=== PATIENT | female | born 1965 | race Caucasian/White ===

== ENCOUNTER 2016-09-19 | Outpatient (CLI) | payer MEDICARE, MEDICAID | END 2016-09-19 20:29 | disposition critical access hospital (66) | CPT/HCPCS: A0425; A0429 ==

== ENCOUNTER 2016-09-19 20:46 | Emergency (ER) | payer MEDICARE, MEDICAID ==
[2016-09-19] MEDS ORDERED: KETOROLAC 60 MG/2 ML VIAL IM STA (21:39)
[2016-09-19] MEDS ORDERED: KETOROLAC 30 MG/ML VIAL ONE (21:42)
[2016-09-19] MEDS ORDERED: IPRATROPIUM/ALBUTEROL 3 ML NEB INH STA (22:17)
[2016-09-19] MEDS ORDERED: IPRATROPIUM/ALBUTEROL 3 ML NEB INH ONE (22:28)
== END 2016-09-20 00:02 | disposition home or self-care (01) ==
DX: J44.1 Chronic obstructive pulmonary disease with (acute) exacerbation (principal); D72.829 Elevated white blood cell count, unspecified; E11.9 Type 2 diabetes mellitus without complications; F17.200 Nicotine dependence, unspecified, uncomplicated; Z88.0 Allergy status to penicillin; Z88.2 Allergy status to sulfonamides; Z88.1 Allergy status to other antibiotic agents
CPT/HCPCS: 36415; 71020; 80053; 81003; 83690; 85025; 87275; 87276; 94640; 96372; 99283; 99284; J7620

== ENCOUNTER 2016-09-26 | Outpatient (CLI) | payer MEDICARE, MEDICAID | END 2016-09-26 17:26 | disposition critical access hospital (66) | CPT/HCPCS: A0425; A0429 ==

== ENCOUNTER 2016-09-26 17:41 | Emergency (ER) | payer MEDICARE, MEDICAID ==
[2016-09-26] MEDS ORDERED: LORazepam 0.5 MG TABLET PO STA ×3 (18:46→22:47)
[2016-09-26] MEDS ORDERED: LORazepam 0.5 MG TABLET ONE ×3 (18:48→22:49)
[2016-09-26] MEDS ORDERED: OLANZapine ODT 5 MG TABLET TL ONE ×4 (19:21→22:49)
[2016-09-26] MEDS ORDERED: KETOROLAC 60 MG/2 ML VIAL IM STA (21:07)
[2016-09-26] MEDS ORDERED: KETOROLAC 60 MG/2 ML VIAL ONE (21:08)
== END 2016-09-27 09:58 ==
DX: F20.9 Schizophrenia, unspecified (principal); R45.851 Suicidal ideations; E11.9 Type 2 diabetes mellitus without complications; F17.200 Nicotine dependence, unspecified, uncomplicated; S20.319A Abrasion of unspecified front wall of thorax, initial encounter; X78.9XXA Intentional self-harm by unspecified sharp object, initial encounter
CPT/HCPCS: 36415; 80053; 80306; 80307; 81001; 83690; 85025; 87086; 96372; 99285; A9270; G0480

== ENCOUNTER 2016-10-01 22:06 | Emergency (ER) | payer MEDICARE, MEDICAID ==
[2016-10-01] MEDS ORDERED: LORazepam 0.5 MG TABLET PO STA (22:19)
[2016-10-01] MEDS ORDERED: KETOROLAC 30 MG/ML VIAL IM STA (22:19)
[2016-10-01] MEDS ORDERED: KETOROLAC 30 MG/ML VIAL ONE (22:23)
[2016-10-01] MEDS ORDERED: LORazepam 0.5 MG TABLET ONE (22:23)
== END 2016-10-02 08:00 ==
DX: F33.2 Major depressive disorder, recurrent severe without psychotic features (principal); R45.851 Suicidal ideations; E11.9 Type 2 diabetes mellitus without complications; G40.909 Epilepsy, unspecified, not intractable, without status epilepticus; K21.9 Gastro-esophageal reflux disease without esophagitis; J44.9 Chronic obstructive pulmonary disease, unspecified; F17.200 Nicotine dependence, unspecified, uncomplicated
CPT/HCPCS: 36415; 80053; 80164; 80306; 80307; 81001; 83036; 83690; 84443; 85025; 96372; 99283; 99285; A9270; G0480

== ENCOUNTER 2016-10-02 | Outpatient (CLI) | payer MEDICARE, MEDICAID | END 2016-10-02 08:18 | DX: R45.851 Suicidal ideations (principal) | CPT/HCPCS: A0425; A0428 ==

== ENCOUNTER 2016-10-17 | Outpatient (CLI) | payer MEDICARE, MEDICAID | END 2016-10-17 19:08 | disposition critical access hospital (66) | DX: R45.851 Suicidal ideations (principal) | CPT/HCPCS: A0425; A0429 ==

== ENCOUNTER 2016-10-17 19:27 | Emergency (ER) | payer MEDICARE, MEDICAID ==
[2016-10-17] MEDS ORDERED: ACETAMINOPHEN 500 MG TABLET PO STA (22:03)
[2016-10-17] MEDS ORDERED: ACETAMINOPHEN 500 MG TABLET PO ONE (22:08)
[2016-10-18] MEDS ORDERED: MIRTAZAPINE 15 MG TABLET PO STA (00:11)
[2016-10-18] MEDS ORDERED: ACETAMINOPHEN 325 MG TABLET PO STA (07:51)
[2016-10-18] MEDS ORDERED: ACETAMINOPHEN 325 MG TABLET PO ONE (07:53)
[2016-10-18] MEDS ORDERED: PRAZOSIN 1 MG CAPSULE PO STA (08:23)
[2016-10-18] MEDS ORDERED: LORazepam 0.5 MG TABLET PO STA (08:25)
[2016-10-18] MEDS ORDERED: PANTOPRAZOLE 40 MG TABLET PO STA (08:25)
[2016-10-18] MEDS ORDERED: PANTOPRAZOLE 40 MG TABLET ONE (08:29)
[2016-10-18] MEDS ORDERED: LORazepam 0.5 MG TABLET ONE (08:29)
[2016-10-18] MEDS ORDERED: DIVALPROEX ER 250 MG TABLET PO SCH (09:00)
[2016-10-18] MEDS ORDERED: lamoTRIgine 25 MG TABLET PO SCH (09:00)
[2016-10-18] MEDS ORDERED: BUTALB/ACETAM/CAFF 50/325/40MG TABLET PO STA (13:27)
== END 2016-10-18 14:16 ==
DX: F41.9 Anxiety disorder, unspecified (principal); F32.9 Major depressive disorder, single episode, unspecified; R45.851 Suicidal ideations; F20.9 Schizophrenia, unspecified; E11.9 Type 2 diabetes mellitus without complications; G40.909 Epilepsy, unspecified, not intractable, without status epilepticus; J44.9 Chronic obstructive pulmonary disease, unspecified; F17.200 Nicotine dependence, unspecified, uncomplicated
CPT/HCPCS: 36415; 80053; 80306; 81003; 83690; 85025; 99284; 99285; A9270

== ENCOUNTER 2016-11-06 | Outpatient (CLI) | payer MEDICARE, MEDICAID | END 2016-11-06 00:13 | disposition critical access hospital (66) | CPT/HCPCS: A0425; A0429 ==

== ENCOUNTER 2016-11-06 00:31 | Emergency (ER) | payer MEDICARE, MEDICAID ==
[2016-11-06] MEDS ORDERED: ONDANSETRON ODT 4 MG TABLET TL STA (01:03)
[2016-11-06] MEDS ORDERED: KETOROLAC 60 MG/2 ML VIAL IM STA (01:03)
[2016-11-06] MEDS ORDERED: PROMETHAZINE 25 MG/1 ML VIAL IM STA (01:04)
[2016-11-06] MEDS ORDERED: PROMETHAZINE 25 MG/1 ML VIAL ONE (01:16)
[2016-11-06] MEDS ORDERED: ONDANSETRON ODT 4 MG TABLET ONE (01:16)
[2016-11-06] MEDS ORDERED: KETOROLAC 60 MG/2 ML VIAL ONE (01:16)
[2016-11-06] MEDS ORDERED: HYDROmorphone 1 MG/ML SYRINGE IM STA (02:04)
[2016-11-06] MEDS ORDERED: HYDROmorphone 1 MG/ML SYRINGE ONE (02:07)
== END 2016-11-06 05:05 | disposition home or self-care (01) ==
DX: G44.89 Other headache syndrome (principal); M54.9 Dorsalgia, unspecified; T25.031A Burn of unspecified degree of right toe(s) (nail), initial encounter; X58.XXXA Exposure to other specified factors, initial encounter; G40.909 Epilepsy, unspecified, not intractable, without status epilepticus; E11.9 Type 2 diabetes mellitus without complications; J44.9 Chronic obstructive pulmonary disease, unspecified; F17.200 Nicotine dependence, unspecified, uncomplicated; Z86.73 Personal history of transient ischemic attack (TIA), and cerebral infarction without residual deficits
CPT/HCPCS: 96372; 99283; 99284; J1170; Q0162

== ENCOUNTER 2016-11-11 | Outpatient (CLI) | payer MEDICARE, MEDICAID | END 2016-11-11 21:41 | disposition critical access hospital (66) | CPT/HCPCS: A0425; A0427 ==

== ENCOUNTER 2016-11-11 22:00 | Emergency (ER) | payer MEDICARE, MEDICAID ==
[2016-11-11] MEDS ORDERED: IPRATROPIUM/ALBUTEROL 3 ML NEB INH STA (22:04)
[2016-11-11] MEDS ORDERED: KETOROLAC 60 MG/2 ML VIAL IM STA (22:50)
[2016-11-11] MEDS ORDERED: KETOROLAC 60 MG/2 ML VIAL ONE (23:02)
[2016-11-11] MEDS ORDERED: IPRATROPIUM 0.2 MG/ML NEB INH ONE (23:25)
[2016-11-12] MEDS ORDERED: predniSONE 20 MG TABLET PO STA (00:22)
[2016-11-12] MEDS ORDERED: predniSONE 20 MG TABLET ONE (00:37)
== END 2016-11-12 00:53 | disposition home or self-care (01) ==
DX: J44.9 Chronic obstructive pulmonary disease, unspecified (principal); F17.200 Nicotine dependence, unspecified, uncomplicated; E11.9 Type 2 diabetes mellitus without complications; F20.9 Schizophrenia, unspecified
CPT/HCPCS: 81003; 94640; 96372; 99284; A9270; J7512

== ENCOUNTER 2016-12-24 15:54 | Outpatient (CLI) | payer MEDICARE, MEDICAID | END 2016-12-24 15:55 | disposition critical access hospital (66) | DX: R05 Cough (principal); R07.81 Pleurodynia | CPT/HCPCS: A0425; A0427 ==

== ENCOUNTER 2016-12-24 16:14 | Inpatient (IN) | payer MEDICARE, MEDICAID ==
[2016-12-24] MEDS ORDERED: ALBUTEROL NEB 2.5 MG/3 ML INH STA (16:27)
[2016-12-24] MEDS ORDERED: predniSONE 20 MG TABLET PO STA (16:27)
[2016-12-24] MEDS ORDERED: predniSONE 20 MG TABLET ONE (16:31)
[2016-12-24] MEDS ORDERED: ALBUTEROL NEB 2.5 MG/3 ML INH ONE (16:38)
[2016-12-24] MEDS ORDERED: IPRATROPIUM/ALBUTEROL 3 ML NEB INH ONE (16:53)
[2016-12-24] MEDS ORDERED: IPRATROPIUM/ALBUTEROL 3 ML NEB INH STA (16:57)
[2016-12-24] MEDS ORDERED: LEVALBUTEROL 1.25 MG INH ONE ×2 (17:29→17:38)
[2016-12-24] MEDS ORDERED: LEVALBUTEROL 1.25 MG INH STA (17:36)
[2016-12-24] MEDS ORDERED: SODIUM CHLORIDE FLUSH 0.9% 10 ML SYRINGE IVP PRN (18:41)
[2016-12-24] MEDS ORDERED: ALBUTEROL NEB 2.5 MG/3 ML INH PRN (18:45)
[2016-12-24] MEDS: IPRATROPIUM/ALBUTEROL 3 ML NEB INH PRN (20:40)
[2016-12-24] MEDS: SODIUM CHLORIDE 0.9% 1,000 ML IV SCH (21:15)
[2016-12-24] MEDS: SODIUM CHLORIDE FLUSH 0.9% 10 ML SYRINGE IVP SCH (21:15)
[2016-12-24] MEDS: methylPREDNISolone SUCCINATE 40 MG/ML VIAL IVP SCH (21:15)
[2016-12-24] MEDS: lamoTRIgine 25 MG TABLET PO SCH (21:15)
[2016-12-24] MEDS: INSULIN ASPART 300 UNIT/3 ML PEN SUBQ SCH (21:16)
[2016-12-24] MEDS: LORazepam 0.5 MG TABLET PO SCH (21:16)
[2016-12-25] MEDS ORDERED: ACETAMINOPHEN 325 MG TABLET PO PRN (00:24)
[2016-12-25] MEDS ORDERED: BUTALB/ACETAM/CAFF 50/325/40MG TABLET PO PRN (00:25)
[2016-12-25] MEDS: SODIUM CHLORIDE FLUSH 0.9% 10 ML SYRINGE IVP SCH ×3 (05:51→20:49)
[2016-12-25] MEDS: methylPREDNISolone SUCCINATE 40 MG/ML VIAL IVP SCH ×3 (05:51→20:49)
[2016-12-25] MEDS: PANTOPRAZOLE 40 MG TABLET PO SCH ×2 (06:03→16:29)
[2016-12-25] MEDS: oxyCODONE 5 MG TABLET PO PRN ×2 (06:03→11:05)
[2016-12-25] MEDS: SODIUM CHLORIDE 0.9% 1,000 ML IV SCH (06:58)
[2016-12-25] MEDS ORDERED: NON FORMULARY MED (Omeprazole [Prilosec] 20 MG) PO SCH (07:00)
[2016-12-25] MEDS: IPRATROPIUM/ALBUTEROL 3 ML NEB INH PRN ×3 (08:30→21:01)
[2016-12-25] MEDS: ENOXAPARIN 40 MG/0.4 ML SYRINGE SUBQ SCH (09:00)
[2016-12-25] MEDS: POLYETHYLENE GLYCOL 3350 17 GM PACKET PO SCH (09:00)
[2016-12-25] MEDS: LORazepam 0.5 MG TABLET PO SCH ×2 (09:01→20:49)
[2016-12-25] MEDS: lamoTRIgine 25 MG TABLET PO SCH ×2 (09:01→20:49)
[2016-12-25] MEDS: ESCITALOPRAM 10 MG TABLET PO SCH (09:01)
[2016-12-25] MEDS: VERAPAMIL ER 180 MG TABLET PO SCH (09:01)
[2016-12-25] MEDS: INSULIN ASPART 300 UNIT/3 ML PEN SUBQ SCH ×4 (09:01→21:01)
[2016-12-25] MEDS ORDERED: BENZOCAINE/MENTHOL LOZENGE MM PRN (20:55)
[2016-12-25] MEDS ORDERED: OLANZapine ODT 5 MG TABLET TL SCH (21:00)
[2016-12-26] MEDS: PANTOPRAZOLE 40 MG TABLET PO SCH (06:27)
[2016-12-26] MEDS: methylPREDNISolone SUCCINATE 40 MG/ML VIAL IVP SCH (06:27)
[2016-12-26] MEDS: SODIUM CHLORIDE FLUSH 0.9% 10 ML SYRINGE IVP SCH (06:27)
[2016-12-26] MEDS: IPRATROPIUM/ALBUTEROL 3 ML NEB INH PRN (07:40)
[2016-12-26] MEDS: LORazepam 0.5 MG TABLET PO SCH (08:28)
[2016-12-26] MEDS: lamoTRIgine 25 MG TABLET PO SCH (08:28)
[2016-12-26] MEDS: POLYETHYLENE GLYCOL 3350 17 GM PACKET PO SCH (08:29)
[2016-12-26] MEDS: VERAPAMIL ER 180 MG TABLET PO SCH (08:29)
[2016-12-26] MEDS: ESCITALOPRAM 10 MG TABLET PO SCH (08:29)
[2016-12-26] MEDS: ENOXAPARIN 40 MG/0.4 ML SYRINGE SUBQ SCH (08:29)
[2016-12-26] MEDS: INSULIN ASPART 300 UNIT/3 ML PEN SUBQ SCH (08:40)
[2016-12-26] MEDS ORDERED: predniSONE 20 MG TABLET PO SCH (09:00)
== END 2016-12-26 12:53 | disposition home or self-care (01) | DRG 189 ==
DX: J96.20 Acute and chronic respiratory failure, unspecified whether with hypoxia or hypercapnia (principal); F17.200 Nicotine dependence, unspecified, uncomplicated; J44.1 Chronic obstructive pulmonary disease with (acute) exacerbation; E11.9 Type 2 diabetes mellitus without complications; F32.9 Major depressive disorder, single episode, unspecified; K44.9 Diaphragmatic hernia without obstruction or gangrene; F41.9 Anxiety disorder, unspecified; F20.9 Schizophrenia, unspecified; G40.909 Epilepsy, unspecified, not intractable, without status epilepticus; F17.210 Nicotine dependence, cigarettes, uncomplicated; K21.9 Gastro-esophageal reflux disease without esophagitis; Z79.52 Long term (current) use of systemic steroids; F43.10 Post-traumatic stress disorder, unspecified; Z79.899 Other long term (current) drug therapy; Z99.81 Dependence on supplemental oxygen; Z87.01 Personal history of pneumonia (recurrent); Z86.73 Personal history of transient ischemic attack (TIA), and cerebral infarction without residual deficits

== ENCOUNTER 2017-01-20 16:46 | Outpatient (CLI) | payer MEDICARE, MEDICAID | END 2017-01-20 16:47 | disposition critical access hospital (66) | LOC: EMS 16:46 | PROVIDERS: ATTEND Surgery | DX: R10.9 Unspecified abdominal pain (principal); M25.519 Pain in unspecified shoulder | CPT/HCPCS: A0425; A0429 ==

== ENCOUNTER 2017-01-20 17:08 | Emergency (ER) | payer MEDICARE, MEDICAID ==
[2017-01-20] MEDS ORDERED: MAG HYDROX/AL HYDROX/SIMETH 30 ML UDC PO STA (17:22)
[2017-01-20] MEDS ORDERED: LIDOCAINE VISCOUS 2% 15 ML UDC MM STA (17:22)
--- NOTE | 2017-01-20 17:26 | ED Physician Documentation ---
PD HPI ABD PAIN - Stated complaint Stated Complaint: abd px - Chief complaint Chief Complaint: Abd Pain - History obtained from History obtained from: Patient, EMS - Additional information Additional information: 51-year-old woman with history of cholecystectomy, appendectomy, hiatal hernia and gastritis by EEG a little under a year ago presents with a week and a half of constant upper abdominal pain not related to eating. She tried Tylenol 3 without any relief. She is not currently on a PPI cousin the past PPI made her feel nauseous. Review of Systems Ten Systems: 10 systems reviewed and negative Constitutional: denies: Fever, Chills Nose: reports: Reviewed and negative Cardiac: reports: Reviewed and negative Respiratory: reports: Reviewed and negative PD PAST MEDICAL HISTORY - Past Medical History Cardiovascular: Other Respiratory: COPD, Pneumonia Neuro: TIA, Seizure disorder Endocrine/Autoimmune: Type 2 diabetes GI: GERD, Hiatal hernia WEB UI DEVELOPER: None : None HEENT: None Psych: Schizophrenia Musculoskeletal: None Derm: None - Past Surgical History Past Surgical History: Yes General: Bowel surgery Ortho: Other /WEB UI DEVELOPER: 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 HEENT: Cataracts - Present Medications Home Medications: Ambulatory Orders Medication Instructions Recorded Confirmed Verapamil ER [Calan SA] 180 mg PO DAILY 03/25/16 01/20/17 Lamotrigine 25 mg PO DAILY 06/20/16 01/20/17 Olanzapine 10 mg PO BID 06/20/16 01/20/17 Omeprazole [PriLOSEC] 20 mg PO BIDAC 06/20/16 01/20/17 Lorazepam [Ativan] 1 mg ORAL QPM 10/18/16 01/20/17 Albuterol Sulf [Ventolin Hfa 2 puffs INH Q4H PRN 12/25/16 01/20/17 Inhaler] Citalopram Hydrobromide 40 mg PO DAILY 12/25/16 01/20/17 [Citalopram HBr] Divalproex ER [Depakote ER] 1,250 mg PO QPM 12/25/16 01/20/17 Divalproex ER [Depakote ER] 750 mg PO DAILY 12/25/16 01/20/17 Famotidine 20 mg PO DAILY 12/25/16 01/20/17 Lorazepam 0.5 mg PO DAILY 12/25/16 01/20/17 Prazosin HCl [Minipress] 5 mg PO QPM 12/25/16 01/20/17 Rizatriptan Benzoate [Rizatriptan] 10 mg PO ONCE PRN 12/25/16 01/20/17 Thioridazine HCl 50 mg PO BID PRN 12/25/16 01/20/17 Trazodone HCl 100 - 200 mg PO QPM PRN 12/25/16 01/20/17 hydrOXYzine PAMOATE [Vistaril] 50 mg PO BID PRN 12/25/16 01/20/17 Sucralfate 1 gm PO ACHS #90 tablet 01/20/17 - Allergies Allergies/Adverse Reactions: Allergies Allergy/AdvReac Type Severity Reaction Status Date / Time azithromycin Allergy Severe Hives Verified 01/20/17 17:19 haloperidol Allergy Severe Anaphylaxis Verified 01/20/17 17:19 Penicillins Allergy Severe Anaphylaxis Verified 01/20/17 17:19 amoxicillin [Amoxicillin] Allergy Intermediate Rash Verified 01/20/17 17:19 grapefruit Allergy Intermediate Rash Verified 01/20/17 17:19 iodine Allergy Intermediate Rash Verified 01/20/17 17:19 Sulfa (Sulfonamide Allergy Intermediate Rash Verified 01/20/17 17:19 Antibiotics) haloperidol lactate * AdvReac Rash Verified 01/20/17 17:19 [From Haldol] - Social History Does the pt smoke?: Yes Smoking Status: Current every day smoker Does the pt drink ETOH?: No Does the pt have substance abuse?: No - Immunizations Immunizations are current?: No Immunizations: TDAP >10years/unknown - POLST Patient has POLST: No PD ED PE NORMAL - Vitals Vital signs reviewed: Yes - General General: Alert and oriented X 3, No acute distress - Abdomen Abdomen: Normal bowel sounds, Soft, Other (Mild epigastric TTP) - Neuro Neuro: Alert and oriented X 3, Normal speech - Psych Psych: Normal mood, Normal affect Results - Vitals Vitals: Vital Signs - 24 hr 01/20/17 01/20/17 17:11 18:25 Temperature 98.6 C H Heart Rate 81 72 Respiratory 18 18 Rate Blood Pressure 133/84 H 140/75 H O2 Saturation 91 L 95 Oxygen O2 Source [With Activity] Room air O2 Source [Without Activity] Room air O2 Source Room air - Labs Labs: Laboratory Tests 01/20/17 01/20/17 17:28 17:28 WBC 11.7 H RBC 4.81 Hgb 14.1 Hct 43.5 MCV 90.5 MCH 29.4 MCHC 32.5 RDW 15.6 H Plt Count 321 MPV 9.3 Neut # Not Reportable Lymph # Not Reportable [place] # Not Reportable Eos # Not Reportable Baso # Not Reportable Absolute Nucleated RBC Not Reportable Total Counted 100 Band Neuts % (Manual) 2 Reactive Lymphs % (Man) 5 Neutrophils # (Manual) 5.6 Lymphocytes # (Manual) 4.8 H Monocytes # (Manual) 1.2 H Eosinophils # (Manual) 0.1 Nucleated RBCs Not Reportable Differential Comment MANUAL DIFFERENTIAL Platelet Estimate NORMAL (130-450,000) Platelet Morphology NORMAL APPEARANCE RBC Morph Micro Appear 1+ ANISOCYTOSIS Sodium 139 Potassium 4.5 Chloride 105 Carbon Dioxide 27 Anion Gap 7.0 BUN 15 Creatinine 0.9 Estimated GFR (MDRD) 66 L Glucose 109 H Calcium 9.2 Total Bilirubin 0.2 AST 19 ALT 15 Alkaline Phosphatase 61 Total Protein 7.0 Albumin 3.7 Globulin 3.3 Albumin/Globulin Ratio 1.1 Lipase < 10 L - Rads (name of study) Ct A/P Radiology: EMP read contemporaneously (NAD) PD MEDICAL DECISION MAKING - ED course ED course: 51-year-old woman with upper dominant pain and known history of gastritis and hiatal hernia presents with upper abdominal pain not related the ED. She has no gallbladder or appendix. A GI cocktail was tried with absolutely no relief, at that juncture CT was ordered. Also morphine IV. Her CT was normal. She refused to go back on a PPI, because of the side effects. We discussed potentially Pepcid, but her insurance won't cover it. Departure - Departure Disposition: 01 Home, Self Care Clinical Impression: Abdominal pain Qualifiers: Abdominal location: epigastric Qualified Code(s): R10.13 - Epigastric pain Condition: Good Record reviewed to determine appropriate education?: Yes Instructions: Abdominal Pain Prescriptions: Sucralfate 1 gm PO ACHS #90 tablet Comments: Call your doctor to arrange a follow up appointment. Make the next available appointment. In the interim return anytime if worse or if new symptoms develop. Your blood pressure was elevated today on check in to the emergency department. This does not mean that you have hypertension, it is a common phenomenon to check into the emergency department and have elevated blood pressure. I recommend that you see your primary care physician within the week to have it rechecked when you're feeling better.
[2017-01-20] MEDS ORDERED: LIDOCAINE VISCOUS 2% 15 ML UDC MM ONE (17:31)
[2017-01-20] MEDS ORDERED: MAG HYDROX/AL HYDROX/SIMETH 30 ML UDC ONE (17:31)
[2017-01-20 17:36] LABS: EOSINOPHILS % (AUTO) 1.7 %; HCT - HEMATOCRIT 43.5 % (37.0-47.0); HGB - HEMOGLOBIN 14.1 g/dL (12.0-16.0); LYMPHOCYTES % (AUTO) 32.7 %; MEAN CORPUSCULAR HEMOGLOBIN 29.4 pg (27.0-31.0); MEAN CORPUSCULAR HGB CONC 32.5 g/dL (32.0-36.0); MEAN CORPUSCULAR VOLUME 90.5 fL (81.0-99.0); MEAN PLATELET VOLUME 9.3 fL (7.9-10.8); MONOCYTES % (AUTO) 17.3 %; NEUTROPHILS % (AUTO) 47.3 %; RED BLOOD COUNT 4.81 10^6/uL (4.20-5.40); RED CELL DISTRIBUTION WIDTH 15.6 % (12.0-15.0); UNCORRECTED WHITE BLOOD COUNT 11.7 x10^3/uL; WHITE BLOOD COUNT 11.7 x10^3/uL (4.8-10.8)
[2017-01-20 17:57] LABS: ALBUMIN/GLOBULIN RATIO 1.1 (1.0-2.2); BILIRUBIN,TOTAL 0.2 mg/dL (0.2-1.0); BUN - BLOOD UREA NITROGEN 15 mg/dL (6-20); CALCIUM 9.2 mg/dL (8.5-10.3); CARBON DIOXIDE - CO2 27 mmol/L (21-32); CHLORIDE 105 mmol/L (101-111); CREATININE 0.9 mg/dL (0.4-1.0); GFR - MDRD 66 (>89); GLUCOSE 109 mg/dL (70-100); LIPASE < 10 U/L (22-51); POTASSIUM 4.5 mmol/L (3.5-5.0); SODIUM 139 mmol/L (135-145)
[2017-01-20] MEDS ORDERED: MORPHINE 2 MG/ML SYRINGE ONE (18:03)
[2017-01-20] MEDS ORDERED: MORPHINE 2 MG/ML SYRINGE IVP STA (18:03)
[2017-01-20 18:30] LABS: BAND NEUTROPHILS % (MANUAL) 2 %; EOSINOPHILS % (MANUAL) 1 %; LYMPHOCYTES % (MANUAL) 36 %; NEUTROPHILS % (MANUAL) 46 %; PLATELET ESTIMATE, MANUAL NORMAL (130-450,000) (NORMAL); PLATELET MORPHOLOGY NORMAL APPEARANCE (NORMAL); TOTAL CELLS COUNTED 100
[2017-01-20 18:31] LABS: NP AUTO DIFFERENTIAL? YES; NP MAN DIFFERENTIAL? NO
[2017-01-20] MEDS ORDERED: IOPAMIDOL-300 100 ML VIAL IVP ONE (19:01)
--- NOTE | 2017-01-20 19:34 | CT Preliminary Report ---
Exam: CT Abdomen/Pelvis W/ IMPRESSION: 1. Status post cholecystectomy, splenectomy, and hysterectomy. 2. No evidence of acute abdominal or pelvic process. [facility] SITE ID: [id number]
--- NOTE | 2017-01-20 19:37 | CT Report ---
EXAM: CT ABDOMEN AND PELVIS EXAM DATE: 01/20/2017 07:08 PM. CLINICAL HISTORY: Upper abdominal pain. COMPARISONS: 07/10/2016. TECHNIQUE: Routine helical CT imaging was performed through the abdomen and pelvis. IV contrast: 100 cc Isovue-300. Enteric contrast: No. Reconstructions: Coronal and sagittal. In accordance with CT protocol optimization, one or more of the following dose reduction techniques w ere utilized for this exam: automated exposure control, adjustment of mA and/or KV based on patient s ize, or use of iterative reconstructive technique. FINDINGS: Lung Bases: Unremarkable. Liver: Normal. No masses. Gallbladder/Bile Ducts: Gallbladder is surgically absent. No evidence of biliary obstruction. Spleen: Surgically absent. Small splenule is noted in the left paracolic gutter. Pancreas: Normal. Adrenal Glands: Normal. Kidneys: Normal. No masses or hydronephrosis. Peritoneal Cavity/Bowel: Normal. No free fluid, free air or adenopathy. No masses or acute inflammato ry process. The appendix is not visualized. Pelvic Organs: Urinary bladder has normal contour. Patient is status post hysterectomy. Vasculature: No aneurysms or other significant abnormality. Bones: No significant abnormality. Other: None. IMPRESSION: 1. Status post cholecystectomy, splenectomy, and hysterectomy. 2. No evidence of acute abdominal or pelvic process. [facility] Referring Provider Line: [phone] SITE ID: [id number]
[2017-01-20] MEDS ORDERED: HYDROcod/ACET 5/325 Prepack 6 PO STA (19:48)
[2017-01-20] MEDS ORDERED: HYDROcod/ACET 5/325 Prepack 6 PO ONE (19:52)
[2017-01-20 19:54] VITALS: BP 133/77
== END 2017-01-20 20:02 | disposition home or self-care (01) ==
LOC: ED 17:08
DX: R10.13 Epigastric pain (principal); R03.0 Elevated blood-pressure reading, without diagnosis of hypertension; E11.9 Type 2 diabetes mellitus without complications; J44.9 Chronic obstructive pulmonary disease, unspecified; K21.9 Gastro-esophageal reflux disease without esophagitis; Z86.73 Personal history of transient ischemic attack (TIA), and cerebral infarction without residual deficits; Z87.19 Personal history of other diseases of the digestive system; F17.200 Nicotine dependence, unspecified, uncomplicated
CPT/HCPCS: 36415; 74177; 80053; 83690; 85025; 96374; 99283; 99284; A9270; Q9967

== ENCOUNTER 2017-02-02 09:29 | Emergency (ER) | payer MEDICARE, MEDICAID ==
[2017-02-02 11:20] VITALS: BP 104/67
--- NOTE | 2017-02-02 12:39 | ED Physician Documentation ---
PD HPI UPPER EXT INJURY - Stated complaint Stated Complaint: LEFT SHOULDER INJ - Chief complaint Chief Complaint: Ext Problem - History obtained from History obtained from: Patient - History of Present Illness Location: Left, Shoulder Type of injury: Other (has been using it with simple lifting and noted onset of pain with ROM, particularly abduction and lifting.). No: Fall, Twist, Blunt / blow Timing - duration: Days Review of Systems Constitutional: denies: Fever, Chills Skin: denies: Rash, Lesions Musculoskeletal: reports: Joint pain (left shoulder suprascapular area). denies : Neck pain, Back pain Neurologic: denies: Focal weakness, Numbness PD PAST MEDICAL HISTORY - Past Medical History Past Medical History: Yes Cardiovascular: Other Respiratory: COPD, Pneumonia Neuro: TIA, Seizure disorder Endocrine/Autoimmune: Type 2 diabetes GI: GERD, Hiatal hernia COVERSTITCH BINDER: None : None HEENT: None Psych: Schizophrenia Musculoskeletal: None Derm: None - Past Surgical History Past Surgical History: Yes General: Bowel surgery Ortho: Other /COVERSTITCH BINDER: 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 HEENT: Cataracts - Present Medications Home Medications: Ambulatory Orders Medication Instructions Recorded Confirmed Verapamil ER [Calan SA] 180 mg PO DAILY 03/25/16 01/20/17 Lamotrigine 25 mg PO DAILY 06/20/16 01/20/17 Olanzapine 10 mg PO BID 06/20/16 01/20/17 Omeprazole [PriLOSEC] 20 mg PO BIDAC 06/20/16 01/20/17 Lorazepam [Ativan] 1 mg ORAL QPM 10/18/16 01/20/17 Albuterol Sulf [Ventolin Hfa 2 puffs INH Q4H PRN 12/25/16 01/20/17 Inhaler] Citalopram Hydrobromide 40 mg PO DAILY 12/25/16 01/20/17 [Citalopram HBr] Divalproex ER [Depakote ER] 1,250 mg PO QPM 12/25/16 01/20/17 Divalproex ER [Depakote ER] 750 mg PO DAILY 12/25/16 01/20/17 Famotidine 20 mg PO DAILY 12/25/16 01/20/17 Lorazepam 0.5 mg PO DAILY 12/25/16 01/20/17 Prazosin HCl [Minipress] 5 mg PO QPM 12/25/16 01/20/17 Rizatriptan Benzoate [Rizatriptan] 10 mg PO ONCE PRN 12/25/16 01/20/17 Thioridazine HCl 50 mg PO BID PRN 12/25/16 01/20/17 Trazodone HCl 100 - 200 mg PO QPM PRN 12/25/16 01/20/17 hydrOXYzine PAMOATE [Vistaril] 50 mg PO BID PRN 12/25/16 01/20/17 Sucralfate 1 gm PO ACHS #90 tablet 01/20/17 Naproxen [Naprosyn] 500 mg PO BID #20 tablet 02/02/17 - Allergies Allergies/Adverse Reactions: Allergies Allergy/AdvReac Type Severity Reaction Status Date / Time azithromycin Allergy Severe Hives Verified 01/20/17 17:19 haloperidol Allergy Severe Anaphylaxis Verified 01/20/17 17:19 Penicillins Allergy Severe Anaphylaxis Verified 01/20/17 17:19 amoxicillin [Amoxicillin] Allergy Intermediate Rash Verified 01/20/17 17:19 grapefruit Allergy Intermediate Rash Verified 01/20/17 17:19 iodine Allergy Intermediate Rash Verified 01/20/17 17:19 Sulfa (Sulfonamide Allergy Intermediate Rash Verified 01/20/17 17:19 Antibiotics) haloperidol lactate * AdvReac Rash Verified 01/20/17 17:19 [From Haldol] - Social History Does the pt smoke?: Yes Smoking Status: Current every day smoker Does the pt drink ETOH?: No Does the pt have substance abuse?: No - Immunizations Immunizations are current?: No Immunizations: TDAP >10years/unknown - POLST Patient has POLST: No PD ED PE NORMAL - Vitals Vital signs reviewed: Yes - General General: Alert and oriented X 3, No acute distress, Well developed/nourished - Neck Neck: Supple, no meningeal sign, No bony TTP, No adenopathy - Cardiac Cardiac: RRR, No murmur - Respiratory Respiratory: Clear bilaterally - Derm Derm: Normal color, Warm and dry, No rash - Extremities Extremities: Other (left shoulder with some tenderness in suprascapular area. No bony tenderness nor deformity. No dislocation. ) - Neuro Neuro: Alert and oriented X 3, No motor deficit, No sensory deficit Results - Vitals Vitals: Oxygen O2 Source [With Activity] Room air O2 Source [Without Activity] Room air O2 Source Room air PD MEDICAL DECISION MAKING - ED course Complexity details: considered differential (seems rotator cuff like, presume strain. No impact and exam does not suggest fx nor dislocation. ), d/w patient Departure - Departure Disposition: 01 Home, Self Care Clinical Impression: Shoulder pain, left Qualifiers: Chronicity: acute Qualified Code(s): M25.512 - Pain in left shoulder Condition: Stable Record reviewed to determine appropriate education?: Yes Follow-Up: María Elena Ponce MD [Primary Care Provider] - Prescriptions: Naproxen [Naprosyn] 500 mg PO BID #20 tablet Comments: Continue usual medications. Add Naproxen twice daily. Follow up Ortho February 12 as planned. Discharge Date/Time: 02/02/17 13:28
[2017-02-02] MEDS ORDERED: KETOROLAC 60 MG/2 ML VIAL IM STA (12:47)
[2017-02-02] MEDS ORDERED: TRIAMCINOLONE 40 MG/ML VIAL IM STA (12:48)
[2017-02-02] MEDS ORDERED: TRIAMCINOLONE 40 MG/ML VIAL ONE (12:58)
[2017-02-02] MEDS ORDERED: KETOROLAC 60 MG/2 ML VIAL ONE (12:58)
== END 2017-02-02 13:28 | disposition home or self-care (01) ==
LOC: ED 09:29
DX: M25.512 Pain in left shoulder (principal); X50.9XXA Other and unspecified overexertion or strenuous movements or postures, initial encounter; E11.9 Type 2 diabetes mellitus without complications; F17.200 Nicotine dependence, unspecified, uncomplicated; Z86.73 Personal history of transient ischemic attack (TIA), and cerebral infarction without residual deficits
CPT/HCPCS: 96372; 99283

== ENCOUNTER 2017-02-15 18:35 | Outpatient (CLI) | payer MEDICARE, MEDICAID | END 2017-02-15 18:36 | disposition critical access hospital (66) | LOC: EMS 18:35 | PROVIDERS: ATTEND Surgery | DX: T43.592A Poisoning by other antipsychotics and neuroleptics, intentional self-harm, initial encounter (principal); T43.3X2A Poisoning by phenothiazine antipsychotics and neuroleptics, intentional self-harm, initial encounter; R44.0 Auditory hallucinations | CPT/HCPCS: A0425; A0429 ==

== ENCOUNTER 2017-02-15 18:57 | Emergency (ER) | payer MEDICARE, MEDICAID ==
[2017-02-15 19:31] LABS: BASOPHILS # (AUTO) 0.1 10^3/uL (0.0-0.1); BASOPHILS % (AUTO) 0.7 %; EOSINOPHILS # (AUTO) 0.1 10^3/uL (0.0-0.7); EOSINOPHILS % (AUTO) 0.6 %; HCT - HEMATOCRIT 43.4 % (37.0-47.0); HGB - HEMOGLOBIN 14.3 g/dL (12.0-16.0); LYMPHOCYTES # (AUTO) 3.3 10^3/uL (1.5-3.5); LYMPHOCYTES % (AUTO) 28.2 %; MEAN CORPUSCULAR HEMOGLOBIN 29.7 pg (27.0-31.0); MEAN CORPUSCULAR HGB CONC 32.9 g/dL (32.0-36.0); MEAN CORPUSCULAR VOLUME 90.1 fL (81.0-99.0); MEAN PLATELET VOLUME 8.7 fL (7.9-10.8); MONOCYTES # (AUTO) 1.6 10^3/uL (0.0-1.0); NEUTROPHILS # (AUTO) 6.6 10^3/uL (1.5-6.6); NEUTROPHILS % (AUTO) 56.5 %; NUCLEATED RED BLOOD CELLS AUTO 0.1 /100WBC; RED BLOOD COUNT 4.82 10^6/uL (4.20-5.40); RED CELL DISTRIBUTION WIDTH 16.4 % (12.0-15.0); UNCORRECTED WHITE BLOOD COUNT 11.8 x10^3/uL; WHITE BLOOD COUNT 11.8 x10^3/uL (4.8-10.8)
[2017-02-15 19:40] LABS: BUN - BLOOD UREA NITROGEN 13 mg/dL (6-20); CARBON DIOXIDE - CO2 24 mmol/L (21-32); CHLORIDE 104 mmol/L (101-111); CREATININE 0.8 mg/dL (0.4-1.0); GFR - MDRD 75 (>89); GLUCOSE 100 mg/dL (70-100); POTASSIUM 3.7 mmol/L (3.5-5.0); SODIUM 139 mmol/L (135-145)
[2017-02-15 19:47] LABS: PLATELET ESTIMATE, MANUAL NORMAL (130-450,000) (NORMAL); PLATELET MORPHOLOGY NORMAL APPEARANCE (NORMAL)
--- NOTE | 2017-02-15 22:08 | ED Physician Documentation ---
PD HPI MHE - Stated complaint Stated Complaint: SI - Chief complaint Chief Complaint: MHE - History obtained from History obtained from: Patient, Family - History of Present Illness Primary symptom: Suicidal ideation, Depression Timing - onset: Today, Chronic Contributing factors: Family Similar symptoms before: Work up / diagnostics, Treatment, Follow up Recently seen: Emergency Dept - Additional information Additional information: Patient is a 52 year old female with a history of depression with muliple ER visits, for depression who is presenting to the emergency department for depression. patient states that she took extra in a few of her medications. Patient states that she did not want to , but wanted to sleep. Upon my initial evaluation in the emergency department patient stated that she was feeling better. When i asked the patient what i could do for her, she stated that if we called her a cab she would like to go home. Review of Systems Constitutional: denies: Fever, Chills Eyes: denies: Loss of vision, Photophobia Ears: denies: Ear pain, Drainage/discharge Nose: reports: Congestion. denies: Rhinorrhea / runny nose Throat: denies: Oral lesions / sores Respiratory: denies: Cough GI: denies: Abdominal Pain, Nausea, Vomiting : denies: Dysuria, Frequency, Hesitancy Skin: denies: Rash, Lesions Musculoskeletal: denies: Neck pain, Back pain Neurologic: denies: Generalized weakness, Focal weakness, Syncope, Seizure, Confused, Headache, LOC Psychiatric: reports: Depressed. denies: Suicidal, Homicidal Immunocompromised: denies: Immunocompromised PD PAST MEDICAL HISTORY - Past Medical History Past Medical History: Yes Cardiovascular: Other Respiratory: COPD, Pneumonia Neuro: TIA, Seizure disorder Endocrine/Autoimmune: Type 2 diabetes GI: GERD, Hiatal hernia CAMPAIGN DIRECTOR: None : None HEENT: None Psych: Schizophrenia Musculoskeletal: None Derm: None - Past Surgical History Past Surgical History: Yes General: Bowel surgery Ortho: Other /CAMPAIGN DIRECTOR: 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 HEENT: Cataracts - Present Medications Home Medications: Ambulatory Orders Medication Instructions Recorded Confirmed Verapamil ER [Calan SA] 180 mg PO DAILY 03/25/16 02/15/17 Lamotrigine 25 mg PO DAILY 06/20/16 02/15/17 Olanzapine 10 mg PO BID 06/20/16 02/15/17 Omeprazole [PriLOSEC] 20 mg PO BIDAC 06/20/16 02/15/17 Lorazepam [Ativan] 1 mg ORAL QPM 10/18/16 02/15/17 Albuterol Sulf [Ventolin Hfa 2 puffs INH Q4H PRN 12/25/16 02/15/17 Inhaler] Citalopram Hydrobromide 40 mg PO DAILY 12/25/16 02/15/17 [Citalopram HBr] Divalproex ER [Depakote ER] 1,250 mg PO QPM 12/25/16 02/15/17 Divalproex ER [Depakote ER] 750 mg PO DAILY 12/25/16 02/15/17 Famotidine 20 mg PO DAILY 12/25/16 02/15/17 Lorazepam 0.5 mg PO DAILY 12/25/16 02/15/17 Prazosin HCl [Minipress] 5 mg PO QPM 12/25/16 02/15/17 Rizatriptan Benzoate [Rizatriptan] 10 mg PO ONCE PRN 12/25/16 02/15/17 Thioridazine HCl 50 mg PO BID PRN 12/25/16 02/15/17 Trazodone HCl 100 - 200 mg PO QPM PRN 12/25/16 02/15/17 hydrOXYzine PAMOATE [Vistaril] 50 mg PO BID PRN 12/25/16 02/15/17 Sucralfate 1 gm PO ACHS #90 tablet 01/20/17 02/15/17 Naproxen [Naprosyn] 500 mg PO BID #20 tablet 02/02/17 02/15/17 - Allergies Allergies/Adverse Reactions: Allergies Allergy/AdvReac Type Severity Reaction Status Date / Time azithromycin Allergy Severe Hives Verified 02/15/17 19:33 haloperidol Allergy Severe Anaphylaxis Verified 02/15/17 19:33 Penicillins Allergy Severe Anaphylaxis Verified 02/15/17 19:33 amoxicillin [Amoxicillin] Allergy Intermediate Rash Verified 02/15/17 19:33 grapefruit Allergy Intermediate Rash Verified 02/15/17 19:33 iodine Allergy Intermediate Rash Verified 02/15/17 19:33 Sulfa (Sulfonamide Allergy Intermediate Rash Verified 02/15/17 19:33 Antibiotics) haloperidol lactate * AdvReac Rash Verified 02/15/17 19:33 [From Haldol] - Social History Does the pt smoke?: Yes Smoking Status: Current every day smoker Does the pt drink ETOH?: No Does the pt have substance abuse?: No - Immunizations Immunizations are current?: No Immunizations: TDAP >10years/unknown - POLST Patient has POLST: No PD ED PE NORMAL - Vitals Vital signs reviewed: Yes - General General: Alert and oriented X 3, No acute distress, Well developed/nourished - HEENT HEENT: Atraumatic, PERRL, Pharynx benign - Neck Neck: Supple, no meningeal sign - Cardiac Cardiac: RRR, No murmur - Respiratory Respiratory: No respiratory distress, Clear bilaterally - Abdomen Abdomen: Soft, Non tender, Non distended - Derm Derm: Normal color, Warm and dry, No rash - Extremities Extremities: No deformity, Normal ROM s pain, No edema - Neuro Neuro: Alert and oriented X 3, No motor deficit, No sensory deficit, Normal speech PD ED PE EXPANDED - Psych Psych: Depressed. No: Suicidal, Homicidal, Tearful, Withdrawn, Poor eye contact , Non verbal, Anxious Results - Vitals Vitals: Vital Signs - 24 hr 02/15/17 02/15/17 02/15/17 19:01 19:15 20:45 Temperature 36.5 C Heart Rate 82 77 68 Respiratory 16 13 12 Rate Blood Pressure 136/84 H 138/79 H 129/63 O2 Saturation 95 95 95 02/15/17 02/15/17 21:55 22:29 Temperature Heart Rate 74 65 Respiratory 16 20 Rate Blood Pressure 143/67 H 138/78 H O2 Saturation 95 96 Oxygen O2 Source [With Activity] Room air O2 Source [Without Activity] Room air O2 Source Room air - Labs Labs: Laboratory Tests 02/15/17 02/15/17 02/15/17 19:02 19:25 19:25 WBC 11.8 H RBC 4.82 Hgb 14.3 Hct 43.4 MCV 90.1 MCH 29.7 MCHC 32.9 RDW 16.4 H Plt Count 248 MPV 8.7 Neut # 6.6 Lymph # 3.3 [place] # 1.6 H Eos # 0.1 Baso # 0.1 Absolute Nucleated RBC 0.01 Nucleated RBCs 0.1 Manual Slide Review Indicated Platelet Estimate NORMAL (130-450,000) Platelet Morphology NORMAL APPEARANCE RBC Morph Micro Appear 1+ ANISOCYTOSIS Sodium 139 Potassium 3.7 Chloride 104 Carbon Dioxide 24 Anion Gap 11.0 BUN 13 Creatinine 0.8 Estimated GFR (MDRD) 75 L Glucose 100 Calcium 9.0 Urine Opiates Screen NEGATIVE Ur Oxycodone Screen NEGATIVE Urine Methadone Screen NEGATIVE Ur Propoxyphene Screen NEGATIVE Ur Barbiturates Screen NEGATIVE Ur Tricyclics Screen NEGATIVE Ur Phencyclidine Scrn NEGATIVE Ur Amphetamine Screen NEGATIVE U Methamphetamines Scrn NEGATIVE U Benzodiazepines Scrn POSITIVE H Urine Cocaine Screen NEGATIVE U Cannabinoids Screen POSITIVE H Ethyl Alcohol < 5.0 PD MEDICAL DECISION MAKING - ED course Complexity details: reviewed old records, reviewed results, re-evaluated patient , considered differential, d/w patient ED course: Patient was seen and examined at bedside. Patient was awake, alert and in no distress. Patient reported that she had taken extra medication but there were no signs of if. Patient was observed for 4 hours with no compromise. Patient stated that she felt safe to leave and that she was not suicidal. Patient required no further work up and was stable for discharge with outpatient follow up. Departure - Departure Disposition: 01 Home, Self Care Clinical Impression: Depression Condition: Good Instructions: ED Depression Follow-Up: Estelle Cleveland MD [Primary Care Provider] - As Needed Comments: You should follow up with your doctor this week for re-evaluation. You should return to the emergency department for thoughts of hurting yourself or hurting anyone else. Discharge Date/Time: 02/15/17 22:29
[2017-02-15 22:31] VITALS: BP 138/78
== END 2017-02-15 22:29 | disposition home or self-care (01) ==
LOC: EDUNIT# → ED 18:57
DX: F32.9 Major depressive disorder, single episode, unspecified (principal); R45.851 Suicidal ideations; J44.9 Chronic obstructive pulmonary disease, unspecified; Z86.73 Personal history of transient ischemic attack (TIA), and cerebral infarction without residual deficits; E11.9 Type 2 diabetes mellitus without complications; K21.9 Gastro-esophageal reflux disease without esophagitis; F17.200 Nicotine dependence, unspecified, uncomplicated
CPT/HCPCS: 36415; 80048; 80306; 85025; 93005; 93010; 99284; G0480; 80320

== ENCOUNTER 2017-02-22 15:42 | Outpatient (CLI) | payer MEDICARE, MEDICAID ==
--- NOTE | 2017-02-22 18:34 | MRI Report ---
EXAM: LEFT SHOULDER MRI WITHOUT CONTRAST EXAM DATE: 02/22/2017 05:13 PM. CLINICAL HISTORY: Left shoulder chronic pain. COMPARISON: None. TECHNIQUE: Multiplanar, multisequence T1-weighted and fluid-sensitive sequences of the shoulder witho ut contrast. Other: None. FINDINGS: Acromioclavicular Region: The acromion is type II. AC joint is moderately osteoarthritic. The coracoa cromial and coracoclavicular ligaments are intact. Trace amount of bursal fluid. Glenohumeral Region: No subluxation. No effusion or loose bodies. The articular cartilage is unremark able. The glenohumeral ligaments and joint capsule are unremarkable. Bone Marrow: No fracture, marrow edema or bone lesions. Labrum: The labrum is unremarkable on this nonarthrographic study. Musculature/Rotator Cuff: Supraspinatus and infraspinatus tendons are somewhat thin; however, otherwi se intact. No focal partial or full-thickness fluid-filled gaps. No proximal muscular edema or fatty atrophy. Biceps Tendon: The long head of the biceps tendon and biceps heriberto are intact. Other: The subcutaneous tissues are unremarkable. IMPRESSION: 1. Unipartite undersurface osseous acromion shape. AC joint is moderately osteoarthritic. Trace amou nt of bursal fluid is present. Labrum, capsular structures, and long head biceps appear normal. 2. Some thinning of the supraspinatus and infraspinatus portions of the rotator cuff; however, no samia dence for partial or full-thickness tears. [facility] MUSCULOSKELETAL [facility]IOLOGY SECTION Referring Provider Line: [phone] SITE ID: [id number]
== END 2017-02-22 15:43 | disposition home or self-care (01) ==
LOC: DI 15:42
PROVIDERS: ATTEND Orthopaedic Surgery
DX: M19.012 Primary osteoarthritis, left shoulder (principal)

== ENCOUNTER 2017-02-23 19:18 | Outpatient (CLI) | payer MEDICARE, MEDICAID | END 2017-02-23 23:59 | disposition critical access hospital (66) | LOC: EMS 19:18 | PROVIDERS: ATTEND Surgery | DX: R45.851 Suicidal ideations (principal) | CPT/HCPCS: A0425; A0429 ==

== ENCOUNTER 2017-02-23 19:28 | Emergency (ER) | payer MEDICARE, MEDICAID ==
--- NOTE | 2017-02-23 20:18 | ED Physician Documentation ---
PD HPI MHE - Stated complaint Stated Complaint: SI - History obtained from History obtained from: Patient - History of Present Illness Primary symptom: Suicidal ideation Timing - onset: Last night Pain level now: 0 - Additional information Additional information: frequent [facility] visits for SI, c/o feeling suicidal since last night with plan to jump off [place] bridge. Review of Systems Cardiac: reports: Reviewed and negative Respiratory: reports: Reviewed and negative GI: reports: Reviewed and negative Psychiatric: reports: Depressed, Suicidal PD PAST MEDICAL HISTORY - Past Medical History Cardiovascular: Other Respiratory: COPD, Pneumonia Neuro: TIA, Seizure disorder Endocrine/Autoimmune: Type 2 diabetes GI: GERD, Hiatal hernia HYDRATOR OPERATOR: None : None HEENT: None Psych: Schizophrenia Musculoskeletal: None Derm: None - Past Surgical History Past Surgical History: Yes General: Bowel surgery Ortho: Other /HYDRATOR OPERATOR: 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 HEENT: Cataracts - Present Medications Home Medications: Ambulatory Orders Medication Instructions Recorded Confirmed Verapamil ER [Calan SA] 180 mg PO DAILY 03/25/16 02/15/17 Lamotrigine 25 mg PO DAILY 06/20/16 02/15/17 Olanzapine 10 mg PO BID 06/20/16 02/15/17 Omeprazole [PriLOSEC] 20 mg PO BIDAC 06/20/16 02/15/17 Lorazepam [Ativan] 1 mg ORAL QPM 10/18/16 02/15/17 Albuterol Sulf [Ventolin Hfa 2 puffs INH Q4H PRN 12/25/16 02/15/17 Inhaler] Citalopram Hydrobromide 40 mg PO DAILY 12/25/16 02/15/17 [Citalopram HBr] Divalproex ER [Depakote ER] 1,250 mg PO QPM 12/25/16 02/15/17 Divalproex ER [Depakote ER] 750 mg PO DAILY 12/25/16 02/15/17 Famotidine 20 mg PO DAILY 12/25/16 02/15/17 Lorazepam 0.5 mg PO DAILY 12/25/16 02/15/17 Prazosin HCl [Minipress] 5 mg PO QPM 12/25/16 02/15/17 Rizatriptan Benzoate [Rizatriptan] 10 mg PO ONCE PRN 12/25/16 02/15/17 Thioridazine HCl 50 mg PO BID PRN 12/25/16 02/15/17 Trazodone HCl 100 - 200 mg PO QPM PRN 12/25/16 02/15/17 hydrOXYzine PAMOATE [Vistaril] 50 mg PO BID PRN 12/25/16 02/15/17 Sucralfate 1 gm PO ACHS #90 tablet 01/20/17 02/15/17 Naproxen [Naprosyn] 500 mg PO BID #20 tablet 02/02/17 02/15/17 - Allergies Allergies/Adverse Reactions: Allergies Allergy/AdvReac Type Severity Reaction Status Date / Time azithromycin Allergy Severe Hives Verified 02/15/17 19:33 haloperidol Allergy Severe Anaphylaxis Verified 02/15/17 19:33 Penicillins Allergy Severe Anaphylaxis Verified 02/15/17 19:33 amoxicillin [Amoxicillin] Allergy Intermediate Rash Verified 02/15/17 19:33 grapefruit Allergy Intermediate Rash Verified 02/15/17 19:33 iodine Allergy Intermediate Rash Verified 02/15/17 19:33 Sulfa (Sulfonamide Allergy Intermediate Rash Verified 02/15/17 19:33 Antibiotics) haloperidol lactate * AdvReac Rash Verified 02/15/17 19:33 [From Haldol] - Social History Does the pt smoke?: Yes Smoking Status: Current every day smoker Does the pt drink ETOH?: No Does the pt have substance abuse?: No - Immunizations Immunizations are current?: No Immunizations: TDAP >10years/unknown - POLST Patient has POLST: No PD ED PE NORMAL - Vitals Vital signs reviewed: Yes - General General: Alert and oriented X 3, No acute distress, Well developed/nourished - Cardiac Cardiac: RRR, No murmur - Respiratory Respiratory: No respiratory distress, Clear bilaterally - Derm Derm: Normal color, Warm and dry - Neuro Neuro: Alert and oriented X 3 - Psych Psych: Normal mood. No: Normal affect (flat affect, but this is typical for this patient (base on my numerous previous encounters with this patient)) Results - Vitals Vitals: Vital Signs - 24 hr 02/23/17 19:39 Temperature 36.5 C Heart Rate 73 Respiratory 16 Rate Blood Pressure 123/68 O2 Saturation 94 Oxygen O2 Source [With Activity] Room air O2 Source [Without Activity] Room air O2 Source Room air - Labs Labs: Laboratory Tests 02/23/17 02/23/1702/23/17 20:30 20:30 Unknown WBC 12.1 H RBC 4.56 Hgb 13.7 Hct 41.8 MCV 91.8 MCH 30.1 MCHC 32.8 RDW 17.5 H MPV 10.5 Neut # 5.4 Lymph # 5.0 H [place] # 1.4 H Eos # 0.2 Baso # 0.1 Absolute Nucleated RBC 0.01 Nucleated RBCs 0.1 WBC Morphology 1+ REACTIVE LYMPHS Platelet Estimate NORMAL (130-450,000) Platelet Morphology PLATELET CLUMPING RBC Morph Micro Appear 2+ TARGET CELLS Sodium 138 Potassium 4.2 Chloride 104 Carbon Dioxide 27 Anion Gap 7.0 BUN 13 Creatinine 0.9 Estimated GFR (MDRD) 65 L Glucose 95 Calcium 8.8 Urine Color YELLOW Urine Clarity CLEAR Urine pH 8.5 H Ur Specific [place] 1.015 Urine Protein NEGATIVE Urine Glucose (UA) NEGATIVE Urine Ketones TRACE Urine Occult Blood NEGATIVE Urine Nitrite NEGATIVE Urine Bilirubin NEGATIVE Urine Urobilinogen 0.2 (NORMAL) Ur Leukocyte Esterase NEGATIVE Ur Microscopic Review NOT INDICATED Urine Culture Comments NOT INDICATED Salicylates < 6.0 Urine Opiates Screen POSITIVE H Ur Oxycodone Screen NEGATIVE Urine Methadone Screen NEGATIVE Ur Propoxyphene Screen NEGATIVE Acetaminophen < 10 L Ur Barbiturates Screen NEGATIVE Ur Tricyclics Screen NEGATIVE Ur Phencyclidine Scrn NEGATIVE Ur Amphetamine Screen NEGATIVE U Methamphetamines Scrn NEGATIVE U Benzodiazepines Scrn POSITIVE H Urine Cocaine Screen NEGATIVE U Cannabinoids Screen POSITIVE H PD MEDICAL DECISION MAKING - ED course Complexity details: reviewed results, re-evaluated patient, considered differential, d/w patient ED course: evaluated by CDM[facility] in ED and cleared for d/c Departure - Departure Disposition: 01 Home, Self Care Clinical Impression: Depression Condition: Good Instructions: ED Depression Discharge Date/Time: 02/23/17 22:40
[2017-02-23 20:46] LABS: BILIRUBIN,URINE NEGATIVE (NEGATIVE); PH,URINE 8.5 PH (5.0-7.5)
[2017-02-23 20:50] LABS: UA CHARGE (STRIP ONLY) YES; UR CULTURE IF IND NOT INDICATED
[2017-02-23 20:58] LABS: BUN - BLOOD UREA NITROGEN 13 mg/dL (6-20); CALCIUM 8.8 mg/dL (8.5-10.3); CARBON DIOXIDE - CO2 27 mmol/L (21-32); CHLORIDE 104 mmol/L (101-111); CREATININE 0.9 mg/dL (0.4-1.0); GFR - MDRD 65 (>89); GLUCOSE 95 mg/dL (70-100); POTASSIUM 4.2 mmol/L (3.5-5.0); SALICYLATE < 6.0 mg/dL; SODIUM 138 mmol/L (135-145)
[2017-02-23 21:02] LABS: ACETAMINOPHEN < 10 ug/mL (10-30)
[2017-02-23 21:29] LABS: BASOPHILS # (AUTO) 0.1 10^3/uL (0.0-0.1); BASOPHILS % (AUTO) 0.6 %; EOSINOPHILS # (AUTO) 0.2 10^3/uL (0.0-0.7); EOSINOPHILS % (AUTO) 1.4 %; HCT - HEMATOCRIT 41.8 % (37.0-47.0); HGB - HEMOGLOBIN 13.7 g/dL (12.0-16.0); LYMPHOCYTES % (AUTO) 41.2 %; MEAN CORPUSCULAR HEMOGLOBIN 30.1 pg (27.0-31.0); MEAN CORPUSCULAR HGB CONC 32.8 g/dL (32.0-36.0); MEAN CORPUSCULAR VOLUME 91.8 fL (81.0-99.0); MEAN PLATELET VOLUME 10.5 fL (7.9-10.8); MONOCYTES # (AUTO) 1.4 10^3/uL (0.0-1.0); MONOCYTES % (AUTO) 11.8 %; NEUTROPHILS # (AUTO) 5.4 10^3/uL (1.5-6.6); NUCLEATED RED BLOOD CELLS AUTO 0.1 /100WBC; PLATELET ESTIMATE, MANUAL NORMAL (130-450,000) (NORMAL); PLATELET MORPHOLOGY PLATELET CLUMPING (NORMAL); RED BLOOD COUNT 4.56 10^6/uL (4.20-5.40); RED CELL DISTRIBUTION WIDTH 17.5 % (12.0-15.0); UNCORRECTED WHITE BLOOD COUNT 12.1 x10^3/uL; WHITE BLOOD COUNT 12.1 x10^3/uL (4.8-10.8)
[2017-02-23 21:30] LABS: WBC MORPHOLOGY (MULTIPLE) 1+ REACTIVE LYMPHS (NORMAL)
[2017-02-23 22:33] VITALS: BP 123/68
== END 2017-02-23 22:40 | disposition home or self-care (01) ==
LOC: ED 19:28
DX: F32.9 Major depressive disorder, single episode, unspecified (principal); R45.851 Suicidal ideations; F20.9 Schizophrenia, unspecified; J44.9 Chronic obstructive pulmonary disease, unspecified; Z86.73 Personal history of transient ischemic attack (TIA), and cerebral infarction without residual deficits; E11.9 Type 2 diabetes mellitus without complications; K21.9 Gastro-esophageal reflux disease without esophagitis; F17.200 Nicotine dependence, unspecified, uncomplicated
CPT/HCPCS: 36415; 80048; 80306; 80307; 80329; 81001; 81003; 85025; 87086; 99283; 99284

== ENCOUNTER 2017-03-04 17:57 | Outpatient (CLI) | payer MEDICARE, MEDICAID | END 2017-03-04 17:58 | disposition critical access hospital (66) | LOC: EMS 17:57 | PROVIDERS: ATTEND Surgery | DX: M54.9 Dorsalgia, unspecified (principal); M54.2 Cervicalgia; M25.511 Pain in right shoulder; M25.551 Pain in right hip; W10.8XXA Fall (on) (from) other stairs and steps, initial encounter; Y92.098 Other place in other non-institutional residence as the place of occurrence of the external cause | CPT/HCPCS: A0425; A0427 ==

== ENCOUNTER 2017-03-04 18:18 | Emergency (ER) | payer MEDICARE, MEDICAID ==
--- NOTE | 2017-03-04 18:39 | ED Physician Documentation ---
PD HPI Fall - Stated complaint Stated Complaint: FALL - Chief complaint Chief Complaint: Neuro - History obtained from History obtained from: Patient, EMS - History of Present Illness Mechanism of injury: Tripped Fall distance: Standing position Where injury occurred: Home Timing - onset: How many hours ago (1) Injury(ies) location: Head, Neck, Back, Right Upper Extremity, Left Uppper Extremity, Right Lower Extremity, Left Lower Extremity Pain level max: 8 Pain level now: 8 Quality of pain: Pain, Throbbing, Aching, Dull Associated symptoms: No: LOC, AMS, Amnesia, Seizures, Ear drainage, Nasal drainage, Weakness, Paresthesias, Dyspnea, Nausea / vomiting, Hematemesis, Abdominal distension Symptoms improve with: Rest Worsens with: Movement, Palpation Contributing factors: No: Anticoagulated, Intoxicated - Additional information Additional information: Patient is a 52-year-old female who states that she fell down approximately 9- 10 stairs today. States that they were wooden stairs. Did not lose consciousness. But now has all over body pain. Review of Systems Ten Systems: 10 systems reviewed and negative Constitutional: denies: Fever, Chills Nose: denies: Rhinorrhea / runny nose, Congestion Throat: denies: Sore throat Cardiac: denies: Chest pain / pressure Respiratory: denies: Cough GI: denies: Abdominal Pain, Abdominal Swelling, Nausea, Vomiting, Diarrhea Skin: denies: Rash Neurologic: denies: Seizure, Confused, LOC PD PAST MEDICAL HISTORY - Past Medical History Cardiovascular: Other Respiratory: COPD, Pneumonia Neuro: TIA, Seizure disorder Endocrine/Autoimmune: Type 2 diabetes GI: GERD, Hiatal hernia BREAD RACKER: None : None HEENT: None Psych: Schizophrenia Musculoskeletal: None Derm: None - Past Surgical History Past Surgical History: Yes General: Bowel surgery Ortho: Other /BREAD RACKER: 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 HEENT: Cataracts - Present Medications Home Medications: Ambulatory Orders Medication Instructions Recorded Confirmed Verapamil ER [Calan SA] 180 mg PO DAILY 03/25/16 02/15/17 Lamotrigine 25 mg PO DAILY 06/20/16 02/15/17 Olanzapine 10 mg PO BID 06/20/16 02/15/17 Omeprazole [PriLOSEC] 20 mg PO BIDAC 06/20/16 02/15/17 Lorazepam [Ativan] 1 mg ORAL QPM 10/18/16 02/15/17 Albuterol Sulf [Ventolin Hfa 2 puffs INH Q4H PRN 12/25/16 02/15/17 Inhaler] Citalopram Hydrobromide 40 mg PO DAILY 12/25/16 02/15/17 [Citalopram HBr] Divalproex ER [Depakote ER] 1,250 mg PO QPM 12/25/16 02/15/17 Divalproex ER [Depakote ER] 750 mg PO DAILY 12/25/16 02/15/17 Famotidine 20 mg PO DAILY 12/25/16 02/15/17 Lorazepam 0.5 mg PO DAILY 12/25/16 02/15/17 Prazosin HCl [Minipress] 5 mg PO QPM 12/25/16 02/15/17 Rizatriptan Benzoate [Rizatriptan] 10 mg PO ONCE PRN 12/25/16 02/15/17 Thioridazine HCl 50 mg PO BID PRN 12/25/16 02/15/17 Trazodone HCl 100 - 200 mg PO QPM PRN 12/25/16 02/15/17 hydrOXYzine PAMOATE [Vistaril] 50 mg PO BID PRN 12/25/16 02/15/17 Sucralfate 1 gm PO ACHS #90 tablet 01/20/17 02/15/17 Naproxen [Naprosyn] 500 mg PO BID #20 tablet 02/02/17 02/15/17 Hydrocodone/Acetaminophen 1 - 2 each PO Q6H PRN #10 tablet 03/04/17 [Hydrocodon-Acetaminophen 5-325] - Allergies Allergies/Adverse Reactions: Allergies Allergy/AdvReac Type Severity Reaction Status Date / Time azithromycin Allergy Severe Hives Verified 03/04/17 18:24 haloperidol Allergy Severe Anaphylaxis Verified 03/04/17 18:24 Penicillins Allergy Severe Anaphylaxis Verified 03/04/17 18:24 amoxicillin [Amoxicillin] Allergy Intermediate Rash Verified 03/04/17 18:24 grapefruit Allergy Intermediate Rash Verified 03/04/17 18:24 iodine Allergy Intermediate Rash Verified 03/04/17 18:24 Sulfa (Sulfonamide Allergy Intermediate Rash Verified 03/04/17 18:24 Antibiotics) haloperidol lactate * AdvReac Rash Verified 03/04/17 18:24 [From Haldol] - Social History Does the pt smoke?: Yes Smoking Status: Current every day smoker Does the pt drink ETOH?: No Does the pt have substance abuse?: No - Immunizations Immunizations are current?: No Immunizations: TDAP >10years/unknown - POLST Patient has POLST: No PD ED PE NORMAL - Vitals Vital signs reviewed: Yes - General General: Alert and oriented X 3, No acute distress, Well developed/nourished - HEENT HEENT: Atraumatic, PERRL, Ears normal, Moist mucous membranes - Neck Neck: Supple, no meningeal sign, Other (Diffuse tender palpation over the cervical spine) - Cardiac Cardiac: RRR, Strong equal pulses - Respiratory Respiratory: No respiratory distress, Clear bilaterally - Abdomen Abdomen: Soft, Non tender, Non distended - Back Back: Other (Diffuse tenderness to palpation over the thoracic and lumbar spines ) - Derm Derm: Warm and dry - Extremities Extremities: No deformity, Other (Multiple abrasions to the right forearm. Tenderness to palpation over the bilateral clavicles and shoulders.) - Neuro Neuro: Alert and oriented X 3 - Psych Psych: Normal mood, Normal affect Results - Vitals Vitals: Vital Signs - 24 hr 03/04/17 03/04/17 03/04/17 18:21 20:11 22:21 Temperature 37.4 C 37 C Heart Rate 75 66 70 Respiratory 14 18 18 Rate Blood Pressure 127/70 135/90 H 130/88 H O2 Saturation 100 95 94 Oxygen O2 Source [With Activity] Room air O2 Source [Without Activity] Room air O2 Source Room air - Rads (name of study) CT head Radiology: Prelim report reviewed, EMP read contemporaneously, See rad report ( No acute intracranial abnormality. ) CT cervical spine Radiology: Prelim report reviewed, EMP read contemporaneously, See rad report ( No cervical spine fracture or malalignment. C5-C6 disk related degenerative changes resulting in moderate right neural foraminal stenosis. ) T spine xray Radiology: Prelim report reviewed, EMP read contemporaneously, See rad report ( Thoracic spondylosis without evidence of acute osseous abnormality. ) L spine xray Radiology: Prelim report reviewed, EMP read contemporaneously, See rad report ( Mild thoracolumbar spondylosis. No evidence of acute osseous abnormality. ) B shoulder xray Radiology: Prelim report reviewed, EMP read contemporaneously, See rad report ( No evidence of acute osseous abnormality. Mild bilateral acromioclavicular joint osteoarthritis. ) PD MEDICAL DECISION MAKING - ED course Complexity details: reviewed results, re-evaluated patient, considered differential, d/w patient, d/w family ED course: Patient is a 52-year-old female who tripped and fell down the stairs today. Does have abrasions to the right forearm. Given Toradol and pain did improve, but still having pain, therefore was given 2 Vicodin. Her pain seemed to resolve after this. She is ambulating well. We will have her follow-up with her doctor for further evaluation and care. No acute findings on radiographs. Patient counseled regarding signs and symptoms for which I believe and urgent re -evaluation would be necessary. Patient with good understanding of and agreement to plan and is comfortable going home at this time This document was made in part using voice recognition software. While efforts are made to proofread this document, sound alike and grammatical errors may occur. Departure - Departure Disposition: 01 Home, Self Care Clinical Impression: Fall Qualifiers: Encounter type: initial encounter Qualified Code(s): W19.XXXA - Unspecified fall, initial encounter Shoulder pain, bilateral Qualifiers: Chronicity: acute Qualified Code(s): M25.511 - Pain in right shoulder; M25.512 - Pain in left shoulder Back pain Qualifiers: Back pain location: back pain in unspecified location Chronicity: acute Back pain laterality: bilateral Qualified Code(s): M54.9 - Dorsalgia, unspecified Condition: Good Instructions: ED Shoulder Pain UKO, ED Mechanical Fall Follow-Up: your,doctor in 3 days [Other] Prescriptions: Hydrocodone/Acetaminophen [Hydrocodon-Acetaminophen 5-325] 1 - 2 each PO Q6H PRN #10 tablet PRN Reason: pain Comments: You need to follow up with your doctor in 3 days for re-evaluation. Do not drink alcohol or drive while on narcotic pain medicine. Note that many narcotic pain relievers also contain tylenol/acetaminophen. Please ensure that your total dose of acetaminophen from all sources does not exceed 3 grams (3000mg) per day. You may constipated on this medication, take a stool softener such as "Colace" twice a day while you are on it. Also recommend a [id number]-[id number] laxative such as senna or MiraLAX any day that you do not have a bowel movement. If you received narcotic pain medication in the emergency department, do not drive or operate machinery for the next 24 hours. Discharge Date/Time: 03/04/17 22:22
[2017-03-04] MEDS ORDERED: KETOROLAC 60 MG/2 ML VIAL IM STA (18:41)
[2017-03-04] MEDS ORDERED: KETOROLAC 60 MG/2 ML VIAL ONE (18:45)
--- NOTE | 2017-03-04 19:52 | CT Preliminary Report ---
Exam: CT Head W/O IMPRESSION: No acute intracranial abnormality. [facility] SITE ID: [id number]
--- NOTE | 2017-03-04 19:55 | CT Report ---
EXAM: CT HEAD EXAM DATE: 03/04/2017 07:29 PM. CLINICAL HISTORY: Fall down stairs, head pain. COMPARISON: 10/24/2015 CT head. TECHNIQUE: Multiaxial CT images were obtained from the foramen magnum to the vertex. IV contrast: Non e. Reformats: Coronal. In accordance with CT protocol optimization, one or more of the following dose reduction techniques w ere utilized for this exam: automated exposure control, adjustment of mA and/or KV based on patient s ize, or use of iterative reconstructive technique. FINDINGS: Parenchyma: No intraparenchymal hemorrhage. No evidence of mass, midline shift, or CT findings of inf arction. Lora-white differentiation is distinct. Extraaxial Spaces: Normal for age. No subdural or epidural collections identified. Ventricles: Normal in size and position. Sinuses: Ethmoid sinus mucosal thickening. Bones: No evidence of fracture or calvarial defect. Other: None. IMPRESSION: No acute intracranial abnormality. [facility] Referring Provider Line: [phone] SITE ID: [id number]
--- NOTE | 2017-03-04 20:00 | CT Preliminary Report ---
Exam: CT Cervical Spine W/O IMPRESSION: 1. No cervical spine fracture or malalignment. 2. C5-C6 disk related degenerative changes resulting in moderate right neural foraminal stenosis. [facility] SITE ID: [id number]
--- NOTE | 2017-03-04 20:03 | CT Report ---
EXAM: CT CERVICAL SPINE WITHOUT CONTRAST DATE: 03/04/2017 07:19 PM HISTORY: Fall down stairs, neck pain. COMPARISONS: None. TECHNIQUE: Thin-section axial images were acquired of the cervical spine without contrast. Post-proce ssing: Coronal and sagittal reformats. Other: None. In accordance with CT protocol optimization, one or more of the following dose reduction techniques w ere utilized for this exam: automated exposure control, adjustment of mA and/or KV based on patient s ize, or use of iterative reconstructive technique. FINDINGS: Alignment: Normal. No scoliosis or spondylolisthesis. Bones: No fracture or bone lesion. Interspace Levels/Facets: Degenerative bulging disk osteophyte complex at C5-C6 resulting in moderate right neural foraminal stenosis. Disk bulging also seen at C3-C4 and C6-C7 with no significant nagi inal stenosis. Musculature: Normal. No fatty atrophy. Other: Centrilobular emphysema seen at the lung apices. IMPRESSION: 1. No cervical spine fracture or malalignment. 2. C5-C6 disk related degenerative changes resulting in moderate right neural foraminal stenosis. [facility] Referring Provider Line: [phone] SITE ID: [id number]
--- NOTE | 2017-03-04 20:20 | XRAY Preliminary Report ---
Exam: XR Shoulder 3 View BILAT IMPRESSION: 1. No evidence of acute osseous abnormality. 2. Mild bilateral acromioclavicular joint osteoarthritis. [facility] SITE ID: [id number]
--- NOTE | 2017-03-04 20:21 | XRAY Preliminary Report ---
Exam: XR Thoracic Spine 2 View IMPRESSION: Thoracic spondylosis without evidence of acute osseous abnormality. [facility] SITE ID: [id number]
--- NOTE | 2017-03-04 20:22 | XRAY Preliminary Report ---
Exam: XR Lumbar Spine 2 View IMPRESSION: 1. Mild thoracolumbar spondylosis. 2. No evidence of acute osseous abnormality. [facility] SITE ID: [id number]
--- NOTE | 2017-03-04 20:22 | XRAY Report ---
Bilateral Shoulder Radiography EXAM DATE: 03/04/2017 08:00 PM. CLINICAL HISTORY: Fall down stairs, B shoulder pain. COMPARISON: None. TECHNIQUE: 3 views each. FINDINGS: Right: Bones: Normal. No fracture or bone lesion. Joints: Normal alignment. Mild proliferative changes are noted in the acromioclavicular joint. Soft tissues: The visualized hemithorax is unremarkable. No soft tissue swelling. Left: Bones: Normal. No fracture or bone lesion. Joints: Normal alignment. Mild proliferative changes are noted in the acromioclavicular joint. Soft tissues: The visualized hemithorax is unremarkable. No soft tissue swelling. IMPRESSION: 1. No evidence of acute osseous abnormality. 2. Mild bilateral acromioclavicular joint osteoarthritis. [facility] Referring Provider Line: [phone] SITE ID: [id number]
--- NOTE | 2017-03-04 20:24 | XRAY Report ---
EXAM: THORACIC SPINE RADIOGRAPHY EXAM DATE: 03/04/2017 08:00 PM. CLINICAL HISTORY: Fall down stairs, back pain. COMPARISON: None. TECHNIQUE: 2 views. FINDINGS: Alignment: Normal. No spondylolisthesis or scoliosis. Bones: No fractures or bone lesions. Disks: Disk spaces are preserved. Endplate degenerative changes and marginal spurring are seen throug hout the thoracic spine. Soft Tissues: Normal. The visualized lungs and cardiomediastinal silhouette are normal. IMPRESSION: Thoracic spondylosis without evidence of acute osseous abnormality. [facility] Referring Provider Line: [phone] SITE ID: [id number]
--- NOTE | 2017-03-04 20:25 | XRAY Report ---
EXAM: LUMBOSACRAL SPINE RADIOGRAPHY EXAM DATE: 03/04/2017 07:58 PM. CLINICAL HISTORY: Fall down stairs, back pain. COMPARISONS: None. TECHNIQUE: 2 views. FINDINGS: Alignment: Normal. No spondylolisthesis or scoliosis. Bones: Five [id number] lumbar vertebral bodies are present. No fractures or bone lesions. Disks: Mild anterior marginal spurring is seen at L1 S2 and L2-L3 as well as several levels in the lo wer thoracic spine. Facets: No degenerative changes. Sacroiliac Joints: Unremarkable. Soft Tissues: Normal. The visualized bowel gas pattern is normal. IMPRESSION: 1. Mild thoracolumbar spondylosis. 2. No evidence of acute osseous abnormality. [facility] Referring Provider Line: [phone] SITE ID: [id number]
[2017-03-04] MEDS ORDERED: HYDROcod/ACETAM 5/325 MG TABLET PO STA (21:41)
[2017-03-04] MEDS ORDERED: HYDROcod/ACETAM 5/325 MG TABLET ONE (21:44)
[2017-03-04 22:23] VITALS: BP 130/88
== END 2017-03-04 22:22 | disposition home or self-care (01) ==
LOC: EDUNIT# → ED 18:18
DX: M25.512 Pain in left shoulder (principal); M25.511 Pain in right shoulder; M54.6 Pain in thoracic spine; M54.5 Low back pain; S50.811A Abrasion of right forearm, initial encounter; W10.8XXA Fall (on) (from) other stairs and steps, initial encounter; Y92.009 Unspecified place in unspecified non-institutional (private) residence as the place of occurrence of the external cause; E11.9 Type 2 diabetes mellitus without complications; F17.200 Nicotine dependence, unspecified, uncomplicated; Z86.73 Personal history of transient ischemic attack (TIA), and cerebral infarction without residual deficits
CPT/HCPCS: 51798; 70450; 72070; 72100; 72125; 96372; 99283; 99284

== ENCOUNTER 2017-03-19 18:46 | Outpatient (CLI) | payer MEDICARE, MEDICAID | END 2017-03-19 18:47 | disposition critical access hospital (66) | LOC: EMS 18:46 | PROVIDERS: ATTEND Surgery | DX: R06.00 Dyspnea, unspecified (principal) | CPT/HCPCS: A0425; A0427 ==

== ENCOUNTER 2017-03-19 19:07 | Emergency (ER) | payer MEDICARE, MEDICAID ==
[2017-03-19 19:27] LABS: BILIRUBIN,URINE NEGATIVE (NEGATIVE)
[2017-03-19 19:28] LABS: UA CHARGE (STRIP ONLY) YES; UR CULTURE IF IND NOT INDICATED
[2017-03-19 19:48] LABS: BASOPHILS # (AUTO) 0.2 10^3/uL (0.0-0.1); EOSINOPHILS # (AUTO) 0.1 10^3/uL (0.0-0.7); EOSINOPHILS % (AUTO) 0.5 %; HCT - HEMATOCRIT 42.3 % (37.0-47.0); HGB - HEMOGLOBIN 14.1 g/dL (12.0-16.0); LYMPHOCYTES % (AUTO) 34.3 %; MEAN CORPUSCULAR HEMOGLOBIN 30.2 pg (27.0-31.0); MEAN CORPUSCULAR HGB CONC 33.4 g/dL (32.0-36.0); MEAN CORPUSCULAR VOLUME 90.3 fL (81.0-99.0); MEAN PLATELET VOLUME 9.3 fL (7.9-10.8); MONOCYTES # (AUTO) 2.9 10^3/uL (0.0-1.0); MONOCYTES % (AUTO) 14.1 %; NEUTROPHILS # (AUTO) 10.3 10^3/uL (1.5-6.6); NEUTROPHILS % (AUTO) 50.1 %; NUCLEATED RED BLOOD CELLS AUTO 0.1 /100WBC; RED BLOOD COUNT 4.68 10^6/uL (4.20-5.40); RED CELL DISTRIBUTION WIDTH 17.5 % (12.0-15.0); UNCORRECTED WHITE BLOOD COUNT 20.5 x10^3/uL; WHITE BLOOD COUNT 20.5 x10^3/uL (4.8-10.8)
[2017-03-19 20:10] LABS: BILIRUBIN,TOTAL 0.4 mg/dL (0.2-1.0); CALCIUM 9.5 mg/dL (8.5-10.3); CREATININE 0.9 mg/dL (0.4-1.0); POTASSIUM 3.5 mmol/L (3.5-5.0); TOTAL PROTEIN 6.9 g/dL (6.7-8.2)
[2017-03-19] MEDS ORDERED: SODIUM CHLORIDE 0.9% 1,000 ML IV ONE ×2 (20:17→20:30)
--- NOTE | 2017-03-19 20:17 | ED Physician Documentation ---
PD HPI URI - Stated complaint Stated Complaint: SOA - Chief complaint Chief Complaint: General - History obtained from History obtained from: Patient, EMS - History of Present Illness Timing - onset: How many days ago (3) Timing duration: Days (3) Timing details: Gradual onset Pain level max: 0 Pain level now: 0 Associated symptoms: Nasal congestion, Rhinorrhea, Productive cough, NVD (4 BM today) Contributing factors: Sick contact, COPD / asthma Improves by: MDI/nebulizer Worsened by: Activity Similar symptoms before: Diagnosis (pneumonia) - Additional information Additional information: states also has RUQ abd pain x 1 week. Wheezing B. Had nebulizer en route. Review of Systems Ten Systems: 10 systems reviewed and negative Constitutional: denies: Fever, Chills Nose: reports: Rhinorrhea / runny nose, Congestion Throat: denies: Sore throat Respiratory: reports: Cough, Wheezing GI: reports: Nausea, Vomiting, Diarrhea. 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 : None HEENT: None Psych: Schizophrenia Musculoskeletal: None Derm: None - Past Surgical History Past Surgical History: Yes General: Bowel surgery Ortho: Other /MAMMOGRAPHY SUPERVISOR: 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 HEENT: Cataracts - Present Medications Home Medications: Ambulatory Orders Medication Instructions Recorded Confirmed Verapamil ER [Calan SA] 180 mg PO DAILY 03/25/16 02/15/17 Lamotrigine 25 mg PO DAILY 06/20/16 02/15/17 Olanzapine 10 mg PO BID 06/20/16 02/15/17 Omeprazole [PriLOSEC] 20 mg PO BIDAC 06/20/16 02/15/17 Lorazepam [Ativan] 1 mg ORAL QPM 10/18/16 02/15/17 Albuterol Sulf [Ventolin Hfa 2 puffs INH Q4H PRN 12/25/16 02/15/17 Inhaler] Citalopram Hydrobromide 40 mg PO DAILY 12/25/16 02/15/17 [Citalopram HBr] Divalproex ER [Depakote ER] 1,250 mg PO QPM 12/25/16 02/15/17 Divalproex ER [Depakote ER] 750 mg PO DAILY 12/25/16 02/15/17 Famotidine 20 mg PO DAILY 12/25/16 02/15/17 Lorazepam 0.5 mg PO DAILY 12/25/16 02/15/17 Prazosin HCl [Minipress] 5 mg PO QPM 12/25/16 02/15/17 Rizatriptan Benzoate [Rizatriptan] 10 mg PO ONCE PRN 12/25/16 02/15/17 Thioridazine HCl 50 mg PO BID PRN 12/25/16 02/15/17 Trazodone HCl 100 - 200 mg PO QPM PRN 12/25/16 02/15/17 hydrOXYzine PAMOATE [Vistaril] 50 mg PO BID PRN 12/25/16 02/15/17 Sucralfate 1 gm PO ACHS #90 tablet 01/20/17 02/15/17 Naproxen [Naprosyn] 500 mg PO BID #20 tablet 02/02/17 02/15/17 Hydrocodone/Acetaminophen 1 - 2 each PO Q6H PRN #10 tablet 03/04/17 [Hydrocodon-Acetaminophen 5-325] Prednisone 40 mg PO DAILY #10 tablet 03/19/17 Promethazine [Phenergan] 25 mg PO Q6H PRN #10 tab 03/19/17 - Allergies Allergies/Adverse Reactions: Allergies Allergy/AdvReac Type Severity Reaction Status Date / Time azithromycin Allergy Severe Hives Verified 03/04/17 18:24 haloperidol Allergy Severe Anaphylaxis Verified 03/04/17 18:24 Penicillins Allergy Severe Anaphylaxis Verified 03/04/17 18:24 amoxicillin [Amoxicillin] Allergy Intermediate Rash Verified 03/04/17 18:24 grapefruit Allergy Intermediate Rash Verified 03/04/17 18:24 iodine Allergy Intermediate Rash Verified 03/04/17 18:24 Sulfa (Sulfonamide Allergy Intermediate Rash Verified 03/04/17 18:24 Antibiotics) haloperidol lactate * AdvReac Rash Verified 03/04/17 18:24 [From Haldol] - Social History Does the pt smoke?: Yes Smoking Status: Current every day smoker Does the pt drink ETOH?: No Does the pt have substance abuse?: No - Immunizations Immunizations are current?: No Immunizations: TDAP >10years/unknown - POLST Patient has POLST: No PD ED PE NORMAL - Vitals Vital signs reviewed: Yes - General General: Alert and oriented X 3, No acute distress - Neck Neck: Supple, no meningeal sign - Cardiac Cardiac: RRR - Respiratory Respiratory: No respiratory distress, Other (wheezing B) - Abdomen Abdomen: Soft, Non distended, Other (mild TTP LLQ. no peritoneal signs) - Back Back: No spinal TTP - Derm Derm: Warm and dry, No rash - Neuro Neuro: Alert and oriented X 3 - Psych Psych: Normal mood, Normal affect Results - Vitals Vitals: Vital Signs - 24 hr 03/19/17 03/19/17 03/19/17 19:11 20:06 20:40 Temperature 37.4 C Heart Rate 83 89 83 Respiratory 15 20 18 Rate Blood Pressure 125/80 128/76 125/68 O2 Saturation 92 98 98 03/19/17 03/19/17 03/19/17 20:53 21:13 22:50 Temperature Heart Rate 76 75 68 Respiratory 20 18 18 Rate Blood Pressure 130/62 114/70 O2 Saturation 96 98 Oxygen O2 Source [With Activity] Room air O2 Source [Without Activity] Room air O2 Source Room air - Labs Labs: Laboratory Tests 03/19/17 03/19/17 03/19/17 19:20 19:42 19:42 WBC 20.5 H RBC 4.68 Hgb 14.1 Hct 42.3 MCV 90.3 MCH 30.2 MCHC 33.4 RDW 17.5 H Plt Count 231 MPV 9.3 Neut # 10.3 H Lymph # 7.0 H [place] # 2.9 H Eos # 0.1 Baso # 0.2 H Absolute Nucleated RBC 0.01 Nucleated RBCs 0.1 WBC Morphology 1+ SMUDGE CELLS Platelet Estimate NORMAL (130-450,000) Platelet Morphology NORMAL APPEARANCE RBC Morph Micro Appear 1+ POLYCHROMASIA Sodium 139 Potassium 3.5 Chloride 103 Carbon Dioxide 25 Anion Gap 11.0 BUN 15 Creatinine 0.9 Estimated GFR (MDRD) 65 L Glucose 122 H Calcium 9.5 Total Bilirubin 0.4 AST 25 ALT 19 Alkaline Phosphatase 59 Total Protein 6.9 Albumin 3.4 Globulin 3.5 Albumin/Globulin Ratio 1.0 Lipase 12 L Urine Color YELLOW Urine Clarity CLEAR Urine pH 6.0 Ur Specific [place] 1.010 Urine Protein NEGATIVE Urine Glucose (UA) NEGATIVE Urine Ketones NEGATIVE Urine Occult Blood NEGATIVE Urine Nitrite NEGATIVE Urine Bilirubin NEGATIVE Urine Urobilinogen 0.2 (NORMAL) Ur Leukocyte Esterase NEGATIVE Ur Microscopic Review NOT INDICATED Urine Culture Comments NOT INDICATED - Rads (name of study) cxr Radiology: Prelim report reviewed, EMP read contemporaneously, See rad report ( Normal 2-view chest radiography. ) CT abd/pelvis Radiology: Prelim report reviewed, EMP read contemporaneously, See rad report ( No acute abdominal or pelvic abnormality. Status post cholecystectomy, splenectomy, appendectomy, and hysterectomy. ) PD MEDICAL DECISION MAKING - ED course Complexity details: reviewed results, re-evaluated patient, considered differential, d/w patient ED course: Patient is a 52-year-old female who presents to the emergency department with what appears to be a viral URI. She states that she has been on prednisone for the past week, stopped today. No fevers. No hypoxia. Did have some abdominal tenderness, CT scan is negative. We will continue supportive care at home and follow-up with her doctor. Patient improved with nebulizer treatments here. Patient counseled regarding signs and symptoms for which I believe and urgent re -evaluation would be necessary. Patient with good understanding of and agreement to plan and is comfortable going home at this time This document was made in part using voice recognition software. While efforts are made to proofread this document, sound alike and grammatical errors may occur. Departure - Departure Disposition: 01 Home, Self Care Clinical Impression: Viral syndrome Condition: Good Instructions: ED Viral Syndrome Follow-Up: your,doctor in 3 days [Other] Prescriptions: Promethazine [Phenergan] 25 mg PO Q6H PRN #10 tab PRN Reason: Nausea / Vomiting Prednisone 40 mg PO DAILY #10 tablet Comments: Return if you worsen. Your xray and CT scan are normal today. Discharge Date/Time: 03/19/17 22:50
[2017-03-19] MEDS ORDERED: ACETAMINOPHEN 1,000 MG/100 ML 100 ML IV STA (20:25)
[2017-03-19] MEDS ORDERED: KETOROLAC 60 MG/2 ML VIAL IVP STA (20:25)
[2017-03-19] MEDS ORDERED: KETOROLAC 30 MG/ML VIAL ONE (20:30)
[2017-03-19] MEDS ORDERED: ACETAMINOPHEN 1,000 MG/100 ML 100 ML IV ONE (20:30)
--- NOTE | 2017-03-19 20:31 | XRAY Preliminary Report ---
Exam: XR Chest 2 View PA/LAT IMPRESSION: Normal 2-view chest radiography. [facility] SITE ID: [id number]
--- NOTE | 2017-03-19 20:33 | XRAY Report ---
EXAM: CHEST RADIOGRAPHY EXAM DATE: 03/19/2017 08:08 PM. CLINICAL HISTORY: Cough. COMPARISON: 12/24/2016. TECHNIQUE: 2 views. FINDINGS: Lungs/Pleura: No focal opacities evident. No pleural effusion. No pneumothorax. Normal volumes. Mediastinum: Heart and mediastinal contours are unremarkable. Other: No compression fractures. IMPRESSION: Normal 2-view chest radiography. [facility] Referring Provider Line: [phone] SITE ID: [id number]
[2017-03-19 20:56] LABS: PLATELET ESTIMATE, MANUAL NORMAL (130-450,000) (NORMAL); PLATELET MORPHOLOGY NORMAL APPEARANCE (NORMAL)
[2017-03-19] MEDS ORDERED: IPRATROPIUM/ALBUTEROL 3 ML NEB INH STA (20:58)
[2017-03-19] MEDS ORDERED: IPRATROPIUM/ALBUTEROL 3 ML NEB INH ONE (21:06)
[2017-03-19] MEDS ORDERED: IOPAMIDOL-300 100 ML VIAL IVP ONE (21:49)
--- NOTE | 2017-03-19 22:32 | CT Preliminary Report ---
Exam: CT Abdomen/Pelvis W/ IMPRESSION: 1. No acute abdominal or pelvic abnormality. 2. Status post cholecystectomy, splenectomy, appendectomy, and hysterectomy. [facility] SITE ID: [id number]
--- NOTE | 2017-03-19 22:34 | CT Report ---
EXAM: CT ABDOMEN AND PELVIS EXAM DATE: 03/19/2017 09:45 PM. CLINICAL HISTORY: Vomiting, diarrhea, bilateral lower quadrant abdominal pain. COMPARISONS: [id number] TECHNIQUE: Routine helical CT imaging was performed through the abdomen and pelvis. IV contrast: 100 cc Isovue-300. Enteric contrast: No. Reconstructions: Coronal and sagittal. In accordance with CT protocol optimization, one or more of the following dose reduction techniques w ere utilized for this exam: automated exposure control, adjustment of mA and/or KV based on patient s ize, or use of iterative reconstructive technique. FINDINGS: ABDOMEN: Liver: No significant abnormality. Stomach/Distal Esophagus: No significant abnormality. Gallbladder: Surgically absent. Bile Ducts: No significant abnormality. Pancreas: No significant abnormality. Spleen: Surgically absent. Kidneys: No solid appearing lesion. No hydronephrosis. Bilateral extrarenal pelves. Adrenals: No significant abnormality. Bowel: No obstruction. Average fecal residual. Appendix: Surgically absent Lymph Nodes: No pathologically enlarged nodes. Vasculature: Normal caliber aorta. Fluid: No significant free fluid. Abdominal Wall: No significant abnormality. Other: No significant abnormality. PELVIS: Uterus and Ovaries: Surgically absent uterus. Ovaries are not visualized, possibly surgically absent as well. Bladder: No significant abnormality. Lymph Nodes: No pathologically enlarged nodes. Fluid: No significant free fluid. Other: None. BONES: No suspicious bony lesions. LOWER CHEST: No significant consolidation or effusion. Mild bilateral lower lobe dependent atelectasi s. IMPRESSION: 1. No acute abdominal or pelvic abnormality. 2. Status post cholecystectomy, splenectomy, appendectomy, and hysterectomy. [facility] Referring Provider Line: [phone] SITE ID: [id number]
[2017-03-19 22:51] VITALS: BP 114/70
== END 2017-03-19 22:50 | disposition home or self-care (01) ==
LOC: EDUNIT# → ED 19:07
DX: B34.9 Viral infection, unspecified (principal); E11.9 Type 2 diabetes mellitus without complications; Z86.73 Personal history of transient ischemic attack (TIA), and cerebral infarction without residual deficits; F17.200 Nicotine dependence, unspecified, uncomplicated
CPT/HCPCS: 36415; 71020; 74177; 80053; 81003; 83690; 85025; 94640; 96374; 96375; 99284; J0131; J7620; Q9967; 81001; 87086

== ENCOUNTER 2017-03-22 17:42 | Outpatient (CLI) | payer MEDICARE, MEDICAID | END 2017-03-22 17:43 | disposition critical access hospital (66) | LOC: EMS 17:42 | PROVIDERS: ATTEND Surgery | DX: R45.851 Suicidal ideations (principal) | CPT/HCPCS: A0425; A0429 ==

== ENCOUNTER 2017-03-22 18:05 | Emergency (ER) | payer MEDICARE, MEDICAID ==
[2017-03-22 19:15] LABS: BASOPHILS # (AUTO) 0.2 10^3/uL (0.0-0.1); BASOPHILS % (AUTO) 1.3 %; EOSINOPHILS # (AUTO) 0.2 10^3/uL (0.0-0.7); EOSINOPHILS % (AUTO) 1.3 %; HCT - HEMATOCRIT 43.2 % (37.0-47.0); HGB - HEMOGLOBIN 14.1 g/dL (12.0-16.0); LYMPHOCYTES # (AUTO) 4.2 10^3/uL (1.5-3.5); LYMPHOCYTES % (AUTO) 34.1 %; MEAN CORPUSCULAR HEMOGLOBIN 29.9 pg (27.0-31.0); MEAN CORPUSCULAR HGB CONC 32.7 g/dL (32.0-36.0); MEAN CORPUSCULAR VOLUME 91.3 fL (81.0-99.0); MEAN PLATELET VOLUME 9.9 fL (7.9-10.8); MONOCYTES # (AUTO) 1.6 10^3/uL (0.0-1.0); MONOCYTES % (AUTO) 13.3 %; NEUTROPHILS # (AUTO) 6.2 10^3/uL (1.5-6.6); NUCLEATED RED BLOOD CELLS AUTO 0.1 /100WBC; RED BLOOD COUNT 4.73 10^6/uL (4.20-5.40); RED CELL DISTRIBUTION WIDTH 17.7 % (12.0-15.0); UNCORRECTED WHITE BLOOD COUNT 12.4 x10^3/uL; WHITE BLOOD COUNT 12.4 x10^3/uL (4.8-10.8)
[2017-03-22 19:24] LABS: BILIRUBIN,URINE NEGATIVE (NEGATIVE)
[2017-03-22 19:26] LABS: UA CHARGE (STRIP ONLY) YES; UR CULTURE IF IND NOT INDICATED
[2017-03-22 19:30] LABS: ALBUMIN/GLOBULIN RATIO 0.9 (1.0-2.2); BILIRUBIN,TOTAL 0.3 mg/dL (0.2-1.0); BUN - BLOOD UREA NITROGEN 17 mg/dL (6-20); CARBON DIOXIDE - CO2 25 mmol/L (21-32); CHLORIDE 106 mmol/L (101-111); CREATININE 0.9 mg/dL (0.4-1.0); GFR - MDRD 65 (>89); GLUCOSE 134 mg/dL (70-100); LIPASE 10 U/L (22-51); POTASSIUM 4.7 mmol/L (3.5-5.0); SODIUM 138 mmol/L (135-145); TOTAL PROTEIN 7.1 g/dL (6.7-8.2)
[2017-03-22 19:37] LABS: PLATELET ESTIMATE, MANUAL NORMAL (130-450,000) (NORMAL); PLATELET MORPHOLOGY RARE GIANT PLATELETS (NORMAL)
[2017-03-22 19:38] LABS: WBC MORPHOLOGY (MULTIPLE) NORMAL APPEARANCE (NORMAL)
[2017-03-22] MEDS ORDERED: LORazepam 0.5 MG TABLET PO STA (19:55)
[2017-03-22] MEDS ORDERED: LORazepam 0.5 MG TABLET ONE (20:03)
--- NOTE | 2017-03-22 22:45 | ED Physician Documentation ---
History of Present Illness - Stated complaint Stated Complaint: SI - Chief complaint Chief Complaint: MHE - History obtained from History obtained from: Patient - Additonal information Additional information: This patient is a 52-year-old female with a history of seizure disorder, schizophrenia, type 2 diabetes GERD and distant history of a TIA. She currently is a resident at a [facility] care facility called [facility]. 1 of the residents at the facility. The patient saying that she wanted to harm her self and subsequently police were called and brought the patient in for evaluation. They did place a hold on her apparently. The patient says that she was thinking about trying to harm her self by taking her pills. She has not done so tonight but does have a history of doing so in the past. She does not really say that anything is wrong with her but just says repeatedly that I' ve had it up to here.There is no complaints of any medical issues such as fever , chills, nausea, vomiting, constipation or diarrhea. She says she does not sleep much otherwise she has been doing well. Review of systems: For pertinent positive and negatives in the review of systems please see history of present illness. Otherwise all other systems have been reviewed and are negative. Dragon disclaimer: Parts of this medical record were created using voice recognition technology. Because of the inherent limitations of this system occasional same sounding word substitutions do occur and persist despite proofreading. Please read the document for context. Review of Systems Ten Systems: 10 systems reviewed and negative Constitutional: denies: Fever, Chills, Myalgias Cardiac: denies: Chest pain / pressure, Palpitations Respiratory: denies: Dyspnea, Cough GI: denies: Abdominal Pain, Abdominal Swelling, Nausea, Vomiting : denies: Dysuria, Frequency, Hesitancy Neurologic: denies: Generalized weakness Psychiatric: reports: Depressed, Suicidal, Insomnia. 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: 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 HEENT: Cataracts - Present Medications Home Medications: Ambulatory Orders Medication Instructions Recorded Confirmed Verapamil ER [Calan SA] 180 mg PO DAILY 07/16/16 06/08/17 Lamotrigine 75 mg PO DAILY 06/20/16 02/15/17 Olanzapine 10 mg PO BID 06/20/16 02/15/17 Omeprazole [PriLOSEC] 20 mg PO BIDAC 06/20/16 02/15/17 Albuterol Sulf [Ventolin Hfa 2 puffs INH Q4H PRN 12/25/16 02/15/17 Inhaler] Divalproex ER [Depakote ER] 1,250 mg PO QPM 12/25/16 02/15/17 Divalproex ER [Depakote ER] 750 mg PO DAILY 12/25/16 02/15/17 Famotidine 20 mg PO DAILY 12/25/16 02/15/17 Lorazepam 0.5 mg PO DAILY 12/25/16 02/15/17 Prazosin HCl [Minipress] 5 mg PO QPM 12/25/16 02/15/17 Rizatriptan Benzoate [Rizatriptan] 10 mg PO ONCE PRN 12/25/16 02/15/17 Thioridazine HCl 50 mg PO BID PRN 12/25/16 02/15/17 Trazodone HCl 100 - 200 mg PO QPM PRN 12/25/16 02/15/17 hydrOXYzine PAMOATE [Vistaril] 50 mg PO BID PRN 12/25/16 02/15/17 Sucralfate 1 gm PO ACHS #90 tablet 01/20/17 02/15/17 Promethazine [Phenergan] 25 mg PO Q6H PRN #10 tab 03/19/17 - Allergies Allergies/Adverse Reactions: Allergies Allergy/AdvReac Type Severity Reaction Status Date / Time azithromycin Allergy Severe Hives Verified 03/04/17 18:24 haloperidol Allergy Severe Anaphylaxis Verified 03/04/17 18:24 Penicillins Allergy Severe Anaphylaxis Verified 03/04/17 18:24 amoxicillin [Amoxicillin] Allergy Intermediate Rash Verified 03/04/17 18:24 grapefruit Allergy Intermediate Rash Verified 03/04/17 18:24 iodine Allergy Intermediate Rash Verified 03/04/17 18:24 Sulfa (Sulfonamide Allergy Intermediate Rash Verified 03/04/17 18:24 Antibiotics) haloperidol lactate * AdvReac Rash Verified 06/25/17 18:24 [From Haldol] - Social History Does the pt smoke?: Yes Smoking Status: Current every day smoker Does the pt drink ETOH?: No Does the pt have substance abuse?: No - Immunizations Immunizations are current?: No Immunizations: TDAP >10years/unknown - POLST Patient has POLST: No PD ED PE NORMAL - General General: Alert and oriented X 3, Well developed/nourished, Other - HEENT HEENT: Atraumatic, PERRL, EOMI, Other - Neck Neck: No bony TTP - Cardiac Cardiac: RRR, No murmur, No gallop, No rub - Respiratory Respiratory: No respiratory distress, Clear bilaterally - Abdomen Abdomen: Soft, Non tender, Non distended - Derm Derm: Normal color, Warm and dry - Extremities Extremities: No deformity, No tenderness to palpate, Normal ROM s pain, No edema , No calf tenderness / cord, Other Results - Vitals Vitals: Vital Signs - 24 hr 03/22/17 03/22/17 18:21 20:13 Temperature 37.1 C Heart Rate 80 74 Respiratory 18 16 Rate Blood Pressure 133/74 H 132/82 H O2 Saturation 95 97 Oxygen O2 Source [With Activity] Room air O2 Source [Without Activity] Room air O2 Source Room air - Labs Labs: Laboratory Tests 03/22/17 03/22/17 03/22/17 18:08 19:05 19:05 WBC 12.4 H RBC 4.73 Hgb 14.1 Hct 43.2 MCV 91.3 MCH 29.9 MCHC 32.7 RDW 17.7 H Plt Count 198 MPV 9.9 Neut # 6.2 Lymph # 4.2 H [place] # 1.6 H Eos # 0.2 Baso # 0.2 H Absolute Nucleated RBC 0.01 Nucleated RBCs 0.1 Manual Slide Review Indicated WBC Morphology NORMAL APPEARANCE Platelet Estimate NORMAL (130-450,000) Platelet Morphology RARE GIANT PLATELETS RBC Morph Micro Appear 1+ ANISOCYTOSIS Sodium 138 Potassium 4.7 Chloride 106 Carbon Dioxide 25 Anion Gap 7.0 BUN 17 Creatinine 0.9 Estimated GFR (MDRD) 65 L Glucose 134 H Calcium 9.0 Total Bilirubin 0.3 AST 23 ALT 16 Alkaline Phosphatase 64 Total Protein 7.1 Albumin 3.4 Globulin 3.7 Albumin/Globulin Ratio 0.9 L Lipase 10 L TSH Urine Color YELLOW Urine Clarity CLEAR Urine pH 7.0 Ur Specific [place] 1.010 Urine Protein NEGATIVE Urine Glucose (UA) NEGATIVE Urine Ketones NEGATIVE Urine Occult Blood NEGATIVE Urine Nitrite NEGATIVE Urine Bilirubin NEGATIVE Urine Urobilinogen 0.2 (NORMAL) Ur Leukocyte Esterase NEGATIVE Ur Microscopic Review NOT INDICATED Urine Culture Comments NOT INDICATED Last Dose Date Last Dose Time Urine Opiates Screen POSITIVE H Ur Oxycodone Screen NEGATIVE Urine Methadone Screen NEGATIVE Ur Propoxyphene Screen NEGATIVE Ur Barbiturates Screen NEGATIVE Valproic Acid Ur Tricyclics Screen NEGATIVE Ur Phencyclidine Scrn NEGATIVE Ur Amphetamine Screen NEGATIVE U Methamphetamines Scrn NEGATIVE U Benzodiazepines Scrn POSITIVE H Urine Cocaine Screen NEGATIVE U Cannabinoids Screen NEGATIVE Ethyl Alcohol < 5.0 03/22/17 03/22/17 19:05 19:05 WBC RBC Hgb Hct MCV MCH MCHC RDW Plt Count MPV Neut # Lymph # [place] # Eos # Baso # Absolute Nucleated RBC Nucleated RBCs Manual Slide Review WBC Morphology Platelet Estimate Platelet Morphology RBC Morph Micro Appear Sodium Potassium Chloride Carbon Dioxide Anion Gap BUN Creatinine Estimated GFR (MDRD) Glucose Calcium Total Bilirubin AST ALT Alkaline Phosphatase Total Protein Albumin Globulin Albumin/Globulin Ratio Lipase TSH 3.73 Urine Color Urine Clarity Urine pH Ur Specific [place] Urine Protein Urine Glucose (UA) Urine Ketones Urine Occult Blood Urine Nitrite Urine Bilirubin Urine Urobilinogen Ur Leukocyte Esterase Ur Microscopic Review Urine Culture Comments Last Dose Date UNKNOWN Last Dose Time UNKNOWN Urine Opiates Screen Ur Oxycodone Screen Urine Methadone Screen Ur Propoxyphene Screen Ur Barbiturates Screen Valproic Acid 82.7 Ur Tricyclics Screen Ur Phencyclidine Scrn Ur Amphetamine Screen U Methamphetamines Scrn U Benzodiazepines Scrn Urine Cocaine Screen U Cannabinoids Screen Ethyl Alcohol PD MEDICAL DECISION MAKING - ED course ED course: This patient presents after voicing her desire to harm herself by taking medications. She does have a long history of schizophrenia is currently at the [facility] where she is watched closely. At the present time she does not appear overtly depressed and has no psychotic findings here on examination. Routine labs were done and are normal. Her tox screens are positive for opiates and benzodiazepines. She is on benzodiazepines chronically according to her medical record. She did request Ativan here which is given to her since she was a little aggressive initially. Now she is quite relaxed and calm. At this point in time we are awaiting mental health evaluation.At this time I do not see any high risk features That would without question warrant transfer to psychiatric hospital but I will let the mental health team decide final disposition as a know her very well. Disposition pending Clinical impression: 1. Suicidal thoughts 2. History of schizophrenia with suicidal attempt in the past
[2017-03-23] MEDS ORDERED: LORazepam 0.5 MG TABLET PO STA (00:54)
[2017-03-23] MEDS ORDERED: IBUPROFEN 400 MG TABLET PO STA (00:54)
[2017-03-23] MEDS ORDERED: LORazepam 0.5 MG TABLET ONE (00:55)
[2017-03-23] MEDS ORDERED: IBUPROFEN 400 MG TABLET PO ONE (00:56)
[2017-03-23 08:22] VITALS: BP 120/64
--- NOTE | 2017-04-18 19:14 | ED Physician Documentation ---
ED Addendum - Addendum Addendum: 04/18/17 19:14 Disposition clarification: She was transferred to [facility] psychiatric facility by ambulance in stable condition.
== END 2017-03-23 08:20 ==
LOC: ED 18:05
DX: F20.9 Schizophrenia, unspecified (principal); R45.851 Suicidal ideations; E11.9 Type 2 diabetes mellitus without complications; K21.9 Gastro-esophageal reflux disease without esophagitis; J44.9 Chronic obstructive pulmonary disease, unspecified; Z86.73 Personal history of transient ischemic attack (TIA), and cerebral infarction without residual deficits; F17.200 Nicotine dependence, unspecified, uncomplicated
CPT/HCPCS: 36415; 80053; 80164; 80306; 81003; 83690; 84443; 85025; 99284; A9270; G0480; 80320; 81001; 87086; 99283

== ENCOUNTER 2017-03-23 08:26 | Outpatient (CLI) | payer MEDICARE, MEDICAID | END 2017-03-23 08:27 | LOC: EMS 08:26 | PROVIDERS: ATTEND Surgery | DX: R45.851 Suicidal ideations (principal) | CPT/HCPCS: A0425; A0428 ==

== ENCOUNTER 2017-04-12 22:00 | Outpatient (CLI) | payer MEDICARE, MEDICAID | END 2017-04-12 22:01 | disposition critical access hospital (66) | LOC: EMS 22:00 | PROVIDERS: ATTEND Surgery | DX: R60.0 Localized edema (principal); M79.662 Pain in left lower leg; M79.661 Pain in right lower leg | CPT/HCPCS: A0425; A0429 ==

== ENCOUNTER 2017-04-12 22:16 | Emergency (ER) | payer MEDICARE, MEDICAID ==
[2017-04-12 22:20] VITALS: BP 132/79
[2017-04-12] MEDS ORDERED: ACETAMINOPHEN 325 MG TABLET PO STA (22:23)
--- NOTE | 2017-04-12 22:26 | ED Physician Documentation ---
History of Present Illness - Stated complaint Stated Complaint: BILAT LEG PN - Chief complaint Chief Complaint: General - History obtained from History obtained from: Patient - History of Present Illness Timing: How many weeks ago (1) Pain level max: 9 Pain level now: 9 - Additonal information Additional information: Patient is a 52-year-old female who presents to the emergency department with complaints of bilateral lower extremity swelling over the past week. This has happened to her before. She states that is painful. No recent injuries. She states she has been crocheting recently. No recent travel. No redness or swelling. Better with elevation. 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 : None HEENT: None Psych: Schizophrenia Musculoskeletal: None Derm: None - Past Surgical History Past Surgical History: Yes General: Bowel surgery Ortho: Other /CHUCK WAGON DRIVER: 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 HEENT: Cataracts - Present Medications Home Medications: Ambulatory Orders Medication Instructions Recorded Confirmed Verapamil ER [Calan SA] 180 mg PO DAILY 03/25/16 04/12/17 Lamotrigine 75 mg PO DAILY 06/20/16 04/12/17 Olanzapine 10 mg PO BID 06/20/16 04/12/17 Omeprazole [PriLOSEC] 20 mg PO BIDAC 06/20/16 04/12/17 Albuterol Sulf [Ventolin Hfa 2 puffs INH Q4H PRN 12/25/16 04/12/17 Inhaler] Divalproex ER [Depakote ER] 1,250 mg PO QPM 12/25/16 04/12/17 Divalproex ER [Depakote ER] 750 mg PO DAILY 12/25/16 04/12/17 Famotidine 20 mg PO DAILY 12/25/16 04/12/17 Lorazepam 0.5 mg PO DAILY 12/25/16 04/12/17 Prazosin HCl [Minipress] 5 mg PO QPM 12/25/16 04/12/17 Rizatriptan Benzoate [Rizatriptan] 10 mg PO ONCE PRN 12/25/16 04/12/17 Thioridazine HCl 50 mg PO BID PRN 12/25/16 04/12/17 Trazodone HCl 100 - 200 mg PO QPM PRN 12/25/16 04/12/17 hydrOXYzine PAMOATE [Vistaril] 50 mg PO BID PRN 12/25/16 04/12/17 Sucralfate 1 gm PO ACHS #90 tablet 01/20/17 04/12/17 Promethazine [Phenergan] 25 mg PO Q6H PRN #10 tab 03/19/17 04/12/17 - Allergies Allergies/Adverse Reactions: Allergies Allergy/AdvReac Type Severity Reaction Status Date / Time azithromycin Allergy Severe Hives Verified 04/12/17 22:20 haloperidol Allergy Severe Anaphylaxis Verified 04/12/17 22:20 Penicillins Allergy Severe Anaphylaxis Verified 04/12/17 22:20 amoxicillin [Amoxicillin] Allergy Intermediate Rash Verified 04/12/17 22:20 grapefruit Allergy Intermediate Rash Verified 04/12/17 22:20 iodine Allergy Intermediate Rash Verified 04/12/17 22:20 Sulfa (Sulfonamide Allergy Intermediate Rash Verified 04/12/17 22:20 Antibiotics) haloperidol lactate * AdvReac Rash Verified 04/12/17 22:20 [From Haldol] - Social History Does the pt smoke?: Yes Smoking Status: Current every day smoker Does the pt drink ETOH?: No Does the pt have substance abuse?: No - Immunizations Immunizations are current?: No Immunizations: TDAP >10years/unknown - POLST Patient has POLST: No PD ED PE NORMAL - Vitals Vital signs reviewed: Yes - General General: Alert and oriented X 3, No acute distress - HEENT HEENT: Moist mucous membranes - Neck Neck: Supple, no meningeal sign - Cardiac Cardiac: RRR - Respiratory Respiratory: No respiratory distress, Clear bilaterally - Derm Derm: Warm and dry - Extremities Extremities: Other (Bilateral lower extremity 1-2+ lower extremity edema. Pitting. No evidence of infection. No calf tenderness or cord.) - Neuro Neuro: Alert and oriented X 3 - Psych Psych: Normal mood, Normal affect Results - Vitals Vitals: Vital Signs - 24 hr 04/12/17 22:17 Temperature 36.8 C Heart Rate 100 Respiratory 20 Rate Blood Pressure 132/79 H O2 Saturation 98 Oxygen O2 Source [With Activity] Room air O2 Source [Without Activity] Room air O2 Source Room air PD MEDICAL DECISION MAKING - ED course Complexity details: considered differential, d/w patient ED course: Patient is a 52-year-old female who presents to the emergency department with mild bilateral peripheral edema. Compression stockings were placed. The edema resolves when she elevates her legs. No evidence of DVT. No evidence of cellulitis. She is well-appearing, nontoxic. Afebrile. Patient counseled regarding signs and symptoms for which I believe and urgent re-evaluation would be necessary. Patient with good understanding of and agreement to plan and is comfortable going home at this time This document was made in part using voice recognition software. While efforts are made to proofread this document, sound alike and grammatical errors may occur. Departure - Departure Disposition: 01 Home, Self Care Clinical Impression: Peripheral edema Condition: Good Instructions: ED Edema Legs Bilateral Follow-Up: your,doctor in 1 week [Other] Comments: You should wear the compression stockings at home. Return if you worsen. Follow-up with your doctor. Discharge Date/Time: 04/12/17 23:00
[2017-04-12] MEDS ORDERED: ACETAMINOPHEN 325 MG TABLET PO ONE (22:30)
== END 2017-04-12 23:00 | disposition home or self-care (01) ==
LOC: EDUNIT# → EDBD → ED 22:16
DX: R60.0 Localized edema (principal); E11.9 Type 2 diabetes mellitus without complications; F17.200 Nicotine dependence, unspecified, uncomplicated; Z86.73 Personal history of transient ischemic attack (TIA), and cerebral infarction without residual deficits
CPT/HCPCS: 99283; A9270

== ENCOUNTER 2017-04-18 16:32 | Outpatient (CLI) | payer MEDICARE, MEDICAID ==
--- NOTE | 2017-04-19 11:03 | MRI Report ---
EXAM: MRI CERVICAL SPINE WITHOUT CONTRAST EXAM DATE: 04/18/2017 05:00 p.m. CLINICAL HISTORY: Left side nerve pain. Left-sided neck pain for 3 months. History of ovarian/uterine cancer. COMPARISONS: Report of CT scan of the cervical spine 03/04/2017 (images not provided). Cervical spine plain films 05/23/2016. CT scan of the cervical spine 04/16/2015. TECHNIQUE: Multiplanar, multisequence T1-weighted and fluid-sensitive sequences of the cervical spine without contrast. Other: None. FINDINGS: Neurologic Structures: The visualized posterior fossa structures are unremarkable. No signal abnormal ity in the visualized spinal cord. Alignment: Normal. No scoliosis or spondylolisthesis. Bone Marrow: No gross fractures or bone lesions. No marrow edema. Interspace Levels/Facets: C1-C2: Unremarkable on sagittal series. C2-C3: Marked right-sided hypertrophic degenerative uncovertebral change is seen. There is underlying moderate to marked osseous right foraminal stenosis. This is unchanged. C3-C4: Mild broad-based dorsal disk bulge is seen, greater to the right. Moderate right-sided and mil d left-sided degenerative uncovertebral change is noted. Effacement of the ventral thecal sac is seen with mild canal narrowing. Mild right foraminal stenosis. C4-C5: Unremarkable. C5-C6: Mild loss of disk space height is seen. Minimal circumferential disk bulge is seen. Moderate r ight-sided and mild left-sided degenerative uncovertebral change is seen. Effacement of the thecal sa c is noted with mild canal narrowing. Moderate right foraminal stenosis. Mild left foraminal stenosis . C6-C7: Mild loss of disk space height is seen. Mild circumferential disk bulge is seen. Mild asymmetr ic left foraminal disk bulge is seen. Mild left foraminal stenosis. Effacement of the thecal sac is n oted with mild canal narrowing. C7-T1: Unremarkable. Mild anterior osteophyte formation. Musculature: Normal. No edema or fatty atrophy. Other: The paravertebral and prevertebral soft tissues are normal. IMPRESSION: 1. Normal appearance to the cervical spinal cord. 2. Scattered spondylosis throughout the cervical spine as discussed above. Degenerative disk and unco vertebral change predominates. 3. C2-C3: Right moderate to marked foraminal stenosis secondary to hypertrophic degenerative uncovert ebral change. 4. C3-C4: Mild canal narrowing. Mild right foraminal stenosis. 5. C5-C6: Mild canal narrowing. Right moderate foraminal stenosis. Left mild foraminal stenosis. 6. C6-C7: Mild canal narrowing. Left mild foraminal stenosis. [facility] Referring Provider Line: [phone] SITE ID: [id number]
== END 2017-04-18 16:33 | disposition home or self-care (01) ==
LOC: DI 16:32
PROVIDERS: ATTEND Orthopaedic Surgery
DX: M47.22 Other spondylosis with radiculopathy, cervical region (principal); M54.2 Cervicalgia
CPT/HCPCS: 72141

== ENCOUNTER 2017-04-24 21:43 | Outpatient (CLI) | payer MEDICARE, MEDICAID | END 2017-04-24 21:44 | disposition critical access hospital (66) | LOC: EMS 21:43 | PROVIDERS: ATTEND Surgery | DX: T43.592A Poisoning by other antipsychotics and neuroleptics, intentional self-harm, initial encounter (principal) | CPT/HCPCS: A0425; A0429 ==

== ENCOUNTER 2017-04-24 22:02 | Emergency (ER) | payer MEDICARE, MEDICAID ==
[2017-04-24 22:33] LABS: BASOPHILS % (AUTO) 1.2 %; EOSINOPHILS % (AUTO) 1.3 %; HCT - HEMATOCRIT 42.8 % (37.0-47.0); HGB - HEMOGLOBIN 14.2 g/dL (12.0-16.0); LYMPHOCYTES % (AUTO) 47.3 %; MEAN CORPUSCULAR HEMOGLOBIN 30.7 pg (27.0-31.0); MEAN CORPUSCULAR HGB CONC 33.2 g/dL (32.0-36.0); MEAN CORPUSCULAR VOLUME 92.4 fL (81.0-99.0); MEAN PLATELET VOLUME 8.5 fL (7.9-10.8); NEUTROPHILS % (AUTO) 34.2 %; RED BLOOD COUNT 4.63 10^6/uL (4.20-5.40); RED CELL DISTRIBUTION WIDTH 15.9 % (12.0-15.0); UNCORRECTED WHITE BLOOD COUNT 12.5 x10^3/uL; WHITE BLOOD COUNT 12.5 x10^3/uL (4.8-10.8)
--- NOTE | 2017-04-24 22:35 | ED Physician Documentation ---
History of Present Illness - Stated complaint Stated Complaint: SI/OD - Chief complaint Chief Complaint: MHE - Additonal information Additional information: Giuseppe is a 52-year-old female with a history of schizophrenia, diabetes, seizure disorder and a history of suicidal ideation. She presents to the hospital for evaluation of an intentional overdose. At 930 she took several different medications including her Celexa, Vistaril, prazosin and olanzapine. The patient's roommate was was told by the patient that she is taking his medications he subsequently called the police who called the ambulance and brought her here. The patient took this medication about an hour ago and is asymptomatic. She has no complaints at this time. She said she took the medications to sleep because she is approaching the anniversary of her mother's . She says she is not suicidal. Review of systems: For pertinent positive and negatives in the review of systems please see the history of present illness, otherwise all other systems have been reviewed and are negative. Dragon disclaimer: Parts of this medical record were created using voice recognition technology. Because of the inherent limitations of this system, occasional same sounding word substitutions do occur and persist despite proofreading. Please read the document for context. Review of Systems Psychiatric: reports: Depressed, Insomnia. 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 : None HEENT: None Psych: Schizophrenia Musculoskeletal: None Derm: None - Past Surgical History Past Surgical History: Yes General: Bowel surgery Ortho: Other /SENIOR WEALTH ADVISOR: 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 HEENT: Cataracts - Present Medications Home Medications: Ambulatory Orders Medication Instructions Recorded Confirmed Verapamil ER [Calan SA] 180 mg PO DAILY 03/25/16 04/12/17 Lamotrigine 75 mg PO DAILY 06/20/16 04/12/17 Olanzapine 10 mg PO BID 06/20/16 04/12/17 Omeprazole [PriLOSEC] 20 mg PO BIDAC 06/20/16 04/12/17 Albuterol Sulf [Ventolin Hfa 2 puffs INH Q4H PRN 12/25/16 04/12/17 Inhaler] Divalproex ER [Depakote ER] 1,250 mg PO QPM 12/25/16 04/12/17 Divalproex ER [Depakote ER] 750 mg PO DAILY 12/25/16 04/12/17 Famotidine 20 mg PO DAILY 12/25/16 04/12/17 Lorazepam 0.5 mg PO DAILY 12/25/16 04/12/17 Prazosin HCl [Minipress] 5 mg PO QPM 12/25/16 04/12/17 Rizatriptan Benzoate [Rizatriptan] 10 mg PO ONCE PRN 12/25/16 04/12/17 Thioridazine HCl 50 mg PO BID PRN 12/25/16 04/12/17 Trazodone HCl 100 - 200 mg PO QPM PRN 12/25/16 04/12/17 hydrOXYzine PAMOATE [Vistaril] 50 mg PO BID PRN 12/25/16 04/12/17 Sucralfate 1 gm PO ACHS #90 tablet 01/20/17 04/12/17 Promethazine [Phenergan] 25 mg PO Q6H PRN #10 tab 03/19/17 04/12/17 - Allergies Allergies/Adverse Reactions: Allergies Allergy/AdvReac Type Severity Reaction Status Date / Time azithromycin Allergy Severe Hives Verified 04/12/17 22:20 haloperidol Allergy Severe Anaphylaxis Verified 04/12/17 22:20 Penicillins Allergy Severe Anaphylaxis Verified 04/12/17 22:20 amoxicillin [Amoxicillin] Allergy Intermediate Rash Verified 04/12/17 22:20 grapefruit Allergy Intermediate Rash Verified 04/12/17 22:20 iodine Allergy Intermediate Rash Verified 04/12/17 22:20 Sulfa (Sulfonamide Allergy Intermediate Rash Verified 04/12/17 22:20 Antibiotics) haloperidol lactate * AdvReac Rash Verified 04/12/17 22:20 [From Haldol] - Social History Does the pt smoke?: Yes Smoking Status: Current every day smoker Does the pt drink ETOH?: No Does the pt have substance abuse?: No - Immunizations Immunizations are current?: No Immunizations: TDAP >10years/unknown - POLST Patient has POLST: No PD ED PE NORMAL - Vitals Vital signs reviewed: Yes - General General: Alert and oriented X 3, No acute distress, Well developed/nourished, Other (Slightly sedated but the patient is alert and oriented 3 answers questions appropriately) - HEENT HEENT: Atraumatic - Neck Neck: Supple, no meningeal sign - Cardiac Cardiac: RRR, No gallop - Respiratory Respiratory: No respiratory distress, Clear bilaterally - Abdomen Abdomen: Normal bowel sounds, Non tender, Non distended - Back Back: No CVA TTP - Derm Derm: Normal color, Warm and dry, No rash - Extremities Extremities: No deformity, No tenderness to palpate, Normal ROM s pain - Neuro Neuro: Alert and oriented X 3 Results - Vitals Vitals: Vital Signs - 24 hr 04/24/17 22:06 Temperature 36.8 C Heart Rate 95 Respiratory 18 Rate Blood Pressure 127/77 O2 Saturation 93 Oxygen O2 Source [With Activity] Room air O2 Source [Without Activity] Room air O2 Source Room air
[2017-04-24 22:54] LABS: ACETAMINOPHEN < 10 ug/mL (10-30); BILIRUBIN,TOTAL 0.3 mg/dL (0.2-1.0); BUN - BLOOD UREA NITROGEN 16 mg/dL (6-20); CALCIUM 9.2 mg/dL (8.5-10.3); CARBON DIOXIDE - CO2 26 mmol/L (21-32); CHLORIDE 102 mmol/L (101-111); CREATININE 0.8 mg/dL (0.4-1.0); GFR - MDRD 75 (>89); GLUCOSE 121 mg/dL (70-100); LIPASE 16 U/L (22-51); POTASSIUM 3.5 mmol/L (3.5-5.0); SALICYLATE < 6.0 mg/dL; SODIUM 139 mmol/L (135-145); TOTAL PROTEIN 7.2 g/dL (6.7-8.2)
[2017-04-24 23:02] LABS: BAND NEUTROPHILS % (MANUAL) 2 %; LYMPHOCYTES % (MANUAL) 34 %; NEUTROPHILS % (MANUAL) 45 %; NP AUTO DIFFERENTIAL? YES; NP MAN DIFFERENTIAL? NO; PLATELET ESTIMATE, MANUAL NORMAL (130-450,000) (NORMAL); PLATELET MORPHOLOGY NORMAL APPEARANCE (NORMAL); TOTAL CELLS COUNTED 100
[2017-04-24 23:13] LABS: BILIRUBIN,URINE NEGATIVE (NEGATIVE)
[2017-04-24 23:26] LABS: UA CHARGE (STRIP ONLY) YES; UR CULTURE IF IND NOT INDICATED
[2017-04-25 04:59] VITALS: BP 132/70
== END 2017-04-25 04:59 | disposition home or self-care (01) ==
LOC: EDUNIT# → ED 22:02
DX: T43.224A Poisoning by selective serotonin reuptake inhibitors, undetermined, initial encounter (principal); T43.594A Poisoning by other antipsychotics and neuroleptics, undetermined, initial encounter; T44.6X Poisoning by, adverse effect of and underdosing of alpha-adrenoreceptor antagonists; Y92.009 Unspecified place in unspecified non-institutional (private) residence as the place of occurrence of the external cause; F20.9 Schizophrenia, unspecified; F32.9 Major depressive disorder, single episode, unspecified; E11.9 Type 2 diabetes mellitus without complications; G40.909 Epilepsy, unspecified, not intractable, without status epilepticus; K21.9 Gastro-esophageal reflux disease without esophagitis; J45.909 Unspecified asthma, uncomplicated; F17.200 Nicotine dependence, unspecified, uncomplicated; Z91.5 Personal history of self-harm
CPT/HCPCS: 36415; 80053; 80306; 80307; 81003; 83690; 85025; 93005; 99283; G0480; 80320; 80329; 81001; 87086

== ENCOUNTER 2017-05-11 17:39 | Outpatient (CLI) | payer MEDICARE, MEDICAID | END 2017-05-11 17:40 | disposition critical access hospital (66) | LOC: EMS 17:39 | PROVIDERS: ATTEND Surgery | DX: S51.812A Laceration without foreign body of left forearm, initial encounter (principal); S51.811A Laceration without foreign body of right forearm, initial encounter; X78.0XXA Intentional self-harm by sharp glass, initial encounter | CPT/HCPCS: A0425; A0429 ==

== ENCOUNTER 2017-05-11 18:01 | Emergency (ER) | payer MEDICARE, MEDICAID ==
[2017-05-11 18:09] VITALS: BP 157/105
--- NOTE | 2017-05-11 18:13 | ED Physician Documentation ---
PD HPI MHE - Stated complaint Stated Complaint: SI - ARM LACS - Chief complaint Chief Complaint: MHE - History obtained from History obtained from: Patient, EMS - History of Present Illness Primary symptom: Self harm - cut. No: Suicide attempt (she says she did it just to feel the pain. Did not intend suicide. Feeling stressed today, also with URI symptoms for couple of days, with some cough and wheezing.) Timing - onset: Today Contributing factors: No: Substance abuse - ETOH, Substance abuse - drugs, Off meds Similar symptoms before: Diagnosis (history of self-cutting in the past. Has had some overdoses and other self-harm with suicidal ideation in the past, but denies that today.) Review of Systems Constitutional: reports: Myalgias. denies: Fever, Chills Nose: reports: Congestion Cardiac: denies: Chest pain / pressure Respiratory: reports: Cough, Wheezing GI: reports: Diarrhea (some today). 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 EXPERT: None : None HEENT: None Psych: Schizophrenia Musculoskeletal: None Derm: None - Past Surgical History Past Surgical History: Yes General: Bowel surgery Ortho: Other /TAX EXPERT: 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 HEENT: Cataracts - Present Medications Home Medications: Ambulatory Orders Medication Instructions Recorded Confirmed Verapamil ER [Calan SA] 180 mg PO DAILY 03/25/16 04/12/17 Lamotrigine 75 mg PO DAILY 06/20/16 04/12/17 Olanzapine 10 mg PO BID 06/20/16 04/12/17 Omeprazole [PriLOSEC] 20 mg PO BIDAC 06/20/16 04/12/17 Albuterol Sulf [Ventolin Hfa 2 puffs INH Q4H PRN 12/25/16 04/12/17 Inhaler] Divalproex ER [Depakote ER] 1,250 mg PO QPM 12/25/16 04/12/17 Divalproex ER [Depakote ER] 750 mg PO DAILY 12/25/16 04/12/17 Famotidine 20 mg PO DAILY 12/25/16 04/12/17 Lorazepam 0.5 mg PO DAILY 12/25/16 04/12/17 Prazosin HCl [Minipress] 5 mg PO QPM 12/25/16 04/12/17 Rizatriptan Benzoate [Rizatriptan] 10 mg PO ONCE PRN 12/25/16 04/12/17 Thioridazine HCl 50 mg PO BID PRN 12/25/16 04/12/17 Trazodone HCl 100 - 200 mg PO QPM PRN 12/25/16 04/12/17 hydrOXYzine PAMOATE [Vistaril] 50 mg PO BID PRN 12/25/16 04/12/17 Sucralfate 1 gm PO ACHS #90 tablet 01/20/17 04/12/17 Promethazine [Phenergan] 25 mg PO Q6H PRN #10 tab 03/19/17 04/12/17 Dexamethasone [Decadron] 4 mg PO DAILY #5 tablet 05/11/17 - Allergies Allergies/Adverse Reactions: Allergies Allergy/AdvReac Type Severity Reaction Status Date / Time azithromycin Allergy Severe Hives Verified 04/12/17 22:20 haloperidol Allergy Severe Anaphylaxis Verified 04/12/17 22:20 Penicillins Allergy Severe Anaphylaxis Verified 04/12/17 22:20 amoxicillin [Amoxicillin] Allergy Intermediate Rash Verified 04/12/17 22:20 grapefruit Allergy Intermediate Rash Verified 04/12/17 22:20 iodine Allergy Intermediate Rash Verified 04/12/17 22:20 Sulfa (Sulfonamide Allergy Intermediate Rash Verified 04/12/17 22:20 Antibiotics) haloperidol lactate * AdvReac Rash Verified 04/12/17 22:20 [From Haldol] - Social History Does the pt smoke?: Yes Smoking Status: Current every day smoker Does the pt drink ETOH?: No Does the pt have substance abuse?: No - Immunizations Immunizations are current?: No Immunizations: TDAP >10years/unknown - POLST Patient has POLST: No PD ED PE NORMAL - Vitals Vital signs reviewed: Yes - General General: Alert and oriented X 3, No acute distress, Well developed/nourished - HEENT HEENT: Pharynx benign - Neck Neck: Supple, no meningeal sign, No adenopathy - Cardiac Cardiac: RRR, No murmur - Respiratory Respiratory: Other (diffuse scattered wheezing. No coarse sounds. ) - Abdomen Abdomen: Soft, Non tender - Derm Derm: Warm and dry - Extremities Extremities: Normal ROM s pain, No edema, No calf tenderness / cord, Other ( both forearms with superficial lacerations (non needing suturing). ) - Neuro Neuro: Alert and oriented X 3, No motor deficit, No sensory deficit Results - Vitals Vitals: Vital Signs - 24 hr 05/11/17 05/11/17 18:04 18:55 Temperature 37.3 C Heart Rate 96 90 Respiratory 16 16 Rate Blood Pressure 157/105 H O2 Saturation 95 Oxygen O2 Source [With Activity] Room air O2 Source [Without Activity] Room air O2 Source Room air - Rads (name of study) chest Radiology: Prelim report reviewed, EMP read contemporaneously PD MEDICAL DECISION MAKING - ED course Complexity details: considered differential (not suicidal; self-cutting. Has some wheezing and cough - will give steroid short course. Had some diarrhea today (presume part of viral illness) and given dose of Lomotil. She feels relaxed here after dose of Ativan PO and wants to go home, promising not to do any more self-cutting today/near future. ), d/w patient Departure - Departure Disposition: Home, Self Care Clinical Impression: Anxiety, Wheezing Laceration of arm Qualifiers: Encounter type: initial encounter Laterality: unspecified laterality Qualified Code(s): S41.119A - Laceration without foreign body of unspecified upper arm, initial encounter Condition: Stable Record reviewed to determine appropriate education?: Yes Instructions: ED Stress React Follow-Up: María Elena Ponce MD [Primary Care Provider] - Prescriptions: Dexamethasone [Decadron] 4 mg PO DAILY #5 tablet Comments: For the arm wounds, clean them with soap and water daily and apply dressings. Recheck if signs of infection. Tylenol if needed for pains. For your wheezing and congestion, use your albuterol inhaler 2 puffs 4 times a day. Add Decadron daily which is a steroid for 5 days to decrease the airway inflammation. Recheck if not improved over the next few days. Discharge Date/Time: 05/11/17 21:00
[2017-05-11] MEDS ORDERED: IPRATROPIUM/ALBUTEROL 3 ML NEB INH STA (18:30)
[2017-05-11] MEDS ORDERED: ACETAMINOPHEN 325 MG TABLET PO STA (18:30)
[2017-05-11] MEDS ORDERED: LORazepam 0.5 MG TABLET PO STA (18:30)
[2017-05-11] MEDS ORDERED: LORazepam 0.5 MG TABLET ONE (18:40)
[2017-05-11] MEDS ORDERED: ACETAMINOPHEN 325 MG TABLET PO ONE (18:40)
[2017-05-11] MEDS ORDERED: IPRATROPIUM/ALBUTEROL 3 ML NEB INH ONE (19:00)
--- NOTE | 2017-05-11 19:05 | XRAY Preliminary Report ---
Exam: XR Chest 2 View PA/LAT IMPRESSION: Mild patchy opacities in the lower lungs bilaterally, atelectasis versus early infiltrate . [facility] SITE ID: [id number]
--- NOTE | 2017-05-11 19:08 | XRAY Report ---
EXAM: CHEST RADIOGRAPHY EXAM DATE: 05/11/2017 06:53 PM. CLINICAL HISTORY: Cough and wheezing. COMPARISON: 03/19/2017. 12/24/2016. TECHNIQUE: 2 views. FINDINGS: Lungs/Pleura: There are new mild patchy opacities in the lower lungs bilaterally. No pneumothorax or pleural effusion. Mediastinum: Heart and mediastinal contours are unremarkable. Other: There are surgical clips in the right upper quadrant of the abdomen. IMPRESSION: Mild patchy opacities in the lower lungs bilaterally, atelectasis versus early infiltrate . [facility] Referring Provider Line: [phone] SITE ID: [id number]
[2017-05-11] MEDS ORDERED: DIPHENOX/ATROPINE 2.5/0.025 MG TABLET PO STA (19:53)
[2017-05-11] MEDS ORDERED: DEXAMETHASONE 10 MG/ML VIAL PO STA (19:53)
== END 2017-05-11 21:00 | disposition home or self-care (01) ==
LOC: EDUNIT# → ED 18:01
DX: F41.9 Anxiety disorder, unspecified (principal); R06.2 Wheezing; S51.812A Laceration without foreign body of left forearm, initial encounter; S51.811A Laceration without foreign body of right forearm, initial encounter; X78.9XXA Intentional self-harm by unspecified sharp object, initial encounter; F17.200 Nicotine dependence, unspecified, uncomplicated; E11.9 Type 2 diabetes mellitus without complications; Z91.5 Personal history of self-harm; Z86.73 Personal history of transient ischemic attack (TIA), and cerebral infarction without residual deficits
CPT/HCPCS: 71020; 94640; 99284; A9270; J7620

== ENCOUNTER 2017-05-21 15:16 | Outpatient (CLI) | payer MEDICARE, MEDICAID | END 2017-05-21 15:17 | disposition critical access hospital (66) | LOC: EMS 15:16 | PROVIDERS: ATTEND Surgery | DX: R22.41 Localized swelling, mass and lump, right lower limb (principal); T63.441A Toxic effect of venom of bees, accidental (unintentional), initial encounter; Y92.038 Other place in apartment as the place of occurrence of the external cause | CPT/HCPCS: A0425; A0427 ==

== ENCOUNTER 2017-05-21 15:37 | Emergency (ER) | payer MEDICARE, MEDICAID ==
[2017-05-21] MEDS ORDERED: IPRATROPIUM/ALBUTEROL 3 ML NEB INH STA (15:42)
[2017-05-21] MEDS ORDERED: DEXAMETHASONE 10 MG/ML VIAL IM STA (15:42)
--- NOTE | 2017-05-21 15:45 | ED Physician Documentation ---
History of Present Illness - Stated complaint Stated Complaint: BEE STING ALLERGY - History obtained from History obtained from: Patient - History of Present Illness Timing: Today - Additonal information Additional information: 52-year-old female with a history of bee sting allergy was stung by a bee in the right knee today and she has developed shortness of breath. She has not developed a rash or syncope.She is transport of the by the ambulance having been given 50 mg of Benadryl IM. Review of Systems Constitutional: denies: Fever Eyes: denies: Decreased vision Ears: denies: Ear pain Nose: reports: Rhinorrhea / runny nose, Congestion Throat: denies: Sore throat Cardiac: denies: Chest pain / pressure, Palpitations Respiratory: reports: Dyspnea, Cough, Wheezing GI: denies: Abdominal Pain, Nausea, Vomiting : denies: Dysuria, Frequency Skin: reports: Bite / sting. denies: Rash Musculoskeletal: reports: Extremity pain. denies: Neck pain, Back pain PD PAST MEDICAL HISTORY - Past Medical History Cardiovascular: Other Respiratory: COPD, Pneumonia Neuro: TIA, Seizure disorder Endocrine/Autoimmune: Type 2 diabetes GI: GERD, Hiatal hernia CLIENT ANALYST: None : None HEENT: None Psych: Schizophrenia Musculoskeletal: None Derm: None - Past Surgical History Past Surgical History: Yes General: Bowel surgery Ortho: Other /CLIENT ANALYST: 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 HEENT: Cataracts - Present Medications Home Medications: Ambulatory Orders Medication Instructions Recorded Confirmed Verapamil ER [Calan SA] 180 mg PO DAILY 03/25/16 04/12/17 Lamotrigine 75 mg PO DAILY 06/20/16 04/12/17 Olanzapine 10 mg PO BID 06/20/16 04/12/17 Omeprazole [PriLOSEC] 20 mg PO BIDAC 06/20/16 04/12/17 Albuterol Sulf [Ventolin Hfa 2 puffs INH Q4H PRN 12/25/16 04/12/17 Inhaler] Divalproex ER [Depakote ER] 1,250 mg PO QPM 12/25/16 04/12/17 Divalproex ER [Depakote ER] 750 mg PO DAILY 12/25/16 04/12/17 Famotidine 20 mg PO DAILY 12/25/16 04/12/17 Lorazepam 0.5 mg PO DAILY 12/25/16 04/12/17 Prazosin HCl [Minipress] 5 mg PO QPM 12/25/16 04/12/17 Rizatriptan Benzoate [Rizatriptan] 10 mg PO ONCE PRN 12/25/16 04/12/17 Thioridazine HCl 50 mg PO BID PRN 12/25/16 04/12/17 Trazodone HCl 100 - 200 mg PO QPM PRN 12/25/16 04/12/17 hydrOXYzine PAMOATE [Vistaril] 50 mg PO BID PRN 12/25/16 04/12/17 Sucralfate 1 gm PO ACHS #90 tablet 01/20/17 04/12/17 Promethazine [Phenergan] 25 mg PO Q6H PRN #10 tab 03/19/17 04/12/17 Dexamethasone [Decadron] 4 mg PO DAILY #5 tablet 05/11/17 - Allergies Allergies/Adverse Reactions: Allergies Allergy/AdvReac Type Severity Reaction Status Date / Time azithromycin Allergy Severe Hives Verified 05/21/17 15:46 haloperidol Allergy Severe Anaphylaxis Verified 05/21/17 15:46 Penicillins Allergy Severe Anaphylaxis Verified 05/21/17 15:46 amoxicillin [Amoxicillin] Allergy Intermediate Rash Verified 05/21/17 15:46 grapefruit Allergy Intermediate Rash Verified 05/21/17 15:46 iodine Allergy Intermediate Rash Verified 05/21/17 15:46 Sulfa (Sulfonamide Allergy Intermediate Rash Verified 05/21/17 15:46 Antibiotics) haloperidol lactate * AdvReac Rash Verified 05/21/17 15:46 [From Haldol] - Social History Does the pt smoke?: Yes Smoking Status: Current every day smoker Does the pt drink ETOH?: No Does the pt have substance abuse?: No - Immunizations Immunizations are current?: No Immunizations: TDAP >10years/unknown - POLST Patient has POLST: No PD ED PE NORMAL - Vitals Vital signs reviewed: Yes - General General: No acute distress, Well developed/nourished - HEENT HEENT: Atraumatic, PERRL, EOMI, Ears normal, Other (Dry mucous membranes) - Neck Neck: Supple, no meningeal sign, No bony TTP - Cardiac Cardiac: RRR, No murmur - Respiratory Respiratory: No respiratory distress, Other (Scattered wheezes and rhonchi bilaterally) - Abdomen Abdomen: Soft, Non tender - Back Back: No CVA TTP, No spinal TTP - Derm Derm: Normal color, Warm and dry, No rash - Extremities Extremities: No deformity, No edema, Other (There is erythema and urticaria to the right medial thigh distally ) - Neuro Neuro: Alert and oriented X 3, No motor deficit, No sensory deficit, Normal speech - Psych Psych: Normal mood, Normal affect Results - Vitals Vitals: Vital Signs - 24 hr 05/21/17 05/21/17 15:38 16:01 Temperature 37.2 C Heart Rate 80 91 Respiratory 19 18 Rate Blood Pressure 130/80 O2 Saturation 96 Oxygen O2 Source [With Activity] Room air O2 Source [Without Activity] Room air O2 Source Room air Departure - Departure Disposition: 01 Home, Self Care Clinical Impression: Bee sting reaction Qualifiers: Encounter type: initial encounter Injury intent: accidental or unintentional Qualified Code(s): T63.441A - Toxic effect of venom of bees, accidental ( unintentional), initial encounter Instructions: ED Bite Sting Insect Gen Allergic React Follow-Up: María Elena Ponce MD [Primary Care Provider] - Comments: Take benadryl 25 mg every 6 hours for the next 2 days. Discharge Date/Time: 05/21/17 17:17
[2017-05-21 15:47] VITALS: BP 130/80
[2017-05-21] MEDS ORDERED: IPRATROPIUM/ALBUTEROL 3 ML NEB INH ONE (16:00)
== END 2017-05-21 17:17 | disposition home or self-care (01) ==
LOC: EDUNIT# → ED 15:37
DX: T63.441A Toxic effect of venom of bees, accidental (unintentional), initial encounter (principal); Z91.030 Bee allergy status; J44.9 Chronic obstructive pulmonary disease, unspecified; Z86.73 Personal history of transient ischemic attack (TIA), and cerebral infarction without residual deficits; E11.9 Type 2 diabetes mellitus without complications; K21.9 Gastro-esophageal reflux disease without esophagitis; F17.200 Nicotine dependence, unspecified, uncomplicated
CPT/HCPCS: 94664; 96372; 99283; J7620

== ENCOUNTER 2017-05-22 18:32 | Outpatient (CLI) | payer MEDICARE, MEDICAID | END 2017-05-22 18:33 | disposition critical access hospital (66) | LOC: EMS 18:32 | PROVIDERS: ATTEND Surgery | DX: R45.851 Suicidal ideations (principal) | CPT/HCPCS: A0425; A0429 ==

== ENCOUNTER 2017-05-22 18:51 | Inpatient (IN) | payer MEDICARE, MEDICAID ==
--- NOTE | 2017-05-22 19:29 | ED Physician Documentation ---
PD HPI MHE - Stated complaint Stated Complaint: SI - Chief complaint Chief Complaint: MHE - History obtained from History obtained from: Patient - History of Present Illness Primary symptom: Other (52-year-old woman presents with complaints of suicidal ideation and thought to cut herself with broken glass. She has visual and auditory hallucinations surrounding the mafia telling her to do things. She does have an extensive psychiatric history and has been admitted several times for overdoses and suicide attempts and psychosis.) Review of Systems Ten Systems: 10 systems reviewed and negative Constitutional: reports: Fever, Chills, Fatigue Throat: reports: Reviewed and negative Cardiac: reports: Reviewed and negative Respiratory: reports: Reviewed and negative PD PAST MEDICAL HISTORY - Past Medical History Past Medical History: Yes Cardiovascular: Other Respiratory: COPD, Pneumonia Neuro: TIA, Seizure disorder Endocrine/Autoimmune: Type 2 diabetes GI: GERD, Hiatal hernia EDGE CUTTER: None : None HEENT: None Psych: Schizophrenia Musculoskeletal: None Derm: None - Past Surgical History Past Surgical History: Yes General: Bowel surgery Ortho: Other /EDGE CUTTER: 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 HEENT: Cataracts - Present Medications Home Medications: Ambulatory Orders Medication Instructions Recorded Confirmed Verapamil ER [Calan SA] 180 mg PO DAILY 03/25/16 05/22/17 Lamotrigine 75 mg PO DAILY 06/20/16 05/22/17 Olanzapine 10 mg PO BID 06/20/16 05/22/17 Omeprazole [PriLOSEC] 20 mg PO BIDAC 06/20/16 05/22/17 Albuterol Sulf [Ventolin Hfa 2 puffs INH Q4H PRN 12/25/16 05/22/17 Inhaler] Divalproex ER [Depakote ER] 1,250 mg PO QPM 12/25/16 05/22/17 Divalproex ER [Depakote ER] 750 mg PO DAILY 12/25/16 05/22/17 Famotidine 20 mg PO DAILY 12/25/16 05/22/17 Lorazepam 0.5 mg PO DAILY 12/25/16 05/22/17 Prazosin HCl [Minipress] 5 mg PO QPM 12/25/16 05/22/17 Rizatriptan Benzoate [Rizatriptan] 10 mg PO ONCE PRN 12/25/16 05/22/17 Thioridazine HCl 50 mg PO BID PRN 12/25/16 05/22/17 Trazodone HCl 100 - 200 mg PO QPM PRN 12/25/16 05/22/17 hydrOXYzine PAMOATE [Vistaril] 50 mg PO BID PRN 12/25/16 05/22/17 Sucralfate 1 gm PO ACHS #90 tablet 01/20/17 05/22/17 Promethazine [Phenergan] 25 mg PO Q6H PRN #10 tab 03/19/17 05/22/17 Dexamethasone [Decadron] 4 mg PO DAILY #5 tablet 05/11/17 05/22/17 - Allergies Allergies/Adverse Reactions: Allergies Allergy/AdvReac Type Severity Reaction Status Date / Time azithromycin Allergy Severe Hives Verified 05/21/17 15:46 haloperidol Allergy Severe Anaphylaxis Verified 05/21/17 15:46 Penicillins Allergy Severe Anaphylaxis Verified 05/21/17 15:46 amoxicillin [Amoxicillin] Allergy Intermediate Rash Verified 05/21/17 15:46 grapefruit Allergy Intermediate Rash Verified 05/21/17 15:46 iodine Allergy Intermediate Rash Verified 05/21/17 15:46 Sulfa (Sulfonamide Allergy Intermediate Rash Verified 05/21/17 15:46 Antibiotics) haloperidol lactate * AdvReac Rash Verified 05/21/17 15:46 [From Haldol] - Social History Does the pt smoke?: Yes Smoking Status: Current every day smoker Does the pt drink ETOH?: No Does the pt have substance abuse?: No - Family History Family history: reports: Non contributory - Immunizations Immunizations are current?: No Immunizations: TDAP >10years/unknown - POLST Patient has POLST: No PD ED PE NORMAL - Vitals Vital signs reviewed: Yes - General General: Alert and oriented X 3, No acute distress (But tearful at times) - HEENT HEENT: PERRL, EOMI - Neck Neck: Supple, no meningeal sign, No bony TTP - Cardiac Cardiac: RRR, No murmur - Respiratory Respiratory: No respiratory distress, Clear bilaterally - Abdomen Abdomen: Normal bowel sounds, Soft, Non tender - Back Back: No CVA TTP, No spinal TTP - Derm Derm: Normal color, Warm and dry - Extremities Extremities: No edema, No calf tenderness / cord - Neuro Neuro: Alert and oriented X 3, boot liner maker 2-12 intact, No motor deficit, No sensory deficit, Normal speech - Psych Psych: Other (Depressed with active psychosis) Results - Vitals Vitals: Vital Signs - 24 hr 05/22/17 18:53 Temperature 36.9 C Heart Rate 88 Respiratory 18 Rate Blood Pressure 124/79 O2 Saturation 96 Oxygen O2 Source [With Activity] Room air O2 Source [Without Activity] Room air O2 Source Room air - Labs Labs: Laboratory Tests 05/22/17 05/22/17 05/22/17 19:00 19:00 19:44 WBC 24.7 H RBC 4.18 L Hgb 12.7 Hct 38.8 MCV 92.8 MCH 30.3 MCHC 32.7 RDW 15.1 H Plt Count 288 MPV 9.2 Manual Slide Review Indicated Sodium Potassium Chloride Carbon Dioxide Anion Gap BUN Creatinine Estimated GFR (MDRD) Glucose Calcium Total Bilirubin AST ALT Alkaline Phosphatase Total Protein Albumin Globulin Albumin/Globulin Ratio Lipase Urine Color YELLOW Urine Clarity CLEAR Urine pH 6.0 Ur Specific [place] >=1.030 H Urine Protein NEGATIVE Urine Glucose (UA) NEGATIVE Urine Ketones NEGATIVE Urine Occult Blood NEGATIVE Urine Nitrite POSITIVE H Urine Bilirubin NEGATIVE Urine Urobilinogen 0.2 (NORMAL) Ur Leukocyte Esterase NEGATIVE Urine RBC 0-5 Urine WBC 0-3 Ur Squamous Epith Cells FEW Squamous Urine Crystals 0-2 Calcium Oxalate Urine Bacteria Few Urine Mucus Few Strands Ur Microscopic Review INDICATED Urine Culture Comments INDICATED Urine Opiates Screen NEGATIVE Ur Oxycodone Screen NEGATIVE Urine Methadone Screen NEGATIVE Ur Propoxyphene Screen NEGATIVE Ur Barbiturates Screen NEGATIVE Ur Tricyclics Screen NEGATIVE Ur Phencyclidine Scrn NEGATIVE Ur Amphetamine Screen NEGATIVE U Methamphetamines Scrn NEGATIVE U Benzodiazepines Scrn POSITIVE H Urine Cocaine Screen NEGATIVE U Cannabinoids Screen POSITIVE H Ethyl Alcohol 05/22/17 19:44 WBC RBC Hgb Hct MCV MCH MCHC RDW Plt Count MPV Manual Slide Review Sodium 143 Potassium 3.3 L Chloride 109 Carbon Dioxide 26 Anion Gap 8.0 BUN 17 Creatinine 0.6 Estimated GFR (MDRD) 105 Glucose 105 H Calcium 9.1 Total Bilirubin 0.3 AST 29 ALT 24 Alkaline Phosphatase 54 Total Protein 6.6 L Albumin 3.3 Globulin 3.3 Albumin/Globulin Ratio 1.0 Lipase 16 L Urine Color Urine Clarity Urine pH Ur Specific [place] Urine Protein Urine Glucose (UA) Urine Ketones Urine Occult Blood Urine Nitrite Urine Bilirubin Urine Urobilinogen Ur Leukocyte Esterase Urine RBC Urine WBC Ur Squamous Epith Cells Urine Crystals Urine Bacteria Urine Mucus Ur Microscopic Review Urine Culture Comments Urine Opiates Screen Ur Oxycodone Screen Urine Methadone Screen Ur Propoxyphene Screen Ur Barbiturates Screen Ur Tricyclics Screen Ur Phencyclidine Scrn Ur Amphetamine Screen U Methamphetamines Scrn U Benzodiazepines Scrn Urine Cocaine Screen U Cannabinoids Screen Ethyl Alcohol 7.1 PD MEDICAL DECISION MAKING - ED course ED course: 52-year-old woman presents with suicidal ideation, but also fevers and chills and was found to have a significantly elevated white count with positive urinalysis. As such it is unlikely any psychiatric placement will be available , I suspect most facilities would not take a patient with a 24,000 white count and pyelonephritis and as such the hospitalist was called for admission at 8:20 PM. Departure - Departure Disposition: 66 [facility] DC/Xfer Clinical Impression: Pyelonephritis, Suicidal ideation Schizoaffective disorder Qualifiers: Schizoaffective disorder type: unspecified Qualified Code(s): F25.9 - Schizoaffective disorder, unspecified Condition: Serious
[2017-05-22] MEDS ORDERED: LORazepam 0.5 MG TABLET PO STA (19:35)
[2017-05-22 19:45] LABS: BILIRUBIN,URINE NEGATIVE (NEGATIVE)
[2017-05-22 19:46] LABS: UA w/ MICROSCOPIC CHARGE YES
[2017-05-22 19:50] LABS: BASOPHILS # (AUTO) 0.1 10^3/uL (0.0-0.1); BASOPHILS % (AUTO) 0.4 %; HCT - HEMATOCRIT 38.8 % (37.0-47.0); HGB - HEMOGLOBIN 12.7 g/dL (12.0-16.0); LYMPHOCYTES % (AUTO) 20.2 %; MEAN CORPUSCULAR HEMOGLOBIN 30.3 pg (27.0-31.0); MEAN CORPUSCULAR HGB CONC 32.7 g/dL (32.0-36.0); MEAN CORPUSCULAR VOLUME 92.8 fL (81.0-99.0); MEAN PLATELET VOLUME 9.2 fL (7.9-10.8); MONOCYTES # (AUTO) 3.1 10^3/uL (0.0-1.0); MONOCYTES % (AUTO) 12.7 %; NEUTROPHILS # (AUTO) 16.5 10^3/uL (1.5-6.6); NEUTROPHILS % (AUTO) 66.7 %; RED BLOOD COUNT 4.18 10^6/uL (4.20-5.40); RED CELL DISTRIBUTION WIDTH 15.1 % (12.0-15.0); UNCORRECTED WHITE BLOOD COUNT 24.7 x10^3/uL; WHITE BLOOD COUNT 24.7 x10^3/uL (4.8-10.8)
[2017-05-22 19:54] LABS: UR CULTURE IF IND INDICATED; WBC,URINE 0-3 /HPF (0-5)
[2017-05-22] MEDS ORDERED: LORazepam 0.5 MG TABLET ONE (20:02)
[2017-05-22 20:04] LABS: BILIRUBIN,TOTAL 0.3 mg/dL (0.2-1.0); CALCIUM 9.1 mg/dL (8.5-10.3); CREATININE 0.6 mg/dL (0.4-1.0); POTASSIUM 3.3 mmol/L (3.5-5.0); TOTAL PROTEIN 6.6 g/dL (6.7-8.2)
[2017-05-22] MEDS ORDERED: CIPROFLOXACIN 400 MG/200 ML 200 ML IV ONE ×2 (20:05→20:36)
[2017-05-22] MEDS ORDERED: SODIUM CHLORIDE FLUSH 0.9% 10 ML SYRINGE IVP ONE (20:19)
[2017-05-22 20:27] LABS: PLATELET ESTIMATE, MANUAL NORMAL (130-450,000) (NORMAL); WBC MORPHOLOGY (MULTIPLE) NORMAL APPEARANCE (NORMAL)
[2017-05-22 20:42] LABS: NP AUTO DIFFERENTIAL? NO; NP MAN DIFFERENTIAL? YES
[2017-05-22] MEDS ORDERED: IPRATROPIUM/ALBUTEROL 3 ML NEB INH PRN (21:32)
[2017-05-22] MEDS ORDERED: SODIUM CHLORIDE FLUSH 0.9% 10 ML SYRINGE IVP PRN (21:34)
[2017-05-22] MEDS ORDERED: ONDANSETRON 4 MG/2 ML VIAL IVP PRN (21:34)
[2017-05-22] MEDS ORDERED: TEMAZEPAM 15 MG CAPSULE PO PRN (21:34)
[2017-05-22] MEDS ORDERED: LORazepam 2 MG/ML VIAL IVP PRN (21:54)
[2017-05-22] MEDS ORDERED: traZODone 50 MG TABLET PO PRN (22:52)
[2017-05-22] MEDS ORDERED: hydrOXYzine PAMOATE 25 MG CAPSULE PO PRN (22:52)
[2017-05-22] MEDS: SODIUM CHLORIDE FLUSH 0.9% 10 ML SYRINGE IVP SCH (23:08)
[2017-05-22] MEDS: LORazepam 2 MG/ML SYRINGE IVP PRN (23:08)
--- NOTE | 2017-05-22 23:40 | HISTORY & PHYSICAL EXAMINATION ---
DATE OF ADMISSION: 05/22/2017 CHIEF COMPLAINT: Suicidal ideation. HISTORY OF PRESENT ILLNESS: The patient is an unfortunate 52-year-old white female with past medical history of extensive psychiatric history with history of self-cutting and psychosis who presented to [facility] reporting suicidal ideation. In particular, she had some broken glass pieces at home and was planning on cutting her throat with those. She reported no physical complaint. In particular, she reported no dysuria, abdominal discomfort , no nausea, no vomiting. She had been wheezing when I examined her, but told me that she was not short of breath and her wheezing was her baseline being a daily smoker. The ER workup included laboratories which showed potassium of 3.3. White blood cell count 24.7. Urinalysis was reported being positive. However, on my review, although there was urine nitrate, there were few squamous epithelial cells and not much white blood cells. Toxicology screen was positive for benzodiazepines and cannabinoids. REVIEW OF SYMPTOMS: Please see pertinent positives and pertinent negatives listed at history of present illness. The patient did not report additional complaints on the 12-point review. Notably regarding her mental health problems , she did not tell me much, but she confirmed that she sees an outpatient therapist regularly. She takes multiple medications, which she did not list and told me the medications were listed online. Her suicidal ideation seemed not particularly different than usual and she did not complain of any trigger to decompensate her mentally. She, however, also reported that she thought that "people" were trying to kill her. PAST MEDICAL HISTORY: COPD, history of pneumonia, history of TIA, seizure disorder, type 2 diabetes, gastroesophageal reflux, mental health disorder with history of self-harm. PAST SURGICAL HISTORY: History of hysterectomy, cholecystectomy, splenectomy, appendectomy, shoulder surgery, and skin surgery. SOCIAL HISTORY: The patient smokes cigarettes. She denied alcohol use. She also smokes marijuana. 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 FAMILY HISTORY: Positive for mental health disorder in an uncle. The patient's father had premature coronary artery disease, before age 50. In the medical record, it also listed that her family history is positive for neurofibromatosis, breast cancer, and seizures as well. ALLERGIES: MULTIPLE ALLERGIES INCLUDING 1. HALDOL. 2. PENICILLIN. 3. SULFA. 4. IODINE. 5. ZITHROMAX. OUTPATIENT MEDICATIONS: Medication reconciliation is in progress. PHYSICAL EXAMINATION VITAL SIGNS: Temperature 97.1, heart rate between 70 and 80, blood pressure 120/ 70, respiratory rate 18, oxygen saturation 97% on room air. GENERAL: The patient is a well-developed, female who was not in distress. SKIN: Anicteric. MUSCULOSKELETAL: Atraumatic. Notably, there are multiple healed scars on the torso and on the arms as well, consistent with self-inflicted injuries. GASTROINTESTINAL: Obese, benign. Bowel tones present. Nontender. LYMPH: No lymphedema. CARDIOVASCULAR: S1, S2 regular. No pathologic murmur. RESPIRATORY: Diffuse expiratory wheezes bilaterally. No increased work of breathing. NEUROLOGIC: Neurologically alert, oriented, nonfocal. PSYCHIATRIC: Reporting suicidal ideation with a plan of cutting her throat with broken glass. Also, reporting paranoid ideation. At the same time of reporting these symptoms, the patient did not appear anxious or much affected. She talked about her mental health issues calmly and objectively. ER workup revealed per electronic medical record. ASSESSMENT AND PLAN/ACTIVE ISSUES/DIAGNOSES 1. Suicidal ideation, chronic psychosis, mental health issues. 2. Chronic obstructive pulmonary disease, appears chronic, with wheezing, but no significant worsening reported by the patient. Given that she had elevated white blood cell count and history of chronic obstructive pulmonary disease, also history of psychoactive medication use, she would have risk for pneumonia and aspiration as well. She might also have bronchitis. I reviewed recent medical record and there is a chest x-ray from May 11, 2017, which described atelectasis versus early infiltrate with patchy bibasilar opacities that will need to be followed up. 3. Positive urinalysis looks more of a contaminant with squamous epithelial cells, not much white blood cell, pending final result. Notably, the patient already received ciprofloxacin in the emergency room. 4. Leukocytosis/elevated white blood cell count. This could be secondary to outpatient steroid use if the patient had been on prednisone. At this point I have no information about that. Elevated white blood cell count could also be caused by an aspiration event or pneumonia. I doubt urinary tract infection would be the reason. Additional possibility is reactive leukocytosis. 5. Mild hypokalemia, potassium was already replaced from the emergency room. PLAN AND ORDERS 1. The patient is getting admitted as inpatient as she will need a one-to-one sitter and mental health evaluation for suicidal ideation. We will request mental health evaluation after medical conditions are addressed. 2. Electrolyte/potassium was replaced. 3. Regarding chronic obstructive pulmonary disease, I ordered scheduled nebulizers, small dose prednisone. Proton pump inhibitor for gastrointestinal prophylaxis. We will check a chest x-ray to rule out pneumonia. If chest x-ray does show worsening infiltrates then antibiotic coverage will be adjusted to cover for pneumonia. I felt actually Unasyn would have been a great option to cover both for pneumonia and possible urine infection. However, the patient is ALLERGIC TO PENICILLIN. 4. Regarding medications, I am awaiting a medication reconciliation; will address and continu outpatient medications. In the meantime, we will use Ativan for anxiety as needed. 5. Deep venous thrombosis prophylaxis. 6. Bowel prophylaxis in the setting of antibiotic use. 7. Regarding antimicrobial coverage, ciprofloxacin was started from the emergency room, and I will continue that for now until further information available on the workup. Notably, the patient has PENICILLIN ALLERGY WITH ANAPHYLAXIS. 8. Code status: FULL CODE. Time spent in the care of this patient was 65 minutes. JOB #: [id number] EXT JOB #:[id number] RAFAEL
[2017-05-23] MEDS ORDERED: MORPHINE 10 MG/ML VIAL IVP ONE (00:08)
[2017-05-23] MEDS ORDERED: MORPHINE 10 MG/ML VIAL IVP SCH (00:10)
--- NOTE | 2017-05-23 01:28 | XRAY Preliminary Report ---
Exam: XR Chest 2 View PA/LAT IMPRESSION: 1. Bronchial wall thickening. This can be seen with bronchitis or reactive airways disease. 2. Mild patchy bilateral opacities which could represent minimal pneumonia. [facility] SITE ID: [id number]
--- NOTE | 2017-05-23 01:31 | XRAY Report ---
EXAM: CHEST RADIOGRAPHY EXAM DATE: 05/22/2017 11:54 PM. CLINICAL HISTORY: Cough. COMPARISON: 05/11/2017. TECHNIQUE: 2 views. FINDINGS: Lungs/Pleura: Bronchial wall thickening. Mild patchy bilateral pulmonary opacities again seen. No ple ural effusion. No pneumothorax. Mediastinum: Heart and mediastinal contours are unremarkable. Other: None. IMPRESSION: 1. Bronchial wall thickening. This can be seen with bronchitis or reactive airways disease. 2. Mild patchy bilateral opacities which could represent minimal pneumonia. [facility] Referring Provider Line: [phone] SITE ID: [id number]
[2017-05-23] MEDS: LORazepam 2 MG/ML SYRINGE IVP PRN (03:38)
[2017-05-23 04:45] LABS: HEMOGLOBIN A1C 0.5 g/dL
[2017-05-23] MEDS: SUCRALFATE 1 GM/10 ML UDC PO SCH ×3 (06:13→16:08)
[2017-05-23] MEDS: SODIUM CHLORIDE FLUSH 0.9% 10 ML SYRINGE IVP SCH ×2 (06:18→14:08)
[2017-05-23] MEDS ORDERED: PANTOPRAZOLE 40 MG TABLET PO SCH (07:00)
[2017-05-23] MEDS ORDERED: predniSONE 20 MG TABLET PO SCH (08:00)
[2017-05-23] MEDS: INSULIN ASPART 300 UNIT/3 ML PEN SUBQ SCH ×3 (08:07→17:50)
[2017-05-23] MEDS: LACTOB/S.THERMOPHL/BIFIDO CAPSULE PO SCH ×2 (08:32→17:50)
[2017-05-23 08:49] LABS: BASOPHILS # (AUTO) 0.2 10^3/uL (0.0-0.1); BASOPHILS % (AUTO) 0.8 %; EOSINOPHILS # (AUTO) 0.1 10^3/uL (0.0-0.7); EOSINOPHILS % (AUTO) 0.2 %; HCT - HEMATOCRIT 41.6 % (37.0-47.0); HGB - HEMOGLOBIN 13.6 g/dL (12.0-16.0); LYMPHOCYTES # (AUTO) 7.3 10^3/uL (1.5-3.5); LYMPHOCYTES % (AUTO) 33.9 %; MEAN CORPUSCULAR HEMOGLOBIN 30.1 pg (27.0-31.0); MEAN CORPUSCULAR HGB CONC 32.7 g/dL (32.0-36.0); MONOCYTES # (AUTO) 2.3 10^3/uL (0.0-1.0); MONOCYTES % (AUTO) 10.6 %; NEUTROPHILS # (AUTO) 11.8 10^3/uL (1.5-6.6); NEUTROPHILS % (AUTO) 54.5 %; RED BLOOD COUNT 4.52 10^6/uL (4.20-5.40); RED CELL DISTRIBUTION WIDTH 15.5 % (12.0-15.0); UNCORRECTED WHITE BLOOD COUNT 22.8 x10^3/uL; WHITE BLOOD COUNT 21.7 x10^3/uL (4.8-10.8)
[2017-05-23] MEDS ORDERED: lamoTRIgine 25 MG TABLET PO SCH (09:00)
[2017-05-23] MEDS ORDERED: LORazepam 0.5 MG TABLET PO SCH (09:00)
[2017-05-23] MEDS ORDERED: NICOTINE 21 MG PATCH TOP SCH (09:00)
[2017-05-23] MEDS ORDERED: VERAPAMIL ER 180 MG TABLET PO SCH (09:00)
[2017-05-23] MEDS ORDERED: OLANZapine ODT 5 MG TABLET TL SCH (09:00)
[2017-05-23] MEDS ORDERED: levoFLOXacin 250 MG TABLET PO SCH ×2 (09:00)
[2017-05-23] MEDS ORDERED: ENOXAPARIN 40 MG/0.4 ML SYRINGE SUBQ SCH (09:00)
[2017-05-23] MEDS ORDERED: guaiFENesin 600 MG TABLET PO SCH (09:00)
[2017-05-23] MEDS ORDERED: DIVALPROEX ER 250 MG TABLET PO SCH ×2 (09:00→21:00)
[2017-05-23] MEDS ORDERED: POLYETHYLENE GLYCOL 3350 17 GM PACKET PO SCH (09:00)
[2017-05-23 09:20] LABS: NP AUTO DIFFERENTIAL? NO; NP MAN DIFFERENTIAL? YES
[2017-05-23 09:22] LABS: ALBUMIN/GLOBULIN RATIO 1.1 (1.0-2.2); BILIRUBIN,TOTAL 0.4 mg/dL (0.2-1.0); CALCIUM 8.7 mg/dL (8.5-10.3); CREATININE 0.8 mg/dL (0.4-1.0); POTASSIUM 3.9 mmol/L (3.5-5.0); TOTAL PROTEIN 6.3 g/dL (6.7-8.2)
--- NOTE | 2017-05-23 12:34 | Discharge Plan ---
Discharge Plan Disposition: [facility] Psych Hosp/Unit DC/Xfer Condition: Good Prescriptions: levoFLOXacin [Levaquin] 750 mg PO DAILY #5 tablet Lactob/S.thermophl/Bifido [Vsl#3] 1 cap PO BIDWM #10 capsule Diet: Regular Activity Restrictions: No Restrictions Shower Restrictions: No Driving Restrictions: No Weight Bearing: Full Weight Instruction Topics: COPD Additional Instructions or Follow Up instructions: Please continue to take all home medications as prescribed. You have been given a antibiotic Levaquin for possible pneumonia and bronchitis. Take for five days as prescribed. continue to use your inhaler for shortness of breath or as prescribed. You need to stop smoking if you continue to be short of breath. smoking cessation information has been given to you. Please continue to followup with your primary care provider for other health issues. You need to return to the ER if you have symptoms of chest pain, shortness of breath not relieved with inhaler and if you have fever, chills. You need to see mental health for additional concerns regarding your mental health. Continue to eat your regular diet and avoid alcohol while on psychiatric medications. Continue to get daily exercise, walking is a great form of exercise daily No Smoking: If you smoke, Please STOP! Call for help.
--- NOTE | 2017-05-23 12:50 | DISCHARGE SUMMARY ---
Discharge Summary Admit Date: 05/22/17 Discharge Date: 05/23/17 Discharging Provider: María Elena Mabry APRN Code Status: Attempt Resuscitation Condition at Discharge: Good Discharge Disposition: 65 Psych Hosp/Unit DC/Xfer Discharge Facility Name: [facility] - DIAGNOSES Admission Diagnoses: 1. Acute suicide ideation with a plan 2. Acute on chronic schizoaffective disorder with suicide ideation with a plan 3. Chronic leukocytosis with chronic steroid usage 4. Obesity with BMI>35 with excessive caloric intake 5. Chronic intermittent asthma without exacerbation Discharge Diagnoses with Status of Each Condition: 1. Acute suicide ideation with a plan 2. Acute on chronic schizoaffective disorder with suicide ideation with a plan 3. Chronic leukocytosis with chronic steroid usage 4. Obesity with BMI>35 with excessive caloric intake 5. Chronic intermittent asthma without exacerbation . - HPI History of Present Illness: Patient is a 52 year old obese female with longstanding psychiatric history that presented to the ER with complaint of suicide ideation with thoughts of cutting her throat. - CONSULTS | PROCEDURES Consultations: mental health and social work case manager Procedures: none - HOSPITAL COURSE Hospital Course: Patient is a 52 year old obese female who presented to the ER with complaints of suicide ideation and thoughts of cutting her throat. She has underlying schizoaffective disorder. She was admitted with elevated WBC. This was chronic and she has been on steroid dexamethasone for asthma. She has been taking both the steroid and her inhaler as scheduled. She had no shortness of breath or chest pain or exacerbation. The ER provider was told he could not clear the patient to go to [facility] due to the elevated WBC. Once patient was cleared with a chest xray and not symptomatic for asthma, she was able to me evaluated outpatient at [facility]. Patient had no fever, no cough and oxygen saturation was stable about 92%. She was treated with depakote for her seizure disorder and monitored 1:1 for her suicide ideation. Patient was cleared the next morning to be transferred to [facility] for treatment for SI with a plan. She had normal vital signs and remained on all home medication. She did have an abnormal urinalysis that could have been contaminated so patient was given Levaquin for chronic bronchitis and possible UTI. - ALLERGIES Allergies/Adverse Reactions: Allergies Allergy/AdvReac Type Severity Reaction Status Date / Time azithromycin Allergy Severe Hives Verified 05/21/17 15:46 haloperidol Allergy Severe Anaphylaxis Verified 05/21/17 15:46 Penicillins Allergy Severe Anaphylaxis Verified 05/21/17 15:46 amoxicillin [Amoxicillin] Allergy Intermediate Rash Verified 05/21/17 15:46 grapefruit Allergy Intermediate Rash Verified 05/21/17 15:46 iodine Allergy Intermediate Rash Verified 05/21/17 15:46 Sulfa (Sulfonamide Allergy Intermediate Rash Verified 05/21/17 15:46 Antibiotics) haloperidol lactate * AdvReac Rash Verified 05/21/17 15:46 [From Haldol] - MEDICATIONS Home Medications: Ambulatory Orders Medication Instructions Recorded Confirmed Verapamil ER [Calan SA] 180 mg PO DAILY 03/25/16 05/22/17 Lamotrigine 75 mg PO DAILY 06/20/16 05/22/17 Olanzapine 10 mg PO BID 06/20/16 05/22/17 Omeprazole [PriLOSEC] 20 mg PO BIDAC 06/20/16 05/22/17 Albuterol Sulf [Ventolin Hfa 2 puffs INH Q4H PRN 12/25/16 05/22/17 Inhaler] Divalproex ER [Depakote ER] 1,250 mg PO QPM 12/25/16 05/22/17 Divalproex ER [Depakote ER] 750 mg PO DAILY 12/25/16 05/22/17 Famotidine 20 mg PO DAILY 12/25/16 05/22/17 Lorazepam 0.5 mg PO DAILY 12/25/16 05/22/17 Rizatriptan Benzoate [Rizatriptan] 10 mg PO ONCE PRN 12/25/16 05/22/17 Thioridazine HCl 50 mg PO BID PRN 12/25/16 05/22/17 Trazodone HCl 100 - 200 mg PO QPM PRN 12/25/16 05/22/17 Sucralfate 1 gm PO ACHS #90 tablet 01/20/17 05/22/17 Promethazine [Phenergan] 25 mg PO Q6H PRN #10 tab 03/19/17 05/22/17 Dexamethasone [Decadron] 4 mg PO DAILY #5 tablet 05/11/17 05/22/17 Aripiprazole 10 mg PO DAILY 05/23/17 05/23/17 Bupropion HCl [Bupropion HCl Sr] 150 mg PO Q12H 05/23/17 05/23/17 Lactob/S.thermophl/Bifido [Vsl#3] 1 cap PO BIDWM #10 capsule 05/23/17 Prazosin HCl 4 mg PO Q12H 05/23/17 05/23/17 chlorproMAZINE [Thorazine] 25 mg PO Q6H PRN 05/23/17 05/23/17 levoFLOXacin [Levaquin] 750 mg PO DAILY #5 tablet 05/23/17 - PHYSICAL EXAM AT DISCHARGE General Appearance: positive: No acute distress, Alert Eyes Bilateral: positive: Normal inspection, PERRL, EOMI ENT: positive: ENT inspection nml, Pharynx nml, No signs of dehydration Neck: positive: Nml inspection, Thyroid nml, No JVD, Trachea midline Respiratory: positive: Chest non-tender, No respiratory distress, Breath sounds nml Cardiovascular: positive: Regular rate & rhythm, No murmur, No gallop Peripheral Pulses: positive: 2+ Abdomen: positive: Non-tender, No organomegaly, Nml bowel sounds, No distention Rectal: positive: Non-tender Back: positive: Nml inspection Skin: positive: Color nml, No rash, Warm, Dry Extremities: positive: Non-tender, Full ROM, Nml appearance, No pedal edema Neurologic/Psychiatric: positive: Oriented x3, CN's nml (2-12), Motor nml, Sensation nml, Other (still expessing thoughts about hurting herself and "slitting her throat". mental health contacted) Physical Exam Other/Comments: Patient is cleared medically. she has been taking steroids, dexamethasone at home and the elevation in her white blood count is contributed to this. She has no signs of shortness of breath, fever or chills. No productive cough or signs of pneumonia. She is a smoker and has COPD and brochitis and at risk for pneumonia so patient was started on Levaquin inpatient and to continue for five day at home. She has inhaler for SOB PRN. She is only to be released to mental health services. She does live at [facility] in a mental care facility. - LABS Result Diagrams: 05/23/17 08:30 05/23/17 08:30 - DIAGNOSTIC IMAGING Diagnostic Imaging Results: Final report reviewed - FOLLOW UP Follow Up: Shaunna with [facility] contacted regarding discharge back to home. Pending discharge if patient has appointment with mental health today since she cannot be safely discharged expressing thoughts of hurting herself. - TIME SPENT Time Spent in Discharge (Minutes): 40 (planning and assessment)
[2017-05-23 19:45] VITALS: BP 120/82
[2017-05-23] MEDS ORDERED: PRAZOSIN 1 MG CAPSULE PO SCH (21:00)
== END 2017-05-23 18:27 | DRG 880 ==
LOC: EDUNIT# → ED 18:51 → MS3 21:34
PROVIDERS: ADMIT Internal Medicine; ATTEND Nurse Practitioner
DX: N12 Tubulo-interstitial nephritis, not specified as acute or chronic (principal); R45.851 Suicidal ideations; N39.0 Urinary tract infection, site not specified; F25.9 Schizoaffective disorder, unspecified; J44.9 Chronic obstructive pulmonary disease, unspecified; T38.0X5S Adverse effect of glucocorticoids and synthetic analogues, sequela; D72.828 Other elevated white blood cell count; K44.9 Diaphragmatic hernia without obstruction or gangrene; E87.6 Hypokalemia; E66.9 Obesity, unspecified; F17.200 Nicotine dependence, unspecified, uncomplicated; Z68.35 Body mass index [BMI] 35.0-35.9, adult; J45.909 Unspecified asthma, uncomplicated; F17.210 Nicotine dependence, cigarettes, uncomplicated; G40.909 Epilepsy, unspecified, not intractable, without status epilepticus; E11.9 Type 2 diabetes mellitus without complications; K21.9 Gastro-esophageal reflux disease without esophagitis; Z79.51 Long term (current) use of inhaled steroids; Z79.52 Long term (current) use of systemic steroids; Z79.899 Other long term (current) drug therapy; Z87.01 Personal history of pneumonia (recurrent); Z86.73 Personal history of transient ischemic attack (TIA), and cerebral infarction without residual deficits; Z91.5 Personal history of self-harm
CPT/HCPCS: 36415; 71020; 80053; 80164; 80306; 80320; 81001; 81003; 83036; 83605; 83690; 83735; 84100; 85025; 87040; 87077; 87086; 96365; 99284; 99285

== ENCOUNTER 2017-06-08 21:50 | Outpatient (CLI) | payer MEDICARE, MEDICAID | END 2017-06-08 21:51 | disposition EMS.NT | LOC: EMS 21:50 | PROVIDERS: ATTEND Surgery | DX: T17.928A Food in respiratory tract, part unspecified causing other injury, initial encounter (principal) ==

== ENCOUNTER 2017-06-24 20:50 | Outpatient (CLI) | payer MEDICARE, MEDICAID | END 2017-06-24 20:51 | disposition critical access hospital (66) | LOC: EMS 20:50 | PROVIDERS: ATTEND Surgery | DX: M54.5 Low back pain (principal) ==

== ENCOUNTER 2017-06-25 22:15 | Outpatient (CLI) | payer MEDICARE, MEDICAID | END 2017-06-25 22:16 | disposition critical access hospital (66) | LOC: EMS 22:15 | PROVIDERS: ATTEND Surgery | DX: M54.9 Dorsalgia, unspecified (principal); R05 Cough | CPT/HCPCS: A0425; A0429 ==

== ENCOUNTER 2017-06-25 22:32 | Emergency (ER) | payer MEDICARE, MEDICAID ==
--- NOTE | 2017-06-26 00:58 | ED Physician Documentation ---
PD HPI BACK PAIN - Stated complaint Stated Complaint: BACK PAIN - Chief complaint Chief Complaint: Back Pain - History obtained from History obtained from: Patient - History of Present Illness Timing - onset: How many weeks ago (1) Timing - details: Abrupt onset Pain level now: 8 Location: Lower, Right, Left Quality: Pain Associated symptoms: No: Weakness, Numbness, Incontinent of urine, Unable to urinate Improves with: Rest Worsened by: Movement Recently seen: Emergency Dept (patient is well known to this ED; she has had 1- 3 visits each month of this year including 3 ED visits last month) - Additional information Additional information: patient says she fell out of bed 1 week ago which exacerbated her chronic low back pain. She says she was seen by her primary care provider and prescriptions were written but that she has not yet received these medications (which are to be delivered). Review of Systems Cardiac: denies: Chest pain / pressure Respiratory: reports: Dyspnea, Wheezing. denies: Cough Musculoskeletal: reports: Back pain Neurologic: reports: Focal weakness, Numbness PD PAST MEDICAL HISTORY - Past Medical History Past Medical History: Yes Cardiovascular: Other Respiratory: COPD, Pneumonia Neuro: TIA, Seizure disorder Endocrine/Autoimmune: Type 2 diabetes GI: GERD, Hiatal hernia PASSENGER CONDUCTOR: None : None HEENT: None Psych: Depression, Schizophrenia, Post traumatic stress disorder Musculoskeletal: None Derm: None - Past Surgical History Past Surgical History: Yes General: Bowel surgery Ortho: Other /PASSENGER CONDUCTOR: 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 HEENT: Cataracts - Present Medications Home Medications: Ambulatory Orders Medication Instructions Recorded Confirmed Verapamil ER [Calan SA] 180 mg PO DAILY 03/25/16 05/22/17 Lamotrigine 75 mg PO DAILY 06/20/16 05/22/17 Olanzapine 10 mg PO BID 06/20/16 05/22/17 Omeprazole [PriLOSEC] 20 mg PO BIDAC 06/20/16 05/22/17 Albuterol Sulf [Ventolin Hfa 2 puffs INH Q4H PRN 12/25/16 05/22/17 Inhaler] Divalproex ER [Depakote ER] 1,250 mg PO QPM 12/25/16 05/22/17 Divalproex ER [Depakote ER] 750 mg PO DAILY 12/25/16 05/22/17 Famotidine 20 mg PO DAILY 12/25/16 05/22/17 Lorazepam 0.5 mg PO DAILY 12/25/16 05/22/17 Rizatriptan Benzoate [Rizatriptan] 10 mg PO ONCE PRN 12/25/16 05/22/17 Thioridazine HCl 50 mg PO BID PRN 12/25/16 05/22/17 Trazodone HCl 100 - 200 mg PO QPM PRN 12/25/16 05/22/17 Sucralfate 1 gm PO ACHS #90 tablet 01/20/17 05/22/17 Promethazine [Phenergan] 25 mg PO Q6H PRN #10 tab 03/19/17 05/22/17 Dexamethasone [Decadron] 4 mg PO DAILY #5 tablet 05/11/17 05/22/17 Aripiprazole 10 mg PO DAILY 05/23/17 05/23/17 Bupropion HCl [Bupropion HCl Sr] 150 mg PO Q12H 05/23/17 05/23/17 Lactob/S.thermophl/Bifido [Vsl#3] 1 cap PO BIDWM #10 capsule 05/23/17 Prazosin HCl 4 mg PO Q12H 05/23/17 05/23/17 chlorproMAZINE [Thorazine] 25 mg PO Q6H PRN 05/23/17 05/23/17 levoFLOXacin [Levaquin] 750 mg PO DAILY #5 tablet 05/23/17 - Allergies Allergies/Adverse Reactions: Allergies Allergy/AdvReac Type Severity Reaction Status Date / Time azithromycin Allergy Severe Hives Verified 06/25/17 22:42 haloperidol Allergy Severe Anaphylaxis Verified 06/25/17 22:42 Penicillins Allergy Severe Anaphylaxis Verified 06/25/17 22:42 amoxicillin [Amoxicillin] Allergy Intermediate Rash Verified 06/25/17 22:42 grapefruit Allergy Intermediate Rash Verified 06/25/17 22:42 iodine Allergy Intermediate Rash Verified 06/25/17 22:42 Sulfa (Sulfonamide Allergy Intermediate Rash Verified 06/25/17 22:42 Antibiotics) haloperidol lactate * AdvReac Rash Verified 06/25/17 22:42 [From Haldol] - Social History Does the pt smoke?: Yes Smoking Status: Current every day smoker Does the pt drink ETOH?: No Does the pt have substance abuse?: No Substance Use and Type: Marijuana - Immunizations Immunizations are current?: No Immunizations: TDAP >10years/unknown - POLST Patient has POLST: No PD ED PE NORMAL - Vitals Vital signs reviewed: Yes - General General: Alert and oriented X 3, No acute distress, Well developed/nourished - Cardiac Cardiac: RRR, No murmur - Respiratory Respiratory: No respiratory distress - Back Back: No CVA TTP, No spinal TTP - Derm Derm: Normal color, Warm and dry PD ED PE EXPANDED - Respiratory Respiratory: Wheezing Results - Vitals Vitals: Vital Signs - 24 hr 06/25/17 06/26/17 22:40 01:50 Temperature 36.3 C L Heart Rate 76 80 Respiratory 18 18 Rate Blood Pressure 122/80 124/84 H O2 Saturation 95 95 Oxygen O2 Source [With Activity] Room air O2 Source [Without Activity] Room air O2 Source Room air PD MEDICAL DECISION MAKING - ED course Complexity details: reviewed old records, considered differential, d/w patient ED course: Given 2 tablets vicodin in ED. No prescription provided for this; I explained to her that due to the frequency of visits, I would not feel comfortable with providing an rx. As with previous visits when I have taken care of this patient , she did not bargain or argue regarding this. She had significant wheezing on exam, offered neb treatment, but she says she would prefer to go home and use her neb at home. I did provide a dose of prednisone prior to d/c Departure - Departure Disposition: 01 Home, Self Care Clinical Impression: Back pain Qualifiers: Back pain location: low back pain Chronicity: chronic Back pain laterality: bilateral Sciatica presence: without sciatica Qualified Code(s): M54.5 - Low back pain Condition: Good Instructions: ED Low Back Pain Injury Follow-Up: María Elena Ponce MD [Primary Care Provider] - Discharge Date/Time: 06/26/17 01:51
[2017-06-26] MEDS ORDERED: predniSONE 20 MG TABLET PO STA (01:14)
[2017-06-26] MEDS ORDERED: HYDROcod/ACETAM 5/325 MG TABLET PO STA (01:14)
[2017-06-26] MEDS ORDERED: HYDROcod/ACETAM 5/325 MG TABLET ONE (01:26)
[2017-06-26] MEDS ORDERED: predniSONE 20 MG TABLET ONE (01:26)
[2017-06-26 01:50] VITALS: BP 124/84
== END 2017-06-26 01:51 | disposition home or self-care (01) ==
LOC: EDUNIT# → ED 22:32
DX: M54.5 Low back pain (principal); J44.9 Chronic obstructive pulmonary disease, unspecified; E11.9 Type 2 diabetes mellitus without complications; F17.200 Nicotine dependence, unspecified, uncomplicated; Z86.73 Personal history of transient ischemic attack (TIA), and cerebral infarction without residual deficits; Z91.81 History of falling
CPT/HCPCS: 99283; A9270; J7512

== ENCOUNTER 2017-07-10 23:00 | Emergency (ER) | payer MEDICARE, MEDICAID ==
--- NOTE | 2017-07-10 23:15 | ED Physician Documentation ---
History of Present Illness - Stated complaint Stated Complaint: FLU LIKE SYMPT - Chief complaint Chief Complaint: General - History obtained from History obtained from: Patient, EMS - History of Present Illness Timing: How many weeks ago (1) Improved by: no ameliorating factors Worsened by: no exacerbating factors - Additonal information Additional information: c/o 1 week of cough, N/V/D, bilateral sinus congestion (points to both maxillary and frontal sinuses). symptoms worsening despite completing course of levaquin. also using tessalon and robitusson AC with minimal relief Review of Systems Constitutional: reports: Chills, Fatigue, Sweats. denies: Fever Cardiac: reports: Reviewed and negative Respiratory: reports: Dyspnea, Cough, Wheezing GI: reports: Nausea, Vomiting, Diarrhea. denies: Abdominal Pain : denies: Dysuria PD PAST MEDICAL HISTORY - Past Medical History Past Medical History: Yes - Present Medications Home Medications: Ambulatory Orders Medication Instructions Recorded Confirmed Verapamil ER [Calan SA] 180 mg PO DAILY 03/25/16 05/22/17 Lamotrigine 75 mg PO DAILY 06/20/16 05/22/17 OLANZapine [Olanzapine] 10 mg PO BID 06/20/16 05/22/17 Omeprazole [PriLOSEC] 20 mg PO BIDAC 06/20/16 05/22/17 Albuterol Sulf [Ventolin Hfa 2 puffs INH Q4H PRN 12/25/16 05/22/17 Inhaler] Divalproex ER [Depakote ER] 1,250 mg PO QPM 12/25/16 05/22/17 Divalproex ER [Depakote ER] 750 mg PO DAILY 12/25/16 05/22/17 Famotidine 20 mg PO DAILY 12/25/16 05/22/17 Lorazepam 0.5 mg PO DAILY 12/25/16 05/22/17 Rizatriptan Benzoate [Rizatriptan] 10 mg PO ONCE PRN 12/25/16 05/22/17 Thioridazine HCl 50 mg PO BID PRN 12/25/16 05/22/17 Trazodone HCl 100 - 200 mg PO QPM PRN 12/25/16 05/22/17 Sucralfate 1 gm PO ACHS #90 tablet 01/20/17 05/22/17 Promethazine [Phenergan] 25 mg PO Q6H PRN #10 tab 03/19/17 05/22/17 Dexamethasone [Decadron] 4 mg PO DAILY #5 tablet 05/11/17 05/22/17 ARIPiprazole [Aripiprazole] 10 mg PO DAILY 05/23/17 05/23/17 Bupropion HCl [Bupropion HCl Sr] 150 mg PO Q12H 05/23/17 05/23/17 Lactob/S.thermophl/Bifido [Vsl#3] 1 cap PO BIDWM #10 capsule 05/23/17 Prazosin HCl 4 mg PO Q12H 05/23/17 05/23/17 chlorproMAZINE [Thorazine] 25 mg PO Q6H PRN 05/23/17 05/23/17 levoFLOXacin [Levaquin] 750 mg PO DAILY #5 tablet 05/23/17 Cephalexin [Keflex] 500 mg PO Q6HR #27 capsule 07/11/17 predniSONE [Prednisone] 40 mg PO DAILY 3 Days #6 tablet 07/11/17 - Allergies Allergies/Adverse Reactions: Allergies Allergy/AdvReac Type Severity Reaction Status Date / Time azithromycin Allergy Severe Hives Verified 06/25/17 22:42 haloperidol Allergy Severe Anaphylaxis Verified 06/25/17 22:42 Penicillins Allergy Severe Anaphylaxis Verified 06/25/17 22:42 amoxicillin [Amoxicillin] Allergy Intermediate Rash Verified 06/25/17 22:42 grapefruit Allergy Intermediate Rash Verified 06/25/17 22:42 iodine Allergy Intermediate Rash Verified 06/25/17 22:42 Sulfa (Sulfonamide Allergy Intermediate Rash Verified 06/25/17 22:42 Antibiotics) haloperidol lactate * AdvReac Rash Verified 06/25/17 22:42 [From Haldol] - Social History Does the pt smoke?: Yes Smoking Status: Current every day smoker PD ED PE NORMAL - Vitals Vital signs reviewed: Yes - General General: Alert and oriented X 3, No acute distress, Well developed/nourished - HEENT HEENT: Pharynx benign - Neck Neck: Supple, no meningeal sign - Cardiac Cardiac: RRR, No murmur - Respiratory Respiratory: No respiratory distress - Derm Derm: Normal color, Warm and dry - Extremities Extremities: No edema PD ED PE EXPANDED - Respiratory Respiratory: Wheezing, Decreased breath sounds Results - Vitals Vitals: Vital Signs - 24 hr 07/11/17 00:51 Heart Rate 90 Respiratory 20 Rate Blood Pressure 140/70 H O2 Saturation 94 Oxygen O2 Source [With Activity] Room air O2 Source [Without Activity] Room air O2 Source Room air - Labs Labs: Laboratory Tests 07/11/17 00:03 Influenza A (Rapid) Negative Influenza B (Rapid) Negative Influenza Types A,B Ag - - Rads (name of study) chest xray Radiology: Prelim report reviewed, See rad report PD MEDICAL DECISION MAKING - ED course Complexity details: reviewed results, re-evaluated patient, considered differential, d/w patient Departure - Departure Disposition: 01 Home, Self Care Clinical Impression: Sinusitis, Pneumonia Condition: Good Instructions: ED Pneumonia Adult, ED Sinusitis Abx Tx Follow-Up: María Elena Ponce MD [Primary Care Provider] - Within 1 week Prescriptions: Cephalexin [Keflex] 500 mg PO Q6HR #27 capsule predniSONE [Prednisone] 40 mg PO DAILY 3 Days #6 tablet Discharge Date/Time: 07/11/17 01:00
[2017-07-10] MEDS ORDERED: predniSONE 20 MG TABLET PO STA (23:49)
[2017-07-11] MEDS ORDERED: predniSONE 20 MG TABLET ONE
--- NOTE | 2017-07-11 00:27 | XRAY Preliminary Report ---
Exam: XR CHEST 2 VIEW PA/LAT IMPRESSION: 1. Peribronchial cuffing concerning for bronchitis or reactive airways disease. 2. Hazy groundglass densities at the bases worse on the left than on the right could represent develo ping infiltrates. No large effusions or pneumothorax. [facility] SITE ID: [id number]
[2017-07-11] MEDS ORDERED: cephALEXin 250 MG CAPSULE PO STA (00:41)
--- NOTE | 2017-07-11 00:49 | XRAY Report ---
EXAM: CHEST RADIOGRAPHY EXAM DATE: 07/11/2017 12:07 AM. CLINICAL HISTORY: Cough, dyspnea. COMPARISON: 05/22/2017. TECHNIQUE: 2 views. FINDINGS: Lungs/Pleura: Patchy ground-glass opacities are noted in both lower lobes worse on the left than on t he right. No large effusions or pneumothorax. Moderate peribronchial cuffing is present. Mediastinum: Heart and mediastinal contours are unremarkable. Other: Right upper quadrant surgical clips noted. IMPRESSION: 1. Peribronchial cuffing concerning for bronchitis or reactive airways disease. 2. Hazy ground-glass densities at the bases worse on the left than on the right could represent devel oping infiltrates. No large effusions or pneumothorax. [facility] Referring Provider Line: [phone] SITE ID: [id number]
[2017-07-11 00:51] VITALS: BP 140/70
[2017-07-11] MEDS ORDERED: cephALEXin 250 MG CAPSULE PO ONE (00:53)
== END 2017-07-11 01:00 | disposition home or self-care (01) ==
LOC: EDUNIT# → EDBD → ED 23:00
DX: J32.9 Chronic sinusitis, unspecified (principal); J18.9 Pneumonia, unspecified organism; F17.200 Nicotine dependence, unspecified, uncomplicated
CPT/HCPCS: 71020; 87275; 87276; 99283; 99284

== ENCOUNTER 2017-08-23 09:27 | Outpatient (CLI) | payer MEDICARE, MEDICAID ==
--- NOTE | 2017-08-24 12:08 | Ultrasound Report ---
EXAMINATION: Right breast ultrasound. 08/23/2017 CLINICAL INDICATION: Palpable abnormality, right outer breast. TECHNIQUE: Real-time scanning was performed with food service representative static images obtained. FINDINGS: Ultrasound of the palpable region identified by the patient was performed. Heterogeneous parenchyma is seen. No discrete solid or cystic mass is identified. No sonographically suspicious findings are appreciated. IMPRESSION: Negative examination. RECOMMENDATIONS: Routine annual screening unless otherwise clinically indicated. BIRADS 1 - Negative. MTDD
--- NOTE | 2017-08-29 06:45 | Mammography Report ---
EXAM: DIAGNOSTIC BILATERAL MAMMOGRAM 08/23/2017. CLINICAL INDICATION: Palpable abnormality right breast, family history of breast cancer. TECHNIQUE: Bilateral CC and MLO views, right true lateral view. A marker was placed at the site of palpable abnormality identified by the patient in the right upper outer breast. COMPARISON: 04/20/2015, 04/02/2015, 02/09/2012. FINDINGS: The breasts again demonstrate heterogeneously dense fibroglandular parenchyma bilaterally. Coarse and punctate, typically benign calcifications are present. No suspicious masses, clustered microcalcifications, or regions of architectural distortion are identified. Specifically, no mammographic abnormality is appreciated in the outer right breast, at the site of palpable abnormality indicated by the patient. Please also refer to right breast ultrasound of the same day. IMPRESSION: Benign findings. RECOMMENDATIONS: Routine annual screening unless otherwise clinically indicated. BI RADS category 2 - Benign findings. STANDARD QUALIFYING STATEMENTS 1. This examination was reviewed with the aid of Computer-Aided Detection (CAD). 2. A negative or benign imaging report should not delay biopsy if clinically suspicious findings are present. Consider surgical consultation if warranted. More than 5% of cancers are not identified by imaging. 3. Dense breasts may obscure an underlying neoplasm. TD: 08/23/2017 19:50 RAFAEL
== END 2017-08-23 09:28 | disposition home or self-care (01) ==
LOC: DI 09:27
PROVIDERS: ATTEND Internal Medicine
DX: N63.11 Unspecified lump in the right breast, upper outer quadrant (principal); N63.13 Unspecified lump in the right breast, lower outer quadrant
CPT/HCPCS: 76642; G0204; 77066

== ENCOUNTER 2017-09-17 21:10 | Outpatient (CLI) | payer MEDICARE, MEDICAID | END 2017-09-17 21:11 | disposition critical access hospital (66) | LOC: EMS 21:10 | PROVIDERS: ATTEND Surgery | DX: R06.02 Shortness of breath (principal); R07.89 Other chest pain | CPT/HCPCS: A0425; A0427 ==

== ENCOUNTER 2017-09-17 21:29 | Emergency (ER) | payer MEDICARE, MEDICAID ==
[2017-09-17] MEDS ORDERED: IPRATROPIUM/ALBUTEROL 3 ML NEB INH STA (21:33)
[2017-09-17] MEDS ORDERED: predniSONE 20 MG TABLET PO STA (21:33)
--- NOTE | 2017-09-17 21:43 | ED Physician Documentation ---
PD HPI DYSPNEA - Stated complaint Stated Complaint: SOA,COUGH, CHEST TIGHTNESS - Chief complaint Chief Complaint: Resp - History obtained from History obtained from: Patient, EMS - History of Present Illness Timing - onset: How many days ago (2) Timing - details: Gradual onset Inciting event(s): Out of meds Improved by: O2, Inhaler/neb Worsened by: Exertion, Coughing Associated symptoms: Fever, Cough, Wheezing Similar symptoms before: Work up / diagnostics, Treatment Recently seen: Not recently seen - Additional information Additional information: Patient is a 52 year old female with a history of copd who is presenting to the emergency department for shortness of breath and cough. ptient states that the symptoms have been going on for the last few days. patient states that at times she gets fevers and is worried that she might have pneumonia. Review of Systems Constitutional: reports: Fever, Chills Eyes: denies: Decreased vision, Photophobia Ears: reports: Reviewed and negative Nose: reports: Reviewed and negative Throat: reports: Reviewed and negative Cardiac: denies: Chest pain / pressure Respiratory: reports: Dyspnea, Cough, Wheezing GI: denies: Nausea, Vomiting : reports: Reviewed and negative Musculoskeletal: reports: Reviewed and negative Neurologic: reports: Reviewed and negative Psychiatric: reports: Reviewed and negative Immunocompromised: denies: Immunocompromised PD PAST MEDICAL HISTORY - Past Medical History Cardiovascular: Other Respiratory: COPD, Pneumonia Neuro: TIA, Seizure disorder Endocrine/Autoimmune: Type 2 diabetes GI: GERD, Hiatal hernia PHARMACEUTICAL SERVICE REPRESENTATIVE: None : None HEENT: None Psych: Depression, Schizophrenia, Post traumatic stress disorder Musculoskeletal: None Derm: None - Past Surgical History Past Surgical History: Yes General: Bowel surgery Ortho: Other /PHARMACEUTICAL SERVICE REPRESENTATIVE: 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 HEENT: Cataracts - Present Medications Home Medications: Ambulatory Orders Medication Instructions Recorded Confirmed Verapamil ER [Calan SA] 180 mg PO DAILY 03/25/16 05/22/17 Lamotrigine 75 mg PO DAILY 06/20/16 05/22/17 OLANZapine [Olanzapine] 10 mg PO BID 06/20/16 05/22/17 Omeprazole [PriLOSEC] 20 mg PO BIDAC 06/20/16 05/22/17 Albuterol Sulf [Ventolin Hfa 2 puffs INH Q4H PRN 12/25/16 05/22/17 Inhaler] Divalproex ER [Depakote ER] 1,250 mg PO QPM 12/25/16 05/22/17 Divalproex ER [Depakote ER] 750 mg PO DAILY 12/25/16 05/22/17 Famotidine 20 mg PO DAILY 12/25/16 05/22/17 Lorazepam 0.5 mg PO DAILY 12/25/16 05/22/17 Rizatriptan Benzoate [Rizatriptan] 10 mg PO ONCE PRN 12/25/16 05/22/17 Thioridazine HCl 50 mg PO BID PRN 12/25/16 05/22/17 Trazodone HCl 100 - 200 mg PO QPM PRN 12/25/16 05/22/17 Sucralfate 1 gm PO ACHS #90 tablet 01/20/17 05/22/17 Promethazine [Phenergan] 25 mg PO Q6H PRN #10 tab 03/19/17 05/22/17 Dexamethasone [Decadron] 4 mg PO DAILY #5 tablet 05/11/17 05/22/17 ARIPiprazole [Aripiprazole] 10 mg PO DAILY 05/23/17 05/23/17 Bupropion HCl [Bupropion HCl Sr] 150 mg PO Q12H 05/23/17 05/23/17 Lactob/S.thermophl/Bifido [Vsl#3] 1 cap PO BIDWM #10 capsule 05/23/17 Prazosin HCl 4 mg PO Q12H 05/23/17 05/23/17 chlorproMAZINE [Thorazine] 25 mg PO Q6H PRN 05/23/17 05/23/17 Cephalexin [Keflex] 500 mg PO Q6HR #27 capsule 07/11/17 predniSONE [Prednisone] 40 mg PO DAILY 5 Days tablet 09/17/17 - Allergies Allergies/Adverse Reactions: Allergies Allergy/AdvReac Type Severity Reaction Status Date / Time azithromycin Allergy Severe Hives Verified 09/17/17 21:36 haloperidol Allergy Severe Anaphylaxis Verified 09/17/17 21:36 Penicillins Allergy Severe Anaphylaxis Verified 09/17/17 21:36 amoxicillin [Amoxicillin] Allergy Intermediate Rash Verified 09/17/17 21:36 grapefruit Allergy Intermediate Rash Verified 09/17/17 21:36 iodine Allergy Intermediate Rash Verified 09/17/17 21:36 Sulfa (Sulfonamide Allergy Intermediate Rash Verified 09/17/17 21:36 Antibiotics) haloperidol lactate * AdvReac Rash Verified 09/17/17 21:36 [From Haldol] - Social History Does the pt smoke?: Yes Smoking Status: Current every day smoker Does the pt drink ETOH?: No Does the pt have substance abuse?: No - Immunizations Immunizations are current?: No Immunizations: TDAP >10years/unknown - POLST Patient has POLST: No PD ED PE NORMAL - Vitals Vital signs reviewed: Yes - General General: Alert and oriented X 3, No acute distress, Well developed/nourished - HEENT HEENT: Atraumatic, PERRL - Neck Neck: Supple, no meningeal sign, No JVD - Cardiac Cardiac: RRR, No murmur - Abdomen Abdomen: Soft, Non tender, Non distended - Derm Derm: Normal color, Warm and dry, No rash - Extremities Extremities: No deformity, Normal ROM s pain, No calf tenderness / cord - Neuro Neuro: Alert and oriented X 3, No motor deficit, No sensory deficit, Normal speech Eye Opening: Spontaneous Motor: Obeys Commands Verbal: Oriented GCS Score: 15 - Psych Psych: Normal mood PD ED PE EXPANDED - HEENT HEENT: Dry mucous membranes - Respiratory Respiratory: Wheezing, Right upper lobe, Right middle lobe, Right lower lobe, Left upper lobe, Left lower lobe. No: Gasping, Accessory mm use Results - Vitals Vitals: Vital Signs - 24 hr 09/17/17 09/17/17 21:30 22:10 Temperature 37.1 C Heart Rate 85 74 Respiratory 28 H 20 Rate Blood Pressure 106/71 O2 Saturation 96 Oxygen O2 Source [] Room air O2 Source [] Room air O2 Source Room air - EKG (time done) 2136 Rate: Rate (enter#) (80) Rhythm: NSR Duncan: Normal, LAD, Anterior hemiblock QRS: Normal Ischemia: Normal ST segments Compare to prior EKG: Unchanged from prior EKG - Rads (name of study) chest x-ray Radiology: Final report received, EMP read contemporaneously (no acue disease process) PD MEDICAL DECISION MAKING - ED course Complexity details: reviewed old records, reviewed results, re-evaluated patient , considered differential, d/w patient ED course: Patient was seen and examined at bedside. patient had active wheezing in all lung powers. ekg was performed and within normal limits. patient was treated with prednisone and duonebs. Chest x-ray was unchanged from previous and showed no acute infiltrate. Patient felt better after the nebulizer treatments. patient stated that she wanted to return home and that she would take her medications there. patient required no further work up and was stable for discharge with outpatient follow up. Departure - Departure Disposition: Home, Self Care Clinical Impression: COPD exacerbation Condition: Good Instructions: COPD Dx Follow-Up: Mraía Elena Ponce MD [Primary Care Provider] - Within 3 Days Prescriptions: predniSONE [Prednisone] 40 mg PO DAILY 5 Days tablet Comments: Your diagnostics today were within normal limits. there is no sign of acute infection. You are started on steroids and will take them for the next 4 days. You should avoid any smoke or other triggers. You should follow up with your doctor this week for further care. You may return to the emergency department at any time for new, worsening or uncontrollable symptoms.
--- NOTE | 2017-09-17 22:16 | XRAY Preliminary Report ---
Exam: XR CHEST 2 VIEW X-RAY IMPRESSION: No acute cardiopulmonary disease seen. [facility] SITE ID: [id number]
--- NOTE | 2017-09-17 22:17 | XRAY Report ---
EXAM: CHEST RADIOGRAPHY EXAM DATE: 09/17/2017 09:45 PM. CLINICAL HISTORY: Fevers, cough. COMPARISON: Chest 07/10/2017. TECHNIQUE: 2 views. FINDINGS: Lungs/Pleura: No focal opacities evident. No pleural effusion. No pneumothorax. Normal volumes. Mediastinum: Heart and mediastinal contours are unremarkable. IMPRESSION: No acute cardiopulmonary disease seen. [facility] Referring Provider Line: [phone] SITE ID: [id number]
[2017-09-17] MEDS ORDERED: KETOROLAC 60 MG/2 ML VIAL IM STA (22:19)
[2017-09-17] MEDS ORDERED: ALBUTEROL NEB 2.5 MG/3 ML INH ONE (22:22)
[2017-09-17 22:57] VITALS: BP 108/69
== END 2017-09-17 23:00 | disposition home or self-care (01) ==
LOC: EDUNIT# → ED 21:29
DX: J44.1 Chronic obstructive pulmonary disease with (acute) exacerbation (principal); F17.200 Nicotine dependence, unspecified, uncomplicated; E11.9 Type 2 diabetes mellitus without complications; G40.909 Epilepsy, unspecified, not intractable, without status epilepticus
CPT/HCPCS: 71046; 93005; 94640; 96372; 99283; 99284; J7512; J7613; J7620

== ENCOUNTER 2017-09-22 16:57 | Outpatient (CLI) | payer MEDICARE, MEDICAID | END 2017-09-22 16:58 | disposition EMS.NT | LOC: EMS 16:57 | PROVIDERS: ATTEND Surgery | DX: R41.0 Disorientation, unspecified (principal) ==

== ENCOUNTER 2017-09-22 20:05 | Outpatient (CLI) | payer MEDICARE, MEDICAID | END 2017-09-22 20:06 | disposition critical access hospital (66) | LOC: EMS 20:05 | PROVIDERS: ATTEND Surgery | DX: R44.1 Visual hallucinations (principal) | CPT/HCPCS: A0425; A0429 ==

== ENCOUNTER 2017-09-22 20:24 | Emergency (ER) | payer MEDICARE, MEDICAID ==
--- NOTE | 2017-09-22 20:48 | ED Physician Documentation ---
PD HPI ALTERED MENTAL STATUS - Stated complaint Stated Complaint: AMS - Chief complaint Chief Complaint: MHE - History obtained from History obtained from: Patient, EMS - History of Present Illness Timing - onset: Today Timing - duration: Days (1) Timing - details: Gradual onset, Still present Quality / character: Hallucinating Associated symptoms: Fever, Dyspnea, Cough Contributing factors: COPD, Recent illness. No: Recent med change Basline status: Alert and oriented X 3, Ambulatory, Independent Similar symptoms before: Diagnosis (COPD, OM and schizophrenia) Recently seen: Emergency Dept (Seen for exacerbation of COPD on 09-17-17) - Additional information Additional information: 52-year-old female well-known to the emergency department with a history of schizophrenia has developed increased hallucinations today. She indicates that the globes are asking her to pick them up and swallow them. She states that her hallucinations have become more apparent with an illness that she has had. She has been coughing for the past 2 weeks and has had an increased use of her inhaler. She also has had fever and production of green phlegm. She was seen in the emergency department 1 week ago with an exacerbation of her COPD. She did not have infiltrate in her chest x-ray at that time but did have a focal area wheeze on the right base. Review of Systems Constitutional: reports: Fever, Chills, Fatigue Eyes: denies: Decreased vision Ears: denies: Ear pain Nose: reports: Rhinorrhea / runny nose, Congestion Throat: denies: Sore throat Cardiac: denies: Chest pain / pressure, Palpitations Respiratory: reports: Dyspnea, Cough, Wheezing GI: denies: Nausea, Vomiting : denies: Dysuria, Frequency Skin: denies: Rash Musculoskeletal: reports: Back pain. denies: Neck pain Neurologic: denies: Generalized weakness, Focal weakness, Numbness Psychiatric: reports: Hallucinations, Insomnia PD PAST MEDICAL HISTORY - Past Medical History Past Medical History: Yes Cardiovascular: Other Respiratory: COPD, Pneumonia Neuro: TIA, Seizure disorder Endocrine/Autoimmune: Type 2 diabetes GI: GERD, Hiatal hernia BELT PICKER: None : None HEENT: None Psych: Depression, Schizophrenia, Post traumatic stress disorder Musculoskeletal: None Derm: None - Past Surgical History Past Surgical History: Yes General: Bowel surgery Ortho: Other /BELT PICKER: 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 HEENT: Cataracts - Present Medications Home Medications: Ambulatory Orders Medication Instructions Recorded Confirmed Verapamil ER [Calan SA] 180 mg PO DAILY 03/25/16 09/22/17 Lamotrigine 75 mg PO DAILY 06/20/16 09/22/17 OLANZapine [Olanzapine] 10 mg PO BID 06/20/16 09/22/17 Omeprazole [PriLOSEC] 20 mg PO BIDAC 06/20/16 09/22/17 Albuterol Sulf [Ventolin Hfa 2 puffs INH Q4H PRN 12/25/16 09/22/17 Inhaler] Divalproex ER [Depakote ER] 1,250 mg PO QPM 12/25/16 09/22/17 Divalproex ER [Depakote ER] 750 mg PO DAILY 12/25/16 09/22/17 Famotidine 20 mg PO DAILY 12/25/16 09/22/17 Lorazepam 0.5 mg PO DAILY 12/25/16 09/22/17 Rizatriptan Benzoate [Rizatriptan] 10 mg PO ONCE PRN 12/25/16 09/22/17 Thioridazine HCl 50 mg PO BID PRN 12/25/16 09/22/17 Trazodone HCl 100 - 200 mg PO QPM PRN 12/25/16 09/22/17 Sucralfate 1 gm PO ACHS #90 tablet 01/20/17 09/22/17 Promethazine [Phenergan] 25 mg PO Q6H PRN #10 tab 03/19/17 09/22/17 Dexamethasone [Decadron] 4 mg PO DAILY #5 tablet 05/11/17 09/22/17 ARIPiprazole [Aripiprazole] 10 mg PO DAILY 05/23/17 09/22/17 Bupropion HCl [Bupropion HCl Sr] 150 mg PO Q12H 05/23/17 09/22/17 Lactob/S.thermophl/Bifido [Vsl#3] 1 cap PO BIDWM #10 capsule 05/23/17 09/22/17 Prazosin HCl 4 mg PO Q12H 05/23/17 09/22/17 chlorproMAZINE [Thorazine] 25 mg PO Q6H PRN 05/23/17 09/22/17 Cephalexin [Keflex] 500 mg PO Q6HR #27 capsule 07/11/17 09/22/17 Levofloxacin [Levaquin] 750 mg PO DAILY #10 tablet 09/22/17 - Allergies Allergies/Adverse Reactions: Allergies Allergy/AdvReac Type Severity Reaction Status Date / Time azithromycin Allergy Severe Hives Verified 09/22/17 20:29 haloperidol Allergy Severe Anaphylaxis Verified 09/22/17 20:29 Penicillins Allergy Severe Anaphylaxis Verified 09/22/17 20:29 amoxicillin [Amoxicillin] Allergy Intermediate Rash Verified 09/22/17 20:29 grapefruit Allergy Intermediate Rash Verified 09/22/17 20:29 iodine Allergy Intermediate Rash Verified 09/22/17 20:29 Sulfa (Sulfonamide Allergy Intermediate Rash Verified 09/22/17 20:29 Antibiotics) haloperidol lactate * AdvReac Rash Verified 09/22/17 20:29 [From Haldol] - Social History Does the pt smoke?: Yes Smoking Status: Current every day smoker Does the pt drink ETOH?: No Does the pt have substance abuse?: No - Immunizations Immunizations are current?: No Immunizations: TDAP >10years/unknown - POLST Patient has POLST: No PD ED PE NORMAL - Vitals Vital signs reviewed: Yes (Hypertensive mild) - General General: Alert and oriented X 3, No acute distress, Well developed/nourished, Other (Edentulous 52-year-old female in a one piece jumper with super short hair is conversant her eyes are open and she is complaining of increased hallucinations) - HEENT HEENT: Atraumatic, PERRL, EOMI, Other (The right TM is inflamed with rounding of the umbo the left is clear she is edentulous with dry mucous membranes) - Neck Neck: Supple, no meningeal sign, No bony TTP - Cardiac Cardiac: RRR, No murmur - Respiratory Respiratory: No respiratory distress, Other (Focal rhonchi in the right midlung field) - Abdomen Abdomen: Soft, Non tender - Back Back: No CVA TTP, No spinal TTP - Derm Derm: Normal color, Warm and dry, No rash - Extremities Extremities: No deformity, Normal ROM s pain, No edema, No calf tenderness / cord - Neuro Neuro: Alert and oriented X 3, household appliance mechanic 2-12 intact, No motor deficit, No sensory deficit, Normal speech Eye Opening: Spontaneous Motor: Obeys Commands Verbal: Oriented GCS Score: 15 - Psych Psych: Normal mood, Normal affect Results - Vitals Vitals: Vital Signs - 24 hr 09/22/17 09/22/17 20:25 21:15 Temperature 36.6 C Heart Rate 65 77 Respiratory 18 20 Rate Blood Pressure 120/88 H O2 Saturation 97 Oxygen O2 Source [] Room air O2 Source [] Room air O2 Source Room air - Rads (name of study) 2 view chest Radiology: Prelim report reviewed (Impression: 1. Perihilar and bilateral lower lobe opacities concerning for infiltrates in the setting of cough. Superimposed bronchitis versus reactive airway disease. 2. No pneumothorax or effusions.), EMP read indepedently, See rad report PD MEDICAL DECISION MAKING - ED course Complexity details: reviewed old records, reviewed results, re-evaluated patient , considered differential, d/w patient ED course: 52-year-old female schizophrenic with a history of COPD has had increase in her symptoms of cough and congestion and accompanied by this and increase in her hallucinations. On evaluation here in the emergency department she was found to have bilateral infiltrates that are not dense, ROM and she is administered Rocephin IM. She indicates that Levaquin works best for her as an oral drug for pneumonia. She is also given, in the emergency department, dexamethasone and she requires a dose of his Zyprexa. This does improve her hallucinations. Departure - Departure Disposition: 01 Home, Self Care Clinical Impression: Moderate COPD (chronic obstructive pulmonary disease) Pneumonia Qualifiers: Pneumonia type: due to unspecified organism Laterality: bilateral Lung location : lower lobe of lung Qualified Code(s): J18.9 - Pneumonia, unspecified organism Right otitis media Qualifiers: Otitis media type: suppurative Chronicity: acute Recurrence: not specified as recurrent Spontaneous tympanic membrane rupture: without spontaneous rupture Qualified Code(s): H66.001 - Acute suppurative otitis media without spontaneous rupture of ear drum, right ear Condition: Stable Instructions: ED COPD Flare, ED Otitis Media Acute Adult, ED Pneumonia Adult Follow-Up: María Elena Ponce MD [Primary Care Provider] - Prescriptions: Levofloxacin [Levaquin] 750 mg PO DAILY #10 tablet
[2017-09-22] MEDS ORDERED: LORazepam 0.5 MG TABLET PO STA (20:51)
[2017-09-22] MEDS ORDERED: KETOROLAC 60 MG/2 ML VIAL IM STA (20:51)
[2017-09-22] MEDS ORDERED: IPRATROPIUM/ALBUTEROL 3 ML NEB INH STA (20:51)
[2017-09-22] MEDS ORDERED: DEXAMETHASONE 10 MG/ML VIAL PO STA (20:51)
--- NOTE | 2017-09-22 21:38 | XRAY Preliminary Report ---
Exam: XR CHEST 2 VIEW X-RAY IMPRESSION: 1. Perihilar and bilateral lower lobe opacities concerning for infiltrates in the setting of cough. S uperimposed bronchitis versus reactive airways disease. 2. No pneumothorax or effusions. [facility] SITE ID: [id number]
[2017-09-22] MEDS ORDERED: OLANZapine ODT 5 MG TABLET TL ONE (21:51)
--- NOTE | 2017-09-22 22:21 | XRAY Report ---
EXAM: CHEST RADIOGRAPHY EXAM DATE: 09/22/2017 09:05 PM. CLINICAL HISTORY: Right mid lung rhonchi. COMPARISON: None. TECHNIQUE: 2 views. FINDINGS: Lungs/Pleura: Bronchial wall thickening is noted. Lingular and bilateral lower lobe interstitial and alveolar opacities are noted. No effusions or pneumothorax. Mediastinum: Stable cardiac silhouette. Other: Surgical clips are noted in the right upper quadrant of the abdomen. IMPRESSION: 1. Perihilar and bilateral lower lobe opacities concerning for infiltrates in the setting of cough. S uperimposed bronchitis versus reactive airway disease. 2. No pneumothorax or effusions. [facility] Referring Provider Line: [phone] SITE ID: [id number]
[2017-09-22] MEDS ORDERED: cefTRIAXone 1 GM VIAL IM STA (22:38)
[2017-09-22] MEDS ORDERED: LIDOCAINE 1% 2 ML VIAL SUBQ ONE (22:38)
[2017-09-22] MEDS ORDERED: BENZONATATE 100 MG CAPSULE PO STA (22:41)
[2017-09-23 00:53] VITALS: BP 138/74
== END 2017-09-23 00:53 | disposition home or self-care (01) ==
LOC: EDUNIT# → ED 20:24
DX: J44.9 Chronic obstructive pulmonary disease, unspecified (principal); J18.9 Pneumonia, unspecified organism; H66.001 Acute suppurative otitis media without spontaneous rupture of ear drum, right ear; E11.9 Type 2 diabetes mellitus without complications; K21.9 Gastro-esophageal reflux disease without esophagitis; F20.9 Schizophrenia, unspecified; Z86.73 Personal history of transient ischemic attack (TIA), and cerebral infarction without residual deficits; F17.200 Nicotine dependence, unspecified, uncomplicated
CPT/HCPCS: 71046; 94640; 96372; 99283; A9270; J7620

== ENCOUNTER 2017-11-23 20:04 | Outpatient (CLI) | payer MEDICARE, MEDICAID | END 2017-11-23 20:05 | disposition critical access hospital (66) | LOC: EMS 20:04 | PROVIDERS: ATTEND Surgery | DX: M25.552 Pain in left hip (principal); M54.5 Low back pain; Z91.81 History of falling | CPT/HCPCS: A0425; A0429 ==

== ENCOUNTER 2017-11-23 20:23 | Emergency (ER) | payer MEDICARE, MEDICAID ==
[2017-11-23] MEDS ORDERED: KETOROLAC 60 MG/2 ML VIAL IM STA (20:48)
--- NOTE | 2017-11-23 20:53 | ED Physician Documentation ---
PD HPI SYNCOPE - Stated complaint Stated Complaint: HIP/BACK PAIN - Chief complaint Chief Complaint: Heent - History obtained from History obtained from: Patient - History of Present Illness Timing - onset: Other (She fell backward at home two days ago while going up the two steps from the garage into the house. She is not sure if there was LOC or syncope. She has persistent occipital headahce and also LBP and L hip pain. No CP/dyspnea.) Review of Systems Constitutional: denies: Fever, Chills Nose: denies: Rhinorrhea / runny nose, Congestion Throat: denies: Dental pain / toothache, Sore throat Cardiac: denies: Chest pain / pressure, Palpitations Respiratory: denies: Dyspnea, Cough PD PAST MEDICAL HISTORY - Past Medical History Cardiovascular: Other Respiratory: COPD, Pneumonia Neuro: TIA, Seizure disorder Endocrine/Autoimmune: Type 2 diabetes GI: GERD, Hiatal hernia HISTORY PROFESSOR: None : None HEENT: None Psych: Depression, Schizophrenia, Post traumatic stress disorder Musculoskeletal: None Derm: None - Past Surgical History Past Surgical History: Yes General: Bowel surgery Ortho: Other /HISTORY PROFESSOR: 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 HEENT: Cataracts - Present Medications Home Medications: Ambulatory Orders Medication Instructions Recorded Confirmed Verapamil ER [Calan SA] 180 mg PO DAILY 03/25/16 09/22/17 Lamotrigine 75 mg PO DAILY 06/20/16 09/22/17 OLANZapine [Olanzapine] 10 mg PO BID 06/20/16 09/22/17 Omeprazole [PriLOSEC] 20 mg PO BIDAC 06/20/16 09/22/17 Albuterol Sulf [Ventolin Hfa 2 puffs INH Q4H PRN 12/25/16 09/22/17 Inhaler] Divalproex ER [Depakote ER] 1,250 mg PO QPM 12/25/16 09/22/17 Divalproex ER [Depakote ER] 750 mg PO DAILY 12/25/16 09/22/17 Famotidine 20 mg PO DAILY 12/25/16 09/22/17 Lorazepam 0.5 mg PO DAILY 12/25/16 09/22/17 Rizatriptan Benzoate [Rizatriptan] 10 mg PO ONCE PRN 12/25/16 09/22/17 Thioridazine HCl 50 mg PO BID PRN 12/25/16 09/22/17 Trazodone HCl 100 - 200 mg PO QPM PRN 12/25/16 09/22/17 Sucralfate 1 gm PO ACHS #90 tablet 01/20/17 09/22/17 Promethazine [Phenergan] 25 mg PO Q6H PRN #10 tab 03/19/17 09/22/17 Dexamethasone [Decadron] 4 mg PO DAILY #5 tablet 05/11/17 09/22/17 ARIPiprazole [Aripiprazole] 10 mg PO DAILY 05/23/17 09/22/17 Bupropion HCl [Bupropion HCl Sr] 150 mg PO Q12H 05/23/17 09/22/17 Lactob/S.thermophl/Bifido [Vsl#3] 1 cap PO BIDWM #10 capsule 05/23/17 09/22/17 Prazosin HCl 4 mg PO Q12H 05/23/17 09/22/17 chlorproMAZINE [Thorazine] 25 mg PO Q6H PRN 05/23/17 09/22/17 Cephalexin [Keflex] 500 mg PO Q6HR #27 capsule 07/11/17 09/22/17 Levofloxacin [Levaquin] 750 mg PO DAILY #10 tablet 09/22/17 - Allergies Allergies/Adverse Reactions: Allergies Allergy/AdvReac Type Severity Reaction Status Date / Time azithromycin Allergy Severe Hives Verified 11/23/17 20:30 haloperidol Allergy Severe Anaphylaxis Verified 11/23/17 20:30 Penicillins Allergy Severe Anaphylaxis Verified 11/23/17 20:30 amoxicillin [Amoxicillin] Allergy Intermediate Rash Verified 11/23/17 20:30 grapefruit Allergy Intermediate Rash Verified 11/23/17 20:30 iodine Allergy Intermediate Rash Verified 11/23/17 20:30 Sulfa (Sulfonamide Allergy Intermediate Rash Verified 11/23/17 20:30 Antibiotics) haloperidol lactate * AdvReac Rash Verified 11/23/17 20:30 [From Haldol] - Social History Does the pt smoke?: Yes Smoking Status: Current every day smoker Does the pt drink ETOH?: No Does the pt have substance abuse?: No - Immunizations Immunizations are current?: No Immunizations: TDAP >10years/unknown - POLST Patient has POLST: No PD ED PE NORMAL - Vitals Vital signs reviewed: Yes - General General: Alert and oriented X 3, No acute distress - HEENT HEENT: PERRL, EOMI - Neck Neck: Supple, no meningeal sign, No bony TTP - Cardiac Cardiac: RRR, No murmur - Respiratory Respiratory: No respiratory distress, Other (wheezy throughout, nonlabored) - Abdomen Abdomen: Soft, Non tender - Back Back: No CVA TTP, Other (Mild TTP low lumbar spine mj to the left. ) - Derm Derm: Normal color, Warm and dry - Extremities Extremities: Other (L hip mild TTP, but no pain with int/ext rotation) - Neuro Neuro: Alert and oriented X 3, Normal speech - Psych Psych: Normal mood, Normal affect Results - Vitals Vitals: Vital Signs - 24 hr 11/23/17 20:27 Heart Rate 94 Respiratory 18 Rate Blood Pressure 142/112 H O2 Saturation 95 Oxygen O2 Source [] Room air O2 Source [] Room air O2 Source Room air - EKG (time done) 2057 Rate: Rate (enter#) (84) Rhythm: NSR [place]: LAD Intervals: Normal NE QRS: Normal Ischemia: Normal ST segments Computer interpretation: Agree with computer - Labs Labs: Laboratory Tests 11/23/17 11/23/17 20:57 20:57 WBC 11.4 H RBC 4.72 Hgb 13.6 Hct 42.1 MCV 89.4 MCH 28.9 MCHC 32.3 RDW 16.2 H Plt Count 246 MPV 9.2 Neut # Not Reportable Lymph # Not Reportable [place] # Not Reportable Eos # Not Reportable Baso # Not Reportable Absolute Nucleated RBC Not Reportable Total Counted 100 Band Neuts % (Manual) 3 Abnorm Lymph % (Manual) 0 Nucleated RBC % Not Reportable Neutrophils # (Manual) 5.4 Lymphocytes # (Manual) 4.4 H Monocytes # (Manual) 1.6 H Eosinophils # (Manual) 0.0 Basophils # (Manual) 0.0 Differential Comment MANUAL DIFFERENTIAL Platelet Estimate NORMAL (130-450,000) Platelet Morphology NORMAL APPEARANCE RBC Morph Micro Appear 1+ POIKILOCYTOSIS Sodium 140 Potassium 3.8 Chloride 108 Carbon Dioxide 24 Anion Gap 8.0 BUN 13 Creatinine 0.7 Estimated GFR (MDRD) 88 L Glucose 95 Calcium 9.1 Total Bilirubin 0.2 AST 24 ALT 17 Alkaline Phosphatase 62 Total Protein 7.0 Albumin 3.6 Globulin 3.4 Albumin/Globulin Ratio 1.1 Lipase 13 L Last Dose Date UNKNOWN Last Dose Time UNKNOWN Valproic Acid 44.9 - Rads (name of study) CT Head, Lspine XR and L hip XR Radiology: EMP read contemporaneously (No acute findings or evidence of acute trauma.) PD MEDICAL DECISION MAKING - ED course ED course: 52-year-old woman with either a slip and fall was sent with syncope or syncopal episode causing fall 2 days ago with head injury and persistent headache. So both syncopal workup and head CT were done without findings of significance. Departure - Departure Disposition: 01 Home, Self Care Clinical Impression: Strain of back muscle Contusion, hip Qualifiers: Encounter type: initial encounter Laterality: left Qualified Code(s): S70.02XA - Contusion of left hip, initial encounter Head injury Qualifiers: Encounter type: initial encounter Qualified Code(s): S09.90XA - Unspecified injury of head, initial encounter Condition: Good Record reviewed to determine appropriate education?: Yes Instructions: ED Head Injury Closed Comments: Call your doctor to arrange a follow-up appointment, make the next available appointment. In the interim, return anytime if worse or if new symptoms develop. Your blood pressure was elevated today on check into the emergency department. This does not mean that you have hypertension, it is a common phenomenon to come to the emergency department and have elevated blood pressure. I recommend that you see your primary care physician within the week to have it rechecked when you are feeling better.
[2017-11-23 21:02] LABS: BASOPHILS % (AUTO) 0.9 %; HGB - HEMOGLOBIN 13.6 g/dL (12.0-16.0); LYMPHOCYTES % (AUTO) 41.7 %; MEAN CORPUSCULAR HEMOGLOBIN 28.9 pg (27.0-31.0); MEAN CORPUSCULAR HGB CONC 32.3 g/dL (32.0-36.0); MEAN CORPUSCULAR VOLUME 89.4 fL (81.0-99.0); MEAN PLATELET VOLUME 9.2 fL (7.9-10.8); MONOCYTES % (AUTO) 16.7 %; NEUTROPHILS % (AUTO) 38.7 %; PLT - PLATELET COUNT 246 10^3/uL (130-450); RED BLOOD COUNT 4.72 10^6/uL (4.20-5.40); RED CELL DISTRIBUTION WIDTH 16.2 % (12.0-15.0); WHITE BLOOD COUNT 11.4 x10^3/uL (4.8-10.8)
[2017-11-23 21:17] LABS: ABNORMAL LYMPHS % (MANUAL) 0 %; ALBUMIN 3.6 g/dL (3.2-5.5); ALBUMIN/GLOBULIN RATIO 1.1 (1.0-2.2); ALKALINE PHOSPHATASE 62 IU/L (42-121); ALT ALANINE AMINOTRANSFERASE 17 IU/L (10-60); AST ASPARTATE AMINOTRANSFERASE 24 IU/L (10-42); BILIRUBIN,TOTAL 0.2 mg/dL (0.2-1.0); BUN - BLOOD UREA NITROGEN 13 mg/dL (6-20); CALCIUM 9.1 mg/dL (8.5-10.3); CARBON DIOXIDE - CO2 24 mmol/L (21-32); CHLORIDE 108 mmol/L (101-111); CREATININE 0.7 mg/dL (0.4-1.0); GFR - MDRD 88 (>89); GLUCOSE 95 mg/dL (70-100); LIPASE 13 U/L (22-51); SODIUM 140 mmol/L (135-145); VALPROIC ACID (DEPAKOTE) 44.9 ug/mL
--- NOTE | 2017-11-23 21:34 | CT Preliminary Report ---
Exam: CT HEAD W/O IMPRESSION: Normal head CT. [facility] SITE ID: [id number]
--- NOTE | 2017-11-23 21:34 | CT Report ---
EXAM: CT HEAD EXAM DATE: 11/23/2017 09:13 PM. CLINICAL HISTORY: Head inj. COMPARISON: 10/24/2015 CT head. TECHNIQUE: Multiaxial CT images were obtained from the foramen magnum to the vertex. Reformats: Coron al. IV contrast: None. In accordance with CT protocol optimization, one or more of the following dose reduction techniques w ere utilized for this exam: automated exposure control, adjustment of mA and/or KV based on patient s ize, or use of iterative reconstructive technique. FINDINGS: Parenchyma: No intraparenchymal hemorrhage. No evidence of mass, midline shift, or CT findings of inf arction. Lora-white differentiation is distinct. Extraaxial Spaces: Normal for age. No subdural or epidural collections identified. Ventricles: Normal in size and position. Sinuses and Orbits: Imaged paranasal sinuses, orbits, and mastoids show no significant abnormality. Bones: No evidence of fracture or calvarial defect. Other: None. IMPRESSION: Normal head CT. [facility] Referring Provider Line: [phone] SITE ID: [id number]
--- NOTE | 2017-11-23 21:53 | XRAY Preliminary Report ---
Exam: XR HIP W/PELVIS 2-3V LT IMPRESSION: No acute osseous abnormality. [facility] SITE ID: [id number]
[2017-11-23 21:55] LABS: BAND NEUTROPHILS % (MANUAL) 3 %; DIFFERENTIAL COMMENT MANUAL DIFFERENTIAL; LYMPHOCYTES # (MANUAL) 4.4 10^3/uL (1.5-3.5); LYMPHOCYTES % (MANUAL) 39 %; MONOCYTES # (MANUAL) 1.6 10^3/uL (0.0-1.0); NEUTROPHILS # (MANUAL) 5.4 10^3/uL (1.5-6.6); NEUTROPHILS % (MANUAL) 44 %; PLATELET ESTIMATE, MANUAL NORMAL (130-450,000) (NORMAL); PLATELET MORPHOLOGY NORMAL APPEARANCE (NORMAL)
--- NOTE | 2017-11-23 21:56 | XRAY Report ---
EXAM: LEFT HIP AND PELVIS RADIOGRAPHY EXAM DATE: 11/23/2017 09:28 PM. HISTORY: Back pain, fall hip pain. COMPARISONS: Same day lumbar spine radiographs. CT of abdomen and pelvis with contrast 03/19/2017. [facility] hip radiographs 01/22/2015. TECHNIQUE: 1 view of the pelvis and 1 view of the hip. FINDINGS: Bones: No acute displaced fracture. No suspicious focal osseous lesion. Joints: No dislocation. The hip joint space is preserved. Soft Tissues: Phleboliths again noted to project over the pelvis with additional benign soft tissue c alcifications, possibly injection granulomata when correlated with prior CT. IMPRESSION: No acute osseous abnormality. [facility] Referring Provider Line: [phone] SITE ID: [id number]
--- NOTE | 2017-11-23 22:01 | XRAY Report ---
EXAM: LUMBOSACRAL SPINE RADIOGRAPHY EXAM DATE: 11/23/2017 09:28 PM. CLINICAL HISTORY: Back pain, fall hip pain. COMPARISONS: Same day left hip radiographs. CT of the abdomen and pelvis with contrast 03/19/2017. [facility] spine radiographs 03/04/2017.. TECHNIQUE: 2 views. FINDINGS: Alignment: No spondylolisthesis. No scoliosis. Bones: Five [id number] lumbar vertebral bodies are present. No fractures or bone lesions. Disks: Mild disk height loss at L1-L2 and L2-L3. Mild anterior marginal endplate spurring present at L1-L2 and L2-L3 as before. Facets: No significant degenerative changes. Sacroiliac Joints: Unremarkable. Soft Tissues: The visualized bowel gas pattern is nonobstructive. Right upper quadrant clips suggest prior cholecystectomy. IMPRESSION: No acute abnormality or malalignment of the lumbar spine with mild degenerative disk dise ase at L1-L2 and L2-L3. [facility] Referring Provider Line: [phone] SITE ID: [id number]
--- NOTE | 2017-11-23 22:01 | XRAY Preliminary Report ---
Exam: XR LUMBAR SPINE 2 VIEW IMPRESSION: No acute abnormality or malalignment of the lumbar spine with mild degenerative disk dise ase at L1-L2 and L2-L3. [facility] SITE ID: [id number]
[2017-11-23 22:11] VITALS: BP 139/82
== END 2017-11-23 22:13 | disposition home or self-care (01) ==
LOC: EDUNIT# → ED 20:23
DX: R55 Syncope and collapse (principal); S09.90XA Unspecified injury of head, initial encounter; S39.012A Strain of muscle, fascia and tendon of lower back, initial encounter; S70.02XA Contusion of left hip, initial encounter; W10.8XXA Fall (on) (from) other stairs and steps, initial encounter; Y92.008 Other place in unspecified non-institutional (private) residence as the place of occurrence of the external cause; R03.0 Elevated blood-pressure reading, without diagnosis of hypertension; J44.9 Chronic obstructive pulmonary disease, unspecified; F17.200 Nicotine dependence, unspecified, uncomplicated; G40.909 Epilepsy, unspecified, not intractable, without status epilepticus; E11.9 Type 2 diabetes mellitus without complications
CPT/HCPCS: 36415; 70450; 72100; 80053; 80164; 83690; 85025; 93005; 96372; 99283

== ENCOUNTER 2017-12-31 09:00 | Outpatient (CLI) | payer MEDICARE, MEDICAID | END 2017-12-31 09:01 | disposition home or self-care (01) | LOC: LAB.R 09:00 | PROVIDERS: ATTEND Internal Medicine | DX: J02.9 Acute pharyngitis, unspecified (principal) | CPT/HCPCS: 87070; 87430 ==

== ENCOUNTER 2018-01-01 17:18 | Outpatient (CLI) | payer MEDICARE, MEDICAID | END 2018-01-01 17:19 | disposition EMS.NT | LOC: EMS 17:18 | PROVIDERS: ATTEND Surgery | DX: Z03.89 Encounter for observation for other suspected diseases and conditions ruled out (principal); W18.30XA Fall on same level, unspecified, initial encounter; Y93.89 Activity, other specified; Y92.007 Garden or yard of unspecified non-institutional (private) residence as the place of occurrence of the external cause ==

== ENCOUNTER 2018-01-30 18:46 | Outpatient (CLI) | payer MEDICARE, MEDICAID | END 2018-01-30 18:47 | disposition critical access hospital (66) | LOC: EMS 18:46 | PROVIDERS: ATTEND Surgery | DX: R45.851 Suicidal ideations (principal) | CPT/HCPCS: A0425; A0429 ==

== ENCOUNTER 2018-01-30 19:09 | Emergency (ER) | payer MEDICARE, MEDICAID ==
[2018-01-30 19:46] LABS: MUDS CUTOFF CONCENTRATIONS CUTOFF CONC BELOW:
[2018-01-30 19:48] LABS: BILIRUBIN,URINE NEGATIVE (NEGATIVE); GLUCOSE, URINE (UA) NEGATIVE (NEGATIVE); KETONES,URINE (UA) NEGATIVE (NEGATIVE); LEUKOCYTE ESTERASE, URINE NEGATIVE (NEGATIVE); NITRITE,URINE NEGATIVE (NEGATIVE); OCCULT BLOOD,URINE TRACE-INTA (NEGATIVE); PROTEIN,URINE NEGATIVE (NEGATIVE); UROBILINOGEN,URINE 0.2 (NORMAL) E.U./dL (NORMAL)
[2018-01-30 19:51] LABS: CLARITY,URINE CLEAR (CLEAR)
[2018-01-30 19:58] LABS: AMPHETAMINE SCREEN,URINE NEGATIVE (NEGATIVE); BENZODIAZEPINES SCREEN, URINE NEGATIVE (NEGATIVE); COCAINE SCREEN URINE NEGATIVE (NEGATIVE); METHADONE SCREEN, URINE NEGATIVE (NEGATIVE); METHAMPHETAMINES SCREEN, URINE NEGATIVE (NEGATIVE); OPIATE SCREEN, URINE NEGATIVE (NEGATIVE); OXYCODONE SCREEN, URINE NEGATIVE (NEGATIVE); PROPOXYPHENE SCREEN, URINE NEGATIVE (NEGATIVE); TRICYCLIC ANTIDEPRESSANT,URINE NEGATIVE (NEGATIVE)
[2018-01-30 20:10] LABS: ALBUMIN 3.6 g/dL (3.2-5.5); ALBUMIN/GLOBULIN RATIO 1.1 (1.0-2.2); ALKALINE PHOSPHATASE 59 IU/L (42-121); ALT ALANINE AMINOTRANSFERASE 16 IU/L (10-60); AST ASPARTATE AMINOTRANSFERASE 21 IU/L (10-42); BILIRUBIN,TOTAL 0.5 mg/dL (0.2-1.0); BUN - BLOOD UREA NITROGEN 10 mg/dL (6-20); CALCIUM 8.9 mg/dL (8.5-10.3); CARBON DIOXIDE - CO2 21 mmol/L (21-32); CHLORIDE 104 mmol/L (101-111); CREATININE 0.8 mg/dL (0.4-1.0); GFR - MDRD 75 (>89); GLUCOSE 87 mg/dL (70-100); LIPASE 14 U/L (22-51); SALICYLATE < 6.0 mg/dL; SODIUM 137 mmol/L (135-145)
[2018-01-30 20:11] LABS: ACETAMINOPHEN < 10 ug/mL (10-30)
--- NOTE | 2018-01-30 20:25 | ED Physician Documentation ---
PD HPI MHE - Stated complaint Stated Complaint: MHE - Chief complaint Chief Complaint: MHE - History obtained from History obtained from: Patient - History of Present Illness Primary symptom: Anxiety Timing - onset: Today Similar symptoms before: Work up / diagnostics, Treatment Recently seen: Emergency Dept - Additional information Additional information: Patient is a 53 year old female with multiple co morbidities including anxiety and depression who is presenting to the emergency department for anxiety. Patient states that she has a new roommate and that they might be involved with the mafia. Patient became anxious. Patient states that today is her birthday( which it is) and admits to drinking one alcoholic beverage. Review of Systems Constitutional: denies: Fever, Chills Cardiac: denies: Chest pain / pressure, Palpitations Respiratory: denies: Dyspnea Psychiatric: reports: Anxiety. 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: 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 HEENT: Cataracts - Present Medications Home Medications: Ambulatory Orders Medication Instructions Recorded Confirmed Verapamil ER [Calan SA] 180 mg PO DAILY 03/25/16 09/22/17 Lamotrigine 75 mg PO DAILY 06/20/16 09/22/17 OLANZapine [Olanzapine] 10 mg PO BID 06/20/16 09/22/17 Omeprazole [PriLOSEC] 20 mg PO BIDAC 06/20/16 09/22/17 Albuterol Sulf [Ventolin Hfa 2 puffs INH Q4H PRN 12/25/16 09/22/17 Inhaler] Divalproex ER [Depakote ER] 1,250 mg PO QPM 12/25/16 09/22/17 Divalproex ER [Depakote ER] 750 mg PO DAILY 12/25/16 09/22/17 Famotidine 20 mg PO DAILY 12/25/16 09/22/17 Lorazepam 0.5 mg PO DAILY 12/25/16 09/22/17 Rizatriptan Benzoate [Rizatriptan] 10 mg PO ONCE PRN 12/25/16 09/22/17 Thioridazine HCl 50 mg PO BID PRN 12/25/16 09/22/17 Trazodone HCl 100 - 200 mg PO QPM PRN 12/25/16 09/22/17 Sucralfate 1 gm PO ACHS #90 tablet 01/20/17 09/22/17 Promethazine [Phenergan] 25 mg PO Q6H PRN #10 tab 03/19/17 09/22/17 Dexamethasone [Decadron] 4 mg PO DAILY #5 tablet 05/11/17 09/22/17 ARIPiprazole [Aripiprazole] 10 mg PO DAILY 05/23/17 09/22/17 Bupropion HCl [Bupropion HCl Sr] 150 mg PO Q12H 05/23/17 09/22/17 Lactob/S.thermophl/Bifido [Vsl#3] 1 cap PO BIDWM #10 capsule 05/23/17 09/22/17 Prazosin HCl 4 mg PO Q12H 05/23/17 09/22/17 chlorproMAZINE [Thorazine] 25 mg PO Q6H PRN 05/23/17 09/22/17 Cephalexin [Keflex] 500 mg PO Q6HR #27 capsule 07/11/17 09/22/17 Levofloxacin [Levaquin] 750 mg PO DAILY #10 tablet 09/22/17 - Allergies Allergies/Adverse Reactions: Allergies Allergy/AdvReac Type Severity Reaction Status Date / Time azithromycin Allergy Severe Hives Verified 11/23/17 20:30 haloperidol Allergy Severe Anaphylaxis Verified 11/23/17 20:30 Penicillins Allergy Severe Anaphylaxis Verified 11/23/17 20:30 amoxicillin [Amoxicillin] Allergy Intermediate Rash Verified 11/23/17 20:30 grapefruit Allergy Intermediate Rash Verified 11/23/17 20:30 iodine Allergy Intermediate Rash Verified 11/23/17 20:30 Sulfa (Sulfonamide Allergy Intermediate Rash Verified 11/23/17 20:30 Antibiotics) haloperidol lactate * AdvReac Rash Verified 11/23/17 20:30 [From Haldol] - Social History Does the pt smoke?: Yes Smoking Status: Current every day smoker Does the pt drink ETOH?: No Does the pt have substance abuse?: No - Immunizations Immunizations are current?: No Immunizations: TDAP >10years/unknown - POLST Patient has POLST: No PD ED PE NORMAL - Vitals Vital signs reviewed: Yes - General General: Alert and oriented X 3, No acute distress - HEENT HEENT: Atraumatic - Cardiac Cardiac: RRR - Respiratory Respiratory: No respiratory distress - Abdomen Abdomen: Non distended - Derm Derm: Normal color, Warm and dry - Extremities Extremities: No deformity - Neuro Neuro: Alert and oriented X 3 Motor: Obeys Commands Verbal: Oriented - Psych Psych: Normal mood Results - Vitals Vitals: Vital Signs - 24 hr 01/30/18 01/30/18 19:15 20:42 Temperature 36.9 C 36.7 C Heart Rate 94 86 Respiratory 16 18 Rate Blood Pressure 118/71 114/83 H O2 Saturation 98 95 Oxygen O2 Source [With Activity] Room air O2 Source [Without Activity] Room air O2 Source Room air - Labs Labs: Laboratory Tests 01/30/18 01/30/18 01/30/18 19:18 19:18 19:50 Sodium 137 Potassium 3.6 Chloride 104 Carbon Dioxide 21 Anion Gap 12.0 BUN 10 Creatinine 0.8 Estimated GFR (MDRD) 75 L Glucose 87 Calcium 8.9 Total Bilirubin 0.5 AST 21 ALT 16 Alkaline Phosphatase 59 Total Protein 7.0 Albumin 3.6 Globulin 3.4 Albumin/Globulin Ratio 1.1 Lipase 14 L Urine Color YELLOW Urine Clarity CLEAR Urine pH 6.0 Ur Specific [place] <=1.005 Urine Protein NEGATIVE Urine Glucose (UA) NEGATIVE Urine Ketones NEGATIVE Urine Occult Blood TRACE-INTA Urine Nitrite NEGATIVE Urine Bilirubin NEGATIVE Urine Urobilinogen 0.2 (NORMAL) Ur Leukocyte Esterase NEGATIVE Ur Microscopic Review NOT INDICATED Urine Culture Comments NOT INDICATED Salicylates < 6.0 Urine Opiates Screen NEGATIVE Ur Oxycodone Screen NEGATIVE Urine Methadone Screen NEGATIVE Ur Propoxyphene Screen NEGATIVE Acetaminophen < 10 L Ur Barbiturates Screen NEGATIVE Ur Tricyclics Screen NEGATIVE Ur Phencyclidine Scrn NEGATIVE Ur Amphetamine Screen NEGATIVE U Methamphetamines Scrn NEGATIVE U Benzodiazepines Scrn NEGATIVE Urine Cocaine Screen NEGATIVE U Cannabinoids Screen NEGATIVE Ethyl Alcohol 25.9 PD MEDICAL DECISION MAKING - ED course Complexity details: reviewed old records, reviewed results, re-evaluated patient , considered differential, d/w patient ED course: Patient was seen and examined at bedside. patient stated that she was already feeling better and ready to go home. Patient denied any suicidal or homicidal ideation. Patient was able to attend to conversation and ambulate without difficulty. patient required no further inpatient work up and was stable for discharge with outpatient follow up. Departure - Departure Disposition: 01 Home, Self Care Clinical Impression: Anxiety state Condition: Good Instructions: ED Stress React Follow-Up: María Elena Ponce MD [Primary Care Provider] - Tomorrow Comments: It is important that you follow up with your counselor tomorrow. You may return to the emergency department at any time for new, worsening or uncontrollable symptoms. Or if you have any thoughts of hurting yourself or anyone else. Discharge Date/Time: 01/30/18 20:50
[2018-01-30 20:42] VITALS: BP 114/83
== END 2018-01-30 20:50 | disposition home or self-care (01) ==
LOC: EDUNIT# → ED 19:09
DX: F41.9 Anxiety disorder, unspecified (principal); E11.9 Type 2 diabetes mellitus without complications; F17.200 Nicotine dependence, unspecified, uncomplicated
CPT/HCPCS: 36415; 80053; 80306; 80307; 81003; 83690; 99283; G0480; 80320; 80329; 81001; 87086

== ENCOUNTER 2018-02-06 12:00 | Emergency (ER) | payer MEDICARE, MEDICAID ==
[2018-02-06 12:07] VITALS: BP 107/65
[2018-02-06] MEDS ORDERED: HYDROcod/ACETAM 5/325 MG TABLET PO STA (13:04)
--- NOTE | 2018-02-06 13:05 | ED Physician Documentation ---
PD HPI ABD PAIN - Stated complaint Stated Complaint: FEMALE - Chief complaint Chief Complaint: UTI - History obtained from History obtained from: Patient - History of Present Illness Timing - onset: Other (She has had 3 days of urinary frequency and dysuria associated with left pelvic pain and bilateral flank pain, left greater than right. She thinks she has had low-grade fevers but none measured. She denies nausea or vomiting.) Review of Systems Constitutional: reports: Fever (?). 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: 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 HEENT: Cataracts - Present Medications Home Medications: Ambulatory Orders Medication Instructions Recorded Confirmed Verapamil ER [Calan SA] 180 mg PO DAILY 03/25/16 09/22/17 Lamotrigine 75 mg PO DAILY 06/20/16 09/22/17 OLANZapine [Olanzapine] 10 mg PO BID 06/20/16 09/22/17 Omeprazole [PriLOSEC] 20 mg PO BIDAC 06/20/16 09/22/17 Albuterol Sulf [Ventolin Hfa 2 puffs INH Q4H PRN 12/25/16 09/22/17 Inhaler] Divalproex ER [Depakote ER] 1,250 mg PO QPM 12/25/16 09/22/17 Divalproex ER [Depakote ER] 750 mg PO DAILY 12/25/16 09/22/17 Famotidine 20 mg PO DAILY 12/25/16 09/22/17 Lorazepam 0.5 mg PO DAILY 12/25/16 09/22/17 Rizatriptan Benzoate [Rizatriptan] 10 mg PO ONCE PRN 12/25/16 09/22/17 Thioridazine HCl 50 mg PO BID PRN 12/25/16 09/22/17 Trazodone HCl 100 - 200 mg PO QPM PRN 12/25/16 09/22/17 Sucralfate 1 gm PO ACHS #90 tablet 01/20/17 09/22/17 Promethazine [Phenergan] 25 mg PO Q6H PRN #10 tab 03/19/17 09/22/17 Dexamethasone [Decadron] 4 mg PO DAILY #5 tablet 05/11/17 09/22/17 ARIPiprazole [Aripiprazole] 10 mg PO DAILY 05/23/17 09/22/17 Bupropion HCl [Bupropion HCl Sr] 150 mg PO Q12H 05/23/17 09/22/17 Lactob/S.thermophl/Bifido [Vsl#3] 1 cap PO BIDWM #10 capsule 05/23/17 09/22/17 Prazosin HCl 4 mg PO Q12H 05/23/17 09/22/17 chlorproMAZINE [Thorazine] 25 mg PO Q6H PRN 05/23/17 09/22/17 Cephalexin [Keflex] 500 mg PO Q6HR #27 capsule 07/11/17 09/22/17 Levofloxacin [Levaquin] 750 mg PO DAILY #10 tablet 09/22/17 Cephalexin [Keflex] 500 mg PO QID #20 capsule 02/06/18 HYDROcod/ACETAM 5/325 [[place] 5/325] 1 - 2 ea PO Q6H PRN #7 tablet 02/06/18 - Allergies Allergies/Adverse Reactions: Allergies Allergy/AdvReac Type Severity Reaction Status Date / Time azithromycin Allergy Severe Hives Verified 02/06/18 12:07 haloperidol Allergy Severe Anaphylaxis Verified 02/06/18 12:07 Penicillins Allergy Severe Anaphylaxis Verified 02/06/18 12:07 amoxicillin [Amoxicillin] Allergy Intermediate Rash Verified 02/06/18 12:07 grapefruit Allergy Intermediate Rash Verified 02/06/18 12:07 iodine Allergy Intermediate Rash Verified 02/06/18 12:07 Sulfa (Sulfonamide Allergy Intermediate Rash Verified 02/06/18 12:07 Antibiotics) haloperidol lactate * AdvReac Rash Verified 02/06/18 12:07 [From Haldol] - Social History Does the pt smoke?: Yes Smoking Status: Current every day smoker Does the pt drink ETOH?: No Does the pt have substance abuse?: No - Immunizations Immunizations are current?: No Immunizations: TDAP >10years/unknown - POLST Patient has POLST: No PD ED PE NORMAL - Vitals Vital signs reviewed: Yes - General General: Alert and oriented X 3, No acute distress - Abdomen Abdomen: Normal bowel sounds, Soft, Non tender - Back Back: Other (Mild left CVA tenderness) - Neuro Neuro: Alert and oriented X 3, Normal speech Results - Vitals Vitals: Vital Signs - 24 hr 02/06/18 12:04 Temperature 36 C L Heart Rate 74 Respiratory 16 Rate Blood Pressure 107/65 O2 Saturation 94 Oxygen O2 Source [With Activity] Room air O2 Source [Without Activity] Room air O2 Source Room air - Labs Labs: Laboratory Tests 02/06/18 13:00 Urine Color YELLOW Urine Clarity CLEAR Urine pH 7.0 Ur Specific [place] 1.010 Urine Protein NEGATIVE Urine Glucose (UA) NEGATIVE Urine Ketones NEGATIVE Urine Occult Blood NEGATIVE Urine Nitrite NEGATIVE Urine Bilirubin NEGATIVE Urine Urobilinogen 0.2 (NORMAL) Ur Leukocyte Esterase NEGATIVE Ur Microscopic Review NOT INDICATED Urine Culture Comments NOT INDICATED PD MEDICAL DECISION MAKING - ED course ED course: Symptoms are suggestive of pyelonephritis. Could also be bladder spasms. Urinary retention ruled out by bladder scan, 60 mL's. She does have a history of urinary retention though so I oxybutynin. Given the high pretest probability of pyelonephritis and low predictive value of urinalysis, will treat for such. Departure - Departure Disposition: 01 Home, Self Care Clinical Impression: Pyelonephritis Condition: Good Record reviewed to determine appropriate education?: Yes Instructions: Pyelonephritis Dc Prescriptions: Cephalexin [Keflex] 500 mg PO QID #20 capsule HYDROcod/ACETAM 5/325 [Advance 5/325] 1 - 2 ea PO Q6H PRN #7 tablet PRN Reason: Pain Comments: Call your doctor to arrange a follow-up appointment, make the next available appointment. In the interim, return anytime if worse or if new symptoms develop.
[2018-02-06 13:08] LABS: BILIRUBIN,URINE NEGATIVE (NEGATIVE); GLUCOSE, URINE (UA) NEGATIVE (NEGATIVE); KETONES,URINE (UA) NEGATIVE (NEGATIVE); LEUKOCYTE ESTERASE, URINE NEGATIVE (NEGATIVE); NITRITE,URINE NEGATIVE (NEGATIVE); OCCULT BLOOD,URINE NEGATIVE (NEGATIVE); PROTEIN,URINE NEGATIVE (NEGATIVE); UROBILINOGEN,URINE 0.2 (NORMAL) E.U./dL (NORMAL)
[2018-02-06 13:12] LABS: CLARITY,URINE CLEAR (CLEAR)
[2018-02-06] MEDS ORDERED: cephALEXin 250 MG CAPSULE PO STA (13:35)
== END 2018-02-06 13:43 | disposition home or self-care (01) ==
LOC: ED 12:00
DX: N12 Tubulo-interstitial nephritis, not specified as acute or chronic (principal); E11.9 Type 2 diabetes mellitus without complications; F17.200 Nicotine dependence, unspecified, uncomplicated
CPT/HCPCS: 81003; 99283; A9270; 81001; 87086

== ENCOUNTER 2018-02-11 14:59 | Outpatient (CLI) | payer MEDICARE, MEDICAID | END 2018-02-11 15:00 | disposition critical access hospital (66) | LOC: EMS 14:59 | PROVIDERS: ATTEND Surgery | DX: M54.9 Dorsalgia, unspecified (principal) | CPT/HCPCS: A0425; A0429 ==

== ENCOUNTER 2018-02-11 15:20 | Emergency (ER) | payer MEDICARE, MEDICAID ==
[2018-02-11 15:30] VITALS: BP 110/72
--- NOTE | 2018-02-11 15:57 | ED Physician Documentation ---
History of Present Illness - Stated complaint Stated Complaint: BACK PX - Chief complaint Chief Complaint: UTI - History obtained from History obtained from: Patient - History of Present Illness Timing: How many days ago (4-5) Pain level max: 7 Pain level now: 5 Improved by: vicodin, rest Worsened by: movement - Additonal information Additional information: Patient states dysuria and flank pain for 4-5 days. Started on keflex recently and not improving. Review of Systems Ten Systems: 10 systems reviewed and negative Constitutional: denies: Fever, Chills Ears: denies: Ear pain Nose: denies: Rhinorrhea / runny nose, Congestion Throat: denies: Sore throat Cardiac: denies: Chest pain / pressure Respiratory: denies: Cough GI: denies: Abdominal Pain, Vomiting, Diarrhea, Hematemesis, Bloody / black stool : reports: Dysuria. denies: Frequency, Hesitancy, Incontinent, Hematuria, Discharge, Vaginal bleeding Skin: denies: Rash Musculoskeletal: reports: Back pain (L flank). 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: 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 HEENT: Cataracts - Present Medications Home Medications: Ambulatory Orders Medication Instructions Recorded Confirmed Verapamil ER [Calan SA] 180 mg PO DAILY 03/25/16 09/22/17 Lamotrigine 75 mg PO DAILY 06/20/16 09/22/17 OLANZapine [Olanzapine] 10 mg PO BID 06/20/16 09/22/17 Omeprazole [PriLOSEC] 20 mg PO BIDAC 06/20/16 09/22/17 Albuterol Sulf [Ventolin Hfa 2 puffs INH Q4H PRN 12/25/16 09/22/17 Inhaler] Divalproex ER [Depakote ER] 1,250 mg PO QPM 12/25/16 09/22/17 Divalproex ER [Depakote ER] 750 mg PO DAILY 12/25/16 09/22/17 Famotidine 20 mg PO DAILY 12/25/16 09/22/17 Lorazepam 0.5 mg PO DAILY 12/25/16 09/22/17 Rizatriptan Benzoate [Rizatriptan] 10 mg PO ONCE PRN 12/25/16 09/22/17 Thioridazine HCl 50 mg PO BID PRN 12/25/16 09/22/17 Trazodone HCl 100 - 200 mg PO QPM PRN 12/25/16 09/22/17 Sucralfate 1 gm PO ACHS #90 tablet 01/20/17 09/22/17 Promethazine [Phenergan] 25 mg PO Q6H PRN #10 tab 03/19/17 09/22/17 Dexamethasone [Decadron] 4 mg PO DAILY #5 tablet 05/11/17 09/22/17 ARIPiprazole [Aripiprazole] 10 mg PO DAILY 05/23/17 09/22/17 Bupropion HCl [Bupropion HCl Sr] 150 mg PO Q12H 05/23/17 09/22/17 Lactob/S.thermophl/Bifido [Vsl#3] 1 cap PO BIDWM #10 capsule 05/23/17 09/22/17 Prazosin HCl 4 mg PO Q12H 05/23/17 09/22/17 chlorproMAZINE [Thorazine] 25 mg PO Q6H PRN 05/23/17 09/22/17 Cephalexin [Keflex] 500 mg PO Q6HR #27 capsule 07/11/17 09/22/17 Levofloxacin [Levaquin] 750 mg PO DAILY #10 tablet 09/22/17 Cephalexin [Keflex] 500 mg PO QID #20 capsule 02/06/18 HYDROcod/ACETAM 5/325 [[place] 5/325] 1 - 2 ea PO Q6H PRN #7 tablet 02/06/18 Hydrocodone/Acetaminophen 1 - 2 each PO Q6H PRN #7 tablet 02/11/18 [Hydrocodon-Acetaminophen 5-325] Meloxicam [Mobic] 7.5 mg PO BID PRN #20 tablet 02/11/18 - Allergies Allergies/Adverse Reactions: Allergies Allergy/AdvReac Type Severity Reaction Status Date / Time azithromycin Allergy Severe Hives Verified 02/11/18 15:25 haloperidol Allergy Severe Anaphylaxis Verified 02/11/18 15:25 Penicillins Allergy Severe Anaphylaxis Verified 02/11/18 15:25 amoxicillin [Amoxicillin] Allergy Intermediate Rash Verified 02/11/18 15:25 grapefruit Allergy Intermediate Rash Verified 02/11/18 15:25 iodine Allergy Intermediate Rash Verified 02/11/18 15:25 Sulfa (Sulfonamide Allergy Intermediate Rash Verified 02/11/18 15:25 Antibiotics) haloperidol lactate * AdvReac Rash Verified 02/11/18 15:25 [From Haldol] - Social History Does the pt smoke?: Yes Smoking Status: Current every day smoker Does the pt drink ETOH?: No Does the pt have substance abuse?: No - Immunizations Immunizations are current?: No Immunizations: TDAP >10years/unknown - POLST Patient has POLST: No PD ED PE NORMAL - Vitals Vital signs reviewed: Yes - General General: Alert and oriented X 3, No acute distress, Well developed/nourished - HEENT HEENT: PERRL, Moist mucous membranes - Neck Neck: Supple, no meningeal sign - Cardiac Cardiac: RRR, Strong equal pulses - Respiratory Respiratory: No respiratory distress, Clear bilaterally - Abdomen Abdomen: Soft, Non tender, Non distended - Female Female : Pt declined - Back Back: No CVA TTP, No spinal TTP - Derm Derm: Warm and dry - Extremities Extremities: No edema, No calf tenderness / cord - Neuro Neuro: Alert and oriented X 3 - Psych Psych: Normal mood, Normal affect Results - Vitals Vitals: Oxygen O2 Source [With Activity] Room air O2 Source [Without Activity] Room air O2 Source Room air - Labs Labs: Laboratory Tests 02/11/18 02/11/18 02/11/18 15:34 16:47 16:47 WBC 10.1 RBC 4.42 Hgb 13.5 Hct 40.3 MCV 91.0 MCH 30.4 MCHC 33.4 RDW 15.3 H Plt Count 264 MPV 9.4 Neut # (Auto) 4.5 Lymph # (Auto) 4.1 H [place] # (Auto) 1.4 H Eos # (Auto) 0.1 Baso # (Auto) 0.1 Absolute Nucleated RBC 0.00 Nucleated RBC % 0.0 Sodium 137 Potassium 3.9 Chloride 105 Carbon Dioxide 27 Anion Gap 5.0 L BUN 11 Creatinine 0.8 Estimated GFR (MDRD) 75 L Glucose 93 Calcium 8.8 Total Bilirubin 0.4 AST 22 ALT 15 Alkaline Phosphatase 57 Total Protein 6.6 L Albumin 3.3 Globulin 3.3 Albumin/Globulin Ratio 1.0 Lipase 17 L Urine Color YELLOW Urine Clarity CLEAR Urine pH 6.0 Ur Specific [place] >=1.030 H Urine Protein NEGATIVE Urine Glucose (UA) NEGATIVE Urine Ketones 15 H Urine Occult Blood NEGATIVE Urine Nitrite NEGATIVE Urine Bilirubin NEGATIVE Urine Urobilinogen 0.2 (NORMAL) Ur Leukocyte Esterase NEGATIVE Ur Microscopic Review NOT INDICATED Urine Culture Comments NOT INDICATED - Rads (name of study) CT abd.pelvis Radiology: Prelim report reviewed, EMP read contemporaneously, See rad report ( No acute abnormality) PD MEDICAL DECISION MAKING - ED course Complexity details: reviewed results, re-evaluated patient, considered differential, d/w patient ED course: Patient is a 53-year-old female presents to the emergency department with dysuria and flank pain. No fevers. No vomiting. Clean urinalysis. Prior ED visit was reviewed and had a clean urinalysis at that time as well. No acute findings on CT scan. Feels better after Toradol and one hydrocodone. Possible that this represents interstitial cystitis? Possible musculoskeletal back pain as well. We will trial her on pain medications and follow-up closely with her doctor. She declines a pelvic examination at this time. No vaginal bleeding or discharge. No itching. Patient counseled regarding signs and symptoms for which I believe and urgent re-evaluation would be necessary. Patient with good understanding of and agreement to plan and is comfortable going home at this time This document was made in part using voice recognition software. While efforts are made to proofread this document, sound alike and grammatical errors may occur. Departure - Departure Disposition: 01 Home, Self Care Clinical Impression: Dysuria Back pain Qualifiers: Back pain location: low back pain Chronicity: acute Back pain laterality: left Sciatica presence: without sciatica Qualified Code(s): M54.5 - Low back pain Condition: Good Instructions: ED Dysuria Uncertain Cause, ED Flank Pain Uncertain Cause Follow-Up: María Elena Ponce MD [Primary Care Provider] - Within 3 Days Prescriptions: Hydrocodone/Acetaminophen [Hydrocodon-Acetaminophen 5-325] 1 - 2 each PO Q6H PRN #7 tablet PRN Reason: pain Meloxicam [Mobic] 7.5 mg PO BID PRN #20 tablet PRN Reason: Pain Comments: The cause of your symptoms is unclear today. Your CT scan and lab work is normal. Please follow-up with your doctor for further care. Return if you worsen. Discharge Date/Time: 02/11/18 18:47
[2018-02-11] MEDS ORDERED: HYDROcod/ACETAM 5/325 MG TABLET PO STA (15:59)
[2018-02-11] MEDS ORDERED: PHENAZOPYRIDINE 100 MG TABLET PO STA (16:00)
[2018-02-11 16:15] LABS: BILIRUBIN,URINE NEGATIVE (NEGATIVE); GLUCOSE, URINE (UA) NEGATIVE (NEGATIVE); KETONES,URINE (UA) 15 mg/dL (NEGATIVE); LEUKOCYTE ESTERASE, URINE NEGATIVE (NEGATIVE); NITRITE,URINE NEGATIVE (NEGATIVE); OCCULT BLOOD,URINE NEGATIVE (NEGATIVE); PROTEIN,URINE NEGATIVE (NEGATIVE); UROBILINOGEN,URINE 0.2 (NORMAL) E.U./dL (NORMAL)
[2018-02-11 16:16] LABS: CLARITY,URINE CLEAR (CLEAR)
[2018-02-11] MEDS ORDERED: IOPAMIDOL-300 100 ML VIAL ONE (16:51)
[2018-02-11 16:58] LABS: BASOPHILS # (AUTO) 0.1 10^3/uL (0.0-0.1); BASOPHILS % (AUTO) 0.6 %; EOSINOPHILS # (AUTO) 0.1 10^3/uL (0.0-0.7); EOSINOPHILS % (AUTO) 1.5 %; HGB - HEMOGLOBIN 13.5 g/dL (12.0-16.0); LYMPHOCYTES # (AUTO) 4.1 10^3/uL (1.5-3.5); LYMPHOCYTES % (AUTO) 40.2 %; MEAN CORPUSCULAR HEMOGLOBIN 30.4 pg (27.0-31.0); MEAN CORPUSCULAR HGB CONC 33.4 g/dL (32.0-36.0); MEAN PLATELET VOLUME 9.4 fL (7.9-10.8); MONOCYTES # (AUTO) 1.4 10^3/uL (0.0-1.0); MONOCYTES % (AUTO) 13.4 %; NEUTROPHILS # (AUTO) 4.5 10^3/uL (1.5-6.6); NEUTROPHILS % (AUTO) 44.3 %; PLT - PLATELET COUNT 264 10^3/uL (130-450); RED BLOOD COUNT 4.42 10^6/uL (4.20-5.40); RED CELL DISTRIBUTION WIDTH 15.3 % (12.0-15.0); WHITE BLOOD COUNT 10.1 x10^3/uL (4.8-10.8)
[2018-02-11 17:08] LABS: ALBUMIN 3.3 g/dL (3.2-5.5); BILIRUBIN,TOTAL 0.4 mg/dL (0.2-1.0); CALCIUM 8.8 mg/dL (8.5-10.3); CREATININE 0.8 mg/dL (0.4-1.0); TOTAL PROTEIN 6.6 g/dL (6.7-8.2)
[2018-02-11] MEDS ORDERED: diphenhydrAMINE INJ 50 MG/ML VIAL IVP STA (17:23)
[2018-02-11] MEDS ORDERED: IOPAMIDOL-300 100 ML VIAL IVP ONE (18:01)
[2018-02-11] MEDS ORDERED: KETOROLAC 60 MG/2 ML VIAL IVP STA (18:25)
--- NOTE | 2018-02-11 18:28 | CT Preliminary Report ---
Exam: CT ABDOMEN/PELVIS W/ IMPRESSION: No acute abnormalities. [facility] SITE ID: [id number]
--- NOTE | 2018-02-11 18:29 | CT Report ---
EXAM: CT ABDOMEN AND PELVIS EXAM DATE: 02/11/2018 05:48 PM. CLINICAL HISTORY: L flank pain. COMPARISONS: 03/19/17. TECHNIQUE: Routine helical CT imaging was performed through the abdomen and pelvis. IV contrast: 100 cc Isovue-300. Enteric contrast: No. Reconstructions: Coronal and sagittal. In accordance with CT protocol optimization, one or more of the following dose reduction techniques w ere utilized for this exam: automated exposure control, adjustment of mA and/or KV based on patient s ize, or use of iterative reconstructive technique. FINDINGS: ABDOMEN: Lung Bases: Incompletely included lower lungs are grossly clear. Heart size is within normal limits. No basilar effusions. Liver: Unremarkable. Spleen: Status post splenectomy. Pancreas: Unremarkable. Gallbladder/Bile Ducts: Status post cholecystectomy. Biliary tree is normal caliber. Adrenal Glands: Unremarkable. Kidneys: No mass, calculi, or hydronephrosis. Peritoneum/Mesentery/Bowel: No free fluid, free air, or collection. No intestinal obstruction or inflammation. Lymph nodes: No mesenteric, periportal, or retroperitoneal lymphadenopathy. Retroperitoneum: Abdominal aorta is nonaneurysmal. Portal vein is patent. Hepatic veins are patent. PELVIS: The bladder is unremarkable for the degree of distention. The uterus is absent. No pelvic lym phadenopathy. Bones: No suspicious osseous lesions. IMPRESSION: No acute abnormalities. [facility] Referring Provider Line: [phone] SITE ID: [id number]
== END 2018-02-11 18:47 | disposition home or self-care (01) ==
LOC: ED 15:28
DX: R30.0 Dysuria (principal); M54.5 Low back pain; R10.30 Lower abdominal pain, unspecified; J44.9 Chronic obstructive pulmonary disease, unspecified; E11.9 Type 2 diabetes mellitus without complications; K21.9 Gastro-esophageal reflux disease without esophagitis; F17.200 Nicotine dependence, unspecified, uncomplicated
CPT/HCPCS: 36415; 74177; 80053; 81003; 83690; 85025; 96374; 96375; 99283; 99284; A9270; J1200; Q9967; 81001; 87086

== ENCOUNTER 2018-02-14 19:13 | Outpatient (CLI) | payer MEDICARE, MEDICAID | END 2018-02-14 19:14 | disposition critical access hospital (66) | LOC: EMS 19:13 | PROVIDERS: ATTEND Surgery | DX: R07.9 Chest pain, unspecified (principal); R06.02 Shortness of breath | CPT/HCPCS: A0425; A0427 ==

== ENCOUNTER 2018-02-14 19:35 | Inpatient (IN) | payer MEDICARE, MEDICAID ==
[2018-02-14] MEDS ORDERED: methylPREDNISolone SUCCINATE 125 MG/2 ML VIAL IVP STA (20:08)
[2018-02-14] MEDS ORDERED: ALBUTEROL NEB 2.5 MG/3 ML INH STA ×3 (20:08→22:12)
[2018-02-14 20:36] LABS: BASOPHILS % (AUTO) 0.6 %; HGB - HEMOGLOBIN 13.7 g/dL (12.0-16.0); LYMPHOCYTES % (AUTO) 44.8 %; MEAN CORPUSCULAR HEMOGLOBIN 30.2 pg (27.0-31.0); MEAN CORPUSCULAR HGB CONC 32.3 g/dL (32.0-36.0); MEAN CORPUSCULAR VOLUME 93.5 fL (81.0-99.0); MEAN PLATELET VOLUME 9.4 fL (7.9-10.8); MONOCYTES % (AUTO) 12.3 %; NEUTROPHILS % (AUTO) 40.3 %; PLT - PLATELET COUNT 242 10^3/uL (130-450); RED BLOOD COUNT 4.52 10^6/uL (4.20-5.40); RED CELL DISTRIBUTION WIDTH 15.1 % (12.0-15.0)
--- NOTE | 2018-02-14 20:41 | ED Physician Documentation ---
PD HPI CHEST PAIN - Stated complaint Stated Complaint: CHEST PAIN - Chief complaint Chief Complaint: Cardiac - History obtained from History obtained from: Patient - History of Present Illness Timing - onset: Today Timing - onset during: Rest Timing - details: Gradual onset, Still present Quality: Pressure Location: Substernal, Left chest Radiation: Left upper extremity Improved by: Oxygen Associated symptoms: Shortness of air Similar symptoms before: Treatment Recently seen: Not recently seen - Additional information Additional information: Patient is a 53 year old female with a history of asthma, copd daily smoker who is presenting to the emergency department for chest pain, and shortness of breath. patient states that the symptoms started today. Upon initial evaluation in the emergency department Patient was in no acute distress but did have active wheezing. Review of Systems Constitutional: denies: Fever, Chills Cardiac: reports: Chest pain / pressure. denies: Palpitations Respiratory: reports: Dyspnea, Cough, Wheezing GI: denies: Nausea, Vomiting PD PAST MEDICAL HISTORY - Past Medical History Past Medical History: Yes Cardiovascular: Other Respiratory: COPD, Pneumonia Endocrine/Autoimmune: Type 2 diabetes GI: GERD, Hiatal hernia [place]: None : None HEENT: None Psych: Depression, Schizophrenia, Post traumatic stress disorder Musculoskeletal: None Derm: None - Past Surgical History Past Surgical History: Yes General: Bowel surgery Ortho: Other /C[place]: 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 HEENT: Cataracts - Present Medications Home Medications: Ambulatory Orders Medication Instructions Recorded Confirmed Verapamil ER [Calan SA] 180 mg PO DAILY 03/25/16 02/14/18 Lamotrigine 75 mg PO DAILY 06/20/16 02/14/18 OLANZapine [Olanzapine] 10 mg PO BID 06/20/16 02/14/18 Omeprazole [PriLOSEC] 20 mg PO BIDAC 06/20/16 02/14/18 Albuterol Sulf [Ventolin Hfa 2 puffs INH Q4H PRN 12/25/16 02/14/18 Inhaler] Divalproex ER [Depakote ER] 1,250 mg PO QPM 12/25/16 02/14/18 Divalproex ER [Depakote ER] 750 mg PO DAILY 12/25/16 02/14/18 Famotidine 20 mg PO DAILY 12/25/16 02/14/18 Lorazepam 0.5 mg PO DAILY 12/25/16 02/14/18 Rizatriptan Benzoate [Rizatriptan] 10 mg PO ONCE PRN 12/25/16 02/14/18 Thioridazine HCl 50 mg PO BID PRN 12/25/16 02/14/18 Trazodone HCl 100 - 200 mg PO QPM PRN 12/25/16 02/14/18 Sucralfate 1 gm PO ACHS #90 tablet 01/20/17 02/14/18 Promethazine [Phenergan] 25 mg PO Q6H PRN #10 tab 03/19/17 02/14/18 Dexamethasone [Decadron] 4 mg PO DAILY #5 tablet 05/11/17 02/14/18 ARIPiprazole [Aripiprazole] 10 mg PO DAILY 05/23/17 02/14/18 Bupropion HCl [Bupropion HCl Sr] 150 mg PO Q12H 05/23/17 02/14/18 Lactob/S.thermophl/Bifido [Vsl#3] 1 cap PO BIDWM #10 capsule 05/23/17 02/14/18 Prazosin HCl 4 mg PO Q12H 05/23/17 02/14/18 chlorproMAZINE [Thorazine] 25 mg PO Q6H PRN 05/23/17 02/14/18 Cephalexin [Keflex] 500 mg PO Q6HR #27 capsule 07/11/17 02/14/18 Levofloxacin [Levaquin] 750 mg PO DAILY #10 tablet 09/22/17 02/14/18 Cephalexin [Keflex] 500 mg PO QID #20 capsule 02/06/18 02/14/18 HYDROcod/ACETAM 5/325 [[place] 5/325] 1 - 2 ea PO Q6H PRN #7 tablet 02/06/1802/14 Hydrocodone/Acetaminophen 1 - 2 each PO Q6H PRN #7 tablet 02/11/18 02/14/18 [Hydrocodon-Acetaminophen 5-325] Meloxicam [Mobic] 7.5 mg PO BID PRN #20 tablet 02/11/18 02/14/18 - Allergies Allergies/Adverse Reactions: Allergies Allergy/AdvReac Type Severity Reaction Status Date / Time azithromycin Allergy Severe Hives Verified 02/14/18 19:52 haloperidol Allergy Severe Anaphylaxis Verified 02/14/18 19:52 Penicillins Allergy Severe Anaphylaxis Verified 02/14/18 19:52 amoxicillin [Amoxicillin] Allergy Intermediate Rash Verified 02/14/18 19:52 grapefruit Allergy Intermediate Rash Verified 02/14/18 19:52 iodine Allergy Intermediate Rash Verified 02/14/18 19:52 Sulfa (Sulfonamide Allergy Intermediate Rash Verified 02/14/18 19:52 Antibiotics) haloperidol lactate * AdvReac Rash Verified 02/14/18 19:52 [From Haldol] - Social History Does the pt smoke?: Yes Smoking Status: Current every day smoker Does the pt drink ETOH?: No Does the pt have substance abuse?: No - Immunizations Immunizations are current?: No Immunizations: TDAP >10years/unknown - POLST Patient has POLST: No PD ED PE NORMAL - Vitals Vital signs reviewed: Yes - General General: Alert and oriented X 3 - HEENT HEENT: Atraumatic - Neck Neck: Supple, no meningeal sign, No JVD - Cardiac Cardiac: RRR - Abdomen Abdomen: Soft - Derm Derm: Normal color, Warm and dry, No rash - Extremities Extremities: No deformity - Neuro Neuro: Alert and oriented X 3, No motor deficit, Normal speech Eye Opening: Spontaneous - Psych Psych: Normal mood PD ED PE EXPANDED - Respiratory Respiratory: Wheezing, Rhonchi, Right upper lobe, Right middle lobe, Right lower lobe, Left upper lobe, Left lower lobe Results - Vitals Vitals: Vital Signs - 24 hr 02/14/18 02/14/18 02/14/18 19:38 20:20 21:57 Temperature 36.6 C Heart Rate 78 86 105 H Respiratory 18 18 16 Rate Blood Pressure 137/79 H 126/81 H 129/71 O2 Saturation 99 98 92 02/14/18 02/14/18 22:40 23:38 Temperature Heart Rate 106 H 105 H Respiratory 18 18 Rate Blood Pressure 106/55 L 103/61 O2 Saturation 93 89 L Oxygen O2 Source [With Activity] Room air O2 Source [Without Activity] Room air O2 Source Room air - EKG (time done) 1950 Rate: Rate (enter#) (85) Rhythm: NSR [place]: Anterior hemiblock Intervals: Normal ME Compare to prior EKG: Unchanged from prior EKG - Labs Labs: Laboratory Tests 02/14/18 02/14/18 02/14/18 20:27 20:27 20:27 WBC 12.0 H RBC 4.52 Hgb 13.7 Hct 42.2 MCV 93.5 MCH 30.2 MCHC 32.3 RDW 15.1 H Plt Count 242 MPV 9.4 Neut # (Auto) Not Reportable Lymph # (Auto) Not Reportable Jack # (Auto) Not Reportable Eos # (Auto) Not Reportable Baso # (Auto) Not Reportable Absolute Nucleated RBC Not Reportable Total Counted 100 Band Neuts % (Manual) 0 Abnorm Lymph % (Manual) 0 Nucleated RBC % Not Reportable Neutrophils # (Manual) 5.0 Lymphocytes # (Manual) 5.3 H Monocytes # (Manual) 1.3 H Eosinophils # (Manual) 0.4 Basophils # (Manual) 0.0 Differential Comment MANUAL DIFFERENTIAL Manual Slide Review Indicated WBC Morphology NORMAL APPEARANCE Platelet Estimate NORMAL (130-450,000) Platelet Morphology NORMAL APPEARANCE RBC Morph Micro Appear [place] Sodium 138 Potassium 3.7 Chloride 105 Carbon Dioxide 25 Anion Gap 8.0 BUN 12 Creatinine 0.5 Estimated GFR (MDRD) 129 Glucose 93 Calcium 8.9 Total Bilirubin 0.4 AST 20 ALT 15 Alkaline Phosphatase 55 Troponin I < 0.04 Total Protein 6.6 L Albumin 3.2 Globulin 3.4 Albumin/Globulin Ratio 0.9 L Lipase 16 L - Rads (name of study) chest x-ray Radiology: Final report received (no acute findings, mulitple chronic findings) PD MEDICAL DECISION MAKING - ED course Complexity details: reviewed old records, reviewed results, re-evaluated patient , d/w patient, d/w senior talent management consultant ED course: patient was seen and examined at bedside. patient had been treated with a nebulizer enroute but continued to have active wheezing. patient started on additional albuterol and solumedrol. ekg was performed and showed no acute ischemic changes. After 5mg of albuterol patient continued to wheeze. Patient was started on magnesium and terbutaline. Patient was treated with an additional 5mg of albuterol. Patient was re-evaluated and treated with a third round of albuterol 5mg. After the 15mg of albuterol patient continued to have wheezing in all powers. Patient was hypoxic with O2 sats in the high 80s on room air. Case was discussed with the hospitalist and patient was placed in observation for further care. - Sepsis Event Current Stage of Sepsis: Ruled out Vital Signs: Vital Signs - 24 hr 02/14/18 02/14/18 02/14/18 19:38 20:20 21:57 Temperature 36.6 C Heart Rate 78 86 105 H Respiratory 18 18 16 Rate Blood Pressure 137/79 H 126/81 H 129/71 O2 Saturation 99 98 92 02/14/18 02/14/18 22:40 23:38 Temperature Heart Rate 106 H 105 H Respiratory 18 18 Rate Blood Pressure 106/55 L 103/61 O2 Saturation 93 89 L Oxygen O2 Source [With Activity] Room air O2 Source [Without Activity] Room air O2 Source Room air Departure - Departure Disposition: ED Place in Observation Clinical Impression: COPD exacerbation Condition: Good
[2018-02-14 20:42] LABS: ABNORMAL LYMPHS % (MANUAL) 0 %; BAND NEUTROPHILS % (MANUAL) 0 %
[2018-02-14 20:51] LABS: ALBUMIN 3.2 g/dL (3.2-5.5); ALBUMIN/GLOBULIN RATIO 0.9 (1.0-2.2); BILIRUBIN,TOTAL 0.4 mg/dL (0.2-1.0); CALCIUM 8.9 mg/dL (8.5-10.3); CREATININE 0.5 mg/dL (0.4-1.0); TOTAL PROTEIN 6.6 g/dL (6.7-8.2)
[2018-02-14 20:57] LABS: DIFFERENTIAL COMMENT MANUAL DIFFERENTIAL; EOSINOPHILS # (MANUAL) 0.4 10^3/uL (0-0.7); LYMPHOCYTES # (MANUAL) 5.3 10^3/uL (1.5-3.5); LYMPHOCYTES % (MANUAL) 44 %; MONOCYTES # (MANUAL) 1.3 10^3/uL (0.0-1.0); NEUTROPHILS % (MANUAL) 42 %; PLATELET ESTIMATE, MANUAL NORMAL (130-450,000) (NORMAL); PLATELET MORPHOLOGY NORMAL APPEARANCE (NORMAL); RBC MORPHOLOGY (MULTIPLE) HOWELL JOLLY BODIES (NORMAL)
[2018-02-14] MEDS ORDERED: MAGNESIUM SULFATE 2 GRAM 2 GM/50 ML BAG IV ONE (21:15)
[2018-02-14] MEDS ORDERED: TERBUTALINE 1 MG/ML VIAL SUBQ ONE (21:15)
--- NOTE | 2018-02-14 21:15 | XRAY Report ---
EXAM: CHEST RADIOGRAPHY EXAM DATE: 02/14/2018 09:07 PM. CLINICAL HISTORY: Chest pain. COMPARISON: 09/22/2017 chest x-ray. TECHNIQUE: 2 views. FINDINGS: Lungs/Pleura: Prominent interstitial opacities with bronchial thickening. There is no lobar consolida tion. No pleural effusion or pneumothorax. Mediastinum: Heart and mediastinal contours are unremarkable. Other: None. IMPRESSION: Prominent interstitial opacities as above likely secondary to chronic interstitial diseas e. No acute findings. [facility] Referring Provider Line: [phone] SITE ID: [id number]
--- NOTE | 2018-02-14 21:15 | XRAY Preliminary Report ---
Exam: XR CHEST 2 VIEW X-RAY IMPRESSION: Prominent interstitial opacities as above likely secondary to chronic interstitial diseas e. No acute findings. [facility] SITE ID: [id number]
[2018-02-14] MEDS ORDERED: ONDANSETRON 4 MG/2 ML VIAL IVP PRN (23:54)
[2018-02-14] MEDS ORDERED: TEMAZEPAM 15 MG CAPSULE PO PRN (23:54)
[2018-02-14] MEDS ORDERED: ACETAMINOPHEN 325 MG TABLET PO PRN (23:54)
[2018-02-14] MEDS ORDERED: PROCHLORPERAZINE INJ 10 MG in SODIUM CHLORIDE 0.9% 50 ML IV PRN (23:59)
[2018-02-15] MEDS ORDERED: TRAZODONE HCL 100 MG PO PRN (00:02)
[2018-02-15] MEDS ORDERED: MELOXICAM 7.5 MG TABLET PO PRN (00:02)
[2018-02-15] MEDS ORDERED: chlorproMAZINE 25 MG TABLET PO PRN (00:02)
[2018-02-15] MEDS ORDERED: PROMETHAZINE 25 MG TABLET PO PRN (00:02)
[2018-02-15] MEDS ORDERED: PRAZOSIN HCL 4 MG PO SCH (00:15)
[2018-02-15] MEDS ORDERED: BUPROPION HCL 150 MG PO SCH (00:15)
[2018-02-15] MEDS ORDERED: traZODone 50 MG TABLET PO PRN (00:18)
[2018-02-15] MEDS: PRAZOSIN 1 MG CAPSULE PO SCH ×2 (00:41→08:46)
[2018-02-15] MEDS: guaiFENesin 600 MG TABLET PO SCH ×3 (00:41→21:01)
[2018-02-15] MEDS: SODIUM CHLORIDE FLUSH 0.9% 10 ML SYRINGE IVP SCH ×3 (00:41→14:16)
[2018-02-15] MEDS: NICOTINE 14 MG PATCH TOP SCH ×2 (01:15→08:44)
[2018-02-15] MEDS: D5NS W/20 MEQ KCL 1,000 ML IV SCH ×2 (01:15→15:50)
[2018-02-15] MEDS: buPROPion SR 150 MG TABLET PO SCH ×3 (01:16→21:01)
[2018-02-15] MEDS: MORPHINE 2 MG/ML SYRINGE IVP PRN ×2 (01:16→18:47)
[2018-02-15] MEDS: IPRATROPIUM/ALBUTEROL 3 ML NEB INH PRN (01:27)
[2018-02-15] MEDS: LEVALBUTEROL 1.25 MG/3 ML NEB INH SCH ×5 (01:48→21:14)
--- NOTE | 2018-02-15 04:32 | HISTORY & PHYSICAL EXAMINATION ---
DATE OF SERVICE: 02/15/2018 Physician: Kat Linton MD HISTORY OF PRESENT ILLNESS: This is a 53-year-old white female with a history of smoking, COPD, schizoaffective disorder, prior suicide attempts, seizure disorder, who presents with rapidly worsening shortness of breath with chest heaviness, nonproductive cough, and was treated for COPD exacerbation in the emergency room with 1 nebulizer en route, 4 nebulizer treatments in the ER, steroids, terbutaline, magnesium and still continues to have feelings of air hunger plus wheezing. She is being brought in for COPD exacerbation. PAST MEDICAL HISTORY 1. COPD. 2. Schizoaffective disorder with prior suicide attempts. 3. Seizure disorder. 4. Tobacco use. ALLERGIES 1. ZITHROMAX. 2. HALDOL. 3. PENICILLIN. 4. AMOXICILLIN. 5. GRAPEFRUIT. 6. IODINE. 7. SULFA. MEDICATIONS AT HOME 1. Thorazine 25 mg q.6h. p.r.n. agitation. 2. Verapamil ER 180 mg daily. 3. Trazodone 100-200 mg every evening p.r.n. insomnia. 4. Thioridazine 50 mg p.o. b.i.d. 5. Sucralfate 1 gram p.o. before meals and at bedtime. 6. Rizatriptan 10 mg p.r.n. 7. Phenergan 25 mg p.r.n. nausea. 8. Prazosin 4 mg b.i.d. 9. Prilosec 20 mg b.i.d. 10. Mobic 7.5 mg b.i.d. p.r.n. 11. Lorazepam 0.5 mg p.o. daily. 12. Lamotrigine 75 mg daily. 13. Lactobacillus b.i.d. 14. [place] p.r.n. 15. Depakote 750 mg in the a.m. and 1250 mg in the p.m. 16. Decadron 4 mg daily. 17. Bupropion 150 mg b.i.d. 18. Ventolin inhaler p.r.n. 19. Aripiprazole 10 mg daily. 20. She was also in the past on Levaquin and Keflex for home antibiotics, unknown when these were stopped. FAMILY HISTORY: No inherited disease. SOCIAL HISTORY: The patient is a smoker of 1/2 to 1 pack a day, does not abuse alcohol or illicit drugs. REVIEW OF SYSTEMS: The patient denies any recent fever, travel out of the country, gastrointestinal complaints, and she is compliant with her medications. A comprehensive review of systems was performed and the pertinent positives are above. PHYSICAL EXAMINATION GENERAL: White female who appears older than her age. She is edentulous. VITAL SIGNS: Blood pressure 103/61, pulse of 105 in sinus rhythm after the 4 nebulizers. Prior to that, her heart rate was 78 in sinus rhythm, respiratory rate 18, O2 saturation 89% on room air, afebrile. HEENT: Poor oral dentition, mostly edentulous, dry oral mucosa. NECK: Without JVD or carotid bruits. CHEST: Diffuse wheezes in every lung field and a prolonged expiratory phase. There is no stridor. She is not using her accessory muscles of respiration. HEART: Heart sounds are distant, normal. No audible murmur. ABDOMEN: Soft, nontender. EXTREMITIES: No clubbing, cyanosis, or edema. No calf tenderness. NEUROLOGIC: Intact. LABORATORIES: Normal electrolytes. Normal BUN and creatinine. Not detectable troponin. Normal liver tests. White blood count 12, hemoglobin 13.7, platelet count 242 with a right shift. No urinalysis was done. No INR was done. No D-dimer was done. EKG: Normal sinus rhythm, left anterior fascicular block, RSR prime in V1 and poor R-wave progression. Chest x-ray showed chronic changes, no acute lobar findings. IMPRESSION/DIAGNOSES 1. Chronic obstructive pulmonary disease exacerbation. 2. Schizoaffective disorder history. 3. Seizure disorder history. 4. Tachycardia, likely from nebulizers. PLAN: Place the patient in observation. Telemetry. IV fluids. Start Mucinex, IV steroids, nebulizers around the clock and p.r.n. Obtain a urinalysis. Obtain a D-dimer and if it is elevated, then proceed to a CT of the chest to rule out PE. Consider an echo to evaluate the chest pain component. However, she tells me "this is how I feel when I get a COPD exacerbation." Nicoderm for her smoking history will be ordered. Smoking cessation was discussed. Since there are no signs of bronchitis or pneumonia, no empiric antibiotics will be started. CODE STATUS: FULL CODE. DVT PROPHYLAXIS: SCDs. ATTESTATION: The patient is expected to be discharged or transferred to another facility within 96 hours: Yes. TD: 02/15/2018 00:48
[2018-02-15 05:40] LABS: CALCIUM 9.1 mg/dL (8.5-10.3); CREATININE 0.8 mg/dL (0.4-1.0); MAGNESIUM 2.6 mg/dL (1.7-2.8)
[2018-02-15 05:43] LABS: BASOPHILS % (AUTO) 0.3 %; HGB - HEMOGLOBIN 13.6 g/dL (12.0-16.0); LYMPHOCYTES # (AUTO) 1.5 10^3/uL (1.5-3.5); LYMPHOCYTES % (AUTO) 15.8 %; MEAN CORPUSCULAR HEMOGLOBIN 30.9 pg (27.0-31.0); MEAN CORPUSCULAR HGB CONC 33.2 g/dL (32.0-36.0); MEAN CORPUSCULAR VOLUME 92.9 fL (81.0-99.0); MONOCYTES # (AUTO) 0.1 10^3/uL (0.0-1.0); MONOCYTES % (AUTO) 1.1 %; NEUTROPHILS # (AUTO) 7.6 10^3/uL (1.5-6.6); NEUTROPHILS % (AUTO) 82.8 %; PLT - PLATELET COUNT 241 10^3/uL (130-450); RED BLOOD COUNT 4.39 10^6/uL (4.20-5.40); RED CELL DISTRIBUTION WIDTH 15.5 % (12.0-15.0); WHITE BLOOD COUNT 9.2 x10^3/uL (4.8-10.8)
[2018-02-15] MEDS: SUCRALFATE 1 GM/10 ML UDC PO SCH ×4 (06:28→21:04)
[2018-02-15] MEDS: methylPREDNISolone SUCCINATE 125 MG/2 ML VIAL IVP SCH ×3 (06:28→21:04)
[2018-02-15 06:43] LABS: BILIRUBIN,URINE NEGATIVE (NEGATIVE); GLUCOSE, URINE (UA) NEGATIVE (NEGATIVE); KETONES,URINE (UA) TRACE mg/dL (NEGATIVE); LEUKOCYTE ESTERASE, URINE NEGATIVE (NEGATIVE); NITRITE,URINE NEGATIVE (NEGATIVE); OCCULT BLOOD,URINE NEGATIVE (NEGATIVE); PROTEIN,URINE TRACE mg/dL (NEGATIVE); UROBILINOGEN,URINE 0.2 (NORMAL) E.U./dL (NORMAL)
[2018-02-15 06:49] LABS: BACTERIA,URINE Few /HPF (None Seen); CASTS, URINE 6-10 Hyaline Casts /LPF; CLARITY,URINE CLEAR (CLEAR); MUCUS,URINE Moderate Strands; RBC,URINE 0-5 /HPF (0-5); SQUAMOUS EPITHELIAL CELL,UR MOD Squamous (<= Few)
[2018-02-15] MEDS ORDERED: NON FORMULARY MED (Sucralfate [Sucralfate] 1 GM) PO SCH (07:00)
[2018-02-15] MEDS: FAMOTIDINE 20 MG TABLET PO SCH (08:45)
[2018-02-15] MEDS: HYDROcod/ACETAM 5/325 MG TABLET PO PRN ×2 (08:45→15:53)
[2018-02-15] MEDS: POLYETHYLENE GLYCOL 3350 17 GM PACKET PO SCH (08:46)
[2018-02-15] MEDS: DIVALPROEX ER 250 MG TABLET PO SCH ×2 (08:46→21:06)
[2018-02-15] MEDS: LORazepam 0.5 MG TABLET PO SCH (08:46)
[2018-02-15] MEDS ORDERED: FAMOTIDINE 20 MG TABLET PO SCH (09:00)
[2018-02-15] MEDS ORDERED: lamoTRIgine 25 MG TABLET PO SCH (09:00)
[2018-02-15] MEDS ORDERED: VERAPAMIL ER 180 MG TABLET PO SCH (09:00)
[2018-02-15] MEDS ORDERED: PRAZOSIN 1 MG CAPSULE PO SCH (11:20)
[2018-02-15] MEDS ORDERED: PROCHLORPERAZINE 10 MG/2 ML VIAL IVP PRN (11:41)
[2018-02-15] MEDS: chlorproMAZINE 25 MG TABLET PO SCH ×2 (13:23→21:01)
[2018-02-15] MEDS: OLANZapine ODT 5 MG TABLET TL SCH ×2 (13:23→21:03)
[2018-02-15] MEDS: ARIPiprazole 5 MG TABLET PO SCH (13:23)
--- NOTE | 2018-02-15 15:47 | Nuclear Medicine Prelim Report ---
Exam: NM LUNG VENT/PERF V/Q IMPRESSION: 1. No ventilation/perfusion mismatches to indicate pulmonary emboli. Low probability for acute pulmon bronwyn embolism. [facility] SITE ID: [id number]
--- NOTE | 2018-02-15 15:47 | Nuclear Medicine Report ---
EXAM: VENTILATION/PERFUSION SCAN (V/Q SCAN) EXAM DATE: 02/15/2018 03:06 PM. CLINICAL HISTORY: Hypoxia, elevated d-dimer, chest pain. COMPARISON: Chest radiograph 02/14/2018 2050 hrs.. TECHNIQUE: Patient was administered 37.6 mCi of technetium 99m DTPA aerosol by inhalation and 8 stand carlos ventilation images of the lungs were obtained. Next, the patient was injected with 4.8 mCi of devi hnetium 99m MAA intravenously and 8 standard perfusion images of the lungs were obtained. FINDINGS: Perfusion images demonstrate mildly inhomogeneous perfusion to the lungs bilaterally without convinci ng segmental deficit. Ventilatory images demonstrate overall substantially worse but otherwise corres ponding radiotracer distribution without convincing mismatch. There is moderate central airway deposi tion suggesting obstructive pulmonary physiology. Comparison chest radiographic demonstrates no signi ficant focal pulmonary opacities. IMPRESSION: 1. No ventilation/perfusion mismatches to indicate pulmonary emboli. Low probability for acute pulmon bronwyn embolism. [facility] Referring Provider Line: [phone] SITE ID: [id number]
[2018-02-15] MEDS ORDERED: CARBAMIDE PEROXIDE 6.5% OTIC DROPS EACHEAR SCH (16:40)
[2018-02-15] MEDS ORDERED: SODIUM CHLORIDE 0.65% NASAL SPRAY NAS PRN (16:41)
[2018-02-15] MEDS: OXYMETAZOLINE NASAL SPRAY NAS SCH ×2 (18:39→21:04)
[2018-02-15] MEDS: FLUTICASONE NASAL SPRAY NAS SCH (18:45)
[2018-02-15] MEDS: traZODone 50 MG TABLET PO SCH (21:00)
[2018-02-16] MEDS: SODIUM CHLORIDE FLUSH 0.9% 10 ML SYRINGE IVP SCH ×3 (00:23→16:20)
[2018-02-16] MEDS: HYDROcod/ACETAM 5/325 MG TABLET PO PRN ×3 (02:46→14:39)
[2018-02-16] MEDS: IPRATROPIUM/ALBUTEROL 3 ML NEB INH PRN ×2 (02:59→13:25)
[2018-02-16 06:14] LABS: BASOPHILS % (AUTO) 0.2 %; HGB - HEMOGLOBIN 13.2 g/dL (12.0-16.0); LYMPHOCYTES % (AUTO) 7.4 %; MEAN CORPUSCULAR HEMOGLOBIN 30.4 pg (27.0-31.0); MEAN CORPUSCULAR HGB CONC 32.2 g/dL (32.0-36.0); MEAN CORPUSCULAR VOLUME 94.4 fL (81.0-99.0); MEAN PLATELET VOLUME 9.9 fL (7.9-10.8); MONOCYTES % (AUTO) 3.9 %; NEUTROPHILS % (AUTO) 88.5 %; PLT - PLATELET COUNT 240 10^3/uL (130-450); RED BLOOD COUNT 4.34 10^6/uL (4.20-5.40); RED CELL DISTRIBUTION WIDTH 15.4 % (12.0-15.0); WHITE BLOOD COUNT 31.9 x10^3/uL (4.8-10.8)
[2018-02-16 06:20] LABS: ABNORMAL LYMPHS % (MANUAL) 0 %
[2018-02-16 06:26] LABS: CREATININE 0.6 mg/dL (0.4-1.0); MAGNESIUM 2.3 mg/dL (1.7-2.8)
[2018-02-16] MEDS: methylPREDNISolone SUCCINATE 125 MG/2 ML VIAL IVP SCH ×3 (06:26→21:14)
[2018-02-16] MEDS: SUCRALFATE 1 GM/10 ML UDC PO SCH ×4 (06:26→21:13)
[2018-02-16] MEDS: SODIUM CHLORIDE FLUSH 0.9% 10 ML SYRINGE IVP PRN ×3 (06:26→13:44)
[2018-02-16 06:57] LABS: BAND NEUTROPHILS % (MANUAL) 6 %; LYMPHOCYTES # (MANUAL) 5.4 10^3/uL (1.5-3.5); LYMPHOCYTES % (MANUAL) 17 %; MONOCYTES # (MANUAL) 0.6 10^3/uL (0.0-1.0); NEUTROPHILS # (MANUAL) 25.8 10^3/uL (1.5-6.6); NEUTROPHILS % (MANUAL) 75 %; PLATELET ESTIMATE, MANUAL NORMAL (130-450,000) (NORMAL); RBC MORPHOLOGY (MULTIPLE) NORMAL APPEARANCE (NORMAL)
[2018-02-16 06:58] LABS: DIFFERENTIAL COMMENT MANUAL DIFFERENTIAL
[2018-02-16 07:03] LABS: HB2 TOTAL 14.2 g/dL; HEMOGLOBIN A1C 0.51 g/dL; HEMOGLOBIN A1C % 5.4 % (4.6-6.2)
--- NOTE | 2018-02-16 07:46 | PROVIDER PROGRESS NOTE ---
Subjective - Prog Note Date Prog Note Date: 02/16/18 Prog Note Time: 07:44 - Subjective Pt reports feeling: Improved Current Medications - Current Medications Current Medications: Active Medications Acetaminophen (Tylenol) 650 mg PO Q4HR PRN PRN Reason: Pain or Fever > 38C (100.4F) Hydrocodone Bitart/Acetaminophen ([place] 5/325) 1 - 2 tab PO Q6H PRN PRN Reason: PAIN Last Admin: 02/16/18 02:46 Dose: 2 tab Albuterol/Ipratropium (Duoneb) 3 ml INH Q4HR PRN PRN Reason: Wheezing Last Admin: 02/16/18 02:59 Dose: 3 ml Aripiprazole (Abilify) 10 mg PO DAILY [facility] Last Admin: 02/15/18 13:23 Dose: 10 mg Bupropion HCl (Wellbutrin Sr) 150 mg PO BID [facility] Last Admin: 02/15/18 21:01 Dose: 150 mg Chlorpromazine HCl (Thorazine) 25 mg PO BID [facility] Last Admin: 02/15/18 21:01 Dose: 25 mg Divalproex Sodium (Depakote Er) 750 mg PO DAILY [facility] Last Admin: 02/15/18 08:46 Dose: 750 mg Divalproex Sodium (Depakote Er) 1,250 mg PO QPM [facility] Last Admin: 02/15/18 21:06 Dose: 1,250 mg Famotidine (Pepcid) 20 mg PO DAILY [facility] Last Admin: 02/15/18 08:45 Dose: 20 mg Fluticasone Propionate (Flonase) 2 sprays ABE DAILY [facility] Last Admin: 02/15/18 18:45 Dose: Not Given Guaifenesin (Mucinex) 600 mg PO BID [facility] Last Admin: 02/15/18 21:01 Dose: 600 mg Levalbuterol HCl (Xopenex) 1.25 mg INH RTQID [facility] Last Admin: 02/15/18 21:14 Dose: 1.25 mg Lorazepam (Ativan) 0.5 mg PO DAILY [facility] Last Admin: 02/15/18 08:46 Dose: 0.5 mg Methylprednisolone Sodium Succinate (Solu-Medrol (125mg Vial)) 60 mg IVP TID [facility] Morphine Sulfate (Morphine) 2 mg IVP Q2H PRN PRN Reason: Dyspnea Last Admin: 02/15/18 18:47 Dose: 2 mg Nicotine (Nicoderm) 1 patch TOP DAILY [facility] Last Admin: 02/15/18 08:44 Dose: 1 patch Olanzapine (Zyprexa Odt) 10 mg TL BID [facility] Last Admin: 02/15/18 21:03 Dose: 10 mg Oxymetazoline HCl (Afrin) 2 sprays ABE BID [facility] Stop: 02/18/18 16:40 Last Admin: 02/15/18 21:04 Dose: Not Given Polyethylene Glycol (Miralax) 17 gm PO DAILY [facility] Last Admin: 02/15/18 08:46 Dose: Not Given Prochlorperazine Edisylate (Compazine Inj) 10 mg IVP Q8H PRN PRN Reason: Nausea / Vomiting Promethazine HCl (Phenergan) 25 mg PO Q6H PRN PRN Reason: Nausea / Vomiting Sodium Chloride (Normal Saline Flush 0.9%) 10 ml IVP PRN PRN PRN Reason: NEEDED PER PROVIDER ORDERS Last Admin: 02/16/18 06:30 Dose: 10 ml Sodium Chloride (Normal Saline Flush 0.9%) 10 ml IVP 0100,0900,1700 [facility] Last Admin: 02/16/18 00:23 Dose: 10 ml Sodium Chloride (Mower) 2 sprays ABE Q4HR PRN PRN Reason: Nasal Congestion Last Admin: 02/15/18 18:37 Dose: 2 spr Sucralfate (Carafate) 1 gm PO 0700,1100,1600,2200 [facility] Last Admin: 02/16/18 06:26 Dose: 1 gm Temazepam (Restoril) 15 mg PO QPM PRN PRN Reason: Insomnia Trazodone HCl (Desyrel) 400 mg PO QPM [facility] Last Admin: 02/15/18 21:00 Dose: 400 mg Verapamil ER [Calan SA] 180 mg PO DAILY 03/25/16 OLANZapine [Olanzapine] 10 mg PO BID 06/20/16 Albuterol Sulf [Ventolin Hfa Inhaler] 2 puffs INH Q4H PRN 12/25/16 Divalproex ER [Depakote ER] 1,250 mg PO QPM 12/25/16 Divalproex ER [Depakote ER] 750 mg PO DAILY 12/25/16 Famotidine 20 mg PO DAILY 12/25/16 Lorazepam 0.5 mg PO DAILY 12/25/16 Trazodone HCl 400 mg PO QPM 12/25/16 ARIPiprazole [Aripiprazole] 10 mg PO DAILY 05/23/17 Bupropion HCl [Bupropion HCl Sr] 150 mg PO Q12H 05/23/17 chlorproMAZINE [Thorazine] 25 mg PO BID 05/23/17 Fluticasone/Salmeterol [Advair 250-50 Diskus] 1 puffs INH BID 02/15/18 Sucralfate [Sucralfate] 1 tab PO DAILY 02/15/18 Objective - Vital Signs/Intake & Output Reviewed Vital Signs: Yes Vital Signs: Vital Signs x48h Temp Pulse Pulse Resp BP Pulse Ox 02/16/18 07:30 36.8 C 88 20 115/62 95 02/16/18 05:00 36.9 C 80 18 117/60 97 02/16/18 02:59 77 18 Intake & Output: Intake & Output 02/13/18 02/14/18 02/15/18 02/16/18 23:59 23:59 23:59 23:59 Intake Total 1677 1100 Balance 1677 1100 - Objective General Appearance: positive: Alert, Moderate distress, Anxious Eyes Bilateral: positive: Normal inspection, No lid inflammation Eyes: OU Conjunctivae pale ENT: positive: ENT inspection nml, Pharynx nml, Pharyngeal erythema, Dry mucous membranes Neck: positive: Nml inspection, No JVD, Lymphadenopathy (R), Lymphadenopathy (L) , Stiff neck Respiratory: positive: Chest non-tender, Wheezes, Rhonchi Cardiovascular: positive: No gallop, Irregularly irregular, JVD present, Systolic murmur, Decreased pulse(s) Peripheral Pulses: 1+ Radial (R), 1+ Radial (L) Abdomen: positive: Non-tender, Nml bowel sounds, Other (obese, soft) Back: positive: Nml inspection Skin: positive: No rash, Warm, Dry, Diaphoresis Extremities: positive: Non-tender, Pedal edema, Joint swelling Neurologic/Psychiatric: positive: Oriented x3, CN's nml (2-12), Weakness, Sensory loss, Slurred/abnml speech, Depressed mood/affect, Other (cognitive delay) Reflexes: Bicep (R): 3+, Bicep (L): 3+ - Lab Results Fish Bones: 02/16/18 05:37 02/16/18 05:37 Other Labs: Lab Results x24hrs 02/16/18 02/16/18 02/16/18 Range/Units 05:37 05:37 05:37 WBC (4.8-10.8) x10^3/uL RBC (4.20-5.40) 10^6/uL Hgb (12.0-16.0) g/dL Hct (37.0-47.0) % MCV (81.0-99.0) fL MCH (27.0-31.0) pg MCHC (32.0-36.0) g/dL RDW (12.0-15.0) % Plt Count (130-450) 10^3/uL MPV (7.9-10.8) fL Neut # (Auto) Lymph # (Auto) [place] # (Auto) Eos # (Auto) Baso # (Auto) Absolute Nucleated RBC Total Counted Band Neuts % (Manual) (0 - 10) % Abnorm Lymph % (Manual) % Nucleated RBC % Neutrophils # (Manual) (1.5-6.6) 10^3/uL Lymphocytes # (Manual) (1.5-3.5) 10^3/uL Monocytes # (Manual) (0.0-1.0) 10^3/uL Eosinophils # (Manual) (0-0.7) 10^3/uL Basophils # (Manual) (0-0.1) 10^3/uL Differential Comment Platelet Estimate (NORMAL) RBC Morph Micro Appear (NORMAL) Sodium (135-145) mmol/L Potassium (3.5-5.0) mmol/L Chloride (101-111) mmol/L Carbon Dioxide (21-32) mmol/L Anion Gap (6-13) BUN (6-20) mg/dL Creatinine (0.4-1.0) mg/dL Estimated GFR (MDRD) (>89) Glucose (70-100) mg/dL Glycated Hemoglobin 5.4 (4.6-6.2) % Estim Average Glucose 108 H (70-100) Calcium (8.5-10.3) mg/dL Magnesium (1.7-2.8) mg/dL B-Natriuretic Peptide 556 H (5-100) pg/mL TSH 0.78 (0.34-5.60) uIU/mL 02/16/18 02/16/18 Range/Units 05:37 05:37 WBC 31.9 H (4.8-10.8) x10^3/uL RBC 4.34 (4.20-5.40) 10^6/uL Hgb 13.2 (12.0-16.0) g/dL Hct 41.0 (37.0-47.0) % MCV 94.4 (81.0-99.0) fL MCH 30.4 (27.0-31.0) pg MCHC 32.2 (32.0-36.0) g/dL RDW 15.4 H (12.0-15.0) % Plt Count 240 (130-450) 10^3/uL MPV 9.9 (7.9-10.8) fL Neut # (Auto) Not Reportable Lymph # (Auto) Not Reportable [place] # (Auto) Not Reportable Eos # (Auto) Not Reportable Baso # (Auto) Not Reportable Absolute Nucleated RBC Not Reportable Total Counted 100 Band Neuts % (Manual) 6 (0 - 10) % Abnorm Lymph % (Manual) 0 % Nucleated RBC % Not Reportable Neutrophils # (Manual) 25.8 H (1.5-6.6) 10^3/uL Lymphocytes # (Manual) 5.4 H (1.5-3.5) 10^3/uL Monocytes # (Manual) 0.6 (0.0-1.0) 10^3/uL Eosinophils # (Manual) 0.0 (0-0.7) 10^3/uL Basophils # (Manual) 0.0 (0-0.1) 10^3/uL Differential Comment MANUAL DIFFERENTIAL Platelet Estimate NORMAL (130-450,000) (NORMAL) RBC Morph Micro Appear NORMAL APPEARANCE (NORMAL) Sodium 141 (135-145) mmol/L Potassium 4.8 (3.5-5.0) mmol/L Chloride 108 (101-111) mmol/L Carbon Dioxide 26 (21-32) mmol/L Anion Gap 7.0 (6-13) BUN 14 (6-20) mg/dL Creatinine 0.6 (0.4-1.0) mg/dL Estimated GFR (MDRD) 104 (>89) Glucose 155 H (70-100) mg/dL Glycated Hemoglobin (4.6-6.2) % Estim Average Glucose (70-100) Calcium 9.0 (8.5-10.3) mg/dL Magnesium 2.3 (1.7-2.8) mg/dL B-Natriuretic Peptide (5-100) pg/mL TSH (0.34-5.60) uIU/mL - Diagnostic Imaging Diagnostic Imaging Results: positive: Final report reviewed ABX Reporting Has patient been on IV antibiotics over the past 48 hours?: Yes Assessment/Plan - Problem List (1) COPD exacerbation Impression: The patient is audibly wheezy from the door way, that has improved to bedside wheezing today. She continues on scheduled Xopenex, I.S, IV steroids that have been reduced today, expectorants, nasal sprays, and morphine as needed. A 2- view chest ray was obtained upon admission and shows prominent interstitial opacities, indicating likely advanced disease. The patient admits to continued tobacco dependence. She claims that she has tried to quit in the past, but her insurance does not cover the nicotine patches. Pulmonary rehab has been suggested and she states that upon discharge she will "give it a try". Plan: Continue plan of care including frequent nursing, respiratory care and pulmonary rehab consultation upon discharge. (2) Schizoaffective disorder Impression: The patient is prescribed anti-seizure medications, Abilify and Wellbutrin for mental wellness. She appears stable upon exam and claims to be happy with her care. She has suicide attempts listed in her past medical history, but denies such thoughts when asked. Plan: Continue to monitor for changes in behavior and continue medications. (3) Seizure disorder Impression: The patient is prescribed Depakote and Lamictal at home for a known seizure history. Plan: Continue home meds and monitor for evidence of seizures. (4) Tachycardia Impression: The patient has been monitored on telemetry and has had elevated heart rates from 90-120's. She had been on full dose IV steroids that have been tapered down today. Plan: Continue to monitor (5) Cerumen impaction Impression: Debrox drops have been added x1 for this problem. The patient denies difficulty with hearing, but upon exam, she is found to have so much debris that the tympanic membrane is just barely visible. Plan: Monitor for improvement. Qualifiers: Laterality: left Qualified Code(s): H61.22 - Impacted cerumen, left ear (6) Chronic sinusitis Impression: Upon exam the patient is noted to have fluid behind bilateral tympanic membranes which is an expected finding in patient with chronic COPD. Plan: Give Afrin spray x3 days, and Nasonex daily. She can have saline nasal mist PRN. Qualifiers: Sinusitis location: unspecified location Qualified Code(s): J32.9 - Chronic sinusitis, unspecified (7) Hypoxia Impression: The patient admits to chronic oxygen dependence, but states that she recently had a room mate who used her oxygen tubing for drug use, so she has not been able to use her oxygen. She will likely qualify for home oxygen, but we will sent a fresh set of tubing home for her as well. She was found to be hypoxic when presenting to the ED (8) Tobacco dependence Impression: The patient has been a life-long smoker and has had several failed attempts of quitting. She states that she uses cigarettes to "calm my nerves". She believes that nicotine patches are not covered by her insurance. I have suggested pulmonary rehab, as they cover nicotine patches in most cases when enrolled in the program. The patient is prescribed Wellbutrin which normal helps with cessation. Plan: Continue nicotine patch here.
[2018-02-16] MEDS: LEVALBUTEROL 1.25 MG/3 ML NEB INH SCH ×4 (07:54→18:22)
[2018-02-16] MEDS: LORazepam 0.5 MG TABLET PO SCH (09:05)
[2018-02-16] MEDS: guaiFENesin 600 MG TABLET PO SCH ×2 (09:06→21:16)
[2018-02-16] MEDS: chlorproMAZINE 25 MG TABLET PO SCH ×2 (09:06→21:16)
[2018-02-16] MEDS: buPROPion SR 150 MG TABLET PO SCH ×2 (09:07→21:16)
[2018-02-16] MEDS: ARIPiprazole 5 MG TABLET PO SCH (09:08)
[2018-02-16] MEDS: OLANZapine ODT 5 MG TABLET TL SCH ×2 (09:08→21:15)
[2018-02-16] MEDS: NICOTINE 14 MG PATCH TOP SCH (09:09)
[2018-02-16] MEDS: FAMOTIDINE 20 MG TABLET PO SCH (09:09)
[2018-02-16] MEDS: FLUTICASONE NASAL SPRAY NAS SCH (09:10)
[2018-02-16] MEDS: POLYETHYLENE GLYCOL 3350 17 GM PACKET PO SCH (09:10)
[2018-02-16] MEDS: DIVALPROEX ER 250 MG TABLET PO SCH ×2 (09:12→21:14)
[2018-02-16] MEDS: OXYMETAZOLINE NASAL SPRAY NAS SCH ×2 (09:13→21:16)
[2018-02-16] MEDS: SACCHAROMYCES BOULARDII 250 MG CAPSULE PO SCH ×2 (09:26→16:22)
[2018-02-16] MEDS: CLINDAMYCIN 150 MG CAPSULE PO SCH ×3 (09:26→21:15)
[2018-02-16] MEDS: BUDESONIDE 0.5 MG/2 ML NEB INH SCH ×2 (09:59→18:22)
[2018-02-16] MEDS: traZODone 50 MG TABLET PO SCH (21:15)
[2018-02-17] MEDS: SODIUM CHLORIDE FLUSH 0.9% 10 ML SYRINGE IVP SCH ×3 (00:29→18:17)
[2018-02-17] MEDS: HYDROcod/ACETAM 5/325 MG TABLET PO PRN ×6 (00:43→18:21)
[2018-02-17] MEDS: CLINDAMYCIN 150 MG CAPSULE PO SCH ×3 (05:39→22:18)
[2018-02-17] MEDS: methylPREDNISolone SUCCINATE 125 MG/2 ML VIAL IVP SCH ×3 (05:40→22:18)
[2018-02-17] MEDS: SODIUM CHLORIDE FLUSH 0.9% 10 ML SYRINGE IVP PRN ×2 (05:41→13:50)
[2018-02-17] MEDS: SUCRALFATE 1 GM/10 ML UDC PO SCH ×4 (06:06→22:18)
[2018-02-17] MEDS: LEVALBUTEROL 1.25 MG/3 ML NEB INH SCH ×4 (07:40→18:24)
[2018-02-17] MEDS: BUDESONIDE 0.5 MG/2 ML NEB INH SCH ×2 (07:40→18:24)
[2018-02-17] MEDS: SACCHAROMYCES BOULARDII 250 MG CAPSULE PO SCH ×2 (08:06→18:17)
[2018-02-17] MEDS: POLYETHYLENE GLYCOL 3350 17 GM PACKET PO SCH (08:18)
[2018-02-17] MEDS: NICOTINE 14 MG PATCH TOP SCH (08:20)
[2018-02-17] MEDS: DIVALPROEX ER 250 MG TABLET PO SCH ×2 (08:21→21:05)
[2018-02-17] MEDS: buPROPion SR 150 MG TABLET PO SCH ×2 (08:23→21:04)
[2018-02-17] MEDS: chlorproMAZINE 25 MG TABLET PO SCH ×2 (08:24→21:04)
[2018-02-17] MEDS: ARIPiprazole 5 MG TABLET PO SCH (08:24)
[2018-02-17] MEDS: OLANZapine ODT 5 MG TABLET TL SCH ×2 (08:25→21:06)
[2018-02-17] MEDS: guaiFENesin 600 MG TABLET PO SCH ×2 (08:25→21:05)
[2018-02-17] MEDS: FAMOTIDINE 20 MG TABLET PO SCH (08:26)
[2018-02-17] MEDS: LORazepam 0.5 MG TABLET PO SCH (08:26)
[2018-02-17] MEDS: FLUTICASONE NASAL SPRAY NAS SCH (08:30)
[2018-02-17] MEDS: OXYMETAZOLINE NASAL SPRAY NAS SCH ×2 (08:31→22:19)
--- NOTE | 2018-02-17 13:28 | PROVIDER PROGRESS NOTE ---
Subjective - Prog Note Date Prog Note Date: 02/17/18 Prog Note Time: 13:25 - Subjective Pt reports feeling: Improved Subjective: Kami complains about "going home before she is ready". She denies SOB, chest pain, nausea, vomiting, or a new cough. She still requires oxygen, but breathing efforts are much less. Current Medications - Current Medications Current Medications: Active Medications Acetaminophen (Tylenol) 650 mg PO Q4HR PRN PRN Reason: Pain or Fever > 38C (100.4F) Hydrocodone Bitart/Acetaminophen ([place] 5/325) 1 - 2 tab PO Q6H PRN PRN Reason: PAIN Last Admin: 02/18/18 00:58 Dose: 2 tab Albuterol/Ipratropium (Duoneb) 3 ml INH Q4HR PRN PRN Reason: Wheezing Last Admin: 02/16/18 13:25 Dose: 3 ml Aripiprazole (Abilify) 10 mg PO DAILY [facility] Last Admin: 02/17/18 08:24 Dose: 10 mg Budesonide (Pulmicort) 0.5 mg INH RTBID [facility] Last Admin: 02/17/18 18:24 Dose: 0.5 mg Bupropion HCl (Wellbutrin Sr) 150 mg PO BID [facility] Last Admin: 02/17/18 21:04 Dose: 150 mg Chlorpromazine HCl (Thorazine) 25 mg PO BID [facility] Last Admin: 02/17/18 21:04 Dose: 25 mg Clindamycin HCl (Cleocin) 450 mg PO Q8HR [facility] Last Admin: 02/18/18 05:58 Dose: 450 mg Divalproex Sodium (Depakote Er) 750 mg PO DAILY [facility] Last Admin: 02/17/18 08:21 Dose: 750 mg Divalproex Sodium (Depakote Er) 1,250 mg PO QPM [facility] Last Admin: 02/17/18 21:05 Dose: 1,250 mg Docusate Sodium (Colace 250mg Capsule) 250 - 500 mg PO DAILY [facility] Famotidine (Pepcid) 20 mg PO DAILY [facility] Last Admin: 02/17/18 08:26 Dose: 20 mg Fluticasone Propionate (Flonase) 2 sprays ABE DAILY [facility] Last Admin: 02/17/18 08:30 Dose: 2 sprays Guaifenesin (Mucinex) 600 mg PO BID [facility] Last Admin: 02/17/18 21:05 Dose: 600 mg Levalbuterol HCl (Xopenex) 1.25 mg INH RTQID [facility] Last Admin: 02/17/18 18:24 Dose: 1.25 mg Lorazepam (Ativan) 0.5 mg PO DAILY [facility] Last Admin: 02/17/18 08:26 Dose: 0.5 mg Methylprednisolone Sodium Succinate (Solu-Medrol (125mg Vial)) 40 mg IVP TID [facility] Last Admin: 02/18/18 05:58 Dose: 40 mg Morphine Sulfate (Morphine) 2 mg IVP Q2H PRN PRN Reason: Dyspnea Last Admin: 02/15/18 18:47 Dose: 2 mg Nicotine (Nicoderm) 1 patch TOP DAILY [facility] Last Admin: 02/17/18 08:20 Dose: 1 patch Olanzapine (Zyprexa Odt) 10 mg TL BID [facility] Last Admin: 02/17/18 21:06 Dose: 10 mg Oxymetazoline HCl (Afrin) 2 sprays ABE BID [facility] Stop: 02/18/18 16:40 Last Admin: 02/17/18 22:19 Dose: 2 spray Polyethylene Glycol (Miralax) 17 gm PO DAILY [facility] Last Admin: 02/17/18 08:18 Dose: 17 gm Prochlorperazine Edisylate (Compazine Inj) 10 mg IVP Q8H PRN PRN Reason: Nausea / Vomiting Promethazine HCl (Phenergan) 25 mg PO Q6H PRN PRN Reason: Nausea / Vomiting Last Admin: 02/16/18 09:08 Dose: 25 mg Saccharomyces Boulardii (Florastor) 500 mg PO BIDWM [facility] Last Admin: 02/17/18 18:17 Dose: 500 mg Senna (Senokot) 8.6 - 17.2 mg PO DAILY [facility] Sodium Chloride (Normal Saline Flush 0.9%) 10 ml IVP PRN PRN PRN Reason: NEEDED PER PROVIDER ORDERS Last Admin: 02/18/18 06:03 Dose: 10 ml Sodium Chloride (Normal Saline Flush 0.9%) 10 ml IVP 0100,0900,1700 [facility] Last Admin: 02/18/18 00:51 Dose: 10 ml Sodium Chloride ([place]) 2 sprays ABE Q4HR PRN PRN Reason: Nasal Congestion Last Admin: 02/15/18 18:37 Dose: 2 spr Sucralfate (Carafate) 1 gm PO 0700,1100,1600,2200 [facility] Last Admin: 02/18/18 06:03 Dose: 1 gm Temazepam (Restoril) 15 mg PO QPM PRN PRN Reason: Insomnia Trazodone HCl (Desyrel) 400 mg PO QPM [facility] Last Admin: 02/17/18 21:07 Dose: 400 mg Verapamil ER [Calan SA] 180 mg PO DAILY 03/25/16 OLANZapine [Olanzapine] 10 mg PO BID 06/20/16 Albuterol Sulf [Ventolin Hfa Inhaler] 2 puffs INH Q4H PRN 12/25/16 Divalproex ER [Depakote ER] 1,250 mg PO QPM 12/25/16 Divalproex ER [Depakote ER] 750 mg PO DAILY 12/25/16 Famotidine 20 mg PO DAILY 12/25/16 Lorazepam 0.5 mg PO DAILY 12/25/16 Trazodone HCl 400 mg PO QPM 12/25/16 ARIPiprazole [Aripiprazole] 10 mg PO DAILY 05/23/17 Bupropion HCl [Bupropion HCl Sr] 150 mg PO Q12H 05/23/17 chlorproMAZINE [Thorazine] 25 mg PO BID 05/23/17 Fluticasone/Salmeterol [Advair 250-50 Diskus] 1 puffs INH BID 02/15/18 Sucralfate [Sucralfate] 1 tab PO DAILY 02/15/18 Objective - Vital Signs/Intake & Output Reviewed Vital Signs: Yes Vital Signs: Vital Signs x48h Temp Pulse Pulse Resp BP Pulse Ox 02/17/18 12:06 36.7 C 84 20 108/59 L 95 02/17/18 11:12 76 20 02/17/18 07:40 74 21 02/17/18 07:37 37 C 79 18 144/83 H 98 Intake & Output: Intake & Output 02/14/18 02/15/18 02/16/18 02/17/18 23:59 23:59 23:59 23:59 Intake Total 1 0 440 Balance 1676 2089 440 - Objective General Appearance: positive: Alert, Moderate distress, Anxious Eyes Bilateral: positive: Normal inspection, PERRL Eyes: OU Conjunctivae pale ENT: positive: ENT inspection nml, Pharynx nml, Pharyngeal erythema, Dry mucous membranes Neck: positive: Nml inspection, Thyroid nml, No JVD, Trachea midline, Lymphadenopathy (R), Lymphadenopathy (L) Respiratory: positive: Chest non-tender, No respiratory distress, Wheezes (very minimal), Rhonchi Cardiovascular: positive: No gallop, Irregularly irregular, Systolic murmur, Decreased pulse(s) Peripheral Pulses: 1+ Dorsalis pedis (R), 1+ Dorsalis pedis (L), 2+ Radial (R), 2+ Radial (L) Abdomen: positive: Non-tender, Nml bowel sounds, Other (obese, soft) Back: positive: Nml inspection Skin: positive: No rash, Warm, Dry Extremities: positive: Non-tender, Full ROM, Pedal edema (dependent) Neurologic/Psychiatric: positive: Oriented x3, CN's nml (2-12), Motor nml, Sensation nml, Slurred/abnml speech, Depressed mood/affect, Other (baseline delay) Reflexes: Bicep (R): 3+, Bicep (L): 3+ - Lab Results Fish Bones: //18 05:37 //18 05:37 Other Labs: Lab Results x24hrs //18 Range/Units 05:13 B-Natriuretic Peptide 381 H (5-100) pg/mL - Diagnostic Imaging Diagnostic Imaging Results: positive: Final report reviewed ABX Reporting Has patient been on IV antibiotics over the past 48 hours?: No Assessment/Plan - Problem List (1) COPD exacerbation Impression: The patient is audibly wheezy from the door way, that has improved to bedside wheezing today. She continues on scheduled Xopenex, I.S, IV steroids that have been reduced further today, expectorants, nasal sprays, and morphine as needed. Oral Clindaymcin was added due to the patient's lack of improvement on day # 2. A 2-view chest ray was obtained upon admission and shows prominent interstitial opacities, indicating likely advanced disease. The patient admits to continued tobacco dependence. A prescription of Nicotine was sent to the pharmacy to ensure coverage. The patient will not commit to recommended pulmonary rehab when asked. Plan: Continue plan of care including frequent nursing, respiratory care and pulmonary rehab consultation upon discharge. (2) Schizoaffective disorder Impression: The patient is prescribed anti-seizure medications, Abilify and Wellbutrin for mental wellness. She appears stable mentally for the past few days, without darrius. She has had suicide attempts listed in her past medical history, but denies such thoughts when asked. Plan: Continue to monitor for changes in behavior and continue medications. (3) Seizure disorder Impression: The patient is prescribed Depakote and Lamictal at home for a known seizure history. This has been stable today. Plan: Continue home meds and monitor for evidence of seizures. (5) Cerumen impaction Impression: Debrox drops have been added x1 for this problem. The patient denies difficulty with hearing, but upon exam, she is found to have so much debris that the tympanic membrane is just barely visible. Since the Debrox, she states that her hearing is improved. I will add a ear flush for nursing care. Plan: Monitor for improvement. Qualifiers: Laterality: left Qualified Code(s): H61.22 - Impacted cerumen, left ear (6) Chronic sinusitis Impression: Upon exam the patient is noted to have fluid behind bilateral tympanic membranes which is an expected finding in patient with chronic COPD. Plan: Give Afrin spray x3 days, and Nasonex daily. She can have saline nasal mist PRN. Qualifiers: Sinusitis location: unspecified location Qualified Code(s): J32.9 - Chronic sinusitis, unspecified (7) Hypoxia Impression: The patient admits to chronic oxygen dependence, but states that she recently had a room mate who used her oxygen tubing for drug use, so she has not been able to use her oxygen. She will likely qualify for home oxygen, but we will sent a fresh set of tubing home for her as well. She was found to be hypoxic when presenting to the ED. Her breathing is slowly improving, but still demonstrates a cough with activity. Plan: Will order a walking de-sat study prior to discharge. (8) Tobacco dependence Impression: The patient continues to use cigarettes at home and claims that she thinks that her insurance does not cover nicotine patches. Social work and Case management both involved. 2 prescriptions were sent for both nicotine 14 and nicotine 7 for one week each dose to [facility]. We will plan to call before discharge to make sure there is no cost. She will be referred to pulmonary rehab. Plan: Continue patches here and encourage cessation.
[2018-02-17] MEDS: traZODone 50 MG TABLET PO SCH (21:07)
[2018-02-18] MEDS: SODIUM CHLORIDE FLUSH 0.9% 10 ML SYRINGE IVP SCH ×2 (00:51→08:33)
[2018-02-18] MEDS: HYDROcod/ACETAM 5/325 MG TABLET PO PRN (00:58)
[2018-02-18] MEDS: methylPREDNISolone SUCCINATE 125 MG/2 ML VIAL IVP SCH (05:58)
[2018-02-18] MEDS: CLINDAMYCIN 150 MG CAPSULE PO SCH (05:58)
[2018-02-18] MEDS: SODIUM CHLORIDE FLUSH 0.9% 10 ML SYRINGE IVP PRN (06:03)
[2018-02-18] MEDS: SUCRALFATE 1 GM/10 ML UDC PO SCH (06:03)
[2018-02-18] MEDS: LEVALBUTEROL 1.25 MG/3 ML NEB INH SCH (07:16)
[2018-02-18] MEDS: BUDESONIDE 0.5 MG/2 ML NEB INH SCH (07:16)
[2018-02-18] MEDS ORDERED: LACTULOSE 10 GM /15 ML UDC PO SCH (07:24)
[2018-02-18 07:56] VITALS: BP 144/75
[2018-02-18] MEDS: FAMOTIDINE 20 MG TABLET PO SCH (08:22)
[2018-02-18] MEDS: LORazepam 0.5 MG TABLET PO SCH (08:23)
[2018-02-18] MEDS: guaiFENesin 600 MG TABLET PO SCH (08:23)
[2018-02-18] MEDS: ARIPiprazole 5 MG TABLET PO SCH (08:23)
[2018-02-18] MEDS: chlorproMAZINE 25 MG TABLET PO SCH (08:25)
[2018-02-18] MEDS: OLANZapine ODT 5 MG TABLET TL SCH (08:25)
[2018-02-18] MEDS: POLYETHYLENE GLYCOL 3350 17 GM PACKET PO SCH (08:26)
[2018-02-18] MEDS: buPROPion SR 150 MG TABLET PO SCH (08:26)
[2018-02-18] MEDS: DIVALPROEX ER 250 MG TABLET PO SCH (08:26)
[2018-02-18] MEDS: NICOTINE 14 MG PATCH TOP SCH (08:27)
[2018-02-18] MEDS: SACCHAROMYCES BOULARDII 250 MG CAPSULE PO SCH (08:31)
[2018-02-18] MEDS: FLUTICASONE NASAL SPRAY NAS SCH (08:31)
[2018-02-18] MEDS: OXYMETAZOLINE NASAL SPRAY NAS SCH (08:33)
--- NOTE | 2018-02-18 08:54 | Discharge Plan ---
Discharge Plan Disposition: 01 Home, Self Care Condition: Good Prescriptions: Clindamycin HCl [Clindamycin 150MG CAP] 450 mg PO TID 10 Days #90 capsule Fluticasone [Flonase] 2 sprays ABE DAILY #5 bottle guaiFENesin [Mucinex] 600 mg PO BID #60 tablet L. Acidophilus/L.bulgaricus [Lactobacillus Tablet] 1 each PO BID #60 tablet Nicotine 14 mg Patch [Nicoderm] 1 each TOP Q24H #7 patch Nicotine 7 mg Patch [Nicoderm] 1 each TOP Q24H #7 patch Prednisone 10 mg PO DAILY 8 Days #26 [id number] Diet: Regular Activity Restrictions: No Restrictions Shower Restrictions: No Driving Restrictions: Yes Weight Bearing: Full Weight Instruction Topics: Fluticasone nasal spray, Clindamycin capsules, Nicotine skin patches, Lactobacillus Oral formulations, Guaifenesin oral ER tablets, Prednisone tablets Additional Instructions or Follow Up instructions: You were admitted for a COPD exacerbation. You were given IV steroids, IV fluids and expectorants. You were found to have fluid in your inner ears, and wax in the canal. You were given nasal sprays for the fluid and Debrox drops to help break up the wax. You should continue the steroid nasal spray since you have COPD and wear oxygen. On day #2 you were not improving as expected, so a oral antibiotic was added and should continue for at least 10 more days. Please take a probiotic with this medication as a preventative. A walking oxygen study has been ordered and this shows that you should wear oxygen with activity at 1-2L via nasal cannula. You said that you have oxygen at home, but just needed some tubing, so I put a fresh set in your bag. Smoking will not allow for a complete recovery from this episode, so 2 doses of nicotine patches have been sent to your pharmacy. I would like you to consider our pulmonary rehab because this will be very helpful in supporting your COPD. Please resume all of your medications, and take the prednisone taper for the next 8 days. Please see your PCP within one week. Follow-Up Care: [facility] - Pulmonary No Smoking: If you smoke, Please STOP! Call for help. Follow-up with: María Elena Ponce MD [Primary Care Provider] -
[2018-02-18] MEDS ORDERED: SENNA 8.6 MG TABLET PO SCH (09:00)
[2018-02-18] MEDS ORDERED: DOCUSATE SODIUM 250 MG CAPSULE PO SCH (09:00)
--- NOTE | 2018-02-18 09:01 | DISCHARGE SUMMARY ---
Discharge Summary Admit Date: 02/15/18 Discharge Date: 02/18/18 Discharging Provider: JARRED Quiles Primary Care Provider: María Elena Ponce Code Status: Attempt Resuscitation Condition at Discharge: Good Discharge Disposition: 01 Home, Self Care - DIAGNOSES Admission Diagnoses: Chronic obstructive pulmonary disease with (acute) exacerbation (J44.1) Schizoaffective disorder, unspecified (F25.9) Epilepsy, unspecified, not intractable, without status epilepticus (G40.909) Tachycardia, unspecified (R00.0) Discharge Diagnoses with Status of Each Condition: COPD exacerbation (J44.1) -resolved. Chronic obstructive pulmonary disease (COPD) (J44.9) -chronic, stable. Schizoaffective disorder (F25.9) -chronic, stable. Seizure disorder (G40.909) -chronic, stable. Cerumen impaction (H61.20) -chronic, stable. Chronic sinusitis (J32.9) -chronic, stable. Hypoxia (R09.02) -resolved. Tobacco dependence (F17.200) -chronic, encouraged cessation. - HPI History of Present Illness: Kami Toro is an obese 53-year old white female with a past medical history of tobacco dependence, COPD, schizoaffective disorder, prior suicide attempts, cognitive delay and seizure disorder. She presented to the ED after rapidly progressive shortness of breath, chest heaviness, and non-productive cough. When arriving in the ED, she was given countinuous nebulizer treatments, IV steroids, terbutaline, magnesium and still is suffering with profound shortness of breath and wheezing. She denies nausea, vomiting, falls, diarrhea or hemoptysis. She will be admitted to observation for further treatment of this exacerbation including evaluation of a possible pulmonary emboli. - HOSPITAL COURSE Hospital Course: The following diagnoses were prevalent during this hospital stay: (1) COPD exacerbation/chronic COPD The patient is audibly wheezy from the door way, that has improved to bedside wheezing today. She continues on scheduled Xopenex, I.S, IV steroids that have been tapered down and then prescribed for further oral tapering out patient, expectorants, nasal sprays, and morphine as needed. Oral Clindaymcin was added due to the patient's lack of improvement on day #2. A 2-view chest ray was obtained upon admission and shows prominent interstitial opacities, indicating likely advanced disease. The patient admits to continued tobacco dependence. A prescription of Nicotine was sent to the pharmacy to ensure coverage. The patient will not commit to recommended pulmonary rehab when asked, but was ordered upon discharge. A [id number] exam was completed and the patient was informed of her test results as follows: The patient was not found to be hypoxic at rest, with a room air oxygen saturation of 91%. However, with ambulation the oxygen saturation dropped to 88% on room air. With exertion on 1L per nasal cannula her oxygen saturation reading improved to 93%. I am ordering home oxygen, to be used with activity at 1-2L per nasal cannula. (2) Schizoaffective disorder The patient is prescribed anti-seizure medications, Abilify and Wellbutrin for mental wellness. She appears stable mentally for the past few days, without darrius. She has had suicide attempts listed in her past medical history, but denies such thoughts when asked. (3) Seizure disorder The patient is prescribed Depakote and Lamictal at home for a known seizure history. This has been stable for this admission. (5) Cerumen impaction Debrox drops have been added x1 for this problem. The patient denies difficulty with hearing, but upon exam, she is found to have so much debris that the tympanic membrane is just barely visible. Since the Debrox, she states that her hearing is improved. The patient was instructed to allow the water to go into her ear during showers for general maintenance. (6) Chronic sinusitis Upon exam the patient is noted to have fluid behind bilateral tympanic membranes which is an expected finding in patient with chronic COPD. The patient should continue Afrin spray x3 days, and Nasonex daily. She can have saline nasal mist PRN. (7) Hypoxia The patient admits to chronic oxygen dependence, but states that she recently had a room mate who used her oxygen tubing for drug use, so she has not been able to use her oxygen. She will likely qualify for home oxygen, but we will sent a fresh set of tubing home for her as well. She was found to be hypoxic when presenting to the ED. Her breathing is slowly improving, but still demonstrates a cough with activity. The patient had an elevated d-dimer upon admission, so a VQ scan was performed due to her contrast allergy. This was negative for a pulmonary emboli. (8) Tobacco dependence The patient continues to use cigarettes at home and claims that she thinks that her insurance does not cover nicotine patches. Social work and Case management both involved. 2 prescriptions were sent for both nicotine 14 and nicotine 7 for one week each dose to [facility] [place][note 2]. She has been referred to pulmonary rehab. Disposition: The patient was very anxious to be on her way on the day of discharge and was in stable condition with a resolution of uncontrolled coughing with ambulation and audible wheezing. She was independent in her ambulation and was not in pain. She will return to her prison with supplemental oxygen as per her walking desaturation testing that was performed by respiratory therapy. - ALLERGIES Allergies/Adverse Reactions: Allergies Allergy/AdvReac Type Severity Reaction Status Date / Time azithromycin Allergy Severe Hives Verified 02/14/18 19:52 haloperidol Allergy Severe Anaphylaxis Verified 02/14/18 19:52 Penicillins Allergy Severe Anaphylaxis Verified 02/14/18 19:52 amoxicillin [Amoxicillin] Allergy Intermediate Rash Verified 02/14/18 19:52 grapefruit Allergy Intermediate Rash Verified 02/14/18 19:52 iodine Allergy Intermediate Rash Verified 02/14/18 19:52 Sulfa (Sulfonamide Allergy Intermediate Rash Verified 02/14/18 19:52 Antibiotics) haloperidol lactate * AdvReac Rash Verified 02/14/18 19:52 [From Haldol] - MEDICATIONS Home Medications: Ambulatory Orders Medication Instructions Recorded Confirmed Verapamil ER [Calan SA] 180 mg PO DAILY 03/25/16 02/15/18 OLANZapine [Olanzapine] 10 mg PO BID 06/20/16 02/15/18 Albuterol Sulf [Ventolin Hfa 2 puffs INH Q4H PRN 12/25/16 02/15/18 Inhaler] Divalproex ER [Depakote ER] 1,250 mg PO QPM 12/25/16 02/15/18 Divalproex ER [Depakote ER] 750 mg PO DAILY 12/25/16 02/15/18 Famotidine 20 mg PO DAILY 12/25/16 02/15/18 Lorazepam 0.5 mg PO DAILY 12/25/16 02/15/18 Trazodone HCl 400 mg PO QPM 12/25/16 02/15/18 ARIPiprazole [Aripiprazole] 10 mg PO DAILY 05/23/17 02/15/18 Bupropion HCl [Bupropion HCl Sr] 150 mg PO Q12H 05/23/17 02/15/18 chlorproMAZINE [Thorazine] 25 mg PO BID 05/23/17 02/15/18 Fluticasone/Salmeterol [Advair 1 puffs INH BID 02/15/18 02/15/18 250-50 Diskus] Sucralfate 1 tab PO DAILY 02/15/18 02/15/18 Nicotine 14 mg Patch [Nicoderm] 1 each TOP Q24H #7 patch 02/17/18 Nicotine 7 mg Patch [Nicoderm] 1 each TOP Q24H #7 patch 02/17/18 Clindamycin HCl [Clindamycin 150MG 450 mg PO TID 10 Days #90 capsule 02/18/18 CAP] Fluticasone [Flonase] 2 sprays ABE DAILY #5 bottle 02/18/18 L. Acidophilus/L.bulgaricus 1 each PO BID #60 tablet 02/18/18 [Lactobacillus Tablet] Prednisone 10 mg PO DAILY 8 Days #26 tab.ds.pk 02/18/18 guaiFENesin [Mucinex] 600 mg PO BID #60 tablet 02/18/18 - PHYSICAL EXAM AT DISCHARGE General Appearance: positive: No acute distress, Alert Eyes Bilateral: positive: Normal inspection, PERRL ENT: positive: ENT inspection nml, Pharynx nml, No signs of dehydration Neck: positive: Nml inspection, Thyroid nml, No JVD, Trachea midline, Lymphadenopathy (R), Lymphadenopathy (L), Stiff neck Respiratory: positive: Chest non-tender, No respiratory distress, Other ( diminished, without wheezing upon exam.) Cardiovascular: positive: Regular rate & rhythm, No gallop, Systolic murmur Peripheral Pulses: positive: 2+ Abdomen: positive: Non-tender, Nml bowel sounds, Other (obese, soft) Back: positive: Nml inspection Skin: positive: No rash, Warm, Dry Extremities: positive: Non-tender, Full ROM, Pedal edema (chronic, BLE dependent.), Joint swelling Neurologic/Psychiatric: positive: Oriented x3, CN's nml (2-12), Motor nml, Sensation nml, Weakness, Sensory loss, Slurred/abnml speech (related to prior psych history.), Depressed mood/affect Reflexes: Bicep (R): 3+, Bicep (L): 3+, Ankle (R): 3+, Ankle (L): 3+ - LABS Result Diagrams: 02/16/18 05:37 02/16/18 05:37 - DIAGNOSTIC IMAGING Diagnostic Imaging Results: Final report reviewed Diagnostic Imaging Results Comments: EXAM: CHEST RADIOGRAPHY EXAM DATE: 02/14/2018 09:07 PM. CLINICAL HISTORY: Chest pain. COMPARISON: 09/22/2017 chest x-ray. TECHNIQUE: 2 views. FINDINGS: Lungs/Pleura: Prominent interstitial opacities with bronchial thickening. There is no lobar consolidation. No pleural effusion or pneumothorax. Mediastinum: Heart and mediastinal contours are unremarkable. Other: None. IMPRESSION: Prominent interstitial opacities as above likely secondary to chronic interstitial disease. No acute findings. EXAM: VENTILATION/PERFUSION SCAN (V/Q SCAN) EXAM DATE: 02/15/2018 03:06 PM. CLINICAL HISTORY: Hypoxia, elevated d-dimer, chest pain. COMPARISON: Chest radiograph 02/14/2018 2050 hrs.. TECHNIQUE: Patient was administered 37.6 mCi of technetium 99m DTPA aerosol by inhalation and 8 standard ventilation images of the lungs were obtained. Next, the patient was injected with 4.8 mCi of technetium 99m MAA intravenously and 8 standard perfusion images of the lungs were obtained. FINDINGS: Perfusion images demonstrate mildly inhomogeneous perfusion to the lungs bilaterally without convincing segmental deficit. Ventilatory images demonstrate overall substantially worse but otherwise corresponding radiotracer distribution without convincing mismatch. There is moderate central airway deposition suggesting obstructive pulmonary physiology. Comparison chest radiographic demonstrates no significant focal pulmonary opacities. IMPRESSION: 1. No ventilation/perfusion mismatches to indicate pulmonary emboli. Low probability for acute pulmonary embolism. ECHOCARDIOGRAM- Final 02/15/18: 1. The LV size is normal. LV wall thickness is normal. Overall LV systolic function is normal with an EF of 65-70%. 2. The RV is normal in size and function. 3. There is no pericardial effusion noted. 4. No significant valvular abnormality. - FOLLOW UP Follow Up: Disposition: 01 Home, Self Care Condition: Good Prescriptions: Clindamycin HCl [Clindamycin 150MG CAP] 450 mg PO TID 10 Days #90 capsule Fluticasone [Flonase] 2 sprays ABE DAILY #5 bottle guaiFENesin [Mucinex] 600 mg PO BID #60 tablet L. Acidophilus/L.bulgaricus [Lactobacillus Tablet] 1 each PO BID #60 tablet Nicotine 14 mg Patch [Nicoderm] 1 each TOP Q24H #7 patch Nicotine 7 mg Patch [Nicoderm] 1 each TOP Q24H #7 patch Prednisone 10 mg PO DAILY 8 Days #26 tab.ds.pk Diet: Regular Activity Restrictions: No Restrictions Shower Restrictions: No Driving Restrictions: Yes Weight Bearing: Full Weight Instruction Topics: Fluticasone nasal spray, Clindamycin capsules, Nicotine skin patches, Lactobacillus Oral formulations, Guaifenesin oral ER tablets, Prednisone tablets Additional Instructions or Follow Up instructions: You were admitted for a COPD exacerbation. You were given IV steroids, IV fluids and expectorants. You were found to have fluid in your inner ears, and wax in the canal. You were given nasal sprays for the fluid and Debrox drops to help break up the wax. You should continue the steroid nasal spray since you have COPD and wear oxygen. On day #2 you were not improving as expected, so a oral antibiotic was added and should continue for at least 10 more days. Please take a probiotic with this medication as a preventative. A walking oxygen study has been ordered and this shows that you should wear oxygen with activity at 1-2L via nasal cannula. You said that you have oxygen at home, but just needed some tubing, so I put a fresh set in your bag. Smoking will not allow for a complete recovery from this episode, so 2 doses of nicotine patches have been sent to your pharmacy. I would like you to consider our pulmonary rehab because this will be very helpful in supporting your COPD. Please resume all of your medications, and take the prednisone taper for the next 8 days. Please see your PCP within one week. - TIME SPENT Time Spent in Discharge (Minutes): 60
== END 2018-02-18 11:15 | disposition home or self-care (01) | DRG 192 ==
LOC: EDUNIT# → ED 19:35 → MS2 23:54 → OBSVTOIN 02-15 11:06
PROVIDERS: ADMIT Internal Medicine; ATTEND Nurse Practitioner
DX: J44.1 Chronic obstructive pulmonary disease with (acute) exacerbation (principal); F17.200 Nicotine dependence, unspecified, uncomplicated; K21.9 Gastro-esophageal reflux disease without esophagitis; E11.9 Type 2 diabetes mellitus without complications; K44.9 Diaphragmatic hernia without obstruction or gangrene; F20.9 Schizophrenia, unspecified; F32.9 Major depressive disorder, single episode, unspecified; F43.10 Post-traumatic stress disorder, unspecified; F17.210 Nicotine dependence, cigarettes, uncomplicated; F25.9 Schizoaffective disorder, unspecified; G40.909 Epilepsy, unspecified, not intractable, without status epilepticus; J32.9 Chronic sinusitis, unspecified; H61.20 Impacted cerumen, unspecified ear; R00.0 Tachycardia, unspecified; T48.6X5A Adverse effect of antiasthmatics, initial encounter; R09.02 Hypoxemia; G31.84 Mild cognitive impairment of uncertain or unknown etiology; Z79.2 Long term (current) use of antibiotics; Z79.891 Long term (current) use of opiate analgesic; Z79.51 Long term (current) use of inhaled steroids; Z79.899 Other long term (current) drug therapy; Z87.01 Personal history of pneumonia (recurrent); Z91.5 Personal history of self-harm; Z99.81 Dependence on supplemental oxygen
CPT/HCPCS: 36415; 71046; 78582; 80048; 80053; 81001; 83036; 83690; 83735; 83880; 84443; 84484; 85025; 85379; 87086; 93306; 94640; 94761; 96361; 96365; 96372; 96375; 96376; 99283; 99284

== ENCOUNTER 2018-03-01 21:48 | Outpatient (CLI) | payer MEDICARE, MEDICAID | END 2018-03-01 21:49 | disposition critical access hospital (66) | LOC: EMS 21:48 | PROVIDERS: ATTEND Surgery | DX: R45.851 Suicidal ideations (principal) | CPT/HCPCS: A0425; A0429 ==

== ENCOUNTER 2018-03-01 22:07 | Emergency (ER) | payer MEDICARE, MEDICAID ==
--- NOTE | 2018-03-01 22:13 | ED Physician Documentation ---
PD HPI CHEST PAIN - Stated complaint Stated Complaint: CHEST PAIN/SOA - History obtained from History obtained from: Patient, EMS - History of Present Illness Timing - onset: How many days ago (1-2 days of feeling increased dyspnea and wheezing. This has her anxious and she is feeling suicidal due to it. She is concerned she may not control impulses to hurt herself. Called EMS for help.) Timing - onset during: Rest, Light activity Timing - duration: Days (1-2) Timing - details: Gradual onset, Waxing and waning Quality: Tightness Location: Substernal Radiation: No: Back, Abdominal Improved by: No: Rest Worsened by: Exertion Associated symptoms: Shortness of air, Cough, Other (wheezing). No: Nausea, Vomiting, Feeling faint / dizzy Similar symptoms before: Diagnosis (both history of COPD with wheezing and recent hospitalization. Has had history of depression as well, with suicidal ideation and some attempts in the past.) Recently seen: Admitted (last hospitalized 02/15/18 for COPD and chest pain. Had ECHO showing good EF. negative test for PE. No signs of CHF.) Review of Systems Constitutional: denies: Fever, Chills, Myalgias Nose: denies: Rhinorrhea / runny nose, Congestion Throat: denies: Sore throat Respiratory: reports: Dyspnea, Cough (nonproductive), Wheezing GI: denies: Abdominal Pain, Nausea, Vomiting, Diarrhea : denies: Dysuria, Frequency Skin: denies: Rash, Lesions Neurologic: reports: Generalized weakness. denies: Focal weakness, Numbness, Near syncope Psychiatric: reports: Depressed, Suicidal, Anxiety. denies: Homicidal, Delusions, Insomnia Endocrine: denies: Weight loss Immunocompromised: denies: Immunocompromised PD PAST MEDICAL HISTORY - Past Medical History Cardiovascular: Angina, Other Respiratory: COPD, Pneumonia Endocrine/Autoimmune: Type 2 diabetes GI: GERD, Hiatal hernia [employer]: None : None HEENT: None Psych: Depression, Schizophrenia, Post traumatic stress disorder Musculoskeletal: None Derm: None - Past Surgical History Past Surgical History: Yes General: Bowel surgery Ortho: Other /[employer]: 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 HEENT: Cataracts - Present Medications Home Medications: Ambulatory Orders Medication Instructions Recorded Confirmed Verapamil ER [Calan SA] 180 mg PO DAILY 03/25/16 02/15/18 OLANZapine [Olanzapine] 10 mg PO BID 06/20/16 02/15/18 Albuterol Sulf [Ventolin Hfa 2 puffs INH Q4H PRN 12/25/16 02/15/18 Inhaler] Divalproex ER [Depakote ER] 1,250 mg PO QPM 12/25/16 02/15/18 Divalproex ER [Depakote ER] 750 mg PO DAILY 12/25/16 02/15/18 Famotidine 20 mg PO DAILY 12/25/16 02/15/18 Lorazepam 0.5 mg PO DAILY 12/25/16 02/15/18 Trazodone HCl 400 mg PO QPM 12/25/16 02/15/18 ARIPiprazole [Aripiprazole] 10 mg PO DAILY 05/23/17 02/15/18 Bupropion HCl [Bupropion HCl Sr] 150 mg PO Q12H 05/23/17 02/15/18 chlorproMAZINE [Thorazine] 25 mg PO BID 05/23/17 02/15/18 Fluticasone/Salmeterol [Advair 1 puffs INH BID 02/15/18 02/15/18 250-50 Diskus] Sucralfate 1 tab PO DAILY 02/15/18 02/15/18 Nicotine 14 mg Patch [Nicoderm] 1 each TOP Q24H #7 patch 02/17/18 Nicotine 7 mg Patch [Nicoderm] 1 each TOP Q24H #7 patch 02/17/18 Clindamycin HCl [Clindamycin 150MG 450 mg PO TID 10 Days #90 capsule 02/18/18 CAP] Fluticasone [Flonase] 2 sprays ABE DAILY #5 bottle 02/18/18 L. Acidophilus/L.bulgaricus 1 each PO BID #60 tablet 02/18/18 [Lactobacillus Tablet] Prednisone 10 mg PO DAILY 8 Days #26 tab.ds.pk 02/18/18 guaiFENesin [Mucinex] 600 mg PO BID #60 tablet 02/18/18 - Allergies Allergies/Adverse Reactions: Allergies Allergy/AdvReac Type Severity Reaction Status Date / Time azithromycin Allergy Severe Hives Verified 02/14/18 19:52 haloperidol Allergy Severe Anaphylaxis Verified 02/14/18 19:52 Penicillins Allergy Severe Anaphylaxis Verified 02/14/18 19:52 amoxicillin [Amoxicillin] Allergy Intermediate Rash Verified 02/14/18 19:52 grapefruit Allergy Intermediate Rash Verified 02/14/18 19:52 iodine Allergy Intermediate Rash Verified 02/14/18 19:52 Sulfa (Sulfonamide Allergy Intermediate Rash Verified 02/14/18 19:52 Antibiotics) haloperidol lactate * AdvReac Rash Verified 02/14/18 19:52 [From Haldol] - Social History Does the pt smoke?: Yes Smoking Status: Current every day smoker Does the pt drink ETOH?: No Does the pt have substance abuse?: No - Immunizations Immunizations are current?: No Immunizations: TDAP >10years/unknown - POLST Patient has POLST: No PD ED PE NORMAL - Vitals Vital signs reviewed: Yes - General General: Alert and oriented X 3, Well developed/nourished - HEENT HEENT: Ears normal, Pharynx benign - Neck Neck: Supple, no meningeal sign, No adenopathy, No JVD - Cardiac Cardiac: RRR, No murmur - Respiratory Respiratory: No respiratory distress. No: Clear bilaterally (diffuse wheezing without coarse sounds and normal respiratory effort. ) - Abdomen Abdomen: Soft, Non tender - Derm Derm: Normal color, Warm and dry - Neuro Neuro: Alert and oriented X 3, No motor deficit, Normal speech - Psych Psych: No: Normal affect (somewhat anxious; expresses concern for impulse control. ) Results - Vitals Vitals: Vital Signs - 24 hr 03/01/18 03/01/18 03/01/18 22:11 22:45 23:10 Heart Rate 86 78 80 Respiratory 16 18 18 Rate Blood Pressure 130/99 H 131/67 H O2 Saturation 99 96 03/02/18 03/02/18 03/02/18 00:10 02:00 04:00 Heart Rate 86 88 86 Respiratory 18 18 18 Rate Blood Pressure 130/68 130/70 132/72 H O2 Saturation 98 98 96 03/02/18 06:00 Heart Rate 84 Respiratory 18 Rate Blood Pressure 128/72 O2 Saturation 96 Oxygen O2 Source [] Room air O2 Source [] Room air O2 Source Room air - Labs Labs: Laboratory Tests 03/01/18 03/01/18 03/01/18 22:43 22:43 22:43 WBC 17.2 H RBC 4.29 Hgb 13.3 Hct 40.3 MCV 93.9 MCH 30.9 MCHC 32.9 RDW 15.2 H Plt Count 265 MPV 9.1 Neut # (Auto) 9.3 H Lymph # (Auto) 5.3 H [place] # (Auto) 2.3 H Eos # (Auto) 0.2 Baso # (Auto) 0.1 Absolute Nucleated RBC 0.01 Nucleated RBC % 0.1 Sodium 138 Potassium 3.9 Chloride 105 Carbon Dioxide 27 Anion Gap 6.0 BUN 16 Creatinine 0.8 Estimated GFR (MDRD) 75 L Glucose 116 H Calcium 9.2 Total Bilirubin 0.4 AST 17 ALT 21 Alkaline Phosphatase 48 Troponin I < 0.04 B-Natriuretic Peptide Total Protein 6.7 Albumin 3.3 Globulin 3.4 Albumin/Globulin Ratio 1.0 Lipase 17 L Last Dose Date Last Dose Time Salicylates < 6.0 Acetaminophen < 10 L Valproic Acid Ethyl Alcohol < 5.0 03/01/18 03/01/18 22:43 22:43 WBC RBC Hgb Hct MCV MCH MCHC RDW Plt Count MPV Neut # (Auto) Lymph # (Auto) [place] # (Auto) Eos # (Auto) Baso # (Auto) Absolute Nucleated RBC Nucleated RBC % Sodium Potassium Chloride Carbon Dioxide Anion Gap BUN Creatinine Estimated GFR (MDRD) Glucose Calcium Total Bilirubin AST ALT Alkaline Phosphatase Troponin I B-Natriuretic Peptide 37 Total Protein Albumin Globulin Albumin/Globulin Ratio Lipase Last Dose Date UNK Last Dose Time UNK Salicylates Acetaminophen Valproic Acid 74.0 Ethyl Alcohol - Rads (name of study) chest Radiology: Prelim report reviewed, EMP read contemporaneously (some chronic changes. No infiltrates, PTX, nor effusion. ) PD MEDICAL DECISION MAKING - ED course Complexity details: reviewed results, re-evaluated patient (given neb treatment with decreased wheezing, but still sounds wheezy. She is comfortable breathing though. She is still feeling anxious and concerned about impulse control at home and she feels she is not safe to go home by herself. Will keep her until AM to talk with SW, to assess if needs Respite or hospitalization. ), d/w patient, d/w family - Sepsis Event Vital Signs: Vital Signs - 24 hr 03/01/18 03/01/18 03/01/18 22:11 22:45 23:10 Heart Rate 86 78 80 Respiratory 16 18 18 Rate Blood Pressure 130/99 H 131/67 H O2 Saturation 99 96 03/02/18 03/02/18 03/02/18 00:10 02:00 04:00 Heart Rate 86 88 86 Respiratory 18 18 18 Rate Blood Pressure 130/68 130/70 132/72 H O2 Saturation 98 98 96 03/02/18 06:00 Heart Rate 84 Respiratory 18 Rate Blood Pressure 128/72 O2 Saturation 96 Oxygen O2 Source [] Room air O2 Source [] Room air O2 Source Room air Departure - Departure Clinical Impression: Acute exacerbation of COPD with asthma, Suicidal ideation Condition: Stable Record reviewed to determine appropriate education?: Yes
[2018-03-01] MEDS ORDERED: IPRATROPIUM/ALBUTEROL 3 ML NEB INH STA (22:30)
[2018-03-01] MEDS ORDERED: DEXAMETHASONE 10 MG/ML VIAL PO STA (22:30)
[2018-03-01 22:48] LABS: BASOPHILS # (AUTO) 0.1 10^3/uL (0.0-0.1); BASOPHILS % (AUTO) 0.8 %; EOSINOPHILS # (AUTO) 0.2 10^3/uL (0.0-0.7); HGB - HEMOGLOBIN 13.3 g/dL (12.0-16.0); LYMPHOCYTES # (AUTO) 5.3 10^3/uL (1.5-3.5); LYMPHOCYTES % (AUTO) 30.9 %; MEAN CORPUSCULAR HEMOGLOBIN 30.9 pg (27.0-31.0); MEAN CORPUSCULAR HGB CONC 32.9 g/dL (32.0-36.0); MEAN CORPUSCULAR VOLUME 93.9 fL (81.0-99.0); MEAN PLATELET VOLUME 9.1 fL (7.9-10.8); MONOCYTES # (AUTO) 2.3 10^3/uL (0.0-1.0); MONOCYTES % (AUTO) 13.2 %; NEUTROPHILS # (AUTO) 9.3 10^3/uL (1.5-6.6); NEUTROPHILS % (AUTO) 54.1 %; PLT - PLATELET COUNT 265 10^3/uL (130-450); RED BLOOD COUNT 4.29 10^6/uL (4.20-5.40); RED CELL DISTRIBUTION WIDTH 15.2 % (12.0-15.0); WHITE BLOOD COUNT 17.2 x10^3/uL (4.8-10.8)
[2018-03-01 23:03] LABS: ALBUMIN 3.3 g/dL (3.2-5.5); ALKALINE PHOSPHATASE 48 IU/L (42-121); ALT ALANINE AMINOTRANSFERASE 21 IU/L (10-60); AST ASPARTATE AMINOTRANSFERASE 17 IU/L (10-42); BILIRUBIN,TOTAL 0.4 mg/dL (0.2-1.0); BUN - BLOOD UREA NITROGEN 16 mg/dL (6-20); CALCIUM 9.2 mg/dL (8.5-10.3); CARBON DIOXIDE - CO2 27 mmol/L (21-32); CHLORIDE 105 mmol/L (101-111); CREATININE 0.8 mg/dL (0.4-1.0); GFR - MDRD 75 (>89); GLUCOSE 116 mg/dL (70-100); LIPASE 17 U/L (22-51); SALICYLATE < 6.0 mg/dL; SODIUM 138 mmol/L (135-145); TOTAL PROTEIN 6.7 g/dL (6.7-8.2)
[2018-03-01 23:06] LABS: ACETAMINOPHEN < 10 ug/mL (10-30)
--- NOTE | 2018-03-01 23:11 | XRAY Report ---
Procedure Date: 03/01/2018 Accession Number: [id number] / [id number] Procedure: XR - Chest 2 View X-Ray CPT Code: 94194 FULL RESULT: EXAM: CHEST RADIOGRAPHY EXAM DATE: 03/01/2018 10:58 PM. CLINICAL HISTORY: Dyspnea and wheezing; cough. COMPARISON: CHEST 2 VIEW 02/14/2018. TECHNIQUE: 2 views. FINDINGS: Lungs/Pleura: Stable interstitial prominence. No new consolidation, effusion, or pneumothorax. Mediastinum: Heart and mediastinal contours are unremarkable. Other: None. IMPRESSION: Stable interstitial prominence. No significant interval change. RADIA
[2018-03-01] MEDS ORDERED: LORazepam 0.5 MG TABLET PO STA (23:37)
[2018-03-02] MEDS ORDERED: IPRATROPIUM/ALBUTEROL 3 ML NEB INH STA (06:36)
[2018-03-02 07:18] LABS: MUDS CUTOFF CONCENTRATIONS CUTOFF CONC BELOW:
[2018-03-02 07:22] LABS: BILIRUBIN,URINE NEGATIVE (NEGATIVE); GLUCOSE, URINE (UA) NEGATIVE (NEGATIVE); KETONES,URINE (UA) NEGATIVE (NEGATIVE); LEUKOCYTE ESTERASE, URINE NEGATIVE (NEGATIVE); NITRITE,URINE NEGATIVE (NEGATIVE); OCCULT BLOOD,URINE NEGATIVE (NEGATIVE); PROTEIN,URINE NEGATIVE (NEGATIVE); UROBILINOGEN,URINE 0.2 (NORMAL) E.U./dL (NORMAL)
[2018-03-02 07:24] LABS: CLARITY,URINE CLEAR (CLEAR)
--- NOTE | 2018-03-02 07:31 | ED Physician Documentation ---
History of Present Illness - Stated complaint Stated Complaint: CHEST PAIN/SOA - Chief complaint Chief Complaint: [facility] PD PAST MEDICAL HISTORY - Past Medical History Cardiovascular: Angina, Other Respiratory: COPD, Pneumonia Endocrine/Autoimmune: Type 2 diabetes GI: GERD, Hiatal hernia PULP MIXER: None : None HEENT: None Psych: Depression, Schizophrenia, Post traumatic stress disorder Musculoskeletal: None Derm: None - Past Surgical History Past Surgical History: Yes General: Bowel surgery Ortho: Other /PULP MIXER: 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 HEENT: Cataracts - Present Medications Home Medications: Ambulatory Orders Medication Instructions Recorded Confirmed Verapamil ER [Calan SA] 180 mg PO DAILY 03/25/16 02/15/18 OLANZapine [Olanzapine] 10 mg PO BID 06/20/16 02/15/18 Albuterol Sulf [Ventolin Hfa 2 puffs INH Q4H PRN 12/25/16 02/15/18 Inhaler] Divalproex ER [Depakote ER] 1,250 mg PO QPM 12/25/16 02/15/18 Divalproex ER [Depakote ER] 750 mg PO DAILY 12/25/16 02/15/18 Famotidine 20 mg PO DAILY 12/25/16 02/15/18 Lorazepam 0.5 mg PO DAILY 12/25/16 02/15/18 Trazodone HCl 400 mg PO QPM 12/25/16 02/15/18 ARIPiprazole [Aripiprazole] 10 mg PO DAILY 05/23/17 02/15/18 Bupropion HCl [Bupropion HCl Sr] 150 mg PO Q12H 05/23/17 02/15/18 chlorproMAZINE [Thorazine] 25 mg PO BID 05/23/17 02/15/18 Fluticasone/Salmeterol [Advair 1 puffs INH BID 02/15/18 02/15/18 250-50 Diskus] Sucralfate 1 tab PO DAILY 02/15/18 02/15/18 Nicotine 14 mg Patch [Nicoderm] 1 each TOP Q24H #7 patch 02/17/18 Nicotine 7 mg Patch [Nicoderm] 1 each TOP Q24H #7 patch 02/17/18 Clindamycin HCl [Clindamycin 150MG 450 mg PO TID 10 Days #90 capsule 02/18/18 CAP] Fluticasone [Flonase] 2 sprays ABE DAILY #5 bottle 02/18/18 L. Acidophilus/L.bulgaricus 1 each PO BID #60 tablet 02/18/18 [Lactobacillus Tablet] Prednisone 10 mg PO DAILY 8 Days #26 tab.ds.pk 02/18/18 guaiFENesin [Mucinex] 600 mg PO BID #60 tablet 02/18/18 predniSONE [Deltasone] 20 mg PO [id number] #[id number] tab 03/02/18 - Allergies Allergies/Adverse Reactions: Allergies Allergy/AdvReac Type Severity Reaction Status Date / Time azithromycin Allergy Severe Hives Verified 02/14/18 19:52 haloperidol Allergy Severe Anaphylaxis Verified 02/14/18 19:52 Penicillins Allergy Severe Anaphylaxis Verified 02/14/18 19:52 amoxicillin [Amoxicillin] Allergy Intermediate Rash Verified 02/14/18 19:52 grapefruit Allergy Intermediate Rash Verified 02/14/18 19:52 iodine Allergy Intermediate Rash Verified 02/14/18 19:52 Sulfa (Sulfonamide Allergy Intermediate Rash Verified 02/14/18 19:52 Antibiotics) haloperidol lactate * AdvReac Rash Verified 02/14/18 19:52 [From Haldol] - Social History Does the pt smoke?: Yes Smoking Status: Current every day smoker Does the pt drink ETOH?: No Does the pt have substance abuse?: No - Immunizations Immunizations are current?: No Immunizations: TDAP >10years/unknown - POLST Patient has POLST: No Results - Vitals Vitals: Vital Signs - 24 hr 03/01/18 03/01/18 03/01/18 22:11 22:45 23:10 Temperature Heart Rate 86 78 80 Respiratory 16 18 18 Rate Blood Pressure 130/99 H 131/67 H O2 Saturation 99 96 03/02/18 03/02/18 03/02/18 00:10 02:00 04:00 Temperature Heart Rate 86 88 86 Respiratory 18 18 18 Rate Blood Pressure 130/68 130/70 132/72 H O2 Saturation 98 98 96 03/02/18 03/02/18 03/02/18 06:00 07:12 07:28 Temperature 36.7 C Heart Rate 84 108 H 106 H Respiratory 18 16 16 Rate Blood Pressure 128/72 130/73 O2 Saturation 96 94 03/02/18 14:41 Temperature 36.9 C Heart Rate 103 H Respiratory 16 Rate Blood Pressure 141/69 H O2 Saturation 94 Oxygen O2 Source [] Room air O2 Source [] Room air O2 Source Room air - EKG (time done) 1627 Rate: Rate (enter#) (98) Intervals: No: Prolonged QT, RBBB (RSR V1V2 but QRS WNL) Ischemia: Non specific changes - Labs Labs: Laboratory Tests 03/01/18 03/01/18 03/01/18 07:16 22:43 22:43 WBC 17.2 H RBC 4.29 Hgb 13.3 Hct 40.3 MCV 93.9 MCH 30.9 MCHC 32.9 RDW 15.2 H Plt Count 265 MPV 9.1 Neut # (Auto) 9.3 H Lymph # (Auto) 5.3 H [place] # (Auto) 2.3 H Eos # (Auto) 0.2 Baso # (Auto) 0.1 Absolute Nucleated RBC 0.01 Nucleated RBC % 0.1 Sodium 138 Potassium 3.9 Chloride 105 Carbon Dioxide 27 Anion Gap 6.0 BUN 16 Creatinine 0.8 Estimated GFR (MDRD) 75 L Glucose 116 H Calcium 9.2 Total Bilirubin 0.4 AST 17 ALT 21 Alkaline Phosphatase 48 Troponin I B-Natriuretic Peptide Total Protein 6.7 Albumin 3.3 Globulin 3.4 Albumin/Globulin Ratio 1.0 Lipase 17 L Urine Color YELLOW Urine Clarity CLEAR Urine pH 6.0 Ur Specific Rule 1.015 Urine Protein NEGATIVE Urine Glucose (UA) NEGATIVE Urine Ketones NEGATIVE Urine Occult Blood NEGATIVE Urine Nitrite NEGATIVE Urine Bilirubin NEGATIVE Urine Urobilinogen 0.2 (NORMAL) Ur Leukocyte Esterase NEGATIVE Ur Microscopic Review NOT INDICATED Urine Culture Comments NOT INDICATED Last Dose Date Last Dose Time Salicylates < 6.0 Urine Opiates Screen NEGATIVE Ur Oxycodone Screen NEGATIVE Urine Methadone Screen NEGATIVE Ur Propoxyphene Screen NEGATIVE Acetaminophen < 10 L Ur Barbiturates Screen NEGATIVE Valproic Acid Ur Tricyclics Screen NEGATIVE Ur Phencyclidine Scrn NEGATIVE Ur Amphetamine Screen NEGATIVE U Methamphetamines Scrn NEGATIVE U Benzodiazepines Scrn POSITIVE H Urine Cocaine Screen NEGATIVE U Cannabinoids Screen NEGATIVE Ethyl Alcohol < 5.0 03/01/18 03/01/18 03/01/18 22:43 22:43 22:43 WBC RBC Hgb Hct MCV MCH MCHC RDW Plt Count MPV Neut # (Auto) Lymph # (Auto) [place] # (Auto) Eos # (Auto) Baso # (Auto) Absolute Nucleated RBC Nucleated RBC % Sodium Potassium Chloride Carbon Dioxide Anion Gap BUN Creatinine Estimated GFR (MDRD) Glucose Calcium Total Bilirubin AST ALT Alkaline Phosphatase Troponin I < 0.04 B-Natriuretic Peptide 37 Total Protein Albumin Globulin Albumin/Globulin Ratio Lipase Urine Color Urine Clarity Urine pH Ur Specific Rule Urine Protein Urine Glucose (UA) Urine Ketones Urine Occult Blood Urine Nitrite Urine Bilirubin Urine Urobilinogen Ur Leukocyte Esterase Ur Microscopic Review Urine Culture Comments Last Dose Date UNK Last Dose Time UNK Salicylates Urine Opiates Screen Ur Oxycodone Screen Urine Methadone Screen Ur Propoxyphene Screen Acetaminophen Ur Barbiturates Screen Valproic Acid 74.0 Ur Tricyclics Screen Ur Phencyclidine Scrn Ur Amphetamine Screen U Methamphetamines Scrn U Benzodiazepines Scrn Urine Cocaine Screen U Cannabinoids Screen Ethyl Alcohol PD MEDICAL DECISION MAKING - ED course ED course: hx from pt 53 f hx COPD recently admitted for same finished steroids and now wheezing soa and cp are worse recent echo showed no major abn also feeling suicidal - cannot specify plan states thoughts tell her to do things - hx impulsive and severe suicidal attempts - has not done anything to harm herself yet - denies HI and hallucinations no fever no travel got decadron and nebs overnight, CXR was no acute process pt remains in ED awaiting SHARMIN chatterjee for her SI went to see pt 715 AM - she is getting a neb awake alert RRR mikaela wheezing states still suicidal SW here to see pt 730 AM SHARMIN interviewed pt and agrees needs inpt mental health SW felt pt was poor nay - she has previously left mental health facilities prior to completion of care plan SHARMIN called [facility] to dispatch DCR/[facility] for poor nay invol placement but [facility] declined to dispatch - per SW DEDRICK stated if pt agrred to go for inpt mental health care SW would need to place her (see SHARMIN notes) so SHARMIN is calling facilities to try and place pt 1030 SHARMIN update that mental health facilities decline to accept pt as voluntary given her prior non compliance and feeling that she is poor nay, calling DEDRICK back to dispatch pt still in ED and may take a while to be placed ordered all her daily meds as documented and confirmed by nursing except for advair which is non formulary and throazine which interacts with her trazodone DCR Mak placed pt at [place] - Sepsis Event Vital Signs: Vital Signs - 24 hr 03/01/18 03/01/18 03/01/18 22:11 22:45 23:10 Temperature Heart Rate 86 78 80 Respiratory 16 18 18 Rate Blood Pressure 130/99 H 131/67 H O2 Saturation 99 96 03/02/18 03/02/18 03/02/18 00:10 02:00 04:00 Temperature Heart Rate 86 88 86 Respiratory 18 18 18 Rate Blood Pressure 130/68 130/70 132/72 H O2 Saturation 98 98 96 03/02/18 03/02/18 03/02/18 06:00 07:12 07:28 Temperature 36.7 C Heart Rate 84 108 H 106 H Respiratory 18 16 16 Rate Blood Pressure 128/72 130/73 O2 Saturation 96 94 03/02/18 14:41 Temperature 36.9 C Heart Rate 103 H Respiratory 16 Rate Blood Pressure 141/69 H O2 Saturation 94 Oxygen O2 Source [] Room air O2 Source [] Room air O2 Source Room air Departure - Departure Disposition: 65 Psych Hosp/Unit DC/Xfer Clinical Impression: Acute exacerbation of COPD with asthma, Suicidal ideation Condition: Stable Prescriptions: predniSONE [Deltasone] 20 mg PO [id number] #21 tab Comments: Recommend prednisone taper and using your albuterol inhaler every 4 hr for your COPD exacerbation.
[2018-03-02 07:32] LABS: AMPHETAMINE SCREEN,URINE NEGATIVE (NEGATIVE); BENZODIAZEPINES SCREEN, URINE POSITIVE (NEGATIVE); COCAINE SCREEN URINE NEGATIVE (NEGATIVE); METHADONE SCREEN, URINE NEGATIVE (NEGATIVE); METHAMPHETAMINES SCREEN, URINE NEGATIVE (NEGATIVE); OPIATE SCREEN, URINE NEGATIVE (NEGATIVE); OXYCODONE SCREEN, URINE NEGATIVE (NEGATIVE); PROPOXYPHENE SCREEN, URINE NEGATIVE (NEGATIVE); TRICYCLIC ANTIDEPRESSANT,URINE NEGATIVE (NEGATIVE)
[2018-03-02] MEDS ORDERED: BENZONATATE 100 MG CAPSULE PO STA (07:35)
[2018-03-02] MEDS ORDERED: predniSONE 20 MG TABLET PO STA (07:35)
[2018-03-02] MEDS ORDERED: ALBUTEROL NEB 2.5 MG/3 ML INH STA (10:45)
[2018-03-02] MEDS ORDERED: buPROPion SR 150 MG TABLET PO SCH (15:00)
[2018-03-02] MEDS ORDERED: DIVALPROEX ER 250 MG TABLET PO SCH ×2 (15:00→21:00)
[2018-03-02] MEDS ORDERED: VERAPAMIL ER 180 MG TABLET PO SCH (15:00)
[2018-03-02] MEDS ORDERED: ARIPiprazole 5 MG TABLET PO SCH (15:00)
[2018-03-02] MEDS ORDERED: ALBUTEROL NEB 2.5 MG/3 ML INH SCH (15:00)
[2018-03-02 20:17] VITALS: BP 115/72
[2018-03-02] MEDS ORDERED: OLANZapine ODT 5 MG TABLET TL SCH (21:00)
[2018-03-02] MEDS ORDERED: traZODone 50 MG TABLET PO SCH (21:00)
[2018-03-03] MEDS ORDERED: predniSONE 20 MG TABLET PO SCH (09:00)
[2018-03-03] MEDS ORDERED: FAMOTIDINE 20 MG TABLET PO SCH (09:00)
[2018-03-03] MEDS ORDERED: LORazepam 0.5 MG TABLET PO SCH (09:00)
== END 2018-03-02 20:30 ==
LOC: EDUNIT# → ED 22:07
DX: J44.1 Chronic obstructive pulmonary disease with (acute) exacerbation (principal); F32.9 Major depressive disorder, single episode, unspecified; R45.851 Suicidal ideations; F41.9 Anxiety disorder, unspecified; I20.9 Angina pectoris, unspecified; E11.9 Type 2 diabetes mellitus without complications; K21.9 Gastro-esophageal reflux disease without esophagitis; F17.200 Nicotine dependence, unspecified, uncomplicated
CPT/HCPCS: 71046; 80053; 80164; 80306; 80307; 81003; 83690; 83880; 84484; 85025; 93005; 94640; 99284; 99285; A9270; G0480; J7512; 36415; 80320; 80329; 81001; 87086

== ENCOUNTER 2018-04-09 19:04 | Outpatient (CLI) | payer MEDICARE, MEDICAID | END 2018-04-09 19:05 | disposition critical access hospital (66) | LOC: EMS 19:04 | PROVIDERS: ATTEND Surgery | DX: R51 Headache (principal); R53.1 Weakness | CPT/HCPCS: A0425; A0429 ==

== ENCOUNTER 2018-04-09 19:26 | Emergency (ER) | payer MEDICARE, MEDICAID ==
[2018-04-09] MEDS ORDERED: IBUPROFEN 600 MG TABLET PO STA (19:52)
[2018-04-09] MEDS ORDERED: ALBUTEROL NEB 2.5 MG/3 ML INH STA (19:52)
[2018-04-09 20:19] LABS: BILIRUBIN,URINE NEGATIVE (NEGATIVE); GLUCOSE, URINE (UA) NEGATIVE (NEGATIVE); KETONES,URINE (UA) NEGATIVE (NEGATIVE); LEUKOCYTE ESTERASE, URINE NEGATIVE (NEGATIVE); NITRITE,URINE NEGATIVE (NEGATIVE); OCCULT BLOOD,URINE NEGATIVE (NEGATIVE); PROTEIN,URINE NEGATIVE (NEGATIVE); UROBILINOGEN,URINE 0.2 (NORMAL) E.U./dL (NORMAL)
[2018-04-09 20:21] LABS: CLARITY,URINE CLEAR (CLEAR)
[2018-04-09] MEDS ORDERED: HYDROcod/ACETAM 5/325 MG TABLET PO STA (21:39)
--- NOTE | 2018-04-09 21:42 | ED Physician Documentation ---
History of Present Illness - Stated complaint Stated Complaint: HEADACHE - Chief complaint Chief Complaint: Neuro - History obtained from History obtained from: Patient, EMS - History of Present Illness Timing: Today Pain level max: 8 Pain level now: 8 Improved by: nothing Worsened by: light, noise - Additonal information Additional information: Patient is a 53-year-old female with a long-standing history of headaches who presents to the emergency department with a gradual onset whole corneal headache today. Similar to her past migraines. Took Tylenol this morning without relief. Also complains of low back pain, this is an ongoing chronic issue. No change from baseline. Also has epigastric abdominal pain intermittently, none currently. States she has a hiatal hernia and sometimes this causes her pain. No fevers. Has had slight diarrhea. No dysuria. Review of Systems Ten Systems: 10 systems reviewed and negative Constitutional: denies: Fever, Chills Eyes: reports: Photophobia Ears: denies: Ear pain Nose: denies: Rhinorrhea / runny nose, Congestion Throat: denies: Sore throat Cardiac: denies: Chest pain / pressure, Palpitations Respiratory: denies: Cough, Wheezing Skin: denies: Rash Musculoskeletal: denies: Neck pain Neurologic: denies: Focal weakness, Numbness, Confused, Altered mental status, LOC PD PAST MEDICAL HISTORY - Past Medical History Past Medical History: Yes Cardiovascular: Angina, Other Respiratory: COPD, Pneumonia Endocrine/Autoimmune: Type 2 diabetes GI: GERD, Hiatal hernia CLINICAL REHAB LIAISON: None : None HEENT: None Psych: Depression, Schizophrenia, Post traumatic stress disorder Musculoskeletal: None Derm: None - Past Surgical History Past Surgical History: Yes General: Bowel surgery Ortho: Other /CLINICAL REHAB LIAISON: 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 HEENT: Cataracts - Present Medications Home Medications: Ambulatory Orders Medication Instructions Recorded Confirmed Verapamil ER [Calan SA] 180 mg PO DAILY 03/25/16 02/15/18 OLANZapine [Olanzapine] 10 mg PO BID 06/20/16 02/15/18 Albuterol Sulf [Ventolin Hfa 2 puffs INH Q4H PRN 12/25/16 02/15/18 Inhaler] Divalproex ER [Depakote ER] 1,250 mg PO QPM 12/25/16 02/15/18 Divalproex ER [Depakote ER] 750 mg PO DAILY 12/25/16 02/15/18 Famotidine 20 mg PO DAILY 12/25/16 02/15/18 Lorazepam 0.5 mg PO DAILY 12/25/16 02/15/18 Trazodone HCl 400 mg PO QPM 12/25/16 02/15/18 ARIPiprazole [Aripiprazole] 10 mg PO DAILY 05/23/17 02/15/18 Bupropion HCl [Bupropion HCl Sr] 150 mg PO Q12H 05/23/17 02/15/18 chlorproMAZINE [Thorazine] 25 mg PO BID 05/23/17 02/15/18 Fluticasone/Salmeterol [Advair 1 puffs INH BID 02/15/18 02/15/18 250-50 Diskus] Sucralfate 1 tab PO DAILY 02/15/18 02/15/18 Nicotine 14 mg Patch [Nicoderm] 1 each TOP Q24H #7 patch 02/17/18 Nicotine 7 mg Patch [Nicoderm] 1 each TOP Q24H #7 patch 02/17/18 Clindamycin HCl [Clindamycin 150MG 450 mg PO TID 10 Days #90 capsule 02/18/18 CAP] Fluticasone [Flonase] 2 sprays ABE DAILY #5 bottle 02/18/18 L. Acidophilus/L.bulgaricus 1 each PO BID #60 tablet 02/18/18 [Lactobacillus Tablet] Prednisone 10 mg PO DAILY 8 Days #26 tab.ds.pk 02/18/18 guaiFENesin [Mucinex] 600 mg PO BID #60 tablet 02/18/18 predniSONE [Deltasone] 20 mg PO [id number] #21 tab 03/02/18 - Allergies Allergies/Adverse Reactions: Allergies Allergy/AdvReac Type Severity Reaction Status Date / Time azithromycin Allergy Severe Hives Verified 02/14/18 19:52 haloperidol Allergy Severe Anaphylaxis Verified 02/14/18 19:52 Penicillins Allergy Severe Anaphylaxis Verified 02/14/18 19:52 amoxicillin [Amoxicillin] Allergy Intermediate Rash Verified 02/14/18 19:52 grapefruit Allergy Intermediate Rash Verified 02/14/18 19:52 iodine Allergy Intermediate Rash Verified 02/14/18 19:52 Sulfa (Sulfonamide Allergy Intermediate Rash Verified 02/14/18 19:52 Antibiotics) haloperidol lactate * AdvReac Rash Verified 02/14/18 19:52 [From Haldol] - Social History Does the pt smoke?: Yes Smoking Status: Current every day smoker Does the pt drink ETOH?: No Does the pt have substance abuse?: No - Immunizations Immunizations are current?: No Immunizations: TDAP >10years/unknown - POLST Patient has POLST: No PD ED PE NORMAL - Vitals Vital signs reviewed: Yes - General General: Alert and oriented X 3, No acute distress, Well developed/nourished - HEENT HEENT: Atraumatic, PERRL, EOMI, Ears normal, Moist mucous membranes, Pharynx benign - Neck Neck: Supple, no meningeal sign, No bony TTP - Cardiac Cardiac: RRR, Strong equal pulses - Respiratory Respiratory: No respiratory distress, Clear bilaterally - Abdomen Abdomen: Soft, Non tender, Non distended - Back Back: No spinal TTP - Derm Derm: Warm and dry, No rash - Extremities Extremities: No edema - Neuro Neuro: Alert and oriented X 3, 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, No motor deficit, No sensory deficit, Normal speech - Psych Psych: Normal mood, Normal affect Results - Vitals Vitals: Vital Signs - 24 hr 04/09/18 04/09/18 04/09/18 19:30 20:05 21:55 Temperature 37.0 C Heart Rate 81 81 75 Respiratory 16 18 16 Rate Blood Pressure 112/77 124/72 O2 Saturation 94 93 04/09/18 22:41 Temperature Heart Rate 74 Respiratory 18 Rate Blood Pressure 161/96 H O2 Saturation 96 Oxygen O2 Source [With Activity] Room air O2 Source [Without Activity] Room air O2 Source Room air - Labs Labs: Laboratory Tests 04/09/18 19:44 Urine Color YELLOW Urine Clarity CLEAR Urine pH 7.0 Ur Specific [place] <=1.005 Urine Protein NEGATIVE Urine Glucose (UA) NEGATIVE Urine Ketones NEGATIVE Urine Occult Blood NEGATIVE Urine Nitrite NEGATIVE Urine Bilirubin NEGATIVE Urine Urobilinogen 0.2 (NORMAL) Ur Leukocyte Esterase NEGATIVE Ur Microscopic Review NOT INDICATED Urine Culture Comments NOT INDICATED PD MEDICAL DECISION MAKING - ED course Complexity details: reviewed results, re-evaluated patient, considered differential, d/w patient ED course: Patient is a well-known 53-year-old female who presents to the emergency department with a headache. Resolved with Imitrex. She is well-appearing, nontoxic. Afebrile. No new back or abdominal pain. She is requesting a Coca- Cola to drink. Tolerating p.o. without difficulty and ambulating without difficulty. We will have her follow-up with her doctor for further care. Patient counseled regarding signs and symptoms for which I believe and urgent re -evaluation would be necessary. Patient with good understanding of and agreement to plan and is comfortable going home at this time This document was made in part using voice recognition software. While efforts are made to proofread this document, sound alike and grammatical errors may occur. - Sepsis Event Vital Signs: Vital Signs - 24 hr 04/09/18 04/09/18 04/09/18 19:30 20:05 21:55 Temperature 37.0 C Heart Rate 81 81 75 Respiratory 16 18 16 Rate Blood Pressure 112/77 124/72 O2 Saturation 94 93 04/09/18 22:41 Temperature Heart Rate 74 Respiratory 18 Rate Blood Pressure 161/96 H O2 Saturation 96 Oxygen O2 Source [With Activity] Room air O2 Source [Without Activity] Room air O2 Source Room air Departure - Departure Disposition: 01 Home, Self Care Clinical Impression: Headache Qualifiers: Headache type: unspecified Headache chronicity pattern: acute headache Intractability: not intractable Qualified Code(s): R51 - Headache Condition: Good Instructions: ED Cephalgia Unspecified Follow-Up: your,doctor in 1 week [Other] Comments: Return if you worsen. You should continue to improve tonight. Discharge Date/Time: 04/09/18 22:42
[2018-04-09] MEDS ORDERED: SUMAtriptan 6 MG/0.5 ML VIAL SUBQ STA (21:48)
[2018-04-09 22:42] VITALS: BP 161/96
== END 2018-04-09 22:42 | disposition home or self-care (01) ==
LOC: EDSEX → EDUNIT# → ED 19:26
DX: R51 Headache (principal); E11.9 Type 2 diabetes mellitus without complications; J44.9 Chronic obstructive pulmonary disease, unspecified; F17.200 Nicotine dependence, unspecified, uncomplicated
CPT/HCPCS: 81001; 81003; 87086; 94640; 96372; 99283

== ENCOUNTER 2018-04-13 16:01 | Outpatient (CLI) | payer MEDICARE, MEDICAID | END 2018-04-13 16:02 | disposition critical access hospital (66) | LOC: EMS 16:01 | PROVIDERS: ATTEND Surgery | DX: T45.0X2A Poisoning by antiallergic and antiemetic drugs, intentional self-harm, initial encounter (principal) | CPT/HCPCS: A0425; A0429 ==

== ENCOUNTER 2018-04-13 16:23 | Emergency (ER) | payer MEDICARE, MEDICAID ==
[2018-04-13 16:35] LABS: MUDS CUTOFF CONCENTRATIONS CUTOFF CONC BELOW:
--- NOTE | 2018-04-13 16:44 | ED Physician Documentation ---
PD HPI [facility] - Stated complaint Stated Complaint: OD - Chief complaint Chief Complaint: [facility] - History obtained from History obtained from: Patient, EMS - History of Present Illness Primary symptom: Other (She took may be 100-150 mg, but I am told definitely less than 200 mg based on the volume of a nighttime sleep aid containing diphenhydramine around 45 minutes ago. There was no self-harm. Her roommate called the ambulance. She feels fine, she just wanted to go to sleep because she had a stressful day yesterday. She denies SI. 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 HEENT: None Psych: Depression, Schizophrenia, Post traumatic stress disorder Musculoskeletal: None Derm: None - Past Surgical History Past Surgical History: Yes General: Bowel surgery Ortho: Other /SHIP LABORER: 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 HEENT: Cataracts - Present Medications Home Medications: Ambulatory Orders Medication Instructions Recorded Confirmed Verapamil ER [Calan SA] 180 mg PO DAILY 03/25/16 02/15/18 Divalproex ER [Depakote ER] 250 mg PO DAILY 12/25/16 02/15/18 Divalproex ER [Depakote ER] 250 mg PO QPM 12/25/16 02/15/18 Sucralfate 1 tab PO DAILY 02/15/18 02/15/18 Famotidine 20 mg PO 04/13/18 QUEtiapine [SEROquel] 300 mg PO QPM 04/13/18 04/13/18 clonazePAM [Clonazepam] 0.5 mg PO 04/13/18 - Allergies Allergies/Adverse Reactions: Allergies Allergy/AdvReac Type Severity Reaction Status Date / Time azithromycin Allergy Severe Hives Verified 04/13/18 16:31 haloperidol Allergy Severe Anaphylaxis Verified 02/14/18 19:52 Penicillins Allergy Severe Anaphylaxis Verified 02/14/18 19:52 amoxicillin [Amoxicillin] Allergy Intermediate Rash Verified 02/14/18 19:52 grapefruit Allergy Intermediate Rash Verified 02/14/18 19:52 iodine Allergy Intermediate Rash Verified 02/14/18 19:52 Sulfa (Sulfonamide Allergy Intermediate Rash Verified 02/14/18 19:52 Antibiotics) haloperidol lactate * AdvReac Rash Verified 02/14/18 19:52 [From Haldol] - Social History Does the pt smoke?: Yes Smoking Status: Current every day smoker Does the pt drink ETOH?: No Does the pt have substance abuse?: No - Immunizations Immunizations are current?: No Immunizations: TDAP >10years/unknown - POLST Patient has POLST: No PD ED PE NORMAL - Vitals Vital signs reviewed: Yes - General General: Alert and oriented X 3, No acute distress - HEENT HEENT: PERRL, Pharynx benign - Neuro Neuro: Alert and oriented X 3, 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 representative 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 Eye Opening: Spontaneous Motor: Obeys Commands Verbal: Oriented GCS Score: 15 - Psych Psych: Normal mood, Normal affect Results - Vitals Vitals: Vital Signs - 24 hr 04/13/18 04/13/18 04/13/18 16:24 17:49 18:20 Temperature 36.7 C Heart Rate 97 87 88 Respiratory 16 22 22 Rate Blood Pressure 138/91 H 143/97 H 138/97 H O2 Saturation 95 96 96 Oxygen O2 Source [] Room air O2 Source [] Room air O2 Source Room air - Labs Labs: Laboratory Tests 04/13/18 04/13/18 16:00 16:40 Sodium 140 Potassium 3.7 Chloride 106 Carbon Dioxide 24 Anion Gap 10.0 BUN 11 Creatinine 0.9 Estimated GFR (MDRD) 65 L Glucose 107 H Calcium 9.5 Total Bilirubin 0.2 AST 20 ALT 15 Alkaline Phosphatase 72 Total Protein 7.3 Albumin 3.8 Globulin 3.5 Albumin/Globulin Ratio 1.1 Lipase 18 L Salicylates < 6.0 Urine Opiates Screen NEGATIVE Ur Oxycodone Screen NEGATIVE Urine Methadone Screen NEGATIVE Ur Propoxyphene Screen NEGATIVE Acetaminophen < 10 L Ur Barbiturates Screen NEGATIVE Ur Tricyclics Screen POSITIVE H Ur Phencyclidine Scrn NEGATIVE Ur Amphetamine Screen NEGATIVE U Methamphetamines Scrn NEGATIVE U Benzodiazepines Scrn NEGATIVE Urine Cocaine Screen NEGATIVE U Cannabinoids Screen NEGATIVE Ethyl Alcohol < 5.0 - Rads (name of study) L ribs and chest Radiology: EMP read contemporaneously (normal) PD MEDICAL DECISION MAKING - ED course ED course: After the initial evaluation she also had an ancillary complaint, she hit her left chest wall in a mild fall last night and wondered if she had a broken rib. She was observed for a couple of hours for the overdose without abnormal vital signs or neurologic status. - Sepsis Event Vital Signs: Vital Signs - 24 hr 04/13/18 04/13/18 04/13/18 16:24 17:49 18:20 Temperature 36.7 C Heart Rate 97 87 88 Respiratory 16 22 22 Rate Blood Pressure 138/91 H 143/97 H 138/97 H O2 Saturation 95 96 96 Oxygen O2 Source [] Room air O2 Source [] Room air O2 Source Room air Departure - Departure Disposition: 01 Home, Self Care Clinical Impression: Overdose Qualifiers: Encounter type: initial encounter Injury intent: undetermined intent Qualified Code(s): T50.904A - Poisoning by unspecified drugs, medicaments and biological substances, undetermined, initial encounter Contusion of left chest wall Qualifiers: Encounter type: initial encounter Qualified Code(s): S20.212A - Contusion of left front wall of thorax, initial encounter Condition: Good Instructions: ED Overdose Accidental, ED Contusion Rib Comments: Take medications only as prescribed/instructed. Discharge Date/Time: 04/13/18 18:21
[2018-04-13 16:56] LABS: AMPHETAMINE SCREEN,URINE NEGATIVE (NEGATIVE); BENZODIAZEPINES SCREEN, URINE NEGATIVE (NEGATIVE); COCAINE SCREEN URINE NEGATIVE (NEGATIVE); METHADONE SCREEN, URINE NEGATIVE (NEGATIVE); METHAMPHETAMINES SCREEN, URINE NEGATIVE (NEGATIVE); OPIATE SCREEN, URINE NEGATIVE (NEGATIVE); OXYCODONE SCREEN, URINE NEGATIVE (NEGATIVE); PROPOXYPHENE SCREEN, URINE NEGATIVE (NEGATIVE); TRICYCLIC ANTIDEPRESSANT,URINE POSITIVE (NEGATIVE)
[2018-04-13 17:02] LABS: ALBUMIN 3.8 g/dL (3.2-5.5); ALBUMIN/GLOBULIN RATIO 1.1 (1.0-2.2); ALKALINE PHOSPHATASE 72 IU/L (42-121); ALT ALANINE AMINOTRANSFERASE 15 IU/L (10-60); AST ASPARTATE AMINOTRANSFERASE 20 IU/L (10-42); BILIRUBIN,TOTAL 0.2 mg/dL (0.2-1.0); BUN - BLOOD UREA NITROGEN 11 mg/dL (6-20); CALCIUM 9.5 mg/dL (8.5-10.3); CARBON DIOXIDE - CO2 24 mmol/L (21-32); CHLORIDE 106 mmol/L (101-111); CREATININE 0.9 mg/dL (0.4-1.0); GFR - MDRD 65 (>89); GLUCOSE 107 mg/dL (70-100); LIPASE 18 U/L (22-51); SALICYLATE < 6.0 mg/dL; SODIUM 140 mmol/L (135-145); TOTAL PROTEIN 7.3 g/dL (6.7-8.2)
[2018-04-13 17:05] LABS: ACETAMINOPHEN < 10 ug/mL (10-30)
--- NOTE | 2018-04-13 17:50 | XRAY Report ---
Procedure Date: 04/13/2018 Accession Number: [id number] / [id number] Procedure: XR - Ribs w/PA Chest LT CPT Code: FULL RESULT: EXAM: LEFT RIB RADIOGRAPHY EXAM DATE: 04/13/2018 05:34 PM. CLINICAL HISTORY: Rib injury and pain. COMPARISON: CHEST TWO VIEW 03/13/2018. TECHNIQUE: 1 view of the chest and 2 views of the ribs. FINDINGS: Bones: Normal. No fracture or bone lesion. Lungs: No consolidation. Lung volumes are stable. Negative for pneumothorax. Mediastinum: Heart and mediastinal contours are unremarkable. Other: None. IMPRESSION: No rib fracture or pneumothorax. RADIA
[2018-04-13 18:21] VITALS: BP 138/97
== END 2018-04-13 18:21 | disposition home or self-care (01) ==
LOC: EDUNIT# → ED 16:23
DX: T50.991A Poisoning by other drugs, medicaments and biological substances, accidental (unintentional), initial encounter (principal); S20.212A Contusion of left front wall of thorax, initial encounter; W19.XXXA Unspecified fall, initial encounter; W22.8XXA Striking against or struck by other objects, initial encounter; E11.9 Type 2 diabetes mellitus without complications; F17.200 Nicotine dependence, unspecified, uncomplicated
CPT/HCPCS: 36415; 80053; 80306; 80307; 80320; 80329; 83690; 99283; 99284

== ENCOUNTER 2018-04-16 14:50 | Outpatient (CLI) | payer MEDICARE, MEDICAID | END 2018-04-16 14:51 | disposition critical access hospital (66) | LOC: EMS 14:50 | PROVIDERS: ATTEND Surgery | DX: R45.851 Suicidal ideations (principal); R46.89 Other symptoms and signs involving appearance and behavior | CPT/HCPCS: A0425; A0429 ==

== ENCOUNTER 2018-04-16 15:15 | Emergency (ER) | payer MEDICARE, MEDICAID ==
--- NOTE | 2018-04-16 15:36 | ED Physician Documentation ---
PD HPI MHE - Stated complaint Stated Complaint: MHE - Chief complaint Chief Complaint: MHE - History obtained from History obtained from: Patient - History of Present Illness Primary symptom: Suicidal ideation (She says she wants the police SWAT team to suture and threatens that she would cut herself. Here in the ER she is yelling that she wants to leave in a yellow body bag. She would focus and talk with me and asked what would happen if she went home and she said she would likely kill her self. She does have history of anxiety and suicidal ideation in the past and has had suicide attempts in the past. She is recently hospitalized for depression with some medication adjustments.), Anxiety Timing - onset: How many days ago (the past few days) Contributing factors: No: Substance abuse - ETOH, Substance abuse - drugs, Off meds Similar symptoms before: Diagnosis (depression and suicidality) Recently seen: Emergency Dept, Transferred Review of Systems Constitutional: denies: Fever Nose: denies: Rhinorrhea / runny nose, Congestion Throat: denies: Sore throat Respiratory: denies: Cough GI: denies: Abdominal Pain, Vomiting, Diarrhea Skin: denies: Rash Musculoskeletal: denies: Neck pain, Back pain Neurologic: reports: Generalized weakness. denies: Focal weakness, Numbness, Near syncope Psychiatric: reports: Depressed, Suicidal, Anxiety, Insomnia. denies: Homicidal , Delusions PD PAST MEDICAL HISTORY - Past Medical History Cardiovascular: Angina, Other Respiratory: COPD, Pneumonia Endocrine/Autoimmune: Type 2 diabetes GI: GERD, Hiatal hernia ESCROW CLOSER: None : None HEENT: None Psych: Depression, Schizophrenia, Post traumatic stress disorder Musculoskeletal: None Derm: None - Past Surgical History Past Surgical History: Yes General: Bowel surgery Ortho: Other /ESCROW CLOSER: 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 HEENT: Cataracts - Present Medications Home Medications: Ambulatory Orders Medication Instructions Recorded Confirmed Verapamil ER [Calan SA] 180 mg PO DAILY 03/25/16 02/15/18 Divalproex ER [Depakote ER] 250 mg PO BID 12/25/16 02/15/18 Divalproex ER [Depakote ER] 500 mg PO BID 12/25/16 02/15/18 Sucralfate 1 tab PO DAILY 02/15/18 02/15/18 Famotidine 20 mg PO 04/13/18 QUEtiapine [SEROquel] 100 mg PO QPM 04/13/18 04/13/18 clonazePAM [Clonazepam] 0.5 mg PO 04/13/18 - Allergies Allergies/Adverse Reactions: Allergies Allergy/AdvReac Type Severity Reaction Status Date / Time azithromycin Allergy Severe Hives Verified 04/16/18 15:28 haloperidol Allergy Severe Anaphylaxis Verified 04/16/18 15:28 Penicillins Allergy Severe Anaphylaxis Verified 04/16/18 15:28 amoxicillin [Amoxicillin] Allergy Intermediate Rash Verified 04/16/18 15:28 grapefruit Allergy Intermediate Rash Verified 04/16/18 15:28 iodine Allergy Intermediate Rash Verified 04/16/18 15:28 Sulfa (Sulfonamide Allergy Intermediate Rash Verified 04/16/18 15:28 Antibiotics) haloperidol lactate * AdvReac Rash Verified 04/16/18 15:28 [From Haldol] - Social History Does the pt smoke?: Yes Smoking Status: Current every day smoker Does the pt drink ETOH?: No Does the pt have substance abuse?: No - Immunizations Immunizations are current?: No Immunizations: TDAP >10years/unknown - POLST Patient has POLST: No PD ED PE NORMAL - Vitals Vital signs reviewed: Yes - General General: Alert and oriented X 3, Well developed/nourished, Other (anxious, and is wandering in ER, not following direction well. Yelling that she wants to be taken away in a yellow body bag. ) - HEENT HEENT: Atraumatic, PERRL, EOMI, Pharynx benign - Neck Neck: Supple, no meningeal sign, No adenopathy - Cardiac Cardiac: RRR, No murmur - Respiratory Respiratory: Clear bilaterally - Abdomen Abdomen: Soft, Non tender - Female Female : Deferred - Rectal Rectal: Deferred - Back Back: No CVA TTP - Derm Derm: Normal color, Warm and dry - Extremities Extremities: No deformity, No tenderness to palpate - Neuro Neuro: Alert and oriented X 3, No motor deficit, Normal speech Results - Vitals Vitals: Vital Signs - 24 hr 04/16/18 04/16/18 04/16/18 15:17 16:05 19:52 Temperature 36.5 C Heart Rate 95 90 Respiratory 16 18 Rate Blood Pressure 149/109 H 125/85 H 139/102 H O2 Saturation 95 95 04/16/18 21:30 Temperature Heart Rate 84 Respiratory 16 Rate Blood Pressure 121/77 O2 Saturation 100 Oxygen O2 Source [With Activity] Room air O2 Source [Without Activity] Room air O2 Source Room air - Labs Labs: Laboratory Tests 04/16/18 04/16/18 04/16/18 15:49 16:05 16:05 WBC 10.9 H RBC 4.55 Hgb 13.9 Hct 41.4 MCV 90.9 MCH 30.5 MCHC 33.5 RDW 14.5 Plt Count 324 MPV 9.1 Neut # (Auto) 5.7 Lymph # (Auto) 3.6 H [place] # (Auto) 1.5 H Eos # (Auto) 0.1 Baso # (Auto) 0.1 Absolute Nucleated RBC 0.00 Nucleated RBC % 0.0 Manual Slide Review Indicated Platelet Estimate NORMAL (130-450,000) Platelet Morphology 1+ LARGE PLATELETS RBC Morph Micro Appear NORMAL APPEARANCE Sodium 137 Potassium 3.9 Chloride 104 Carbon Dioxide 24 Anion Gap 9.0 BUN 12 Creatinine 0.9 Estimated GFR (MDRD) 65 L Glucose 107 H Glycated Hemoglobin Estim Average Glucose Calcium 9.2 Total Bilirubin 0.9 AST 22 ALT 15 Alkaline Phosphatase 64 Total Protein 7.7 Albumin 3.7 Globulin 4.0 Albumin/Globulin Ratio 0.9 L Lipase 18 L TSH Urine Color YELLOW Urine Clarity CLEAR Urine pH 7.0 Ur Specific [place] 1.015 Urine Protein NEGATIVE Urine Glucose (UA) NEGATIVE Urine Ketones NEGATIVE Urine Occult Blood NEGATIVE Urine Nitrite NEGATIVE Urine Bilirubin NEGATIVE Urine Urobilinogen 0.2 (NORMAL) Ur Leukocyte Esterase NEGATIVE Ur Microscopic Review NOT INDICATED Urine Culture Comments NOT INDICATED Last Dose Date Last Dose Time Salicylates < 6.0 Urine Opiates Screen NEGATIVE Ur Oxycodone Screen NEGATIVE Urine Methadone Screen NEGATIVE Ur Propoxyphene Screen NEGATIVE Acetaminophen < 10 L Ur Barbiturates Screen NEGATIVE Valproic Acid Ur Tricyclics Screen NEGATIVE Ur Phencyclidine Scrn NEGATIVE Ur Amphetamine Screen NEGATIVE U Methamphetamines Scrn NEGATIVE U Benzodiazepines Scrn NEGATIVE Urine Cocaine Screen NEGATIVE U Cannabinoids Screen NEGATIVE Ethyl Alcohol < 5.0 04/16/18 04/16/18 04/16/18 16:05 16:06 16:06 WBC RBC Hgb Hct MCV MCH MCHC RDW Plt Count MPV Neut # (Auto) Lymph # (Auto) [place] # (Auto) Eos # (Auto) Baso # (Auto) Absolute Nucleated RBC Nucleated RBC % Manual Slide Review Platelet Estimate Platelet Morphology RBC Morph Micro Appear Sodium Potassium Chloride Carbon Dioxide Anion Gap BUN Creatinine Estimated GFR (MDRD) Glucose Glycated Hemoglobin 5.4 Estim Average Glucose 108 H Calcium Total Bilirubin AST ALT Alkaline Phosphatase Total Protein Albumin Globulin Albumin/Globulin Ratio Lipase TSH 2.70 Urine Color Urine Clarity Urine pH Ur Specific [place] Urine Protein Urine Glucose (UA) Urine Ketones Urine Occult Blood Urine Nitrite Urine Bilirubin Urine Urobilinogen Ur Leukocyte Esterase Ur Microscopic Review Urine Culture Comments Last Dose Date UNKNOWN Last Dose Time UNKNOWN Salicylates Urine Opiates Screen Ur Oxycodone Screen Urine Methadone Screen Ur Propoxyphene Screen Acetaminophen Ur Barbiturates Screen Valproic Acid 36.8 Ur Tricyclics Screen Ur Phencyclidine Scrn Ur Amphetamine Screen U Methamphetamines Scrn U Benzodiazepines Scrn Urine Cocaine Screen U Cannabinoids Screen Ethyl Alcohol PD MEDICAL DECISION MAKING - ED course Complexity details: reviewed old records, reviewed results, re-evaluated patient (calmer after meds but still feeling suicidal and depressed. ), considered differential (She does seem a threat to herself by her statements and does have past history of suicide attempts and impulsive behavior. I feel she is at risk of self-harm.), d/w patient - Sepsis Event Vital Signs: Vital Signs - 24 hr 04/16/18 04/16/18 04/16/18 15:17 16:05 19:52 Temperature 36.5 C Heart Rate 95 90 Respiratory 16 18 Rate Blood Pressure 149/109 H 125/85 H 139/102 H O2 Saturation 95 95 04/16/18 21:30 Temperature Heart Rate 84 Respiratory 16 Rate Blood Pressure 121/77 O2 Saturation 100 Oxygen O2 Source [With Activity] Room air O2 Source [Without Activity] Room air O2 Source Room air Departure - Departure Disposition: 65 Psych Hosp/Unit DC/Xfer Clinical Impression: Suicidal ideation Schizoaffective disorder Qualifiers: Schizoaffective disorder type: unspecified Qualified Code(s): F25.9 - Schizoaffective disorder, unspecified Condition: Stable Record reviewed to determine appropriate education?: Yes
[2018-04-16] MEDS ORDERED: KETAMINE 500 MG/10 ML VIAL IM STA (16:05)
[2018-04-16 16:16] LABS: BASOPHILS # (AUTO) 0.1 10^3/uL (0.0-0.1); BASOPHILS % (AUTO) 0.8 %; EOSINOPHILS # (AUTO) 0.1 10^3/uL (0.0-0.7); HGB - HEMOGLOBIN 13.9 g/dL (12.0-16.0); LYMPHOCYTES # (AUTO) 3.6 10^3/uL (1.5-3.5); LYMPHOCYTES % (AUTO) 32.6 %; MEAN CORPUSCULAR HEMOGLOBIN 30.5 pg (27.0-31.0); MEAN CORPUSCULAR HGB CONC 33.5 g/dL (32.0-36.0); MEAN CORPUSCULAR VOLUME 90.9 fL (81.0-99.0); MEAN PLATELET VOLUME 9.1 fL (7.9-10.8); MONOCYTES # (AUTO) 1.5 10^3/uL (0.0-1.0); MONOCYTES % (AUTO) 13.5 %; NEUTROPHILS # (AUTO) 5.7 10^3/uL (1.5-6.6); NEUTROPHILS % (AUTO) 52.1 %; PLT - PLATELET COUNT 324 10^3/uL (130-450); RED BLOOD COUNT 4.55 10^6/uL (4.20-5.40); RED CELL DISTRIBUTION WIDTH 14.5 % (12.0-15.0); WHITE BLOOD COUNT 10.9 x10^3/uL (4.8-10.8)
[2018-04-16 16:29] LABS: ALBUMIN 3.7 g/dL (3.2-5.5); ALBUMIN/GLOBULIN RATIO 0.9 (1.0-2.2); ALKALINE PHOSPHATASE 64 IU/L (42-121); ALT ALANINE AMINOTRANSFERASE 15 IU/L (10-60); AST ASPARTATE AMINOTRANSFERASE 22 IU/L (10-42); BILIRUBIN,TOTAL 0.9 mg/dL (0.2-1.0); BUN - BLOOD UREA NITROGEN 12 mg/dL (6-20); CALCIUM 9.2 mg/dL (8.5-10.3); CARBON DIOXIDE - CO2 24 mmol/L (21-32); CHLORIDE 104 mmol/L (101-111); CREATININE 0.9 mg/dL (0.4-1.0); GFR - MDRD 65 (>89); GLUCOSE 107 mg/dL (70-100); LIPASE 18 U/L (22-51); SALICYLATE < 6.0 mg/dL; SODIUM 137 mmol/L (135-145); TOTAL PROTEIN 7.7 g/dL (6.7-8.2)
[2018-04-16 16:29] LABS: MUDS CUTOFF CONCENTRATIONS CUTOFF CONC BELOW:
[2018-04-16 16:30] LABS: BILIRUBIN,URINE NEGATIVE (NEGATIVE); GLUCOSE, URINE (UA) NEGATIVE (NEGATIVE); KETONES,URINE (UA) NEGATIVE (NEGATIVE); LEUKOCYTE ESTERASE, URINE NEGATIVE (NEGATIVE); NITRITE,URINE NEGATIVE (NEGATIVE); OCCULT BLOOD,URINE NEGATIVE (NEGATIVE); PROTEIN,URINE NEGATIVE (NEGATIVE); UROBILINOGEN,URINE 0.2 (NORMAL) E.U./dL (NORMAL)
[2018-04-16 16:36] LABS: PLATELET ESTIMATE, MANUAL NORMAL (130-450,000) (NORMAL); PLATELET MORPHOLOGY 1+ LARGE PLATELETS (NORMAL); RBC MORPHOLOGY (MULTIPLE) NORMAL APPEARANCE (NORMAL)
[2018-04-16 16:45] LABS: CLARITY,URINE CLEAR (CLEAR)
[2018-04-16 16:46] LABS: AMPHETAMINE SCREEN,URINE NEGATIVE (NEGATIVE); BENZODIAZEPINES SCREEN, URINE NEGATIVE (NEGATIVE); COCAINE SCREEN URINE NEGATIVE (NEGATIVE); METHADONE SCREEN, URINE NEGATIVE (NEGATIVE); METHAMPHETAMINES SCREEN, URINE NEGATIVE (NEGATIVE); OPIATE SCREEN, URINE NEGATIVE (NEGATIVE); OXYCODONE SCREEN, URINE NEGATIVE (NEGATIVE); PROPOXYPHENE SCREEN, URINE NEGATIVE (NEGATIVE); TRICYCLIC ANTIDEPRESSANT,URINE NEGATIVE (NEGATIVE)
[2018-04-16 17:00] LABS: ACETAMINOPHEN < 10 ug/mL (10-30)
[2018-04-16] MEDS ORDERED: ACETAMINOPHEN 325 MG TABLET PO STA (18:51)
[2018-04-16] MEDS ORDERED: LORazepam 0.5 MG TABLET PO STA ×2 (19:42→22:52)
[2018-04-16] MEDS ORDERED: OLANZapine 10 MG VIAL IM STA ×2 (20:33→21:00)
[2018-04-16 21:44] LABS: VALPROIC ACID (DEPAKOTE) 36.8 ug/mL
[2018-04-16 22:00] LABS: HB2 TOTAL 15.2 g/dL; HEMOGLOBIN A1C 0.54 g/dL; HEMOGLOBIN A1C % 5.4 % (4.6-6.2)
[2018-04-16] MEDS ORDERED: DIVALPROEX ER 250 MG TABLET PO STA (22:51)
[2018-04-16 23:06] VITALS: BP 124/68
== END 2018-04-16 23:35 ==
LOC: EDUNIT# → SUPCPDRO 15:15 → ED 15:15
DX: R45.851 Suicidal ideations (principal); F25.9 Schizoaffective disorder, unspecified; E11.9 Type 2 diabetes mellitus without complications; F17.200 Nicotine dependence, unspecified, uncomplicated
CPT/HCPCS: 36415; 80053; 80164; 81003; 83036; 83690; 84443; 85025; 96372; 99284; A9270; 80306; 80307; 80320; 80329; 81001; 87086

== ENCOUNTER 2018-04-16 23:41 | Outpatient (CLI) | payer MEDICARE, MEDICAID | END 2018-04-16 23:42 | LOC: EMS 23:41 | PROVIDERS: ATTEND Surgery | DX: R45.851 Suicidal ideations (principal) | CPT/HCPCS: A0425; A0428 ==

== ENCOUNTER 2018-05-15 09:26 | Outpatient (CLI) | payer MEDICARE, MEDICAID | END 2018-05-15 09:27 | disposition home or self-care (01) | LOC: LAB.N 09:26 | PROVIDERS: ATTEND Family Medicine | DX: R73.01 Impaired fasting glucose (principal); F31.70 Bipolar disorder, currently in remission, most recent episode unspecified | CPT/HCPCS: 36415; 80053; 80061; 83036; 83721; 84443; 85025 ==

== ENCOUNTER 2018-05-16 15:45 | Outpatient (CLI) | payer MEDICARE, MEDICAID | END 2018-05-16 15:46 | disposition critical access hospital (66) | LOC: EMS 15:45 | PROVIDERS: ATTEND Surgery | DX: R06.02 Shortness of breath (principal); R05 Cough | CPT/HCPCS: A0425; A0429 ==

== ENCOUNTER 2018-05-16 16:08 | Emergency (ER) | payer MEDICARE, MEDICAID ==
[2018-05-16] MEDS ORDERED: predniSONE 20 MG TABLET PO STA (16:13)
[2018-05-16] MEDS ORDERED: ONDANSETRON ODT 4 MG TABLET TL STA (16:13)
[2018-05-16] MEDS ORDERED: IPRATROPIUM/ALBUTEROL 3 ML NEB INH STA (16:13)
[2018-05-16] MEDS ORDERED: LOPERAMIDE 2 MG CAPSULE PO STA (16:13)
--- NOTE | 2018-05-16 16:15 | ED Physician Documentation ---
PD HPI DYSPNEA - Stated complaint Stated Complaint: SOA - History obtained from History obtained from: Patient, EMS - History of Present Illness Timing - onset: Other (Sick for 3 days with productive cough, shortness of breath. She is also had nausea and diarrhea. No sick contacts. Of note she has had respiratory infections and bronchitis in the past and despite having psychiatric illness does not have ill effect with steroids.) Review of Systems Constitutional: denies: Fever, Chills Nose: denies: Rhinorrhea / runny nose Throat: denies: Sore throat Respiratory: reports: Dyspnea, Cough GI: denies: Abdominal Pain PD PAST MEDICAL HISTORY - Past Medical History Cardiovascular: Angina, Other Respiratory: COPD, Pneumonia Endocrine/Autoimmune: Type 2 diabetes GI: GERD, Hiatal hernia MARRIAGE COUNSELOR: None : None HEENT: None Psych: Depression, Schizophrenia, Post traumatic stress disorder Musculoskeletal: None Derm: None - Past Surgical History Past Surgical History: Yes General: Bowel surgery Ortho: Other /MARRIAGE COUNSELOR: 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 HEENT: Cataracts - Present Medications Home Medications: Ambulatory Orders Medication Instructions Recorded Confirmed Verapamil ER [Calan SA] 180 mg PO DAILY 03/25/16 02/15/18 Divalproex ER [Depakote ER] 250 mg PO BID 12/25/16 02/15/18 Divalproex ER [Depakote ER] 500 mg PO BID 12/25/16 02/15/18 Sucralfate 1 tab PO DAILY 02/15/18 02/15/18 Famotidine 20 mg PO 04/13/18 QUEtiapine [SEROquel] 100 mg PO QPM 04/13/18 04/13/18 clonazePAM [Clonazepam] 0.5 mg PO 04/13/18 Albuterol Sulf [Ventolin Hfa 1 - 2 puffs INH Q4HR PRN #1 inhaler 05/16/18 Inhaler] Doxycycline Hyclate 100 mg PO BID #20 capsule 05/16/18 Hydrocodone Bit/Homatrop Me-Br 5 - 10 ml PO Q4HR PRN #120 ml 05/16/18 [Hydrocodone-Homatropine Syrup] Ondansetron Odt [Zofran] 4 mg TL Q6H PRN #10 tablet 05/16/18 predniSONE [Deltasone] 20 mg PO [id number] #21 tab 09/06/18 - Allergies Allergies/Adverse Reactions: Allergies Allergy/AdvReac Type Severity Reaction Status Date / Time azithromycin Allergy Severe Hives Verified 05/16/18 16:27 haloperidol Allergy Severe Anaphylaxis Verified 05/16/18 16:27 Penicillins Allergy Severe Anaphylaxis Verified 05/16/18 16:27 amoxicillin [Amoxicillin] Allergy Intermediate Rash Verified 05/16/18 16:27 grapefruit Allergy Intermediate Rash Verified 05/16/18 16:27 iodine Allergy Intermediate Rash Verified 05/16/18 16:27 Sulfa (Sulfonamide Allergy Intermediate Rash Verified 05/16/18 16:27 Antibiotics) haloperidol lactate * AdvReac Rash Verified 05/16/18 16:27 [From Haldol] - Social History Does the pt smoke?: Yes Smoking Status: Current every day smoker Does the pt drink ETOH?: No Does the pt have substance abuse?: No - Immunizations Immunizations are current?: No Immunizations: TDAP >10years/unknown - POLST Patient has POLST: No PD ED PE NORMAL - Vitals Vital signs reviewed: Yes - General General: Alert and oriented X 3, No acute distress - HEENT HEENT: PERRL, Pharynx benign - Neck Neck: Supple, no meningeal sign, No bony TTP - Cardiac Cardiac: RRR, No murmur - Respiratory Respiratory: Other (Slightly winded with audible wheezing at the bedside and very diminished breath sounds without focal findings.) - Abdomen Abdomen: Non tender - Extremities Extremities: No edema - Neuro Neuro: Alert and oriented X 3, Normal speech Results - Vitals Vitals: Vital Signs - 24 hr 05/16/18 05/16/18 05/16/18 16:10 16:31 16:58 Temperature 37.3 C Heart Rate 88 82 90 Respiratory 22 16 18 Rate Blood Pressure 136/77 H O2 Saturation 96 Oxygen O2 Source [] Room air O2 Source [] Room air O2 Source Room air - Rads (name of study) 2v chest Radiology: EMP read contemporaneously (NAD) PD MEDICAL DECISION MAKING - ED course ED course: 53-year-old woman presents with a combination of COPD exacerbation/asthma exacerbation. She was not feeling mesh much better after DuoNeb but her lungs were clear and this was followed by a double albuterol neb and also oral steroids and meds for her other symptoms, Zofran for the vomiting, Imodium for the diarrhea. - Sepsis Event Vital Signs: Vital Signs - 24 hr 05/16/18 05/16/18 05/16/18 16:10 16:31 16:58 Temperature 37.3 C Heart Rate 88 82 90 Respiratory 22 16 18 Rate Blood Pressure 136/77 H O2 Saturation 96 Oxygen O2 Source [] Room air O2 Source [] Room air O2 Source Room air Departure - Departure Disposition: 01 Home, Self Care Clinical Impression: Acute exacerbation of COPD with asthma Condition: Good Record reviewed to determine appropriate education?: Yes Instructions: Emphysema Dc Prescriptions: Albuterol Sulf [Ventolin Hfa Inhaler] 1 - 2 puffs INH Q4HR PRN #1 inhaler PRN Reason: Shortness Of Air/Wheezing Hydrocodone Bit/Homatrop Me-Br [Hydrocodone-Homatropine Syrup] 5 - 10 ml PO Q4HR PRN #120 ml PRN Reason: Cough Doxycycline Hyclate 100 mg PO BID #20 capsule Ondansetron Odt [Zofran] 4 mg TL Q6H PRN #10 tablet PRN Reason: Nausea / Vomiting predniSONE [Deltasone] 20 mg PO [id number] #21 tab Comments: Call your doctor to arrange a follow-up appointment, make the next available appointment. In the interim, return anytime if worse or if new symptoms develop. Your blood pressure was elevated today on check into the emergency department. This does not mean that you have hypertension, it is a common phenomenon to come to the emergency department and have elevated blood pressure. I recommend that you see your primary care physician within the week to have it rechecked when you are feeling better.
--- NOTE | 2018-05-16 16:41 | XRAY Report ---
Reason: dyspnea cough Procedure Date: 05/16/2018 Accession Number: [id number] / [id number] Procedure: XR - Chest 2 View X-Ray CPT Code: 55359 FULL RESULT: EXAM: CHEST RADIOGRAPHY EXAM DATE: 05/16/2018 04:30 PM. CLINICAL HISTORY: Dyspnea cough. COMPARISON: 04/13/2018. TECHNIQUE: 2 views. FINDINGS: Lungs/Pleura: Lung volumes mildly low, as before. Mild bibasilar bronchovascular crowding. No confluent consolidation. No interstitial abnormality. Pulmonary vascularity within normal limits. No pleural fluid or pneumothorax. Mediastinum: Heart and mediastinal contours are unremarkable. Other: Mild generalized thoracic kyphosis. Cholecystectomy clips. IMPRESSION: Lungs clear accounting for mildly low lung volumes. RADIA
[2018-05-16] MEDS ORDERED: ALBUTEROL NEB 2.5 MG/3 ML INH STA (16:47)
[2018-05-16 17:23] VITALS: BP 136/85
== END 2018-05-16 17:30 | disposition home or self-care (01) ==
LOC: EDUNIT# → EDSEX → ED 16:08
DX: J44.1 Chronic obstructive pulmonary disease with (acute) exacerbation (principal); E11.9 Type 2 diabetes mellitus without complications; R03.0 Elevated blood-pressure reading, without diagnosis of hypertension; F17.200 Nicotine dependence, unspecified, uncomplicated
CPT/HCPCS: 71046; 94640; 99283; 99284; A9270; J7512; Q0162

== ENCOUNTER 2018-05-17 12:17 | Outpatient (CLI) | payer MEDICARE, MEDICAID | END 2018-05-17 12:18 | disposition critical access hospital (66) | LOC: EMS 12:17 | PROVIDERS: ATTEND Surgery | DX: R56.9 Unspecified convulsions (principal) | CPT/HCPCS: A0425; A0429 ==

== ENCOUNTER 2018-05-17 12:39 | Emergency (ER) | payer MEDICARE, MEDICAID ==
[2018-05-17] MEDS ORDERED: LORazepam 2 MG/ML VIAL IVP STA (12:52)
[2018-05-17] MEDS ORDERED: IPRATROPIUM/ALBUTEROL 3 ML NEB INH STA (12:53)
--- NOTE | 2018-05-17 12:59 | ED Physician Documentation ---
PD HPI SEIZURE - Stated complaint Stated Complaint: SEIZURES - Chief complaint Chief Complaint: Neuro - History obtained from History obtained from: Patient, EMS - History of Present Illness Timing - onset: Today Witnessed: Witnessed Number of seizures: Other (1 seizure for 2 mins and then 2 seizures of approx 10 seconds. Recovered fully between each seizure. + urinary incontinence.) Description of seizure activity: Generalized, Tonic clonic Injury during seizure: None Pain level max: 5 Pain level now: 5 Associated symptoms: Headache (has a headache now, common after her seizures) History of seizures: Known seizure disorder Contributing factors: Other (states has been sick lately, seen here last night for shortness of breath. 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: None : None HEENT: None Psych: Depression, Schizophrenia, Post traumatic stress disorder Musculoskeletal: None Derm: None - Past Surgical History Past Surgical History: Yes General: Bowel surgery Ortho: Other /FOOD AND BEVERAGE OPERATIONS MANAGER: 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 HEENT: Cataracts - Present Medications Home Medications: Ambulatory Orders Medication Instructions Recorded Confirmed Divalproex ER [Depakote ER] 250 mg PO BID 12/25/16 05/17/18 Divalproex ER [Depakote ER] 500 mg PO BID 12/25/16 05/17/18 Sucralfate 1 tab PO DAILY 02/15/18 05/17/18 clonazePAM [Clonazepam] 0.5 mg PO DAILY 04/13/18 05/17/18 Albuterol Sulf [Ventolin Hfa 1 - 2 puffs INH Q4HR PRN #1 inhaler 05/16/18 Inhaler] Ondansetron Odt [Zofran] 4 mg TL Q6H PRN #10 tablet 05/16/18 OLANZapine [Zyprexa Zydis] 10 mg PO BID 05/17/18 05/17/18 - Allergies Allergies/Adverse Reactions: Allergies Allergy/AdvReac Type Severity Reaction Status Date / Time azithromycin Allergy Severe Hives Verified 05/16/18 16:27 haloperidol Allergy Severe Anaphylaxis Verified 05/16/18 16:27 Penicillins Allergy Severe Anaphylaxis Verified 05/16/18 16:27 amoxicillin [Amoxicillin] Allergy Intermediate Rash Verified 05/16/18 16:27 grapefruit Allergy Intermediate Rash Verified 05/16/18 16:27 iodine Allergy Intermediate Rash Verified 05/16/18 16:27 Sulfa (Sulfonamide Allergy Intermediate Rash Verified 05/16/18 16:27 Antibiotics) haloperidol lactate * AdvReac Rash Verified 05/16/18 16:27 [From Haldol] - Social History Does the pt smoke?: Yes Smoking Status: Current every day smoker Does the pt drink ETOH?: No Does the pt have substance abuse?: No - Immunizations Immunizations are current?: No Immunizations: TDAP >10years/unknown - POLST Patient has POLST: No PD ED PE NORMAL - Vitals Vital signs reviewed: Yes - General General: Alert and oriented X 3, No acute distress, Well developed/nourished - HEENT HEENT: Atraumatic, PERRL, Ears normal, Moist mucous membranes - Neck Neck: Supple, no meningeal sign, No bony TTP - Cardiac Cardiac: RRR, No murmur, Strong equal pulses - Respiratory Respiratory: No respiratory distress, Other (wheezing B) - Abdomen Abdomen: Soft, Non tender, Non distended - Back Back: No spinal TTP - Derm Derm: Warm and dry - Extremities Extremities: No calf tenderness / cord - Neuro Neuro: Alert and oriented X 3 - Psych Psych: Normal mood, Normal affect Results - Vitals Vitals: Vital Signs - 24 hr 05/17/18 05/17/18 05/17/18 12:46 14:10 14:30 Temperature 36.4 C L Heart Rate 95 87 84 Respiratory 18 16 19 Rate Blood Pressure 140/81 H 143/70 H O2 Saturation 97 95 05/17/18 14:46 Temperature Heart Rate 94 Respiratory 22 Rate Blood Pressure 153/92 H O2 Saturation 93 Oxygen O2 Source [With Activity] Room air O2 Source [Without Activity] Room air O2 Source Room air - Labs Labs: Laboratory Tests 05/17/18 05/17/18 05/17/18 13:16 13:16 13:16 WBC 19.6 H RBC 4.09 L Hgb 12.1 Hct 36.9 L MCV 90.2 MCH 29.5 MCHC 32.7 RDW 14.8 Plt Count 300 MPV 9.1 Neut # (Auto) 11.1 H Lymph # (Auto) 5.6 H [place] # (Auto) 2.7 H Eos # (Auto) 0.0 Baso # (Auto) 0.1 Absolute Nucleated RBC 0.01 Nucleated RBC % 0.0 Manual Slide Review Indicated RBC Morph Micro Appear 1+ ANISOCYTOSIS Sodium 144 Potassium 3.5 Chloride 111 Carbon Dioxide 23 Anion Gap 10.0 BUN 10 Creatinine 0.8 Estimated GFR (MDRD) 75 L Glucose 107 H Calcium 8.7 Phosphorus 2.2 L Magnesium 2.0 Total Bilirubin 0.2 AST 18 ALT 10 Alkaline Phosphatase 56 Total Protein 6.5 L Albumin 3.1 L Globulin 3.4 Albumin/Globulin Ratio 0.9 L Lipase 20 L Urine Color Urine Clarity Urine pH Ur Specific [place] Urine Protein Urine Glucose (UA) Urine Ketones Urine Occult Blood Urine Nitrite Urine Bilirubin Urine Urobilinogen Ur Leukocyte Esterase Ur Microscopic Review Urine Culture Comments Last Dose Date UNKNOWN Last Dose Time UN KNOWN Urine Opiates Screen Ur Oxycodone Screen Urine Methadone Screen Ur Propoxyphene Screen Ur Barbiturates Screen Valproic Acid 91.0 Ur Tricyclics Screen Ur Phencyclidine Scrn Ur Amphetamine Screen U Methamphetamines Scrn U Benzodiazepines Scrn Urine Cocaine Screen U Cannabinoids Screen 05/17/18 13:30 WBC RBC Hgb Hct MCV MCH MCHC RDW Plt Count MPV Neut # (Auto) Lymph # (Auto) [place] # (Auto) Eos # (Auto) Baso # (Auto) Absolute Nucleated RBC Nucleated RBC % Manual Slide Review RBC Morph Micro Appear Sodium Potassium Chloride Carbon Dioxide Anion Gap BUN Creatinine Estimated GFR (MDRD) Glucose Calcium Phosphorus Magnesium Total Bilirubin AST ALT Alkaline Phosphatase Total Protein Albumin Globulin Albumin/Globulin Ratio Lipase Urine Color YELLOW Urine Clarity CLEAR Urine pH 6.5 Ur Specific [place] <=1.005 Urine Protein NEGATIVE Urine Glucose (UA) NEGATIVE Urine Ketones NEGATIVE Urine Occult Blood NEGATIVE Urine Nitrite NEGATIVE Urine Bilirubin NEGATIVE Urine Urobilinogen 0.2 (NORMAL) Ur Leukocyte Esterase NEGATIVE Ur Microscopic Review NOT INDICATED Urine Culture Comments NOT INDICATED Last Dose Date Last Dose Time Urine Opiates Screen POSITIVE H Ur Oxycodone Screen NEGATIVE Urine Methadone Screen NEGATIVE Ur Propoxyphene Screen NEGATIVE Ur Barbiturates Screen NEGATIVE Valproic Acid Ur Tricyclics Screen NEGATIVE Ur Phencyclidine Scrn NEGATIVE Ur Amphetamine Screen NEGATIVE U Methamphetamines Scrn NEGATIVE U Benzodiazepines Scrn NEGATIVE Urine Cocaine Screen NEGATIVE U Cannabinoids Screen NEGATIVE PD MEDICAL DECISION MAKING - ED course Complexity details: reviewed old records, reviewed results, re-evaluated patient , considered differential, d/w patient ED course: Patient is a 53-year-old female with a recurrent seizure today. Her Depakote levels are therapeutic. This is her first seizure in approximately a year. Was given a dose of Ativan here. No further seizure activity. She does have an upper respiratory infection was being started on doxycycline but has not started it yet. Therefore a dose was given today. She states that her medications will be delivered this afternoon by the pharmacy. We will continue supportive care and follow-up with her doctor. Patient counseled regarding signs and symptoms for which I believe and urgent re-evaluation would be necessary. Patient with good understanding of and agreement to plan and is comfortable going home at this time This document was made in part using voice recognition software. While efforts are made to proofread this document, sound alike and grammatical errors may occur. - Sepsis Event Vital Signs: Vital Signs - 24 hr 05/17/18 05/17/18 05/17/18 12:46 14:10 14:30 Temperature 36.4 C L Heart Rate 95 87 84 Respiratory 18 16 19 Rate Blood Pressure 140/81 H 143/70 H O2 Saturation 97 95 05/17/18 14:46 Temperature Heart Rate 94 Respiratory 22 Rate Blood Pressure 153/92 H O2 Saturation 93 Oxygen O2 Source [With Activity] Room air O2 Source [Without Activity] Room air O2 Source Room air Departure - Departure Disposition: 01 Home, Self Care Clinical Impression: Recurrent seizures Condition: Good Instructions: ED Seizure Recurrent Follow-Up: Alethea Bolanos ARNP [Primary Care Provider] - Within 1 week Comments: Continue your medications at home. Return if you worsen. Your infection is likely causing your increase in seizures.
[2018-05-17 13:20] LABS: BASOPHILS # (AUTO) 0.1 10^3/uL (0.0-0.1); BASOPHILS % (AUTO) 0.7 %; EOSINOPHILS % (AUTO) 0.2 %; HGB - HEMOGLOBIN 12.1 g/dL (12.0-16.0); LYMPHOCYTES # (AUTO) 5.6 10^3/uL (1.5-3.5); LYMPHOCYTES % (AUTO) 28.8 %; MEAN CORPUSCULAR HEMOGLOBIN 29.5 pg (27.0-31.0); MEAN CORPUSCULAR HGB CONC 32.7 g/dL (32.0-36.0); MEAN CORPUSCULAR VOLUME 90.2 fL (81.0-99.0); MEAN PLATELET VOLUME 9.1 fL (7.9-10.8); MONOCYTES # (AUTO) 2.7 10^3/uL (0.0-1.0); MONOCYTES % (AUTO) 13.8 %; NEUTROPHILS # (AUTO) 11.1 10^3/uL (1.5-6.6); NEUTROPHILS % (AUTO) 56.5 %; PLT - PLATELET COUNT 300 10^3/uL (130-450); RED BLOOD COUNT 4.09 10^6/uL (4.20-5.40); RED CELL DISTRIBUTION WIDTH 14.8 % (12.0-15.0); WHITE BLOOD COUNT 19.6 x10^3/uL (4.8-10.8)
[2018-05-17 13:38] LABS: ALBUMIN 3.1 g/dL (3.2-5.5); ALBUMIN/GLOBULIN RATIO 0.9 (1.0-2.2); BILIRUBIN,TOTAL 0.2 mg/dL (0.2-1.0); CALCIUM 8.7 mg/dL (8.5-10.3); CREATININE 0.8 mg/dL (0.4-1.0); PHOSPHORUS 2.2 mg/dL (2.5-4.6); TOTAL PROTEIN 6.5 g/dL (6.7-8.2)
[2018-05-17 13:40] LABS: MUDS CUTOFF CONCENTRATIONS CUTOFF CONC BELOW:
[2018-05-17 13:45] LABS: BILIRUBIN,URINE NEGATIVE (NEGATIVE); GLUCOSE, URINE (UA) NEGATIVE (NEGATIVE); KETONES,URINE (UA) NEGATIVE (NEGATIVE); LEUKOCYTE ESTERASE, URINE NEGATIVE (NEGATIVE); NITRITE,URINE NEGATIVE (NEGATIVE); OCCULT BLOOD,URINE NEGATIVE (NEGATIVE); PH,URINE 6.5 PH (5.0-7.5); PROTEIN,URINE NEGATIVE (NEGATIVE); UROBILINOGEN,URINE 0.2 (NORMAL) E.U./dL (NORMAL)
[2018-05-17 13:46] LABS: RBC MORPHOLOGY (MULTIPLE) 1+ ANISOCYTOSIS (NORMAL)
[2018-05-17 13:47] LABS: CLARITY,URINE CLEAR (CLEAR)
[2018-05-17] MEDS ORDERED: IBUPROFEN 400 MG TABLET PO STA (13:56)
[2018-05-17 14:05] LABS: AMPHETAMINE SCREEN,URINE NEGATIVE (NEGATIVE); BENZODIAZEPINES SCREEN, URINE NEGATIVE (NEGATIVE); COCAINE SCREEN URINE NEGATIVE (NEGATIVE); METHADONE SCREEN, URINE NEGATIVE (NEGATIVE); METHAMPHETAMINES SCREEN, URINE NEGATIVE (NEGATIVE); OPIATE SCREEN, URINE POSITIVE (NEGATIVE); OXYCODONE SCREEN, URINE NEGATIVE (NEGATIVE); PROPOXYPHENE SCREEN, URINE NEGATIVE (NEGATIVE); TRICYCLIC ANTIDEPRESSANT,URINE NEGATIVE (NEGATIVE)
[2018-05-17] MEDS ORDERED: DOXYCYCLINE 100 MG TABLET PO STA (14:18)
[2018-05-17] MEDS ORDERED: ACETAMINOPHEN 325 MG TABLET PO STA (14:24)
[2018-05-17 14:47] VITALS: BP 153/92
== END 2018-05-17 15:38 | disposition home or self-care (01) ==
LOC: EDUNIT# → ED 12:39
DX: G40.909 Epilepsy, unspecified, not intractable, without status epilepticus (principal); E11.9 Type 2 diabetes mellitus without complications; J06.9 Acute upper respiratory infection, unspecified; F17.200 Nicotine dependence, unspecified, uncomplicated; J44.9 Chronic obstructive pulmonary disease, unspecified; Z79.51 Long term (current) use of inhaled steroids
CPT/HCPCS: 36415; 51701; 80053; 80164; 81003; 83690; 83735; 84100; 85025; 93005; 94640; 96374; 99284; 99285; A9270; J2060; 80306; 81001; 87086

== ENCOUNTER 2018-05-21 18:43 | Emergency (ER) | payer MEDICARE, MEDICAID ==
[2018-05-21 19:34] LABS: MUDS CUTOFF CONCENTRATIONS CUTOFF CONC BELOW:
[2018-05-21 19:40] LABS: BILIRUBIN,URINE NEGATIVE (NEGATIVE); GLUCOSE, URINE (UA) NEGATIVE (NEGATIVE); KETONES,URINE (UA) NEGATIVE (NEGATIVE); LEUKOCYTE ESTERASE, URINE NEGATIVE (NEGATIVE); NITRITE,URINE NEGATIVE (NEGATIVE); OCCULT BLOOD,URINE NEGATIVE (NEGATIVE); PH,URINE 6.5 PH (5.0-7.5); PROTEIN,URINE NEGATIVE (NEGATIVE); UROBILINOGEN,URINE 0.2 (NORMAL) E.U./dL (NORMAL)
[2018-05-21 19:46] LABS: BASOPHILS # (AUTO) 0.1 10^3/uL (0.0-0.1); HGB - HEMOGLOBIN 12.6 g/dL (12.0-16.0); LYMPHOCYTES # (AUTO) 2.8 10^3/uL (1.5-3.5); LYMPHOCYTES % (AUTO) 21.2 %; MEAN CORPUSCULAR HEMOGLOBIN 29.5 pg (27.0-31.0); MEAN CORPUSCULAR HGB CONC 33.3 g/dL (32.0-36.0); MEAN CORPUSCULAR VOLUME 88.6 fL (81.0-99.0); MEAN PLATELET VOLUME 8.9 fL (7.9-10.8); MONOCYTES # (AUTO) 1.5 10^3/uL (0.0-1.0); MONOCYTES % (AUTO) 11.8 %; NEUTROPHILS # (AUTO) 8.7 10^3/uL (1.5-6.6); PLT - PLATELET COUNT 354 10^3/uL (130-450); RED BLOOD COUNT 4.28 10^6/uL (4.20-5.40); RED CELL DISTRIBUTION WIDTH 14.5 % (12.0-15.0); WHITE BLOOD COUNT 13.1 x10^3/uL (4.8-10.8)
[2018-05-21 19:57] LABS: AMPHETAMINE SCREEN,URINE NEGATIVE (NEGATIVE); BENZODIAZEPINES SCREEN, URINE NEGATIVE (NEGATIVE); CLARITY,URINE CLEAR (CLEAR); COCAINE SCREEN URINE NEGATIVE (NEGATIVE); METHADONE SCREEN, URINE NEGATIVE (NEGATIVE); METHAMPHETAMINES SCREEN, URINE NEGATIVE (NEGATIVE); OPIATE SCREEN, URINE NEGATIVE (NEGATIVE); OXYCODONE SCREEN, URINE NEGATIVE (NEGATIVE); PROPOXYPHENE SCREEN, URINE NEGATIVE (NEGATIVE); TRICYCLIC ANTIDEPRESSANT,URINE NEGATIVE (NEGATIVE)
[2018-05-21 19:57] LABS: BUN - BLOOD UREA NITROGEN 19 mg/dL (6-20); CALCIUM 8.9 mg/dL (8.5-10.3); CARBON DIOXIDE - CO2 26 mmol/L (21-32); CHLORIDE 106 mmol/L (101-111); CREATININE 0.7 mg/dL (0.4-1.0); GFR - MDRD 87 (>89); GLUCOSE 104 mg/dL (70-100); SODIUM 141 mmol/L (135-145)
--- NOTE | 2018-05-21 20:00 | ED Physician Documentation ---
PD HPI MHE - Stated complaint Stated Complaint: MHE/SI - Chief complaint Chief Complaint: MHE - History obtained from History obtained from: Patient - History of Present Illness Primary symptom: Suicidal ideation (She has suicidal ideation and cut her right wrist with a razor today. She is up-to-date on tetanus. She is having a lot of stress over her living situation her roommates. She says her director of casework department arranged for respite bed for her and she just needs medical clearance. It is unclear from the patient's recollection where that respite bed is. [facility].) Review of Systems Constitutional: denies: Fever, Chills Cardiac: denies: Chest pain / pressure, Palpitations Respiratory: denies: Dyspnea, Cough GI: denies: Abdominal Pain, Nausea, Vomiting PD PAST MEDICAL HISTORY - Past Medical History Past Medical History: Yes Cardiovascular: Angina, Other Respiratory: COPD, Pneumonia Neuro: Seizure disorder Endocrine/Autoimmune: Type 2 diabetes GI: GERD, Hiatal hernia MEDICAL TECHNOLOGIST BLOOD BANK: None : None HEENT: None Psych: Depression, Schizophrenia, Post traumatic stress disorder Musculoskeletal: None Derm: None - Past Surgical History Past Surgical History: Yes General: Bowel surgery Ortho: Other /MEDICAL TECHNOLOGIST BLOOD BANK: 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 HEENT: Cataracts - Present Medications Home Medications: Ambulatory Orders Medication Instructions Recorded Confirmed Divalproex ER [Depakote ER] 250 mg PO BID 12/25/16 05/17/18 Divalproex ER [Depakote ER] 500 mg PO BID 12/25/16 05/17/18 Sucralfate 1 tab PO DAILY 02/15/18 05/17/18 clonazePAM [Clonazepam] 0.5 mg PO DAILY 04/13/18 05/17/18 Albuterol Sulf [Ventolin Hfa 1 - 2 puffs INH Q4HR PRN #1 inhaler 05/16/18 05/17/18 Inhaler] Ondansetron Odt [Zofran] 4 mg TL Q6H PRN #10 tablet 05/16/18 OLANZapine [Zyprexa Zydis] 10 mg PO BID 05/17/18 05/17/18 - Allergies Allergies/Adverse Reactions: Allergies Allergy/AdvReac Type Severity Reaction Status Date / Time azithromycin Allergy Severe Hives Verified 05/21/18 19:01 haloperidol Allergy Severe Anaphylaxis Verified 05/21/18 19:01 Penicillins Allergy Severe Anaphylaxis Verified 05/21/18 19:01 amoxicillin [Amoxicillin] Allergy Intermediate Rash Verified 05/21/18 19:01 grapefruit Allergy Intermediate Rash Verified 05/21/18 19:01 iodine Allergy Intermediate Rash Verified 05/21/18 19:01 Sulfa (Sulfonamide Allergy Intermediate Rash Verified 05/21/18 19:01 Antibiotics) haloperidol lactate * AdvReac Rash Verified 05/21/18 19:01 [From Haldol] - Social History Does the pt smoke?: Yes Smoking Status: Current every day smoker Does the pt drink ETOH?: No Does the pt have substance abuse?: No - Immunizations Immunizations are current?: No Immunizations: TDAP >10years/unknown - POLST Patient has POLST: No PD ED PE NORMAL - Vitals Vital signs reviewed: Yes - General General: Alert and oriented X 3, No acute distress - HEENT HEENT: PERRL, EOMI - Neck Neck: Supple, no meningeal sign, No bony TTP - Cardiac Cardiac: RRR, No murmur - Respiratory Respiratory: No respiratory distress, Other (Wheezy but she says is not more short of breath than normal and declines nebulized treatment.) - Abdomen Abdomen: Soft, Non tender - Back Back: No CVA TTP - Derm Derm: Normal color, Warm and dry, Other (She has an abrasion kind of a scrape over the wrist flexor crease, not deep enough to involve deep structures.) - Extremities Extremities: No edema, No calf tenderness / cord - Neuro Neuro: Alert and oriented X 3, Normal speech - Psych Psych: Normal mood, Normal affect Results - Vitals Vitals: Vital Signs - 24 hr 05/21/18 05/22/18 05/22/18 18:53 01:13 05:56 Temperature 36.8 C 36.3 C L Heart Rate 98 86 84 Respiratory 18 20 Rate Blood Pressure 116/89 H 120/89 H 128/75 O2 Saturation 97 100 94 Oxygen O2 Source [With Activity] Room air O2 Source [Without Activity] Room air O2 Source Room air - Labs Labs: Laboratory Tests 05/21/18 05/21/18 05/21/18 19:20 19:40 19:40 WBC 13.1 H RBC 4.28 Hgb 12.6 Hct 37.9 MCV 88.6 MCH 29.5 MCHC 33.3 RDW 14.5 Plt Count 354 MPV 8.9 Neut # (Auto) 8.7 H Lymph # (Auto) 2.8 Rhea # (Auto) 1.5 H Eos # (Auto) 0.0 Baso # (Auto) 0.1 Absolute Nucleated RBC 0.02 Nucleated RBC % 0.2 Sodium 141 Potassium 4.1 Chloride 106 Carbon Dioxide 26 Anion Gap 9.0 BUN 19 Creatinine 0.7 Estimated GFR (MDRD) 87 L Glucose 104 H Calcium 8.9 Urine Color YELLOW Urine Clarity CLEAR Urine pH 6.5 Ur Specific [place] 1.015 Urine Protein NEGATIVE Urine Glucose (UA) NEGATIVE Urine Ketones NEGATIVE Urine Occult Blood NEGATIVE Urine Nitrite NEGATIVE Urine Bilirubin NEGATIVE Urine Urobilinogen 0.2 (NORMAL) Ur Leukocyte Esterase NEGATIVE Ur Microscopic Review NOT INDICATED Urine Culture Comments NOT INDICATED Last Dose Date Last Dose Time Salicylates Urine Opiates Screen NEGATIVE Ur Oxycodone Screen NEGATIVE Urine Methadone Screen NEGATIVE Ur Propoxyphene Screen NEGATIVE Acetaminophen Ur Barbiturates Screen NEGATIVE Valproic Acid Ur Tricyclics Screen NEGATIVE Ur Phencyclidine Scrn NEGATIVE Ur Amphetamine Screen NEGATIVE U Methamphetamines Scrn NEGATIVE U Benzodiazepines Scrn NEGATIVE Urine Cocaine Screen NEGATIVE U Cannabinoids Screen NEGATIVE Ethyl Alcohol < 5.0 05/21/18 19:40 WBC RBC Hgb Hct MCV MCH MCHC RDW Plt Count MPV Neut # (Auto) Lymph # (Auto) Rhea # (Auto) Eos # (Auto) Baso # (Auto) Absolute Nucleated RBC Nucleated RBC % Sodium Potassium Chloride Carbon Dioxide Anion Gap BUN Creatinine Estimated GFR (MDRD) Glucose Calcium Urine Color Urine Clarity Urine pH Ur Specific [place] Urine Protein Urine Glucose (UA) Urine Ketones Urine Occult Blood Urine Nitrite Urine Bilirubin Urine Urobilinogen Ur Leukocyte Esterase Ur Microscopic Review Urine Culture Comments Last Dose Date unknown Last Dose Time unknown Salicylates < 6.0 Urine Opiates Screen Ur Oxycodone Screen Urine Methadone Screen Ur Propoxyphene Screen Acetaminophen < 10 L Ur Barbiturates Screen Valproic Acid 44.4 Ur Tricyclics Screen Ur Phencyclidine Scrn Ur Amphetamine Screen U Methamphetamines Scrn U Benzodiazepines Scrn Urine Cocaine Screen U Cannabinoids Screen Ethyl Alcohol PD MEDICAL DECISION MAKING - ED course ED course: I was unable to figure out in the middle of the night which respite facility she was to go to so she boarded for social work evaluation in the morning and she is being discharged to a respite facility per her request. - Sepsis Event Vital Signs: Vital Signs - 24 hr 05/21/18 05/22/18 05/22/18 18:53 01:13 05:56 Temperature 36.8 C 36.3 C L Heart Rate 98 86 84 Respiratory 18 20 Rate Blood Pressure 116/89 H 120/89 H 128/75 O2 Saturation 97 100 94 Oxygen O2 Source [With Activity] Room air O2 Source [Without Activity] Room air O2 Source Room air Departure - Departure Disposition: 01 Home, Self Care Clinical Impression: Anxiety state, Depressive disorder Abrasion of forearm Qualifiers: Encounter type: initial encounter Laterality: right Qualified Code(s): S50.811A - Abrasion of right forearm, initial encounter Condition: Stable Record reviewed to determine appropriate education?: Yes Instructions: ED Depression
[2018-05-21 20:05] LABS: SALICYLATE < 6.0 mg/dL; VALPROIC ACID (DEPAKOTE) 44.4 ug/mL
[2018-05-21 20:08] LABS: ACETAMINOPHEN < 10 ug/mL (10-30)
[2018-05-22 05:56] VITALS: BP 128/75
[2018-05-22] MEDS ORDERED: ACETAMINOPHEN 325 MG TABLET PO STA (15:01)
== END 2018-05-22 16:05 | disposition home or self-care (01) ==
LOC: ED 18:43
DX: F41.9 Anxiety disorder, unspecified (principal); F32.9 Major depressive disorder, single episode, unspecified; S60.811A Abrasion of right wrist, initial encounter; X78.8XXA Intentional self-harm by other sharp object, initial encounter; E11.9 Type 2 diabetes mellitus without complications; F17.200 Nicotine dependence, unspecified, uncomplicated
CPT/HCPCS: 36415; 80048; 80164; 81003; 85025; 99283; A9270; 80306; 80307; 80320; 80329; 81001; 87086

== ENCOUNTER 2018-06-05 09:10 | Outpatient (CLI) | payer MEDICARE, MEDICAID ==
[2018-06-05 13:22] LABS: BASOPHILS # (AUTO) 0.1 10^3/uL (0.0-0.1); BASOPHILS % (AUTO) 0.8 %; EOSINOPHILS # (AUTO) 0.4 10^3/uL (0.0-0.7); EOSINOPHILS % (AUTO) 3.2 %; HGB - HEMOGLOBIN 13.4 g/dL (12.0-16.0); LYMPHOCYTES # (AUTO) 4.5 10^3/uL (1.5-3.5); LYMPHOCYTES % (AUTO) 38.8 %; MEAN CORPUSCULAR HEMOGLOBIN 29.4 pg (27.0-31.0); MEAN CORPUSCULAR HGB CONC 32.6 g/dL (32.0-36.0); MEAN PLATELET VOLUME 10.6 fL (7.9-10.8); MONOCYTES # (AUTO) 1.7 10^3/uL (0.0-1.0); MONOCYTES % (AUTO) 14.3 %; NEUTROPHILS # (AUTO) 4.9 10^3/uL (1.5-6.6); NEUTROPHILS % (AUTO) 42.9 %; PLT - PLATELET COUNT 293 10^3/uL (130-450); RED BLOOD COUNT 4.57 10^6/uL (4.20-5.40); RED CELL DISTRIBUTION WIDTH 15.1 % (12.0-15.0); WHITE BLOOD COUNT 11.5 x10^3/uL (4.8-10.8)
[2018-06-05 13:29] LABS: ALBUMIN 3.4 g/dL (3.2-5.5); ALKALINE PHOSPHATASE 61 IU/L (42-121); ALT ALANINE AMINOTRANSFERASE 20 IU/L (10-60); AST ASPARTATE AMINOTRANSFERASE 30 IU/L (10-42); BILIRUBIN,TOTAL 0.5 mg/dL (0.2-1.0); BUN - BLOOD UREA NITROGEN 18 mg/dL (6-20); CALCIUM 8.8 mg/dL (8.5-10.3); CARBON DIOXIDE - CO2 24 mmol/L (21-32); CHLORIDE 109 mmol/L (101-111); CHOL/HDL RATIO 3.5 (<4.4); CHOLESTEROL 220 mg/dL; CREATININE 0.7 mg/dL (0.4-1.0); GFR - MDRD 87 (>89); GLUCOSE 92 mg/dL (70-100); HDL CHOLESTEROL 63 mg/dL; LDL CHOLESTEROL,CALCULATED 129 mg/dL; SODIUM 141 mmol/L (135-145); TOTAL PROTEIN 6.9 g/dL (6.7-8.2); VALPROIC ACID (DEPAKOTE) 67.2 ug/mL; VLDL CHOLESTEROL 28 mg/dL
[2018-06-05 13:49] LABS: PLATELET ESTIMATE, MANUAL NORMAL (130-450,000) (NORMAL)
[2018-06-05 13:56] LABS: HB2 TOTAL 14.1 g/dL; HEMOGLOBIN A1C 0.57 g/dL; HEMOGLOBIN A1C % 5.9 % (4.6-6.2)
== END 2018-06-05 09:11 | disposition home or self-care (01) ==
LOC: LAB.WCP 09:10
PROVIDERS: ATTEND Family Medicine
DX: R73.01 Impaired fasting glucose (principal); F31.70 Bipolar disorder, currently in remission, most recent episode unspecified; G40.909 Epilepsy, unspecified, not intractable, without status epilepticus
CPT/HCPCS: 36415; 80053; 80061; 80164; 83036; 83721; 84443; 85025

== ENCOUNTER 2018-06-06 16:23 | Outpatient (CLI) | payer MEDICARE, MEDICAID | END 2018-06-06 16:24 | disposition critical access hospital (66) | LOC: EMS 16:23 | PROVIDERS: ATTEND Surgery | DX: R07.9 Chest pain, unspecified (principal); R05 Cough; R51 Headache; R06.00 Dyspnea, unspecified | CPT/HCPCS: A0425; A0429 ==

== ENCOUNTER 2018-06-06 16:45 | Emergency (ER) | payer MEDICARE, MEDICAID ==
[2018-06-06] MEDS ORDERED: BENZONATATE 100 MG CAPSULE PO STA (17:12)
[2018-06-06] MEDS ORDERED: ONDANSETRON ODT 4 MG TABLET TL STA (17:12)
[2018-06-06] MEDS ORDERED: guaiFENesin/DEXTROMETHORPHAN 10 ML UDC PO STA (17:12)
[2018-06-06] MEDS ORDERED: ALBUTEROL NEB 2.5 MG/3 ML INH STA (17:12)
[2018-06-06] MEDS ORDERED: DEXAMETHASONE 10 MG/ML VIAL PO STA (17:12)
[2018-06-06] MEDS ORDERED: ACETAMINOPHEN 325 MG TABLET PO STA (17:12)
--- NOTE | 2018-06-06 17:14 | ED Physician Documentation ---
History of Present Illness - Stated complaint Stated Complaint: CP/ERICKSON - Chief complaint Chief Complaint: Resp - Additonal information Additional information: hx from pt 53 y/o f hx COPD sick for several days low grade fever, ERICKSON, myalgias, productive cough, wheezing, NVD room mate is sick no travel Review of Systems Constitutional: reports: Fever, Myalgias, Fatigue Cardiac: reports: Chest pain / pressure (with cough) Respiratory: reports: Dyspnea, Cough, Wheezing GI: reports: Nausea, Vomiting, Diarrhea. denies: Abdominal Pain Neurologic: reports: Headache Endocrine: denies: Easy bruising / bleeding Immunocompromised: denies: Immunocompromised PD PAST MEDICAL HISTORY - Past Medical History Past Medical History: Yes Cardiovascular: Angina, Other Respiratory: COPD, Pneumonia Neuro: Seizure disorder Endocrine/Autoimmune: Type 2 diabetes GI: GERD, Hiatal hernia FLORAL DESIGNER: None : None HEENT: None Psych: Depression, Schizophrenia, Post traumatic stress disorder Musculoskeletal: None Derm: None - Past Surgical History Past Surgical History: Yes General: Bowel surgery Ortho: Other /FLORAL DESIGNER: 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 HEENT: Cataracts - Present Medications Home Medications: Ambulatory Orders Medication Instructions Recorded Confirmed Divalproex ER [Depakote ER] 250 mg PO BID 12/25/16 05/17/18 Divalproex ER [Depakote ER] 500 mg PO BID 12/25/16 05/17/18 Sucralfate 1 tab PO DAILY 02/15/18 05/17/18 clonazePAM [Clonazepam] 0.5 mg PO DAILY 04/13/18 05/17/18 Albuterol Sulf [Ventolin Hfa 1 - 2 puffs INH Q4HR PRN #1 inhaler 05/16/18 05/17/18 Inhaler] Ondansetron Odt [Zofran] 4 mg TL Q6H PRN #10 tablet 05/16/18 OLANZapine [Zyprexa Zydis] 10 mg PO BID 05/17/18 05/17/18 Benzonatate [Tessalon] 100 mg PO TID PRN #20 capsule 06/06/18 Doxycycline Hyclate 100 mg PO BID #20 capsule 06/06/18 guaiFENesin/DEXTROMETHORPHAN 10 ml PO Q6H PRN #120 ml 06/06/18 [Robitussin Dm] predniSONE [Deltasone] 60 mg PO DAILY 5 Days tablet 06/06/18 - Allergies Allergies/Adverse Reactions: Allergies Allergy/AdvReac Type Severity Reaction Status Date / Time azithromycin Allergy Severe Hives Verified 06/06/18 16:54 haloperidol Allergy Severe Anaphylaxis Verified 06/06/18 16:54 Penicillins Allergy Severe Anaphylaxis Verified 06/06/18 16:54 amoxicillin [Amoxicillin] Allergy Intermediate Rash Verified 06/06/18 16:54 grapefruit Allergy Intermediate Rash Verified 06/06/18 16:54 iodine Allergy Intermediate Rash Verified 06/06/18 16:54 Sulfa (Sulfonamide Allergy Intermediate Rash Verified 06/06/18 16:54 Antibiotics) haloperidol lactate * AdvReac Rash Verified 06/06/18 16:54 [From Haldol] - Social History Does the pt smoke?: Yes Smoking Status: Current every day smoker Does the pt drink ETOH?: No Does the pt have substance abuse?: No - Immunizations Immunizations are current?: No Immunizations: TDAP >10years/unknown - POLST Patient has POLST: No PD ED PE NORMAL - Vitals Vital signs reviewed: Yes - General General: Alert and oriented X 3 - HEENT HEENT: PERRL (not photophobic), Moist mucous membranes - Neck Neck: Supple, no meningeal sign - Cardiac Cardiac: RRR - Respiratory Respiratory: No respiratory distress, Other (mikaela wheeze) - Abdomen Abdomen: Soft, Non tender - Derm Derm: Normal color - Extremities Extremities: Other (mild mikaela symm edema) - Neuro Neuro: Alert and oriented X 3 Results - Vitals Vitals: Vital Signs - 24 hr 06/06/18 06/06/18 06/06/18 16:50 17:36 17:48 Temperature 37.2 C Heart Rate 92 83 85 Respiratory 18 18 20 Rate Blood Pressure 139/90 H 132/85 H O2 Saturation 95 95 06/06/18 18:35 Temperature 37.2 C Heart Rate 88 Respiratory 20 Rate Blood Pressure 119/58 L O2 Saturation 95 Oxygen O2 Source [] Room air O2 Source [] Room air O2 Source Room air - Labs Labs: Laboratory Tests 06/06/18 17:10 Influenza A (Rapid) Negative Influenza B (Rapid) Negative - Rads (name of study) CXR Radiology: See rad report (no pna) PD MEDICAL DECISION MAKING - ED course ED course: no pna neg flu likely bronchitis with COPD exac but bad COPD and smoker and hx resp failure will tx with doxy also steroids X 5 days and home mali q4h and fup PMD tomorrow for a recheck still wheezing after triple neb, I suggested more but she declined, sat 93%, and she actually ran out the door to catch the last bus home - Sepsis Event Vital Signs: Vital Signs - 24 hr 06/06/18 06/06/18 06/06/18 16:50 17:36 17:48 Temperature 37.2 C Heart Rate 92 83 85 Respiratory 18 18 20 Rate Blood Pressure 139/90 H 132/85 H O2 Saturation 95 95 06/06/18 18:35 Temperature 37.2 C Heart Rate 88 Respiratory 20 Rate Blood Pressure 119/58 L O2 Saturation 95 Oxygen O2 Source [] Room air O2 Source [] Room air O2 Source Room air Departure - Departure Disposition: 01 Home, Self Care Clinical Impression: Bronchitis, COPD exacerbation Condition: Good Instructions: ED Bronchitis Asthmatic Follow-Up: Alethea Bolanos ARNP [Primary Care Provider] - (tomorrow for a recheck before the weekend) Prescriptions: Benzonatate [Tessalon] 100 mg PO TID PRN #20 capsule PRN Reason: to ease cough Doxycycline Hyclate 100 mg PO BID #20 capsule guaiFENesin/DEXTROMETHORPHAN [Robitussin Dm] 10 ml PO Q6H PRN #120 ml PRN Reason: Cough predniSONE [Deltasone] 60 mg PO DAILY 5 Days tablet Comments: Do not take your carafate while on the doxycycline - they interact Take the antibiotic as prescribed for 7 days Take the steroids as prescribed for 5 days Use your nebulizer or MDI with a spacer every 4 hr for the next thee days Take the tessalon and robitussin DM as needed for cough Tylenol as needed for pain and fever Rest and drink plenty of fluids Follow up with your PDM for a recheck tomorrow before the weekend Return if worse Discharge Date/Time: 06/06/18 18:35
--- NOTE | 2018-06-06 17:52 | XRAY Report ---
Reason: cough Procedure Date: 06/06/2018 Accession Number: [id number] / [id number] Procedure: XR - Chest 2 View X-Ray CPT Code: 27957 FULL RESULT: EXAM: CHEST RADIOGRAPHY EXAM DATE: 06/06/2018 05:25 PM. CLINICAL HISTORY: Cough. COMPARISON: CHEST 2 VIEW 05/16/2018 4:18 PM. TECHNIQUE: 2 views. FINDINGS: Lungs/Pleura: There is bilateral interstitial prominence. No consolidation. Lung volumes are normal. Negative for pleural effusion and pneumothorax. Mediastinum: Heart and mediastinal contours are unremarkable. Other: None. IMPRESSION: Mild interstitial prominence unchanged. Possible airway inflammation without focal pneumonia. RADIA
[2018-06-06] MEDS ORDERED: ALBUTEROL NEB 2.5 MG/3 ML INH SCH (18:00)
[2018-06-06] MEDS ORDERED: DOXYCYCLINE 100 MG TABLET PO STA (18:22)
[2018-06-06 18:36] VITALS: BP 119/58
== END 2018-06-06 18:35 | disposition home or self-care (01) ==
LOC: EDUNIT# → ED 16:45
DX: J44.1 Chronic obstructive pulmonary disease with (acute) exacerbation (principal); E11.9 Type 2 diabetes mellitus without complications; F17.200 Nicotine dependence, unspecified, uncomplicated
CPT/HCPCS: 71046; 87275; 87276; 94640; 99283; 99284; A9270; Q0162

== ENCOUNTER 2018-06-07 16:58 | Outpatient (CLI) | payer MEDICARE, MEDICAID | END 2018-06-07 16:59 | disposition critical access hospital (66) | LOC: EMS 16:58 | PROVIDERS: ATTEND Surgery | DX: T50.902A Poisoning by unspecified drugs, medicaments and biological substances, intentional self-harm, initial encounter (principal); R47.81 Slurred speech | CPT/HCPCS: A0425; A0429 ==

== ENCOUNTER 2018-06-07 17:20 | Emergency (ER) | payer MEDICARE, MEDICAID ==
--- NOTE | 2018-06-07 18:00 | ED Physician Documentation ---
PD HPI OVERDOSE - Stated complaint Stated Complaint: OD/ETOH - Chief complaint Chief Complaint: MHE - History obtained from History obtained from: Patient - History of Present Illness Timing - onset: Today Subtance(s) ingested: Multiple, EtOH Associated symptoms: No: Altered mental status, Chest pain, Abdominal pain Contributing factors: Depresssed, Suicidal (impulsive feeling earlier when she got into disagreement with roommate and then drank a hard lemonade and took 2 extra doses of her medications (both of tomorrow's day and night doses of her usual meds at same time, along with today's evening dose)) Similar symptoms before: Diagnosis (long history of depression, substance abuse, extra dosings of meds, suicidality and impulsivity.) Recently seen: Emergency Dept Review of Systems Constitutional: denies: Fever Nose: denies: Rhinorrhea / runny nose, Congestion Throat: denies: Sore throat Cardiac: denies: Chest pain / pressure, Palpitations Respiratory: denies: Cough GI: denies: Abdominal Pain, Nausea, Vomiting, Diarrhea Neurologic: denies: Generalized weakness, Focal weakness, Numbness, Altered mental status, Headache, Head injury Psychiatric: reports: Depressed. denies: Suicidal (denies it now, said she felt that way briefly when she was mad earlier.) PD PAST MEDICAL HISTORY - Past Medical History Past Medical History: Yes Cardiovascular: Angina, Other Respiratory: COPD, Pneumonia Neuro: Seizure disorder Endocrine/Autoimmune: Type 2 diabetes GI: GERD, Hiatal hernia WEB MARKETING COORDINATOR: None : None HEENT: None Psych: Depression, Schizophrenia, Post traumatic stress disorder Musculoskeletal: None Derm: None - Past Surgical History Past Surgical History: Yes General: Bowel surgery Ortho: Other /WEB MARKETING COORDINATOR: 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 HEENT: Cataracts - Present Medications Home Medications: Ambulatory Orders Medication Instructions Recorded Confirmed Divalproex ER [Depakote ER] 250 mg PO BID 12/25/16 05/17/18 Divalproex ER [Depakote ER] 500 mg PO BID 12/25/16 05/17/18 Sucralfate 1 tab PO DAILY 02/15/18 05/17/18 clonazePAM [Clonazepam] 0.5 mg PO DAILY 04/13/18 05/17/18 Albuterol Sulf [Ventolin Hfa 1 - 2 puffs INH Q4HR PRN #1 inhaler 05/16/18 05/17/18 Inhaler] Ondansetron Odt [Zofran] 4 mg TL Q6H PRN #10 tablet 05/16/18 OLANZapine [Zyprexa Zydis] 10 mg PO BID 05/17/18 05/17/18 Benzonatate [Tessalon] 100 mg PO TID PRN #20 capsule 06/06/18 Doxycycline Hyclate 100 mg PO BID #20 capsule 06/06/18 guaiFENesin/DEXTROMETHORPHAN 10 ml PO Q6H PRN #120 ml 06/06/18 [Robitussin Dm] predniSONE [Deltasone] 60 mg PO DAILY 5 Days tablet 06/06/18 - Allergies Allergies/Adverse Reactions: Allergies Allergy/AdvReac Type Severity Reaction Status Date / Time azithromycin Allergy Severe Hives Verified 06/06/18 16:54 haloperidol Allergy Severe Anaphylaxis Verified 06/06/18 16:54 Penicillins Allergy Severe Anaphylaxis Verified 06/06/18 16:54 amoxicillin [Amoxicillin] Allergy Intermediate Rash Verified 06/06/18 16:54 grapefruit Allergy Intermediate Rash Verified 06/06/18 16:54 iodine Allergy Intermediate Rash Verified 06/06/18 16:54 Sulfa (Sulfonamide Allergy Intermediate Rash Verified 06/06/18 16:54 Antibiotics) haloperidol lactate * AdvReac Rash Verified 06/06/18 16:54 [From Haldol] - Social History Does the pt smoke?: Yes Smoking Status: Current every day smoker Does the pt drink ETOH?: Yes Does the pt have substance abuse?: No - Immunizations Immunizations are current?: No Immunizations: TDAP >10years/unknown - POLST Patient has POLST: No PD ED PE NORMAL - Vitals Vital signs reviewed: Yes - General General: Alert and oriented X 3, Well developed/nourished - HEENT HEENT: Moist mucous membranes, Pharynx benign - Neck Neck: Supple, no meningeal sign, No adenopathy - Cardiac Cardiac: No murmur. No: RRR (mild tachycardia but regular) - Respiratory Respiratory: Clear bilaterally - Abdomen Abdomen: Soft, Non tender - Derm Derm: Normal color, Warm and dry - Neuro Neuro: Alert and oriented X 3, No motor deficit, No sensory deficit, Normal speech, Other (baseline level of cognitive deficit that I am familiar with. ) Eye Opening: Spontaneous Motor: Obeys Commands Verbal: Oriented GCS Score: 15 - Psych Psych: Normal mood (she denies depression and suicidal ideation at this time) Results - Vitals Vitals: Oxygen O2 Source [With Activity] Room air O2 Source [Without Activity] Room air O2 Source Room air - Labs Labs: Laboratory Tests 06/07/18 06/07/18 06/07/18 18:10 18:10 18:10 WBC 22.0 H RBC 4.10 L Hgb 12.0 Hct 36.9 L MCV 90.0 MCH 29.2 MCHC 32.4 RDW 15.5 H Plt Count 271 MPV 9.2 Neut # (Auto) 13.2 H Lymph # (Auto) 6.1 H [place] # (Auto) 2.6 H Eos # (Auto) 0.0 Baso # (Auto) 0.1 Absolute Nucleated RBC 0.01 Nucleated RBC % 0.1 Manual Slide Review Indicated Platelet Estimate NORMAL (130-450,000) Platelet Morphology NORMAL APPEARANCE RBC Morph Micro Appear NORMAL APPEARANCE Sodium 141 Potassium 3.3 L Chloride 110 Carbon Dioxide 21 Anion Gap 10.0 BUN 14 Creatinine 0.8 Estimated GFR (MDRD) 75 L Glucose 127 H Calcium 8.8 Magnesium 2.3 Total Bilirubin 0.5 AST 18 ALT 16 Alkaline Phosphatase 57 Ammonia 75.2 H Total Protein 6.7 Albumin 3.4 Globulin 3.3 Albumin/Globulin Ratio 1.0 Lipase 21 L Urine Color Urine Clarity Urine pH Ur Specific [place] Urine Protein Urine Glucose (UA) Urine Ketones Urine Occult Blood Urine Nitrite Urine Bilirubin Urine Urobilinogen Ur Leukocyte Esterase Ur Microscopic Review Urine Culture Comments Last Dose Date Last Dose Time Salicylates < 6.0 Urine Opiates Screen Ur Oxycodone Screen Urine Methadone Screen Ur Propoxyphene Screen Acetaminophen < 10 L Ur Barbiturates Screen Valproic Acid Ur Tricyclics Screen Ur Phencyclidine Scrn Ur Amphetamine Screen U Methamphetamines Scrn U Benzodiazepines Scrn Urine Cocaine Screen U Cannabinoids Screen Ethyl Alcohol 47.0 06/07/18 06/07/18 18:10 18:20 WBC RBC Hgb Hct MCV MCH MCHC RDW Plt Count MPV Neut # (Auto) Lymph # (Auto) [place] # (Auto) Eos # (Auto) Baso # (Auto) Absolute Nucleated RBC Nucleated RBC % Manual Slide Review Platelet Estimate Platelet Morphology RBC Morph Micro Appear Sodium Potassium Chloride Carbon Dioxide Anion Gap BUN Creatinine Estimated GFR (MDRD) Glucose Calcium Magnesium Total Bilirubin AST ALT Alkaline Phosphatase Ammonia Total Protein Albumin Globulin Albumin/Globulin Ratio Lipase Urine Color YELLOW Urine Clarity CLEAR Urine pH 6.0 Ur Specific [place] <=1.005 Urine Protein NEGATIVE Urine Glucose (UA) NEGATIVE Urine Ketones NEGATIVE Urine Occult Blood NEGATIVE Urine Nitrite NEGATIVE Urine Bilirubin NEGATIVE Urine Urobilinogen 0.2 (NORMAL) Ur Leukocyte Esterase NEGATIVE Ur Microscopic Review NOT INDICATED Urine Culture Comments NOT INDICATED Last Dose Date UNK Last Dose Time UNK Salicylates Urine Opiates Screen NEGATIVE Ur Oxycodone Screen NEGATIVE Urine Methadone Screen NEGATIVE Ur Propoxyphene Screen NEGATIVE Acetaminophen Ur Barbiturates Screen NEGATIVE Valproic Acid 79.5 Ur Tricyclics Screen NEGATIVE Ur Phencyclidine Scrn NEGATIVE Ur Amphetamine Screen NEGATIVE U Methamphetamines Scrn NEGATIVE U Benzodiazepines Scrn NEGATIVE Urine Cocaine Screen NEGATIVE U Cannabinoids Screen NEGATIVE Ethyl Alcohol PD MEDICAL DECISION MAKING - ED course Complexity details: reviewed results (her valproic level is good and has room to spare that if she is still absorbing some meds, that 2 extra doses would not get to dangerous level. ), re-evaluated patient (She denies suicidal ideation at this time. Asked if she were to go home, would she hurt herself, she answered "not tonight", which is reasonably honest for [facility] to not vouch for skilled nursing. She has had multiple visits with similar and has done well if she says she is past the feeling of wanting to hurt herself. I certainly would not be able to vouch for manager intermediate with her, given her cognitive level and impulsivity, but are at the best level of likely safety short term that we could expect at this time. ), considered differential (she has some time to sober in the ER and also watched for abnormal vitals. No problems while here. ), d/w patient - Sepsis Event Vital Signs: Oxygen O2 Source [With Activity] Room air O2 Source [Without Activity] Room air O2 Source Room air Departure - Departure Disposition: 01 Home, Self Care Clinical Impression: Drug overdose, intentional Qualifiers: Encounter type: initial encounter Qualified Code(s): T50.902A - Poisoning by unspecified drugs, medicaments and biological substances, intentional self-harm, initial encounter Condition: Stable Record reviewed to determine appropriate education?: Yes Instructions: ED Stress React, ED Overdose Intentional Follow-Up: Patricia Hunter DNP [Primary Care Provider] - Comments: Drink lots of fluids. Continue usual medications at regular doses. Do not take extra medicines. No alcohol use. Call the crisis line if he feels stressed. Return as needed. Discharge Date/Time: 06/07/18 22:30
[2018-06-07 18:08] LABS: BASOPHILS # (AUTO) 0.1 10^3/uL (0.0-0.1); BASOPHILS % (AUTO) 0.5 %; EOSINOPHILS % (AUTO) 0.1 %; LYMPHOCYTES # (AUTO) 6.1 10^3/uL (1.5-3.5); LYMPHOCYTES % (AUTO) 27.9 %; MEAN CORPUSCULAR HEMOGLOBIN 29.2 pg (27.0-31.0); MEAN CORPUSCULAR HGB CONC 32.4 g/dL (32.0-36.0); MEAN PLATELET VOLUME 9.2 fL (7.9-10.8); MONOCYTES # (AUTO) 2.6 10^3/uL (0.0-1.0); MONOCYTES % (AUTO) 11.8 %; NEUTROPHILS # (AUTO) 13.2 10^3/uL (1.5-6.6); NEUTROPHILS % (AUTO) 59.7 %; PLT - PLATELET COUNT 271 10^3/uL (130-450); RED CELL DISTRIBUTION WIDTH 15.5 % (12.0-15.0)
[2018-06-07 18:26] LABS: ALBUMIN 3.4 g/dL (3.2-5.5); ALT ALANINE AMINOTRANSFERASE 16 IU/L (10-60); AST ASPARTATE AMINOTRANSFERASE 18 IU/L (10-42); BILIRUBIN,TOTAL 0.5 mg/dL (0.2-1.0); CALCIUM 8.8 mg/dL (8.5-10.3); CARBON DIOXIDE - CO2 21 mmol/L (21-32); CHLORIDE 110 mmol/L (101-111); CREATININE 0.8 mg/dL (0.4-1.0); GFR - MDRD 75 (>89); GLUCOSE 127 mg/dL (70-100); MAGNESIUM 2.3 mg/dL (1.7-2.8); SALICYLATE < 6.0 mg/dL; SODIUM 141 mmol/L (135-145); TOTAL PROTEIN 6.7 g/dL (6.7-8.2)
[2018-06-07 18:32] LABS: MUDS CUTOFF CONCENTRATIONS CUTOFF CONC BELOW:
[2018-06-07 18:44] LABS: BILIRUBIN,URINE NEGATIVE (NEGATIVE); GLUCOSE, URINE (UA) NEGATIVE (NEGATIVE); KETONES,URINE (UA) NEGATIVE (NEGATIVE); LEUKOCYTE ESTERASE, URINE NEGATIVE (NEGATIVE); NITRITE,URINE NEGATIVE (NEGATIVE); OCCULT BLOOD,URINE NEGATIVE (NEGATIVE); PROTEIN,URINE NEGATIVE (NEGATIVE); UROBILINOGEN,URINE 0.2 (NORMAL) E.U./dL (NORMAL)
[2018-06-07 18:50] LABS: CLARITY,URINE CLEAR (CLEAR)
[2018-06-07 18:58] LABS: ALKALINE PHOSPHATASE 57 IU/L (42-121); BUN - BLOOD UREA NITROGEN 14 mg/dL (6-20); LIPASE 21 U/L (22-51)
[2018-06-07 18:59] LABS: AMPHETAMINE SCREEN,URINE NEGATIVE (NEGATIVE); BENZODIAZEPINES SCREEN, URINE NEGATIVE (NEGATIVE); COCAINE SCREEN URINE NEGATIVE (NEGATIVE); METHADONE SCREEN, URINE NEGATIVE (NEGATIVE); METHAMPHETAMINES SCREEN, URINE NEGATIVE (NEGATIVE); OPIATE SCREEN, URINE NEGATIVE (NEGATIVE); OXYCODONE SCREEN, URINE NEGATIVE (NEGATIVE); PROPOXYPHENE SCREEN, URINE NEGATIVE (NEGATIVE); TRICYCLIC ANTIDEPRESSANT,URINE NEGATIVE (NEGATIVE)
[2018-06-07 19:00] LABS: ACETAMINOPHEN < 10 ug/mL (10-30)
[2018-06-07 19:13] LABS: VALPROIC ACID (DEPAKOTE) 79.5 ug/mL
[2018-06-07 19:19] LABS: PLATELET ESTIMATE, MANUAL NORMAL (130-450,000) (NORMAL); PLATELET MORPHOLOGY NORMAL APPEARANCE (NORMAL); RBC MORPHOLOGY (MULTIPLE) NORMAL APPEARANCE (NORMAL)
[2018-06-07] MEDS ORDERED: LORazepam 0.5 MG TABLET PO STA (20:12)
[2018-06-07 22:32] VITALS: BP 110/65
--- NOTE | 2018-06-07 23:11 | ED Physician Documentation ---
ED Addendum - Addendum Addendum: 06/07/18 23:11 unscheduled return visit - chart accessed for follow up and educational purposes
== END 2018-06-07 22:30 | disposition home or self-care (01) ==
LOC: EDUNIT# → ED 17:20
DX: T50.902A Poisoning by unspecified drugs, medicaments and biological substances, intentional self-harm, initial encounter (principal); T51.0X2A Toxic effect of ethanol, intentional self-harm, initial encounter; E11.9 Type 2 diabetes mellitus without complications; F17.200 Nicotine dependence, unspecified, uncomplicated; F20.9 Schizophrenia, unspecified; F43.10 Post-traumatic stress disorder, unspecified; F32.9 Major depressive disorder, single episode, unspecified; J44.9 Chronic obstructive pulmonary disease, unspecified
CPT/HCPCS: 36415; 80053; 80164; 81003; 82140; 83690; 83735; 85025; 93005; 99283; 99284; A9270; 80306; 80307; 80320; 80329; 81001; 83605; 87086

== ENCOUNTER 2018-06-12 15:51 | Outpatient (CLI) | payer MEDICARE, MEDICAID | END 2018-06-12 15:52 | disposition critical access hospital (66) | LOC: EMS 15:51 | PROVIDERS: ATTEND Surgery | DX: T63.441A Toxic effect of venom of bees, accidental (unintentional), initial encounter (principal); R06.02 Shortness of breath; M79.89 Other specified soft tissue disorders; Y92.009 Unspecified place in unspecified non-institutional (private) residence as the place of occurrence of the external cause | CPT/HCPCS: A0425; A0427 ==

== ENCOUNTER 2018-06-12 16:14 | Emergency (ER) | payer MEDICARE, MEDICAID ==
[2018-06-12] MEDS ORDERED: DEXAMETHASONE 10 MG/ML VIAL IVP STA (16:21)
[2018-06-12] MEDS ORDERED: diphenhydrAMINE INJ 50 MG/ML VIAL IVP STA (16:21)
[2018-06-12] MEDS ORDERED: IPRATROPIUM/ALBUTEROL 3 ML NEB INH STA (16:21)
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
[2018-06-12] MEDS ORDERED: ACETAMINOPHEN 325 MG TABLET PO STA (17:56)
[2018-06-12 18:22] VITALS: BP 150/80
== END 2018-06-12 18:20 | disposition home or self-care (01) ==
LOC: EDUNIT# → ED 16:14
DX: T63.441A Toxic effect of venom of bees, accidental (unintentional), initial encounter (principal); J44.9 Chronic obstructive pulmonary disease, unspecified; F17.200 Nicotine dependence, unspecified, uncomplicated
CPT/HCPCS: 94640; 96374; 99283; A9270; J1200

== ENCOUNTER 2018-07-04 16:28 | Outpatient (CLI) | payer MEDICARE, MEDICAID | END 2018-07-04 16:29 | disposition critical access hospital (66) | LOC: EMS 16:28 | PROVIDERS: ATTEND Surgery | DX: M54.9 Dorsalgia, unspecified (principal) | CPT/HCPCS: A0425; A0429 ==

== ENCOUNTER 2018-07-04 16:28 | Emergency (ER) | payer MEDICARE, MEDICAID ==
[2018-07-04] MEDS ORDERED: MELOXICAM 7.5 MG TABLET PO STA (16:48)
[2018-07-04] MEDS ORDERED: CYCLOBENZAPRINE 10 MG TABLET PO STA (16:48)
--- NOTE | 2018-07-04 16:56 | ED Physician Documentation ---
PD HPI BACK PAIN - Stated complaint Stated Complaint: BACK PX - Chief complaint Chief Complaint: Back Pain - History obtained from History obtained from: Patient - History of Present Illness Timing - onset: How many weeks ago (1) Timing - duration: Weeks (1) Timing - details: Gradual onset Pain level max: 8 Pain level now: 6 Location: Mid, Lower, Right, Left Quality: Pain, Spasm, Similar to prior episodes Associated symptoms: No: Fever, Weakness, Numbness, Incontinent of urine, Unable to urinate, Hematuria, Incontinent of stool Improves with: Rest Worsened by: Movement Contributing factors: No: Lifting, Twisting, Trauma, Anticoagulated, Cancer, IVDA Similar symptoms before: Diagnosis (lumbar strain) Recently seen: Not recently seen - Additional information Additional information: Patient denies any falling, trauma or changes and lifting. She does also complain of vaginal discomfort for the past week. No discharge. Is not currently sexually active. Does not place anything in the vagina. Review of Systems Constitutional: denies: Fever, Chills GI: denies: Vomiting, Diarrhea Skin: denies: Rash Musculoskeletal: denies: Neck pain Neurologic: denies: Focal weakness, Numbness, Headache PD PAST MEDICAL HISTORY - Past Medical History Past Medical History: Yes Cardiovascular: Angina, Other Respiratory: COPD, Pneumonia Neuro: Seizure disorder Endocrine/Autoimmune: Type 2 diabetes GI: GERD, Hiatal hernia CHILD WELFARE COUNSELOR: None : None HEENT: None Psych: Depression, Schizophrenia, Post traumatic stress disorder Musculoskeletal: None Derm: None - Past Surgical History Past Surgical History: Yes General: Bowel surgery Ortho: Other /CHILD WELFARE COUNSELOR: 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 HEENT: Cataracts - Present Medications Home Medications: Ambulatory Orders Medication Instructions Recorded Confirmed Divalproex ER [Depakote ER] 250 mg PO BID 12/25/16 07/04/18 Divalproex ER [Depakote ER] 500 mg PO BID 12/25/16 07/04/18 Sucralfate 1 tab PO DAILY 02/15/18 07/04/18 clonazePAM [Clonazepam] 0.5 mg PO DAILY 04/13/18 07/04/18 Albuterol Sulf [Ventolin Hfa 1 - 2 puffs INH Q4HR PRN #1 inhaler 05/16/18 07/04/18 Inhaler] Ondansetron Odt [Zofran] 4 mg TL Q6H PRN #10 tablet 05/16/18 07/04/18 OLANZapine [Zyprexa Zydis] 10 mg PO BID 05/17/18 07/04/18 Benzonatate [Tessalon] 100 mg PO TID PRN #20 capsule 06/06/18 07/04/18 Doxycycline Hyclate 100 mg PO BID #20 capsule 06/06/18 07/04/18 guaiFENesin/DEXTROMETHORPHAN 10 ml PO Q6H PRN #120 ml 06/06/18 07/04/18 [Robitussin Dm] predniSONE [Deltasone] 60 mg PO DAILY 5 Days tablet 06/06/18 07/04/18 predniSONE [Prednisone] 40 mg PO DAILY #10 tablet 06/12/18 07/04/18 Cyclobenzaprine [Flexeril] 10 mg PO TID PRN #20 tablet 07/04/18 Meloxicam [Mobic] 15 mg PO DAILY PRN #20 tablet 07/04/18 - Allergies Allergies/Adverse Reactions: Allergies Allergy/AdvReac Type Severity Reaction Status Date / Time azithromycin Allergy Severe Hives Verified 07/04/18 16:35 haloperidol Allergy Severe Anaphylaxis Verified 07/04/18 16:35 Penicillins Allergy Severe Anaphylaxis Verified 07/04/18 16:35 amoxicillin [Amoxicillin] Allergy Intermediate Rash Verified 07/04/18 16:35 grapefruit Allergy Intermediate Rash Verified 07/04/18 16:35 iodine Allergy Intermediate Rash Verified 07/04/18 16:35 Sulfa (Sulfonamide Allergy Intermediate Rash Verified 07/04/18 16:35 Antibiotics) haloperidol lactate * AdvReac Rash Verified 07/04/18 16:35 [From Haldol] - Social History Does the pt smoke?: Yes Smoking Status: Current every day smoker Does the pt drink ETOH?: Yes Does the pt have substance abuse?: No - Immunizations Immunizations are current?: No Immunizations: TDAP >10years/unknown - POLST Patient has POLST: No PD ED PE NORMAL - Vitals Vital signs reviewed: Yes - General General: Alert and oriented X 3, No acute distress - HEENT HEENT: Moist mucous membranes - Neck Neck: Supple, no meningeal sign, No bony TTP - Cardiac Cardiac: RRR - Respiratory Respiratory: No respiratory distress, Clear bilaterally - Abdomen Abdomen: Soft, Non tender, Non distended - Female Female : Furnace Erector present ([place] BASS), Other (Normal external exam, mild erythema to the vaginal blanca. No significant discharge. No bleeding. No foreign bodies.) - Back Back: No spinal TTP (No midline tenderness to palpation or percussion. No step- off or deformity. Does have paraspinal spasm present bilaterally.) - Derm Derm: Warm and dry, No rash - Extremities Extremities: Other (Normal bilateral lower extremity patellar and ankle jerk reflexes. Normal great toe extension bilaterally. no saddle anesthesia) - Neuro Neuro: Alert and oriented X 3, No motor deficit, No sensory deficit - Psych Psych: Normal mood, Normal affect Results - Vitals Vitals: Vital Signs - 24 hr 07/04/18 16:30 Temperature 37.1 C Heart Rate 104 H Respiratory 20 Rate Blood Pressure 142/82 H O2 Saturation 98 Oxygen O2 Source [With Activity] Room air O2 Source [Without Activity] Room air O2 Source Room air - Labs Labs: Microbiology 07/04/18 17:29 Wet Prep - Final Vaginal Laboratory Tests 07/04/18 16:40 Urine Color YELLOW Urine Clarity CLEAR Urine pH 6.0 Ur Specific [place] <=1.005 Urine Protein NEGATIVE Urine Glucose (UA) NEGATIVE Urine Ketones NEGATIVE Urine Occult Blood NEGATIVE Urine Nitrite NEGATIVE Urine Bilirubin NEGATIVE Urine Urobilinogen 0.2 (NORMAL) Ur Leukocyte Esterase NEGATIVE Ur Microscopic Review NOT INDICATED Urine Culture Comments NOT INDICATED PD MEDICAL DECISION MAKING - ED course Complexity details: reviewed results, re-evaluated patient, considered differential (No cauda equina, no spinal epidural abscess, no fracture, no aortic dissection or evidence of aneursym rupture), d/w patient ED course: Patient is a 53-year-old female who presents to the emergency department with low back pain. Feels better after pain medication and muscle relaxants. Will continue supportive care. No evidence of fracture. No need for imaging at this time. Also has vaginal discomfort of unclear etiology. We will have her follow-up with her doctor for this. Wet mount is negative. She is not sexually active. Does not have significant discharge. Patient counseled regarding signs and symptoms for which I believe and urgent re-evaluation would be necessary. Patient with good understanding of and agreement to plan and is comfortable going home at this time This document was made in part using voice recognition software. While efforts are made to proofread this document, sound alike and grammatical errors may occur. No abdominal or pelvic tenderness to palpation. Departure - Departure Disposition: 01 Home, Self Care Clinical Impression: Vaginal pain Low back strain Qualifiers: Encounter type: initial encounter Qualified Code(s): S39.012A - Strain of muscle, fascia and tendon of lower back, initial encounter Condition: Good Instructions: ED Spasm Back No Trauma Follow-Up: Patricia Hunter DNP [Primary Care Provider] - Within 1 week Prescriptions: Cyclobenzaprine [Flexeril] 10 mg PO TID PRN #20 tablet PRN Reason: Spasms Meloxicam [Mobic] 15 mg PO DAILY PRN #20 tablet PRN Reason: pain Comments: Take the medications as prescribed for your back. Your pelvic examination and testing there were normal night. You should follow-up with your doctor for further care. Return if you worsen
[2018-07-04 17:41] LABS: BILIRUBIN,URINE NEGATIVE (NEGATIVE); CLARITY,URINE CLEAR (CLEAR); GLUCOSE, URINE (UA) NEGATIVE (NEGATIVE); KETONES,URINE (UA) NEGATIVE (NEGATIVE); LEUKOCYTE ESTERASE, URINE NEGATIVE (NEGATIVE); NITRITE,URINE NEGATIVE (NEGATIVE); OCCULT BLOOD,URINE NEGATIVE (NEGATIVE); PROTEIN,URINE NEGATIVE (NEGATIVE); UROBILINOGEN,URINE 0.2 (NORMAL) E.U./dL (NORMAL)
[2018-07-04] MEDS ORDERED: HYDROcod/ACETAM 5/325 MG TABLET PO STA (17:43)
[2018-07-04 18:01] VITALS: BP 140/84
== END 2018-07-04 18:01 | disposition home or self-care (01) ==
LOC: EDUNIT# → ED 16:28
DX: R10.2 Pelvic and perineal pain (principal); S39.012A Strain of muscle, fascia and tendon of lower back, initial encounter; X58.XXXA Exposure to other specified factors, initial encounter; E11.9 Type 2 diabetes mellitus without complications; F17.200 Nicotine dependence, unspecified, uncomplicated
CPT/HCPCS: 81003; 87210; 99283; A9270; 81001; 87086

== ENCOUNTER 2018-07-20 13:32 | Outpatient (CLI) | payer MEDICARE, MEDICAID | END 2018-07-20 13:33 | disposition critical access hospital (66) | LOC: EMS 13:32 | PROVIDERS: ATTEND Surgery | DX: T45.0X2A Poisoning by antiallergic and antiemetic drugs, intentional self-harm, initial encounter (principal) | CPT/HCPCS: A0425; A0429 ==

== ENCOUNTER 2018-07-20 13:55 | Emergency (ER) | payer MEDICARE, MEDICAID ==
[2018-07-20 14:04] LABS: MUDS CUTOFF CONCENTRATIONS CUTOFF CONC BELOW:
[2018-07-20 14:16] LABS: BILIRUBIN,URINE NEGATIVE (NEGATIVE); GLUCOSE, URINE (UA) NEGATIVE (NEGATIVE); KETONES,URINE (UA) NEGATIVE (NEGATIVE); LEUKOCYTE ESTERASE, URINE NEGATIVE (NEGATIVE); NITRITE,URINE NEGATIVE (NEGATIVE); OCCULT BLOOD,URINE TRACE-LYSE (NEGATIVE); PROTEIN,URINE NEGATIVE (NEGATIVE); UROBILINOGEN,URINE 0.2 (NORMAL) E.U./dL (NORMAL)
[2018-07-20 14:18] LABS: CLARITY,URINE CLEAR (CLEAR); HCG UR QUAL NEGATIVE
[2018-07-20 14:28] LABS: AMPHETAMINE SCREEN,URINE NEGATIVE (NEGATIVE); BENZODIAZEPINES SCREEN, URINE NEGATIVE (NEGATIVE); COCAINE SCREEN URINE NEGATIVE (NEGATIVE); METHADONE SCREEN, URINE NEGATIVE (NEGATIVE); METHAMPHETAMINES SCREEN, URINE NEGATIVE (NEGATIVE); OPIATE SCREEN, URINE NEGATIVE (NEGATIVE); OXYCODONE SCREEN, URINE NEGATIVE (NEGATIVE); PROPOXYPHENE SCREEN, URINE NEGATIVE (NEGATIVE); TRICYCLIC ANTIDEPRESSANT,URINE NEGATIVE (NEGATIVE)
--- NOTE | 2018-07-20 14:45 | ED Physician Documentation ---
History of Present Illness - Stated complaint Stated Complaint: SI/OD - Chief complaint Chief Complaint: MHE - Additonal information Additional information: hx from pt 53 f well known to our ER BIBA today she states she took 14 OTC sleeping pills (ingeredient unknown but likely doxylamine or benadryl) she states becauise she wanted to sleep she denies SI HI hallucination also some beer no recent fever baseline cough 2/2 smoker no abd pain NVD Review of Systems Constitutional: denies: Fever, Chills Cardiac: denies: Chest pain / pressure Respiratory: denies: Dyspnea GI: denies: Abdominal Pain, Vomiting, Diarrhea Psychiatric: denies: Depressed, Suicidal Immunocompromised: denies: Immunocompromised PD PAST MEDICAL HISTORY - Past Medical History Cardiovascular: Angina, Other Respiratory: COPD, Pneumonia Neuro: Seizure disorder Endocrine/Autoimmune: Type 2 diabetes GI: GERD, Hiatal hernia WHEEL INSPECTOR: None : None HEENT: None Psych: Depression, Schizophrenia, Post traumatic stress disorder Musculoskeletal: None Derm: None - Past Surgical History Past Surgical History: Yes General: Bowel surgery Ortho: Other /WHEEL INSPECTOR: 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 HEENT: Cataracts - Present Medications Home Medications: Ambulatory Orders Medication Instructions Recorded Confirmed Divalproex ER [Depakote ER] 250 mg PO BID 12/25/16 07/04/18 Divalproex ER [Depakote ER] 500 mg PO BID 12/25/16 07/04/18 Sucralfate 1 tab PO DAILY 02/15/18 07/04/18 clonazePAM [Clonazepam] 0.5 mg PO DAILY 04/13/18 07/04/18 Albuterol Sulf [Ventolin Hfa 1 - 2 puffs INH Q4HR PRN #1 inhaler 05/16/18 07/04/18 Inhaler] Ondansetron Odt [Zofran] 4 mg TL Q6H PRN #10 tablet 05/16/18 07/04/18 OLANZapine [Zyprexa Zydis] 10 mg PO BID 05/17/18 07/04/18 Benzonatate [Tessalon] 100 mg PO TID PRN #20 capsule 06/06/18 07/04/18 Doxycycline Hyclate 100 mg PO BID #20 capsule 06/06/18 07/04/18 guaiFENesin/DEXTROMETHORPHAN 10 ml PO Q6H PRN #120 ml 06/06/18 07/04/18 [Robitussin Dm] predniSONE [Deltasone] 60 mg PO DAILY 5 Days tablet 06/06/18 07/04/18 predniSONE [Prednisone] 40 mg PO DAILY #10 tablet 06/12/18 07/04/18 Cyclobenzaprine [Flexeril] 10 mg PO TID PRN #20 tablet 07/04/18 Meloxicam [Mobic] 15 mg PO DAILY PRN #20 tablet 07/04/18 - Allergies Allergies/Adverse Reactions: Allergies Allergy/AdvReac Type Severity Reaction Status Date / Time azithromycin Allergy Severe Hives Verified 07/20/18 14:06 haloperidol Allergy Severe Anaphylaxis Verified 07/20/18 14:06 Penicillins Allergy Severe Anaphylaxis Verified 07/20/18 14:06 amoxicillin [Amoxicillin] Allergy Intermediate Rash Verified 07/20/18 14:06 grapefruit Allergy Intermediate Rash Verified 07/20/18 14:06 iodine Allergy Intermediate Rash Verified 07/20/18 14:06 Sulfa (Sulfonamide Allergy Intermediate Rash Verified 07/20/18 14:06 Antibiotics) haloperidol lactate * AdvReac Rash Verified 07/20/18 14:06 [From Haldol] - Social History Does the pt smoke?: Yes Smoking Status: Current every day smoker Does the pt drink ETOH?: Yes Does the pt have substance abuse?: No - Immunizations Immunizations are current?: No Immunizations: TDAP >10years/unknown - POLST Patient has POLST: No PD ED PE NORMAL - Vitals Vital signs reviewed: Yes (tachy) - General General: Alert and oriented X 3 - HEENT HEENT: Atraumatic, PERRL (4) - Neck Neck: Supple, no meningeal sign - Cardiac Cardiac: RRR - Respiratory Respiratory: No respiratory distress, Other (coarse and occ mild wheeze mikaela c/w her smoking hx) - Abdomen Abdomen: Soft, Non tender - Derm Derm: Normal color - Neuro Neuro: Alert and oriented X 3 Eye Opening: Spontaneous Motor: Obeys Commands Verbal: Oriented GCS Score: 15 Results - Vitals Vitals: Vital Signs - 24 hr 07/20/18 14:02 Temperature 36.5 C Heart Rate 109 H Respiratory 16 Rate Blood Pressure 168/91 H O2 Saturation 95 Oxygen O2 Source [With Activity] Room air O2 Source [Without Activity] Room air O2 Source Room air - EKG (time done) 1431 Rate: Rate (enter#) (106) Rhythm: NSR [place]: LAD Intervals: Normal IN, RBBB (borderline) Ischemia: Non specific changes Compare to prior EKG: Unchanged from prior EKG (very similar to May 2018) - Labs Labs: Laboratory Tests 07/20/18 07/20/18 07/20/18 13:58 13:59 14:47 WBC 14.6 H RBC 4.63 Hgb 13.3 Hct 39.6 MCV 85.6 MCH 28.7 MCHC 33.6 RDW 15.9 H Plt Count 327 MPV 9.2 Neut # (Auto) 7.1 H Lymph # (Auto) 5.2 H [place] # (Auto) 2.1 H Eos # (Auto) 0.1 Baso # (Auto) 0.1 Absolute Nucleated RBC 0.01 Nucleated RBC % 0.1 Sodium Potassium Chloride Carbon Dioxide Anion Gap BUN Creatinine Estimated GFR (MDRD) Glucose Calcium TSH Urine Color YELLOW Urine Clarity CLEAR Urine pH 6.0 Ur Specific [place] <=1.005 Urine Protein NEGATIVE Urine Glucose (UA) NEGATIVE Urine Ketones NEGATIVE Urine Occult Blood TRACE-LYSE Urine Nitrite NEGATIVE Urine Bilirubin NEGATIVE Urine Urobilinogen 0.2 (NORMAL) Ur Leukocyte Esterase NEGATIVE Ur Microscopic Review NOT INDICATED Urine Culture Comments NOT INDICATED Urine HCG, Qual NEGATIVE Salicylates Urine Opiates Screen NEGATIVE Ur Oxycodone Screen NEGATIVE Urine Methadone Screen NEGATIVE Ur Propoxyphene Screen NEGATIVE Acetaminophen Ur Barbiturates Screen NEGATIVE Ur Tricyclics Screen NEGATIVE Ur Phencyclidine Scrn NEGATIVE Ur Amphetamine Screen NEGATIVE U Methamphetamines Scrn NEGATIVE U Benzodiazepines Scrn NEGATIVE Urine Cocaine Screen NEGATIVE U Cannabinoids Screen NEGATIVE Ethyl Alcohol 07/20/18 07/20/18 14:47 14:47 WBC RBC Hgb Hct MCV MCH MCHC RDW Plt Count MPV Neut # (Auto) Lymph # (Auto) [place] # (Auto) Eos # (Auto) Baso # (Auto) Absolute Nucleated RBC Nucleated RBC % Sodium 138 Potassium 4.0 Chloride 105 Carbon Dioxide 24 Anion Gap 9.0 BUN 11 Creatinine 1.0 Estimated GFR (MDRD) 58 L Glucose 74 Calcium 8.9 TSH 3.30 Urine Color Urine Clarity Urine pH Ur Specific [place] Urine Protein Urine Glucose (UA) Urine Ketones Urine Occult Blood Urine Nitrite Urine Bilirubin Urine Urobilinogen Ur Leukocyte Esterase Ur Microscopic Review Urine Culture Comments Urine HCG, Qual Salicylates < 6.0 Urine Opiates Screen Ur Oxycodone Screen Urine Methadone Screen Ur Propoxyphene Screen Acetaminophen < 10 L Ur Barbiturates Screen Ur Tricyclics Screen Ur Phencyclidine Scrn Ur Amphetamine Screen U Methamphetamines Scrn U Benzodiazepines Scrn Urine Cocaine Screen U Cannabinoids Screen Ethyl Alcohol < 5.0 PD MEDICAL DECISION MAKING - ED course ED course: per poison control both doxylamine and bneandryl have similar side effects of drowsiness tachycardia hit dry confused etc and tx is symptomatic pt recovered uneventfully up and ambulatory seen by SW who does not feel pt is danger to self or others at this time (see SW note) will dc Departure - Departure Disposition: Home, Self Care Clinical Impression: Overdose Qualifiers: Encounter type: initial encounter Injury intent: undetermined intent Qualified Code(s): T50.904A - Poisoning by unspecified drugs, medicaments and biological substances, undetermined, initial encounter Condition: Good Instructions: ED Overdose Intentional Follow-Up: Patricia Hunter DNP [Primary Care Provider] - Comments: Your were not trying to hurt yourself today but it is still very important only to take medications as prescribed and not extras. Fortunately you are going to be OK and can go home for now Please stop smoking Follow up with your PMD Return if worse
[2018-07-20 14:51] LABS: BASOPHILS # (AUTO) 0.1 10^3/uL (0.0-0.1); BASOPHILS % (AUTO) 0.7 %; EOSINOPHILS # (AUTO) 0.1 10^3/uL (0.0-0.7); EOSINOPHILS % (AUTO) 0.8 %; HGB - HEMOGLOBIN 13.3 g/dL (12.0-16.0); LYMPHOCYTES # (AUTO) 5.2 10^3/uL (1.5-3.5); LYMPHOCYTES % (AUTO) 35.4 %; MEAN CORPUSCULAR HEMOGLOBIN 28.7 pg (27.0-31.0); MEAN CORPUSCULAR HGB CONC 33.6 g/dL (32.0-36.0); MEAN CORPUSCULAR VOLUME 85.6 fL (81.0-99.0); MEAN PLATELET VOLUME 9.2 fL (7.9-10.8); MONOCYTES # (AUTO) 2.1 10^3/uL (0.0-1.0); MONOCYTES % (AUTO) 14.6 %; NEUTROPHILS # (AUTO) 7.1 10^3/uL (1.5-6.6); NEUTROPHILS % (AUTO) 48.5 %; PLT - PLATELET COUNT 327 10^3/uL (130-450); RED BLOOD COUNT 4.63 10^6/uL (4.20-5.40); RED CELL DISTRIBUTION WIDTH 15.9 % (12.0-15.0); WHITE BLOOD COUNT 14.6 x10^3/uL (4.8-10.8)
[2018-07-20 15:05] LABS: ACETAMINOPHEN < 10 ug/mL (10-30); BUN - BLOOD UREA NITROGEN 11 mg/dL (6-20); CALCIUM 8.9 mg/dL (8.5-10.3); CARBON DIOXIDE - CO2 24 mmol/L (21-32); CHLORIDE 105 mmol/L (101-111); GFR - MDRD 58 (>89); GLUCOSE 74 mg/dL (70-100); SALICYLATE < 6.0 mg/dL; SODIUM 138 mmol/L (135-145)
[2018-07-20 16:58] VITALS: BP 166/96
== END 2018-07-20 16:59 | disposition home or self-care (01) ==
LOC: EDUNIT# → ED 13:55
DX: T50.991A Poisoning by other drugs, medicaments and biological substances, accidental (unintentional), initial encounter (principal); E11.9 Type 2 diabetes mellitus without complications; J44.9 Chronic obstructive pulmonary disease, unspecified; R00.0 Tachycardia, unspecified; I45.2 Bifascicular block; F17.200 Nicotine dependence, unspecified, uncomplicated
CPT/HCPCS: 36415; 80048; 80306; 80307; 80320; 80329; 81001; 81003; 81025; 84443; 85025; 87086; 93005; 99283; 99284

== ENCOUNTER 2018-07-23 10:46 | Emergency (ER) | payer MEDICARE, MEDICAID ==
[2018-07-23 11:20] LABS: MUDS CUTOFF CONCENTRATIONS CUTOFF CONC BELOW:
[2018-07-23 11:28] LABS: BILIRUBIN,URINE NEGATIVE (NEGATIVE); GLUCOSE, URINE (UA) NEGATIVE (NEGATIVE); KETONES,URINE (UA) NEGATIVE (NEGATIVE); LEUKOCYTE ESTERASE, URINE NEGATIVE (NEGATIVE); NITRITE,URINE NEGATIVE (NEGATIVE); OCCULT BLOOD,URINE NEGATIVE (NEGATIVE); PROTEIN,URINE NEGATIVE (NEGATIVE); UROBILINOGEN,URINE 0.2 (NORMAL) E.U./dL (NORMAL)
[2018-07-23 11:31] LABS: CLARITY,URINE CLEAR (CLEAR)
[2018-07-23 11:36] LABS: AMPHETAMINE SCREEN,URINE NEGATIVE (NEGATIVE); BENZODIAZEPINES SCREEN, URINE NEGATIVE (NEGATIVE); COCAINE SCREEN URINE NEGATIVE (NEGATIVE); METHADONE SCREEN, URINE NEGATIVE (NEGATIVE); METHAMPHETAMINES SCREEN, URINE NEGATIVE (NEGATIVE); OPIATE SCREEN, URINE NEGATIVE (NEGATIVE); OXYCODONE SCREEN, URINE NEGATIVE (NEGATIVE); PROPOXYPHENE SCREEN, URINE NEGATIVE (NEGATIVE); TRICYCLIC ANTIDEPRESSANT,URINE NEGATIVE (NEGATIVE)
[2018-07-23 11:49] LABS: BASOPHILS # (AUTO) 0.2 10^3/uL (0.0-0.1); BASOPHILS % (AUTO) 1.4 %; EOSINOPHILS # (AUTO) 0.2 10^3/uL (0.0-0.7); EOSINOPHILS % (AUTO) 1.5 %; HGB - HEMOGLOBIN 13.5 g/dL (12.0-16.0); LYMPHOCYTES # (AUTO) 5.5 10^3/uL (1.5-3.5); LYMPHOCYTES % (AUTO) 46.6 %; MEAN CORPUSCULAR HEMOGLOBIN 28.2 pg (27.0-31.0); MEAN CORPUSCULAR HGB CONC 32.8 g/dL (32.0-36.0); MEAN CORPUSCULAR VOLUME 86.1 fL (81.0-99.0); MEAN PLATELET VOLUME 9.5 fL (7.9-10.8); MONOCYTES # (AUTO) 1.7 10^3/uL (0.0-1.0); MONOCYTES % (AUTO) 14.6 %; NEUTROPHILS # (AUTO) 4.2 10^3/uL (1.5-6.6); NEUTROPHILS % (AUTO) 35.9 %; PLT - PLATELET COUNT 338 10^3/uL (130-450); RED BLOOD COUNT 4.78 10^6/uL (4.20-5.40); RED CELL DISTRIBUTION WIDTH 16.5 % (12.0-15.0); WHITE BLOOD COUNT 11.8 x10^3/uL (4.8-10.8)
[2018-07-23 12:01] LABS: ACETAMINOPHEN < 10 ug/mL (10-30); ALBUMIN 3.7 g/dL (3.2-5.5); ALKALINE PHOSPHATASE 77 IU/L (42-121); ALT ALANINE AMINOTRANSFERASE 18 IU/L (10-60); AST ASPARTATE AMINOTRANSFERASE 32 IU/L (10-42); BILIRUBIN,TOTAL 0.5 mg/dL (0.2-1.0); BUN - BLOOD UREA NITROGEN 12 mg/dL (6-20); CALCIUM 8.8 mg/dL (8.5-10.3); CARBON DIOXIDE - CO2 24 mmol/L (21-32); CHLORIDE 104 mmol/L (101-111); CREATININE 0.9 mg/dL (0.4-1.0); GFR - MDRD 65 (>89); GLUCOSE 132 mg/dL (70-100); LIPASE 20 U/L (22-51); SALICYLATE < 6.0 mg/dL; SODIUM 137 mmol/L (135-145); TOTAL PROTEIN 7.3 g/dL (6.7-8.2)
[2018-07-23 12:09] LABS: PLATELET MORPHOLOGY RARE GIANT PLATELETS (NORMAL)
--- NOTE | 2018-07-23 12:10 | ED Physician Documentation ---
PD HPI MHE - Stated complaint Stated Complaint: SI - Chief complaint Chief Complaint: MHE - History obtained from History obtained from: Patient - History of Present Illness Primary symptom: Suicidal ideation (She is feeling more suicidal than her baseline. She went to a counselor today and was referred to the ER for possible hospitalization because of the stated intent for self-harm.), Self harm - OD (She states she took 2 capfuls of Benadryl last night in attempt to hurt her self. She got a little bit sleepy but otherwise is feeling okay. She denies any lightheadedness, blurred vision, inability to urinate, palpitations.) Timing - onset: How many days ago (She has been feeling more depressed and suicidal last few days.) Contributing factors: No: Substance abuse - ETOH, Substance abuse - drugs Similar symptoms before: Diagnosis (depression chronic) Review of Systems Constitutional: denies: Fever Nose: denies: Rhinorrhea / runny nose, Congestion Throat: denies: Sore throat Cardiac: denies: Chest pain / pressure Respiratory: denies: Cough GI: reports: Nausea. denies: Abdominal Pain, Vomiting, Diarrhea Skin: denies: Abrasion (s), Laceration (s) Musculoskeletal: reports: Back pain Neurologic: reports: Generalized weakness. denies: Focal weakness, Numbness Psychiatric: reports: Depressed, Suicidal. denies: Homicidal, Hallucinations, Delusions PD PAST MEDICAL HISTORY - Past Medical History Past Medical History: Yes Cardiovascular: Angina, Other Respiratory: COPD, Pneumonia Neuro: Seizure disorder Endocrine/Autoimmune: Type 2 diabetes GI: GERD, Hiatal hernia PATIENT SERVICE SPECIALIST: None : None HEENT: None Psych: Depression, Schizophrenia, Post traumatic stress disorder Musculoskeletal: None Derm: None - Past Surgical History Past Surgical History: Yes General: Bowel surgery Ortho: Other /PATIENT SERVICE SPECIALIST: 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 HEENT: Cataracts - Present Medications Home Medications: Ambulatory Orders Medication Instructions Recorded Confirmed Divalproex ER [Depakote ER] 250 mg PO BID 12/25/16 07/04/18 Divalproex ER [Depakote ER] 500 mg PO BID 12/25/16 07/04/18 Sucralfate 1 tab PO DAILY 02/15/18 07/04/18 clonazePAM [Clonazepam] 0.5 mg PO DAILY 04/13/18 07/04/18 Albuterol Sulf [Ventolin Hfa 1 - 2 puffs INH Q4HR PRN #1 inhaler 05/16/18 07/04/18 Inhaler] Ondansetron Odt [Zofran] 4 mg TL Q6H PRN #10 tablet 05/16/18 07/04/18 OLANZapine [Zyprexa Zydis] 10 mg PO BID 05/17/18 07/04/18 Benzonatate [Tessalon] 100 mg PO TID PRN #20 capsule 06/06/18 07/04/18 Doxycycline Hyclate 100 mg PO BID #20 capsule 06/06/18 07/04/18 guaiFENesin/DEXTROMETHORPHAN 10 ml PO Q6H PRN #120 ml 06/06/18 07/04/18 [Robitussin Dm] predniSONE [Deltasone] 60 mg PO DAILY 5 Days tablet 06/06/18 07/04/18 predniSONE [Prednisone] 40 mg PO DAILY #10 tablet 06/12/18 07/04/18 Cyclobenzaprine [Flexeril] 10 mg PO TID PRN #20 tablet 07/04/18 Meloxicam [Mobic] 15 mg PO DAILY PRN #20 tablet 07/04/18 - Allergies Allergies/Adverse Reactions: Allergies Allergy/AdvReac Type Severity Reaction Status Date / Time azithromycin Allergy Severe Hives Verified 07/20/18 14:06 haloperidol Allergy Severe Anaphylaxis Verified 07/20/18 14:06 Penicillins Allergy Severe Anaphylaxis Verified 07/20/18 14:06 amoxicillin [Amoxicillin] Allergy Intermediate Rash Verified 07/20/18 14:06 grapefruit Allergy Intermediate Rash Verified 07/20/18 14:06 iodine Allergy Intermediate Rash Verified 07/20/18 14:06 Sulfa (Sulfonamide Allergy Intermediate Rash Verified 07/20/18 14:06 Antibiotics) haloperidol lactate * AdvReac Rash Verified 07/20/18 14:06 [From Haldol] - Social History Does the pt smoke?: Yes Smoking Status: Current every day smoker Does the pt drink ETOH?: Yes Does the pt have substance abuse?: No - Immunizations Immunizations are current?: No Immunizations: TDAP >10years/unknown - POLST Patient has POLST: No PD ED PE NORMAL - Vitals Vital signs reviewed: Yes - General General: Alert and oriented X 3, No acute distress, Well developed/nourished - HEENT HEENT: Atraumatic, Moist mucous membranes, Pharynx benign - Neck Neck: Supple, no meningeal sign, No adenopathy - Cardiac Cardiac: RRR, No murmur - Respiratory Respiratory: Clear bilaterally - Abdomen Abdomen: Soft, Non tender - Female Female : Deferred - Rectal Rectal: Deferred - Back Back: No CVA TTP - Derm Derm: Normal color, Warm and dry - Extremities Extremities: No deformity, No tenderness to palpate, Normal ROM s pain, No edema, No calf tenderness / cord - Neuro Neuro: Alert and oriented X 3, No motor deficit, Normal speech Eye Opening: Spontaneous Motor: Obeys Commands Verbal: Oriented GCS Score: 15 Results - Vitals Vitals: Vital Signs - 24 hr 07/23/18 10:51 Temperature 36.3 C L Heart Rate 100 Respiratory 16 Rate Blood Pressure 124/78 O2 Saturation 97 Oxygen O2 Source [With Activity] Room air O2 Source [Without Activity] Room air O2 Source Room air - EKG (time done) 12:36 Rate: Rate (enter#) (88) Rhythm: NSR [place]: Normal Intervals: Normal CT QRS: Normal Ischemia: Normal ST segments. No: ST elevation c/w ischemia, ST depression - Labs Labs: Laboratory Tests 07/23/18 07/23/18 07/23/18 11:00 11:41 11:41 WBC 11.8 H RBC 4.78 Hgb 13.5 Hct 41.1 MCV 86.1 MCH 28.2 MCHC 32.8 RDW 16.5 H Plt Count 338 MPV 9.5 Neut # (Auto) 4.2 Lymph # (Auto) 5.5 H [place] # (Auto) 1.7 H Eos # (Auto) 0.2 Baso # (Auto) 0.2 H Absolute Nucleated RBC 0.01 Nucleated RBC % 0.1 Manual Slide Review Indicated Platelet Morphology RARE GIANT PLATELETS Sodium 137 Potassium 3.8 Chloride 104 Carbon Dioxide 24 Anion Gap 9.0 BUN 12 Creatinine 0.9 Estimated GFR (MDRD) 65 L Glucose 132 H Calcium 8.8 Total Bilirubin 0.5 AST 32 ALT 18 Alkaline Phosphatase 77 Total Protein 7.3 Albumin 3.7 Globulin 3.6 Albumin/Globulin Ratio 1.0 Lipase 20 L Urine Color YELLOW Urine Clarity CLEAR Urine pH 6.0 Ur Specific [place] <=1.005 Urine Protein NEGATIVE Urine Glucose (UA) NEGATIVE Urine Ketones NEGATIVE Urine Occult Blood NEGATIVE Urine Nitrite NEGATIVE Urine Bilirubin NEGATIVE Urine Urobilinogen 0.2 (NORMAL) Ur Leukocyte Esterase NEGATIVE Ur Microscopic Review NOT INDICATED Urine Culture Comments NOT INDICATED Last Dose Date Last Dose Time Salicylates < 6.0 Urine Opiates Screen NEGATIVE Ur Oxycodone Screen NEGATIVE Urine Methadone Screen NEGATIVE Ur Propoxyphene Screen NEGATIVE Acetaminophen < 10 L Ur Barbiturates Screen NEGATIVE Valproic Acid Ur Tricyclics Screen NEGATIVE Ur Phencyclidine Scrn NEGATIVE Ur Amphetamine Screen NEGATIVE U Methamphetamines Scrn NEGATIVE U Benzodiazepines Scrn NEGATIVE Urine Cocaine Screen NEGATIVE U Cannabinoids Screen NEGATIVE Ethyl Alcohol < 5.0 07/23/18 11:41 WBC RBC Hgb Hct MCV MCH MCHC RDW Plt Count MPV Neut # (Auto) Lymph # (Auto) [place] # (Auto) Eos # (Auto) Baso # (Auto) Absolute Nucleated RBC Nucleated RBC % Manual Slide Review Platelet Morphology Sodium Potassium Chloride Carbon Dioxide Anion Gap BUN Creatinine Estimated GFR (MDRD) Glucose Calcium Total Bilirubin AST ALT Alkaline Phosphatase Total Protein Albumin Globulin Albumin/Globulin Ratio Lipase Urine Color Urine Clarity Urine pH Ur Specific [place] Urine Protein Urine Glucose (UA) Urine Ketones Urine Occult Blood Urine Nitrite Urine Bilirubin Urine Urobilinogen Ur Leukocyte Esterase Ur Microscopic Review Urine Culture Comments Last Dose Date Unknown Last Dose Time Unknown Salicylates Urine Opiates Screen Ur Oxycodone Screen Urine Methadone Screen Ur Propoxyphene Screen Acetaminophen Ur Barbiturates Screen Valproic Acid 81.0 Ur Tricyclics Screen Ur Phencyclidine Scrn Ur Amphetamine Screen U Methamphetamines Scrn U Benzodiazepines Scrn Urine Cocaine Screen U Cannabinoids Screen Ethyl Alcohol PD MEDICAL DECISION MAKING - ED course Complexity details: reviewed results, re-evaluated patient, considered different ial (She is depressed and expressing suicidality. She said she took an overdose of Benadryl last night but does not currently have any anticholinergic symptoms. She is not tachycardic. Her blood tests are okay and so I do not see any acute medical abnormality.), d/w patient Departure - Departure Disposition: 65 Psych Hosp/Unit DC/Xfer Clinical Impression: Suicidal ideation Overdose Qualifiers: Encounter type: initial encounter Injury intent: intentional self-harm Qualified Code(s): T50.902A - Poisoning by unspecified drugs, medicaments and biological substances, intentional self-harm, initial encounter Condition: Stable Record reviewed to determine appropriate education?: Yes
[2018-07-23] MEDS ORDERED: NICOTINE 14 MG PATCH TOP STA (16:52)
[2018-07-23] MEDS ORDERED: LORazepam 0.5 MG TABLET PO STA ×2 (16:52→18:10)
[2018-07-23] MEDS ORDERED: HYDROcod/ACETAM 5/325 MG TABLET PO STA (18:10)
[2018-07-23 19:44] VITALS: BP 109/75
== END 2018-07-23 20:14 ==
LOC: ED 10:46
DX: R45.851 Suicidal ideations (principal); T45.0X2A Poisoning by antiallergic and antiemetic drugs, intentional self-harm, initial encounter; F32.9 Major depressive disorder, single episode, unspecified; F20.9 Schizophrenia, unspecified; F43.10 Post-traumatic stress disorder, unspecified; E11.9 Type 2 diabetes mellitus without complications; F17.200 Nicotine dependence, unspecified, uncomplicated; R53.1 Weakness; M54.9 Dorsalgia, unspecified
CPT/HCPCS: 36415; 80053; 80164; 81003; 83690; 85025; 93005; 99284; 99285; A9270; 80306; 80307; 80320; 80329; 81001; 87086; 99283

== ENCOUNTER 2018-08-02 17:42 | Outpatient (CLI) | payer MEDICARE, MEDICAID | END 2018-08-02 17:43 | disposition critical access hospital (66) | LOC: EMS 17:42 | PROVIDERS: ATTEND Surgery | DX: R44.0 Auditory hallucinations (principal) | CPT/HCPCS: A0425; A0429 ==

== ENCOUNTER 2018-08-02 18:05 | Emergency (ER) | payer MEDICARE, MEDICAID ==
--- NOTE | 2018-08-02 18:11 | ED Physician Documentation ---
<Robert Patterson M - Last Filed: 08/02/18 22:39> PD HPI MHE - Stated complaint Stated Complaint: MHE - History obtained from History obtained from: Patient, EMS - History of Present Illness Primary symptom: Other (53-year-old woman who is very well-known to me in this emergency department. She was off Seroquel and then was restarted it at which point she started having auditory hallucinations directing her to direct traffic [place] [address] [place] very busy intersection. When asked her if she is suicidal or if she wants to get hit by a car she is evasive and does admit softly that the answer is yes. She does not want to be here.) Review of Systems Ten Systems: 10 systems reviewed and negative Constitutional: reports: Reviewed and negative Ears: reports: Reviewed and negative Nose: reports: Reviewed and negative Throat: reports: Reviewed and negative PD PAST MEDICAL HISTORY - Past Medical History Cardiovascular: Angina, Other Respiratory: COPD, Pneumonia Neuro: Seizure disorder Endocrine/Autoimmune: Type 2 diabetes GI: GERD, Hiatal hernia THERMODYNAMIC PHYSICIST: None : None HEENT: None Psych: Depression, Schizophrenia, Post traumatic stress disorder Musculoskeletal: None Derm: None - Past Surgical History Past Surgical History: Yes General: Bowel surgery Ortho: Other /THERMODYNAMIC PHYSICIST: 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 HEENT: Cataracts - Present Medications Home Medications: Ambulatory Orders Medication Instructions Recorded Confirmed Divalproex ER [Depakote ER] 500 mg PO BID 12/25/16 08/03/18 Sucralfate 1 gm PO DAILY 02/15/18 08/03/18 clonazePAM [Clonazepam] 1 mg PO BID 04/13/18 08/03/18 Albuterol Sulf [Ventolin Hfa 1 - 2 puffs INH Q4HR PRN #1 inhaler 05/16/18 08/03/18 Inhaler] Ondansetron Odt [Zofran] 4 mg TL Q6H PRN #10 tablet 05/16/18 08/03/18 guaiFENesin/DEXTROMETHORPHAN 10 ml PO Q6H PRN #120 ml 06/06/18 08/03/18 [Robitussin Dm] Cyclobenzaprine [Flexeril] 10 mg PO TID PRN #20 tablet 07/04/18 08/03/18 Meloxicam [Mobic] 15 mg PO DAILY PRN #20 tablet 07/04/18 08/03/18 QUEtiapine [SEROquel] 150 mg PO BID 08/03/18 08/03/18 Ranitidine HCl [Acid Youth Teacher] 150 mg PO BID 08/03/18 08/03/18 - Allergies Allergies/Adverse Reactions: Allergies Allergy/AdvReac Type Severity Reaction Status Date / Time azithromycin Allergy Severe Hives Verified 08/03/18 02:59 haloperidol Allergy Severe Anaphylaxis Verified 08/03/18 02:59 Penicillins Allergy Severe Anaphylaxis Verified 08/03/18 02:59 amoxicillin [Amoxicillin] Allergy Intermediate Rash Verified 08/03/18 02:59 grapefruit Allergy Intermediate Rash Verified 08/03/18 02:59 iodine Allergy Intermediate Rash Verified 08/03/18 02:59 Sulfa (Sulfonamide Allergy Intermediate Rash Verified 08/03/18 02:59 Antibiotics) haloperidol lactate * AdvReac Rash Verified 08/03/18 02:59 [From Haldol] - Social History Does the pt smoke?: Yes Smoking Status: Current every day smoker Does the pt drink ETOH?: Yes Does the pt have substance abuse?: No - Family History Family history: reports: Non contributory - Immunizations Immunizations are current?: No Immunizations: TDAP >10years/unknown - POLST Patient has POLST: No PD ED PE NORMAL - Vitals Vital signs reviewed: Yes - General General: Alert and oriented X 3, No acute distress - HEENT HEENT: PERRL, EOMI, Pharynx benign - Neck Neck: Supple, no meningeal sign, No bony TTP - Cardiac Cardiac: RRR, No murmur - Respiratory Respiratory: No respiratory distress, Clear bilaterally - Abdomen Abdomen: Normal bowel sounds, Soft, Non tender - Back Back: No CVA TTP, No spinal TTP - Derm Derm: Normal color, Warm and dry - Extremities Extremities: No edema, No calf tenderness / cord - Neuro Neuro: Alert and oriented X 3, Normal speech Eye Opening: Spontaneous Motor: Obeys Commands Verbal: Oriented GCS Score: 15 Results - Vitals Vitals: Vital Signs - 24 hr 08/02/18 08/02/18 08/03/18 18:17 21:25 00:18 Temperature 36.8 C Heart Rate 90 88 77 Respiratory 17 18 16 Rate Blood Pressure 138/85 H 136/86 H 109/58 L O2 Saturation 99 100 98 08/03/18 02:38 Temperature 36.5 C Heart Rate 75 Respiratory 16 Rate Blood Pressure 136/95 H O2 Saturation 100 Oxygen O2 Source [] Room air O2 Source [] Room air O2 Source Room air - Labs Labs: Laboratory Tests 08/02/18 08/02/18 08/02/18 18:10 18:30 18:30 WBC 11.2 H RBC 4.81 Hgb 13.4 Hct 42.0 MCV 87.1 MCH 27.8 MCHC 31.9 L RDW 16.4 H Plt Count 317 MPV 9.1 Neut # (Auto) 5.2 Lymph # (Auto) 4.2 H [place] # (Auto) 1.5 H Eos # (Auto) 0.2 Baso # (Auto) 0.1 Absolute Nucleated RBC 0.02 Nucleated RBC % 0.2 Sodium 139 Potassium 3.8 Chloride 104 Carbon Dioxide 26 Anion Gap 9.0 BUN 17 Creatinine 0.9 Estimated GFR (MDRD) 65 L Glucose 92 Calcium 8.9 Total Bilirubin 0.5 AST 20 ALT 18 Alkaline Phosphatase 72 Total Protein 7.3 Albumin 3.8 Globulin 3.5 Albumin/Globulin Ratio 1.1 Lipase 17 L Urine Color YELLOW Urine Clarity CLEAR Urine pH 6.0 Ur Specific [place] 1.010 Urine Protein NEGATIVE Urine Glucose (UA) NEGATIVE Urine Ketones NEGATIVE Urine Occult Blood NEGATIVE Urine Nitrite NEGATIVE Urine Bilirubin NEGATIVE Urine Urobilinogen 0.2 (NORMAL) Ur Leukocyte Esterase NEGATIVE Ur Microscopic Review NOT INDICATED Urine Culture Comments NOT INDICATED Last Dose Date Last Dose Time Salicylates Urine Opiates Screen NEGATIVE Ur Oxycodone Screen NEGATIVE Urine Methadone Screen NEGATIVE Ur Propoxyphene Screen NEGATIVE Acetaminophen Ur Barbiturates Screen NEGATIVE Valproic Acid Ur Tricyclics Screen POSITIVE H Ur Phencyclidine Scrn NEGATIVE Ur Amphetamine Screen NEGATIVE U Methamphetamines Scrn NEGATIVE U Benzodiazepines Scrn NEGATIVE Urine Cocaine Screen NEGATIVE U Cannabinoids Screen NEGATIVE Ethyl Alcohol < 5.0 08/02/18 08/02/18 18:30 18:30 WBC RBC Hgb Hct MCV MCH MCHC RDW Plt Count MPV Neut # (Auto) Lymph # (Auto) [place] # (Auto) Eos # (Auto) Baso # (Auto) Absolute Nucleated RBC Nucleated RBC % Sodium Potassium Chloride Carbon Dioxide Anion Gap BUN Creatinine Estimated GFR (MDRD) Glucose Calcium Total Bilirubin AST ALT Alkaline Phosphatase Total Protein Albumin Globulin Albumin/Globulin Ratio Lipase Urine Color Urine Clarity Urine pH Ur Specific [place] Urine Protein Urine Glucose (UA) Urine Ketones Urine Occult Blood Urine Nitrite Urine Bilirubin Urine Urobilinogen Ur Leukocyte Esterase Ur Microscopic Review Urine Culture Comments Last Dose Date UNKNOWN Last Dose Time UNKNOWN Salicylates < 6.0 Urine Opiates Screen Ur Oxycodone Screen Urine Methadone Screen Ur Propoxyphene Screen Acetaminophen < 10 L Ur Barbiturates Screen Valproic Acid 44.0 Ur Tricyclics Screen Ur Phencyclidine Scrn Ur Amphetamine Screen U Methamphetamines Scrn U Benzodiazepines Scrn Urine Cocaine Screen U Cannabinoids Screen Ethyl Alcohol PD MEDICAL DECISION MAKING - ED course ED course: Sign Out received from Dr. Arciniega regarding the patient who needs to be transferred out for higher level of care for psychiatric services. Earlier in the evening patient is loud and talking to the staff. She sometimes would step out of her room and walk around requiring guidance to go back to the room. Patient did not require any physical or chemical restraints.She has been sleeping most of the night. Patient was accepted to [facility] to [facility] And transfer forms were filled. Departure - Departure Disposition: 65 Psych Hosp/Unit DC/Xfer Clinical Impression: Acute psychosis Condition: Stable <Soha Mosley - Last Filed: 08/03/18 05:46> Results - Vitals Vitals: Vital Signs - 24 hr 08/02/18 08/02/18 08/03/18 18:17 21:25 00:18 Temperature 36.8 C Heart Rate 90 88 77 Respiratory 17 18 16 Rate Blood Pressure 138/85 H 136/86 H 109/58 L O2 Saturation 99 100 98 08/03/18 02:38 Temperature 36.5 C Heart Rate 75 Respiratory 16 Rate Blood Pressure 136/95 H O2 Saturation 100 Oxygen O2 Source [] Room air O2 Source [] Room air O2 Source Room air - EKG (time done) 0233 Rate: Rate (enter#) Rhythm: NSR [place]: LAD Intervals: Normal [place] QRS: Normal Ischemia: Non specific changes Other comments: Other comments (Artifacts.Machine is reading the EKG is atrial fibrillation which I disagree as patient has regular P and MI. The machine was picking up the artifacts.) - Labs Labs: Laboratory Tests 08/02/18 08/02/18 08/02/18 18:10 18:30 18:30 WBC 11.2 H RBC 4.81 Hgb 13.4 Hct 42.0 MCV 87.1 MCH 27.8 MCHC 31.9 L RDW 16.4 H Plt Count 317 MPV 9.1 Neut # (Auto) 5.2 Lymph # (Auto) 4.2 H [place] # (Auto) 1.5 H Eos # (Auto) 0.2 Baso # (Auto) 0.1 Absolute Nucleated RBC 0.02 Nucleated RBC % 0.2 Sodium 139 Potassium 3.8 Chloride 104 Carbon Dioxide 26 Anion Gap 9.0 BUN 17 Creatinine 0.9 Estimated GFR (MDRD) 65 L Glucose 92 Calcium 8.9 Total Bilirubin 0.5 AST 20 ALT 18 Alkaline Phosphatase 72 Total Protein 7.3 Albumin 3.8 Globulin 3.5 Albumin/Globulin Ratio 1.1 Lipase 17 L Urine Color YELLOW Urine Clarity CLEAR Urine pH 6.0 Ur Specific [place] 1.010 Urine Protein NEGATIVE Urine Glucose (UA) NEGATIVE Urine Ketones NEGATIVE Urine Occult Blood NEGATIVE Urine Nitrite NEGATIVE Urine Bilirubin NEGATIVE Urine Urobilinogen 0.2 (NORMAL) Ur Leukocyte Esterase NEGATIVE Ur Microscopic Review NOT INDICATED Urine Culture Comments NOT INDICATED Last Dose Date Last Dose Time Salicylates Urine Opiates Screen NEGATIVE Ur Oxycodone Screen NEGATIVE Urine Methadone Screen NEGATIVE Ur Propoxyphene Screen NEGATIVE Acetaminophen Ur Barbiturates Screen NEGATIVE Valproic Acid Ur Tricyclics Screen POSITIVE H Ur Phencyclidine Scrn NEGATIVE Ur Amphetamine Screen NEGATIVE U Methamphetamines Scrn NEGATIVE U Benzodiazepines Scrn NEGATIVE Urine Cocaine Screen NEGATIVE U Cannabinoids Screen NEGATIVE Ethyl Alcohol < 5.0 08/02/18 08/02/18 18:30 18:30 WBC RBC Hgb Hct MCV MCH MCHC RDW Plt Count MPV Neut # (Auto) Lymph # (Auto) [place] # (Auto) Eos # (Auto) Baso # (Auto) Absolute Nucleated RBC Nucleated RBC % Sodium Potassium Chloride Carbon Dioxide Anion Gap BUN Creatinine Estimated GFR (MDRD) Glucose Calcium Total Bilirubin AST ALT Alkaline Phosphatase Total Protein Albumin Globulin Albumin/Globulin Ratio Lipase Urine Color Urine Clarity Urine pH Ur Specific [place] Urine Protein Urine Glucose (UA) Urine Ketones Urine Occult Blood Urine Nitrite Urine Bilirubin Urine Urobilinogen Ur Leukocyte Esterase Ur Microscopic Review Urine Culture Comments Last Dose Date UNKNOWN Last Dose Time UNKNOWN Salicylates < 6.0 Urine Opiates Screen Ur Oxycodone Screen Urine Methadone Screen Ur Propoxyphene Screen Acetaminophen < 10 L Ur Barbiturates Screen Valproic Acid 44.0 Ur Tricyclics Screen Ur Phencyclidine Scrn Ur Amphetamine Screen U Methamphetamines Scrn U Benzodiazepines Scrn Urine Cocaine Screen U Cannabinoids Screen Ethyl Alcohol PD MEDICAL DECISION MAKING - ED course ED course: Sign Out received from Dr. Arciniega regarding the patient who needs to be transferred out for higher level of care for psychiatric services. Earlier in the evening patient is loud and talking to the staff. She sometimes would step out of her room and walk around requiring guidance to go back to the room. Patient did not require any physical or chemical restraints.She has been sleeping most of the night. Patient was accepted to [facility] to [facility] And transfer forms were filled.
[2018-08-02] MEDS ORDERED: OLANZapine ODT 5 MG TABLET TL STA ×2 (18:16→18:27)
[2018-08-02 18:46] LABS: BASOPHILS # (AUTO) 0.1 10^3/uL (0.0-0.1); BASOPHILS % (AUTO) 0.6 %; EOSINOPHILS # (AUTO) 0.2 10^3/uL (0.0-0.7); EOSINOPHILS % (AUTO) 1.4 %; HGB - HEMOGLOBIN 13.4 g/dL (12.0-16.0); LYMPHOCYTES # (AUTO) 4.2 10^3/uL (1.5-3.5); LYMPHOCYTES % (AUTO) 37.9 %; MEAN CORPUSCULAR HEMOGLOBIN 27.8 pg (27.0-31.0); MEAN CORPUSCULAR HGB CONC 31.9 g/dL (32.0-36.0); MEAN CORPUSCULAR VOLUME 87.1 fL (81.0-99.0); MEAN PLATELET VOLUME 9.1 fL (7.9-10.8); MONOCYTES # (AUTO) 1.5 10^3/uL (0.0-1.0); MONOCYTES % (AUTO) 13.2 %; NEUTROPHILS # (AUTO) 5.2 10^3/uL (1.5-6.6); NEUTROPHILS % (AUTO) 46.9 %; PLT - PLATELET COUNT 317 10^3/uL (130-450); RED BLOOD COUNT 4.81 10^6/uL (4.20-5.40); RED CELL DISTRIBUTION WIDTH 16.4 % (12.0-15.0); WHITE BLOOD COUNT 11.2 x10^3/uL (4.8-10.8)
[2018-08-02 18:47] LABS: MUDS CUTOFF CONCENTRATIONS CUTOFF CONC BELOW:
[2018-08-02 18:55] LABS: BILIRUBIN,URINE NEGATIVE (NEGATIVE); GLUCOSE, URINE (UA) NEGATIVE (NEGATIVE); KETONES,URINE (UA) NEGATIVE (NEGATIVE); LEUKOCYTE ESTERASE, URINE NEGATIVE (NEGATIVE); NITRITE,URINE NEGATIVE (NEGATIVE); OCCULT BLOOD,URINE NEGATIVE (NEGATIVE); PROTEIN,URINE NEGATIVE (NEGATIVE); UROBILINOGEN,URINE 0.2 (NORMAL) E.U./dL (NORMAL)
[2018-08-02 18:58] LABS: CLARITY,URINE CLEAR (CLEAR)
[2018-08-02 19:02] LABS: ALBUMIN 3.8 g/dL (3.2-5.5); ALBUMIN/GLOBULIN RATIO 1.1 (1.0-2.2); ALKALINE PHOSPHATASE 72 IU/L (42-121); ALT ALANINE AMINOTRANSFERASE 18 IU/L (10-60); AST ASPARTATE AMINOTRANSFERASE 20 IU/L (10-42); BILIRUBIN,TOTAL 0.5 mg/dL (0.2-1.0); BUN - BLOOD UREA NITROGEN 17 mg/dL (6-20); CALCIUM 8.9 mg/dL (8.5-10.3); CARBON DIOXIDE - CO2 26 mmol/L (21-32); CHLORIDE 104 mmol/L (101-111); CREATININE 0.9 mg/dL (0.4-1.0); GFR - MDRD 65 (>89); GLUCOSE 92 mg/dL (70-100); LIPASE 17 U/L (22-51); SODIUM 139 mmol/L (135-145); TOTAL PROTEIN 7.3 g/dL (6.7-8.2)
[2018-08-02 19:03] LABS: ACETAMINOPHEN < 10 ug/mL (10-30); SALICYLATE < 6.0 mg/dL
[2018-08-02 19:09] LABS: AMPHETAMINE SCREEN,URINE NEGATIVE (NEGATIVE); BENZODIAZEPINES SCREEN, URINE NEGATIVE (NEGATIVE); COCAINE SCREEN URINE NEGATIVE (NEGATIVE); METHADONE SCREEN, URINE NEGATIVE (NEGATIVE); METHAMPHETAMINES SCREEN, URINE NEGATIVE (NEGATIVE); OPIATE SCREEN, URINE NEGATIVE (NEGATIVE); OXYCODONE SCREEN, URINE NEGATIVE (NEGATIVE); PROPOXYPHENE SCREEN, URINE NEGATIVE (NEGATIVE); TRICYCLIC ANTIDEPRESSANT,URINE POSITIVE (NEGATIVE)
[2018-08-02] MEDS ORDERED: LORazepam 2 MG/ML VIAL IM STA (20:28)
[2018-08-02] MEDS ORDERED: HYDROcod/ACETAM 5/325 MG TABLET PO STA (22:28)
--- NOTE | 2018-08-03 07:39 | ED Physician Documentation ---
History of Present Illness - Stated complaint Stated Complaint: MHE - Chief complaint Chief Complaint: MHE PD PAST MEDICAL HISTORY - Past Medical History Cardiovascular: Angina, Other Respiratory: COPD, Pneumonia Neuro: Seizure disorder Endocrine/Autoimmune: Type 2 diabetes GI: GERD, Hiatal hernia TALLIER: None : None HEENT: None Psych: Depression, Schizophrenia, Post traumatic stress disorder Musculoskeletal: None Derm: None - Past Surgical History Past Surgical History: Yes General: Bowel surgery Ortho: Other /TALLIER: 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 HEENT: Cataracts - Present Medications Home Medications: Ambulatory Orders Medication Instructions Recorded Confirmed Divalproex ER [Depakote ER] 500 mg PO BID 12/25/16 08/03/18 Sucralfate 1 gm PO DAILY 02/15/18 08/03/18 clonazePAM [Clonazepam] 1 mg PO BID 04/13/18 08/03/18 Albuterol Sulf [Ventolin Hfa 1 - 2 puffs INH Q4HR PRN #1 inhaler 05/16/18 08/03/18 Inhaler] Ondansetron Odt [Zofran] 4 mg TL Q6H PRN #10 tablet 05/16/18 08/03/18 guaiFENesin/DEXTROMETHORPHAN 10 ml PO Q6H PRN #120 ml 06/06/18 08/03/18 [Robitussin Dm] Cyclobenzaprine [Flexeril] 10 mg PO TID PRN #20 tablet 07/04/18 08/03/18 Meloxicam [Mobic] 15 mg PO DAILY PRN #20 tablet 07/04/18 08/03/18 QUEtiapine [SEROquel] 150 mg PO BID 08/03/18 08/03/18 Ranitidine HCl [Acid [employer]] 150 mg PO BID 08/03/18 08/03/18 - Allergies Allergies/Adverse Reactions: Allergies Allergy/AdvReac Type Severity Reaction Status Date / Time azithromycin Allergy Severe Hives Verified 08/03/18 02:59 haloperidol Allergy Severe Anaphylaxis Verified 08/03/18 02:59 Penicillins Allergy Severe Anaphylaxis Verified 08/03/18 02:59 amoxicillin [Amoxicillin] Allergy Intermediate Rash Verified 08/03/18 02:59 grapefruit Allergy Intermediate Rash Verified 08/03/18 02:59 iodine Allergy Intermediate Rash Verified 08/03/18 02:59 Sulfa (Sulfonamide Allergy Intermediate Rash Verified 08/03/18 02:59 Antibiotics) haloperidol lactate * AdvReac Rash Verified 08/03/18 02:59 [From Haldol] - Social History Does the pt smoke?: Yes Smoking Status: Current every day smoker Does the pt drink ETOH?: Yes Does the pt have substance abuse?: No - Immunizations Immunizations are current?: No Immunizations: TDAP >10years/unknown - POLST Patient has POLST: No Results - Vitals Vitals: Vital Signs - 24 hr 08/02/18 08/02/18 08/03/18 18:17 21:25 00:18 Temperature 36.8 C Heart Rate 90 88 77 Respiratory 17 18 16 Rate Blood Pressure 138/85 H 136/86 H 109/58 L O2 Saturation 99 100 98 08/03/18 08/03/18 08/03/18 02:38 06:49 09:12 Temperature 36.5 C 36.5 C Heart Rate 75 70 88 Respiratory 16 18 16 Rate Blood Pressure 136/95 H 135/88 H 137/84 H O2 Saturation 100 99 95 Oxygen O2 Source [] Room air O2 Source [] Room air O2 Source Room air - Labs Labs: Laboratory Tests 08/02/18 08/02/18 08/02/18 18:10 18:30 18:30 WBC 11.2 H RBC 4.81 Hgb 13.4 Hct 42.0 MCV 87.1 MCH 27.8 MCHC 31.9 L RDW 16.4 H Plt Count 317 MPV 9.1 Neut # (Auto) 5.2 Lymph # (Auto) 4.2 H Dodge # (Auto) 1.5 H Eos # (Auto) 0.2 Baso # (Auto) 0.1 Absolute Nucleated RBC 0.02 Nucleated RBC % 0.2 Sodium 139 Potassium 3.8 Chloride 104 Carbon Dioxide 26 Anion Gap 9.0 BUN 17 Creatinine 0.9 Estimated GFR (MDRD) 65 L Glucose 92 Calcium 8.9 Total Bilirubin 0.5 AST 20 ALT 18 Alkaline Phosphatase 72 Total Protein 7.3 Albumin 3.8 Globulin 3.5 Albumin/Globulin Ratio 1.1 Lipase 17 L Urine Color YELLOW Urine Clarity CLEAR Urine pH 6.0 Ur Specific Dow 1.010 Urine Protein NEGATIVE Urine Glucose (UA) NEGATIVE Urine Ketones NEGATIVE Urine Occult Blood NEGATIVE Urine Nitrite NEGATIVE Urine Bilirubin NEGATIVE Urine Urobilinogen 0.2 (NORMAL) Ur Leukocyte Esterase NEGATIVE Ur Microscopic Review NOT INDICATED Urine Culture Comments NOT INDICATED Last Dose Date Last Dose Time Salicylates Urine Opiates Screen NEGATIVE Ur Oxycodone Screen NEGATIVE Urine Methadone Screen NEGATIVE Ur Propoxyphene Screen NEGATIVE Acetaminophen Ur Barbiturates Screen NEGATIVE Valproic Acid Ur Tricyclics Screen POSITIVE H Ur Phencyclidine Scrn NEGATIVE Ur Amphetamine Screen NEGATIVE U Methamphetamines Scrn NEGATIVE U Benzodiazepines Scrn NEGATIVE Urine Cocaine Screen NEGATIVE U Cannabinoids Screen NEGATIVE Ethyl Alcohol < 5.0 08/02/18 08/02/18 18:30 18:30 WBC RBC Hgb Hct MCV MCH MCHC RDW Plt Count MPV Neut # (Auto) Lymph # (Auto) Dodge # (Auto) Eos # (Auto) Baso # (Auto) Absolute Nucleated RBC Nucleated RBC % Sodium Potassium Chloride Carbon Dioxide Anion Gap BUN Creatinine Estimated GFR (MDRD) Glucose Calcium Total Bilirubin AST ALT Alkaline Phosphatase Total Protein Albumin Globulin Albumin/Globulin Ratio Lipase Urine Color Urine Clarity Urine pH Ur Specific Dow Urine Protein Urine Glucose (UA) Urine Ketones Urine Occult Blood Urine Nitrite Urine Bilirubin Urine Urobilinogen Ur Leukocyte Esterase Ur Microscopic Review Urine Culture Comments Last Dose Date UNKNOWN Last Dose Time UNKNOWN Salicylates < 6.0 Urine Opiates Screen Ur Oxycodone Screen Urine Methadone Screen Ur Propoxyphene Screen Acetaminophen < 10 L Ur Barbiturates Screen Valproic Acid 44.0 Ur Tricyclics Screen Ur Phencyclidine Scrn Ur Amphetamine Screen U Methamphetamines Scrn U Benzodiazepines Scrn Urine Cocaine Screen U Cannabinoids Screen Ethyl Alcohol PD MEDICAL DECISION MAKING - ED course ED course: assumed care 7 AM 53 f known mental helth pt to ED with psychosis medically clear per adoption social worker Dr Mosley pt was seen by [facility] and is detained and accepted for inpt mental health and transport should arrive 9 AM went to see pt she is awake and agitated tryign to leave the ER states she won't get in the ambulance states she is going to jump into traffic when I speak directly to her she is enaged RRR CTAB gave ativan EMS arrived and pt was transported for inpt mental health Departure - Departure Disposition: 65 Psych Hosp/Unit DC/Xfer Clinical Impression: Acute psychosis Condition: Stable
[2018-08-03] MEDS ORDERED: LORazepam 0.5 MG TABLET PO STA (08:12)
[2018-08-03 09:14] VITALS: BP 137/84
== END 2018-08-03 10:07 ==
LOC: EDUNIT# → ED 18:05
DX: F29 Unspecified psychosis not due to a substance or known physiological condition (principal); I48.91 Unspecified atrial fibrillation; F20.9 Schizophrenia, unspecified; F43.10 Post-traumatic stress disorder, unspecified; F32.9 Major depressive disorder, single episode, unspecified; E11.9 Type 2 diabetes mellitus without complications; F17.200 Nicotine dependence, unspecified, uncomplicated
CPT/HCPCS: 36415; 80053; 80164; 81003; 83690; 85025; 93005; 96372; 99285; A9270; J2060; 80306; 80307; 80320; 80329; 81001; 87086; 99284

== ENCOUNTER 2018-08-14 18:27 | Emergency (ER) | payer MEDICARE, MEDICAID ==
[2018-08-14 19:19] LABS: BASOPHILS # (AUTO) 0.1 10^3/uL (0.0-0.1); EOSINOPHILS # (AUTO) 0.3 10^3/uL (0.0-0.7); EOSINOPHILS % (AUTO) 2.2 %; HGB - HEMOGLOBIN 12.7 g/dL (12.0-16.0); LYMPHOCYTES # (AUTO) 5.2 10^3/uL (1.5-3.5); LYMPHOCYTES % (AUTO) 40.2 %; MEAN CORPUSCULAR HEMOGLOBIN 28.1 pg (27.0-31.0); MEAN CORPUSCULAR HGB CONC 32.3 g/dL (32.0-36.0); MEAN PLATELET VOLUME 9.4 fL (7.9-10.8); MONOCYTES # (AUTO) 1.7 10^3/uL (0.0-1.0); MONOCYTES % (AUTO) 13.3 %; NEUTROPHILS # (AUTO) 5.6 10^3/uL (1.5-6.6); NEUTROPHILS % (AUTO) 43.3 %; PLT - PLATELET COUNT 319 10^3/uL (130-450); RED CELL DISTRIBUTION WIDTH 17.4 % (12.0-15.0)
[2018-08-14 19:24] LABS: ALBUMIN 3.5 g/dL (3.2-5.5); ALBUMIN/GLOBULIN RATIO 1.1 (1.0-2.2); BILIRUBIN,TOTAL 0.4 mg/dL (0.2-1.0); CALCIUM 8.8 mg/dL (8.5-10.3); CREATININE 0.9 mg/dL (0.4-1.0); TOTAL PROTEIN 6.7 g/dL (6.7-8.2)
[2018-08-14 19:40] LABS: PLATELET ESTIMATE, MANUAL DECREASED (<130,000) (NORMAL); PLATELET MORPHOLOGY NORMAL APPEARANCE (NORMAL)
--- NOTE | 2018-08-14 20:10 | XRAY Report ---
Reason: chest pain Procedure Date: 08/14/2018 Accession Number: [id number] / [id number] Procedure: XR - Chest 1 View X-Ray CPT Code: 09147 FULL RESULT: EXAM: CHEST RADIOGRAPHY EXAM DATE: 08/14/2018 07:50 PM. CLINICAL HISTORY: Chest pain. COMPARISON: CHEST 2 VIEW 06/06/2018 5:19 PM. TECHNIQUE: 1 view. FINDINGS: Lungs/Pleura: No focal opacities evident. No pleural effusion. No pneumothorax. Mediastinum: Within exam limitations, the cardiomediastinal contour is normal. Other: None. IMPRESSION: Normal single view chest. RADIA
--- NOTE | 2018-08-14 20:19 | ED Physician Documentation ---
History of Present Illness - Stated complaint Stated Complaint: UPPER BACK PAIN/NUMBNESS - Chief complaint Chief Complaint: General - History obtained from History obtained from: Patient - History of Present Illness Timing: How many days ago (2) Improved by: no ameliorating factors Worsened by: no exacerbating factors - Additonal information Additional information: c/o chest pain x 2 days, constant. Pain radiates down "entire left side" (per patient); she clarifies that the pain goes down both LUE, LLE, and left side of back with numbness. Review of Systems Constitutional: denies: Fever Cardiac: reports: Chest pain / pressure. denies: Palpitations Respiratory: reports: Reviewed and negative GI: denies: Abdominal Pain, Nausea, Vomiting Musculoskeletal: reports: Back pain. denies: Extremity swelling Neurologic: reports: Numbness (paresthesias LUE and LLE). denies: Generalized weakness, Focal weakness PD PAST MEDICAL HISTORY - Past Medical History Past Medical History: Yes Cardiovascular: Angina, Other Respiratory: COPD, Pneumonia Neuro: Seizure disorder Endocrine/Autoimmune: Type 2 diabetes GI: GERD, Hiatal hernia FRENCH FOLDER: None : None HEENT: None Psych: Depression, Schizophrenia, Post traumatic stress disorder Musculoskeletal: None Derm: None - Past Surgical History Past Surgical History: Yes General: Bowel surgery Ortho: Other /FRENCH FOLDER: 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 HEENT: Cataracts - Present Medications Home Medications: Ambulatory Orders Medication Instructions Recorded Confirmed Divalproex ER [Depakote ER] 500 mg PO BID 12/25/16 08/03/18 Albuterol Sulf [Ventolin Hfa 1 - 2 puffs INH Q4HR PRN #1 inhaler 05/16/18 08/03/18 Inhaler] QUEtiapine [SEROquel] 150 mg PO BID 08/03/18 08/03/18 Mirtazapine [Remeron] 0 mg 08/14/18 - Allergies Allergies/Adverse Reactions: Allergies Allergy/AdvReac Type Severity Reaction Status Date / Time azithromycin Allergy Severe Hives Verified 08/14/18 18:42 haloperidol Allergy Severe Anaphylaxis Verified 08/14/18 18:42 Penicillins Allergy Severe Anaphylaxis Verified 08/14/18 18:42 amoxicillin [Amoxicillin] Allergy Intermediate Rash Verified 08/14/18 18:42 grapefruit Allergy Intermediate Rash Verified 08/14/18 18:42 iodine Allergy Intermediate Rash Verified 08/14/18 18:42 Sulfa (Sulfonamide Allergy Intermediate Rash Verified 08/14/18 18:42 Antibiotics) haloperidol lactate * AdvReac Rash Verified 08/14/18 18:42 [From Haldol] - Social History Does the pt smoke?: Yes Smoking Status: Current every day smoker Does the pt drink ETOH?: No Does the pt have substance abuse?: No - Immunizations Immunizations are current?: No Immunizations: TDAP >10years/unknown - POLST Patient has POLST: No PD ED PE NORMAL - Vitals Vital signs reviewed: Yes - General General: Alert and oriented X 3, No acute distress, Well developed/nourished - HEENT HEENT: Moist mucous membranes - Cardiac Cardiac: RRR, No murmur, No gallop, No rub - Respiratory Respiratory: No respiratory distress, Clear bilaterally - Abdomen Abdomen: Soft, Non tender - Derm Derm: Normal color, Warm and dry - Extremities Extremities: No edema Results - Vitals Vitals: Vital Signs - 24 hr 08/14/18 08/14/18 08/14/18 18:28 19:05 22:09 Temperature 36.7 C 36.5 C Heart Rate 96 92 87 Respiratory 20 16 18 Rate Blood Pressure 144/91 H 146/86 H 142/77 H O2 Saturation 97 94 96 Oxygen O2 Source [] Room air O2 Source [] Room air O2 Source Room air - EKG (time done) No standard instances Rate: Rate (enter#) (98) Rhythm: NSR [place]: LAD, Anterior hemiblock Intervals: Normal UT QRS: Normal Ischemia: Normal ST segments - Labs Labs: Laboratory Tests 08/14/18 08/14/18 08/14/18 18:53 18:53 18:53 WBC 13.0 H RBC 4.50 Hgb 12.7 Hct 39.1 MCV 87.0 MCH 28.1 MCHC 32.3 RDW 17.4 H Plt Count 319 MPV 9.4 Neut # (Auto) 5.6 Lymph # (Auto) 5.2 H [place] # (Auto) 1.7 H Eos # (Auto) 0.3 Baso # (Auto) 0.1 Absolute Nucleated RBC 0.01 Nucleated RBC % 0.1 Manual Slide Review Indicated WBC Morphology NORMAL APPEARANCE Platelet Estimate DECREASED (<130,000) Platelet Morphology NORMAL APPEARANCE RBC Morph Micro Appear 1+ TARGET CELLS Sodium 139 Potassium 3.6 Chloride 106 Carbon Dioxide 24 Anion Gap 9.0 BUN 11 Creatinine 0.9 Estimated GFR (MDRD) 65 L Glucose 91 Calcium 8.8 Total Bilirubin 0.4 AST 19 ALT 14 Alkaline Phosphatase 62 Troponin I < 0.04 Total Protein 6.7 Albumin 3.5 Globulin 3.2 Albumin/Globulin Ratio 1.1 Lipase 18 L - Rads (name of study) chest xray Radiology: Prelim report reviewed, See rad report PD MEDICAL DECISION MAKING - ED course Complexity details: reviewed old records, reviewed results, re-evaluated patient, considered differential, d/w patient ED course: Patient well known to this ED for multiple visits, usually for pain c/o. She requests "something for the pain" several times during HPI and exam. Given IV toradol, and PO flexeril and vicodin. She reported inadequate pain relief. Given lidocaine patch and discharged. Patient was comfortable with this plan and she did not bargain or argue regarding further medications. Departure - Departure Disposition: 01 Home, Self Care Clinical Impression: Chest pain Condition: Good Instructions: ED Chest Pain Atypical Unkn Cause Follow-Up: Deandre Herrera MD [Primary Care Provider] - Discharge Date/Time: 08/14/18 22:10
[2018-08-14] MEDS ORDERED: HYDROcod/ACETAM 5/325 MG TABLET PO STA (20:28)
[2018-08-14] MEDS ORDERED: KETOROLAC 60 MG/2 ML VIAL IVP STA (20:28)
[2018-08-14] MEDS ORDERED: CYCLOBENZAPRINE 10 MG TABLET PO STA (20:29)
[2018-08-14] MEDS ORDERED: LIDOCAINE PATCH 5% TOP STA (21:58)
[2018-08-14 22:10] VITALS: BP 142/77
== END 2018-08-14 22:10 | disposition home or self-care (01) ==
LOC: EDUNIT# → ED 18:27
DX: R07.9 Chest pain, unspecified (principal); R94.31 Abnormal electrocardiogram [ECG] [EKG]; E11.9 Type 2 diabetes mellitus without complications; F17.200 Nicotine dependence, unspecified, uncomplicated
CPT/HCPCS: 36415; 71045; 80053; 83690; 84484; 85025; 93005; 96374; 99283; 99284; A9270

== ENCOUNTER 2018-08-23 21:09 | Outpatient (CLI) | payer MEDICARE, MEDICAID | END 2018-08-23 21:10 | disposition EMS.NT | LOC: EMS 21:09 | PROVIDERS: ATTEND Surgery | DX: Z03.89 Encounter for observation for other suspected diseases and conditions ruled out (principal) ==

== ENCOUNTER 2018-08-27 16:40 | Outpatient (CLI) | payer MEDICARE, MEDICAID | END 2018-08-27 16:41 | disposition critical access hospital (66) | LOC: EMS 16:40 | PROVIDERS: ATTEND Surgery | DX: S41.119A Laceration without foreign body of unspecified upper arm, initial encounter (principal); X78.1XXA Intentional self-harm by knife, initial encounter; Y92.009 Unspecified place in unspecified non-institutional (private) residence as the place of occurrence of the external cause | CPT/HCPCS: A0425; A0429 ==

== ENCOUNTER 2018-08-27 17:00 | Emergency (ER) | payer MEDICARE, MEDICAID ==
[2018-08-27 17:31] LABS: MUDS CUTOFF CONCENTRATIONS CUTOFF CONC BELOW:
[2018-08-27 17:33] LABS: BILIRUBIN,URINE NEGATIVE (NEGATIVE); GLUCOSE, URINE (UA) NEGATIVE (NEGATIVE); KETONES,URINE (UA) NEGATIVE (NEGATIVE); LEUKOCYTE ESTERASE, URINE NEGATIVE (NEGATIVE); NITRITE,URINE NEGATIVE (NEGATIVE); OCCULT BLOOD,URINE NEGATIVE (NEGATIVE); PH,URINE 6.5 PH (5.0-7.5); PROTEIN,URINE NEGATIVE (NEGATIVE); UROBILINOGEN,URINE 0.2 (NORMAL) E.U./dL (NORMAL)
[2018-08-27 17:44] LABS: CLARITY,URINE SL. CLOUDY (CLEAR)
[2018-08-27 17:45] LABS: AMPHETAMINE SCREEN,URINE NEGATIVE (NEGATIVE); BENZODIAZEPINES SCREEN, URINE POSITIVE (NEGATIVE); COCAINE SCREEN URINE NEGATIVE (NEGATIVE); METHADONE SCREEN, URINE NEGATIVE (NEGATIVE); METHAMPHETAMINES SCREEN, URINE NEGATIVE (NEGATIVE); OPIATE SCREEN, URINE NEGATIVE (NEGATIVE); OXYCODONE SCREEN, URINE NEGATIVE (NEGATIVE); PROPOXYPHENE SCREEN, URINE NEGATIVE (NEGATIVE); TRICYCLIC ANTIDEPRESSANT,URINE NEGATIVE (NEGATIVE)
[2018-08-27 18:01] LABS: BACTERIA,URINE Moderate /HPF (None Seen); RBC,URINE None Seen /HPF (0-5); SQUAMOUS EPITHELIAL CELL,UR MANY Squamous (<= Few)
[2018-08-27 18:12] LABS: BASOPHILS # (AUTO) 0.1 10^3/uL (0.0-0.1); BASOPHILS % (AUTO) 1.1 %; EOSINOPHILS # (AUTO) 0.2 10^3/uL (0.0-0.7); EOSINOPHILS % (AUTO) 2.2 %; LYMPHOCYTES # (AUTO) 4.5 10^3/uL (1.5-3.5); LYMPHOCYTES % (AUTO) 41.4 %; MEAN CORPUSCULAR HEMOGLOBIN 27.7 pg (27.0-31.0); MEAN CORPUSCULAR HGB CONC 31.8 g/dL (32.0-36.0); MEAN PLATELET VOLUME 9.7 fL (7.9-10.8); MONOCYTES # (AUTO) 1.7 10^3/uL (0.0-1.0); MONOCYTES % (AUTO) 15.6 %; NEUTROPHILS # (AUTO) 4.3 10^3/uL (1.5-6.6); NEUTROPHILS % (AUTO) 39.7 %; PLT - PLATELET COUNT 329 10^3/uL (130-450); RED BLOOD COUNT 4.71 10^6/uL (4.20-5.40); RED CELL DISTRIBUTION WIDTH 17.1 % (12.0-15.0); WHITE BLOOD COUNT 10.9 x10^3/uL (4.8-10.8)
--- NOTE | 2018-08-27 18:15 | ED Physician Documentation ---
PD HPI MHE - Stated complaint Stated Complaint: SI - Chief complaint Chief Complaint: MHE - History obtained from History obtained from: Patient - History of Present Illness Primary symptom: Self harm - cut, Other (she says she got upset with roommate and cut herself to feel less stress. denies suicidal intention nor ideation. Has had self cutting in the past for stress relief. Also has had suicidality in the past. She denies suicidality today.). No: Suicidal ideation Timing - onset: Today Contributing factors: No: Substance abuse - ETOH, Substance abuse - drugs, Out of meds Similar symptoms before: Diagnosis (self cutting at times in the past for stress releif.) Review of Systems Nose: denies: Rhinorrhea / runny nose, Congestion Throat: denies: Sore throat Respiratory: denies: Cough GI: reports: Nausea. denies: Vomiting, Constipation, Diarrhea Skin: reports: Laceration (s) (both upper arms.) Musculoskeletal: denies: Neck pain, Back pain Neurologic: denies: Altered mental status, Headache, Head injury PD PAST MEDICAL HISTORY - Past Medical History Past Medical History: Yes Cardiovascular: Angina, Other Respiratory: COPD, Pneumonia Neuro: Seizure disorder Endocrine/Autoimmune: Type 2 diabetes GI: GERD, Hiatal hernia TYPE CASTER: None : None HEENT: None Psych: Depression, Schizophrenia, Post traumatic stress disorder Musculoskeletal: None Derm: None - Past Surgical History Past Surgical History: Yes General: Bowel surgery Ortho: Other /TYPE CASTER: 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 HEENT: Cataracts - Present Medications Home Medications: Ambulatory Orders Medication Instructions Recorded Confirmed Divalproex ER [Depakote ER] 500 mg PO BID 12/25/16 08/03/18 Albuterol Sulf [Ventolin Hfa 1 - 2 puffs INH Q4HR PRN #1 inhaler 05/16/18 08/03/18 Inhaler] QUEtiapine [SEROquel] 150 mg PO BID 08/03/18 08/03/18 Mirtazapine [Remeron] 0 mg 08/14/18 - Allergies Allergies/Adverse Reactions: Allergies Allergy/AdvReac Type Severity Reaction Status Date / Time azithromycin Allergy Severe Hives Verified 08/28/18 10:14 haloperidol Allergy Severe Anaphylaxis Verified 08/28/18 10:14 Penicillins Allergy Severe Anaphylaxis Verified 08/28/18 10:14 amoxicillin [Amoxicillin] Allergy Intermediate Rash Verified 08/28/18 10:14 grapefruit Allergy Intermediate Rash Verified 08/28/18 10:14 iodine Allergy Intermediate Rash Verified 08/28/18 10:14 Sulfa (Sulfonamide Allergy Intermediate Rash Verified 08/28/18 10:14 Antibiotics) haloperidol lactate * AdvReac Rash Verified 08/28/18 10:14 [From Haldol] - Social History Does the pt smoke?: Yes Smoking Status: Current every day smoker Does the pt drink ETOH?: No Does the pt have substance abuse?: No - Immunizations Immunizations are current?: No Immunizations: TDAP >10years/unknown - POLST Patient has POLST: No PD ED PE NORMAL - Vitals Vital signs reviewed: Yes - General General: Alert and oriented X 3, No acute distress, Well developed/nourished, Other (alert and conversant and pleasant/cooperative. Denies suicidality. Abrasions right upper arm. Lacerations 3 on left upper arm, just to fatty tissue layer. ) - HEENT HEENT: Atraumatic - Neck Neck: Supple, no meningeal sign, No adenopathy - Cardiac Cardiac: RRR, No murmur - Respiratory Respiratory: Clear bilaterally - Derm Derm: Normal color, Warm and dry - Extremities Extremities: No tenderness to palpate, Normal ROM s pain - Neuro Neuro: Alert and oriented X 3, No motor deficit, Normal speech Eye Opening: Spontaneous Motor: Obeys Commands Verbal: Oriented GCS Score: 15 Results - Vitals Vitals: Vital Signs - 24 hr 08/27/18 08/27/18 16:59 20:17 Temperature 36.5 C 36.9 C Heart Rate 100 105 H Respiratory 18 20 Rate Blood Pressure 128/85 H 146/99 H O2 Saturation 94 95 Oxygen O2 Source [With Activity] Room air O2 Source [Without Activity] Room air O2 Source Room air - Labs Labs: Laboratory Tests 08/27/18 08/27/18 08/27/18 17:21 18:03 18:03 WBC 10.9 H RBC 4.71 Hgb 13.0 Hct 40.9 MCV 87.0 MCH 27.7 MCHC 31.8 L RDW 17.1 H Plt Count 329 MPV 9.7 Neut # (Auto) 4.3 Lymph # (Auto) 4.5 H [place] # (Auto) 1.7 H Eos # (Auto) 0.2 Baso # (Auto) 0.1 Absolute Nucleated RBC 0.01 Nucleated RBC % 0.1 Manual Slide Review Indicated WBC Morphology NORMAL APPEARANCE Platelet Estimate NORMAL (130-450,000) Platelet Morphology NORMAL APPEARANCE RBC Morph Micro Appear 1+ ANISOCYTOSIS Sodium 141 Potassium 4.9 Chloride 107 Carbon Dioxide 23 Anion Gap 11.0 BUN 12 Creatinine 0.7 Estimated GFR (MDRD) 87 L Glucose 122 H Calcium 8.6 Total Bilirubin 0.9 AST 25 ALT 17 Alkaline Phosphatase 65 Total Protein 7.3 Albumin 3.7 Globulin 3.6 Albumin/Globulin Ratio 1.0 Lipase 16 L Urine Color YELLOW Urine Clarity SL. CLOUDY Urine pH 6.5 Ur Specific [place] 1.020 Urine Protein NEGATIVE Urine Glucose (UA) NEGATIVE Urine Ketones NEGATIVE Urine Occult Blood NEGATIVE Urine Nitrite NEGATIVE Urine Bilirubin NEGATIVE Urine Urobilinogen 0.2 (NORMAL) Ur Leukocyte Esterase NEGATIVE Urine RBC None Seen Urine WBC 0-3 Ur Squamous Epith Cells MANY Squamous H Urine Bacteria Moderate H Ur Microscopic Review INDICATED Urine Culture Comments NOT INDICATED Salicylates < 6.0 Urine Opiates Screen NEGATIVE Ur Oxycodone Screen NEGATIVE Urine Methadone Screen NEGATIVE Ur Propoxyphene Screen NEGATIVE Acetaminophen < 10 L Ur Barbiturates Screen NEGATIVE Ur Tricyclics Screen NEGATIVE Ur Phencyclidine Scrn NEGATIVE Ur Amphetamine Screen NEGATIVE U Methamphetamines Scrn NEGATIVE U Benzodiazepines Scrn POSITIVE H Urine Cocaine Screen NEGATIVE U Cannabinoids Screen NEGATIVE Ethyl Alcohol < 5.0 Procedures - Laceration (location) left upper arm Length in cm: 12 Wound type: Linear, Into subcut fat, Clean Neurovascular status: Sensory intact, Motor intact, Vascular intact Anesthesia: Lidocaine 1% with epi Wound Preparation: Irrigated copiously NS, Wound explored, To the base. No: FB identified, Wound edges modified Skin layer closure: Nylon, Running, Size #-0 - enter number (5), Sutures - enter # (many) Other: Patient tolerated well, No complications, Neurovascular intact, Dressing applied, Tetanus UTD PD MEDICAL DECISION MAKING - ED course Complexity details: considered differential (denies suicidal intent nor ideation. She in the past is typically pretty forthright when feeling depressed suicidal, so I feel she is safe to be discahrged. ), d/w patient Departure - Departure Disposition: 01 Home, Self Care Clinical Impression: Deliberate self-cutting, Stress reaction Arm laceration Qualifiers: Encounter type: initial encounter Laterality: unspecified laterality Qualified Code(s): S41.119A - Laceration without foreign body of unspecified upper arm, initial encounter Condition: Stable Record reviewed to determine appropriate education?: Yes Instructions: ED Laceration All Follow-Up: Deandre Herrera MD [Primary Care Provider] - Comments: You promised to go home and sleep and take your medications at the normal doses. No hurting of yourself. It is okay to wash and shower. Clean off the wound twice a day with soap and water, or peroxide and water. Apply some antibiotic ointment to it to keep it moist. Also to watch for signs of infection such as purulence, redness or increasing pain. Return to your primary care or the ER at the specified time for suture removal. Suture removal 7 or 8 days. Discharge Date/Time: 08/27/18 21:00
[2018-08-27 18:24] LABS: PLATELET ESTIMATE, MANUAL NORMAL (130-450,000) (NORMAL); PLATELET MORPHOLOGY NORMAL APPEARANCE (NORMAL); RBC MORPHOLOGY (MULTIPLE) 1+ ANISOCYTOSIS (NORMAL)
[2018-08-27 18:25] LABS: ACETAMINOPHEN < 10 ug/mL (10-30); ALBUMIN 3.7 g/dL (3.2-5.5); ALKALINE PHOSPHATASE 65 IU/L (42-121); ALT ALANINE AMINOTRANSFERASE 17 IU/L (10-60); AST ASPARTATE AMINOTRANSFERASE 25 IU/L (10-42); BILIRUBIN,TOTAL 0.9 mg/dL (0.2-1.0); BUN - BLOOD UREA NITROGEN 12 mg/dL (6-20); CALCIUM 8.6 mg/dL (8.5-10.3); CARBON DIOXIDE - CO2 23 mmol/L (21-32); CHLORIDE 107 mmol/L (101-111); CREATININE 0.7 mg/dL (0.4-1.0); GFR - MDRD 87 (>89); GLUCOSE 122 mg/dL (70-100); LIPASE 16 U/L (22-51); SALICYLATE < 6.0 mg/dL; SODIUM 141 mmol/L (135-145); TOTAL PROTEIN 7.3 g/dL (6.7-8.2)
[2018-08-27] MEDS ORDERED: ONDANSETRON ODT 4 MG TABLET TL STA (19:38)
[2018-08-27] MEDS ORDERED: ACETAMINOPHEN 325 MG TABLET PO STA (19:57)
[2018-08-27 20:18] VITALS: BP 146/99
== END 2018-08-27 21:00 | disposition home or self-care (01) ==
LOC: EDUNIT# → ED 17:00
DX: S41.112A Laceration without foreign body of left upper arm, initial encounter (principal); S40.811A Abrasion of right upper arm, initial encounter; X83.8XXA Intentional self-harm by other specified means, initial encounter; F43.9 Reaction to severe stress, unspecified; F32.9 Major depressive disorder, single episode, unspecified; F20.9 Schizophrenia, unspecified; F43.10 Post-traumatic stress disorder, unspecified; E11.9 Type 2 diabetes mellitus without complications; F17.200 Nicotine dependence, unspecified, uncomplicated
CPT/HCPCS: 12004; 36415; 80053; 81001; 83690; 85025; 99283; A9270; Q0162; 80306; 80307; 80320; 80329; 81003; 87086

== ENCOUNTER 2018-08-28 10:00 | Emergency (ER) | payer MEDICARE, MEDICAID ==
[2018-08-28 10:58] LABS: BASOPHILS # (AUTO) 0.1 10^3/uL (0.0-0.1); BASOPHILS % (AUTO) 1.3 %; EOSINOPHILS # (AUTO) 0.2 10^3/uL (0.0-0.7); EOSINOPHILS % (AUTO) 1.6 %; HGB - HEMOGLOBIN 12.8 g/dL (12.0-16.0); LYMPHOCYTES # (AUTO) 4.1 10^3/uL (1.5-3.5); LYMPHOCYTES % (AUTO) 42.8 %; MEAN CORPUSCULAR HEMOGLOBIN 28.8 pg (27.0-31.0); MEAN CORPUSCULAR VOLUME 87.4 fL (81.0-99.0); MEAN PLATELET VOLUME 9.8 fL (7.9-10.8); MONOCYTES # (AUTO) 1.4 10^3/uL (0.0-1.0); MONOCYTES % (AUTO) 14.4 %; NEUTROPHILS # (AUTO) 3.8 10^3/uL (1.5-6.6); NEUTROPHILS % (AUTO) 39.9 %; PLT - PLATELET COUNT 326 10^3/uL (130-450); RED BLOOD COUNT 4.46 10^6/uL (4.20-5.40); RED CELL DISTRIBUTION WIDTH 17.2 % (12.0-15.0); WHITE BLOOD COUNT 9.6 x10^3/uL (4.8-10.8)
[2018-08-28 11:08] LABS: ACETAMINOPHEN < 10 ug/mL (10-30); ALBUMIN 3.7 g/dL (3.2-5.5); ALBUMIN/GLOBULIN RATIO 1.1 (1.0-2.2); ALKALINE PHOSPHATASE 65 IU/L (42-121); ALT ALANINE AMINOTRANSFERASE 13 IU/L (10-60); AST ASPARTATE AMINOTRANSFERASE 21 IU/L (10-42); BILIRUBIN,TOTAL 0.4 mg/dL (0.2-1.0); BUN - BLOOD UREA NITROGEN 10 mg/dL (6-20); CALCIUM 8.8 mg/dL (8.5-10.3); CARBON DIOXIDE - CO2 23 mmol/L (21-32); CHLORIDE 106 mmol/L (101-111); CREATININE 0.7 mg/dL (0.4-1.0); GFR - MDRD 87 (>89); GLUCOSE 112 mg/dL (70-100); LIPASE 18 U/L (22-51); SALICYLATE < 6.0 mg/dL; SODIUM 139 mmol/L (135-145)
[2018-08-28 11:14] LABS: MUDS CUTOFF CONCENTRATIONS CUTOFF CONC BELOW:
[2018-08-28 11:20] LABS: BILIRUBIN,URINE NEGATIVE (NEGATIVE); GLUCOSE, URINE (UA) NEGATIVE (NEGATIVE); KETONES,URINE (UA) NEGATIVE (NEGATIVE); LEUKOCYTE ESTERASE, URINE NEGATIVE (NEGATIVE); NITRITE,URINE NEGATIVE (NEGATIVE); OCCULT BLOOD,URINE NEGATIVE (NEGATIVE); PROTEIN,URINE NEGATIVE (NEGATIVE); UROBILINOGEN,URINE 0.2 (NORMAL) E.U./dL (NORMAL)
[2018-08-28 11:21] LABS: CLARITY,URINE CLEAR (CLEAR)
[2018-08-28 11:33] LABS: AMPHETAMINE SCREEN,URINE NEGATIVE (NEGATIVE); BENZODIAZEPINES SCREEN, URINE NEGATIVE (NEGATIVE); COCAINE SCREEN URINE NEGATIVE (NEGATIVE); METHADONE SCREEN, URINE NEGATIVE (NEGATIVE); METHAMPHETAMINES SCREEN, URINE NEGATIVE (NEGATIVE); OPIATE SCREEN, URINE NEGATIVE (NEGATIVE); OXYCODONE SCREEN, URINE NEGATIVE (NEGATIVE); PROPOXYPHENE SCREEN, URINE NEGATIVE (NEGATIVE); TRICYCLIC ANTIDEPRESSANT,URINE NEGATIVE (NEGATIVE)
--- NOTE | 2018-08-28 11:58 | ED Physician Documentation ---
PD HPI MHE - Stated complaint Stated Complaint: SI - Chief complaint Chief Complaint: MHE - History obtained from History obtained from: Patient - History of Present Illness Primary symptom: Suicidal ideation Timing - onset: Today Pain level max: 0 Pain level now: 0 Contributing factors: Other Similar symptoms before: Diagnosis, Work up / diagnostics, Treatment, Follow up Recently seen: Emergency Dept - Additional information Additional information: 53 years old female with history of schizophrenia and psychosis here with complain of fleeting thoughts of self harming herself. But this had gone away and is now requesting to go home. Patient was seen here yesterday for the same thing And treated for multiple abrasions and lacerations of her arm related to self injury. Patient stated she was discharged about 11 PM yesterday.Patient is here with her ticket sorter. Review of Systems Ten Systems: 10 systems reviewed and negative Constitutional: denies: Fever Cardiac: denies: Chest pain / pressure Respiratory: denies: Dyspnea, Cough GI: denies: Abdominal Pain Skin: reports: Abrasion (s), Laceration (s). 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 : None HEENT: None Psych: Depression, Bipolar disorder, Schizophrenia, Post traumatic stress disorder Musculoskeletal: None Derm: None - Past Surgical History Past Surgical History: Yes General: Bowel surgery Ortho: Other /ELECTRICAL AUTOMATION ENGINEER: 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 HEENT: Cataracts - Present Medications Home Medications: Ambulatory Orders Medication Instructions Recorded Confirmed RX: Divalproex ER [Depakote ER] 500 mg PO BID 12/25/16 08/03/18 RX: Albuterol Sulf [Ventolin Hfa 1 - 2 puffs INH Q4HR PRN #1 inhaler 05/16/18 08/03/18 Inhaler] QUEtiapine [SEROquel] 150 mg PO BID 08/03/18 08/03/18 Mirtazapine [Remeron] 0 mg 08/14/18 - Allergies Allergies/Adverse Reactions: Allergies Allergy/AdvReac Type Severity Reaction Status Date / Time azithromycin Allergy Severe Hives Verified 08/28/18 10:14 haloperidol Allergy Severe Anaphylaxis Verified 08/28/18 10:14 Penicillins Allergy Severe Anaphylaxis Verified 08/28/18 10:14 amoxicillin [Amoxicillin] Allergy Intermediate Rash Verified 08/28/18 10:14 grapefruit Allergy Intermediate Rash Verified 08/28/18 10:14 iodine Allergy Intermediate Rash Verified 08/28/18 10:14 Sulfa (Sulfonamide Allergy Intermediate Rash Verified 08/28/18 10:14 Antibiotics) haloperidol lactate * AdvReac Rash Verified 08/28/18 10:14 [From Haldol] - Social History Does the pt smoke?: Yes Smoking Status: Current every day smoker Does the pt drink ETOH?: No Does the pt have substance abuse?: No Substance Use and Type: Marijuana, Cocaine/Crack - Immunizations Immunizations are current?: No Immunizations: TDAP >10years/unknown - POLST Patient has POLST: No PD ED PE NORMAL - Vitals Vital signs reviewed: Yes - General General: Alert and oriented X 3, No acute distress, Well developed/nourished - HEENT HEENT: PERRL, EOMI, Moist mucous membranes - Neck Neck: Supple, no meningeal sign - Cardiac Cardiac: RRR, No murmur - Respiratory Respiratory: No respiratory distress, Clear bilaterally - Abdomen Abdomen: Normal bowel sounds, Soft, Non tender, Non distended - Derm Derm: Normal color, Warm and dry, Other (Right arm multiple lung abrasions that is healing, no erythema no drainage. Left arm with up lacerations that are approximated with sutures, no erythema no drainage and nontender. Both arms are neurovascularly intact, sensation intact, full range of motion, strength 5/5, pulses +2.) - Extremities Extremities: No deformity, No tenderness to palpate, Normal ROM s pain, No edema - Neuro Neuro: Alert and oriented X 3, Normal speech - Psych Psych: Normal mood, Normal affect Results - Vitals Vitals: Vital Signs - 24 hr 08/28/18 08/28/18 10:10 20:50 Temperature 36.5 C Heart Rate 89 78 Respiratory 16 16 Rate Blood Pressure 147/80 H 138/75 H O2 Saturation 100 97 Oxygen O2 Source [With Activity] Room air O2 Source [Without Activity] Room air O2 Source Room air - Labs Labs: Laboratory Tests 08/28/18 08/28/18 08/28/18 10:30 10:43 10:43 WBC 9.6 RBC 4.46 Hgb 12.8 Hct 39.0 MCV 87.4 MCH 28.8 MCHC 33.0 RDW 17.2 H Plt Count 326 MPV 9.8 Neut # (Auto) 3.8 Lymph # (Auto) 4.1 H Tucker # (Auto) 1.4 H Eos # (Auto) 0.2 Baso # (Auto) 0.1 Absolute Nucleated RBC 0.01 Nucleated RBC % 0.1 Sodium 139 Potassium 3.7 Chloride 106 Carbon Dioxide 23 Anion Gap 10.0 BUN 10 Creatinine 0.7 Estimated GFR (MDRD) 87 L Glucose 112 H Calcium 8.8 Total Bilirubin 0.4 AST 21 ALT 13 Alkaline Phosphatase 65 Total Protein 7.0 Albumin 3.7 Globulin 3.3 Albumin/Globulin Ratio 1.1 Lipase 18 L Urine Color LIGHT YELLOW Urine Clarity CLEAR Urine pH 6.0 Ur Specific Mcbrides <=1.005 Urine Protein NEGATIVE Urine Glucose (UA) NEGATIVE Urine Ketones NEGATIVE Urine Occult Blood NEGATIVE Urine Nitrite NEGATIVE Urine Bilirubin NEGATIVE Urine Urobilinogen 0.2 (NORMAL) Ur Leukocyte Esterase NEGATIVE Ur Microscopic Review NOT INDICATED Urine Culture Comments NOT INDICATED Last Dose Date Last Dose Time Salicylates < 6.0 Urine Opiates Screen NEGATIVE Ur Oxycodone Screen NEGATIVE Urine Methadone Screen NEGATIVE Ur Propoxyphene Screen NEGATIVE Acetaminophen < 10 L Ur Barbiturates Screen NEGATIVE Valproic Acid Ur Tricyclics Screen NEGATIVE Ur Phencyclidine Scrn NEGATIVE Ur Amphetamine Screen NEGATIVE U Methamphetamines Scrn NEGATIVE U Benzodiazepines Scrn NEGATIVE Urine Cocaine Screen NEGATIVE U Cannabinoids Screen NEGATIVE Ethyl Alcohol < 5.0 08/28/18 20:43 WBC RBC Hgb Hct MCV MCH MCHC RDW Plt Count MPV Neut # (Auto) Lymph # (Auto) Tucker # (Auto) Eos # (Auto) Baso # (Auto) Absolute Nucleated RBC Nucleated RBC % Sodium Potassium Chloride Carbon Dioxide Anion Gap BUN Creatinine Estimated GFR (MDRD) Glucose Calcium Total Bilirubin AST ALT Alkaline Phosphatase Total Protein Albumin Globulin Albumin/Globulin Ratio Lipase Urine Color Urine Clarity Urine pH Ur Specific Mcbrides Urine Protein Urine Glucose (UA) Urine Ketones Urine Occult Blood Urine Nitrite Urine Bilirubin Urine Urobilinogen Ur Leukocyte Esterase Ur Microscopic Review Urine Culture Comments Last Dose Date UNK Last Dose Time UNK Salicylates Urine Opiates Screen Ur Oxycodone Screen Urine Methadone Screen Ur Propoxyphene Screen Acetaminophen Ur Barbiturates Screen Valproic Acid 53.1 Ur Tricyclics Screen Ur Phencyclidine Scrn Ur Amphetamine Screen U Methamphetamines Scrn U Benzodiazepines Scrn Urine Cocaine Screen U Cannabinoids Screen Ethyl Alcohol PD MEDICAL DECISION MAKING - ED course Complexity details: reviewed results, re-evaluated patient, considered differential (Fleeting suicidal thoughts, self-harm, wound check), d/w patient, d/w research consultant ED course: 1202 Case discussed with [place] social worker masters who is in the ER after evaluating patient the social worker masters stated patient needs to be admitted as she is unable to provide a safety plan. So she had called the DCR. 1232 patient had attempted to elope and security was called. Patient is arguing with staff and security but eventually was cooperative and placed in room 6. 1623 patient had some food and trying to sleep however she is complaining of feeling anxious and is requesting for her lorazepam 1 mg p.o. this was given to the patient. [address] [facility] Mental health evaluation has not arrived so case will be endorsed to evening Dr. Mcleod. Departure - Departure Disposition: 65 Psych Hosp/Unit DC/Xfer Clinical Impression: Self-inflicted injury, Suicidal ideation Condition: Stable Discharge Date/Time: 08/28/18 21:09
[2018-08-28] MEDS ORDERED: LORazepam 0.5 MG TABLET PO STA (16:26)
--- NOTE | 2018-08-28 20:05 | ED Physician Documentation ---
ED Addendum - Addendum Addendum: 08/28/18 20:03 The patient was seen by social work and the DCR. The patient does want help but she also was not able to commit to safety and then try to elope from the department. It was felt therefore that she was unsafe and needed to attainment. I concur with this opinion as a do not feel she is reliably consistent in her mood at this time to be able to have confidence that she would not hurt herself.
[2018-08-28] MEDS ORDERED: HYDROcod/ACETAM 5/325 MG TABLET PO STA (20:36)
[2018-08-28 21:04] LABS: VALPROIC ACID (DEPAKOTE) 53.1 ug/mL
[2018-08-28 21:09] VITALS: BP 138/75
== END 2018-08-28 21:09 ==
LOC: ED 10:00
DX: S40.811A Abrasion of right upper arm, initial encounter (principal); S41.112A Laceration without foreign body of left upper arm, initial encounter; X83.8XXA Intentional self-harm by other specified means, initial encounter; F31.9 Bipolar disorder, unspecified; F20.9 Schizophrenia, unspecified; F43.10 Post-traumatic stress disorder, unspecified; E11.9 Type 2 diabetes mellitus without complications; F17.200 Nicotine dependence, unspecified, uncomplicated
CPT/HCPCS: 36415; 80053; 80164; 81003; 83690; 85025; 99284; 99285; A9270; 80306; 80307; 80320; 80329; 81001; 87086

== ENCOUNTER 2018-08-28 20:51 | Outpatient (CLI) | payer MEDICARE, MEDICAID | END 2018-08-28 20:52 | LOC: EMS 20:51 | PROVIDERS: ATTEND Surgery | DX: R45.851 Suicidal ideations (principal) | CPT/HCPCS: A0425; A0428 ==

== ENCOUNTER 2018-09-04 10:12 | Emergency (ER) | payer MEDICARE, MEDICAID ==
[2018-09-04 10:20] VITALS: BP 164/74
--- NOTE | 2018-09-04 10:36 | ED Physician Documentation ---
PD HPI UPPER EXT INJURY - Stated complaint Stated Complaint: STITCH REMOVAL - Chief complaint Chief Complaint: Laceration - History obtained from History obtained from: Patient - History of Present Illness Location: Left (3 sutured wounds on the left upper arm, here for stitch removal. 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 : None HEENT: None Psych: Depression, Bipolar disorder, Schizophrenia, Post traumatic stress disorder Musculoskeletal: None Derm: None - Past Surgical History Past Surgical History: Yes General: Bowel surgery Ortho: Other /BACK TENDER PAPER MACHINE: 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 HEENT: Cataracts - Present Medications Home Medications: Ambulatory Orders Medication Instructions Recorded Confirmed Divalproex ER [Depakote ER] 500 mg PO BID 12/25/16 08/03/18 Albuterol Sulf [Ventolin Hfa 1 - 2 puffs INH Q4HR PRN #1 inhaler 05/16/18 08/03/18 Inhaler] QUEtiapine [SEROquel] 150 mg PO BID 08/03/18 08/03/18 Mirtazapine [Remeron] 0 mg 08/14/18 - Allergies Allergies/Adverse Reactions: Allergies Allergy/AdvReac Type Severity Reaction Status Date / Time azithromycin Allergy Severe Hives Verified 08/28/18 10:14 haloperidol Allergy Severe Anaphylaxis Verified 08/28/18 10:14 Penicillins Allergy Severe Anaphylaxis Verified 08/28/18 10:14 amoxicillin [Amoxicillin] Allergy Intermediate Rash Verified 08/28/18 10:14 grapefruit Allergy Intermediate Rash Verified 08/28/18 10:14 iodine Allergy Intermediate Rash Verified 08/28/18 10:14 Sulfa (Sulfonamide Allergy Intermediate Rash Verified 08/28/18 10:14 Antibiotics) haloperidol lactate * AdvReac Rash Verified 08/28/18 10:14 [From Haldol] - Social History Does the pt smoke?: Yes Smoking Status: Current every day smoker Does the pt drink ETOH?: No Does the pt have substance abuse?: No - Immunizations Immunizations are current?: No Immunizations: TDAP >10years/unknown - POLST Patient has POLST: No PD ED PE NORMAL - Vitals Vital signs reviewed: Yes - General General: Alert and oriented X 3, No acute distress - Extremities Extremities: Other (There is 3 self-inflicted wounds to the left upper outer arm with running sutures in place that were removed during examination. Clean dry and intact without evidence of infection.) Results - Vitals Vitals: Vital Signs - 24 hr 09/04/18 10:18 Temperature 36.5 C Heart Rate 72 Respiratory 16 Rate Blood Pressure 164/74 H O2 Saturation 99 Oxygen O2 Source [With Activity] Room air O2 Source [Without Activity] Room air O2 Source Room air Departure - Departure Disposition: Home, Self Care Clinical Impression: Visit for suture removal Condition: Good Record reviewed to determine appropriate education?: Yes Instructions: ED Laceration All Comments: Your blood pressure was elevated today on check into the emergency department. This does not mean that you have hypertension, it is a common phenomenon to come to the emergency department and have elevated blood pressure. I recommend that you see your primary care physician within the week to have it rechecked when you are feeling better.
== END 2018-09-04 10:40 | disposition home or self-care (01) ==
LOC: ED 10:12
DX: S41.112D Laceration without foreign body of left upper arm, subsequent encounter (principal); Y33.XXXD Other specified events, undetermined intent, subsequent encounter; R03.0 Elevated blood-pressure reading, without diagnosis of hypertension; E11.9 Type 2 diabetes mellitus without complications; F17.200 Nicotine dependence, unspecified, uncomplicated
CPT/HCPCS: 99282

== ENCOUNTER 2018-09-06 13:40 | Outpatient (CLI) | payer MEDICARE, MEDICAID ==
--- NOTE | 2018-09-06 15:51 | XRAY Report ---
Reason: MUSCLE STRAIN Procedure Date: 09/06/2018 Accession Number: [id number] / [id number] Procedure: XRN - Lumbar Spine 2 View CPT Code: FULL RESULT: EXAM: LUMBOSACRAL SPINE RADIOGRAPHY EXAM DATE: 09/06/2018 02:11 PM. CLINICAL HISTORY: Muscle strain. Low back pain. COMPARISONS: HIP W/PELVIS 2-3V LT 11/23/2017 8:50 PM. TECHNIQUE: 3 views. FINDINGS: Study is limited by photopenia due to patient body habitus. Alignment: Normal. No spondylolisthesis or scoliosis. Bones: Five [id number] lumbar vertebral bodies are present. No fractures or bone lesions. Disks: Mild multilevel degenerative disk disease which is most pronounced at L1 through L3 where there is marginal osteophytosis. Facets: There is multilevel facet arthropathy which is most pronounced at L4 and L5, likely moderate. Sacroiliac Joints: Unremarkable. Soft Tissues: Normal. The visualized bowel gas pattern is normal. IMPRESSION: Mild to moderate degenerative changes. RADIA
== END 2018-09-06 13:41 | disposition home or self-care (01) ==
LOC: DI.N 13:40
PROVIDERS: ATTEND Family Medicine
DX: M51.36 Other intervertebral disc degeneration, lumbar region (principal); M47.9 Spondylosis, unspecified
CPT/HCPCS: 72100

== ENCOUNTER 2018-09-06 13:43 | Outpatient (CLI) | payer MEDICARE, MEDICAID ==
[2018-09-06 19:25] LABS: CALCIUM 8.6 mg/dL (8.5-10.3); CREATININE 0.8 mg/dL (0.4-1.0)
[2018-09-06 20:06] LABS: HB2 TOTAL 14.1 g/dL; HEMOGLOBIN A1C 0.56 g/dL; HEMOGLOBIN A1C % 5.8 % (4.6-6.2)
== END 2018-09-06 23:59 | disposition home or self-care (01) ==
LOC: LAB.N 13:43
PROVIDERS: ATTEND Family Medicine
DX: R73.01 Impaired fasting glucose (principal); F31.70 Bipolar disorder, currently in remission, most recent episode unspecified
CPT/HCPCS: 36415; 80048; 83036

== ENCOUNTER 2018-09-06 19:07 | Outpatient (CLI) | payer MEDICARE, MEDICAID | END 2018-09-06 19:08 | disposition critical access hospital (66) | LOC: EMS 19:07 | PROVIDERS: ATTEND Surgery | DX: S21.011A Laceration without foreign body of right breast, initial encounter (principal); S31.119A Laceration without foreign body of abdominal wall, unspecified quadrant without penetration into peritoneal cavity, initial encounter; W26.8XXA Contact with other sharp object(s), not elsewhere classified, initial encounter; Y92.009 Unspecified place in unspecified non-institutional (private) residence as the place of occurrence of the external cause | CPT/HCPCS: A0425; A0429 ==

== ENCOUNTER 2018-09-06 19:27 | Emergency (ER) | payer MEDICARE, MEDICAID ==
[2018-09-06 19:48] VITALS: BP 117/84
--- NOTE | 2018-09-06 20:25 | ED Physician Documentation ---
History of Present Illness - Stated complaint Stated Complaint: SELF INFLICTED CUTS, CHEST, ABD - Chief complaint Chief Complaint: Laceration - History obtained from History obtained from: Patient, EMS - History of Present Illness Timing: Today Pain level max: 0 Pain level now: 0 - Additonal information Additional information: 53-year-old female with a long history of depression presents to the emergency department with self-inflicted lacerations after feeling sad about giving away her cat. She states that she can no longer care for her. She denies feeling suicidal or homicidal at this time. Came to have the wounds evaluated. She was not trying to kill herself. 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 : None HEENT: None Psych: Depression, Bipolar disorder, Schizophrenia, Post traumatic stress disorder Musculoskeletal: None Derm: None - Past Surgical History Past Surgical History: Yes General: Bowel surgery Ortho: Other /FELLED SEAM OPERATOR CHAINSTITCH: 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 HEENT: Cataracts - Present Medications Home Medications: Ambulatory Orders Medication Instructions Recorded Confirmed Divalproex ER [Depakote ER] 500 mg PO BID 12/25/16 08/03/18 Albuterol Sulf [Ventolin Hfa 1 - 2 puffs INH Q4HR PRN #1 inhaler 05/16/18 08/03/18 Inhaler] Mirtazapine [Remeron] 15 mg QPM 08/14/[address] [Depakote Dr] 250 mg BID 09/06/18 09/06/18 OLANZapine [Olanzapine] 10 mg BID 09/06/18 09/06/18 clonazePAM [Clonazepam] 1 mg BID 09/06/18 09/06/18 metFORMIN [Glucophage] 09/06/18 09/06/18 - Allergies Allergies/Adverse Reactions: Allergies Allergy/AdvReac Type Severity Reaction Status Date / Time azithromycin Allergy Severe Hives Verified 09/06/18 19:49 haloperidol Allergy Severe Anaphylaxis Verified 09/06/18 19:49 Penicillins Allergy Severe Anaphylaxis Verified 09/06/18 19:49 amoxicillin [Amoxicillin] Allergy Intermediate Rash Verified 09/06/18 19:49 grapefruit Allergy Intermediate Rash Verified 09/06/18 19:49 iodine Allergy Intermediate Rash Verified 09/06/18 19:49 Sulfa (Sulfonamide Allergy Intermediate Rash Verified 09/06/18 19:49 Antibiotics) haloperidol lactate * AdvReac Rash Verified 09/06/18 19:49 [From Haldol] - Social History Does the pt smoke?: Yes Smoking Status: Current every day smoker Does the pt drink ETOH?: No Does the pt have substance abuse?: No - Immunizations Immunizations are current?: No Immunizations: TDAP >10years/unknown - POLST Patient has POLST: No PD ED PE NORMAL - Vitals Vital signs reviewed: Yes - General General: Alert and oriented X 3, No acute distress - HEENT HEENT: Moist mucous membranes - Neck Neck: Supple, no meningeal sign - Cardiac Cardiac: RRR - Respiratory Respiratory: No respiratory distress, Clear bilaterally - Abdomen Abdomen: Soft, Non tender, Non distended - Derm Derm: Warm and dry, Other (Numerous self-inflicted lacerations over the right breast and abdominal wall. Superficial. No bleeding) - Neuro Neuro: Alert and oriented X 3 Results - Vitals Vitals: Vital Signs - 24 hr 09/06/18 19:46 Temperature 36.9 C Heart Rate 88 Respiratory 20 Rate Blood Pressure 117/84 H O2 Saturation 97 Oxygen O2 Source [With Activity] Room air O2 Source [Without Activity] Room air O2 Source Room air PD MEDICAL DECISION MAKING - ED course Complexity details: considered differential, d/w patient ED course: Wounds were cleansed and bandaged. She is not feeling suicidal at this time. Able to contract for safety. Warnings of infection and instructions on wound care given at bedside. Also counseled on how to minimize scarring. Patient counseled regarding signs and symptoms for which I believe and urgent re- evaluation would be necessary. Patient with good understanding of and agreement to plan and is comfortable going home at this time This document was made in part using voice recognition software. While efforts are made to proofread this document, sound alike and grammatical errors may occur. tdap given Departure - Departure Disposition: 01 Home, Self Care Clinical Impression: Superficial laceration Condition: Good Instructions: ED Laceration Small Superf No Sutr Follow-Up: Deandre Herrera MD [Primary Care Provider] - (for wound check in 3days) Comments: Follow-up with your doctor in 3 days for a wound check. Return if you worsen. Especially for redness, swelling, or drainage from the wounds. Crisis Line and is available to talk to someone [email or web address] is also available to chat with someone online if you prefer. There are also many resources on this website and apps for your phone to help with your mental health You can also text the word START to [phone] to chat with someome via text.
[2018-09-06] MEDS ORDERED: TETANUS/DIPHTHERIA/PERTUSSIS 0.5 ML SYRINGE IM ONE (20:40)
== END 2018-09-06 20:56 | disposition home or self-care (01) ==
LOC: EDUNIT# → ED 19:27
DX: S21.011A Laceration without foreign body of right breast, initial encounter (principal); S31.119A Laceration without foreign body of abdominal wall, unspecified quadrant without penetration into peritoneal cavity, initial encounter; X78.9XXA Intentional self-harm by unspecified sharp object, initial encounter; E11.9 Type 2 diabetes mellitus without complications; Z23 Encounter for immunization; F17.200 Nicotine dependence, unspecified, uncomplicated; F31.9 Bipolar disorder, unspecified; F20.9 Schizophrenia, unspecified; F43.10 Post-traumatic stress disorder, unspecified; F31.70 Bipolar disorder, currently in remission, most recent episode unspecified; M51.36 Other intervertebral disc degeneration, lumbar region; M47.9 Spondylosis, unspecified
CPT/HCPCS: 36415; 72100; 80048; 83036; 90471; 99282; 99283

== ENCOUNTER 2018-09-08 13:41 | Outpatient (CLI) | payer MEDICARE, MEDICAID | END 2018-09-08 13:42 | disposition critical access hospital (66) | LOC: EMS 13:41 | PROVIDERS: ATTEND Surgery | DX: R45.851 Suicidal ideations (principal) | CPT/HCPCS: A0425; A0429 ==

== ENCOUNTER 2018-09-08 14:03 | Emergency (ER) | payer MEDICARE, MEDICAID ==
[2018-09-08] MEDS ORDERED: SODIUM CHLORIDE 0.9% 1,000 ML IV ONE (14:19)
[2018-09-08] MEDS ORDERED: ONDANSETRON 4 MG/2 ML VIAL IVP STA ×2 (14:19→16:10)
[2018-09-08] MEDS ORDERED: IPRATROPIUM/ALBUTEROL 3 ML NEB INH STA (14:20)
--- NOTE | 2018-09-08 14:28 | ED Physician Documentation ---
PD HPI MHE - Stated complaint Stated Complaint: MHE - Chief complaint Chief Complaint: MHE - History obtained from History obtained from: Patient - History of Present Illness Primary symptom: Suicidal ideation Timing - onset: Today Pain level max: 2 Pain level now: 2 Contributing factors: Other (Had to give up her cat of 4 years.) Similar symptoms before: Diagnosis, Work up / diagnostics, Treatment Recently seen: Emergency Dept - Additional information Additional information: 53-year-old female with history of COPD, seizure, diabetes and Psychosis with depression, self cutting and suicidal ideation with multiple psych hospitalization (for psychosis, schizophrenia) here with complaint of suicidal thoughts like self cutting today because she had to give up her cat of 4 years And she is feeling depressed about this. Patient states she lives in a [facility] housing. She stated she was admitted to [facility] and would like to go back there. States she has not seen any mental health counselor since she was discharged from [facility]. Patient was seen here September 06 for self cutting injuries. Patient states has not spoken to her family for over 10 years.Patient also states she has been having nausea and vomiting the past couple of days with general body aches. Requesting for pain medication. Review of Systems Ten Systems: 10 systems reviewed and negative Constitutional: reports: Myalgias. denies: Fever, Chills Nose: denies: Rhinorrhea / runny nose Throat: denies: Sore throat Cardiac: denies: Chest pain / pressure Respiratory: denies: Dyspnea, Cough GI: reports: Nausea, Vomiting. denies: Abdominal Pain, Diarrhea Skin: reports: Laceration (s) (Old healed multiple self cutting scars on the arms and recently on her abdomen) Musculoskeletal: denies: Back pain Neurologic: denies: Generalized weakness Psychiatric: reports: Depressed, Suicidal, Anxiety, Insomnia. denies: Homicidal, Hallucinations, Delusions PD PAST MEDICAL HISTORY - Past Medical History Past Medical History: Yes Cardiovascular: Angina, Other Respiratory: COPD, Pneumonia Neuro: Seizure disorder Endocrine/Autoimmune: Type 2 diabetes GI: GERD, Hiatal hernia SCHOOL PATROL: None : None HEENT: None Psych: Depression, Bipolar disorder, Schizophrenia, Post traumatic stress disorder Musculoskeletal: None Derm: None - Past Surgical History Past Surgical History: Yes General: Bowel surgery Ortho: Other /SCHOOL PATROL: 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 HEENT: Cataracts - Present Medications Home Medications: Ambulatory Orders Medication Instructions Recorded Confirmed Divalproex ER [Depakote ER] 500 mg PO BID 12/25/16 08/03/18 Albuterol Sulf [Ventolin Hfa 1 - 2 puffs INH Q4HR PRN #1 inhaler 05/16/18 08/03/18 Inhaler] Mirtazapine [Remeron] 15 mg QPM 08/14/[address] [Depakote Dr] 250 mg BID 09/06/18 09/06/18 OLANZapine [Olanzapine] 10 mg BID 09/06/18 09/06/18 clonazePAM [Clonazepam] 1 mg BID 09/06/18 09/06/18 metFORMIN [Glucophage] 09/06/18 09/06/18 - Allergies Allergies/Adverse Reactions: Allergies Allergy/AdvReac Type Severity Reaction Status Date / Time azithromycin Allergy Severe Hives Verified 09/06/18 19:49 haloperidol Allergy Severe Anaphylaxis Verified 09/06/18 19:49 Penicillins Allergy Severe Anaphylaxis Verified 09/06/18 19:49 amoxicillin [Amoxicillin] Allergy Intermediate Rash Verified 09/06/18 19:49 grapefruit Allergy Intermediate Rash Verified 09/06/18 19:49 iodine Allergy Intermediate Rash Verified 09/06/18 19:49 Sulfa (Sulfonamide Allergy Intermediate Rash Verified 09/06/18 19:49 Antibiotics) haloperidol lactate * AdvReac Rash Verified 09/06/18 19:49 [From Haldol] - Social History Does the pt smoke?: Yes Smoking Status: Current every day smoker Does the pt drink ETOH?: No Does the pt have substance abuse?: No - Immunizations Immunizations are current?: No Immunizations: TDAP >10years/unknown - POLST Patient has POLST: No PD ED PE NORMAL - Vitals Vital signs reviewed: Yes - General General: Alert and oriented X 3, No acute distress, Well developed/nourished - HEENT HEENT: PERRL, EOMI, Moist mucous membranes, Pharynx benign - Neck Neck: Supple, no meningeal sign - Cardiac Cardiac: RRR, No murmur - Respiratory Respiratory: No respiratory distress, Other (Diffuse expiratory wheezing) - Abdomen Abdomen: Normal bowel sounds, Soft, Non tender, Non distended - Back Back: No CVA TTP, No spinal TTP - Derm Derm: Normal color, Warm and dry, Other (Multiple abrasions on the right breast, mid upper abdomen, left lower quadrant: Approximated with Steri-Strips, no erythema, no drainage, no tenderness. Healed scars from self-inflicted wound on both arms.) - Extremities Extremities: No deformity, No tenderness to palpate, Normal ROM s pain, No edema - Neuro Neuro: Alert and oriented X 3, No motor deficit, Normal speech - Psych Psych: Other (Expressing suicidal thoughts of hurting herself by cutting herself. Patient appears sad and tearful when she stated that she feels depressed about giving up her cat that she own for the past 4 years.) Results - Vitals Vitals: Vital Signs - 24 hr 09/08/18 09/08/18 14:05 14:39 Temperature 37.2 C Heart Rate 99 92 Respiratory 14 16 Rate Blood Pressure 135/83 H O2 Saturation 97 Oxygen O2 Source [] Room air O2 Source [] Room air O2 Source Room air - EKG (time done) 1426 Rate: Rate (enter#) (89) Rhythm: NSR [place]: LAD Intervals: Normal IL QRS: Normal Ischemia: Normal ST segments Compare to prior EKG: Unchanged from prior EKG (08/14/18) - Labs Labs: Laboratory Tests 09/08/18 09/08/18 09/08/18 14:13 14:30 14:30 WBC 11.9 H RBC 4.39 Hgb 12.5 Hct 37.6 MCV 85.6 MCH 28.4 MCHC 33.1 RDW 16.8 H Plt Count 271 MPV 9.7 Neut # (Auto) 4.7 Lymph # (Auto) 5.0 H [place] # (Auto) 1.8 H Eos # (Auto) 0.2 Baso # (Auto) 0.2 H Absolute Nucleated RBC 0.01 Nucleated RBC % 0.1 Manual Slide Review Indicated Platelet Estimate NORMAL (130-450,000) Platelet Morphology 1+ LARGE PLATELETS RBC Morph Micro Appear 1+ ANISOCYTOSIS Sodium 142 Potassium 4.0 Chloride 110 Carbon Dioxide 26 Anion Gap 6.0 BUN 7 Creatinine 0.7 Estimated GFR (MDRD) 87 L Glucose 85 Calcium 8.6 Total Bilirubin 0.2 AST 19 ALT 12 Alkaline Phosphatase 58 Troponin I B-Natriuretic Peptide Total Protein 6.3 L Albumin 3.4 Globulin 2.9 Albumin/Globulin Ratio 1.2 Lipase 20 L Urine Color YELLOW Urine Clarity CLEAR Urine pH 7.0 Ur Specific [place] 1.010 Urine Protein NEGATIVE Urine Glucose (UA) NEGATIVE Urine Ketones NEGATIVE Urine Occult Blood NEGATIVE Urine Nitrite NEGATIVE Urine Bilirubin NEGATIVE Urine Urobilinogen 0.2 (NORMAL) Ur Leukocyte Esterase NEGATIVE Ur Microscopic Review NOT INDICATED Urine Culture Comments NOT INDICATED Last Dose Date Last Dose Time Salicylates Urine Opiates Screen NEGATIVE Ur Oxycodone Screen NEGATIVE Urine Methadone Screen NEGATIVE Ur Propoxyphene Screen NEGATIVE Acetaminophen Ur Barbiturates Screen NEGATIVE Valproic Acid Ur Tricyclics Screen NEGATIVE Ur Phencyclidine Scrn NEGATIVE Ur Amphetamine Screen NEGATIVE U Methamphetamines Scrn NEGATIVE U Benzodiazepines Scrn NEGATIVE Urine Cocaine Screen NEGATIVE U Cannabinoids Screen NEGATIVE 09/08/18 09/08/18 09/08/18 14:30 14:30 14:30 WBC RBC Hgb Hct MCV MCH MCHC RDW Plt Count MPV Neut # (Auto) Lymph # (Auto) [place] # (Auto) Eos # (Auto) Baso # (Auto) Absolute Nucleated RBC Nucleated RBC % Manual Slide Review Platelet Estimate Platelet Morphology RBC Morph Micro Appear Sodium Potassium Chloride Carbon Dioxide Anion Gap BUN Creatinine Estimated GFR (MDRD) Glucose Calcium Total Bilirubin AST ALT Alkaline Phosphatase Troponin I < 0.04 B-Natriuretic Peptide Total Protein Albumin Globulin Albumin/Globulin Ratio Lipase Urine Color Urine Clarity Urine pH Ur Specific [place] Urine Protein Urine Glucose (UA) Urine Ketones Urine Occult Blood Urine Nitrite Urine Bilirubin Urine Urobilinogen Ur Leukocyte Esterase Ur Microscopic Review Urine Culture Comments Last Dose Date 09/08/18 Last Dose Time 0730 Salicylates < 6.0 Urine Opiates Screen Ur Oxycodone Screen Urine Methadone Screen Ur Propoxyphene Screen Acetaminophen < 10 L Ur Barbiturates Screen Valproic Acid 74.5 Ur Tricyclics Screen Ur Phencyclidine Scrn Ur Amphetamine Screen U Methamphetamines Scrn U Benzodiazepines Scrn Urine Cocaine Screen U Cannabinoids Screen 09/08/18 14:30 WBC RBC Hgb Hct MCV MCH MCHC RDW Plt Count MPV Neut # (Auto) Lymph # (Auto) [place] # (Auto) Eos # (Auto) Baso # (Auto) Absolute Nucleated RBC Nucleated RBC % Manual Slide Review Platelet Estimate Platelet Morphology RBC Morph Micro Appear Sodium Potassium Chloride Carbon Dioxide Anion Gap BUN Creatinine Estimated GFR (MDRD) Glucose Calcium Total Bilirubin AST ALT Alkaline Phosphatase Troponin I B-Natriuretic Peptide 82 Total Protein Albumin Globulin Albumin/Globulin Ratio Lipase Urine Color Urine Clarity Urine pH Ur Specific [place] Urine Protein Urine Glucose (UA) Urine Ketones Urine Occult Blood Urine Nitrite Urine Bilirubin Urine Urobilinogen Ur Leukocyte Esterase Ur Microscopic Review Urine Culture Comments Last Dose Date Last Dose Time Salicylates Urine Opiates Screen Ur Oxycodone Screen Urine Methadone Screen Ur Propoxyphene Screen Acetaminophen Ur Barbiturates Screen Valproic Acid Ur Tricyclics Screen Ur Phencyclidine Scrn Ur Amphetamine Screen U Methamphetamines Scrn U Benzodiazepines Scrn Urine Cocaine Screen U Cannabinoids Screen PD MEDICAL DECISION MAKING - ED course Complexity details: reviewed results, re-evaluated patient, considered differential (Psychosis NOS, schizophrenia, suicidal ideation, dehydration, bowel obstruction, pneumonia, UTI), d/w patient, d/w consumer experience consultant ED course: 1604 patient inform of test results. She states she still feel nauseous and have some abdominal pain. Abdomen soft nontender. Patient had an episode of nausea and vomiting while in the ER. Lungs decreased expiratory wheezing after 1 DuoNeb. Agreed to have a CAT scan of her abdomen. 1648 social worker health services Jenny in the ER. Case discussed. They know the patient well.There were informed that patient is interested in getting admitted to telecare. They will call [facility] for psych admission. 1707 patient pulled out her IV and attempted to elope. Patient is back into room and informed that she will be transferred to telecare most likely. Pt Expressed comfort that she will be transferred to telecare and agreed to stay in her room. Nurse tech at the bedside watching the patient. We will give Ativan to decrease patient's anxiety.1751 Patient informed that her CT abdominal scan is negative. Patient pacing in the room and stated that Ativan does not work for her. She is requesting for Klonopin.Signout given to evening Dr. Granda. Departure - Departure Disposition: 02 Transfer Acute Care Hosp Clinical Impression: Anxiety attack, Self-inflicted injury, Suicidal ideation Nausea and vomiting Qualifiers: Vomiting type: unspecified Vomiting Intractability: non-intractable Qualified Code(s): R11.2 - Nausea with vomiting, unspecified Abdominal pain Qualifiers: Abdominal location: generalized Qualified Code(s): R10.84 - Generalized abdomin al pain Depression Qualifiers: Depression Type: other depression Qualified Code(s): F32.89 - Other specified depressive episodes Condition: Stable
[2018-09-08 14:31] LABS: MUDS CUTOFF CONCENTRATIONS CUTOFF CONC BELOW:
[2018-09-08 14:34] LABS: BILIRUBIN,URINE NEGATIVE (NEGATIVE); GLUCOSE, URINE (UA) NEGATIVE (NEGATIVE); KETONES,URINE (UA) NEGATIVE (NEGATIVE); LEUKOCYTE ESTERASE, URINE NEGATIVE (NEGATIVE); NITRITE,URINE NEGATIVE (NEGATIVE); OCCULT BLOOD,URINE NEGATIVE (NEGATIVE); PROTEIN,URINE NEGATIVE (NEGATIVE); UROBILINOGEN,URINE 0.2 (NORMAL) E.U./dL (NORMAL)
[2018-09-08] MEDS ORDERED: FAMOTIDINE 20 MG/50 ML 50 ML IV ONE (14:36)
[2018-09-08] MEDS ORDERED: KETOROLAC 30 MG/ML VIAL IVP STA (14:36)
[2018-09-08 14:38] LABS: CLARITY,URINE CLEAR (CLEAR)
[2018-09-08 14:43] LABS: AMPHETAMINE SCREEN,URINE NEGATIVE (NEGATIVE); BENZODIAZEPINES SCREEN, URINE NEGATIVE (NEGATIVE); COCAINE SCREEN URINE NEGATIVE (NEGATIVE); METHADONE SCREEN, URINE NEGATIVE (NEGATIVE); METHAMPHETAMINES SCREEN, URINE NEGATIVE (NEGATIVE); OPIATE SCREEN, URINE NEGATIVE (NEGATIVE); OXYCODONE SCREEN, URINE NEGATIVE (NEGATIVE); PROPOXYPHENE SCREEN, URINE NEGATIVE (NEGATIVE); TRICYCLIC ANTIDEPRESSANT,URINE NEGATIVE (NEGATIVE)
[2018-09-08 14:44] LABS: BASOPHILS # (AUTO) 0.2 10^3/uL (0.0-0.1); BASOPHILS % (AUTO) 1.9 %; EOSINOPHILS # (AUTO) 0.2 10^3/uL (0.0-0.7); EOSINOPHILS % (AUTO) 1.6 %; HGB - HEMOGLOBIN 12.5 g/dL (12.0-16.0); LYMPHOCYTES % (AUTO) 42.1 %; MEAN CORPUSCULAR HEMOGLOBIN 28.4 pg (27.0-31.0); MEAN CORPUSCULAR HGB CONC 33.1 g/dL (32.0-36.0); MEAN CORPUSCULAR VOLUME 85.6 fL (81.0-99.0); MEAN PLATELET VOLUME 9.7 fL (7.9-10.8); MONOCYTES # (AUTO) 1.8 10^3/uL (0.0-1.0); NEUTROPHILS # (AUTO) 4.7 10^3/uL (1.5-6.6); NEUTROPHILS % (AUTO) 39.4 %; PLT - PLATELET COUNT 271 10^3/uL (130-450); RED BLOOD COUNT 4.39 10^6/uL (4.20-5.40); RED CELL DISTRIBUTION WIDTH 16.8 % (12.0-15.0); WHITE BLOOD COUNT 11.9 x10^3/uL (4.8-10.8)
[2018-09-08 14:51] LABS: ALBUMIN 3.4 g/dL (3.2-5.5); ALBUMIN/GLOBULIN RATIO 1.2 (1.0-2.2); BILIRUBIN,TOTAL 0.2 mg/dL (0.2-1.0); CALCIUM 8.6 mg/dL (8.5-10.3); CREATININE 0.7 mg/dL (0.4-1.0); TOTAL PROTEIN 6.3 g/dL (6.7-8.2)
[2018-09-08 15:00] LABS: VALPROIC ACID (DEPAKOTE) 74.5 ug/mL
[2018-09-08 15:03] LABS: ACETAMINOPHEN < 10 ug/mL (10-30); SALICYLATE < 6.0 mg/dL
[2018-09-08 15:12] LABS: PLATELET ESTIMATE, MANUAL NORMAL (130-450,000) (NORMAL); PLATELET MORPHOLOGY 1+ LARGE PLATELETS (NORMAL)
[2018-09-08 15:13] LABS: RBC MORPHOLOGY (MULTIPLE) 1+ ANISOCYTOSIS (NORMAL)
--- NOTE | 2018-09-08 15:43 | XRAY Report ---
Reason: n/v Procedure Date: 09/08/2018 Accession Number: [id number] / [id number] Procedure: XR - Chest 1 View X-Ray CPT Code: 80275 FULL RESULT: EXAM: CHEST RADIOGRAPHY EXAM DATE: 09/08/2018 02:52 PM. CLINICAL HISTORY: N/v. COMPARISON: CHEST 1 VIEW 08/14/2018 7:38 PM. TECHNIQUE: 1 view. FINDINGS: Lungs/Pleura: Mild interstitial prominence noted in both lungs. No consolidation, effusions or pneumothorax. Mediastinum: Mild cardiac enlargement. Other: None. IMPRESSION: 1. Mild nonspecific interstitial prominence. Findings may represent chronic lung changes, infection/inflammation or potentially edema. 2. No acute pulmonary process. RADIA
[2018-09-08] MEDS ORDERED: BACITRACIN OINT TOP ONE (16:24)
[2018-09-08] MEDS ORDERED: LORazepam 0.5 MG TABLET PO STA (17:18)
--- NOTE | 2018-09-08 17:39 | CT Report ---
Reason: pain, n/v Procedure Date: 09/08/2018 Accession Number: [id number] / [id number] Procedure: CT - Abdomen/Pelvis W/O CPT Code: FULL RESULT: EXAM: CT ABDOMEN AND PELVIS EXAM DATE: 09/08/2018 04:42 PM. CLINICAL HISTORY: Pain, n/v. COMPARISONS: ABDOMEN/PELVIS W/ 02/11/2018 5:48 PM. TECHNIQUE: Routine axial helical CT imaging was performed through the abdomen and pelvis without IV contrast. Reconstructions: Coronal and sagittal. In accordance with CT protocol optimization, one or more of the following dose reduction techniques were utilized for this exam: automated exposure control, adjustment of mA and/or KV based on patient size, or use of iterative reconstructive technique. FINDINGS: Lung Bases: Unremarkable. Abdominal Organs: There is a small splenule. The liver, pancreas, adrenal glands, and kidneys demonstrate no acute abnormalities. Gallbladder/bile ducts: The gallbladder is surgically absent. No significant bile duct dilatation. Peritoneal Cavity: No free fluid, free air or lilliana adenopathy. Bowel is grossly unremarkable. No evidence of appendicitis. Pelvic Organs: No bladder stones or wall thickening. Noncontrast images of the visualized pelvic organs are unremarkable. Vasculature: Unremarkable. Other: None. IMPRESSION: Negative noncontrast CT of the abdomen and pelvis.
[2018-09-08] MEDS ORDERED: clonazePAM 0.5 MG TABLET PO STA (17:55)
[2018-09-08] MEDS ORDERED: MIRTAZAPINE 15 MG TABLET PO STA (21:11)
--- NOTE | 2018-09-08 21:40 | ED Physician Documentation ---
PD HPI MHE - Stated complaint Stated Complaint: MHE - Chief complaint Chief Complaint: MHE PD PAST MEDICAL HISTORY - Past Medical History Past Medical History: Yes Cardiovascular: Angina, Other Respiratory: COPD, Pneumonia Neuro: Seizure disorder Endocrine/Autoimmune: Type 2 diabetes GI: GERD, Hiatal hernia BLANKET WINDER HELPER: None : None HEENT: None Psych: Depression, Bipolar disorder, Schizophrenia, Post traumatic stress disorder Musculoskeletal: None Derm: None - Past Surgical History Past Surgical History: Yes General: Bowel surgery Ortho: Other /[employer] HELPER: 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 HEENT: Cataracts - Present Medications Home Medications: Ambulatory Orders Medication Instructions Recorded Confirmed Divalproex ER [Depakote ER] 500 mg PO BID 12/25/16 08/03/18 Albuterol Sulf [Ventolin Hfa 1 - 2 puffs INH Q4HR PRN #1 inhaler 05/16/18 08/03/18 Inhaler] Mirtazapine [Remeron] 15 mg QPM 08/14/[address] [Depakote Dr] 250 mg BID 09/06/18 09/06/18 OLANZapine [Olanzapine] 10 mg BID 09/06/18 09/06/18 clonazePAM [Clonazepam] 1 mg BID 09/06/18 09/06/18 metFORMIN [Glucophage] 09/06/18 09/06/18 - Allergies Allergies/Adverse Reactions: Allergies Allergy/AdvReac Type Severity Reaction Status Date / Time azithromycin Allergy Severe Hives Verified 09/06/18 19:49 haloperidol Allergy Severe Anaphylaxis Verified 09/06/18 19:49 Penicillins Allergy Severe Anaphylaxis Verified 09/06/18 19:49 amoxicillin [Amoxicillin] Allergy Intermediate Rash Verified 09/06/18 19:49 grapefruit Allergy Intermediate Rash Verified 09/06/18 19:49 iodine Allergy Intermediate Rash Verified 09/06/18 19:49 Sulfa (Sulfonamide Allergy Intermediate Rash Verified 09/06/18 19:49 Antibiotics) haloperidol lactate * AdvReac Rash Verified 09/06/18 19:49 [From Haldol] - Social History Does the pt smoke?: Yes Smoking Status: Current every day smoker Does the pt drink ETOH?: No Does the pt have substance abuse?: No - Immunizations Immunizations are current?: No Immunizations: TDAP >10years/unknown - POLST Patient has POLST: No Results - Vitals Vitals: Vital Signs - 24 hr 09/08/18 09/08/18 14:05 14:39 Temperature 37.2 C Heart Rate 99 92 Respiratory 14 16 Rate Blood Pressure 135/83 H O2 Saturation 97 Oxygen O2 Source [] Room air O2 Source [] Room air O2 Source Room air - Labs Labs: Laboratory Tests 09/08/18 09/08/18 09/08/18 14:13 14:30 14:30 WBC 11.9 H RBC 4.39 Hgb 12.5 Hct 37.6 MCV 85.6 MCH 28.4 MCHC 33.1 RDW 16.8 H Plt Count 271 MPV 9.7 Neut # (Auto) 4.7 Lymph # (Auto) 5.0 H [place] # (Auto) 1.8 H Eos # (Auto) 0.2 Baso # (Auto) 0.2 H Absolute Nucleated RBC 0.01 Nucleated RBC % 0.1 Manual Slide Review Indicated Platelet Estimate NORMAL (130-450,000) Platelet Morphology 1+ LARGE PLATELETS RBC Morph Micro Appear 1+ ANISOCYTOSIS Sodium 142 Potassium 4.0 Chloride 110 Carbon Dioxide 26 Anion Gap 6.0 BUN 7 Creatinine 0.7 Estimated GFR (MDRD) 87 L Glucose 85 Calcium 8.6 Total Bilirubin 0.2 AST 19 ALT 12 Alkaline Phosphatase 58 Troponin I B-Natriuretic Peptide Total Protein 6.3 L Albumin 3.4 Globulin 2.9 Albumin/Globulin Ratio 1.2 Lipase 20 L Urine Color YELLOW Urine Clarity CLEAR Urine pH 7.0 Ur Specific [place] 1.010 Urine Protein NEGATIVE Urine Glucose (UA) NEGATIVE Urine Ketones NEGATIVE Urine Occult Blood NEGATIVE Urine Nitrite NEGATIVE Urine Bilirubin NEGATIVE Urine Urobilinogen 0.2 (NORMAL) Ur Leukocyte Esterase NEGATIVE Ur Microscopic Review NOT INDICATED Urine Culture Comments NOT INDICATED Last Dose Date Last Dose Time Salicylates Urine Opiates Screen NEGATIVE Ur Oxycodone Screen NEGATIVE Urine Methadone Screen NEGATIVE Ur Propoxyphene Screen NEGATIVE Acetaminophen Ur Barbiturates Screen NEGATIVE Valproic Acid Ur Tricyclics Screen NEGATIVE Ur Phencyclidine Scrn NEGATIVE Ur Amphetamine Screen NEGATIVE U Methamphetamines Scrn NEGATIVE U Benzodiazepines Scrn NEGATIVE Urine Cocaine Screen NEGATIVE U Cannabinoids Screen NEGATIVE 09/08/18 09/08/18 09/08/18 14:30 14:30 14:30 WBC RBC Hgb Hct MCV MCH MCHC RDW Plt Count MPV Neut # (Auto) Lymph # (Auto) [place] # (Auto) Eos # (Auto) Baso # (Auto) Absolute Nucleated RBC Nucleated RBC % Manual Slide Review Platelet Estimate Platelet Morphology RBC Morph Micro Appear Sodium Potassium Chloride Carbon Dioxide Anion Gap BUN Creatinine Estimated GFR (MDRD) Glucose Calcium Total Bilirubin AST ALT Alkaline Phosphatase Troponin I < 0.04 B-Natriuretic Peptide Total Protein Albumin Globulin Albumin/Globulin Ratio Lipase Urine Color Urine Clarity Urine pH Ur Specific [place] Urine Protein Urine Glucose (UA) Urine Ketones Urine Occult Blood Urine Nitrite Urine Bilirubin Urine Urobilinogen Ur Leukocyte Esterase Ur Microscopic Review Urine Culture Comments Last Dose Date 09/08/18 Last Dose Time 0730 Salicylates < 6.0 Urine Opiates Screen Ur Oxycodone Screen Urine Methadone Screen Ur Propoxyphene Screen Acetaminophen < 10 L Ur Barbiturates Screen Valproic Acid 74.5 Ur Tricyclics Screen Ur Phencyclidine Scrn Ur Amphetamine Screen U Methamphetamines Scrn U Benzodiazepines Scrn Urine Cocaine Screen U Cannabinoids Screen 09/08/18 14:30 WBC RBC Hgb Hct MCV MCH MCHC RDW Plt Count MPV Neut # (Auto) Lymph # (Auto) [place] # (Auto) Eos # (Auto) Baso # (Auto) Absolute Nucleated RBC Nucleated RBC % Manual Slide Review Platelet Estimate Platelet Morphology RBC Morph Micro Appear Sodium Potassium Chloride Carbon Dioxide Anion Gap BUN Creatinine Estimated GFR (MDRD) Glucose Calcium Total Bilirubin AST ALT Alkaline Phosphatase Troponin I B-Natriuretic Peptide 82 Total Protein Albumin Globulin Albumin/Globulin Ratio Lipase Urine Color Urine Clarity Urine pH Ur Specific [place] Urine Protein Urine Glucose (UA) Urine Ketones Urine Occult Blood Urine Nitrite Urine Bilirubin Urine Urobilinogen Ur Leukocyte Esterase Ur Microscopic Review Urine Culture Comments Last Dose Date Last Dose Time Salicylates Urine Opiates Screen Ur Oxycodone Screen Urine Methadone Screen Ur Propoxyphene Screen Acetaminophen Ur Barbiturates Screen Valproic Acid Ur Tricyclics Screen Ur Phencyclidine Scrn Ur Amphetamine Screen U Methamphetamines Scrn U Benzodiazepines Scrn Urine Cocaine Screen U Cannabinoids Screen PD MEDICAL DECISION MAKING - ED course ED course: See Dr. Manuel's original history and physical. Evaluated by social work and found not to be a good nay voluntary corroborated by the fact that the patient pulled out her IV and ran out of the emergency department in a gown spraying blood all down the devine as she went. She was escorted back to her bed. The marriage and family social worker call the [facility] who detained her to [facility] [place] [facility]. She was accepted there by LATIA Barriga and cobras were completed. She is stable for transport for psychiatric evaluation and medically clear for same. Departure - Departure Disposition: 65 Psych Hosp/Unit DC/Xfer Clinical Impression: Anxiety attack, Self-inflicted injury, Suicidal ideation Nausea and vomiting Qualifiers: Vomiting type: unspecified Vomiting Intractability: non-intractable Qualified Code(s): R11.2 - Nausea with vomiting, unspecified Abdominal pain Qualifiers: Abdominal location: generalized Qualified Code(s): R10.84 - Generalized abdominal pain Depression Qualifiers: Depression Type: other depression Qualified Code(s): F32.89 - Other specified depressive episodes Condition: Stable
[2018-09-08] MEDS ORDERED: MIDAZOLAM 2 MG/2 ML VIAL IM STA (21:52)
[2018-09-08] MEDS ORDERED: OLANZapine 10 MG VIAL IM STA (21:54)
[2018-09-09 00:11] VITALS: BP 130/68
== END 2018-09-09 00:33 ==
LOC: EDUNIT# → ED 14:03
DX: F41.9 Anxiety disorder, unspecified (principal); S20.111A Abrasion of breast, right breast, initial encounter; S30.811A Abrasion of abdominal wall, initial encounter; X83.8XXA Intentional self-harm by other specified means, initial encounter; R45.851 Suicidal ideations; R11.2 Nausea with vomiting, unspecified; R10.84 Generalized abdominal pain; F32.89 Other specified depressive episodes; F20.9 Schizophrenia, unspecified; R06.2 Wheezing; E11.9 Type 2 diabetes mellitus without complications; Z79.84 Long term (current) use of oral hypoglycemic drugs; F17.200 Nicotine dependence, unspecified, uncomplicated
CPT/HCPCS: 36415; 71045; 74176; 80053; 80164; 81003; 83690; 83880; 84484; 85025; 87086; 93005; 94640; 96365; 96372; 96375; 96376; 99285; A9270; 80306; 80307; 80329; 81001; 99283; 99284

== ENCOUNTER 2018-09-20 08:00 | Outpatient (CLI) | payer MEDICARE, MEDICAID ==
[2018-09-20 19:33] LABS: CALCIUM 9.2 mg/dL (8.5-10.3); CREATININE 0.6 mg/dL (0.4-1.0)
[2018-09-20 19:48] LABS: HB2 TOTAL 14.1 g/dL; HEMOGLOBIN A1C 0.6 g/dL
== END 2018-09-20 23:59 | disposition home or self-care (01) ==
LOC: LAB.N 08:00
PROVIDERS: ATTEND Nurse Practitioner
DX: R73.01 Impaired fasting glucose (principal)
CPT/HCPCS: 36415; 80048; 83036

== ENCOUNTER 2018-09-21 19:38 | Outpatient (CLI) | payer MEDICARE, MEDICAID | END 2018-09-21 19:39 | disposition critical access hospital (66) | LOC: EMS 19:38 | PROVIDERS: ATTEND Surgery | DX: T39.1X2A Poisoning by 4-Aminophenol derivatives, intentional self-harm, initial encounter (principal) | CPT/HCPCS: A0425; A0427 ==

== ENCOUNTER 2018-09-21 19:55 | Emergency (ER) | payer MEDICARE, MEDICAID ==
--- NOTE | 2018-09-21 20:05 | ED Physician Documentation ---
PD HPI OVERDOSE - Stated complaint Stated Complaint: OD - History obtained from History obtained from: Patient, EMS - History of Present Illness Timing - onset: Today (At about 7 PM she took several tablets of 2 different types of Tylenol complaint containing sleep aids in an effort to sleep. Initially denied suicidal ideation but "needs help.") Review of Systems Ten Systems: 10 systems reviewed and negative Constitutional: reports: Reviewed and negative Throat: reports: Reviewed and negative Cardiac: reports: Reviewed and negative Respiratory: reports: Reviewed and negative PD PAST MEDICAL HISTORY - Past Medical History Cardiovascular: Angina, Other Respiratory: COPD, Pneumonia Neuro: Seizure disorder Endocrine/Autoimmune: Type 2 diabetes GI: GERD, Hiatal hernia BOW MAKER CUSTOM: None : None HEENT: None Psych: Depression, Bipolar disorder, Schizophrenia, Post traumatic stress disorder Musculoskeletal: None Derm: None - Past Surgical History Past Surgical History: Yes General: Bowel surgery Ortho: Other /BOW MAKER CUSTOM: 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 HEENT: Cataracts - Present Medications Home Medications: Ambulatory Orders Medication Instructions Recorded Confirmed RX: Divalproex ER [Depakote ER] 500 mg PO BID 12/25/16 09/22/18 RX: Albuterol Sulf [Ventolin Hfa 1 - 2 puffs INH Q4HR PRN #1 inhaler 05/16/18 09/22/18 Inhaler] Mirtazapine [Remeron] 15 mg ORAL QPM 08/14/18 09/22/18 OLANZapine [Olanzapine] 10 mg ORAL BID 09/06/18 09/22/18 RX: Divalproex Dr [Depakote Dr] 250 mg BID 09/06/18 09/22/18 RX: metFORMIN [Glucophage] 500 mg ORAL BID 09/06/18 09/22/18 clonazePAM [Clonazepam] 1 mg ORAL BID 09/06/18 09/22/18 - Allergies Allergies/Adverse Reactions: Allergies Allergy/AdvReac Type Severity Reaction Status Date / Time azithromycin Allergy Severe Hives Verified 09/21/18 20:02 haloperidol Allergy Severe Anaphylaxis Verified 09/21/18 20:02 Penicillins Allergy Severe Anaphylaxis Verified 09/21/18 20:02 amoxicillin [Amoxicillin] Allergy Intermediate Rash Verified 09/21/18 20:02 grapefruit Allergy Intermediate Rash Verified 09/21/18 20:02 iodine Allergy Intermediate Rash Verified 09/21/18 20:02 Sulfa (Sulfonamide Allergy Intermediate Rash Verified 09/21/18 20:02 Antibiotics) haloperidol lactate * AdvReac Rash Verified 09/21/18 20:02 [From Haldol] - Social History Does the pt smoke?: Yes Smoking Status: Current every day smoker Does the pt drink ETOH?: No Does the pt have substance abuse?: No - Immunizations Immunizations are current?: No Immunizations: TDAP >10years/unknown - POLST Patient has POLST: No PD ED PE NORMAL - Vitals Vital signs reviewed: Yes - General General: Alert and oriented X 3, No acute distress - HEENT HEENT: PERRL, EOMI - Neck Neck: Supple, no meningeal sign, No bony TTP - Cardiac Cardiac: RRR, No murmur - Respiratory Respiratory: No respiratory distress, Clear bilaterally - Abdomen Abdomen: Normal bowel sounds, Soft, Non tender - Back Back: No CVA TTP, No spinal TTP - Derm Derm: Normal color, Warm and dry - Extremities Extremities: No edema, No calf tenderness / cord - Neuro Neuro: Alert and oriented X 3, Normal speech Results - Vitals Vitals: Vital Signs - 24 hr 09/21/18 09/21/18 09/21/18 20:02 21:25 22:25 Temperature 36.2 C L Heart Rate 89 65 64 Respiratory 16 14 13 Rate Blood Pressure 159/95 H 150/85 H 142/73 H O2 Saturation 96 91 L 91 L 09/21/18 09/22/18 09/22/18 23:06 00:10 02:39 Temperature Heart Rate 72 69 63 Respiratory 13 17 13 Rate Blood Pressure 126/65 154/82 H 109/62 O2 Saturation 95 97 94 09/22/18 09/22/18 09/22/18 04:14 06:12 07:43 Temperature 36.4 C L Heart Rate 67 65 68 Respiratory 17 18 20 Rate Blood Pressure 122/64 125/64 O2 Saturation 95 95 Oxygen O2 Source [] Room air O2 Source [] Room air O2 Source Room air - EKG (time done) 1958 Rate: Rate (enter#) (83) Rhythm: NSR [place]: Normal Intervals: Normal [place], Other (Mild imcomplete IVCD RBBB/LAFP QRSd 100) QRS: Normal Ischemia: Normal ST segments Computer interpretation: Agree with computer - Labs Labs: Laboratory Tests 09/21/18 09/21/18 09/21/18 20:11 20:28 20:28 WBC 14.2 H RBC 4.71 Hgb 13.3 Hct 42.3 MCV 89.9 MCH 28.2 MCHC 31.4 L RDW 17.6 H Plt Count 288 MPV 9.2 Neut # (Auto) 5.5 Lymph # (Auto) 6.4 H [place] # (Auto) 2.0 H Eos # (Auto) 0.3 Baso # (Auto) 0.1 Absolute Nucleated RBC 0.02 Nucleated RBC % 0.1 Sodium 143 Potassium 3.4 L Chloride 108 Carbon Dioxide 24 Anion Gap 11.0 BUN 14 Creatinine 0.6 Estimated GFR (MDRD) 104 Glucose 70 Calcium 8.8 Total Bilirubin 0.7 AST 19 ALT 14 Alkaline Phosphatase 61 Total Protein 7.0 Albumin 3.5 Globulin 3.5 Albumin/Globulin Ratio 1.0 Lipase 20 L Urine Color YELLOW Urine Clarity CLEAR Urine pH 6.0 Ur Specific [place] <=1.005 Urine Protein NEGATIVE Urine Glucose (UA) NEGATIVE Urine Ketones NEGATIVE Urine Occult Blood NEGATIVE Urine Nitrite NEGATIVE Urine Bilirubin NEGATIVE Urine Urobilinogen 0.2 (NORMAL) Ur Leukocyte Esterase NEGATIVE Ur Microscopic Review NOT INDICATED Urine Culture Comments NOT INDICATED Last Dose Date Last Dose Time Salicylates < 6.0 Urine Opiates Screen NEGATIVE Ur Oxycodone Screen NEGATIVE Urine Methadone Screen NEGATIVE Ur Propoxyphene Screen NEGATIVE Acetaminophen 75 H* Ur Barbiturates Screen NEGATIVE Valproic Acid Ur Tricyclics Screen NEGATIVE Ur Phencyclidine Scrn NEGATIVE Ur Amphetamine Screen NEGATIVE U Methamphetamines Scrn NEGATIVE U Benzodiazepines Scrn NEGATIVE Urine Cocaine Screen NEGATIVE U Cannabinoids Screen NEGATIVE Ethyl Alcohol < 5.0 09/21/18 09/21/18 20:28 23:07 WBC RBC Hgb Hct MCV MCH MCHC RDW Plt Count MPV Neut # (Auto) Lymph # (Auto) [place] # (Auto) Eos # (Auto) Baso # (Auto) Absolute Nucleated RBC Nucleated RBC % Sodium Potassium Chloride Carbon Dioxide Anion Gap BUN Creatinine Estimated GFR (MDRD) Glucose Calcium Total Bilirubin AST ALT Alkaline Phosphatase Total Protein Albumin Globulin Albumin/Globulin Ratio Lipase Urine Color Urine Clarity Urine pH Ur Specific Rand Urine Protein Urine Glucose (UA) Urine Ketones Urine Occult Blood Urine Nitrite Urine Bilirubin Urine Urobilinogen Ur Leukocyte Esterase Ur Microscopic Review Urine Culture Comments Last Dose Date UNKNOWN Last Dose Time UNKNOWN Salicylates Urine Opiates Screen Ur Oxycodone Screen Urine Methadone Screen Ur Propoxyphene Screen Acetaminophen 27 Ur Barbiturates Screen Valproic Acid 55.8 Ur Tricyclics Screen Ur Phencyclidine Scrn Ur Amphetamine Screen U Methamphetamines Scrn U Benzodiazepines Scrn Urine Cocaine Screen U Cannabinoids Screen Ethyl Alcohol PD MEDICAL DECISION MAKING - ED course ED course: $hr tylenol level non toxic, wanted to stay O/N to talk with DEVELOPMENT PROFESSIONAL in AM. S/o to business intern at 11pm 09/21/18. Departure - Departure Disposition: 01 Home, Self Care Clinical Impression: Overdose Condition: Good Instructions: ED Overdose Intentional Comments: The overdose did not cause you harm You told us that you only took the medications so you could sleep and not to hurt yourself You have promised the ER staff and the vp digital marketing social media and crm you will not harm yourself if you go home You have a follow up appointment with your rehabilitation caseworker tomorrow Your xray was fine - no pneumonia - continue your inhalers and stop smoking Return if worse. Discharge Date/Time: 09/22/18 10:31
[2018-09-21 20:16] LABS: BILIRUBIN,URINE NEGATIVE (NEGATIVE); GLUCOSE, URINE (UA) NEGATIVE (NEGATIVE); KETONES,URINE (UA) NEGATIVE (NEGATIVE); LEUKOCYTE ESTERASE, URINE NEGATIVE (NEGATIVE); MUDS CUTOFF CONCENTRATIONS CUTOFF CONC BELOW:; NITRITE,URINE NEGATIVE (NEGATIVE); OCCULT BLOOD,URINE NEGATIVE (NEGATIVE); PROTEIN,URINE NEGATIVE (NEGATIVE); UROBILINOGEN,URINE 0.2 (NORMAL) E.U./dL (NORMAL)
[2018-09-21 20:22] LABS: CLARITY,URINE CLEAR (CLEAR)
[2018-09-21 20:27] LABS: AMPHETAMINE SCREEN,URINE NEGATIVE (NEGATIVE); BENZODIAZEPINES SCREEN, URINE NEGATIVE (NEGATIVE); COCAINE SCREEN URINE NEGATIVE (NEGATIVE); METHADONE SCREEN, URINE NEGATIVE (NEGATIVE); METHAMPHETAMINES SCREEN, URINE NEGATIVE (NEGATIVE); OPIATE SCREEN, URINE NEGATIVE (NEGATIVE); OXYCODONE SCREEN, URINE NEGATIVE (NEGATIVE); PROPOXYPHENE SCREEN, URINE NEGATIVE (NEGATIVE); TRICYCLIC ANTIDEPRESSANT,URINE NEGATIVE (NEGATIVE)
[2018-09-21 20:36] LABS: BASOPHILS # (AUTO) 0.1 10^3/uL (0.0-0.1); BASOPHILS % (AUTO) 0.5 %; EOSINOPHILS # (AUTO) 0.3 10^3/uL (0.0-0.7); EOSINOPHILS % (AUTO) 2.2 %; HGB - HEMOGLOBIN 13.3 g/dL (12.0-16.0); LYMPHOCYTES # (AUTO) 6.4 10^3/uL (1.5-3.5); LYMPHOCYTES % (AUTO) 44.8 %; MEAN CORPUSCULAR HEMOGLOBIN 28.2 pg (27.0-31.0); MEAN CORPUSCULAR HGB CONC 31.4 g/dL (32.0-36.0); MEAN CORPUSCULAR VOLUME 89.9 fL (81.0-99.0); MEAN PLATELET VOLUME 9.2 fL (7.9-10.8); MONOCYTES % (AUTO) 13.8 %; NEUTROPHILS # (AUTO) 5.5 10^3/uL (1.5-6.6); NEUTROPHILS % (AUTO) 38.7 %; PLT - PLATELET COUNT 288 10^3/uL (130-450); RED BLOOD COUNT 4.71 10^6/uL (4.20-5.40); RED CELL DISTRIBUTION WIDTH 17.6 % (12.0-15.0); WHITE BLOOD COUNT 14.2 x10^3/uL (4.8-10.8)
[2018-09-21 20:52] LABS: ALBUMIN 3.5 g/dL (3.2-5.5); ALKALINE PHOSPHATASE 61 IU/L (42-121); ALT ALANINE AMINOTRANSFERASE 14 IU/L (10-60); AST ASPARTATE AMINOTRANSFERASE 19 IU/L (10-42); BILIRUBIN,TOTAL 0.7 mg/dL (0.2-1.0); BUN - BLOOD UREA NITROGEN 14 mg/dL (6-20); CALCIUM 8.8 mg/dL (8.5-10.3); CARBON DIOXIDE - CO2 24 mmol/L (21-32); CHLORIDE 108 mmol/L (101-111); CREATININE 0.6 mg/dL (0.4-1.0); GFR - MDRD 104 (>89); GLUCOSE 70 mg/dL (70-100); LIPASE 20 U/L (22-51); SODIUM 143 mmol/L (135-145)
[2018-09-21 20:57] LABS: ACETAMINOPHEN 75 ug/mL (10-30); SALICYLATE < 6.0 mg/dL
[2018-09-21 21:02] LABS: VALPROIC ACID (DEPAKOTE) 55.8 ug/mL
[2018-09-22 06:17] VITALS: BP 125/64
[2018-09-22] MEDS ORDERED: ALBUTEROL NEB 2.5 MG/3 ML INH STA (07:24)
--- NOTE | 2018-09-22 07:27 | ED Physician Documentation ---
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: None : None HEENT: None Psych: Depression, Bipolar disorder, Schizophrenia, Post traumatic stress disorder Musculoskeletal: None Derm: None - Past Surgical History Past Surgical History: Yes General: Bowel surgery Ortho: Other /MACHINE BINDER STRIPPER: 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 HEENT: Cataracts - Present Medications Home Medications: Ambulatory Orders Medication Instructions Recorded Confirmed Divalproex ER [Depakote ER] 500 mg PO BID 12/25/16 09/22/18 Albuterol Sulf [Ventolin Hfa 1 - 2 puffs INH Q4HR PRN #1 inhaler 05/16/18 09/22/18 Inhaler] Mirtazapine [Remeron] 15 mg ORAL QPM 08/14/18 09/22/[address] [Depakote Dr] 250 mg BID 09/06/18 09/22/18 OLANZapine [Olanzapine] 10 mg ORAL BID 09/06/18 09/22/18 clonazePAM [Clonazepam] 1 mg ORAL BID 09/06/18 09/22/18 metFORMIN [Glucophage] 500 mg ORAL BID 09/06/18 09/22/18 - Allergies Allergies/Adverse Reactions: Allergies Allergy/AdvReac Type Severity Reaction Status Date / Time azithromycin Allergy Severe Hives Verified 09/21/18 20:02 haloperidol Allergy Severe Anaphylaxis Verified 09/21/18 20:02 Penicillins Allergy Severe Anaphylaxis Verified 09/21/18 20:02 amoxicillin [Amoxicillin] Allergy Intermediate Rash Verified 09/21/18 20:02 grapefruit Allergy Intermediate Rash Verified 09/21/18 20:02 iodine Allergy Intermediate Rash Verified 09/21/18 20:02 Sulfa (Sulfonamide Allergy Intermediate Rash Verified 09/21/18 20:02 Antibiotics) haloperidol lactate * AdvReac Rash Verified 09/21/18 20:02 [From Haldol] - Social History Does the pt smoke?: Yes Smoking Status: Current every day smoker Does the pt drink ETOH?: No Does the pt have substance abuse?: No - Immunizations Immunizations are current?: No Immunizations: TDAP >10years/unknown - POLST Patient has POLST: No Results - Vitals Vitals: Vital Signs - 24 hr 09/21/18 09/21/18 09/21/18 20:02 21:25 22:25 Temperature 36.2 C L Heart Rate 89 65 64 Respiratory 16 14 13 Rate Blood Pressure 159/95 H 150/85 H 142/73 H O2 Saturation 96 91 L 91 L 09/21/18 09/22/18 09/22/18 23:06 00:10 02:39 Temperature Heart Rate 72 69 63 Respiratory 13 17 13 Rate Blood Pressure 126/65 154/82 H 109/62 O2 Saturation 95 97 94 09/22/18 09/22/18 09/22/18 04:14 06:12 07:43 Temperature 36.4 C L Heart Rate 67 65 68 Respiratory 17 18 20 Rate Blood Pressure 122/64 125/64 O2 Saturation 95 95 Oxygen O2 Source [] Room air O2 Source [] Room air O2 Source Room air - Labs Labs: Laboratory Tests 09/21/18 09/21/18 09/21/18 20:11 20:28 20:28 WBC 14.2 H RBC 4.71 Hgb 13.3 Hct 42.3 MCV 89.9 MCH 28.2 MCHC 31.4 L RDW 17.6 H Plt Count 288 MPV 9.2 Neut # (Auto) 5.5 Lymph # (Auto) 6.4 H [place] # (Auto) 2.0 H Eos # (Auto) 0.3 Baso # (Auto) 0.1 Absolute Nucleated RBC 0.02 Nucleated RBC % 0.1 Sodium 143 Potassium 3.4 L Chloride 108 Carbon Dioxide 24 Anion Gap 11.0 BUN 14 Creatinine 0.6 Estimated GFR (MDRD) 104 Glucose 70 Calcium 8.8 Total Bilirubin 0.7 AST 19 ALT 14 Alkaline Phosphatase 61 Total Protein 7.0 Albumin 3.5 Globulin 3.5 Albumin/Globulin Ratio 1.0 Lipase 20 L Urine Color YELLOW Urine Clarity CLEAR Urine pH 6.0 Ur Specific [place] <=1.005 Urine Protein NEGATIVE Urine Glucose (UA) NEGATIVE Urine Ketones NEGATIVE Urine Occult Blood NEGATIVE Urine Nitrite NEGATIVE Urine Bilirubin NEGATIVE Urine Urobilinogen 0.2 (NORMAL) Ur Leukocyte Esterase NEGATIVE Ur Microscopic Review NOT INDICATED Urine Culture Comments NOT INDICATED Last Dose Date Last Dose Time Salicylates < 6.0 Urine Opiates Screen NEGATIVE Ur Oxycodone Screen NEGATIVE Urine Methadone Screen NEGATIVE Ur Propoxyphene Screen NEGATIVE Acetaminophen 75 H* Ur Barbiturates Screen NEGATIVE Valproic Acid Ur Tricyclics Screen NEGATIVE Ur Phencyclidine Scrn NEGATIVE Ur Amphetamine Screen NEGATIVE U Methamphetamines Scrn NEGATIVE U Benzodiazepines Scrn NEGATIVE Urine Cocaine Screen NEGATIVE U Cannabinoids Screen NEGATIVE Ethyl Alcohol < 5.0 09/21/18 09/21/18 20:28 23:07 WBC RBC Hgb Hct MCV MCH MCHC RDW Plt Count MPV Neut # (Auto) Lymph # (Auto) [place] # (Auto) Eos # (Auto) Baso # (Auto) Absolute Nucleated RBC Nucleated RBC % Sodium Potassium Chloride Carbon Dioxide Anion Gap BUN Creatinine Estimated GFR (MDRD) Glucose Calcium Total Bilirubin AST ALT Alkaline Phosphatase Total Protein Albumin Globulin Albumin/Globulin Ratio Lipase Urine Color Urine Clarity Urine pH Ur Specific [place] Urine Protein Urine Glucose (UA) Urine Ketones Urine Occult Blood Urine Nitrite Urine Bilirubin Urine Urobilinogen Ur Leukocyte Esterase Ur Microscopic Review Urine Culture Comments Last Dose Date UNKNOWN Last Dose Time UNKNOWN Salicylates Urine Opiates Screen Ur Oxycodone Screen Urine Methadone Screen Ur Propoxyphene Screen Acetaminophen 27 Ur Barbiturates Screen Valproic Acid 55.8 Ur Tricyclics Screen Ur Phencyclidine Scrn Ur Amphetamine Screen U Methamphetamines Scrn U Benzodiazepines Scrn Urine Cocaine Screen U Cannabinoids Screen Ethyl Alcohol - Rads (name of study) CXR Radiology: See rad report (no pna) PD MEDICAL DECISION MAKING - ED course ED course: assumed care 7 AM 09/22/18 53 f well known to our E intentional OD on tylenol PM and sleep aid yesterday she states wanted to sleep not kill herself medically clear awaiting SW I went to see pt she is awake alert conversive she states did not try to kill herself but this type of action is typical for her impulsive behavior she is also complainf of a deep productive cough she has COPD and is an every day smoker no fever NVD VS noted RRR mikaela wheezing no leg swelling ordered CXR and neb and awaiting SW eval pt took her usual AM meds seen by SHARMIN contracts for safety january dc per SHARMIN getting her a taxi home pt has follow up with her case management specialist tomorrow Departure - Departure Disposition: Home, Self Care Clinical Impression: Overdose Qualifiers: Encounter type: initial encounter Injury intent: undetermined intent Qualified Code(s): T50.904A - Poisoning by unspecified drugs, medicaments and biological substances, undetermined, initial encounter Condition: Good Instructions: ED Overdose Intentional Comments: The overdose did not cause you harm You told us that you only took the medications so you could sleep and not to hurt yourself You have promised the ER staff and the social media marketing specialist you will not harm yourself if you go home You have a follow up appointment with your case management specialist tomorrow Your xray was fine - no pneumonia - continue your inhalers and stop smoking Return if worse.
--- NOTE | 2018-09-22 08:05 | XRAY Report ---
Reason: cough wheeze Procedure Date: 09/22/2018 Accession Number: [id number] / [id number] Procedure: XR - Chest 2 View X-Ray CPT Code: 75657 FULL RESULT: EXAM: CHEST RADIOGRAPHY EXAM DATE: 09/22/2018 07:41 AM. CLINICAL HISTORY: Cough wheeze. COMPARISON: 09/08/2018. TECHNIQUE: 2 views. FINDINGS: Lungs/Pleura: Slight increase in the interstitial markings. No consolidation, pleural effusion or pneumothorax. The degree of aeration is symmetric and within normal limits. Mediastinum: Heart and mediastinal contours are unremarkable. Other: Stable osseous structures. IMPRESSION: Mild interstitial prominence may represent airway inflammation. No focal pneumonia. RADIA
== END 2018-09-22 10:31 | disposition home or self-care (01) ==
LOC: EDUNIT# → ED 19:55
DX: T39.1X1A Poisoning by 4-Aminophenol derivatives, accidental (unintentional), initial encounter (principal); I45.2 Bifascicular block; E11.9 Type 2 diabetes mellitus without complications; Z79.84 Long term (current) use of oral hypoglycemic drugs; F17.200 Nicotine dependence, unspecified, uncomplicated; R06.2 Wheezing
CPT/HCPCS: 36415; 71046; 80053; 80164; 80306; 80307; 80320; 80329; 81001; 81003; 83690; 85025; 87086; 93005; 94640; 99283; 99285

== ENCOUNTER 2018-09-23 10:15 | Emergency (ER) | payer MEDICARE, MEDICAID ==
[2018-09-23 10:38] LABS: BASOPHILS # (AUTO) 0.1 10^3/uL (0.0-0.1); BASOPHILS % (AUTO) 0.8 %; EOSINOPHILS # (AUTO) 0.2 10^3/uL (0.0-0.7); EOSINOPHILS % (AUTO) 1.3 %; HGB - HEMOGLOBIN 13.6 g/dL (12.0-16.0); LYMPHOCYTES # (AUTO) 5.2 10^3/uL (1.5-3.5); LYMPHOCYTES % (AUTO) 39.8 %; MEAN CORPUSCULAR HEMOGLOBIN 28.8 pg (27.0-31.0); MEAN CORPUSCULAR HGB CONC 33.3 g/dL (32.0-36.0); MEAN CORPUSCULAR VOLUME 86.6 fL (81.0-99.0); MEAN PLATELET VOLUME 8.9 fL (7.9-10.8); MONOCYTES # (AUTO) 1.7 10^3/uL (0.0-1.0); MONOCYTES % (AUTO) 13.1 %; MUDS CUTOFF CONCENTRATIONS CUTOFF CONC BELOW:; NEUTROPHILS # (AUTO) 5.8 10^3/uL (1.5-6.6); PLT - PLATELET COUNT 315 10^3/uL (130-450); RED BLOOD COUNT 4.72 10^6/uL (4.20-5.40); RED CELL DISTRIBUTION WIDTH 17.6 % (12.0-15.0)
[2018-09-23 10:41] LABS: BILIRUBIN,URINE NEGATIVE (NEGATIVE); GLUCOSE, URINE (UA) NEGATIVE (NEGATIVE); KETONES,URINE (UA) NEGATIVE (NEGATIVE); LEUKOCYTE ESTERASE, URINE NEGATIVE (NEGATIVE); NITRITE,URINE NEGATIVE (NEGATIVE); OCCULT BLOOD,URINE NEGATIVE (NEGATIVE); PROTEIN,URINE NEGATIVE (NEGATIVE); UROBILINOGEN,URINE 0.2 (NORMAL) E.U./dL (NORMAL)
[2018-09-23 10:42] LABS: CLARITY,URINE CLEAR (CLEAR)
[2018-09-23 10:51] LABS: AMPHETAMINE SCREEN,URINE NEGATIVE (NEGATIVE); BENZODIAZEPINES SCREEN, URINE NEGATIVE (NEGATIVE); COCAINE SCREEN URINE NEGATIVE (NEGATIVE); METHADONE SCREEN, URINE NEGATIVE (NEGATIVE); METHAMPHETAMINES SCREEN, URINE NEGATIVE (NEGATIVE); OPIATE SCREEN, URINE NEGATIVE (NEGATIVE); OXYCODONE SCREEN, URINE NEGATIVE (NEGATIVE); PROPOXYPHENE SCREEN, URINE NEGATIVE (NEGATIVE); TRICYCLIC ANTIDEPRESSANT,URINE NEGATIVE (NEGATIVE)
[2018-09-23 10:54] LABS: ACETAMINOPHEN < 10 ug/mL (10-30); ALBUMIN 3.9 g/dL (3.2-5.5); ALBUMIN/GLOBULIN RATIO 1.1 (1.0-2.2); ALKALINE PHOSPHATASE 61 IU/L (42-121); ALT ALANINE AMINOTRANSFERASE 14 IU/L (10-60); AST ASPARTATE AMINOTRANSFERASE 22 IU/L (10-42); BILIRUBIN,TOTAL 0.5 mg/dL (0.2-1.0); BUN - BLOOD UREA NITROGEN 14 mg/dL (6-20); CALCIUM 9.1 mg/dL (8.5-10.3); CARBON DIOXIDE - CO2 24 mmol/L (21-32); CHLORIDE 105 mmol/L (101-111); CREATININE 0.8 mg/dL (0.4-1.0); GFR - MDRD 75 (>89); GLUCOSE 81 mg/dL (70-100); LIPASE 19 U/L (22-51); SALICYLATE < 6.0 mg/dL; SODIUM 138 mmol/L (135-145); TOTAL PROTEIN 7.6 g/dL (6.7-8.2)
--- NOTE | 2018-09-23 11:14 | ED Physician Documentation ---
History of Present Illness - Stated complaint Stated Complaint: OD - Chief complaint Chief Complaint: MHE - Additonal information Additional information: hx from pt 53 f seen yesterday for OD - stated took tylenol PM to sleep seen by SHARMIN felt safe to dc contracted for safety went home and intentionally Corinne on 8 more tylenol PM plus to extra strength tylenol at 10 PM states took them to harm self this time denies other ingestion EtoH and drugs Review of Systems Constitutional: denies: Fever Throat: denies: Sore throat Cardiac: denies: Chest pain / pressure Respiratory: denies: Dyspnea GI: denies: Abdominal Pain, Nausea, Vomiting Musculoskeletal: denies: Neck pain Neurologic: denies: Generalized weakness Psychiatric: reports: Depressed, Suicidal Immunocompromised: denies: Immunocompromised, Chemotherapy PD PAST MEDICAL HISTORY - Past Medical History Cardiovascular: Angina, Other Respiratory: COPD, Pneumonia Neuro: Seizure disorder Endocrine/Autoimmune: Type 2 diabetes GI: GERD, Hiatal hernia 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 OPERATOR: None : None HEENT: None Psych: Depression, Bipolar disorder, Schizophrenia, Post traumatic stress disorder Musculoskeletal: None Derm: None - Past Surgical History Past Surgical History: Yes General: Bowel surgery Ortho: Other /BARKER OPERATOR: 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 HEENT: Cataracts - Present Medications Home Medications: Ambulatory Orders Medication Instructions Recorded Confirmed Divalproex ER [Depakote ER] 500 mg PO BID 12/25/16 09/22/18 Albuterol Sulf [Ventolin Hfa 1 - 2 puffs INH Q4HR PRN #1 inhaler 05/16/18 09/22/18 Inhaler] Mirtazapine [Remeron] 15 mg ORAL QPM 08/14/18 09/22/[address] [Depakote Dr] 250 mg BID 09/06/18 09/22/18 OLANZapine [Olanzapine] 10 mg ORAL BID 09/06/18 09/22/18 clonazePAM [Clonazepam] 1 mg ORAL BID 09/06/18 09/22/18 metFORMIN [Glucophage] 500 mg ORAL BID 09/06/18 09/22/18 - Allergies Allergies/Adverse Reactions: Allergies Allergy/AdvReac Type Severity Reaction Status Date / Time azithromycin Allergy Severe Hives Verified 09/23/18 10:32 haloperidol Allergy Severe Anaphylaxis Verified 09/23/18 10:32 Penicillins Allergy Severe Anaphylaxis Verified 09/23/18 10:32 amoxicillin [Amoxicillin] Allergy Intermediate Rash Verified 09/23/18 10:32 grapefruit Allergy Intermediate Rash Verified 09/23/18 10:32 iodine Allergy Intermediate Rash Verified 09/23/18 10:32 Sulfa (Sulfonamide Allergy Intermediate Rash Verified 09/23/18 10:32 Antibiotics) haloperidol lactate * AdvReac Rash Verified 09/23/18 10:32 [From Haldol] - Social History Does the pt smoke?: Yes Smoking Status: Current every day smoker Does the pt drink ETOH?: No Does the pt have substance abuse?: No - Immunizations Immunizations are current?: No Immunizations: TDAP >10years/unknown - POLST Patient has POLST: No PD ED PE NORMAL - Vitals Vital signs reviewed: Yes - General General: Alert and oriented X 3 - HEENT HEENT: Atraumatic - Neck Neck: Supple, no meningeal sign - Cardiac Cardiac: RRR - Respiratory Respiratory: No respiratory distress - Abdomen Abdomen: Soft - Derm Derm: Normal color - Neuro Neuro: Alert and oriented X 3 - Psych Psych: Other (states suicidal attempt) Results - Vitals Vitals: Vital Signs - 24 hr 09/23/18 09/23/18 09/23/18 10:24 11:30 12:00 Temperature 36 C L Heart Rate 89 80 80 Respiratory 18 16 18 Rate Blood Pressure 119/73 123/74 131/86 H O2 Saturation 97 99 99 09/23/18 16:09 Temperature 37.3 C Heart Rate 78 Respiratory 17 Rate Blood Pressure 123/82 H O2 Saturation 95 Oxygen O2 Source [With Activity] Room air O2 Source [Without Activity] Room air O2 Source Room air - EKG (time done) 1025 Rate: Rate (enter#) (90) Rhythm: NSR [place]: Normal, LAD Intervals: Normal [place] Ischemia: Non specific changes - Labs Labs: Laboratory Tests 09/23/18 09/23/18 09/23/18 10:30 10:30 10:30 WBC 13.0 H RBC 4.72 Hgb 13.6 Hct 40.9 MCV 86.6 MCH 28.8 MCHC 33.3 RDW 17.6 H Plt Count 315 MPV 8.9 Neut # (Auto) 5.8 Lymph # (Auto) 5.2 H [place] # (Auto) 1.7 H Eos # (Auto) 0.2 Baso # (Auto) 0.1 Absolute Nucleated RBC 0.00 Nucleated RBC % 0.0 Sodium 138 Potassium 4.2 Chloride 105 Carbon Dioxide 24 Anion Gap 9.0 BUN 14 Creatinine 0.8 Estimated GFR (MDRD) 75 L Glucose 81 Calcium 9.1 Total Bilirubin 0.5 AST 22 ALT 14 Alkaline Phosphatase 61 Total Protein 7.6 Albumin 3.9 Globulin 3.7 Albumin/Globulin Ratio 1.1 Lipase 19 L TSH 3.96 Urine Color Urine Clarity Urine pH Ur Specific [place] Urine Protein Urine Glucose (UA) Urine Ketones Urine Occult Blood Urine Nitrite Urine Bilirubin Urine Urobilinogen Ur Leukocyte Esterase Ur Microscopic Review Urine Culture Comments Last Dose Date Last Dose Time Salicylates < 6.0 Urine Opiates Screen Ur Oxycodone Screen Urine Methadone Screen Ur Propoxyphene Screen Acetaminophen < 10 L Ur Barbiturates Screen Valproic Acid Ur Tricyclics Screen Ur Phencyclidine Scrn Ur Amphetamine Screen U Methamphetamines Scrn U Benzodiazepines Scrn Urine Cocaine Screen U Cannabinoids Screen Ethyl Alcohol < 5.0 09/23/18 09/23/18 10:30 10:30 WBC RBC Hgb Hct MCV MCH MCHC RDW Plt Count MPV Neut # (Auto) Lymph # (Auto) [place] # (Auto) Eos # (Auto) Baso # (Auto) Absolute Nucleated RBC Nucleated RBC % Sodium Potassium Chloride Carbon Dioxide Anion Gap BUN Creatinine Estimated GFR (MDRD) Glucose Calcium Total Bilirubin AST ALT Alkaline Phosphatase Total Protein Albumin Globulin Albumin/Globulin Ratio Lipase TSH Urine Color YELLOW Urine Clarity CLEAR Urine pH 6.0 Ur Specific [place] <=1.005 Urine Protein NEGATIVE Urine Glucose (UA) NEGATIVE Urine Ketones NEGATIVE Urine Occult Blood NEGATIVE Urine Nitrite NEGATIVE Urine Bilirubin NEGATIVE Urine Urobilinogen 0.2 (NORMAL) Ur Leukocyte Esterase NEGATIVE Ur Microscopic Review NOT INDICATED Urine Culture Comments NOT INDICATED Last Dose Date UNKNOWN Last Dose Time UNKNOWN Salicylates Urine Opiates Screen NEGATIVE Ur Oxycodone Screen NEGATIVE Urine Methadone Screen NEGATIVE Ur Propoxyphene Screen NEGATIVE Acetaminophen Ur Barbiturates Screen NEGATIVE Valproic Acid 41.9 Ur Tricyclics Screen NEGATIVE Ur Phencyclidine Scrn NEGATIVE Ur Amphetamine Screen NEGATIVE U Methamphetamines Scrn NEGATIVE U Benzodiazepines Scrn NEGATIVE Urine Cocaine Screen NEGATIVE U Cannabinoids Screen NEGATIVE Ethyl Alcohol PD MEDICAL DECISION MAKING - ED course ED course: at 10am 12 hr s/p OD her apap level is non detectable so per nomogran non toxic medically clear seen by SHARMIN peters at [facility] Departure - Departure Disposition: 65 Psych Hosp/Unit DC/Xfer Clinical Impression: Drug overdose, intentional Qualifiers: Encounter type: initial encounter Qualified Code(s): T50.902A - Poisoning by unspecified drugs, medicaments and biological substances, intentional self-harm, initial encounter Condition: Good
[2018-09-23] MEDS ORDERED: NICOTINE 14 MG PATCH TOP STA (14:01)
[2018-09-23] MEDS ORDERED: LORazepam 0.5 MG TABLET PO STA (15:51)
[2018-09-23 16:10] VITALS: BP 123/82
[2018-09-23 17:10] LABS: VALPROIC ACID (DEPAKOTE) 41.9 ug/mL
[2018-09-23] MEDS ORDERED: clonazePAM 0.5 MG TABLET PO STA (18:14)
[2018-09-23] MEDS ORDERED: ALBUTEROL NEB 2.5 MG/3 ML INH STA (18:28)
== END 2018-09-23 20:20 ==
LOC: ED 10:15
DX: T39.1X2A Poisoning by 4-Aminophenol derivatives, intentional self-harm, initial encounter (principal); E11.9 Type 2 diabetes mellitus without complications; Z79.84 Long term (current) use of oral hypoglycemic drugs; R94.31 Abnormal electrocardiogram [ECG] [EKG]
CPT/HCPCS: 36415; 80053; 80164; 81003; 83690; 84443; 85025; 93005; 99283; 99284; A9270; 80306; 80307; 80320; 80329; 81001; 87086

== ENCOUNTER 2018-09-29 10:09 | Emergency (ER) | payer MEDICARE, MEDICAID ==
--- NOTE | 2018-09-29 11:21 | ED Physician Documentation ---
PD HPI MHE - Stated complaint Stated Complaint: NEEDS MEDS PER SW - Chief complaint Chief Complaint: General - History obtained from History obtained from: Patient - History of Present Illness Primary symptom: Depression, Anxiety, Out of meds (she was hospitalized at [facility], had had some recent overdoses and depression. Released today but does not have her meds until this coming week. Is going to a respite place today, but needs few days of meds per SW.). No: Suicidal ideation Timing - onset: Today Contributing factors: Out of meds (does not have access to some (just released and is going to [facility] and not to her apartment) and is out of others (apparently had taken extras in recent overdoses or such) but essentially does not have any of her meds right now.) Recently seen: Admitted ([facility] work) Review of Systems Constitutional: denies: Fever Nose: denies: Rhinorrhea / runny nose, Congestion Throat: denies: Sore throat Respiratory: denies: Cough GI: denies: Vomiting, Diarrhea Neurologic: denies: Focal weakness, Numbness Psychiatric: denies: Suicidal, Homicidal, Anxiety (not right now but is concern about not having her usual meds.) PD PAST MEDICAL HISTORY - Past Medical History Cardiovascular: Angina, Other Respiratory: COPD, Pneumonia Neuro: Seizure disorder Endocrine/Autoimmune: Type 2 diabetes GI: GERD, Hiatal hernia 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 : None HEENT: None Psych: Depression, Bipolar disorder, Schizophrenia, Post traumatic stress di sorder Musculoskeletal: None Derm: None - Past Surgical History Past Surgical History: Yes General: Bowel surgery Ortho: Other /FRAME CARVER SPINDLE: 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 HEENT: Cataracts - Present Medications Home Medications: Ambulatory Orders Medication Instructions Recorded Confirmed Albuterol Sulf [Ventolin Hfa 1 - 2 puffs INH Q4HR PRN #1 inhaler 05/16/18 09/29/18 Inhaler] Divalproex Dr [Depakote Dr] 250 mg BID 09/06/18 09/29/18 metFORMIN [Glucophage] 500 mg ORAL BID 09/06/18 09/29/18 Divalproex ER [Depakote ER] 750 mg PO BID #30 tablet 09/29/18 Mirtazapine [Remeron] 15 mg ORAL QPM #5 tablet 09/29/18 OLANZapine [Olanzapine] 10 mg ORAL BID #10 tablet 09/29/18 Prazosin HCl 1 mg PO QPM #5 capsule 09/29/18 clonazePAM [Clonazepam] 1 mg ORAL BID #10 tablet 09/29/18 - Allergies Allergies/Adverse Reactions: Allergies Allergy/AdvReac Type Severity Reaction Status Date / Time azithromycin Allergy Severe Hives Verified 09/23/18 10:32 haloperidol Allergy Severe Anaphylaxis Verified 09/23/18 10:32 Penicillins Allergy Severe Anaphylaxis Verified 09/23/18 10:32 amoxicillin [Amoxicillin] Allergy Intermediate Rash Verified 09/23/18 10:32 grapefruit Allergy Intermediate Rash Verified 09/23/18 10:32 iodine Allergy Intermediate Rash Verified 09/23/18 10:32 Sulfa (Sulfonamide Allergy Intermediate Rash Verified 09/23/18 10:32 Antibiotics) haloperidol lactate * AdvReac Rash Verified 09/23/18 10:32 [From Haldol] - Social History Does the pt smoke?: Yes Smoking Status: Current every day smoker Does the pt drink ETOH?: No Does the pt have substance abuse?: No - Immunizations Immunizations are current?: No Immunizations: TDAP >10years/unknown - POLST Patient has POLST: No PD ED PE NORMAL - Vitals Vital signs reviewed: Yes - General General: Alert and oriented X 3, No acute distress, Well developed/nourished - Derm Derm: Normal color, Warm and dry - Psych Psych: Normal mood, Normal affect Results - Vitals Vitals: Vital Signs - 24 hr 09/29/18 09/29/18 10:11 12:07 Temperature 36 C L 36.7 C Heart Rate 83 76 Respiratory 18 18 Rate Blood Pressure 100/82 H 125/79 O2 Saturation 95 98 Oxygen O2 Source [With Activity] Room air O2 Source [Without Activity] Room air O2 Source Room air PD MEDICAL DECISION MAKING - ED course Complexity details: considered differential (I can write for several days of meds for her to get until she can see PCP and get full Rx. I skipped nonessential meds such as statin, etc and gave Rx of her meds she would really need for 5 days. Social Work getting her [facility] voucher to [facility]. ), d/w patient, d/w senior application security consultant (Social Work) Departure - Departure Disposition: Home, Self Care Clinical Impression: Medication refill, Schizoaffective disorder, Anxiety, Seizure disorder Condition: Stable Record reviewed to determine appropriate education?: Yes Follow-Up: Patricia Hunter DNP [Primary Care Provider] - Prescriptions: clonazePAM [Clonazepam] 1 mg ORAL BID #10 tablet Divalproex ER [Depakote ER] 750 mg PO BID #30 tablet Mirtazapine [Remeron] 15 mg ORAL QPM #5 tablet OLANZapine [Olanzapine] 10 mg ORAL BID #10 tablet Prazosin HCl 1 mg PO QPM #5 capsule Comments: Continue usual medications. I wrote prescriptions for the ones you would certainly need over the next few days until you can get all your medications refilled. Discharge Date/Time: 09/29/18 12:25
[2018-09-29 12:07] VITALS: BP 125/79
== END 2018-09-29 12:25 | disposition home or self-care (01) ==
LOC: ED 10:09
DX: Z76.0 Encounter for issue of repeat prescription (principal); F41.9 Anxiety disorder, unspecified; F25.9 Schizoaffective disorder, unspecified; G40.909 Epilepsy, unspecified, not intractable, without status epilepticus; E11.9 Type 2 diabetes mellitus without complications; F17.200 Nicotine dependence, unspecified, uncomplicated; Z79.84 Long term (current) use of oral hypoglycemic drugs
CPT/HCPCS: 99283

== ENCOUNTER 2018-10-02 15:29 | Outpatient (CLI) | payer MEDICARE, MEDICAID | END 2018-10-02 15:30 | disposition home or self-care (01) | LOC: EMS 15:29 | PROVIDERS: ATTEND Surgery | DX: R45.851 Suicidal ideations (principal) | CPT/HCPCS: A0425; A0429 ==

== ENCOUNTER 2018-10-02 15:57 | Emergency (ER) | payer MEDICARE, MEDICAID ==
[2018-10-02 16:08] VITALS: BP 133/72
--- NOTE | 2018-10-02 16:23 | ED Physician Documentation ---
PD HPI MHE - Stated complaint Stated Complaint: SI - Chief complaint Chief Complaint: MHE - History obtained from History obtained from: Patient - History of Present Illness Primary symptom: Suicidal ideation (Nurse's notes say she is suicidal with thoughts of harming herself with a knife. When I approach her she says she simply wants to go live in a home where she can have more help. I asked her if she is suicidal and she says now and she promises not to hurt herself. I counseled her on the appropriate way to get into a fpc permanently.) Review of Systems Musculoskeletal: reports: Reviewed and negative Neurologic: reports: Reviewed and negative Psychiatric: reports: Anxiety. 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 : None HEENT: None Psych: Depression, Bipolar disorder, Schizophrenia, Post traumatic stress disorder Musculoskeletal: None Derm: None - Past Surgical History Past Surgical History: Yes General: Bowel surgery Ortho: Other /ELECTRONIC GLUING MACHINE OPERATOR: 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 HEENT: Cataracts - Present Medications Home Medications: Ambulatory Orders Medication Instructions Recorded Confirmed Albuterol Sulf [Ventolin Hfa 1 - 2 puffs INH Q4HR PRN #1 inhaler 05/16/18 09/29/18 Inhaler] Divalproex Dr [Depakote Dr] 250 mg BID 09/06/18 09/29/18 metFORMIN [Glucophage] 500 mg ORAL BID 09/06/18 09/29/18 Divalproex ER [Depakote ER] 750 mg PO BID #30 tablet 09/29/18 Mirtazapine [Remeron] 15 mg ORAL QPM #5 tablet 09/29/18 OLANZapine [Olanzapine] 10 mg ORAL BID #10 tablet 09/29/18 Prazosin HCl 1 mg PO QPM #5 capsule 09/29/18 clonazePAM [Clonazepam] 1 mg ORAL BID #10 tablet 09/29/18 - Allergies Allergies/Adverse Reactions: Allergies Allergy/AdvReac Type Severity Reaction Status Date / Time azithromycin Allergy Severe Hives Verified 10/02/18 16:08 haloperidol Allergy Severe Anaphylaxis Verified 10/02/18 16:08 Penicillins Allergy Severe Anaphylaxis Verified 10/02/18 16:08 amoxicillin [Amoxicillin] Allergy Intermediate Rash Verified 10/02/18 16:08 grapefruit Allergy Intermediate Rash Verified 10/02/18 16:08 iodine Allergy Intermediate Rash Verified 10/02/18 16:08 Sulfa (Sulfonamide Allergy Intermediate Rash Verified 10/02/18 16:08 Antibiotics) haloperidol lactate * AdvReac Rash Verified 10/02/18 16:08 [From Haldol] - Social History Does the pt smoke?: Yes Smoking Status: Current every day smoker Does the pt drink ETOH?: No Does the pt have substance abuse?: No - Immunizations Immunizations are current?: No Immunizations: TDAP >10years/unknown - POLST Patient has POLST: No PD ED PE NORMAL - Vitals Vital signs reviewed: Yes - General General: Alert and oriented X 3, No acute distress - Neuro Neuro: Alert and oriented X 3, Normal speech Eye Opening: Spontaneous Motor: Obeys Commands Verbal: Oriented GCS Score: 15 - Psych Psych: Normal mood, Normal affect Results - Vitals Vitals: Vital Signs - 24 hr 10/02/18 16:03 Temperature 36.9 C Heart Rate 92 Respiratory 16 Rate Blood Pressure 133/72 H O2 Saturation 95 Oxygen O2 Source [With Activity] Room air O2 Source [Without Activity] Room air O2 Source Room air PD MEDICAL DECISION MAKING - ED course ED course: 53-year-old woman with depression and schizoaffective disorder. She is at high risk for suicide given her past history, but tells me that she is not suicidal today and she simply wants to go live in a fpc I discussed with her that the best way to get help with this would be to go through her machine adjuster leader case trim, and I offered hospitalization for psychiatric reasons but she declined this. Departure - Departure Disposition: 01 Home, Self Care Clinical Impression: Depression Qualifiers: Depression Type: major depressive disorder Major depression recurrence: recurrent Active/Remission status: in partial remission Qualified Code(s): F33.41 - Major depressive disorder, recurrent, in partial remission Schizoaffective disorder Qualifiers: Schizoaffective disorder type: unspecified Qualified Code(s): F25.9 - Schizoaffective disorder, unspecified Condition: Stable Record reviewed to determine appropriate education?: Yes Instructions: ED Depression Comments: As discussed, you need to talk to machine adjuster leader case trim if you want to live in a fpc. We really cannot help you with that from the emergency department. Return anytime if you are actually suicidal or have other worsening of your medical or psychiatric conditions.
== END 2018-10-02 16:35 | disposition home or self-care (01) ==
LOC: EDUNIT# → ED 15:57
DX: F33.41 Major depressive disorder, recurrent, in partial remission (principal); F25.9 Schizoaffective disorder, unspecified; E11.9 Type 2 diabetes mellitus without complications; F43.10 Post-traumatic stress disorder, unspecified; F41.9 Anxiety disorder, unspecified; F17.200 Nicotine dependence, unspecified, uncomplicated
CPT/HCPCS: 80053; 80164; 80307; 80320; 80329; 83690; 84443; 85025; 99282

== ENCOUNTER 2018-10-02 16:58 | Emergency (ER) | payer MEDICARE, MEDICAID ==
--- NOTE | 2018-10-02 17:05 | ED Physician Documentation ---
<Robert Patterson M - Last Filed: 10/04/18 13:39> PD HPI MHE - Stated complaint Stated Complaint: SI - Chief complaint Chief Complaint: MHE - History obtained from History obtained from: Patient, Police - History of Present Illness Primary symptom: Suicidal ideation (She just been seen here because she wanted to go to fci. 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 : None HEENT: None Psych: Depression, Bipolar disorder, Schizophrenia, Post traumatic stress disorder Musculoskeletal: None Derm: None - Past Surgical History Past Surgical History: Yes General: Bowel surgery Ortho: Other /SHEET PILE HAMMER OPERATOR: 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 HEENT: Cataracts - Present Medications Home Medications: Ambulatory Orders Medication Instructions Recorded Confirmed RX: Albuterol Sulf [Ventolin Hfa 1 - 2 puffs INH Q4HR PRN #1 inhaler 05/16/18 09/29/18 Inhaler] RX: Divalproex Dr [Depakote Dr] 250 mg BID 09/06/18 09/29/18 RX: metFORMIN [Glucophage] 500 mg ORAL BID 09/06/18 09/29/18 Mirtazapine [Remeron] 15 mg ORAL QPM #5 tablet 09/29/18 OLANZapine [Olanzapine] 10 mg ORAL BID #10 tablet 09/29/18 RX: Divalproex ER [Depakote ER] 750 mg PO BID #30 tablet 09/29/18 RX: Prazosin HCl 1 mg PO QPM #5 capsule 09/29/18 clonazePAM [Clonazepam] 1 mg ORAL BID #10 tablet 09/29/18 - Allergies Allergies/Adverse Reactions: Allergies Allergy/AdvReac Type Severity Reaction Status Date / Time azithromycin Allergy Severe Hives Verified 10/02/18 16:08 haloperidol Allergy Severe Anaphylaxis Verified 10/02/18 16:08 Penicillins Allergy Severe Anaphylaxis Verified 10/02/18 16:08 amoxicillin [Amoxicillin] Allergy Intermediate Rash Verified 10/02/18 16:08 grapefruit Allergy Intermediate Rash Verified 10/02/18 16:08 iodine Allergy Intermediate Rash Verified 10/02/18 16:08 Sulfa (Sulfonamide Allergy Intermediate Rash Verified 10/02/18 16:08 Antibiotics) haloperidol lactate * AdvReac Rash Verified 10/02/18 16:08 [From Haldol] - Social History Does the pt smoke?: Yes Smoking Status: Current every day smoker Does the pt drink ETOH?: No Does the pt have substance abuse?: No - Family History Family history: reports: Non contributory - Immunizations Immunizations are current?: No Immunizations: TDAP >10years/unknown - POLST Patient has POLST: No PD ED PE NORMAL - Vitals Vital signs reviewed: Yes - General General: Alert and oriented X 3, Other (She is crying and asking for something to calm her down) - HEENT HEENT: PERRL, EOMI - Neck Neck: Supple, no meningeal sign, No bony TTP - Cardiac Cardiac: RRR, No murmur - Respiratory Respiratory: No respiratory distress, Clear bilaterally - Abdomen Abdomen: Non tender, Non distended - Back Back: No CVA TTP, No spinal TTP - Derm Derm: Normal color, Warm and dry - Extremities Extremities: No edema, No calf tenderness / cord - Neuro Neuro: Alert and oriented X 3, Normal speech Results - Vitals Vitals: Vital Signs - 24 hr 10/03/18 10/03/18 10/04/18 18:43 22:54 00:57 Temperature 36.4 C L Heart Rate 77 63 64 Respiratory 16 17 Rate Blood Pressure 122/61 O2 Saturation 94 96 97 10/04/18 10/04/18 10/04/18 01:20 03:05 05:20 Temperature 36.2 C L Heart Rate 68 65 Respiratory 19 17 Rate Blood Pressure O2 Saturation 95 96 10/04/18 06:50 Temperature 36.3 C L Heart Rate 69 Respiratory 18 Rate Blood Pressure 129/71 O2 Saturation 97 Oxygen O2 Source [With Activity] Room air O2 Source [Without Activity] Room air O2 Source Room air - Labs Labs: Laboratory Tests 10/02/18 10/02/18 10/02/18 16:00 17:20 17:20 WBC 11.1 H RBC 4.65 Hgb 12.9 Hct 40.6 MCV 87.4 MCH 27.8 MCHC 31.8 L RDW 17.0 H Plt Count 372 MPV 8.8 Neut # (Auto) 3.7 Lymph # (Auto) 5.9 H [place] # (Auto) 1.1 H Eos # (Auto) 0.3 Baso # (Auto) 0.1 Absolute Nucleated RBC 0.01 Nucleated RBC % 0.1 Sodium 140 Potassium 4.0 Chloride 107 Carbon Dioxide 24 Anion Gap 9.0 BUN 13 Creatinine 0.9 Estimated GFR (MDRD) 65 L Glucose 87 POC Whole Bld Glucose Calcium 8.7 Total Bilirubin 0.2 AST 19 ALT 15 Alkaline Phosphatase 60 Total Protein 7.0 Albumin 3.7 Globulin 3.3 Albumin/Globulin Ratio 1.1 Lipase 21 L TSH Urine Color YELLOW Urine Clarity CLEAR Urine pH 5.5 Ur Specific [place] 1.025 Urine Protein NEGATIVE Urine Glucose (UA) NEGATIVE Urine Ketones TRACE Urine Occult Blood NEGATIVE Urine Nitrite NEGATIVE Urine Bilirubin NEGATIVE Urine Urobilinogen 0.2 (NORMAL) Ur Leukocyte Esterase NEGATIVE Ur Microscopic Review NOT INDICATED Urine Culture Comments NOT INDICATED Last Dose Date Last Dose Time Salicylates < 6.0 Urine Opiates Screen NEGATIVE Ur Oxycodone Screen NEGATIVE Urine Methadone Screen NEGATIVE Ur Propoxyphene Screen NEGATIVE Acetaminophen < 10 L Ur Barbiturates Screen NEGATIVE Valproic Acid Ur Tricyclics Screen NEGATIVE Ur Phencyclidine Scrn NEGATIVE Ur Amphetamine Screen NEGATIVE U Methamphetamines Scrn NEGATIVE U Benzodiazepines Scrn POSITIVE H Urine Cocaine Screen NEGATIVE U Cannabinoids Screen NEGATIVE Ethyl Alcohol < 5.0 10/02/18 10/02/18 10/03/18 17:20 17:20 17:42 WBC 11.5 H RBC 4.82 Hgb 13.4 Hct 44.2 MCV 91.7 MCH 27.8 MCHC 30.4 L RDW 17.4 H Plt Count 373 MPV 9.0 Neut # (Auto) 3.9 Lymph # (Auto) 5.9 H [place] # (Auto) 1.2 H Eos # (Auto) 0.4 Baso # (Auto) 0.1 Absolute Nucleated RBC 0.01 Nucleated RBC % 0.1 Sodium Potassium Chloride Carbon Dioxide Anion Gap BUN Creatinine Estimated GFR (MDRD) Glucose POC Whole Bld Glucose Calcium Total Bilirubin AST ALT Alkaline Phosphatase Total Protein Albumin Globulin Albumin/Globulin Ratio Lipase TSH 4.17 Urine Color Urine Clarity Urine pH Ur Specific [place] Urine Protein Urine Glucose (UA) Urine Ketones Urine Occult Blood Urine Nitrite Urine Bilirubin Urine Urobilinogen Ur Leukocyte Esterase Ur Microscopic Review Urine Culture Comments Last Dose Date UNKNOWN Last Dose Time UNKNOWN Salicylates Urine Opiates Screen Ur Oxycodone Screen Urine Methadone Screen Ur Propoxyphene Screen Acetaminophen Ur Barbiturates Screen Valproic Acid 77.9 Ur Tricyclics Screen Ur Phencyclidine Scrn Ur Amphetamine Screen U Methamphetamines Scrn U Benzodiazepines Scrn Urine Cocaine Screen U Cannabinoids Screen Ethyl Alcohol 10/04/18 10/04/18 06:52 11:48 WBC RBC Hgb Hct MCV MCH MCHC RDW Plt Count MPV Neut # (Auto) Lymph # (Auto) [place] # (Auto) Eos # (Auto) Baso # (Auto) Absolute Nucleated RBC Nucleated RBC % Sodium Potassium Chloride Carbon Dioxide Anion Gap BUN Creatinine Estimated GFR (MDRD) Glucose POC Whole Bld Glucose 89 94 Calcium Total Bilirubin AST ALT Alkaline Phosphatase Total Protein Albumin Globulin Albumin/Globulin Ratio Lipase TSH Urine Color Urine Clarity Urine pH Ur Specific [place] Urine Protein Urine Glucose (UA) Urine Ketones Urine Occult Blood Urine Nitrite Urine Bilirubin Urine Urobilinogen Ur Leukocyte Esterase Ur Microscopic Review Urine Culture Comments Last Dose Date Last Dose Time Salicylates Urine Opiates Screen Ur Oxycodone Screen Urine Methadone Screen Ur Propoxyphene Screen Acetaminophen Ur Barbiturates Screen Valproic Acid Ur Tricyclics Screen Ur Phencyclidine Scrn Ur Amphetamine Screen U Methamphetamines Scrn U Benzodiazepines Scrn Urine Cocaine Screen U Cannabinoids Screen Ethyl Alcohol PD MEDICAL DECISION MAKING - ED course ED course: Seen and evaluated by SW who felt DCR should see her, DCR felt it was voluntary but increasing agitation during the day on 10/03, SW felt not good nay and DCR again dispatched and found psych placement. Departure - Departure Disposition: 65 Psych Hosp/Unit DC/Xfer Clinical Impression: Suicidal ideation, Schizoaffective disorder Discharge Date/Time: 10/04/18 12:21 <David Powell - Last Filed: 10/04/18 17:27> Results - Vitals Vitals: Vital Signs - 24 hr 10/03/18 10/03/18 10/04/18 18:43 22:54 00:57 Temperature 36.4 C L Heart Rate 77 63 64 Respiratory 16 17 Rate Blood Pressure 122/61 O2 Saturation 94 96 97 10/04/18 10/04/18 10/04/18 01:20 03:05 05:20 Temperature 36.2 C L Heart Rate 68 65 Respiratory 19 17 Rate Blood Pressure O2 Saturation 95 96 10/04/18 06:50 Temperature 36.3 C L Heart Rate 69 Respiratory 18 Rate Blood Pressure 129/71 O2 Saturation 97 Oxygen O2 Source [With Activity] Room air O2 Source [Without Activity] Room air O2 Source Room air - Labs Labs: Laboratory Tests 10/02/18 10/02/18 10/02/18 16:00 17:20 17:20 WBC 11.1 H RBC 4.65 Hgb 12.9 Hct 40.6 MCV 87.4 MCH 27.8 MCHC 31.8 L RDW 17.0 H Plt Count 372 MPV 8.8 Neut # (Auto) 3.7 Lymph # (Auto) 5.9 H [place] # (Auto) 1.1 H Eos # (Auto) 0.3 Baso # (Auto) 0.1 Absolute Nucleated RBC 0.01 Nucleated RBC % 0.1 Sodium 140 Potassium 4.0 Chloride 107 Carbon Dioxide 24 Anion Gap 9.0 BUN 13 Creatinine 0.9 Estimated GFR (MDRD) 65 L Glucose 87 POC Whole Bld Glucose Calcium 8.7 Total Bilirubin 0.2 AST 19 ALT 15 Alkaline Phosphatase 60 Total Protein 7.0 Albumin 3.7 Globulin 3.3 Albumin/Globulin Ratio 1.1 Lipase 21 L TSH Urine Color YELLOW Urine Clarity CLEAR Urine pH 5.5 Ur Specific [place] 1.025 Urine Protein NEGATIVE Urine Glucose (UA) NEGATIVE Urine Ketones TRACE Urine Occult Blood NEGATIVE Urine Nitrite NEGATIVE Urine Bilirubin NEGATIVE Urine Urobilinogen 0.2 (NORMAL) Ur Leukocyte Esterase NEGATIVE Ur Microscopic Review NOT INDICATED Urine Culture Comments NOT INDICATED Last Dose Date Last Dose Time Salicylates < 6.0 Urine Opiates Screen NEGATIVE Ur Oxycodone Screen NEGATIVE Urine Methadone Screen NEGATIVE Ur Propoxyphene Screen NEGATIVE Acetaminophen < 10 L Ur Barbiturates Screen NEGATIVE Valproic Acid Ur Tricyclics Screen NEGATIVE Ur Phencyclidine Scrn NEGATIVE Ur Amphetamine Screen NEGATIVE U Methamphetamines Scrn NEGATIVE U Benzodiazepines Scrn POSITIVE H Urine Cocaine Screen NEGATIVE U Cannabinoids Screen NEGATIVE Ethyl Alcohol < 5.0 10/02/18 10/02/18 10/03/18 17:20 17:20 17:42 WBC 11.5 H RBC 4.82 Hgb 13.4 Hct 44.2 MCV 91.7 MCH 27.8 MCHC 30.4 L RDW 17.4 H Plt Count 373 MPV 9.0 Neut # (Auto) 3.9 Lymph # (Auto) 5.9 H [place] # (Auto) 1.2 H Eos # (Auto) 0.4 Baso # (Auto) 0.1 Absolute Nucleated RBC 0.01 Nucleated RBC % 0.1 Sodium Potassium Chloride Carbon Dioxide Anion Gap BUN Creatinine Estimated GFR (MDRD) Glucose POC Whole Bld Glucose Calcium Total Bilirubin AST ALT Alkaline Phosphatase Total Protein Albumin Globulin Albumin/Globulin Ratio Lipase TSH 4.17 Urine Color Urine Clarity Urine pH Ur Specific [place] Urine Protein Urine Glucose (UA) Urine Ketones Urine Occult Blood Urine Nitrite Urine Bilirubin Urine Urobilinogen Ur Leukocyte Esterase Ur Microscopic Review Urine Culture Comments Last Dose Date UNKNOWN Last Dose Time UNKNOWN Salicylates Urine Opiates Screen Ur Oxycodone Screen Urine Methadone Screen Ur Propoxyphene Screen Acetaminophen Ur Barbiturates Screen Valproic Acid 77.9 Ur Tricyclics Screen Ur Phencyclidine Scrn Ur Amphetamine Screen U Methamphetamines Scrn U Benzodiazepines Scrn Urine Cocaine Screen U Cannabinoids Screen Ethyl Alcohol 10/04/18 10/04/18 06:52 11:48 WBC RBC Hgb Hct MCV MCH MCHC RDW Plt Count MPV Neut # (Auto) Lymph # (Auto) [place] # (Auto) Eos # (Auto) Baso # (Auto) Absolute Nucleated RBC Nucleated RBC % Sodium Potassium Chloride Carbon Dioxide Anion Gap BUN Creatinine Estimated GFR (MDRD) Glucose POC Whole Bld Glucose 89 94 Calcium Total Bilirubin AST ALT Alkaline Phosphatase Total Protein Albumin Globulin Albumin/Globulin Ratio Lipase TSH Urine Color Urine Clarity Urine pH Ur Specific [place] Urine Protein Urine Glucose (UA) Urine Ketones Urine Occult Blood Urine Nitrite Urine Bilirubin Urine Urobilinogen Ur Leukocyte Esterase Ur Microscopic Review Urine Culture Comments Last Dose Date Last Dose Time Salicylates Urine Opiates Screen Ur Oxycodone Screen Urine Methadone Screen Ur Propoxyphene Screen Acetaminophen Ur Barbiturates Screen Valproic Acid Ur Tricyclics Screen Ur Phencyclidine Scrn Ur Amphetamine Screen U Methamphetamines Scrn U Benzodiazepines Scrn Urine Cocaine Screen U Cannabinoids Screen Ethyl Alcohol PD MEDICAL DECISION MAKING - ED course ED course: Seen and evaluated by SW who felt DCR should see her, DCR felt it was voluntary but increasing agitation during the day on 10/03, SW felt not good nay and DCR again dispatched and found psych placement.
[2018-10-02] MEDS ORDERED: OLANZapine ODT 5 MG TABLET TL STA (17:06)
[2018-10-02] MEDS ORDERED: LORazepam 0.5 MG TABLET PO STA (17:06)
[2018-10-02 17:24] LABS: MUDS CUTOFF CONCENTRATIONS CUTOFF CONC BELOW:
[2018-10-02 17:26] LABS: BASOPHILS # (AUTO) 0.1 10^3/uL (0.0-0.1); BASOPHILS % (AUTO) 1.1 %; EOSINOPHILS # (AUTO) 0.3 10^3/uL (0.0-0.7); EOSINOPHILS % (AUTO) 2.8 %; HGB - HEMOGLOBIN 12.9 g/dL (12.0-16.0); LYMPHOCYTES # (AUTO) 5.9 10^3/uL (1.5-3.5); LYMPHOCYTES % (AUTO) 52.8 %; MEAN CORPUSCULAR HEMOGLOBIN 27.8 pg (27.0-31.0); MEAN CORPUSCULAR HGB CONC 31.8 g/dL (32.0-36.0); MEAN CORPUSCULAR VOLUME 87.4 fL (81.0-99.0); MEAN PLATELET VOLUME 8.8 fL (7.9-10.8); MONOCYTES # (AUTO) 1.1 10^3/uL (0.0-1.0); MONOCYTES % (AUTO) 10.3 %; NEUTROPHILS # (AUTO) 3.7 10^3/uL (1.5-6.6); PLT - PLATELET COUNT 372 10^3/uL (130-450); RED BLOOD COUNT 4.65 10^6/uL (4.20-5.40); WHITE BLOOD COUNT 11.1 x10^3/uL (4.8-10.8)
[2018-10-02 17:30] LABS: BILIRUBIN,URINE NEGATIVE (NEGATIVE); GLUCOSE, URINE (UA) NEGATIVE (NEGATIVE); KETONES,URINE (UA) TRACE mg/dL (NEGATIVE); LEUKOCYTE ESTERASE, URINE NEGATIVE (NEGATIVE); NITRITE,URINE NEGATIVE (NEGATIVE); OCCULT BLOOD,URINE NEGATIVE (NEGATIVE); PH,URINE 5.5 PH (5.0-7.5); PROTEIN,URINE NEGATIVE (NEGATIVE); UROBILINOGEN,URINE 0.2 (NORMAL) E.U./dL (NORMAL)
[2018-10-02 17:32] LABS: CLARITY,URINE CLEAR (CLEAR)
[2018-10-02 17:35] LABS: AMPHETAMINE SCREEN,URINE NEGATIVE (NEGATIVE); BENZODIAZEPINES SCREEN, URINE POSITIVE (NEGATIVE); COCAINE SCREEN URINE NEGATIVE (NEGATIVE); METHADONE SCREEN, URINE NEGATIVE (NEGATIVE); METHAMPHETAMINES SCREEN, URINE NEGATIVE (NEGATIVE); OPIATE SCREEN, URINE NEGATIVE (NEGATIVE); OXYCODONE SCREEN, URINE NEGATIVE (NEGATIVE); PROPOXYPHENE SCREEN, URINE NEGATIVE (NEGATIVE); TRICYCLIC ANTIDEPRESSANT,URINE NEGATIVE (NEGATIVE)
[2018-10-02 17:43] LABS: ACETAMINOPHEN < 10 ug/mL (10-30); ALBUMIN 3.7 g/dL (3.2-5.5); ALBUMIN/GLOBULIN RATIO 1.1 (1.0-2.2); ALKALINE PHOSPHATASE 60 IU/L (42-121); ALT ALANINE AMINOTRANSFERASE 15 IU/L (10-60); AST ASPARTATE AMINOTRANSFERASE 19 IU/L (10-42); BILIRUBIN,TOTAL 0.2 mg/dL (0.2-1.0); BUN - BLOOD UREA NITROGEN 13 mg/dL (6-20); CALCIUM 8.7 mg/dL (8.5-10.3); CARBON DIOXIDE - CO2 24 mmol/L (21-32); CHLORIDE 107 mmol/L (101-111); CREATININE 0.9 mg/dL (0.4-1.0); GFR - MDRD 65 (>89); GLUCOSE 87 mg/dL (70-100); LIPASE 21 U/L (22-51); SALICYLATE < 6.0 mg/dL; SODIUM 140 mmol/L (135-145)
[2018-10-02 17:46] LABS: VALPROIC ACID (DEPAKOTE) 77.9 ug/mL
[2018-10-02] MEDS ORDERED: LORazepam 2 MG/ML VIAL IM STA (18:03)
[2018-10-02] MEDS ORDERED: OLANZapine 10 MG VIAL IM STA (18:05)
[2018-10-02] MEDS ORDERED: KETAMINE 500 MG/10 ML VIAL IM STA (18:06)
[2018-10-02] MEDS ORDERED: LIDOCAINE PATCH 5% TOP STA (22:05)
--- NOTE | 2018-10-03 01:58 | ED Physician Documentation ---
ED Addendum - Addendum Addendum: 10/03/18 01:58 Patient was evaluated by the [facility] Liane Kemp, who states that the patient is now voluntary. The patient wishes to go to [facility]. She would like to stay in the emergency department overnight and speak with social work in the morning.
[2018-10-03] MEDS ORDERED: ACETAMINOPHEN 325 MG TABLET PO STA (08:55)
[2018-10-03] MEDS ORDERED: OLANZapine ODT 5 MG TABLET TL ONE (08:56)
[2018-10-03] MEDS ORDERED: clonazePAM 0.5 MG TABLET PO STA (08:56)
[2018-10-03] MEDS ORDERED: DIVALPROEX ER 250 MG TABLET PO STA (08:57)
[2018-10-03] MEDS ORDERED: metFORMIN 500 MG TABLET PO STA (08:58)
[2018-10-03] MEDS ORDERED: OLANZapine 10 MG VIAL IM STA ×2 (09:24→20:22)
--- NOTE | 2018-10-03 11:18 | ED Physician Documentation ---
ED Addendum - Addendum Addendum: 10/03/18 11:15 She was to have a geriatric social worker consult again this morning as she was feeling behaviorally labile and was not sure about security at home. Social work felt the patient might be able to be managed with contacting a equipment planner or such. However the patient is very labile here with having walked out across the street in the middle of the road with her gown on and needed being brought back. She states she is not sure about her self control at this point. I think she needs to be in a more protected place, be at respite or psychiatric facility. Social work was looking into that but also felt that she needed a DCR evaluation again today with the change to behavior.
[2018-10-03] MEDS ORDERED: LORazepam 0.5 MG TABLET PO STA ×2 (16:15→20:22)
[2018-10-03] MEDS ORDERED: diphenhydrAMINE 25 MG CAPSULE PO STA (17:19)
[2018-10-03] MEDS ORDERED: OLANZapine ODT 5 MG TABLET TL STA (17:28)
[2018-10-03 17:45] LABS: BASOPHILS # (AUTO) 0.1 10^3/uL (0.0-0.1); BASOPHILS % (AUTO) 1.1 %; EOSINOPHILS # (AUTO) 0.4 10^3/uL (0.0-0.7); EOSINOPHILS % (AUTO) 3.1 %; HGB - HEMOGLOBIN 13.4 g/dL (12.0-16.0); LYMPHOCYTES # (AUTO) 5.9 10^3/uL (1.5-3.5); LYMPHOCYTES % (AUTO) 50.8 %; MEAN CORPUSCULAR HEMOGLOBIN 27.8 pg (27.0-31.0); MEAN CORPUSCULAR HGB CONC 30.4 g/dL (32.0-36.0); MEAN CORPUSCULAR VOLUME 91.7 fL (81.0-99.0); MONOCYTES # (AUTO) 1.2 10^3/uL (0.0-1.0); MONOCYTES % (AUTO) 10.8 %; NEUTROPHILS # (AUTO) 3.9 10^3/uL (1.5-6.6); NEUTROPHILS % (AUTO) 34.2 %; PLT - PLATELET COUNT 373 10^3/uL (130-450); RED BLOOD COUNT 4.82 10^6/uL (4.20-5.40); RED CELL DISTRIBUTION WIDTH 17.4 % (12.0-15.0)
[2018-10-03 18:06] LABS: WHITE BLOOD COUNT 11.5 x10^3/uL (4.8-10.8)
[2018-10-04 07:02] VITALS: BP 129/71
[2018-10-04] MEDS ORDERED: metFORMIN 500 MG TABLET PO STA (08:41)
[2018-10-04] MEDS ORDERED: OLANZapine ODT 5 MG TABLET TL ONE (08:42)
[2018-10-04] MEDS ORDERED: clonazePAM 0.5 MG TABLET PO STA (08:42)
[2018-10-04] MEDS ORDERED: DIVALPROEX ER 250 MG TABLET PO STA (08:43)
[2018-10-04] MEDS ORDERED: ACETAMINOPHEN 325 MG TABLET PO STA (08:44)
== END 2018-10-04 12:21 ==
LOC: ED 16:58
DX: R45.851 Suicidal ideations (principal); F25.9 Schizoaffective disorder, unspecified; E11.9 Type 2 diabetes mellitus without complications; F43.10 Post-traumatic stress disorder, unspecified; F33.41 Major depressive disorder, recurrent, in partial remission; F41.9 Anxiety disorder, unspecified; F17.200 Nicotine dependence, unspecified, uncomplicated; J44.9 Chronic obstructive pulmonary disease, unspecified; Z79.51 Long term (current) use of inhaled steroids
CPT/HCPCS: 36415; 80053; 80164; 81003; 83690; 84443; 85025; 93005; 96372; 99282; 99285; A9270; J2060; 80306; 80307; 80320; 80329; 81001; 87086

== ENCOUNTER 2018-10-04 12:18 | Outpatient (CLI) | payer MEDICARE, MEDICAID | END 2018-10-04 12:19 | disposition home or self-care (01) | LOC: EMS 12:18 | PROVIDERS: ATTEND Surgery | DX: R45.851 Suicidal ideations (principal); F32.9 Major depressive disorder, single episode, unspecified; E11.9 Type 2 diabetes mellitus without complications; J43.9 Emphysema, unspecified; I20.9 Angina pectoris, unspecified; I10 Essential (primary) hypertension; Z86.73 Personal history of transient ischemic attack (TIA), and cerebral infarction without residual deficits; G40.909 Epilepsy, unspecified, not intractable, without status epilepticus | CPT/HCPCS: A0170; A0425; A0428 ==

== ENCOUNTER 2018-10-15 18:06 | Emergency (ER) | payer MEDICARE, MEDICAID ==
[2018-10-15] MEDS ORDERED: KETOROLAC 15 MG/ML VIAL IVP STA (19:14)
[2018-10-15] MEDS ORDERED: SODIUM CHLORIDE 0.9% 1,000 ML IV ONE (19:14)
[2018-10-15] MEDS ORDERED: ONDANSETRON 4 MG/2 ML VIAL IVP STA (19:15)
[2018-10-15 19:39] LABS: BASOPHILS # (AUTO) 0.1 10^3/uL (0.0-0.1); BASOPHILS % (AUTO) 1.5 %; EOSINOPHILS # (AUTO) 0.2 10^3/uL (0.0-0.7); EOSINOPHILS % (AUTO) 2.6 %; HGB - HEMOGLOBIN 12.2 g/dL (12.0-16.0); LYMPHOCYTES # (AUTO) 3.5 10^3/uL (1.5-3.5); LYMPHOCYTES % (AUTO) 44.9 %; MEAN CORPUSCULAR VOLUME 87.6 fL (81.0-99.0); MONOCYTES # (AUTO) 1.3 10^3/uL (0.0-1.0); MONOCYTES % (AUTO) 17.1 %; NEUTROPHILS # (AUTO) 2.6 10^3/uL (1.5-6.6); NEUTROPHILS % (AUTO) 33.9 %; PLT - PLATELET COUNT 307 10^3/uL (130-450); RED BLOOD COUNT 4.35 10^6/uL (4.20-5.40); RED CELL DISTRIBUTION WIDTH 16.8 % (12.0-15.0); WHITE BLOOD COUNT 7.8 x10^3/uL (4.8-10.8)
[2018-10-15 19:50] LABS: ALBUMIN 3.4 g/dL (3.2-5.5); ALBUMIN/GLOBULIN RATIO 1.1 (1.0-2.2); BILIRUBIN,TOTAL 0.4 mg/dL (0.2-1.0); CALCIUM 8.6 mg/dL (8.5-10.3); CREATININE 0.6 mg/dL (0.4-1.0); TOTAL PROTEIN 6.5 g/dL (6.7-8.2)
--- NOTE | 2018-10-15 19:50 | XRAY Report ---
Reason: cough Procedure Date: 10/15/2018 Accession Number: [id number] / [id number] Procedure: XR - Chest 2 View X-Ray CPT Code: 07078 FULL RESULT: EXAM: CHEST RADIOGRAPHY EXAM DATE: 10/15/2018 07:17 PM. CLINICAL HISTORY: Cough. COMPARISON: None. TECHNIQUE: 2 views. FINDINGS: Lungs/Pleura: Subtle increased interstitial markings with peribronchial cuffing. No focal opacities evident. No pleural effusion. No pneumothorax. Normal volumes. Mediastinum: Heart and mediastinal contours are unremarkable. Other: None. IMPRESSION: 1. No focal consolidation. 2. Subtle increased interstitial markings and peribronchial cuffing are nonspecific but can be seen in the setting of reactive airways disease, bronchitis and viral infection. [facility]
--- NOTE | 2018-10-15 19:52 | XRAY Report ---
Reason: low back pain s/p fall Procedure Date: 10/15/2018 Accession Number: [id number] / [id number] Procedure: XR - Lumbar Spine 2 View CPT Code: FULL RESULT: EXAM: LUMBOSACRAL SPINE RADIOGRAPHY EXAM DATE: 10/15/2018 07:17 PM. CLINICAL HISTORY: Low back pain s/p fall. COMPARISONS: None. TECHNIQUE: 2 views. FINDINGS: Alignment: Normal. No spondylolisthesis or scoliosis. Bones: Five [id number] lumbar vertebral bodies are present. No fractures or bone lesions. Disks: Normal. Disk heights are maintained. Facets: No degenerative changes. Sacroiliac Joints: Unremarkable. Soft Tissues: Normal. The visualized bowel gas pattern is normal. IMPRESSION: No fracture or listhesis identified. RADIA
[2018-10-15 19:58] LABS: PLATELET ESTIMATE, MANUAL NORMAL (130-450,000) (NORMAL); PLATELET MORPHOLOGY NORMAL APPEARANCE (NORMAL); RBC MORPHOLOGY (MULTIPLE) 1+ ANISOCYTOSIS (NORMAL)
[2018-10-15] MEDS ORDERED: HYDROcod/ACETAM 5/325 MG TABLET PO STA (20:19)
--- NOTE | 2018-10-15 20:21 | ED Physician Documentation ---
History of Present Illness - Stated complaint Stated Complaint: LOW BACK PX/ FALL - Chief complaint Chief Complaint: Back Pain - History obtained from History obtained from: Patient - History of Present Illness Timing: Today Pain level max: 8 Pain level now: 8 - Additonal information Additional information: 53-year-old female presents to the emergency department with multiple complaints. She states that she fell a few days ago and is having continued low back pain. Worse with movement. Tylenol and Motrin are not helping. She also states that she is having a cough congestion as well as vomiting and diarrhea. Unsure if she is having fevers or not. Does have body aches as well. States unable to keep anything down at this time. Nothing makes it better or worse Review of Systems Ten Systems: 10 systems reviewed and negative Constitutional: reports: Chills. 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 : None HEENT: None Psych: Depression, Bipolar disorder, Schizophrenia, Post traumatic stress disorder Musculoskeletal: None Derm: None - Past Surgical History Past Surgical History: Yes General: Bowel surgery Ortho: Other /SENIOR MATERIALS ANALYST: 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 HEENT: Cataracts - Present Medications Home Medications: Ambulatory Orders Medication Instructions Recorded Confirmed Albuterol Sulf [Ventolin Hfa 1 - 2 puffs INH Q4HR PRN #1 inhaler 05/16/18 09/29/18 Inhaler] Divalproex Dr [Depakote Dr] 250 mg BID 09/06/18 09/29/18 metFORMIN [Glucophage] 500 mg ORAL BID 09/06/18 09/29/18 Divalproex ER [Depakote ER] 750 mg PO BID #30 tablet 09/29/18 Mirtazapine [Remeron] 15 mg ORAL QPM #5 tablet 09/29/18 OLANZapine [Olanzapine] 10 mg ORAL BID #10 tablet 09/29/18 Prazosin HCl 1 mg PO QPM #5 capsule 09/29/18 clonazePAM [Clonazepam] 1 mg ORAL BID #10 tablet 09/29/18 Albuterol Sulf [Ventolin Hfa 1 - 2 puffs INH Q4HR PRN #1 inhaler 10/15/18 Inhaler] Hydrocodone/Acetaminophen 1 - 2 each PO Q6H PRN #7 tablet 10/15/18 [Hydrocodon-Acetaminophen 5-325] Ondansetron Odt [Zofran] 4 mg TL Q6H PRN #10 tablet 10/15/18 - Allergies Allergies/Adverse Reactions: Allergies Allergy/AdvReac Type Severity Reaction Status Date / Time azithromycin Allergy Severe Hives Verified 10/15/18 18:21 haloperidol Allergy Severe Anaphylaxis Verified 10/15/18 18:21 Penicillins Allergy Severe Anaphylaxis Verified 10/15/18 18:21 amoxicillin [Amoxicillin] Allergy Intermediate Rash Verified 10/15/18 18:21 grapefruit Allergy Intermediate Rash Verified 10/15/18 18:21 iodine Allergy Intermediate Rash Verified 10/15/18 18:21 Sulfa (Sulfonamide Allergy Intermediate Rash Verified 10/15/18 18:21 Antibiotics) haloperidol lactate * AdvReac Rash Verified 10/15/18 18:21 [From Haldol] - Social History Does the pt smoke?: Yes Smoking Status: Current every day smoker Does the pt drink ETOH?: No Does the pt have substance abuse?: No - Immunizations Immunizations are current?: No Immunizations: TDAP >10years/unknown - POLST Patient has POLST: No PD ED PE NORMAL - Vitals Vital signs reviewed: Yes - General General: Alert and oriented X 3, No acute distress, Well developed/nourished - HEENT HEENT: Atraumatic, PERRL, Ears normal, Moist mucous membranes, Pharynx benign - Neck Neck: Supple, no meningeal sign, No bony TTP - Cardiac Cardiac: RRR, Strong equal pulses - Respiratory Respiratory: No respiratory distress, Other (Mild wheezing bilaterally) - Abdomen Abdomen: Soft, Non tender, Non distended - Back Back: Other (Tender palpation upper lumbar spine. No step-off or deformity) - Derm Derm: Warm and dry, No rash - Extremities Extremities: No deformity, No tenderness to palpate - Neuro Neuro: Alert and oriented X 3, bin operator 2-12 intact, No motor deficit, No sensory deficit, Normal speech - Psych Psych: Normal mood, Normal affect Results - Vitals Vitals: Vital Signs - 24 hr 10/15/18 10/15/18 18:14 20:41 Temperature 36.9 C 36.0 C L Heart Rate 79 80 Respiratory 24 22 Rate Blood Pressure 136/84 H 152/92 H O2 Saturation 96 97 Oxygen O2 Source [With Activity] Room air O2 Source [Without Activity] Room air O2 Source Room air - Labs Labs: Laboratory Tests 10/15/18 10/15/18 10/15/18 19:25 19:25 19:43 WBC 7.8 RBC 4.35 Hgb 12.2 Hct 38.1 MCV 87.6 MCH 28.0 MCHC 32.0 RDW 16.8 H Plt Count 307 MPV 9.0 Neut # (Auto) 2.6 Lymph # (Auto) 3.5 [place] # (Auto) 1.3 H Eos # (Auto) 0.2 Baso # (Auto) 0.1 Absolute Nucleated RBC 0.02 Nucleated RBC % 0.2 Manual Slide Review Indicated WBC Morphology NORMAL APPEARANCE Platelet Estimate NORMAL (130-450,000) Platelet Morphology NORMAL APPEARANCE RBC Morph Micro Appear 1+ ANISOCYTOSIS Sodium 141 Potassium 3.7 Chloride 108 Carbon Dioxide 25 Anion Gap 8.0 BUN 6 Creatinine 0.6 Estimated GFR (MDRD) 104 Glucose 101 H Calcium 8.6 Total Bilirubin 0.4 AST 17 ALT 16 Alkaline Phosphatase 51 Total Protein 6.5 L Albumin 3.4 Globulin 3.1 Albumin/Globulin Ratio 1.1 Lipase 22 Influenza A (Rapid) Negative Influenza B (Rapid) Negative - Rads (name of study) cxr Radiology: Prelim report reviewed, EMP read contemporaneously, See rad report (No focal consolidation. Subtle increased interstitial markings and peribronchial cuffing are nonspecific but can be seen in the setting of reactive airways disease, bronchitis and viral infection. ) L spine xray Radiology: Prelim report reviewed, EMP read contemporaneously, See rad report (No fracture or listhesis identified. ) PD MEDICAL DECISION MAKING - ED course Complexity details: reviewed results, re-evaluated patient, considered differential, d/w patient ED course: 53-year-old female with what appears to be a low back strain as well as a viral syndrome. Feels better after IV fluids. Tolerating p.o. without difficulty after Zofran. No respiratory distress. States will use her inhaler at home. Ambulating without difficulty. No neurological deficits. Negative chest x-ray for pneumonia. Negative L-spine x-ray for fracture. Abdomen is soft, nontender nondistended on serial exam. Patient counseled regarding signs and symptoms for which I believe and urgent re-evaluation would be necessary. Patient with good understanding of and agreement to plan and is comfortable going home at this time This document was made in part using voice recognition software. While efforts are made to proofread this document, sound alike and grammatical errors may occur. Departure - Departure Disposition: Home, Self Care Clinical Impression: Viral syndrome Back pain Qualifiers: Back pain location: low back pain Chronicity: acute Back pain laterality: bilateral Sciatica presence: without sciatica Qualified Code(s): M54.5 - Low back pain Condition: Good Instructions: ED Low Back Pain Injury, ED Viral Syndrome, ED URI Viral Follow-Up: Patricia Hunter DNP [Primary Care Provider] - Within 1 week Prescriptions: Albuterol Sulf [Ventolin Hfa Inhaler] 1 - 2 puffs INH Q4HR PRN #1 inhaler PRN Reason: Shortness Of Air/Wheezing Hydrocodone/Acetaminophen [Hydrocodon-Acetaminophen 5-325] 1 - 2 each PO Q6H PRN #7 tablet PRN Reason: pain Ondansetron Odt [Zofran] 4 mg TL Q6H PRN #10 tablet PRN Reason: Nausea / Vomiting Comments: Return if you worsen. Use the medications as prescribed. Your xrays do not show any acute abnormalities tonight. Do not drink alcohol or drive while on narcotic pain medicine. Note that many narcotic pain relievers also contain tylenol/acetaminophen. Please ensure that your total dose of acetaminophen from all sources does not exceed 3 grams (3000mg) per day. You may constipated on this medication, take a stool softener such as "Colace" twice a day while you are on it. Also recommend a hgpx-wex-rfssopq laxative such as senna or MiraLAX any day that you do not have a bowel movement. If you received narcotic pain medication in the emergency department, do not drive or operate machinery for the next 24 hours. Discharge Date/Time: 10/15/18 20:53
[2018-10-15 20:42] VITALS: BP 152/92
== END 2018-10-15 20:53 | disposition home or self-care (01) ==
LOC: EDUNIT# → ED 18:06
DX: B34.9 Viral infection, unspecified (principal); M54.5 Low back pain; J44.9 Chronic obstructive pulmonary disease, unspecified; F17.200 Nicotine dependence, unspecified, uncomplicated; E11.9 Type 2 diabetes mellitus without complications; Z79.84 Long term (current) use of oral hypoglycemic drugs
CPT/HCPCS: 36415; 71046; 72100; 80053; 83690; 85025; 87275; 87276; 96361; 96374; 96375; 99283; 99284; A9270

== ENCOUNTER 2018-10-22 19:12 | Outpatient (CLI) | payer MEDICARE, MEDICAID | END 2018-10-22 19:13 | disposition critical access hospital (66) | LOC: EMS 19:12 | PROVIDERS: ATTEND Surgery | DX: R06.00 Dyspnea, unspecified (principal) | CPT/HCPCS: A0425; A0429 ==

== ENCOUNTER 2018-10-22 19:30 | Emergency (ER) | payer MEDICARE, MEDICAID ==
--- NOTE | 2018-10-22 20:05 | ED Physician Documentation ---
PD HPI URI - Stated complaint Stated Complaint: COUGH - Chief complaint Chief Complaint: Resp - History obtained from History obtained from: Patient - History of Present Illness Timing - onset: How many weeks ago (2) Timing details: Gradual onset, Waxing and waning Associated symptoms: Nasal congestion, Productive cough, Dyspnea. No: Fever, Chills, Sweats, Sore throat Improves by: Nothing Worsened by: Activity, Other (PO intake) Recently seen: Clinic, Emergency Dept - Additional information Additional information: multiple c/o, similar to most recent [facility] ED visit 10/15/18. c/o dyspnea, cough productive of green/yellow phlegm, sinus congestion, nausea, vomiting, loose stool. After d/c from this ED 10/15, she followed-up with PMD the next day and was prescribed albuterol MDI, baclofen for back spasms, and robitussin DM. She has b een using ODT Zofran at home and is on a tapering course of prednisone. Given duoneb en route with some relief Review of Systems Constitutional: reports: Myalgias. denies: Fever, Chills, Sweats Throat: denies: Sore throat Cardiac: denies: Chest pain / pressure, Palpitations Respiratory: reports: Dyspnea, Cough, Wheezing. denies: Hemoptysis GI: reports: Nausea, Vomiting, Diarrhea. denies: Abdominal Pain : reports: Frequency. 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 : None HEENT: None Psych: Depression, Bipolar disorder, Schizophrenia, Post traumatic stress disorder Musculoskeletal: None Derm: None - Past Surgical History Past Surgical History: Yes General: Bowel surgery Ortho: Other /INSTRUCTOR BRIDGE: 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 HEENT: Cataracts - Present Medications Home Medications: Ambulatory Orders Medication Instructions Recorded Confirmed Albuterol Sulf [Ventolin Hfa 1 - 2 puffs INH Q4HR PRN #1 inhaler 05/16/18 09/29/18 Inhaler] Divalproex Dr [Depakote Dr] 250 mg BID 09/06/18 09/29/18 metFORMIN [Glucophage] 500 mg ORAL BID 09/06/18 09/29/18 Divalproex ER [Depakote ER] 750 mg PO BID #30 tablet 09/29/18 Mirtazapine [Remeron] 15 mg ORAL QPM #5 tablet 09/29/18 OLANZapine [Olanzapine] 10 mg ORAL BID #10 tablet 09/29/18 Prazosin HCl 1 mg PO QPM #5 capsule 09/29/18 clonazePAM [Clonazepam] 1 mg ORAL BID #10 tablet 09/29/18 Albuterol Sulf [Ventolin Hfa 1 - 2 puffs INH Q4HR PRN #1 inhaler 10/15/18 Inhaler] Hydrocodone/Acetaminophen 1 - 2 each PO Q6H PRN #7 tablet 10/15/18 [Hydrocodon-Acetaminophen 5-325] Ondansetron Odt [Zofran] 4 mg TL Q6H PRN #10 tablet 10/15/18 Promethazine [Phenergan] 25 mg PO Q6H PRN #10 tab 10/22/18 - Allergies Allergies/Adverse Reactions: Allergies Allergy/AdvReac Type Severity Reaction Status Date / Time azithromycin Allergy Severe Hives Verified 10/22/18 19:35 haloperidol Allergy Severe Anaphylaxis Verified 10/22/18 19:35 Penicillins Allergy Severe Anaphylaxis Verified 10/22/18 19:35 amoxicillin [Amoxicillin] Allergy Intermediate Rash Verified 10/22/18 19:35 grapefruit Allergy Intermediate Rash Verified 10/22/18 19:35 iodine Allergy Intermediate Rash Verified 10/22/18 19:35 Sulfa (Sulfonamide Allergy Intermediate Rash Verified 10/22/18 19:35 Antibiotics) haloperidol lactate * AdvReac Rash Verified 10/22/18 19:35 [From Haldol] - Social History Does the pt smoke?: Yes Smoking Status: Current every day smoker Does the pt drink ETOH?: No Does the pt have substance abuse?: No - Immunizations Immunizations are current?: No Immunizations: TDAP >10years/unknown - POLST Patient has POLST: No PD ED PE NORMAL - Vitals Vital signs reviewed: Yes - General General: Alert and oriented X 3, No acute distress, Well developed/nourished - HEENT HEENT: PERRL, EOMI, Moist mucous membranes, Pharynx benign - Neck Neck: Supple, no meningeal sign - Cardiac Cardiac: No murmur - Respiratory Respiratory: No respiratory distress, Other (decreased breath sounds bilaterally. trace end-expiratory wheezing ) - Abdomen Abdomen: Soft, Non tender, Non distended - Derm Derm: Normal color, Warm and dry - Extremities Extremities: No edema - Neuro Neuro: Alert and oriented X 3 PD ED PE EXPANDED - Cardiac Cardiac: Tachy, Regular Rhythm Results - Vitals Vitals: Vital Signs - 24 hr 10/22/18 10/22/18 19:33 21:31 Temperature 36.5 C 36.7 C Heart Rate 121 H 108 H Respiratory 16 16 Rate Blood Pressure 133/86 H 129/64 O2 Saturation 93 95 Oxygen O2 Source [] Room air O2 Source [] Room air O2 Source Room air - Labs Labs: Laboratory Tests 10/22/18 10/22/18 19:59 19:59 WBC 14.3 H RBC 4.63 Hgb 12.8 Hct 40.4 MCV 87.2 MCH 27.7 MCHC 31.7 L RDW 16.6 H Plt Count 408 MPV 8.9 Neut # (Auto) 9.3 H Lymph # (Auto) 4.4 H [place] # (Auto) 0.4 Eos # (Auto) 0.0 Baso # (Auto) 0.1 Absolute Nucleated RBC 0.03 Nucleated RBC % 0.2 Sodium 140 Potassium 3.7 Chloride 107 Carbon Dioxide 20 L Anion Gap 13.0 BUN 10 Creatinine 0.8 Estimated GFR (MDRD) 75 L Glucose 250 H Calcium 8.9 Total Bilirubin 0.2 AST 33 ALT 15 Alkaline Phosphatase 59 Total Protein 7.3 Albumin 3.5 Globulin 3.8 Albumin/Globulin Ratio 0.9 L Lipase 22 - Rads (name of study) chest xray Radiology: Prelim report reviewed, See rad report PD MEDICAL DECISION MAKING - ED course Complexity details: reviewed old records, reviewed results, re-evaluated patient, considered differential, d/w patient Departure - Departure Disposition: 01 Home, Self Care Clinical Impression: Upper respiratory infection Condition: Good Instructions: ED Upper Resp Infec No Abx Tx Follow-Up: Patricia Hunter DNP [Primary Care Provider] - (3-5 days if symptoms do not resolve) Prescriptions: Promethazine [Phenergan] 25 mg PO Q6H PRN #10 tab PRN Reason: Nausea / Vomiting Discharge Date/Time: 10/22/18 21:33
[2018-10-22 20:07] LABS: BASOPHILS # (AUTO) 0.1 10^3/uL (0.0-0.1); BASOPHILS % (AUTO) 0.9 %; EOSINOPHILS % (AUTO) 0.3 %; HGB - HEMOGLOBIN 12.8 g/dL (12.0-16.0); LYMPHOCYTES # (AUTO) 4.4 10^3/uL (1.5-3.5); LYMPHOCYTES % (AUTO) 30.9 %; MEAN CORPUSCULAR HEMOGLOBIN 27.7 pg (27.0-31.0); MEAN CORPUSCULAR HGB CONC 31.7 g/dL (32.0-36.0); MEAN CORPUSCULAR VOLUME 87.2 fL (81.0-99.0); MEAN PLATELET VOLUME 8.9 fL (7.9-10.8); MONOCYTES # (AUTO) 0.4 10^3/uL (0.0-1.0); NEUTROPHILS # (AUTO) 9.3 10^3/uL (1.5-6.6); NEUTROPHILS % (AUTO) 64.9 %; PLT - PLATELET COUNT 408 10^3/uL (130-450); RED BLOOD COUNT 4.63 10^6/uL (4.20-5.40); RED CELL DISTRIBUTION WIDTH 16.6 % (12.0-15.0); WHITE BLOOD COUNT 14.3 x10^3/uL (4.8-10.8)
[2018-10-22] MEDS ORDERED: DEXAMETHASONE 10 MG/ML VIAL PO STA (20:18)
[2018-10-22] MEDS ORDERED: PROMETHAZINE 25 MG TABLET PO STA (20:19)
[2018-10-22 20:20] LABS: ALBUMIN 3.5 g/dL (3.2-5.5); ALBUMIN/GLOBULIN RATIO 0.9 (1.0-2.2); BILIRUBIN,TOTAL 0.2 mg/dL (0.2-1.0); CALCIUM 8.9 mg/dL (8.5-10.3); CREATININE 0.8 mg/dL (0.4-1.0); TOTAL PROTEIN 7.3 g/dL (6.7-8.2)
[2018-10-22] MEDS ORDERED: CHERRY SYRUP 10 ML UDC PO ONE (20:27)
--- NOTE | 2018-10-22 20:55 | XRAY Report ---
Reason: cough Procedure Date: 10/22/2018 Accession Number: [id number] / [id number] Procedure: XR - Chest 2 View X-Ray CPT Code: 73094 FULL RESULT: EXAM: CHEST RADIOGRAPHY EXAM DATE: 10/22/2018 08:02 PM. CLINICAL HISTORY: Cough. COMPARISON: CHEST 2 VIEW 10/15/2018 7:17 PM CHEST 2 VIEW 09/22/2018 7:31 AM. TECHNIQUE: 2 views. FINDINGS: Lungs/Pleura: Persistent interstitial opacities at the lung bases similar to the previous exam. No confluent lung consolidation. No pleural effusion or pneumothorax. Mediastinum: Heart and mediastinal contours are unremarkable. Other: None. IMPRESSION: Persistent bibasilar interstitial opacities suggesting viral bronchiolitis or reactive airway disease. No confluent lung consolidation. RADIA
[2018-10-22 21:32] VITALS: BP 129/64
== END 2018-10-22 21:33 | disposition home or self-care (01) ==
LOC: EDUNIT# → ED 19:30
DX: J06.9 Acute upper respiratory infection, unspecified (principal); E11.9 Type 2 diabetes mellitus without complications; F17.200 Nicotine dependence, unspecified, uncomplicated
CPT/HCPCS: 36415; 71046; 80053; 83690; 85025; 99283; A9270; Q0169

== ENCOUNTER 2018-10-23 15:10 | Outpatient (CLI) | payer MEDICARE, MEDICAID | END 2018-10-23 15:11 | disposition critical access hospital (66) | LOC: EMS 15:10 | PROVIDERS: ATTEND Surgery | DX: R73.9 Hyperglycemia, unspecified (principal) | CPT/HCPCS: A0425; A0429 ==

== ENCOUNTER 2018-10-23 15:29 | Emergency (ER) | payer MEDICARE, MEDICAID ==
[2018-10-23 16:02] LABS: BASOPHILS % (AUTO) 0.5 %; HGB - HEMOGLOBIN 12.6 g/dL (12.0-16.0); LYMPHOCYTES % (AUTO) 14.9 %; MEAN CORPUSCULAR HEMOGLOBIN 27.7 pg (27.0-31.0); MEAN CORPUSCULAR HGB CONC 32.3 g/dL (32.0-36.0); MEAN CORPUSCULAR VOLUME 85.9 fL (81.0-99.0); MEAN PLATELET VOLUME 8.7 fL (7.9-10.8); MONOCYTES % (AUTO) 7.9 %; NEUTROPHILS % (AUTO) 76.7 %; PLT - PLATELET COUNT 412 10^3/uL (130-450); RED BLOOD COUNT 4.54 10^6/uL (4.20-5.40); RED CELL DISTRIBUTION WIDTH 16.9 % (12.0-15.0); WHITE BLOOD COUNT 25.2 x10^3/uL (4.8-10.8)
[2018-10-23 16:09] LABS: ABNORMAL LYMPHS % (MANUAL) 0 %
[2018-10-23 16:12] LABS: ALBUMIN 3.6 g/dL (3.2-5.5); ALBUMIN/GLOBULIN RATIO 0.9 (1.0-2.2); BILIRUBIN,TOTAL 0.2 mg/dL (0.2-1.0); CALCIUM 9.3 mg/dL (8.5-10.3); CREATININE 0.7 mg/dL (0.4-1.0); TOTAL PROTEIN 7.5 g/dL (6.7-8.2)
[2018-10-23 16:56] LABS: BAND NEUTROPHILS % (MANUAL) 1 %; LYMPHOCYTES # (MANUAL) 5.5 10^3/uL (1.5-3.5); LYMPHOCYTES % (MANUAL) 17 %; MONOCYTES # (MANUAL) 1.5 10^3/uL (0.0-1.0); NEUTROPHILS # (MANUAL) 18.1 10^3/uL (1.5-6.6); NEUTROPHILS % (MANUAL) 71 %
[2018-10-23 16:57] LABS: DIFFERENTIAL COMMENT MANUAL DIFFERENTIAL; PLATELET ESTIMATE, MANUAL NORMAL (130-450,000) (NORMAL); PLATELET MORPHOLOGY NORMAL APPEARANCE (NORMAL); RBC MORPHOLOGY (MULTIPLE) NORMAL APPEARANCE (NORMAL)
[2018-10-23] MEDS ORDERED: PROMETHAZINE 25 MG/1 ML VIAL IM STA (17:22)
[2018-10-23] MEDS ORDERED: DOXYCYCLINE 100 MG TABLET PO STA (17:22)
[2018-10-23 17:25] VITALS: BP 135/66
[2018-10-23 17:25] LABS: BILIRUBIN,URINE NEGATIVE (NEGATIVE); GLUCOSE, URINE (UA) NEGATIVE (NEGATIVE); KETONES,URINE (UA) TRACE mg/dL (NEGATIVE); LEUKOCYTE ESTERASE, URINE NEGATIVE (NEGATIVE); NITRITE,URINE NEGATIVE (NEGATIVE); OCCULT BLOOD,URINE NEGATIVE (NEGATIVE); PROTEIN,URINE 30 mg/dL (NEGATIVE); UROBILINOGEN,URINE 0.2 (NORMAL) E.U./dL (NORMAL)
[2018-10-23 17:28] LABS: CLARITY,URINE CLEAR (CLEAR)
[2018-10-23 17:29] LABS: BACTERIA,URINE None Seen /HPF (None Seen); RBC,URINE 0-5 /HPF (0-5); SQUAMOUS EPITHELIAL CELL,UR RARE Squamous (<= Few)
--- NOTE | 2018-10-23 17:29 | ED Physician Documentation ---
PD HPI URI - Stated complaint Stated Complaint: HIGH BLOOD SUGAR - Chief complaint Chief Complaint: General - History obtained from History obtained from: Patient, EMS - History of Present Illness Timing - onset: Today Timing duration: Days (1) Timing details: Gradual onset Pain level max: 4 Pain level now: 3 Associated symptoms: Fever, Chills, Nasal congestion, Rhinorrhea, Dry cough. No: NVD Contributing factors: Sick contact, COPD / asthma Improves by: Rest Worsened by: Activity Similar symptoms before: Diagnosis (viral URI) Recently seen: Emergency Dept (last night for URI symptoms, given dexamethasone.) - Additional information Additional information: states blood sugar high today. 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 : None HEENT: None Psych: Depression, Bipolar disorder, Schizophrenia, Post traumatic stress disorder Musculoskeletal: None Derm: None - Past Surgical History Past Surgical History: Yes General: Bowel surgery Ortho: Other /DESILVERIZER: 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 HEENT: Cataracts - Present Medications Home Medications: Ambulatory Orders Medication Instructions Recorded Confirmed Albuterol Sulf [Ventolin Hfa 1 - 2 puffs INH Q4HR PRN #1 inhaler 05/16/18 09/29/18 Inhaler] Divalproex Dr [Depakote Dr] 250 mg BID 09/06/18 09/29/18 metFORMIN [Glucophage] 500 mg ORAL BID 09/06/18 09/29/18 Divalproex ER [Depakote ER] 750 mg PO BID #30 tablet 09/29/18 Mirtazapine [Remeron] 15 mg ORAL QPM #5 tablet 09/29/18 OLANZapine [Olanzapine] 10 mg ORAL BID #10 tablet 09/29/18 Prazosin HCl 1 mg PO QPM #5 capsule 09/29/18 clonazePAM [Clonazepam] 1 mg ORAL BID #10 tablet 09/29/18 Albuterol Sulf [Ventolin Hfa 1 - 2 puffs INH Q4HR PRN #1 inhaler 10/15/18 Inhaler] Hydrocodone/Acetaminophen 1 - 2 each PO Q6H PRN #7 tablet 10/15/18 [Hydrocodon-Acetaminophen 5-325] Ondansetron Odt [Zofran] 4 mg TL Q6H PRN #10 tablet 10/15/18 Promethazine [Phenergan] 25 mg PO Q6H PRN #10 tab 10/22/18 Doxycycline Hyclate 100 mg PO BID #20 capsule 10/23/18 - Allergies Allergies/Adverse Reactions: Allergies Allergy/AdvReac Type Severity Reaction Status Date / Time azithromycin Allergy Severe Hives Verified 10/23/18 15:44 haloperidol Allergy Severe Anaphylaxis Verified 10/23/18 15:44 Penicillins Allergy Severe Anaphylaxis Verified 10/23/18 15:44 amoxicillin [Amoxicillin] Allergy Intermediate Rash Verified 10/23/18 15:44 grapefruit Allergy Intermediate Rash Verified 10/23/18 15:44 iodine Allergy Intermediate Rash Verified 10/23/18 15:44 Sulfa (Sulfonamide Allergy Intermediate Rash Verified 10/23/18 15:44 Antibiotics) haloperidol lactate * AdvReac Rash Verified 10/23/18 15:44 [From Haldol] - Social History Does the pt smoke?: Yes Smoking Status: Current every day smoker Does the pt drink ETOH?: No Does the pt have substance abuse?: No - Immunizations Immunizations are current?: No Immunizations: TDAP >10years/unknown - POLST Patient has POLST: No PD ED PE NORMAL - Vitals Vital signs reviewed: Yes - General General: Alert and oriented X 3, No acute distress - HEENT HEENT: Moist mucous membranes - Neck Neck: Supple, no meningeal sign - Cardiac Cardiac: RRR, Strong equal pulses - Respiratory Respiratory: No respiratory distress, Clear bilaterally - Abdomen Abdomen: Soft, Non tender, Non distended - Derm Derm: Warm and dry - Neuro Neuro: Alert and oriented X 3 - Psych Psych: Normal mood, Normal affect Results - Vitals Vitals: Vital Signs - 24 hr 10/23/18 10/23/18 15:37 17:24 Temperature 36.9 C Heart Rate 110 H 94 Respiratory 20 18 Rate Blood Pressure 156/93 H 135/66 H O2 Saturation 95 95 Oxygen O2 Source [With Activity] Room air O2 Source [Without Activity] Room air O2 Source Room air - Labs Labs: Laboratory Tests 10/23/18 10/23/18 10/23/18 15:41 15:53 15:53 WBC 25.2 H RBC 4.54 Hgb 12.6 Hct 39.0 MCV 85.9 MCH 27.7 MCHC 32.3 RDW 16.9 H Plt Count 412 MPV 8.7 Neut # (Auto) Not Reportable Lymph # (Auto) Not Reportable [place] # (Auto) Not Reportable Eos # (Auto) Not Reportable Baso # (Auto) Not Reportable Absolute Nucleated RBC Not Reportable Total Counted 100 Band Neuts % (Manual) 1 Reactive Lymphs % (Man) 5 Abnorm Lymph % (Manual) 0 Nucleated RBC % Not Reportable Neutrophils # (Manual) 18.1 H Lymphocytes # (Manual) 5.5 H Monocytes # (Manual) 1.5 H Eosinophils # (Manual) 0.0 Basophils # (Manual) 0.0 Differential Comment MANUAL DIFFERENTIAL Manual Slide Review Indicated Platelet Estimate NORMAL (130-450,000) Platelet Morphology NORMAL APPEARANCE RBC Morph Micro Appear NORMAL APPEARANCE Sodium 141 Potassium 4.2 Chloride 106 Carbon Dioxide 21 Anion Gap 14.0 H BUN 18 Creatinine 0.7 Estimated GFR (MDRD) 87 L Glucose 205 H Calcium 9.3 Total Bilirubin 0.2 AST 25 ALT 16 Alkaline Phosphatase 57 Total Protein 7.5 Albumin 3.6 Globulin 3.9 Albumin/Globulin Ratio 0.9 L Lipase 19 L Urine Color YELLOW Urine Clarity CLEAR Urine pH 6.0 Ur Specific [place] >=1.030 H Urine Protein 30 H Urine Glucose (UA) NEGATIVE Urine Ketones TRACE Urine Occult Blood NEGATIVE Urine Nitrite NEGATIVE Urine Bilirubin NEGATIVE Urine Urobilinogen 0.2 (NORMAL) Ur Leukocyte Esterase NEGATIVE Urine RBC 0-5 Urine WBC 0-3 Ur Squamous Epith Cells RARE Squamous Urine Bacteria None Seen Ur Microscopic Review INDICATED Urine Culture Comments NOT INDICATED PD MEDICAL DECISION MAKING - ED course Complexity details: reviewed results, re-evaluated patient, considered differential, d/w patient ED course: 53-year-old female with a history of COPD presents to the emergency department with URI symptoms continuing. She has been sick for several weeks and is not getting better. We will add doxycycline to her home regimen at this time. She is tolerating p.o. without difficulty here. She is well-appearing, nontoxic. Had a chest x-ray last night. Patient counseled regarding signs and symptoms for which I believe and urgent re-evaluation would be necessary. Patient with good understanding of and agreement to plan and is comfortable going home at thi s time This document was made in part using voice recognition software. While efforts are made to proofread this document, sound alike and grammatical errors may occur. Departure - Departure Disposition: Home, Self Care Clinical Impression: Bronchitis COPD (chronic obstructive pulmonary disease) Qualifiers: COPD type: COPD with acute exacerbation Qualified Code(s): J44.1 - Chronic obstructive pulmonary disease with (acute) exacerbation Condition: Good Instructions: ED Upper Resp Infec Abx Tx Follow-Up: Patricia Hunter DNP [Primary Care Provider] - Within 1 week Prescriptions: Doxycycline Hyclate 100 mg PO BID #20 capsule Comments: Return if you worsen. Fill the phenergan prescription from yesterday. take all antibiotics until gone. Discharge Date/Time: 10/23/18 17:48
== END 2018-10-23 17:48 | disposition home or self-care (01) ==
LOC: EDUNIT# → ED 15:29
DX: J44.1 Chronic obstructive pulmonary disease with (acute) exacerbation (principal); F17.200 Nicotine dependence, unspecified, uncomplicated
CPT/HCPCS: 36415; 80053; 81001; 83690; 85025; 96372; 99283; A9270; 81003; 87086

== ENCOUNTER 2018-10-26 17:57 | Outpatient (CLI) | payer MEDICARE, MEDICAID | END 2018-10-26 17:58 | disposition short-term general hospital (02) | LOC: EMS 17:57 | PROVIDERS: ATTEND Surgery | DX: R51 Headache (principal); R11.2 Nausea with vomiting, unspecified; R19.7 Diarrhea, unspecified | CPT/HCPCS: A0425; A0429 ==

== ENCOUNTER 2018-10-26 18:17 | Emergency (ER) | payer MEDICARE, MEDICAID ==
[2018-10-26 19:05] LABS: BILIRUBIN,URINE NEGATIVE (NEGATIVE); GLUCOSE, URINE (UA) NEGATIVE (NEGATIVE); KETONES,URINE (UA) NEGATIVE (NEGATIVE); LEUKOCYTE ESTERASE, URINE NEGATIVE (NEGATIVE); NITRITE,URINE NEGATIVE (NEGATIVE); OCCULT BLOOD,URINE NEGATIVE (NEGATIVE); PH,URINE 6.5 PH (5.0-7.5); PROTEIN,URINE NEGATIVE (NEGATIVE); UROBILINOGEN,URINE 0.2 (NORMAL) E.U./dL (NORMAL)
[2018-10-26 19:09] LABS: CLARITY,URINE CLEAR (CLEAR)
--- NOTE | 2018-10-26 19:36 | ED Physician Documentation ---
PD HPI HEADACHE - Stated complaint Stated Complaint: MIGRAINE - Chief complaint Chief Complaint: General - History obtained from History obtained from: Patient, EMS - History of Present Illness Timing - onset: Today Timing - onset during: Light activity Timing - duration: Days (1) Timing - details: Gradual onset, Still present Worst headache ever?: No: Worst headache ever? (she says it feels like a migraine that she gets periodically. Has had some nausea. Also with several episodes of diarrhea today. No vomiting. No fever.) Location: Front, Global Quality: Throbbing, Aching Associated symptoms: Nausea. No: Fever, Stiff neck, Vomiting, Weakness, Numbness Worsened by: Light Contributing factors: Recent illness (having some diarrhea today. No URI symptoms.). No: Trauma Similar symptoms before: Diagnosis (migraines periodically) Review of Systems Constitutional: denies: Fever, Myalgias Eyes: reports: Photophobia. denies: Loss of vision Nose: denies: Rhinorrhea / runny nose, Congestion Throat: denies: Sore throat Respiratory: denies: Cough GI: reports: Nausea, Diarrhea. denies: Vomiting, Bloody / black stool Neurologic: reports: Generalized weakness. denies: Focal weakness, Numbness PD PAST MEDICAL HISTORY - Past Medical History Cardiovascular: Angina, Other Respiratory: COPD, Pneumonia Neuro: Seizure disorder Endocrine/Autoimmune: Type 2 diabetes GI: GERD, Hiatal hernia ENDOSCOPY RN: None : None HEENT: None Psych: Depression, Bipolar disorder, Schizophrenia, Post traumatic stress disorder Musculoskeletal: None Derm: None - Past Surgical History Past Surgical History: Yes General: Bowel surgery Ortho: Other /ENDOSCOPY RN: 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 HEENT: Cataracts - Present Medications Home Medications: Ambulatory Orders Medication Instructions Recorded Confirmed Albuterol Sulf [Ventolin Hfa 1 - 2 puffs INH Q4HR PRN #1 inhaler 05/16/18 09/29/18 Inhaler] Divalproex Dr [Depakote Dr] 250 mg BID 09/06/18 09/29/18 metFORMIN [Glucophage] 500 mg ORAL BID 09/06/18 09/29/18 Divalproex ER [Depakote ER] 750 mg PO BID #30 tablet 09/29/18 Mirtazapine [Remeron] 15 mg ORAL QPM #5 tablet 09/29/18 OLANZapine [Olanzapine] 10 mg ORAL BID #10 tablet 09/29/18 Prazosin HCl 1 mg PO QPM #5 capsule 09/29/18 clonazePAM [Clonazepam] 1 mg ORAL BID #10 tablet 09/29/18 Albuterol Sulf [Ventolin Hfa 1 - 2 puffs INH Q4HR PRN #1 inhaler 10/15/18 Inhaler] Hydrocodone/Acetaminophen 1 - 2 each PO Q6H PRN #7 tablet 10/15/18 [Hydrocodon-Acetaminophen 5-325] Ondansetron Odt [Zofran] 4 mg TL Q6H PRN #10 tablet 10/15/18 Promethazine [Phenergan] 25 mg PO Q6H PRN #10 tab 10/22/18 Doxycycline Hyclate 100 mg PO BID #20 capsule 10/23/18 - Allergies Allergies/Adverse Reactions: Allergies Allergy/AdvReac Type Severity Reaction Status Date / Time azithromycin Allergy Severe Hives Verified 10/26/18 18:33 haloperidol Allergy Severe Anaphylaxis Verified 10/26/18 18:33 Penicillins Allergy Severe Anaphylaxis Verified 10/26/18 18:33 amoxicillin [Amoxicillin] Allergy Intermediate Rash Verified 10/26/18 18:33 grapefruit Allergy Intermediate Rash Verified 10/26/18 18:33 iodine Allergy Intermediate Rash Verified 10/26/18 18:33 Sulfa (Sulfonamide Allergy Intermediate Rash Verified 10/26/18 18:33 Antibiotics) haloperidol lactate * AdvReac Rash Verified 10/26/18 18:33 [From Haldol] - Social History Does the pt smoke?: Yes Smoking Status: Current every day smoker Does the pt drink ETOH?: No Does the pt have substance abuse?: No - Immunizations Immunizations are current?: No Immunizations: TDAP >10years/unknown - POLST Patient has POLST: No PD ED PE NORMAL - Vitals Vital signs reviewed: Yes - General General: Alert and oriented X 3, No acute distress, Well developed/nourished - HEENT HEENT: PERRL (light sensitive) - Neck Neck: Supple, no meningeal sign, No adenopathy - Abdomen Abdomen: Normal bowel sounds, Soft, Non tender, Non distended - Derm Derm: Normal color, Warm and dry - Extremities Extremities: Normal ROM s pain - Neuro Neuro: Alert and oriented X 3, No motor deficit, No sensory deficit, Normal speech Eye Opening: Spontaneous Motor: Obeys Commands Verbal: Oriented GCS Score: 15 - Psych Psych: Normal mood Results - Vitals Vitals: Oxygen O2 Source [With Activity] Room air O2 Source [Without Activity] Room air O2 Source Room air - Labs Labs: Laboratory Tests 10/26/18 18:55 Urine Color YELLOW Urine Clarity CLEAR Urine pH 6.5 Ur Specific [place] 1.010 Urine Protein NEGATIVE Urine Glucose (UA) NEGATIVE Urine Ketones NEGATIVE Urine Occult Blood NEGATIVE Urine Nitrite NEGATIVE Urine Bilirubin NEGATIVE Urine Urobilinogen 0.2 (NORMAL) Ur Leukocyte Esterase NEGATIVE Ur Microscopic Review NOT INDICATED Urine Culture Comments NOT INDICATED PD MEDICAL DECISION MAKING - ED course Complexity details: re-evaluated patient (improved with meds mainly targeted at migraine. Had some headache still and given pain med to improve it more. ), considered differential, d/w patient Departure - Departure Disposition: Home, Self Care Clinical Impression: Acute headache Qualifiers: Headache type: unspecified Intractability: not intractable Qualified Code(s): R51 - Headache Condition: Stable Record reviewed to determine appropriate education?: Yes Instructions: ED Cephalgia Unspecified Follow-Up: Patricia Hunter DNP [Primary Care Provider] - Comments: Stay well-hydrated. Continue usual medications. Tylenol if needed for headaches. Return to ER if worse again. Discharge Date/Time: 10/26/18 21:25
[2018-10-26] MEDS ORDERED: SODIUM CHLORIDE 0.9% 1,000 ML IV ONE (20:05)
[2018-10-26] MEDS ORDERED: diphenhydrAMINE INJ 50 MG/ML VIAL IVP STA (20:06)
[2018-10-26] MEDS ORDERED: METOCLOPRAMIDE 10 MG/2 ML VIAL IVP STA (20:06)
[2018-10-26] MEDS ORDERED: KETOROLAC 15 MG/ML VIAL IVP STA (20:06)
[2018-10-26] MEDS ORDERED: ACETAMINOPHEN 1,000 MG/100 ML 100 ML IV STA (20:07)
[2018-10-26] MEDS ORDERED: HYDROmorphone 1 MG/ML CARPUJECT IVP STA (20:53)
[2018-10-26 21:15] VITALS: BP 126/68
[2018-10-26] MEDS ORDERED: DIPHENOX/ATROPINE 2.5/0.025 MG TABLET PO STA (21:25)
== END 2018-10-26 21:25 | disposition home or self-care (01) ==
LOC: EDUNIT# → ED 18:17
DX: R51 Headache (principal); R94.31 Abnormal electrocardiogram [ECG] [EKG]; E11.9 Type 2 diabetes mellitus without complications; Z79.84 Long term (current) use of oral hypoglycemic drugs; F17.200 Nicotine dependence, unspecified, uncomplicated
CPT/HCPCS: 81003; 93005; 96374; 96375; 99284; A9270; J0131; J1170; J1200; J2765; 81001; 87086

== ENCOUNTER 2018-10-28 15:58 | Outpatient (CLI) | payer MEDICARE, MEDICAID | END 2018-10-28 15:59 | disposition critical access hospital (66) | LOC: EMS 15:58 | PROVIDERS: ATTEND Surgery | DX: M25.562 Pain in left knee (principal); M25.561 Pain in right knee; W18.30XA Fall on same level, unspecified, initial encounter; Y92.009 Unspecified place in unspecified non-institutional (private) residence as the place of occurrence of the external cause | CPT/HCPCS: A0425; A0429 ==

== ENCOUNTER 2018-10-28 16:20 | Emergency (ER) | payer MEDICARE, MEDICAID ==
[2018-10-28] MEDS ORDERED: oxyCODONE 5 MG TABLET PO STA ×2 (16:35→18:05)
[2018-10-28] MEDS ORDERED: IPRATROPIUM/ALBUTEROL 3 ML NEB INH STA (16:37)
--- NOTE | 2018-10-28 16:37 | ED Physician Documentation ---
PD HPI LOWER EXT INJURY - Stated complaint Stated Complaint: DIZZY - History obtained from History obtained from: Patient, EMS - History of Present Illness PD HPI LOW EXT INJURY LOCATION: Other (She was at home with her caregiver and she started to feel lightheaded and dizzy and she fell she thinks onto her knees but she is not sure. She is sure she did not hit her head. She has bilateral knee pain, left greater than right and unable to walk due to same. She also complains of intermittent mild chest pain since yesterday with increased wheezing.) Review of Systems Ten Systems: 10 systems reviewed and negative Constitutional: denies: Fever, Chills Cardiac: reports: Chest pain / pressure. denies: Palpitations, Pedal edema, Calf pain Respiratory: reports: Dyspnea, Cough, Wheezing. 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: None : None HEENT: None Psych: Depression, Bipolar disorder, Schizophrenia, Post traumatic stress disorder Musculoskeletal: None Derm: None - Past Surgical History Past Surgical History: Yes General: Bowel surgery Ortho: Other /ROLL COVERER: 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 HEENT: Cataracts - Present Medications Home Medications: Ambulatory Orders Medication Instructions Recorded Confirmed RX: metFORMIN [Glucophage] 500 mg ORAL TID 09/06/18 10/28/18 Mirtazapine [Remeron] 15 mg ORAL QPM #5 tablet 09/29/18 10/28/18 OLANZapine [Olanzapine] 10 mg ORAL BID #10 tablet 09/29/18 10/28/18 RX: Divalproex ER [Depakote ER] 750 mg PO BID #30 tablet 09/29/18 10/28/18 RX: Prazosin HCl 1 mg PO QPM #5 capsule 09/29/18 10/28/18 clonazePAM [Clonazepam] 1 mg ORAL BID #10 tablet 09/29/18 10/28/18 Ondansetron Odt [Zofran] 4 mg TL Q6H PRN #10 tablet 10/15/18 10/28/18 RX: Albuterol Sulf [Ventolin Hfa 1 - 2 puffs INH Q4HR PRN #1 inhaler 10/15/18 10/28/18 Inhaler] Promethazine [Phenergan] 25 mg PO Q6H PRN #10 tab 10/22/18 10/28/18 RX: Baclofen 5 mg PO BID 10/28/18 10/28/18 - Allergies Allergies/Adverse Reactions: Allergies Allergy/AdvReac Type Severity Reaction Status Date / Time azithromycin Allergy Severe Hives Verified 10/26/18 18:33 haloperidol Allergy Severe Anaphylaxis Verified 10/26/18 18:33 Penicillins Allergy Severe Anaphylaxis Verified 10/26/18 18:33 amoxicillin [Amoxicillin] Allergy Intermediate Rash Verified 10/26/18 18:33 grapefruit Allergy Intermediate Rash Verified 10/26/18 18:33 iodine Allergy Intermediate Rash Verified 10/26/18 18:33 Sulfa (Sulfonamide Allergy Intermediate Rash Verified 10/26/18 18:33 Antibiotics) haloperidol lactate * AdvReac Rash Verified 10/26/18 18:33 [From Haldol] - Social History Does the pt smoke?: Yes Smoking Status: Current every day smoker Does the pt drink ETOH?: No Does the pt have substance abuse?: No - Immunizations Immunizations are current?: No Immunizations: TDAP >10years/unknown - POLST Patient has POLST: No PD ED PE NORMAL - Vitals Vital signs reviewed: Yes - General General: Alert and oriented X 3, No acute distress - HEENT HEENT: PERRL, EOMI - Neck Neck: Supple, no meningeal sign, No bony TTP - Cardiac Cardiac: RRR, No murmur - Respiratory Respiratory: No respiratory distress, Other (Loud expiratory wheezes) - Abdomen Abdomen: Non tender - Back Back: No CVA TTP, No spinal TTP - Extremities Extremities: Other (There is no deformity or ecchymosis to either knee, she has mild anterior tenderness. She will not range either on initial evaluation pain. Her hips and ankles are nontender.) - Neuro Neuro: Alert and oriented X 3, Normal speech Results - Vitals Vitals: Vital Signs - 24 hr 10/28/18 10/28/18 10/28/18 16:29 16:55 18:32 Heart Rate 97 80 82 Respiratory 16 18 17 Rate Blood Pressure 146/91 H 126/75 O2 Saturation 97 93 10/28/18 10/28/18 10/28/18 19:05 19:48 20:14 Heart Rate 87 88 83 Respiratory 16 16 16 Rate Blood Pressure O2 Saturation 94 94 10/28/18 20:36 Heart Rate 81 Respiratory 17 Rate Blood Pressure 125/76 O2 Saturation 95 Oxygen O2 Source [] Room air O2 Source [] Room air O2 Source Room air - EKG (time done) 1642 Rate: Rate (enter#) (82) Rhythm: NSR [place]: Normal Intervals: Normal MD QRS: Normal Ischemia: Normal ST segments Computer interpretation: Agree with computer - Labs Labs: Laboratory Tests 10/28/18 10/28/18 10/28/18 16:40 16:40 16:40 WBC 16.4 H RBC 4.26 Hgb 11.7 L Hct 36.7 L MCV 86.3 MCH 27.5 MCHC 31.9 L RDW 16.5 H Plt Count 351 MPV 8.8 Neut # (Auto) Not Reportable Lymph # (Auto) Not Reportable [place] # (Auto) Not Reportable Eos # (Auto) Not Reportable Baso # (Auto) Not Reportable Absolute Nucleated RBC Not Reportable Total Counted 100 Band Neuts % (Manual) 3 Abnorm Lymph % (Manual) 0 Nucleated RBC % Not Reportable Neutrophils # (Manual) 8.4 H Lymphocytes # (Manual) 5.9 H Monocytes # (Manual) 2.0 H Eosinophils # (Manual) 0.2 Basophils # (Manual) 0.0 Differential Comment MANUAL DIFFERENTIAL Manual Slide Review Indicated WBC Morphology 1+ SMUDGE CELLS Platelet Estimate NORMAL (130-450,000) Platelet Morphology NORMAL APPEARANCE RBC Morph Micro Appear 1+ ANISOCYTOSIS Sodium 140 Potassium 3.9 Chloride 106 Carbon Dioxide 26 Anion Gap 8.0 BUN 16 Creatinine 0.6 Estimated GFR (MDRD) 104 Glucose 107 H Calcium 8.1 L Total Bilirubin 0.2 AST 16 ALT 13 Alkaline Phosphatase 47 Troponin I < 0.04 Total Protein 6.0 L Albumin 3.2 Globulin 2.8 Albumin/Globulin Ratio 1.1 Lipase 18 L Last Dose Date Last Dose Time Valproic Acid 10/28/18 16:40 WBC RBC Hgb Hct MCV MCH MCHC RDW Plt Count MPV Neut # (Auto) Lymph # (Auto) [place] # (Auto) Eos # (Auto) Baso # (Auto) Absolute Nucleated RBC Total Counted Band Neuts % (Manual) Abnorm Lymph % (Manual) Nucleated RBC % Neutrophils # (Manual) Lymphocytes # (Manual) Monocytes # (Manual) Eosinophils # (Manual) Basophils # (Manual) Differential Comment Manual Slide Review WBC Morphology Platelet Estimate Platelet Morphology RBC Morph Micro Appear Sodium Potassium Chloride Carbon Dioxide Anion Gap BUN Creatinine Estimated GFR (MDRD) Glucose Calcium Total Bilirubin AST ALT Alkaline Phosphatase Troponin I Total Protein Albumin Globulin Albumin/Globulin Ratio Lipase Last Dose Date UNKNOWN Last Dose Time UNKNOWN Valproic Acid 49.9 - Rads (name of study) B knee XR Radiology: EMP read contemporaneously (NAD) CT Pelvis Radiology: EMP read contemporaneously (Inferior right sacroiliitis without fracture) PD MEDICAL DECISION MAKING - ED course ED course: 53-year-old woman with psychiatric illness presents after ground-level fall due to dizziness but not syncope onto her knees with knee pain but no acute findings on the x-rays. Her workup otherwise is negative. She was psychiatrically stable without complaints of suicidal or homicidal ideation. After x-rays she was complaining more of right hip pain. She did not have pain with internal or external rotation and the pain was more over the pelvic brim but she will be sent for more imaging. After neg CT was able to ambulate with walker. Given #4 vicodin to go, no rx, given hx of ODs. Note that leukocytosis is chronic. Departure - Departure Disposition: 01 Home, Self Care Clinical Impression: Wheezing, Near syncope, Sacroiliac joint dysfunction of right side Contusion of right knee Qualifiers: Encounter type: initial encounter Qualified Code(s): S80.01XA - Contusion of right knee, initial encounter Contusion of left knee Qualifiers: Encounter type: initial encounter Qualified Code(s): S80.02XA - Contusion of left knee, initial encounter Condition: Stable Record reviewed to determine appropriate education?: Yes Instructions: ED Knee Pain UKO Comments: Your blood pressure was elevated today on check into the emergency department. This does not mean that you have hypertension, it is a common phenomenon to come to the emergency department and have elevated blood pressure. I recommend that you see your primary care physician within the week to have it rechecked when you are feeling better. Ibuprofen or Tylenol as needed for pain. Follow-up with your doctor in 2 days for recheck. Return for new or worsening symptoms. Discharge Date/Time: 10/28/18 20:45
[2018-10-28 16:56] LABS: BASOPHILS % (AUTO) 0.7 %; EOSINOPHILS % (AUTO) 1.7 %; HGB - HEMOGLOBIN 11.7 g/dL (12.0-16.0); LYMPHOCYTES % (AUTO) 36.7 %; MEAN CORPUSCULAR HEMOGLOBIN 27.5 pg (27.0-31.0); MEAN CORPUSCULAR HGB CONC 31.9 g/dL (32.0-36.0); MEAN CORPUSCULAR VOLUME 86.3 fL (81.0-99.0); MEAN PLATELET VOLUME 8.8 fL (7.9-10.8); MONOCYTES % (AUTO) 14.8 %; NEUTROPHILS % (AUTO) 46.1 %; PLT - PLATELET COUNT 351 10^3/uL (130-450); RED BLOOD COUNT 4.26 10^6/uL (4.20-5.40); RED CELL DISTRIBUTION WIDTH 16.5 % (12.0-15.0); WHITE BLOOD COUNT 16.4 x10^3/uL (4.8-10.8)
[2018-10-28 16:58] LABS: ABNORMAL LYMPHS % (MANUAL) 0 %
[2018-10-28 17:10] LABS: ALBUMIN 3.2 g/dL (3.2-5.5); ALBUMIN/GLOBULIN RATIO 1.1 (1.0-2.2); BAND NEUTROPHILS % (MANUAL) 3 %; BILIRUBIN,TOTAL 0.2 mg/dL (0.2-1.0); CALCIUM 8.1 mg/dL (8.5-10.3); CREATININE 0.6 mg/dL (0.4-1.0); DIFFERENTIAL COMMENT MANUAL DIFFERENTIAL; EOSINOPHILS # (MANUAL) 0.2 10^3/uL (0-0.7); LYMPHOCYTES # (MANUAL) 5.9 10^3/uL (1.5-3.5); LYMPHOCYTES % (MANUAL) 36 %; NEUTROPHILS # (MANUAL) 8.4 10^3/uL (1.5-6.6); NEUTROPHILS % (MANUAL) 48 %; PLATELET ESTIMATE, MANUAL NORMAL (130-450,000) (NORMAL); PLATELET MORPHOLOGY NORMAL APPEARANCE (NORMAL); RBC MORPHOLOGY (MULTIPLE) 1+ ANISOCYTOSIS (NORMAL)
[2018-10-28 17:22] LABS: VALPROIC ACID (DEPAKOTE) 49.9 ug/mL
[2018-10-28] MEDS ORDERED: IBUPROFEN 600 MG TABLET PO STA (17:34)
--- NOTE | 2018-10-28 17:50 | XRAY Report ---
Reason: B knee pain p fall Procedure Date: 10/28/2018 Accession Number: [id number] / [id number] Procedure: XR - Knee 4 View BILAT CPT Code: FULL RESULT: EXAMS: 1. Right Knee Radiography 2. Left Knee Radiography EXAM DATE:10/28/2018 05:26 PM. CLINICAL HISTORY:Bilateral knee pain. COMPARISON: XR KNEE 4 OR MORE VIEWS 11/26/2011 12:50 PM. TECHNIQUE: 3 views each. FINDINGS: Right Knee: Bones: As before, there is patchy sclerotic change along the tibial plateau and metaphysis similar to the prior 11/26/2011 radiograph suggesting benign/indolent process. No fracture. Joints: Normal. No effusion. No subluxations. Soft Tissues: Normal. No soft tissue swelling. Left Knee: Bones: Normal. No fractures or bone lesions. Joints: Normal. No effusion. No subluxations. Soft Tissues: Normal. No soft tissue swelling. IMPRESSION: No acute findings. RADIA
[2018-10-28] MEDS ORDERED: ALBUTEROL NEB 2.5 MG/3 ML INH STA (18:43)
--- NOTE | 2018-10-28 20:14 | CT Report ---
Reason: R hip pain Procedure Date: 10/28/2018 Accession Number: [id number] / [id number] Procedure: CT - PELVIS WO CPT Code: FULL RESULT: EXAM: CT BONY PELVIS WITHOUT CONTRAST EXAM DATE: 10/28/2018 07:30 PM. CLINICAL HISTORY: R hip pain. COMPARISON: None. TECHNIQUE: Thin-section axial images were acquired of the pelvis without contrast. Post-processing: Coronal and sagittal reformats. Other: None. In accordance with CT protocol optimization, one or more of the following dose reduction techniques were utilized for this exam: automated exposure control, adjustment of mA and/or KV based on patient size, or use of iterative reconstructive technique. FINDINGS: Bones: No fracture or bone lesion. Mild erosions right bone inferior right sacroiliac joint. Sacroiliac Joints: No widening, erosions, or sclerosis. Symphysis Pubis: Unremarkable. Right Hip: The joint space is preserved. No calcified loose bodies. Left Hip: The joint space is preserved. No calcified loose bodies. Musculature: Normal. No fatty atrophy. Pelvic Cavity: The visualized bowel, bladder, and reproductive organs are unremarkable on this noncontrast exam. Other: No lymphadenopathy. No free air or free fluid. The other visualized soft tissues are unremarkable. IMPRESSION: 1. Negative for right hip fracture. 2. Inferior right sacroiliitis RADIA
[2018-10-28] MEDS ORDERED: HYDROcod/ACET 5/325 Prepack 4 PO STA (20:20)
[2018-10-28 20:37] VITALS: BP 125/76
== END 2018-10-28 20:45 | disposition home or self-care (01) ==
LOC: ED 16:20
DX: R06.2 Wheezing (principal); R55 Syncope and collapse; M25.80 Other specified joint disorders, unspecified joint; S80.01XA Contusion of right knee, initial encounter; S80.02XA Contusion of left knee, initial encounter; W18.30XA Fall on same level, unspecified, initial encounter; R03.0 Elevated blood-pressure reading, without diagnosis of hypertension; E11.8 Type 2 diabetes mellitus with unspecified complications; Z79.84 Long term (current) use of oral hypoglycemic drugs
CPT/HCPCS: 36415; 72192; 73564; 80053; 80164; 83690; 84484; 85025; 93005; 94640; 99283; 99284; A9270

== ENCOUNTER 2018-10-30 16:20 | Outpatient (CLI) | payer MEDICARE, MEDICAID | END 2018-10-30 16:21 | disposition critical access hospital (66) | LOC: EMS 16:20 | PROVIDERS: ATTEND Surgery | DX: R45.851 Suicidal ideations (principal) | CPT/HCPCS: A0425; A0429 ==

== ENCOUNTER 2018-10-30 16:43 | Emergency (ER) | payer MEDICARE, MEDICAID ==
[2018-10-30 17:25] LABS: MUDS CUTOFF CONCENTRATIONS CUTOFF CONC BELOW:
[2018-10-30 17:26] LABS: BILIRUBIN,URINE NEGATIVE (NEGATIVE); GLUCOSE, URINE (UA) NEGATIVE (NEGATIVE); KETONES,URINE (UA) NEGATIVE (NEGATIVE); LEUKOCYTE ESTERASE, URINE NEGATIVE (NEGATIVE); NITRITE,URINE NEGATIVE (NEGATIVE); OCCULT BLOOD,URINE NEGATIVE (NEGATIVE); PROTEIN,URINE NEGATIVE (NEGATIVE); UROBILINOGEN,URINE 0.2 (NORMAL) E.U./dL (NORMAL)
[2018-10-30 17:27] LABS: CLARITY,URINE CLEAR (CLEAR)
[2018-10-30 17:28] LABS: BASOPHILS # (AUTO) 0.2 10^3/uL (0.0-0.1); BASOPHILS % (AUTO) 1.3 %; EOSINOPHILS # (AUTO) 0.2 10^3/uL (0.0-0.7); EOSINOPHILS % (AUTO) 1.2 %; HGB - HEMOGLOBIN 12.7 g/dL (12.0-16.0); LYMPHOCYTES # (AUTO) 4.8 10^3/uL (1.5-3.5); LYMPHOCYTES % (AUTO) 27.8 %; MEAN CORPUSCULAR HEMOGLOBIN 27.5 pg (27.0-31.0); MEAN CORPUSCULAR HGB CONC 31.7 g/dL (32.0-36.0); MEAN CORPUSCULAR VOLUME 86.8 fL (81.0-99.0); MONOCYTES % (AUTO) 11.6 %; NEUTROPHILS % (AUTO) 58.1 %; PLT - PLATELET COUNT 343 10^3/uL (130-450); RED BLOOD COUNT 4.61 10^6/uL (4.20-5.40); RED CELL DISTRIBUTION WIDTH 16.3 % (12.0-15.0); WHITE BLOOD COUNT 17.2 x10^3/uL (4.8-10.8)
[2018-10-30 17:35] LABS: ACETAMINOPHEN < 10 ug/mL (10-30); ALBUMIN 3.6 g/dL (3.2-5.5); ALKALINE PHOSPHATASE 58 IU/L (42-121); ALT ALANINE AMINOTRANSFERASE 15 IU/L (10-60); AST ASPARTATE AMINOTRANSFERASE 19 IU/L (10-42); BILIRUBIN,TOTAL 0.2 mg/dL (0.2-1.0); BUN - BLOOD UREA NITROGEN 10 mg/dL (6-20); CARBON DIOXIDE - CO2 27 mmol/L (21-32); CHLORIDE 100 mmol/L (101-111); CREATININE 0.7 mg/dL (0.4-1.0); GFR - MDRD 87 (>89); GLUCOSE 130 mg/dL (70-100); LIPASE 21 U/L (22-51); SALICYLATE < 6.0 mg/dL; SODIUM 138 mmol/L (135-145); TOTAL PROTEIN 7.3 g/dL (6.7-8.2)
[2018-10-30 17:39] LABS: AMPHETAMINE SCREEN,URINE NEGATIVE (NEGATIVE); BENZODIAZEPINES SCREEN, URINE NEGATIVE (NEGATIVE); COCAINE SCREEN URINE NEGATIVE (NEGATIVE); METHADONE SCREEN, URINE NEGATIVE (NEGATIVE); METHAMPHETAMINES SCREEN, URINE NEGATIVE (NEGATIVE); OXYCODONE SCREEN, URINE NEGATIVE (NEGATIVE); PROPOXYPHENE SCREEN, URINE NEGATIVE (NEGATIVE); TRICYCLIC ANTIDEPRESSANT,URINE NEGATIVE (NEGATIVE)
[2018-10-30 17:40] LABS: OPIATE SCREEN, URINE POSITIVE (NEGATIVE)
--- NOTE | 2018-10-30 17:46 | ED Physician Documentation ---
PD HPI MHE - Stated complaint Stated Complaint: SI - Chief complaint Chief Complaint: MHE - History obtained from History obtained from: Patient - History of Present Illness Primary symptom: Suicidal ideation (She developed suicidal ideation with plan today in relation to home stressors. The plan is no longer there but she is still suicidal and would like to seek placement. 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 HEENT: None Psych: Depression, Bipolar disorder, Schizophrenia, Post traumatic stress disorder Musculoskeletal: None Derm: None - Past Surgical History Past Surgical History: Yes General: Bowel surgery Ortho: Other /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[employer]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: 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 HEENT: Cataracts - Present Medications Home Medications: Ambulatory Orders Medication Instructions Recorded Confirmed RX: metFORMIN [Glucophage] 500 mg ORAL TID 09/06/18 10/28/18 Mirtazapine [Remeron] 15 mg ORAL QPM #5 tablet 09/29/18 10/28/18 OLANZapine [Olanzapine] 10 mg ORAL BID #10 tablet 09/29/18 10/28/18 RX: Divalproex ER [Depakote ER] 750 mg PO BID #30 tablet 09/29/18 10/28/18 RX: Prazosin HCl 1 mg PO QPM #5 capsule 09/29/18 10/28/18 clonazePAM [Clonazepam] 1 mg ORAL BID #10 tablet 09/29/18 10/28/18 Ondansetron Odt [Zofran] 4 mg TL Q6H PRN #10 tablet 10/15/18 10/28/18 RX: Albuterol Sulf [Ventolin Hfa 1 - 2 puffs INH Q4HR PRN #1 inhaler 10/15/18 10/28/18 Inhaler] Promethazine [Phenergan] 25 mg PO Q6H PRN #10 tab 10/22/18 10/28/18 RX: Baclofen 5 mg PO BID 10/28/18 10/28/18 - Allergies Allergies/Adverse Reactions: Allergies Allergy/AdvReac Type Severity Reaction Status Date / Time azithromycin Allergy Severe Hives Verified 10/26/18 18:33 haloperidol Allergy Severe Anaphylaxis Verified 10/26/18 18:33 Penicillins Allergy Severe Anaphylaxis Verified 10/26/18 18:33 amoxicillin [Amoxicillin] Allergy Intermediate Rash Verified 10/26/18 18:33 grapefruit Allergy Intermediate Rash Verified 10/26/18 18:33 iodine Allergy Intermediate Rash Verified 10/26/18 18:33 Sulfa (Sulfonamide Allergy Intermediate Rash Verified 10/26/18 18:33 Antibiotics) haloperidol lactate * AdvReac Rash Verified 10/26/18 18:33 [From Haldol] - Social History Does the pt smoke?: Yes Smoking Status: Current every day smoker Does the pt drink ETOH?: No Does the pt have substance abuse?: No - Family History Family history: reports: Non contributory - Immunizations Immunizations are current?: No Immunizations: TDAP >10years/unknown - POLST Patient has POLST: No PD ED PE NORMAL - Vitals Vital signs reviewed: Yes - General General: Alert and oriented X 3, No acute distress - HEENT HEENT: PERRL, EOMI - Neck Neck: Supple, no meningeal sign, No bony TTP - Cardiac Cardiac: RRR, No murmur - Respiratory Respiratory: Other (She is wheezy throughout but declines a breathing treatment and on initial evaluation.) - Abdomen Abdomen: Soft, Non tender - Back Back: No CVA TTP, No spinal TTP - Derm Derm: Normal color, Warm and dry - Extremities Extremities: No edema, No calf tenderness / cord - Neuro Neuro: Alert and oriented X 3, Normal speech Results - Vitals Vitals: Vital Signs - 24 hr 10/30/18 10/30/18 10/30/18 16:53 22:41 23:50 Temperature 37 C Heart Rate 74 78 Respiratory 18 18 16 Rate Blood Pressure 139/76 H 133/78 H O2 Saturation 99 97 10/31/18 06:53 Temperature 36.6 C Heart Rate 85 Respiratory 16 Rate Blood Pressure 112/73 O2 Saturation 95 Oxygen O2 Source [With Activity] Room air O2 Source [Without Activity] Room air O2 Source Room air - Labs Labs: Laboratory Tests 10/30/18 10/30/18 10/30/18 17:00 17:00 17:09 WBC 17.2 H RBC 4.61 Hgb 12.7 Hct 40.0 MCV 86.8 MCH 27.5 MCHC 31.7 L RDW 16.3 H Plt Count 343 MPV 9.0 Neut # (Auto) 10.0 H Lymph # (Auto) 4.8 H [place] # (Auto) 2.0 H Eos # (Auto) 0.2 Baso # (Auto) 0.2 H Absolute Nucleated RBC 0.02 Nucleated RBC % 0.1 Sodium Potassium Chloride Carbon Dioxide Anion Gap BUN Creatinine Estimated GFR (MDRD) Glucose Calcium Total Bilirubin AST ALT Alkaline Phosphatase Total Protein Albumin Globulin Albumin/Globulin Ratio Lipase TSH Urine Color YELLOW Urine Clarity CLEAR Urine pH 7.[address] [place] <=1.005 Urine Protein NEGATIVE Urine Glucose (UA) NEGATIVE Urine Ketones NEGATIVE Urine Occult Blood NEGATIVE Urine Nitrite NEGATIVE Urine Bilirubin NEGATIVE Urine Urobilinogen 0.2 (NORMAL) Ur Leukocyte Esterase NEGATIVE Ur Microscopic Review NOT INDICATED Urine Culture Comments NOT INDICATED Last Dose Date UNKNOWN Last Dose Time UNKNOWN Salicylates Urine Opiates Screen POSITIVE H Ur Oxycodone Screen NEGATIVE Urine Methadone Screen NEGATIVE Ur Propoxyphene Screen NEGATIVE Acetaminophen Ur Barbiturates Screen NEGATIVE Valproic Acid 59.9 Ur Tricyclics Screen NEGATIVE Ur Phencyclidine Scrn NEGATIVE Ur Amphetamine Screen NEGATIVE U Methamphetamines Scrn NEGATIVE U Benzodiazepines Scrn NEGATIVE Urine Cocaine Screen NEGATIVE U Cannabinoids Screen NEGATIVE Ethyl Alcohol 10/30/18 10/30/18 17:09 17:09 WBC RBC Hgb Hct MCV MCH MCHC RDW Plt Count MPV Neut # (Auto) Lymph # (Auto) [place] # (Auto) Eos # (Auto) Baso # (Auto) Absolute Nucleated RBC Nucleated RBC % Sodium 138 Potassium 4.0 Chloride 100 L Carbon Dioxide 27 Anion Gap 11.0 BUN 10 Creatinine 0.7 Estimated GFR (MDRD) 87 L Glucose 130 H Calcium 9.0 Total Bilirubin 0.2 AST 19 ALT 15 Alkaline Phosphatase 58 Total Protein 7.3 Albumin 3.6 Globulin 3.7 Albumin/Globulin Ratio 1.0 Lipase 21 L TSH 2.64 Urine Color Urine Clarity Urine pH Ur Specific [place] Urine Protein Urine Glucose (UA) Urine Ketones Urine Occult Blood Urine Nitrite Urine Bilirubin Urine Urobilinogen Ur Leukocyte Esterase Ur Microscopic Review Urine Culture Comments Last Dose Date Last Dose Time Salicylates < 6.0 Urine Opiates Screen Ur Oxycodone Screen Urine Methadone Screen Ur Propoxyphene Screen Acetaminophen < 10 L Ur Barbiturates Screen Valproic Acid Ur Tricyclics Screen Ur Phencyclidine Scrn Ur Amphetamine Screen U Methamphetamines Scrn U Benzodiazepines Scrn Urine Cocaine Screen U Cannabinoids Screen Ethyl Alcohol < 5.0 PD MEDICAL DECISION MAKING - ED course ED course: This is a 53-year-old woman with chronic psychiatric illness who presents with suicidal ideation and intermittent plan. She was evaluated by social work and she is medically stable for psychiatric transfer and evaluation. Unfortunately no beds were available tonight she will board in the emergency department pending further evaluation and treatment by social work in the morning. She requested discharge at 10:30 PM. However she would not contract for safety and still endorses SI, she agreed to stay in the ED. Departure - Departure Disposition: [facility] Psych Hosp/Unit DC/Xfer Clinical Impression: Suicidal ideation Condition: Stable Discharge Date/Time: 10/31/18 10:54
[2018-10-30 18:54] LABS: VALPROIC ACID (DEPAKOTE) 59.9 ug/mL
[2018-10-30] MEDS ORDERED: diazePAM 5 MG TABLET PO STA (22:31)
[2018-10-31 06:53] VITALS: BP 112/73
--- NOTE | 2018-10-31 09:23 | ED Physician Documentation ---
ED Addendum - Addendum Addendum: 10/31/18 09:22 Accepted to [facility] for suicidal ideation by Dr. Yasmany Larsen. COBRA forms filled out. Patient transferred Departure - Departure Disposition: [facility] Psych Hosp/Unit DC/Xfer Clinical Impression: Suicidal ideation Condition: Stable
== END 2018-10-31 10:54 ==
LOC: EDUNIT# → ED 16:43
DX: R45.851 Suicidal ideations (principal); E11.9 Type 2 diabetes mellitus without complications; F31.9 Bipolar disorder, unspecified; F20.9 Schizophrenia, unspecified; F43.10 Post-traumatic stress disorder, unspecified; F17.200 Nicotine dependence, unspecified, uncomplicated; Z75.1 Person awaiting admission to adequate facility elsewhere; Z79.84 Long term (current) use of oral hypoglycemic drugs; Z79.899 Other long term (current) drug therapy
CPT/HCPCS: 36415; 80164; 81003; 83690; 93005; 99283; 99284; A9270; 80053; 80306; 80307; 80320; 80329; 81001; 84443; 85025; 87086

== ENCOUNTER 2018-11-08 19:41 | Outpatient (CLI) | payer MEDICARE, MEDICAID | END 2018-11-08 19:42 | disposition critical access hospital (66) | LOC: EMS 19:41 | PROVIDERS: ATTEND Surgery | DX: R19.7 Diarrhea, unspecified (principal); G47.00 Insomnia, unspecified | CPT/HCPCS: A0425; A0429 ==

== ENCOUNTER 2018-11-08 20:01 | Emergency (ER) | payer MEDICARE, MEDICAID ==
[2018-11-08] MEDS ORDERED: IPRATROPIUM/ALBUTEROL 3 ML NEB INH STA (20:07)
[2018-11-08 20:10] VITALS: BP 133/92
--- NOTE | 2018-11-08 20:10 | ED Physician Documentation ---
History of Present Illness - Stated complaint Stated Complaint: INSOMNIA - History obtained from History obtained from: Patient, EMS - History of Present Illness Timing: How many days ago (3) - Additonal information Additional information: 53-year-old female with a history of schizoaffective disorder has developed cough congestion fever vomiting and diarrhea over the past 3 days. She feels dehydrated and has not been able to sleep. She called the ambulance because she had not slept in 24 hours. Review of Systems Constitutional: reports: Fever, Chills, Myalgias Ears: denies: Ear pain Nose: reports: Rhinorrhea / runny nose, Congestion Throat: reports: Sore throat Cardiac: denies: Chest pain / pressure, Palpitations Respiratory: reports: Dyspnea, Cough GI: reports: Nausea, Vomiting, Diarrhea. denies: Abdominal Pain : denies: Dysuria, Frequency Skin: denies: Rash Musculoskeletal: denies: Neck pain, Back pain, Extremity pain Neurologic: reports: Generalized weakness. 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 : None HEENT: None Psych: Depression, Bipolar disorder, Schizophrenia, Post traumatic stress disorder Musculoskeletal: None Derm: None - Past Surgical History Past Surgical History: Yes General: Bowel surgery Ortho: Other /HOGSHEAD BUILDER: 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 HEENT: Cataracts - Present Medications Home Medications: Ambulatory Orders Medication Instructions Recorded Confirmed metFORMIN [Glucophage] 500 mg ORAL TID 09/06/18 10/28/18 Divalproex ER [Depakote ER] 750 mg PO BID #30 tablet 09/29/18 10/28/18 Mirtazapine [Remeron] 15 mg ORAL QPM #5 tablet 09/29/18 10/28/18 OLANZapine [Olanzapine] 10 mg ORAL BID #10 tablet 09/29/18 10/28/18 Prazosin HCl 1 mg PO QPM #5 capsule 09/29/18 10/28/18 clonazePAM [Clonazepam] 1 mg ORAL BID #10 tablet 09/29/18 10/28/18 Albuterol Sulf [Ventolin Hfa 1 - 2 puffs INH Q4HR PRN #1 inhaler 10/15/18 10/28/18 Inhaler] Ondansetron Odt [Zofran] 4 mg TL Q6H PRN #10 tablet 10/15/18 10/28/18 Promethazine [Phenergan] 25 mg PO Q6H PRN #10 tab 10/22/18 10/28/18 Baclofen 5 mg PO BID 10/28/18 10/28/18 - Allergies Allergies/Adverse Reactions: Allergies Allergy/AdvReac Type Severity Reaction Status Date / Time azithromycin Allergy Severe Hives Verified 11/08/18 20:05 haloperidol Allergy Severe Anaphylaxis Verified 11/08/18 20:05 Penicillins Allergy Severe Anaphylaxis Verified 11/08/18 20:05 amoxicillin [Amoxicillin] Allergy Intermediate Rash Verified 11/08/18 20:05 grapefruit Allergy Intermediate Rash Verified 11/08/18 20:05 iodine Allergy Intermediate Rash Verified 11/08/18 20:05 Sulfa (Sulfonamide Allergy Intermediate Rash Verified 11/08/18 20:05 Antibiotics) haloperidol lactate * AdvReac Rash Verified 11/08/18 20:05 [From Haldol] - Social History Does the pt smoke?: Yes Smoking Status: Current every day smoker Does the pt drink ETOH?: No Does the pt have substance abuse?: No - Immunizations Immunizations are current?: No Immunizations: TDAP >10years/unknown - POLST Patient has POLST: No PD ED PE NORMAL - Vitals Vital signs reviewed: Yes - General General: No acute distress, Well developed/nourished, Other (coughing frequently ) - HEENT HEENT: Atraumatic, PERRL, EOMI, Other (mild inflamation in the attic bilaterally with retained landmarks. ) - Neck Neck: Supple, no meningeal sign, No bony TTP - Cardiac Cardiac: RRR, No murmur - Respiratory Respiratory: No respiratory distress, Other (diminished breath sounds and scattered wheezes) - Abdomen Abdomen: Soft, Non tender - Back Back: No CVA TTP, No spinal TTP - Derm Derm: Normal color, Warm and dry, No rash - Extremities Extremities: No deformity, No edema - Neuro Neuro: Alert and oriented X 3, contact lens fitter 2-12 intact, No motor deficit, No sensory deficit, Normal speech Eye Opening: Spontaneous Motor: Obeys Commands Verbal: Oriented GCS Score: 15 - Psych Psych: Normal mood, Normal affect Results - Vitals Vitals: Vital Signs - 24 hr 11/08/18 11/08/18 11/08/18 20:05 20:07 20:09 Temperature 37.1 C 37.1 C Heart Rate 98 98 98 Respiratory 16 16 16 Rate Blood Pressure 133/92 H 133/92 H 133/92 H O2 Saturation 95 95 95 11/08/18 20:33 Temperature Heart Rate 88 Respiratory 20 Rate Blood Pressure O2 Saturation Oxygen O2 Source [With Activity] Room air O2 Source [Without Activity] Room air O2 Source Room air - Labs Labs: Laboratory Tests 11/08/18 20:12 Influenza A (Rapid) Negative Influenza B (Rapid) Negative Procedures - IVC sono (time) 2014 Bedside IVC sono: IVC measures (cm) (1.39), IVC collapsed c insp (cm) (complete), Dehydration (minimal est 500ml deficit) PD MEDICAL DECISION MAKING - ED course Complexity details: reviewed old records, reviewed results, re-evaluated patient, considered differential, d/w patient ED course: 53-year-old female with a history of schizoaffective disorder has developed upper rest Tory symptoms today and her caregiver was ill as well. She was negative for influenza and she was found to be minimally dehydrated not requiring IV hydration and her blood glucose was 107. She is administered dexamethasone and a DuoNeb treatment. Departure - Departure Disposition: 01 Home, Self Care Clinical Impression: Upper respiratory infection Qualifiers: URI type: unspecified viral URI Qualified Code(s): J06.9 - Acute upper respiratory infection, unspecified Insomnia Qualifiers: Insomnia type: unspecified Qualified Code(s): G47.00 - Insomnia, unspecified Condition: Stable Instructions: ED URI Viral W Wheezing, ED Insomnia Follow-Up: Patricia Hunter DNP [Primary Care Provider] -
[2018-11-08] MEDS ORDERED: ONDANSETRON ODT 4 MG TABLET TL STA (20:18)
[2018-11-08] MEDS ORDERED: DEXAMETHASONE 10 MG/ML VIAL PO STA (20:18)
[2018-11-08] MEDS ORDERED: KETOROLAC 60 MG/2 ML VIAL IM STA (21:19)
[2018-11-08] MEDS ORDERED: LORazepam 1 MG TABLET PO STA (21:20)
== END 2018-11-08 21:44 | disposition home or self-care (01) ==
LOC: EDUNIT# → ED 20:01
DX: J06.9 Acute upper respiratory infection, unspecified (principal); G47.00 Insomnia, unspecified; E11.9 Type 2 diabetes mellitus without complications; Z79.84 Long term (current) use of oral hypoglycemic drugs; F17.200 Nicotine dependence, unspecified, uncomplicated
CPT/HCPCS: 87275; 87276; 94640; 96372; 99283; J8499; Q0162

== ENCOUNTER 2018-11-10 16:19 | Outpatient (CLI) | payer MEDICARE, MEDICAID | END 2018-11-10 16:20 | disposition critical access hospital (66) | LOC: EMS 16:19 | PROVIDERS: ATTEND Surgery | DX: R51 Headache (principal) | CPT/HCPCS: A0425; A0429 ==

== ENCOUNTER 2018-11-10 16:38 | Emergency (ER) | payer MEDICARE, MEDICAID ==
[2018-11-10] MEDS ORDERED: diphenhydrAMINE INJ 50 MG/ML VIAL IM STA (17:03)
[2018-11-10] MEDS ORDERED: SUMAtriptan 6 MG/0.5 ML VIAL SUBQ STA (17:03)
[2018-11-10] MEDS ORDERED: PROCHLORPERAZINE 10 MG/2 ML VIAL IM STA (17:03)
--- NOTE | 2018-11-10 17:05 | ED Physician Documentation ---
History of Present Illness - Stated complaint Stated Complaint: MIGRAINE/D - Chief complaint Chief Complaint: General - History obtained from History obtained from: Patient - History of Present Illness Timing: Today Pain level max: 8 Pain level now: 8 - Additonal information Additional information: 53-year-old female presents to the emergency department complaining of an allover gradual onset headache. Took ibuprofen this morning without relief. Has a long history of migraines. Has had nausea and vomiting as well. No fevers. No trauma. Worse with light and sound. Nothing makes it better. 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 HEENT: None Psych: Depression, Bipolar disorder, Schizophrenia, Post traumatic stress disorder Musculoskeletal: None Derm: None - Past Surgical History Past Surgical History: Yes General: Bowel surgery Ortho: 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 LABORER: 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 HEENT: Cataracts - Present Medications Home Medications: Ambulatory Orders Medication Instructions Recorded Confirmed metFORMIN [Glucophage] 500 mg ORAL TID 09/06/18 10/28/18 Divalproex ER [Depakote ER] 750 mg PO BID #30 tablet 09/29/18 10/28/18 Mirtazapine [Remeron] 15 mg ORAL QPM #5 tablet 09/29/18 10/28/18 OLANZapine [Olanzapine] 10 mg ORAL BID #10 tablet 09/29/18 10/28/18 Prazosin HCl 1 mg PO QPM #5 capsule 09/29/18 10/28/18 clonazePAM [Clonazepam] 1 mg ORAL BID #10 tablet 09/29/18 10/28/18 Albuterol Sulf [Ventolin Hfa 1 - 2 puffs INH Q4HR PRN #1 inhaler 10/15/18 10/28/18 Inhaler] Ondansetron Odt [Zofran] 4 mg TL Q6H PRN #10 tablet 10/15/18 10/28/18 Promethazine [Phenergan] 25 mg PO Q6H PRN #10 tab 10/22/18 10/28/18 Baclofen 5 mg PO BID 10/28/18 10/28/18 - Allergies Allergies/Adverse Reactions: Allergies Allergy/AdvReac Type Severity Reaction Status Date / Time azithromycin Allergy Severe Hives Verified 11/11/18 15:16 haloperidol Allergy Severe Anaphylaxis Verified 11/11/18 15:16 Penicillins Allergy Severe Anaphylaxis Verified 11/11/18 15:16 amoxicillin [Amoxicillin] Allergy Intermediate Rash Verified 11/11/18 15:16 grapefruit Allergy Intermediate Rash Verified 11/11/18 15:16 iodine Allergy Intermediate Rash Verified 11/11/18 15:16 Sulfa (Sulfonamide Allergy Intermediate Rash Verified 11/11/18 15:16 Antibiotics) haloperidol lactate * AdvReac Rash Verified 11/11/18 15:16 [From Haldol] - Social History Does the pt smoke?: Yes Smoking Status: Current every day smoker Does the pt drink ETOH?: No Does the pt have substance abuse?: No - Immunizations Immunizations are current?: No Immunizations: TDAP >10years/unknown - POLST Patient has POLST: No PD ED PE NORMAL - Vitals Vital signs reviewed: Yes - General General: Alert and oriented X 3, No acute distress - HEENT HEENT: Atraumatic, PERRL, Moist mucous membranes - Neck Neck: Supple, no meningeal sign - Cardiac Cardiac: RRR - Respiratory Respiratory: No respiratory distress, Clear bilaterally - Abdomen Abdomen: Soft, Non tender, Non distended - Derm Derm: Warm and dry - Neuro Neuro: Alert and oriented X 3, grades 1 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 6 home teacher 2-12 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, No motor deficit, No sensory deficit - Psych Psych: Normal mood, Normal affect Results - Vitals Vitals: Vital Signs - 24 hr 11/10/18 11/10/18 11/10/18 16:42 16:46 18:00 Temperature 36.3 C L Heart Rate 87 87 81 Respiratory 14 14 16 Rate Blood Pressure 146/82 H 146/82 H 136/82 H O2 Saturation 96 96 95 Oxygen O2 Source [With Activity] Room air O2 Source [Without Activity] Room air O2 Source Room air PD MEDICAL DECISION MAKING - ED course Complexity details: re-evaluated patient, considered differential, d/w patient ED course: 53-year-old female presents to the emergency department with her usual migraine headache. She is well-appearing, nontoxic. Afebrile. No subarachnoid hemorrhage. Headache resolved with Imitrex, Compazine and Benadryl. Tolerating p.o. without Difficulty. Request to go home at this time. Patient counseled regarding signs and symptoms for which I believe and urgent re-evaluation would be necessary. Patient with good understanding of and agreement to plan and is comfortable going home at this time This document was made in part using voice recognition software. While efforts are made to proofread this document, sound alike and grammatical errors may occur. Departure - Departure Disposition: Home, Self Care Clinical Impression: Migraine Qualifiers: Migraine type: unspecified Status migrainosus presence: without status migrainosus Intractability: not intractable Qualified Code(s): G43.909 - Migraine, unspecified, not intractable, without status migrainosus Condition: Good Instructions: ED Headache Migraine Follow-Up: Patricia Hunter DNP [Primary Care Provider] - Within 1 week Comments: Follow-up with your doctor for further care. Return if you worsen. Discharge Date/Time: 11/10/18 18:00
[2018-11-10 18:01] VITALS: BP 136/82
== END 2018-11-10 18:00 | disposition home or self-care (01) ==
LOC: EDUNIT# → ED 16:38
DX: G43.909 Migraine, unspecified, not intractable, without status migrainosus (principal); E11.9 Type 2 diabetes mellitus without complications; Z79.84 Long term (current) use of oral hypoglycemic drugs
CPT/HCPCS: 99282; 99283; J1200

== ENCOUNTER 2018-11-11 14:15 | Outpatient (CLI) | payer MEDICARE, MEDICAID | END 2018-11-11 14:16 | disposition critical access hospital (66) | LOC: EMS 14:15 | PROVIDERS: ATTEND Surgery | DX: R07.89 Other chest pain (principal) | CPT/HCPCS: A0425; A0429 ==

== ENCOUNTER 2018-11-11 14:37 | Emergency (ER) | payer MEDICARE, MEDICAID ==
--- NOTE | 2018-11-11 15:58 | XRAY Report ---
Reason: soa/chest pain Procedure Date: 11/11/2018 Accession Number: [id number] / [id number] Procedure: XR - Chest 2 View X-Ray CPT Code: 54698 FULL RESULT: EXAM: CHEST RADIOGRAPHY. EXAM DATE: 11/11/2018 03:31 PM. CLINICAL HISTORY: Shortness of air/chest pain. COMPARISON: Chest 2 view 10/22/2018 8:02 PM. TECHNIQUE: 2 views. FINDINGS: Lungs/Pleura: Redemonstration of mild airway thickening, also seen on the previous study. No focal opacities evident. No pleural effusion. No pneumothorax. Normal volumes. Mediastinum: Heart and mediastinal contours are stable, not enlarged. Other: None. IMPRESSION: Persistent mild airway thickening without lobar consolidation. RADIA
--- NOTE | 2018-11-11 17:13 | ED Physician Documentation ---
PD HPI CHEST PAIN - Stated complaint Stated Complaint: Chest tightness - Chief complaint Chief Complaint: General - History obtained from History obtained from: Patient - History of Present Illness Timing - onset: How many days ago (3-4 days of some cough and wheezing. Worse today, and did not have inhaler with her. Had migraine last night and was seen here but did not complain of the breathing problems at that time.) Timing - onset during: Light activity Timing - duration: Weeks (1) Timing - details: Gradual onset, Waxing and waning Quality: Tightness Location: Substernal, Left chest Worsened by: No: Other (coughing and feeling wheezing.) Associated symptoms: Shortness of air, Cough. No: Nausea, Vomiting, Palpitations Similar symptoms before: Diagnosis (asthma) Recently seen: Emergency Dept (yesterday for headache, and seen often for various complaints.) Review of Systems Constitutional: denies: Fever, Chills Nose: reports: Congestion. denies: Rhinorrhea / runny nose Throat: denies: Sore throat Respiratory: reports: Dyspnea, Cough, Wheezing Skin: denies: Rash, Lesions Musculoskeletal: reports: Back pain (chronic). denies: Extremity swelling Neurologic: reports: Generalized weakness. 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 : None HEENT: None Psych: Depression, Bipolar disorder, Schizophrenia, Post traumatic stress di sorder Musculoskeletal: None Derm: None - Past Surgical History Past Surgical History: Yes General: Bowel surgery Ortho: Other /UNIT MANAGER RN: 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 HEENT: Cataracts - Present Medications Home Medications: Ambulatory Orders Medication Instructions Recorded Confirmed metFORMIN [Glucophage] 500 mg ORAL TID 09/06/18 10/28/18 Divalproex ER [Depakote ER] 750 mg PO BID #30 tablet 09/29/18 10/28/18 Mirtazapine [Remeron] 15 mg ORAL QPM #5 tablet 09/29/18 10/28/18 OLANZapine [Olanzapine] 10 mg ORAL BID #10 tablet 09/29/18 10/28/18 Prazosin HCl 1 mg PO QPM #5 capsule 09/29/18 10/28/18 clonazePAM [Clonazepam] 1 mg ORAL BID #10 tablet 09/29/18 10/28/18 Albuterol Sulf [Ventolin Hfa 1 - 2 puffs INH Q4HR PRN #1 inhaler 10/15/18 10/28/18 Inhaler] Ondansetron Odt [Zofran] 4 mg TL Q6H PRN #10 tablet 10/15/18 10/28/18 Promethazine [Phenergan] 25 mg PO Q6H PRN #10 tab 10/22/18 10/28/18 Baclofen 5 mg PO BID 10/28/18 10/28/18 Albuterol 2.5 mg INH Q4H PRN #30 neb 11/11/18 Albuterol Sulf [Ventolin Hfa 2 - 3 puffs INH Q4HR PRN #1 inhaler 11/11/18 Inhaler] Benzonatate [Tessalon Perle] 100 mg PO TID PRN #25 capsule 11/11/18 Dexamethasone [Decadron] 4 mg PO DAILY #5 tablet 11/11/18 - Allergies Allergies/Adverse Reactions: Allergies Allergy/AdvReac Type Severity Reaction Status Date / Time azithromycin Allergy Severe Hives Verified 11/12/18 14:52 haloperidol Allergy Severe Anaphylaxis Verified 11/12/18 14:52 Penicillins Allergy Severe Anaphylaxis Verified 11/12/18 14:52 amoxicillin [Amoxicillin] Allergy Intermediate Rash Verified 11/12/18 14:52 grapefruit Allergy Intermediate Rash Verified 11/12/18 14:52 iodine Allergy Intermediate Rash Verified 11/12/18 14:52 Sulfa (Sulfonamide Allergy Intermediate Rash Verified 11/12/18 14:52 Antibiotics) haloperidol lactate * AdvReac Rash Verified 11/12/18 14:52 [From Haldol] - Social History Does the pt smoke?: Yes Smoking Status: Current every day smoker Does the pt drink ETOH?: No Does the pt have substance abuse?: No - Immunizations Immunizations are current?: No Immunizations: TDAP >10years/unknown - POLST Patient has POLST: No PD ED PE NORMAL - Vitals Vital signs reviewed: Yes - General General: Alert and oriented X 3, No acute distress, Well developed/nourished - HEENT HEENT: Ears normal, Moist mucous membranes, Pharynx benign - Neck Neck: Supple, no meningeal sign, No adenopathy, No JVD - Cardiac Cardiac: RRR, No murmur - Respiratory Respiratory: No: Clear bilaterally (diffuse wheezing with decreased tidal volume. No coarse sounds. ) - Abdomen Abdomen: Soft, Non tender - Derm Derm: Normal color, Warm and dry - Extremities Extremities: No tenderness to palpate, No edema, No calf tenderness / cord Results - Vitals Vitals: Oxygen O2 Source [With Activity] Room air O2 Source [Without Activity] Room air O2 Source Room air PD MEDICAL DECISION MAKING - ED course Complexity details: re-evaluated patient (feeling much better with single neb treatment. Feeling able to go, and wanting to catch bus home. ), considered differential, d/w patient Departure - Departure Disposition: Home, Self Care Clinical Impression: Acute exacerbation of COPD with asthma Upper respiratory infection Qualifiers: URI type: unspecified URI Qualified Code(s): J06.9 - Acute upper respiratory infection, unspecified Condition: Stable Record reviewed to determine appropriate education?: Yes Instructions: ED URI Viral W Wheezing Follow-Up: Patricia Hunter DNP [Primary Care Provider] - Prescriptions: Albuterol Sulf [Ventolin Hfa Inhaler] 2 - 3 puffs INH Q4HR PRN #1 inhaler PRN Reason: Shortness Of Air/Wheezing Albuterol 2.5 mg INH Q4H PRN #30 neb PRN Reason: Wheezing Benzonatate [Tessalon Perle] 100 mg PO TID PRN #25 capsule PRN Reason: Cough Dexamethasone [Decadron] 4 mg PO DAILY #5 tablet Comments: Use albuterol inhaler or nebulizer 4 times a day and extra times as needed for wheezing. Decadron steroid for inflammation of the airways daily for the next 5 days. Tessalon if needed for cough. Recheck if not improving over the next few days. Your chest x-ray is clear and did not show any pneumonia. This sounds viral. Discharge Date/Time: 11/11/18 17:50
[2018-11-11 17:17] VITALS: BP 144/85
[2018-11-11] MEDS ORDERED: ALBUTEROL NEB 2.5 MG/3 ML INH STA ×2 (17:22→17:37)
[2018-11-11] MEDS ORDERED: DEXAMETHASONE 10 MG/ML VIAL PO STA (17:22)
[2018-11-11] MEDS ORDERED: BENZONATATE 100 MG CAPSULE PO STA (17:22)
== END 2018-11-11 17:50 | disposition home or self-care (01) ==
LOC: EDUNIT# → ED 14:37
DX: J44.1 Chronic obstructive pulmonary disease with (acute) exacerbation (principal); J06.9 Acute upper respiratory infection, unspecified; F17.200 Nicotine dependence, unspecified, uncomplicated; E11.9 Type 2 diabetes mellitus without complications; Z79.84 Long term (current) use of oral hypoglycemic drugs
CPT/HCPCS: 71046; 93005; 94640; 99283; 99284; A9270

== ENCOUNTER 2018-11-12 14:22 | Outpatient (CLI) | payer MEDICARE, MEDICAID | END 2018-11-12 14:23 | disposition critical access hospital (66) | LOC: EMS 14:22 | PROVIDERS: ATTEND Surgery | DX: R45.851 Suicidal ideations (principal) | CPT/HCPCS: A0425; A0429 ==

== ENCOUNTER 2018-11-12 14:43 | Emergency (ER) | payer MEDICARE, MEDICAID ==
[2018-11-12] MEDS ORDERED: diazePAM 5 MG TABLET PO STA (15:01)
--- NOTE | 2018-11-12 15:10 | ED Physician Documentation ---
PD HPI MHE - Stated complaint Stated Complaint: SI - Chief complaint Chief Complaint: MHE - History obtained from History obtained from: Patient - History of Present Illness Primary symptom: Suicidal ideation (53-year-old woman brought in by ambulance for acute on chronic suicidal ideation. It is brought on because she has a difficult relationship with her roommates right now and she is seeking [facility] [place] living arrangements. She states there is no specific plan for suicide but she has a history of multiple attempts in the past, some more gestures and some more serious. She is been seen recently for URI and wheezing. She is wheezing right now but declines a breathing treatment.) Review of Systems Ten Systems: 10 systems reviewed and negative Constitutional: denies: Fever, Chills Nose: reports: Rhinorrhea / runny nose. denies: Congestion Throat: denies: Sore throat Respiratory: reports: Dyspnea, Cough GI: denies: Abdominal Pain, Nausea, Vomiting PD PAST MEDICAL HISTORY - Past Medical History Cardiovascular: Angina, Other Respiratory: COPD, Pneumonia Neuro: Seizure disorder Endocrine/Autoimmune: Type 2 diabetes GI: GERD, Hiatal hernia [employer]: None : None HEENT: None Psych: Depression, Bipolar disorder, Schizophrenia, Post traumatic stress disorder Musculoskeletal: None Derm: None - Past Surgical History Past Surgical History: Yes General: Bowel surgery Ortho: Other /[employer]: 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 HEENT: Cataracts - Present Medications Home Medications: Ambulatory Orders Medication Instructions Recorded Confirmed RX: metFORMIN [Glucophage] 500 mg ORAL TID 09/06/18 10/28/18 Mirtazapine [Remeron] 15 mg ORAL QPM #5 tablet 09/29/18 10/28/18 OLANZapine [Olanzapine] 10 mg ORAL BID #10 tablet 09/29/18 10/28/18 RX: Divalproex ER [Depakote ER] 750 mg PO BID #30 tablet 09/29/18 10/28/18 RX: Prazosin HCl 1 mg PO QPM #5 capsule 09/29/18 10/28/18 clonazePAM [Clonazepam] 1 mg ORAL BID #10 tablet 09/29/18 10/28/18 Ondansetron Odt [Zofran] 4 mg TL Q6H PRN #10 tablet 10/15/18 10/28/18 RX: Albuterol Sulf [Ventolin Hfa 1 - 2 puffs INH Q4HR PRN #1 inhaler 10/15/18 10/28/18 Inhaler] Promethazine [Phenergan] 25 mg PO Q6H PRN #10 tab 10/22/18 10/28/18 RX: Baclofen 5 mg PO BID 10/28/18 10/28/18 Benzonatate [Tessalon Perle] 100 mg PO TID PRN #25 capsule 11/11/18 Dexamethasone [Decadron] 4 mg PO DAILY #5 tablet 11/11/18 RX: Albuterol 2.5 mg INH Q4H PRN #30 neb 11/11/18 RX: Albuterol Sulf [Ventolin Hfa 2 - 3 puffs INH Q4HR PRN #1 inhaler 11/11/18 Inhaler] - Allergies Allergies/Adverse Reactions: Allergies Allergy/AdvReac Type Severity Reaction Status Date / Time azithromycin Allergy Severe Hives Verified 11/12/18 14:52 haloperidol Allergy Severe Anaphylaxis Verified 11/12/18 14:52 Penicillins Allergy Severe Anaphylaxis Verified 11/12/18 14:52 amoxicillin [Amoxicillin] Allergy Intermediate Rash Verified 11/12/18 14:52 grapefruit Allergy Intermediate Rash Verified 11/12/18 14:52 iodine Allergy Intermediate Rash Verified 11/12/18 14:52 Sulfa (Sulfonamide Allergy Intermediate Rash Verified 11/12/18 14:52 Antibiotics) haloperidol lactate * AdvReac Rash Verified 11/12/18 14:52 [From Haldol] - Social History Does the pt smoke?: Yes Smoking Status: Current every day smoker Does the pt drink ETOH?: No Does the pt have substance abuse?: No - Family History Family history: reports: Non contributory - Immunizations Immunizations are current?: No Immunizations: TDAP >10years/unknown - POLST Patient has POLST: No PD ED PE NORMAL - Vitals Vital signs reviewed: Yes - General General: Alert and oriented X 3, No acute distress, Other (Tearful) - HEENT HEENT: PERRL, EOMI - Neck Neck: Supple, no meningeal sign, No bony TTP - Cardiac Cardiac: RRR, No murmur - Respiratory Respiratory: No respiratory distress, Other (wheezy, throughout) - Abdomen Abdomen: Soft, Non tender - Back Back: No CVA TTP, No spinal TTP - Derm Derm: Normal color, No rash - Extremities Extremities: No edema, No calf tenderness / cord - Neuro Neuro: Alert and oriented X 3, Normal speech Results - Vitals Vitals: Vital Signs - 24 hr 11/12/18 11/12/18 11/12/18 14:49 19:05 20:04 Temperature 36.8 C Heart Rate 86 92 84 Respiratory 18 18 18 Rate Blood Pressure 157/104 H 144/86 H O2 Saturation 96 98 11/12/18 11/12/18 11/13/18 20:11 22:09 01:09 Temperature Heart Rate 80 81 69 Respiratory 18 16 16 Rate Blood Pressure 102/58 L 103/60 110/65 O2 Saturation 98 94 97 11/13/18 02:55 Temperature 36.5 C Heart Rate 85 Respiratory 18 Rate Blood Pressure 108/64 O2 Saturation 96 Oxygen O2 Source [With Activity] Room air O2 Source [Without Activity] Room air O2 Source Room air - Labs Labs: Laboratory Tests 11/12/18 11/12/18 11/12/18 14:45 15:19 15:19 WBC 19.5 H RBC 4.53 Hgb 12.5 Hct 38.7 MCV 85.5 MCH 27.7 MCHC 32.4 RDW 16.8 H Plt Count 340 MPV 9.0 Neut # (Auto) 13.3 H Lymph # (Auto) 4.3 H [place] # (Auto) 1.8 H Eos # (Auto) 0.0 Baso # (Auto) 0.1 Absolute Nucleated RBC 0.01 Nucleated RBC % 0.1 Sodium 142 Potassium 3.5 Chloride 108 Carbon Dioxide 22 Anion Gap 12.0 BUN 12 Creatinine 0.6 Estimated GFR (MDRD) 104 Glucose 131 H Calcium 9.4 Total Bilirubin 0.4 AST 18 ALT 16 Alkaline Phosphatase 63 Total Protein 7.8 Albumin 3.7 Globulin 4.1 Albumin/Globulin Ratio 0.9 L Lipase 21 L Urine Color YELLOW Urine Clarity CLEAR Urine pH 5.5 Ur Specific [place] 1.020 Urine Protein NEGATIVE Urine Glucose (UA) NEGATIVE Urine Ketones TRACE Urine Occult Blood NEGATIVE Urine Nitrite NEGATIVE Urine Bilirubin NEGATIVE Urine Urobilinogen 0.2 (NORMAL) Ur Leukocyte Esterase NEGATIVE Ur Microscopic Review NOT INDICATED Urine Culture Comments NOT INDICATED Last Dose Date Last Dose Time Salicylates < 6.0 Urine Opiates Screen NEGATIVE Ur Oxycodone Screen NEGATIVE Urine Methadone Screen NEGATIVE Ur Propoxyphene Screen NEGATIVE Acetaminophen < 10 L Ur Barbiturates Screen NEGATIVE Valproic Acid Ur Tricyclics Screen NEGATIVE Ur Phencyclidine Scrn NEGATIVE Ur Amphetamine Screen NEGATIVE U Methamphetamines Scrn NEGATIVE U Benzodiazepines Scrn POSITIVE H Urine Cocaine Screen NEGATIVE U Cannabinoids Screen NEGATIVE Ethyl Alcohol < 5.0 11/12/18 15:19 WBC RBC Hgb Hct MCV MCH MCHC RDW Plt Count MPV Neut # (Auto) Lymph # (Auto) [place] # (Auto) Eos # (Auto) Baso # (Auto) Absolute Nucleated RBC Nucleated RBC % Sodium Potassium Chloride Carbon Dioxide Anion Gap BUN Creatinine Estimated GFR (MDRD) Glucose Calcium Total Bilirubin AST ALT Alkaline Phosphatase Total Protein Albumin Globulin Albumin/Globulin Ratio Lipase Urine Color Urine Clarity Urine pH Ur Specific [place] Urine Protein Urine Glucose (UA) Urine Ketones Urine Occult Blood Urine Nitrite Urine Bilirubin Urine Urobilinogen Ur Leukocyte Esterase Ur Microscopic Review Urine Culture Comments Last Dose Date Not Reportable Last Dose Time Not Reportable Salicylates Urine Opiates Screen Ur Oxycodone Screen Urine Methadone Screen Ur Propoxyphene Screen Acetaminophen Ur Barbiturates Screen Valproic Acid 65.7 Ur Tricyclics Screen Ur Phencyclidine Scrn Ur Amphetamine Screen U Methamphetamines Scrn U Benzodiazepines Scrn Urine Cocaine Screen U Cannabinoids Screen Ethyl Alcohol PD MEDICAL DECISION MAKING - ED course ED course: 53yo woman who is psychiatrically ill. Has SI. Wants to be hospitliazed. Had a few outbursts in the ED. SW arranged for bed at [facility], she is medically stable for transport. Noting that her leukocytosis is chronic x years. Departure - Departure Disposition: 65 Psych Hosp/Unit DC/Xfer Clinical Impression: Suicidal ideation Condition: Stable Discharge Date/Time: 11/13/18 03:00
[2018-11-12 15:24] LABS: BASOPHILS # (AUTO) 0.1 10^3/uL (0.0-0.1); BASOPHILS % (AUTO) 0.6 %; HGB - HEMOGLOBIN 12.5 g/dL (12.0-16.0); LYMPHOCYTES # (AUTO) 4.3 10^3/uL (1.5-3.5); LYMPHOCYTES % (AUTO) 22.1 %; MEAN CORPUSCULAR HEMOGLOBIN 27.7 pg (27.0-31.0); MEAN CORPUSCULAR HGB CONC 32.4 g/dL (32.0-36.0); MEAN CORPUSCULAR VOLUME 85.5 fL (81.0-99.0); MONOCYTES # (AUTO) 1.8 10^3/uL (0.0-1.0); MONOCYTES % (AUTO) 9.2 %; NEUTROPHILS # (AUTO) 13.3 10^3/uL (1.5-6.6); NEUTROPHILS % (AUTO) 68.1 %; PLT - PLATELET COUNT 340 10^3/uL (130-450); RED BLOOD COUNT 4.53 10^6/uL (4.20-5.40); RED CELL DISTRIBUTION WIDTH 16.8 % (12.0-15.0); WHITE BLOOD COUNT 19.5 x10^3/uL (4.8-10.8)
[2018-11-12 15:47] LABS: ACETAMINOPHEN < 10 ug/mL (10-30); ALBUMIN 3.7 g/dL (3.2-5.5); ALBUMIN/GLOBULIN RATIO 0.9 (1.0-2.2); ALKALINE PHOSPHATASE 63 IU/L (42-121); ALT ALANINE AMINOTRANSFERASE 16 IU/L (10-60); AST ASPARTATE AMINOTRANSFERASE 18 IU/L (10-42); BILIRUBIN,TOTAL 0.4 mg/dL (0.2-1.0); BUN - BLOOD UREA NITROGEN 12 mg/dL (6-20); CALCIUM 9.4 mg/dL (8.5-10.3); CARBON DIOXIDE - CO2 22 mmol/L (21-32); CHLORIDE 108 mmol/L (101-111); CREATININE 0.6 mg/dL (0.4-1.0); GFR - MDRD 104 (>89); GLUCOSE 131 mg/dL (70-100); LIPASE 21 U/L (22-51); SALICYLATE < 6.0 mg/dL; SODIUM 142 mmol/L (135-145); TOTAL PROTEIN 7.8 g/dL (6.7-8.2)
[2018-11-12 16:05] LABS: VALPROIC ACID (DEPAKOTE) 65.7 ug/mL
[2018-11-12 16:54] LABS: MUDS CUTOFF CONCENTRATIONS CUTOFF CONC BELOW:
[2018-11-12] MEDS ORDERED: LORazepam 1 MG TABLET PO STA (16:56)
[2018-11-12] MEDS ORDERED: metFORMIN 500 MG TABLET PO STA (16:56)
[2018-11-12 16:58] LABS: BILIRUBIN,URINE NEGATIVE (NEGATIVE); GLUCOSE, URINE (UA) NEGATIVE (NEGATIVE); KETONES,URINE (UA) TRACE mg/dL (NEGATIVE); LEUKOCYTE ESTERASE, URINE NEGATIVE (NEGATIVE); NITRITE,URINE NEGATIVE (NEGATIVE); OCCULT BLOOD,URINE NEGATIVE (NEGATIVE); PH,URINE 5.5 PH (5.0-7.5); PROTEIN,URINE NEGATIVE (NEGATIVE); UROBILINOGEN,URINE 0.2 (NORMAL) E.U./dL (NORMAL)
[2018-11-12 17:08] LABS: AMPHETAMINE SCREEN,URINE NEGATIVE (NEGATIVE); BENZODIAZEPINES SCREEN, URINE POSITIVE (NEGATIVE); CLARITY,URINE CLEAR (CLEAR); COCAINE SCREEN URINE NEGATIVE (NEGATIVE); METHADONE SCREEN, URINE NEGATIVE (NEGATIVE); METHAMPHETAMINES SCREEN, URINE NEGATIVE (NEGATIVE); OPIATE SCREEN, URINE NEGATIVE (NEGATIVE); OXYCODONE SCREEN, URINE NEGATIVE (NEGATIVE); PROPOXYPHENE SCREEN, URINE NEGATIVE (NEGATIVE); TRICYCLIC ANTIDEPRESSANT,URINE NEGATIVE (NEGATIVE)
[2018-11-12] MEDS ORDERED: IPRATROPIUM/ALBUTEROL 3 ML NEB INH STA (19:45)
[2018-11-12] MEDS ORDERED: PRAZOSIN 1 MG CAPSULE PO STA (19:46)
[2018-11-12] MEDS ORDERED: DIVALPROEX ER 250 MG TABLET PO STA (19:46)
[2018-11-12] MEDS ORDERED: MIRTAZAPINE 15 MG TABLET PO STA (19:46)
[2018-11-13] MEDS ORDERED: MIRTAZAPINE 15 MG TABLET PO STA (00:34)
[2018-11-13] MEDS ORDERED: traZODone 50 MG TABLET PO STA (00:35)
[2018-11-13 02:59] VITALS: BP 108/64
== END 2018-11-13 03:00 ==
LOC: EDUNIT# → ED 14:43
DX: F32.9 Major depressive disorder, single episode, unspecified (principal); R45.851 Suicidal ideations; E11.9 Type 2 diabetes mellitus without complications; Z79.84 Long term (current) use of oral hypoglycemic drugs; J44.9 Chronic obstructive pulmonary disease, unspecified; F17.200 Nicotine dependence, unspecified, uncomplicated
CPT/HCPCS: 36415; 80053; 80164; 81003; 83690; 85025; 93005; 94640; 99284; A9270; J8499; 80306; 80307; 80320; 80329; 81001; 87086

== ENCOUNTER 2018-11-19 15:03 | Outpatient (CLI) | payer MEDICARE, MEDICAID | END 2018-11-19 15:04 | disposition critical access hospital (66) | LOC: EMS 15:03 | PROVIDERS: ATTEND Surgery | DX: R20.0 Anesthesia of skin (principal); R25.2 Cramp and spasm; R07.89 Other chest pain; R47.81 Slurred speech | CPT/HCPCS: A0425; A0429 ==

== ENCOUNTER 2018-11-19 15:25 | Emergency (ER) | payer MEDICARE, MEDICAID ==
--- NOTE | 2018-11-19 15:33 | ED Physician Documentation ---
PD HPI FOCAL NEURO - Stated complaint Stated Complaint: CP - History obtained from History obtained from: Patient, EMS - History of Present Illness Timing - onset: Today (At 2:45pm She developed left arm and leg numbness which is improved slightly but certainly not resolved in contrast to the department mgr report. She had a high blood sugar prior to arrival. She denies any headache with this. She has a remote history of TIA. She is not anticoagulated. She does not currently take aspirin.) Review of Systems Ten Systems: 10 systems reviewed and negative Constitutional: reports: Reviewed and negative Throat: reports: Reviewed and negative Cardiac: denies: Chest pain / pressure Respiratory: reports: Wheezing. denies: Dyspnea, Cough GI: denies: Abdominal Pain PD PAST MEDICAL HISTORY - Past Medical History Cardiovascular: Angina, Other Respiratory: COPD, Pneumonia Neuro: Seizure disorder Endocrine/Autoimmune: Type 2 diabetes GI: GERD, Hiatal hernia PHARMACOLOGIST: None : None HEENT: None Psych: Depression, Bipolar disorder, Schizophrenia, Post traumatic stress disorder Musculoskeletal: None Derm: None - Past Surgical History Past Surgical History: Yes General: Bowel surgery Ortho: Other /PHARMACOLOGIST: 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 HEENT: Cataracts - Present Medications Home Medications: Ambulatory Orders Medication Instructions Recorded Confirmed RX: metFORMIN [Glucophage] 500 mg ORAL TID 09/06/18 10/28/18 Mirtazapine [Remeron] 15 mg ORAL QPM #5 tablet 09/29/18 10/28/18 OLANZapine [Olanzapine] 10 mg ORAL BID #10 tablet 09/29/18 10/28/18 RX: Divalproex ER [Depakote ER] 750 mg PO BID #30 tablet 09/29/18 10/28/18 RX: Prazosin HCl 1 mg PO QPM #5 capsule 09/29/18 10/28/18 clonazePAM [Clonazepam] 1 mg ORAL BID #10 tablet 09/29/18 10/28/18 Ondansetron Odt [Zofran] 4 mg TL Q6H PRN #10 tablet 10/15/18 10/28/18 RX: Albuterol Sulf [Ventolin Hfa 1 - 2 puffs INH Q4HR PRN #1 inhaler 10/15/18 10/28/18 Inhaler] Promethazine [Phenergan] 25 mg PO Q6H PRN #10 tab 10/22/18 10/28/18 RX: Baclofen 5 mg PO BID 10/28/18 10/28/18 Benzonatate [Tessalon Perle] 100 mg PO TID PRN #25 capsule 11/11/18 Dexamethasone [Decadron] 4 mg PO DAILY #5 tablet 11/11/18 RX: Albuterol 2.5 mg INH Q4H PRN #30 neb 11/11/18 RX: Albuterol Sulf [Ventolin Hfa 2 - 3 puffs INH Q4HR PRN #1 inhaler 11/11/18 Inhaler] - Allergies Allergies/Adverse Reactions: Allergies Allergy/AdvReac Type Severity Reaction Status Date / Time azithromycin Allergy Severe Hives Verified 11/19/18 15:49 haloperidol Allergy Severe Anaphylaxis Verified 11/19/18 15:49 Penicillins Allergy Severe Anaphylaxis Verified 11/19/18 15:49 amoxicillin [Amoxicillin] Allergy Intermediate Rash Verified 11/19/18 15:49 grapefruit Allergy Intermediate Rash Verified 11/19/18 15:49 iodine Allergy Intermediate Rash Verified 11/19/18 15:49 Sulfa (Sulfonamide Allergy Intermediate Rash Verified 11/19/18 15:49 Antibiotics) haloperidol lactate * AdvReac Rash Verified 11/19/18 15:49 [From Haldol] - Social History Does the pt smoke?: Yes Smoking Status: Current every day smoker Does the pt drink ETOH?: No Does the pt have substance abuse?: No - Family History Family history: reports: Non contributory - Immunizations Immunizations are current?: No Immunizations: TDAP >10years/unknown - POLST Patient has POLST: No PD ED PE NORMAL - Vitals Vital signs reviewed: Yes - General General: Alert and oriented X 3, No acute distress - HEENT HEENT: PERRL, EOMI - Neck Neck: Supple, no meningeal sign, No bony TTP - Cardiac Cardiac: RRR, No murmur - Respiratory Respiratory: No respiratory distress, Other (exp wheezing, loud) - Abdomen Abdomen: Soft, Non tender - Back Back: No CVA TTP, No spinal TTP - Derm Derm: Normal color, Warm and dry - Extremities Extremities: No edema, No calf tenderness / cord - Neuro Neuro: Alert and oriented X 3, Normal speech NIHSS - Time Time: 13:30 - Level of Consciousness Level of consciousness: (0) Alert, Keenly responsive LOC Questions: (0) Answers both Q's correct LOC Commands: (0) Performs both correctly - Gaze Best Gaze: (0) Normal - Visual Visual: (0) No loss - Facial Palsy Facial Palsy: (0) Normal, symmetrical movement - Motor Arms (both separate) Motor Arm (right): (0) No drift Motor Arm (left): (0) No drift - Motor Legs (both separate) Motor Leg (right): (0) No drift Motor Leg (left): (2) Some effort against gravity - Limb Ataxia Limb Ataxia: (0) Absent - Sensory Sensory: (1) [id number] loss (Left face/arm/leg, leg is the densest but not insensate) - Best Language Best Language: (0) No aphasia - Dysarthria Dysarthria: (0) Normal - Extinction and Inattention (formally neg Extinction and inattention: (0) No abnormality - Total Score/Results Total Score/Result: 3 Results - Vitals Vitals: Vital Signs - 24 hr 11/19/18 11/19/18 11/19/18 15:44 16:04 16:11 Temperature 37.1 C Heart Rate 99 94 94 Respiratory 20 18 18 Rate Blood Pressure 135/81 H 123/99 H 132/80 H O2 Saturation 95 100 99 11/19/18 11/19/18 11/19/18 16:25 16:39 16:54 Temperature Heart Rate 93 88 85 Respiratory 18 18 18 Rate Blood Pressure 124/79 142/69 H 131/88 H O2 Saturation 96 96 96 11/19/18 17:09 Temperature Heart Rate 84 Respiratory 18 Rate Blood Pressure 110/82 H O2 Saturation 96 Oxygen O2 Source [] Room air O2 Source [] Room air O2 Source Room air - EKG (time done) 1551 Rate: Rate (enter#) (94) Rhythm: NSR, LAE [place]: LAD Intervals: Normal [place] QRS: Normal Ischemia: Normal ST segments Computer interpretation: Agree with computer - Labs Labs: Laboratory Tests 11/19/18 11/19/18 11/19/18 16:07 16:07 16:07 WBC 25.6 H RBC 4.66 Hgb 12.8 Hct 39.5 MCV 84.7 MCH 27.4 MCHC 32.4 RDW 16.1 H Plt Count 380 MPV 9.0 Neut # (Auto) 15.1 H Lymph # (Auto) 6.9 H [place] # (Auto) 3.3 H Eos # (Auto) 0.0 Baso # (Auto) 0.2 H Absolute Nucleated RBC 0.02 Nucleated RBC % 0.1 Manual Slide Review Indicated Platelet Estimate NORMAL (130-450,000) Platelet Morphology NORMAL APPEARANCE RBC Morph Micro Appear NORMAL APPEARANCE PT 11.8 INR 1.0 Sodium 137 Potassium 3.3 L Chloride 102 Carbon Dioxide 24 Anion Gap 11.0 BUN 18 Creatinine 0.7 Estimated GFR (MDRD) 87 L Glucose 91 Calcium 8.9 Total Bilirubin 0.5 AST 21 ALT 20 Alkaline Phosphatase 62 Total Protein 7.2 Albumin 3.7 Globulin 3.5 Albumin/Globulin Ratio 1.1 Lipase 18 L Last Dose Date Last Dose Time Valproic Acid 11/19/18 16:07 WBC RBC Hgb Hct MCV MCH MCHC RDW Plt Count MPV Neut # (Auto) Lymph # (Auto) [place] # (Auto) Eos # (Auto) Baso # (Auto) Absolute Nucleated RBC Nucleated RBC % Manual Slide Review Platelet Estimate Platelet Morphology RBC Morph Micro Appear PT INR Sodium Potassium Chloride Carbon Dioxide Anion Gap BUN Creatinine Estimated GFR (MDRD) Glucose Calcium Total Bilirubin AST ALT Alkaline Phosphatase Total Protein Albumin Globulin Albumin/Globulin Ratio Lipase Last Dose Date UNKNOWN Last Dose Time UNKNOWN Valproic Acid 26.4 - Rads (name of study) CT head w/o Radiology: Discussed with rads (reviewed with Dr Kelly, no ICH) PD MEDICAL DECISION MAKING - ED course ED course: This is a 53-year-old woman with extensive history of psychiatric disease but also history of TIA and multiple vascular risk factors who presents with about an hours worth of left-sided numbness and weakness in the left leg. She is left-handed. No aphasia is noted. Case was discussed on arrival with the stroke neurologist at [facility] who r ecommended giving TPA. Risks and benefits were discussed with the patient and she consented. She has no exclusion criteria. Bolus given at 4:09 PM. Accepted to [facility] by Dr. Doug Strickland at 4:22 PM and cobras were completed. - Critical Care Time(min): 45 Time Includes: Direct patient care, Review records, Reassess patient, Document care, Coordinate care, Medical consult Procedures included in critical care time: Peripheral IV Procedures excluded from critical care time: EKG Departure - Departure Disposition: 02 Transfer Acute Care Hosp Clinical Impression: Cerebrovascular accident (CVA) Condition: Critical Discharge Date/Time: 11/19/18 17:39
[2018-11-19] MEDS ORDERED: ALTEPLASE 100 MG VIAL IVP STA (16:00)
[2018-11-19] MEDS ORDERED: ALTEPLASE IV ONE (16:10)
[2018-11-19] MEDS ORDERED: WATER FOR INJECTION STERILE IV ONE (16:10)
[2018-11-19] MEDS ORDERED: LORazepam 2 MG/ML VIAL IVP STA (16:17)
[2018-11-19] MEDS ORDERED: ONDANSETRON 4 MG/2 ML VIAL IVP STA (16:17)
[2018-11-19 16:18] LABS: BASOPHILS # (AUTO) 0.2 10^3/uL (0.0-0.1); EOSINOPHILS % (AUTO) 0.1 %; HGB - HEMOGLOBIN 12.8 g/dL (12.0-16.0); LYMPHOCYTES # (AUTO) 6.9 10^3/uL (1.5-3.5); LYMPHOCYTES % (AUTO) 26.8 %; MEAN CORPUSCULAR HEMOGLOBIN 27.4 pg (27.0-31.0); MEAN CORPUSCULAR HGB CONC 32.4 g/dL (32.0-36.0); MEAN CORPUSCULAR VOLUME 84.7 fL (81.0-99.0); MONOCYTES # (AUTO) 3.3 10^3/uL (0.0-1.0); MONOCYTES % (AUTO) 12.9 %; NEUTROPHILS # (AUTO) 15.1 10^3/uL (1.5-6.6); NEUTROPHILS % (AUTO) 59.2 %; PLT - PLATELET COUNT 380 10^3/uL (130-450); RED BLOOD COUNT 4.66 10^6/uL (4.20-5.40); RED CELL DISTRIBUTION WIDTH 16.1 % (12.0-15.0); WHITE BLOOD COUNT 25.6 x10^3/uL (4.8-10.8)
--- NOTE | 2018-11-19 16:19 | CT Report ---
Reason: L sided numbness Procedure Date: 11/19/2018 Accession Number: [id number] / [id number] Procedure: CT - ANGIO HEAD W CPT Code: FULL RESULT: EXAM: CT ANGIOGRAM HEAD AND NECK. CT SCAN HEAD WITHOUT AND WITH CONTRAST. EXAM DATE: 11/19/2018 03:44 PM. CLINICAL HISTORY: Left side numbness. COMPARISON: Prior CT study head 11/23/2017. TECHNIQUE: Routine axial helical CTA imaging was performed from the aortic arch through the [place] of [place]. Routine axial CT imaging of the head was performed prior to and following contrast administration. Reconstructions: Routine multiplanar 3D MIP reconstructions. IV contrast: ISOVUE 300 80mL. NASCET Criteria are used for stenosis measurements. In accordance with CT protocol optimization, one or more of the following dose reduction techniques were utilized for this exam: automated exposure control, adjustment of mA and/or KV based on patient size, or use of iterative reconstructive technique. Findings: Relevant images are indicated (image number, series number). Unenhanced CT head: There is no hemorrhage, mass or midline shift. Mild brain atrophy, mild/moderate compensatory ventricular enlargement present. Basal cisterns patent. Orbital contents negative. Paranasal sinuses, mastoid air cells are clear. Skull intact, no suspicious bony lesions. Minimal calcific atherosclerotic disease. Postcontrast CT head: No abnormal enhancement of the brain/meninges. CT angiogram head: Left ICA: Patent proximally, proximal cavernous segment however the clinoid segment markedly tapers with a small/tiny vessel concordant with the origin of the dominant artery (69, 6) which continues to the terminal segment, with patent MCA, ELIESER distribution. Left A1 segment is diffusely small, patent anterior communicating artery. Right ICA: Patent including MCA, ELIESER distribution. Posterior circulation: Patent distal bilateral vertebral arteries, basilar artery, patent bilateral SUPPLY CHAIN GENERALIST with a small right PCOM. Major draining veins are poorly visualized due to phase of contrast. CT angiogram neck: Aortic arch: Widely patent, normal configuration of the great vessels. Left carotid artery: Widely patent. Right carotid artery: Widely patent. Left vertebral artery: Widely patent. Right vertebral artery: Widely patent. Limited evaluation lung apices demonstrates moderate scattered dense centrilobular emphysema. Soft tissue neck structures are unremarkable, thyroid nonenlarged, airway patent. Mild/moderate multilevel cervical spondylosis. Impressions: Unenhanced CT head: 1. No acute findings. Mild brain atrophy, minimal calcific atherosclerotic disease. Postcontrast CT head: 1. Negative. CT angiogram head: 1. Left ICA: Short segment near occlusion of the clinoid segment ICA, otherwise patent to the terminal segment including MCA/ELIESER. Left A1 segment diffusely. If there are relevant neurological symptoms, consider dedicated MRI brain perfusion to evaluate for asymmetrical perfusion left versus right MCA territories. 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 2. Right ICA: Patent. 3. Posterior circulation: Patent. CT angiogram neck: 1. Widely patent aortic arch, bilateral carotid and vertebral arteries. 2. Soft tissue neck negative. 3. Mild/moderate multilevel cervical spondylosis. Critical results: Findings discussed immediately with Dr. Patterson by phone on 11/19/2018 at 1612 hrs. [facility]IA
--- NOTE | 2018-11-19 16:20 | CT Report ---
Reason: L sided numbness Procedure Date: 11/19/2018 Accession Number: [id number] / [id number] Procedure: CT - ANGIO NECK W/WO CPT Code: FULL RESULT: EXAM: CT ANGIOGRAM HEAD AND NECK. CT SCAN HEAD WITHOUT AND WITH CONTRAST. EXAM DATE: 11/19/2018 03:44 PM. CLINICAL HISTORY: Left side numbness. COMPARISON: Prior CT study head 11/23/2017. TECHNIQUE: Routine axial helical CTA imaging was performed from the aortic arch through the [place] of [place]. Routine axial CT imaging of the head was performed prior to and following contrast administration. Reconstructions: Routine multiplanar 3D MIP reconstructions. IV contrast: ISOVUE 300 80mL. NASCET Criteria are used for stenosis measurements. In accordance with CT protocol optimization, one or more of the following dose reduction techniques were utilized for this exam: automated exposure control, adjustment of mA and/or KV based on patient size, or use of iterative reconstructive technique. Findings: Relevant images are indicated (image number, series number). Unenhanced CT head: There is no hemorrhage, mass or midline shift. Mild brain atrophy, mild/moderate compensatory ventricular enlargement present. Basal cisterns patent. Orbital contents negative. Paranasal sinuses, mastoid air cells are clear. Skull intact, no suspicious bony lesions. Minimal calcific atherosclerotic disease. Postcontrast CT head: No abnormal enhancement of the brain/meninges. CT angiogram head: Left ICA: Patent proximally, proximal cavernous segment however the clinoid segment markedly tapers with a small/tiny vessel concordant with the origin of the dominant artery (69, 6) which continues to the terminal segment, with patent MCA, ELIESER distribution. Left A1 segment is diffusely small, patent anterior communicating artery. Right ICA: Patent including MCA, ELIESER distribution. Posterior circulation: Patent distal bilateral vertebral arteries, basilar artery, patent bilateral OPERATIONS AND MAINTENANCE SUPERVISOR with a small right PCOM. Major draining veins are poorly visualized due to phase of contrast. CT angiogram neck: Aortic arch: Widely patent, normal configuration of the great vessels. Left carotid artery: Widely patent. Right carotid artery: Widely patent. Left vertebral artery: Widely patent. Right vertebral artery: Widely patent. Limited evaluation lung apices demonstrates moderate scattered dense centrilobular emphysema. Soft tissue neck structures are unremarkable, thyroid nonenlarged, airway patent. Mild/moderate multilevel cervical spondylosis. Impressions: Unenhanced CT head: 1. No acute findings. Mild brain atrophy, minimal calcific atherosclerotic disease. Postcontrast CT head: 1. Negative. CT angiogram head: 1. Left ICA: Short segment near occlusion of the clinoid segment ICA, otherwise patent to the terminal segment including MCA/ELIESER. Left A1 segment diffusely. If there are relevant neurological symptoms, consider dedicated MRI brain perfusion to evaluate for asymmetrical perfusion left versus right MCA territories. 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 2. Right ICA: Patent. 3. Posterior circulation: Patent. CT angiogram neck: 1. Widely patent aortic arch, bilateral carotid and vertebral arteries. 2. Soft tissue neck negative. 3. Mild/moderate multilevel cervical spondylosis. Critical results: Findings discussed immediately with Dr. Patterson by phone on 11/19/2018 at 1612 hrs. [facility]IA
[2018-11-19 16:33] LABS: ALBUMIN 3.7 g/dL (3.2-5.5); ALBUMIN/GLOBULIN RATIO 1.1 (1.0-2.2); BILIRUBIN,TOTAL 0.5 mg/dL (0.2-1.0); CALCIUM 8.9 mg/dL (8.5-10.3); CREATININE 0.7 mg/dL (0.4-1.0); TOTAL PROTEIN 7.2 g/dL (6.7-8.2)
[2018-11-19 16:37] LABS: VALPROIC ACID (DEPAKOTE) 26.4 ug/mL
[2018-11-19 16:38] LABS: PT - PROTHROMBIN TIME 11.8 secs (9.9-12.6)
[2018-11-19] MEDS ORDERED: IOPAMIDOL-300 100 ML VIAL ONE (16:41)
[2018-11-19 17:07] LABS: PLATELET ESTIMATE, MANUAL NORMAL (130-450,000) (NORMAL); PLATELET MORPHOLOGY NORMAL APPEARANCE (NORMAL); RBC MORPHOLOGY (MULTIPLE) NORMAL APPEARANCE (NORMAL)
[2018-11-19 17:10] VITALS: BP 110/82
[2018-11-19] MEDS ORDERED: ACETAMINOPHEN 325 MG TABLET PO STA (17:15)
[2018-11-19] MEDS ORDERED: IOPAMIDOL-300 100 ML VIAL IVP ONE (19:48)
== END 2018-11-19 17:39 | disposition short-term general hospital (02) ==
LOC: EDUNIT# → ED 15:25
DX: I63.9 Cerebral infarction, unspecified (principal); R29.703 NIHSS score 3; J44.9 Chronic obstructive pulmonary disease, unspecified; E11.9 Type 2 diabetes mellitus without complications; Z79.84 Long term (current) use of oral hypoglycemic drugs; F20.9 Schizophrenia, unspecified; F31.9 Bipolar disorder, unspecified; F17.200 Nicotine dependence, unspecified, uncomplicated
CPT/HCPCS: 36415; 37195; 70496; 70498; 80053; 80164; 83690; 85025; 85610; 93005; 96374; 96375; 99291; A9270; J2060; J2997; Q9967; 99285

== ENCOUNTER 2018-11-22 20:10 | Outpatient (CLI) | payer MEDICARE, MEDICAID | END 2018-11-22 20:11 | disposition critical access hospital (66) | LOC: EMS 20:10 | PROVIDERS: ATTEND Surgery | DX: R07.89 Other chest pain (principal); M79.602 Pain in left arm; R51 Headache; R23.2 Flushing | CPT/HCPCS: A0425; A0427 ==

== ENCOUNTER 2018-11-22 20:30 | Emergency (ER) | payer MEDICARE, MEDICAID ==
[2018-11-22 22:05] LABS: BASOPHILS % (AUTO) 0.2 %; HGB - HEMOGLOBIN 12.1 g/dL (12.0-16.0); MEAN CORPUSCULAR HEMOGLOBIN 28.1 pg (27.0-31.0); MEAN PLATELET VOLUME 8.8 fL (7.9-10.8); MONOCYTES % (AUTO) 10.1 %; NEUTROPHILS % (AUTO) 71.7 %; PLT - PLATELET COUNT 334 10^3/uL (130-450); RED BLOOD COUNT 4.31 10^6/uL (4.20-5.40); RED CELL DISTRIBUTION WIDTH 16.4 % (12.0-15.0)
[2018-11-22 22:08] LABS: ABNORMAL LYMPHS % (MANUAL) 0 %
[2018-11-22 22:24] LABS: ALBUMIN 3.8 g/dL (3.2-5.5); ALBUMIN/GLOBULIN RATIO 1.2 (1.0-2.2); BILIRUBIN,TOTAL 0.4 mg/dL (0.2-1.0); CREATININE 0.7 mg/dL (0.4-1.0); TOTAL PROTEIN 6.9 g/dL (6.7-8.2)
[2018-11-22 22:28] LABS: BAND NEUTROPHILS % (MANUAL) 2 %; LYMPHOCYTES # (MANUAL) 4.4 10^3/uL (1.5-3.5); LYMPHOCYTES % (MANUAL) 18 %; MONOCYTES # (MANUAL) 2.2 10^3/uL (0.0-1.0); NEUTROPHILS # (MANUAL) 15.4 10^3/uL (1.5-6.6); NEUTROPHILS % (MANUAL) 68 %
[2018-11-22 22:29] LABS: DIFFERENTIAL COMMENT MANUAL DIFFERENTIAL; PLATELET ESTIMATE, MANUAL NORMAL (130-450,000) (NORMAL); PLATELET MORPHOLOGY NORMAL APPEARANCE (NORMAL); RBC MORPHOLOGY (MULTIPLE) NORMAL APPEARANCE (NORMAL)
--- NOTE | 2018-11-22 22:29 | ED Physician Documentation ---
PD HPI CHEST PAIN - Stated complaint Stated Complaint: CHEST TIGHT - Chief complaint Chief Complaint: Cardiac - History obtained from History obtained from: Patient, EMS - History of Present Illness Timing - onset: Today Timing - onset during: Rest Timing - duration: Minutes Timing - details: Abrupt onset, Still present Pain level max: 9 Pain level now: 7 Quality: Tightness, Sharp Location: Left chest Radiation: Left upper extremity Improved by: Nothing Worsened by: No: Exertion, Inspiration, Eating, Movement, Palpation Associated symptoms: Feeling faint / dizzy, Other (headache and excessive urination). No: Shortness of air Similar symptoms before: No diagnosis Recently seen: Admitted - Additional information Additional information: 53-year-old diabetic schizophrenic female well-known to the emergency department has had a CVA 3 days ago for which she received TPA and was discharged from [facility] yesterday. She had resolution of her symptoms of left-sided weakness and numbness. This evening she has developed a headache which she describes as a flushing feeling inside of her head and following that she developed some pain in her left chest radiating into her left arm. She is brought to the hospital by ambulance received aspirin and nitro in route without improvement. She also indicates that she has had some diarrhea over the past 2 days and that she has been urinating a lot enough that she has gone through a lot of depends. Review of Systems Constitutional: denies: Fever, Chills, Myalgias Eyes: denies: Decreased vision Ears: denies: Ear pain Nose: denies: Rhinorrhea / runny nose, Congestion Throat: denies: Sore throat Cardiac: reports: Chest pain / pressure. denies: Palpitations, Pedal edema, Calf pain Respiratory: reports: Wheezing. denies: Dyspnea, Cough GI: reports: Diarrhea. denies: Abdominal Pain, Nausea, Vomiting : reports: Frequency. denies: Dysuria Skin: denies: Rash Musculoskeletal: reports: Extremity pain. 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 : None HEENT: None Psych: Depression, Bipolar disorder, Schizophrenia, Post traumatic stress disorder Musculoskeletal: None Derm: None - Past Surgical History Past Surgical History: Yes General: Bowel surgery Ortho: Other /TEACHER DRAMATICS: 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 HEENT: Cataracts - Present Medications Home Medications: Ambulatory Orders Medication Instructions Recorded Confirmed RX: metFORMIN [Glucophage] 500 mg ORAL TID 09/06/18 11/22/18 Mirtazapine [Remeron] 15 mg ORAL QPM #5 tablet 09/29/18 11/22/18 OLANZapine [Olanzapine] 10 mg ORAL BID #10 tablet 09/29/18 11/22/18 RX: Divalproex ER [Depakote ER] 750 mg PO BID #30 tablet 09/29/18 11/22/18 RX: Prazosin HCl 1 mg PO QPM #5 capsule 09/29/18 11/22/18 clonazePAM [Clonazepam] 1 mg ORAL BID #10 tablet 09/29/18 11/22/18 Ondansetron Odt [Zofran] 4 mg TL Q6H PRN #10 tablet 10/15/18 11/22/18 RX: Albuterol Sulf [Ventolin Hfa 1 - 2 puffs INH Q4HR PRN #1 inhaler 10/15/18 11/22/18 Inhaler] Promethazine [Phenergan] 25 mg PO Q6H PRN #10 tab 10/22/18 11/22/18 RX: Baclofen 5 mg PO BID 10/28/18 11/22/18 Benzonatate [Tessalon Perle] 100 mg PO TID PRN #25 capsule 11/11/18 11/22/18 Dexamethasone [Decadron] 4 mg PO DAILY #5 tablet 11/11/18 11/22/18 RX: Albuterol 2.5 mg INH Q4H PRN #30 neb 11/11/18 11/22/18 RX: Albuterol Sulf [Ventolin Hfa 2 - 3 puffs INH Q4HR PRN #1 inhaler 11/11/18 11/22/18 Inhaler] - Allergies Allergies/Adverse Reactions: Allergies Allergy/AdvReac Type Severity Reaction Status Date / Time azithromycin Allergy Severe Hives Verified 11/22/18 21:57 haloperidol Allergy Severe Anaphylaxis Verified 11/22/18 21:57 Penicillins Allergy Severe Anaphylaxis Verified 11/22/18 21:57 amoxicillin [Amoxicillin] Allergy Intermediate Rash Verified 11/22/18 21:57 grapefruit Allergy Intermediate Rash Verified 11/22/18 21:57 iodine Allergy Intermediate Rash Verified 11/22/18 21:57 Sulfa (Sulfonamide Allergy Intermediate Rash Verified 11/22/18 21:57 Antibiotics) haloperidol lactate * AdvReac Rash Verified 11/22/18 21:57 [From Haldol] - Social History Does the pt smoke?: Yes Smoking Status: Current every day smoker Does the pt drink ETOH?: No Does the pt have substance abuse?: No - Immunizations Immunizations are current?: No Immunizations: TDAP >10years/unknown - POLST Patient has POLST: No PD ED PE NORMAL - Vitals Vital signs reviewed: Yes (tachy) - General General: No acute distress, Well developed/nourished - HEENT HEENT: Atraumatic, PERRL, EOMI, Ears normal, Other (dry mucous membranes ) - Neck Neck: Supple, no meningeal sign, No bony TTP - Cardiac Cardiac: No murmur, Other (tachy to 110) - Respiratory Respiratory: No respiratory distress, Clear bilaterally - Abdomen Abdomen: Soft, Non tender - Back Back: No CVA TTP, No spinal TTP - Derm Derm: Normal color, Warm and dry, No rash - Extremities Extremities: No deformity, No edema - Neuro Neuro: Alert and oriented X 3, lepidopterist 2-12 intact, No motor deficit, No sensory deficit, Normal speech Eye Opening: Spontaneous Motor: Obeys Commands Verbal: Oriented GCS Score: 15 - Psych Psych: Normal mood, Normal affect Results - Vitals Vitals: Vital Signs - 24 hr 11/22/18 11/22/18 11/23/18 20:31 21:52 00:44 Temperature 36.4 C L Heart Rate 101 H 79 77 Respiratory 15 16 16 Rate Blood Pressure 112/65 120/69 101/78 O2 Saturation 96 98 95 Oxygen O2 Source [] Room air O2 Source [] Room air O2 Source Room air - EKG (time done) 2045 Rate: Rate (enter#) (101) Rhythm: Sinus tachycardia [place]: LAD Intervals: Prolonged QT QRS: Poor R wave progression Computer interpretation: Agree with computer - Labs Labs: Laboratory Tests 11/22/18 11/22/18 11/22/18 22:00 22:00 22:00 WBC 22.0 H RBC 4.31 Hgb 12.1 Hct 36.7 L MCV 85.0 MCH 28.1 MCHC 33.0 RDW 16.4 H Plt Count 334 MPV 8.8 Neut # (Auto) Not Reportable Lymph # (Auto) Not Reportable [place] # (Auto) Not Reportable Eos # (Auto) Not Reportable Baso # (Auto) Not Reportable Absolute Nucleated RBC Not Reportable Total Counted 100 Band Neuts % (Manual) 2 Reactive Lymphs % (Man) 2 Abnorm Lymph % (Manual) 0 Nucleated RBC % Not Reportable Neutrophils # (Manual) 15.4 H Lymphocytes # (Manual) 4.4 H Monocytes # (Manual) 2.2 H Eosinophils # (Manual) 0.0 Basophils # (Manual) 0.0 Differential Comment MANUAL DIFFERENTIAL Platelet Estimate NORMAL (130-450,000) Platelet Morphology NORMAL APPEARANCE RBC Morph Micro Appear NORMAL APPEARANCE Sodium 137 Potassium 3.8 Chloride 104 Carbon Dioxide 23 Anion Gap 10.0 BUN 14 Creatinine 0.7 Estimated GFR (MDRD) 87 L Glucose 135 H Calcium 9.0 Total Bilirubin 0.4 AST 19 ALT 17 Alkaline Phosphatase 57 Troponin I < 0.04 Total Protein 6.9 Albumin 3.8 Globulin 3.1 Albumin/Globulin Ratio 1.2 Lipase 20 L Urine Color Urine Clarity Urine pH Ur Specific [place] Urine Protein Urine Glucose (UA) Urine Ketones Urine Occult Blood Urine Nitrite Urine Bilirubin Urine Urobilinogen Ur Leukocyte Esterase Ur Microscopic Review Urine Culture Comments 11/23/18 01:38 WBC RBC Hgb Hct MCV MCH MCHC RDW Plt Count MPV Neut # (Auto) Lymph # (Auto) [place] # (Auto) Eos # (Auto) Baso # (Auto) Absolute Nucleated RBC Total Counted Band Neuts % (Manual) Reactive Lymphs % (Man) Abnorm Lymph % (Manual) Nucleated RBC % Neutrophils # (Manual) Lymphocytes # (Manual) Monocytes # (Manual) Eosinophils # (Manual) Basophils # (Manual) Differential Comment Platelet Estimate Platelet Morphology RBC Morph Micro Appear Sodium Potassium Chloride Carbon Dioxide Anion Gap BUN Creatinine Estimated GFR (MDRD) Glucose Calcium Total Bilirubin AST ALT Alkaline Phosphatase Troponin I Total Protein Albumin Globulin Albumin/Globulin Ratio Lipase Urine Color YELLOW Urine Clarity CLEAR Urine pH 6.0 Ur Specific [place] 1.015 Urine Protein NEGATIVE Urine Glucose (UA) NEGATIVE Urine Ketones NEGATIVE Urine Occult Blood NEGATIVE Urine Nitrite NEGATIVE Urine Bilirubin NEGATIVE Urine Urobilinogen 0.2 (NORMAL) Ur Leukocyte Esterase NEGATIVE Ur Microscopic Review NOT INDICATED Urine Culture Comments NOT INDICATED - Rads (name of study) CT head without Radiology: Prelim report reviewed (Impression: Normal head CT.), EMP read indepedently, See rad report chest one view Radiology: Prelim report reviewed (Impression negative single view chest.), EMP read indepedently, See rad report Procedures - IVC sono (time) 2238 Bedside IVC sono: IVC measures (cm) (0.78), IVC collapsed c insp (cm) (complete), Significant dehydration (est 2 liter deficit) PD MEDICAL DECISION MAKING - ED course Complexity details: reviewed old records, reviewed results, re-evaluated patient, considered differential, d/w patient ED course: 53-year-old female with acute onset of headache 3 days after receiving TPA and chest pain is found to be dehydrated on arrival to the emergency department and she does have diabetes. She recalls urinating excessively and she has had some diarrhea as well. She is hydrated here in the emergency department her troponin is initially negative. Departure - Departure Disposition: 01 Home, Self Care Clinical Impression: Dehydration Condition: Stable Instructions: ED Dehydration Follow-Up: Patricia Hunter DNP [Primary Care Provider] - Discharge Date/Time: 11/23/18 02:37
[2018-11-22] MEDS ORDERED: SODIUM CHLORIDE 0.9% 1,000 ML IV ONE (22:40)
[2018-11-22] MEDS ORDERED: ACETAMINOPHEN 1,000 MG/100 ML 100 ML IV STA (23:29)
--- NOTE | 2018-11-22 23:35 | CT Report ---
Reason: s/p CVA and tpa has headache today Procedure Date: 11/22/2018 Accession Number: [id number] / [id number] Procedure: CT - HEAD WO CPT Code: FULL RESULT: EXAM: CT HEAD EXAM DATE: 11/22/2018 10:57 PM. CLINICAL HISTORY: Status post CVA and TPA, has headache today. COMPARISON: Brain MRI from 11/19/[address] from 11/20/2018 obtained at [facility]. TECHNIQUE: Multiaxial CT images were obtained from the foramen magnum to the vertex. Reformats: Sagittal and coronal. IV contrast: None. In accordance with CT protocol optimization, one or more of the following dose reduction techniques were utilized for this exam: automated exposure control, adjustment of mA and/or KV based on patient size, or use of iterative reconstructive technique. FINDINGS: Parenchyma: No intraparenchymal hemorrhage. No evidence of mass, midline shift, or CT findings of infarction. Lora-white differentiation is distinct. Extraaxial Spaces: Normal for age. No subdural or epidural collections identified. Ventricles: Normal in size and position. Sinuses and Orbits: Postsurgical changes from cataract extractions are noted in the globes. The paranasal and mastoid sinuses are not opacified. Bones: No evidence of fracture or calvarial defect. Other: Small foci of fat are again noted along the superior sagittal sinus, likely of no clinical significance. IMPRESSION: Normal head CT. RADIA
[2018-11-23] MEDS ORDERED: SODIUM CHLORIDE 0.9% 1,000 ML IV ONE (00:39)
[2018-11-23 00:46] VITALS: BP 101/78
[2018-11-23 01:45] LABS: BILIRUBIN,URINE NEGATIVE (NEGATIVE); GLUCOSE, URINE (UA) NEGATIVE (NEGATIVE); KETONES,URINE (UA) NEGATIVE (NEGATIVE); LEUKOCYTE ESTERASE, URINE NEGATIVE (NEGATIVE); NITRITE,URINE NEGATIVE (NEGATIVE); OCCULT BLOOD,URINE NEGATIVE (NEGATIVE); PROTEIN,URINE NEGATIVE (NEGATIVE); UROBILINOGEN,URINE 0.2 (NORMAL) E.U./dL (NORMAL)
[2018-11-23 01:47] LABS: CLARITY,URINE CLEAR (CLEAR)
--- NOTE | 2018-11-23 02:07 | XRAY Report ---
Reason: chest pain Procedure Date: 11/23/2018 Accession Number: [id number] / [id number] Procedure: XR - Chest 1 View X-Ray CPT Code: 02516 FULL RESULT: EXAM: CHEST RADIOGRAPHY EXAM DATE: 11/23/2018 01:55 AM. CLINICAL HISTORY: Chest pain. COMPARISON: CHEST 2 VIEW 11/11/2018 3:25 PM CHEST 2 VIEW 10/22/2018 8:02 PM. TECHNIQUE: 1 view. FINDINGS: Lungs/Pleura: No focal opacities evident. No pleural effusion. No pneumothorax. Mediastinum: Within exam limitations, the cardiomediastinal contour is normal. Other: None. IMPRESSION: Negative single view chest. RADIA
== END 2018-11-23 02:37 | disposition home or self-care (01) ==
LOC: EDUNIT# → ED 20:30
DX: E86.0 Dehydration (principal); R07.9 Chest pain, unspecified; R19.7 Diarrhea, unspecified; I45.81 Long QT syndrome; Z86.73 Personal history of transient ischemic attack (TIA), and cerebral infarction without residual deficits; E11.9 Type 2 diabetes mellitus without complications; Z79.84 Long term (current) use of oral hypoglycemic drugs; F20.9 Schizophrenia, unspecified; Z87.891 Personal history of nicotine dependence
CPT/HCPCS: 36415; 70450; 71045; 80053; 81003; 83690; 84484; 85025; 93005; 96361; 96365; 99283; 99284; J0131; 81001; 87086

== ENCOUNTER 2018-11-24 17:16 | Outpatient (CLI) | payer MEDICARE, MEDICAID | END 2018-11-24 17:17 | disposition critical access hospital (66) | LOC: EMS 17:16 | PROVIDERS: ATTEND Surgery | DX: R05 Cough (principal); R06.2 Wheezing; R50.9 Fever, unspecified; R19.7 Diarrhea, unspecified | CPT/HCPCS: A0425; A0429 ==

== ENCOUNTER 2018-11-24 17:35 | Emergency (ER) | payer MEDICARE, MEDICAID ==
[2018-11-24] MEDS ORDERED: ALBUTEROL NEB 2.5 MG/3 ML INH STA (17:41)
[2018-11-24] MEDS ORDERED: HYDROcod/ACETAM 5/325 MG TABLET PO STA (17:41)
--- NOTE | 2018-11-24 17:43 | ED Physician Documentation ---
PD HPI DYSPNEA - Stated complaint Stated Complaint: COUGH - History obtained from History obtained from: Patient, EMS - History of Present Illness Timing - onset: Today (53-year-old woman with COPD, diabetes, and psychiatric issues presents with a productive cough of green sputum and fever to 100.5 that started today. She is been in and out of the emergency department a lot lately, so exposed to the flu. 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 HEENT: None Psych: Depression, Bipolar disorder, Schizophrenia, Post traumatic stress disorder Musculoskeletal: None Derm: None - Past Surgical History Past Surgical History: Yes General: Bowel surgery 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: 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: 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 HEENT: Cataracts - Present Medications Home Medications: Ambulatory Orders Medication Instructions Recorded Confirmed metFORMIN [Glucophage] 500 mg ORAL TID 09/06/18 11/22/18 Divalproex ER [Depakote ER] 750 mg PO BID #30 tablet 09/29/18 11/22/18 Mirtazapine [Remeron] 15 mg ORAL QPM #5 tablet 09/29/18 11/22/18 OLANZapine [Olanzapine] 10 mg ORAL BID #10 tablet 09/29/18 11/22/18 Prazosin HCl 1 mg PO QPM #5 capsule 09/29/18 11/22/18 clonazePAM [Clonazepam] 1 mg ORAL BID #10 tablet 09/29/18 11/22/18 Albuterol Sulf [Ventolin Hfa 1 - 2 puffs INH Q4HR PRN #1 inhaler 10/15/18 11/22/18 Inhaler] Ondansetron Odt [Zofran] 4 mg TL Q6H PRN #10 tablet 10/15/18 11/22/18 Promethazine [Phenergan] 25 mg PO Q6H PRN #10 tab 10/22/18 11/22/18 Baclofen 5 mg PO BID 10/28/18 11/22/18 Albuterol 2.5 mg INH Q4H PRN #30 neb 11/11/18 11/22/18 Albuterol Sulf [Ventolin Hfa 2 - 3 puffs INH Q4HR PRN #1 inhaler 11/11/18 11/22/18 Inhaler] Benzonatate [Tessalon Perle] 100 mg PO TID PRN #25 capsule 11/11/18 11/22/18 Dexamethasone [Decadron] 4 mg PO DAILY #5 tablet 11/11/18 11/22/18 Oseltamivir [Tamiflu] 75 mg PO BID #10 capsule 11/24/18 - Allergies Allergies/Adverse Reactions: Allergies Allergy/AdvReac Type Severity Reaction Status Date / Time azithromycin Allergy Severe Hives Verified 11/22/18 21:57 haloperidol Allergy Severe Anaphylaxis Verified 11/22/18 21:57 Penicillins Allergy Severe Anaphylaxis Verified 11/22/18 21:57 amoxicillin [Amoxicillin] Allergy Intermediate Rash Verified 11/22/18 21:57 grapefruit Allergy Intermediate Rash Verified 11/22/18 21:57 iodine Allergy Intermediate Rash Verified 11/22/18 21:57 Sulfa (Sulfonamide Allergy Intermediate Rash Verified 11/22/18 21:57 Antibiotics) haloperidol lactate * AdvReac Rash Verified 11/22/18 21:57 [From Haldol] - Social History Does the pt smoke?: Yes Smoking Status: Current every day smoker Does the pt drink ETOH?: No Does the pt have substance abuse?: No - Immunizations Immunizations are current?: No Immunizations: TDAP >10years/unknown - POLST Patient has POLST: No PD ED PE NORMAL - Vitals Vital signs reviewed: Yes - General General: Alert and oriented X 3, No acute distress - HEENT HEENT: PERRL, EOMI - Cardiac Cardiac: RRR, No murmur - Respiratory Respiratory: No respiratory distress, Other (Tight and wheezy throughout, no focal findings) - Abdomen Abdomen: Non tender - Derm Derm: No rash - Neuro Neuro: Alert and oriented X 3, Normal speech Results - Vitals Vitals: Vital Signs - 24 hr 11/24/18 11/24/18 17:42 17:54 Temperature 37.3 C Heart Rate 109 H 110 H Respiratory 20 18 Rate Blood Pressure 127/78 O2 Saturation 96 Oxygen O2 Source [With Activity] Room air O2 Source [Without Activity] Room air O2 Source Room air - Labs Labs: Laboratory Tests 11/24/18 17:50 Influenza A (Rapid) POSITIVE H Influenza B (Rapid) Negative Departure - Departure Disposition: 01 Home, Self Care Clinical Impression: Influenza A Condition: Good Record reviewed to determine appropriate education?: Yes Instructions: ED Flu, Medication: Tamiflu (Oseltamivir) Prescriptions: Oseltamivir [Tamiflu] 75 mg PO BID #10 capsule Comments: Call your doctor to arrange a follow-up appointment, make the next available appointment. In the interim, return anytime if worse or if new symptoms develop.
[2018-11-24 17:44] VITALS: BP 127/78
[2018-11-24] MEDS ORDERED: OSELTAMIVIR 75 MG CAPSULE PO STA (18:17)
== END 2018-11-24 18:27 | disposition home or self-care (01) ==
LOC: EDUNIT# → ED 17:35
DX: J10.1 Influenza due to other identified influenza virus with other respiratory manifestations (principal); J44.9 Chronic obstructive pulmonary disease, unspecified; F17.200 Nicotine dependence, unspecified, uncomplicated; E11.9 Type 2 diabetes mellitus without complications; Z79.84 Long term (current) use of oral hypoglycemic drugs
CPT/HCPCS: 87275; 87276; 94640; 99283; A9270

== ENCOUNTER 2018-11-26 18:31 | Outpatient (CLI) | payer MEDICARE, MEDICAID | END 2018-11-26 18:32 | disposition critical access hospital (66) | LOC: EMS 18:31 | PROVIDERS: ATTEND Surgery | DX: R05 Cough (principal); R06.02 Shortness of breath; R11.0 Nausea; R23.1 Pallor | CPT/HCPCS: A0425; A0429 ==

== ENCOUNTER 2018-11-26 18:51 | Emergency (ER) | payer MEDICARE, MEDICAID ==
--- NOTE | 2018-11-26 20:39 | ED Physician Documentation ---
PD HPI URI - Stated complaint Stated Complaint: COUGH, RECENT FLU - Chief complaint Chief Complaint: Resp - History obtained from History obtained from: Patient - History of Present Illness Timing - onset: How many days ago (has had cough and wheezing, tested positive for flu, and also being treated with abx for potential pneumonia, presents today with wheezing and dyspnea increased despite MDI use at home.) Timing duration: Days Timing details: Gradual onset, Waxing and waning Associated symptoms: Fever, Chills, Productive cough, Dyspnea. No: Hemoptysis, Bilateral edema Contributing factors: COPD / asthma Similar symptoms before: Has not had sx before Recently seen: Emergency Dept Review of Systems Constitutional: reports: Fever, Chills, Myalgias Nose: reports: Rhinorrhea / runny nose, Congestion Throat: denies: Sore throat Cardiac: denies: Chest pain / pressure Respiratory: reports: Dyspnea, Cough, Wheezing GI: reports: Nausea. denies: Abdominal Pain, Vomiting, Diarrhea Musculoskeletal: denies: Extremity swelling Neurologic: reports: Generalized weakness. 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 PHYSICIAN: 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 HEENT: Cataracts - Present Medications Home Medications: Ambulatory Orders Medication Instructions Recorded Confirmed metFORMIN [Glucophage] 500 mg ORAL TID 09/06/18 11/22/18 Divalproex ER [Depakote ER] 750 mg PO BID #30 tablet 09/29/18 11/22/18 Mirtazapine [Remeron] 15 mg ORAL QPM #5 tablet 09/29/18 11/22/18 OLANZapine [Olanzapine] 10 mg ORAL BID #10 tablet 09/29/18 11/22/18 Prazosin HCl 1 mg PO QPM #5 capsule 09/29/18 11/22/18 clonazePAM [Clonazepam] 1 mg ORAL BID #10 tablet 09/29/18 11/22/18 Albuterol Sulf [Ventolin Hfa 1 - 2 puffs INH Q4HR PRN #1 inhaler 10/15/18 11/22/18 Inhaler] Ondansetron Odt [Zofran] 4 mg TL Q6H PRN #10 tablet 10/15/18 11/22/18 Promethazine [Phenergan] 25 mg PO Q6H PRN #10 tab 10/22/18 11/22/18 Baclofen 5 mg PO BID 10/28/18 11/22/18 Albuterol 2.5 mg INH Q4H PRN #30 neb 11/11/18 11/22/18 Albuterol Sulf [Ventolin Hfa 2 - 3 puffs INH Q4HR PRN #1 inhaler 11/11/18 11/22/18 Inhaler] Benzonatate [Tessalon Perle] 100 mg PO TID PRN #25 capsule 11/11/18 11/22/18 Dexamethasone [Decadron] 4 mg PO DAILY #5 tablet 11/11/18 11/22/18 Oseltamivir [Tamiflu] 75 mg PO BID #10 capsule 11/24/18 Benzonatate [Tessalon Perle] 100 mg PO TID PRN #30 capsule 11/26/18 Dexamethasone [Decadron] 4 mg PO DAILY #5 tablet 11/26/18 - Allergies Allergies/Adverse Reactions: Allergies Allergy/AdvReac Type Severity Reaction Status Date / Time azithromycin Allergy Severe Hives Verified 11/26/18 18:55 haloperidol Allergy Severe Anaphylaxis Verified 11/26/18 18:55 Penicillins Allergy Severe Anaphylaxis Verified 11/26/18 18:55 amoxicillin [Amoxicillin] Allergy Intermediate Rash Verified 11/26/18 18:55 grapefruit Allergy Intermediate Rash Verified 11/26/18 18:55 iodine Allergy Intermediate Rash Verified 11/26/18 18:55 Sulfa (Sulfonamide Allergy Intermediate Rash Verified 11/26/18 18:55 Antibiotics) haloperidol lactate * AdvReac Rash Verified 11/26/18 18:55 [From Haldol] - Social History Does the pt smoke?: Yes Smoking Status: Current every day smoker Does the pt drink ETOH?: No Does the pt have substance abuse?: No - Immunizations Immunizations are current?: No Immunizations: TDAP >10years/unknown - POLST Patient has POLST: No PD ED PE NORMAL - Vitals Vital signs reviewed: Yes - General General: Alert and oriented X 3, No acute distress (having wheezing and some prolonged exp phase, but able to talk in sentences. Has hoarse voice. Repetitive cough. ), Well developed/nourished - HEENT HEENT: Pharynx benign - Neck Neck: Supple, no meningeal sign - Cardiac Cardiac: RRR, No murmur - Respiratory Respiratory: No: Clear bilaterally (diffuse moderate wheezing. Coarse sounds left side. ) - Abdomen Abdomen: Soft, Non tender - Derm Derm: Normal color, Warm and dry - Extremities Extremities: Normal ROM s pain, No edema, No calf tenderness / cord - Neuro Neuro: Alert and oriented X 3, No motor deficit Results - Vitals Vitals: Vital Signs - 24 hr 11/26/18 11/26/18 11/26/18 18:52 21:35 21:57 Temperature 36.5 C Heart Rate 85 81 85 Respiratory 20 18 18 Rate Blood Pressure 113/92 H O2 Saturation 93 11/26/18 23:48 Temperature Heart Rate 98 Respiratory 18 Rate Blood Pressure 129/81 H O2 Saturation 92 Oxygen O2 Source [With Activity] Room air O2 Source [Without Activity] Room air O2 Source Room air - Rads (name of study) chest xray Radiology: Prelim report reviewed (no infiltrates nor PTX.), EMP read contemporaneously, See rad report PD MEDICAL DECISION MAKING - ED course Complexity details: re-evaluated patient (improved wheezing with nebx x 2. Some shakiness. Resting comfortably. ), considered differential, d/w patient Departure - Departure Disposition: 01 Home, Self Care Clinical Impression: Lower respiratory infection (e.g., bronchitis, pneumonia, pneumonitis, pulmonitis), Wheezing Condition: Stable Record reviewed to determine appropriate education?: Yes Instructions: ED Bronchitis Asthmatic Follow-Up: Patricia Hunter DNP [Primary Care Provider] - Prescriptions: Benzonatate [Tessalon Perle] 100 mg PO TID PRN #30 capsule PRN Reason: Cough Dexamethasone [Decadron] 4 mg PO DAILY #5 tablet Comments: Continue your albuterol inhaler and the current antibiotics. Add Decadron steroid and Tessalon for cough. Recheck if not improving over the next few days. Discharge Date/Time: 11/26/18 23:55
[2018-11-26] MEDS ORDERED: DEXAMETHASONE 10 MG/ML VIAL PO STA (20:47)
[2018-11-26] MEDS ORDERED: BENZONATATE 100 MG CAPSULE PO STA ×2 (20:47→21:58)
[2018-11-26] MEDS ORDERED: IPRATROPIUM/ALBUTEROL 3 ML NEB INH STA (20:47)
--- NOTE | 2018-11-26 20:53 | XRAY Report ---
Reason: influenza, cough, soa Procedure Date: 11/26/2018 Accession Number: [id number] / [id number] Procedure: XR - Chest 2 View X-Ray CPT Code: 12858 FULL RESULT: EXAM: CHEST RADIOGRAPHY EXAM DATE: 11/26/2018 08:46 PM. CLINICAL HISTORY: Influenza, cough, soa. COMPARISON: CHEST 1 VIEW 11/23/2018 1:36 AM. TECHNIQUE: 2 views. FINDINGS: Lungs/Pleura: Lung volumes are within normal limits. There is mild perihilar reticular opacity. No evidence of pleural effusion. No pneumothorax. Mediastinum: Heart and mediastinal contours are unremarkable. Other: None. IMPRESSION: 1. Lung volumes are somewhat low. 2. Normal heart size. 3. There is no evidence of lobar infiltrate or effusion. 4. There is no pneumothorax. RADIA
[2018-11-26] MEDS ORDERED: CHERRY SYRUP 10 ML UDC PO ONE (21:05)
[2018-11-26] MEDS ORDERED: LEVALBUTEROL 1.25 MG/3 ML NEB INH STA (21:58)
[2018-11-26] MEDS ORDERED: LEVALBUTEROL 1.25 MG/3 ML NEB INH ONE (22:01)
[2018-11-26 23:50] VITALS: BP 129/81
== END 2018-11-26 23:55 | disposition home or self-care (01) ==
LOC: EDUNIT# → ED 18:51
DX: J22 Unspecified acute lower respiratory infection (principal); R06.2 Wheezing; E11.9 Type 2 diabetes mellitus without complications; Z79.84 Long term (current) use of oral hypoglycemic drugs; Z86.73 Personal history of transient ischemic attack (TIA), and cerebral infarction without residual deficits
CPT/HCPCS: 71046; 94640; 99283; A9270

== ENCOUNTER 2018-11-28 17:06 | Outpatient (CLI) | payer MEDICARE, MEDICAID | END 2018-11-28 17:07 | disposition critical access hospital (66) | LOC: EMS 17:06 | PROVIDERS: ATTEND Surgery | DX: R51 Headache (principal) | CPT/HCPCS: A0425; A0429 ==

== ENCOUNTER 2018-11-28 17:27 | Emergency (ER) | payer MEDICARE, MEDICAID ==
[2018-11-28] MEDS ORDERED: HYDROcod/ACETAM 5/325 MG TABLET PO STA (18:14)
--- NOTE | 2018-11-28 18:16 | ED Physician Documentation ---
PD HPI HEADACHE - Stated complaint Stated Complaint: ERICKSON - Chief complaint Chief Complaint: Neuro - Additional information Additional information: 53-year-old female presents the emergency department for headache. The patient reports having chronic headaches and that this is her typical headache. The patient denies sudden onset. The patient denies neck pain, focal neurologic changes, fever or stiff neck. No other associated symptoms. No attempts at symptom management Review of Systems Constitutional: denies: Fever, Chills Eyes: denies: Discharge Ears: denies: Ear pain Nose: denies: Congestion Cardiac: denies: Chest pain / pressure Respiratory: denies: Cough GI: denies: Abdominal Pain Musculoskeletal: denies: Neck pain Neurologic: reports: Headache PD PAST MEDICAL HISTORY - Past Medical History Cardiovascular: Angina, Other Respiratory: COPD, Pneumonia Neuro: CVA, Seizure disorder Endocrine/Autoimmune: Type 2 diabetes GI: GERD, Hiatal hernia BELLMAKER: None : None HEENT: None Psych: Depression, Bipolar disorder, Schizophrenia, Post traumatic stress disorder Musculoskeletal: None Derm: None - Past Surgical History Past Surgical History: Yes General: Bowel surgery Ortho: Other /BELLMAKER: 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 HEENT: Cataracts - Present Medications Home Medications: Ambulatory Orders Medication Instructions Recorded Confirmed metFORMIN [Glucophage] 500 mg ORAL TID 09/06/18 11/22/18 Divalproex ER [Depakote ER] 750 mg PO BID #30 tablet 09/29/18 11/22/18 Mirtazapine [Remeron] 15 mg ORAL QPM #5 tablet 09/29/18 11/22/18 OLANZapine [Olanzapine] 10 mg ORAL BID #10 tablet 09/29/18 11/22/18 Prazosin HCl 1 mg PO QPM #5 capsule 09/29/18 11/22/18 clonazePAM [Clonazepam] 1 mg ORAL BID #10 tablet 09/29/18 11/22/18 Albuterol Sulf [Ventolin Hfa 1 - 2 puffs INH Q4HR PRN #1 inhaler 10/15/18 11/22/18 Inhaler] Ondansetron Odt [Zofran] 4 mg TL Q6H PRN #10 tablet 10/15/18 11/22/18 Promethazine [Phenergan] 25 mg PO Q6H PRN #10 tab 10/22/18 11/22/18 Baclofen 5 mg PO BID 10/28/18 11/22/18 Albuterol 2.5 mg INH Q4H PRN #30 neb 11/11/18 11/22/18 Albuterol Sulf [Ventolin Hfa 2 - 3 puffs INH Q4HR PRN #1 inhaler 11/11/18 11/22/18 Inhaler] Benzonatate [Tessalon Perle] 100 mg PO TID PRN #25 capsule 11/11/18 11/22/18 Dexamethasone [Decadron] 4 mg PO DAILY #5 tablet 11/11/18 11/22/18 Oseltamivir [Tamiflu] 75 mg PO BID #10 capsule 11/24/18 Benzonatate [Tessalon Perle] 100 mg PO TID PRN #30 capsule 11/26/18 Dexamethasone [Decadron] 4 mg PO DAILY #5 tablet 11/26/18 - Allergies Allergies/Adverse Reactions: Allergies Allergy/AdvReac Type Severity Reaction Status Date / Time azithromycin Allergy Severe Hives Verified 11/26/18 18:55 haloperidol Allergy Severe Anaphylaxis Verified 11/26/18 18:55 Penicillins Allergy Severe Anaphylaxis Verified 11/26/18 18:55 amoxicillin [Amoxicillin] Allergy Intermediate Rash Verified 11/26/18 18:55 grapefruit Allergy Intermediate Rash Verified 11/26/18 18:55 iodine Allergy Intermediate Rash Verified 11/26/18 18:55 Sulfa (Sulfonamide Allergy Intermediate Rash Verified 11/26/18 18:55 Antibiotics) haloperidol lactate * AdvReac Rash Verified 11/26/18 18:55 [From Haldol] - Social History Does the pt smoke?: Yes Smoking Status: Current every day smoker Does the pt drink ETOH?: No Does the pt have substance abuse?: No - Immunizations Immunizations are current?: No Immunizations: TDAP >10years/unknown - POLST Patient has POLST: No PD ED PE NORMAL - General General: Alert and oriented X 3, No acute distress - HEENT HEENT: Atraumatic, PERRL, EOMI, Ears normal - Cardiac Cardiac: RRR - Respiratory Respiratory: No respiratory distress - Derm Derm: Normal color - Extremities Extremities: No deformity - Neuro Neuro: Alert and oriented X 3, senior account executive 2-12 intact, No motor deficit, Normal speech - Psych Psych: Normal affect Results - Vitals Vitals: Vital Signs - 24 hr 11/28/18 11/28/18 17:37 18:21 Temperature 37.0 C Heart Rate 89 71 Respiratory 18 18 Rate Blood Pressure 124/72 112/71 O2 Saturation 96 95 Oxygen O2 Source [With Activity] Room air O2 Source [Without Activity] Room air O2 Source Room air PD MEDICAL DECISION MAKING - ED course ED course: The patient does not want any workup or evaluation regarding a headache and the patient only is requesting a [place] to help with the symptoms. The patient is capable of making his decision. I advised returning back to the emergency department any point for reevaluation. Departure - Departure Disposition: 01 Home, Self Care Clinical Impression: Headache Qualifiers: Headache type: unspecified Headache chronicity pattern: unspecified pattern Intractability: not intractable Qualified Code(s): R51 - Headache Condition: Good Instructions: ED Cephalgia Unspecified Follow-Up: Patricia Hunter DNP [Primary Care Provider] - Within 1 week Comments: You declined any further workup for your headache and only wanted on [place]. Please return back to the emergency department any point for reevaluation Discharge Date/Time: 11/28/18 18:22
[2018-11-28 18:22] VITALS: BP 112/71
== END 2018-11-28 18:22 | disposition home or self-care (01) ==
LOC: EDUNIT# → ED 17:27
DX: R51 Headache (principal); E11.9 Type 2 diabetes mellitus without complications; Z79.84 Long term (current) use of oral hypoglycemic drugs; F17.200 Nicotine dependence, unspecified, uncomplicated
CPT/HCPCS: 99283; A9270

== ENCOUNTER 2018-12-01 10:20 | Outpatient (CLI) | payer MEDICARE, MEDICAID | END 2018-12-01 10:21 | disposition critical access hospital (66) | LOC: EMS 10:20 | PROVIDERS: ATTEND Surgery | DX: R20.0 Anesthesia of skin (principal) | CPT/HCPCS: A0425; A0429 ==

== ENCOUNTER 2018-12-01 10:42 | Emergency (ER) | payer MEDICARE, MEDICAID ==
[2018-12-01 10:52] VITALS: BP 115/84
[2018-12-01 11:48] LABS: BILIRUBIN,URINE NEGATIVE (NEGATIVE); CLARITY,URINE CLEAR (CLEAR); GLUCOSE, URINE (UA) NEGATIVE (NEGATIVE); KETONES,URINE (UA) NEGATIVE (NEGATIVE); LEUKOCYTE ESTERASE, URINE NEGATIVE (NEGATIVE); NITRITE,URINE NEGATIVE (NEGATIVE); OCCULT BLOOD,URINE NEGATIVE (NEGATIVE); PROTEIN,URINE NEGATIVE (NEGATIVE); UROBILINOGEN,URINE 0.2 (NORMAL) E.U./dL (NORMAL)
[2018-12-01] MEDS ORDERED: KETOROLAC 30 MG/ML VIAL IVP STA (12:04)
[2018-12-01 12:05] LABS: BASOPHILS # (AUTO) 0.1 10^3/uL (0.0-0.1); BASOPHILS % (AUTO) 0.5 %; EOSINOPHILS # (AUTO) 0.1 10^3/uL (0.0-0.7); EOSINOPHILS % (AUTO) 0.4 %; HGB - HEMOGLOBIN 11.8 g/dL (12.0-16.0); LYMPHOCYTES # (AUTO) 4.6 10^3/uL (1.5-3.5); MEAN CORPUSCULAR HEMOGLOBIN 27.2 pg (27.0-31.0); MEAN CORPUSCULAR HGB CONC 32.3 g/dL (32.0-36.0); MEAN CORPUSCULAR VOLUME 84.2 fL (81.0-99.0); MONOCYTES # (AUTO) 1.6 10^3/uL (0.0-1.0); MONOCYTES % (AUTO) 9.7 %; NEUTROPHILS # (AUTO) 9.7 10^3/uL (1.5-6.6); NEUTROPHILS % (AUTO) 60.4 %; PLT - PLATELET COUNT 492 10^3/uL (130-450); RED BLOOD COUNT 4.33 10^6/uL (4.20-5.40); RED CELL DISTRIBUTION WIDTH 16.5 % (12.0-15.0)
--- NOTE | 2018-12-01 12:05 | ED Physician Documentation ---
PD HPI FOCAL NEURO - Stated complaint Stated Complaint: L SIDE PX - Chief complaint Chief Complaint: Neuro - History obtained from History obtained from: Patient - History of Present Illness Timing - onset: Today (53-year-old woman with psychiatric issues, I gave her TPA about a week ago and flew her to [place]. I had heard secondhand that it was a conversion disorder, the patient is unaware that it was related to psychiatric issues. We will try to get the records. Anyway she slept for 24 hours and awoke this morning with tingling on the left side again and with a left posterior headache. It is similar to the symptoms she had before she went to [place] last week.) Review of Systems Constitutional: denies: Fever, Chills Cardiac: denies: Chest pain / pressure, Palpitations Respiratory: denies: Dyspnea, Cough GI: denies: Abdominal Pain, Nausea, Vomiting, Diarrhea PD PAST MEDICAL HISTORY - Past Medical History Cardiovascular: Angina, Other Respiratory: COPD, Pneumonia Neuro: CVA, Seizure disorder Endocrine/Autoimmune: Type 2 diabetes GI: GERD, Hiatal hernia TUBE BENDER HAND: None : None HEENT: None Psych: Depression, Bipolar disorder, Schizophrenia, Post traumatic stress disorder Musculoskeletal: None Derm: None - Past Surgical History Past Surgical History: Yes General: Bowel surgery Ortho: Other /TUBE BENDER HAND: 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 HEENT: Cataracts - Present Medications Home Medications: Ambulatory Orders Medication Instructions Recorded Confirmed metFORMIN [Glucophage] 500 mg ORAL TID 09/06/18 11/22/18 Divalproex ER [Depakote ER] 750 mg PO BID #30 tablet 09/29/18 11/22/18 Mirtazapine [Remeron] 15 mg ORAL QPM #5 tablet 09/29/18 11/22/18 OLANZapine [Olanzapine] 10 mg ORAL BID #10 tablet 09/29/18 11/22/18 Prazosin HCl 1 mg PO QPM #5 capsule 09/29/18 11/22/18 clonazePAM [Clonazepam] 1 mg ORAL BID #10 tablet 09/29/18 11/22/18 Albuterol Sulf [Ventolin Hfa 1 - 2 puffs INH Q4HR PRN #1 inhaler 10/15/18 11/22/18 Inhaler] Ondansetron Odt [Zofran] 4 mg TL Q6H PRN #10 tablet 10/15/18 11/22/18 Promethazine [Phenergan] 25 mg PO Q6H PRN #10 tab 10/22/18 11/22/18 Baclofen 5 mg PO BID 10/28/18 11/22/18 Albuterol 2.5 mg INH Q4H PRN #30 neb 11/11/18 11/22/18 Albuterol Sulf [Ventolin Hfa 2 - 3 puffs INH Q4HR PRN #1 inhaler 11/11/18 11/22/18 Inhaler] Benzonatate [Tessalon Perle] 100 mg PO TID PRN #25 capsule 11/11/18 11/22/18 Dexamethasone [Decadron] 4 mg PO DAILY #5 tablet 11/11/18 11/22/18 Oseltamivir [Tamiflu] 75 mg PO BID #10 capsule 11/24/18 Benzonatate [Tessalon Perle] 100 mg PO TID PRN #30 capsule 11/26/18 Dexamethasone [Decadron] 4 mg PO DAILY #5 tablet 11/26/18 - Allergies Allergies/Adverse Reactions: Allergies Allergy/AdvReac Type Severity Reaction Status Date / Time azithromycin Allergy Severe Hives Verified 12/01/18 10:45 haloperidol Allergy Severe Anaphylaxis Verified 12/01/18 10:45 Penicillins Allergy Severe Anaphylaxis Verified 12/01/18 10:45 amoxicillin [Amoxicillin] Allergy Intermediate Rash Verified 12/01/18 10:45 grapefruit Allergy Intermediate Rash Verified 12/01/18 10:45 iodine Allergy Intermediate Rash Verified 12/01/18 10:45 Sulfa (Sulfonamide Allergy Intermediate Rash Verified 12/01/18 10:45 Antibiotics) haloperidol lactate * AdvReac Rash Verified 12/01/18 10:45 [From Haldol] - Social History Does the pt smoke?: Yes Smoking Status: Current every day smoker Does the pt drink ETOH?: No Does the pt have substance abuse?: No - Immunizations Immunizations are current?: No Immunizations: TDAP >10years/unknown - POLST Patient has POLST: No PD ED PE NORMAL - Vitals Vital signs reviewed: Yes - General General: Alert and oriented X 3, No acute distress - HEENT HEENT: PERRL, EOMI - Neck Neck: Supple, no meningeal sign, No bony TTP - Cardiac Cardiac: RRR, No murmur - Respiratory Respiratory: No respiratory distress, Clear bilaterally - Abdomen Abdomen: Soft, Non tender - Back Back: No CVA TTP, No spinal TTP - Derm Derm: Normal color, Warm and dry - Extremities Extremities: No edema, No calf tenderness / cord - Neuro Neuro: Normal speech - Psych Psych: Normal mood NIHSS - Time Time: 12:02 - Level of Consciousness Level of consciousness: (0) Alert, Keenly responsive LOC Questions: (0) Answers both Q's correct LOC Commands: (0) Performs both correctly - Gaze Best Gaze: (0) Normal - Visual Visual: (0) No loss - Facial Palsy Facial Palsy: (0) Normal, symmetrical movement - Motor Arms (both separate) Motor Arm (right): (0) No drift Motor Arm (left): (0) No drift (She drifts, but it is not pronator drift) - Motor Legs (both separate) Motor Leg (right): (0) No drift Motor Leg (left): (1) Drift - Limb Ataxia Limb Ataxia: (0) Absent - Sensory Sensory: (0) Normal - Best Language Best Language: (0) No aphasia - Dysarthria Dysarthria: (0) Normal - Extinction and Inattention (formally neg Extinction and inattention: (0) No abnormality - Total Score/Results Total Score/Result: 1 Results - Vitals Vitals: Vital Signs - 24 hr 12/01/18 12/01/18 10:43 10:45 Temperature 36.4 C L Heart Rate 81 80 Respiratory 16 14 Rate Blood Pressure 153/80 H 115/84 H O2 Saturation 99 96 Oxygen O2 Source [With Activity] Room air O2 Source [Without Activity] Room air O2 Source Room air - Labs Labs: Laboratory Tests 12/01/18 12/01/18 12/01/18 11:03 11:55 12:23 WBC 16.0 H RBC 4.33 Hgb 11.8 L Hct 36.4 L MCV 84.2 MCH 27.2 MCHC 32.3 RDW 16.5 H Plt Count 492 H MPV 10.0 Neut # (Auto) 9.7 H Lymph # (Auto) 4.6 H [place] # (Auto) 1.6 H Eos # (Auto) 0.1 Baso # (Auto) 0.1 Absolute Nucleated RBC 0.03 Nucleated RBC % 0.2 Manual Slide Review Indicated RBC Morph Micro Appear 2+ ANISOCYTOSIS Sodium 143 Potassium 3.9 Chloride 108 Carbon Dioxide 25 Anion Gap 10.0 BUN 10 Creatinine 0.6 Estimated GFR (MDRD) 104 Glucose 90 Calcium 8.9 Total Bilirubin 0.5 AST 12 ALT 14 Alkaline Phosphatase 81 Total Protein 7.0 Albumin 3.3 Globulin 3.7 Albumin/Globulin Ratio 0.9 L Lipase 21 L Urine Color YELLOW Urine Clarity CLEAR Urine pH 7.0 Ur Specific [place] 1.010 Urine Protein NEGATIVE Urine Glucose (UA) NEGATIVE Urine Ketones NEGATIVE Urine Occult Blood NEGATIVE Urine Nitrite NEGATIVE Urine Bilirubin NEGATIVE Urine Urobilinogen 0.2 (NORMAL) Ur Leukocyte Esterase NEGATIVE Ur Microscopic Review NOT INDICATED Urine Culture Comments NOT INDICATED Last Dose Date Last Dose Time Valproic Acid 12/01/18 12:23 WBC RBC Hgb Hct MCV MCH MCHC RDW Plt Count MPV Neut # (Auto) Lymph # (Auto) [place] # (Auto) Eos # (Auto) Baso # (Auto) Absolute Nucleated RBC Nucleated RBC % Manual Slide Review RBC Morph Micro Appear Sodium Potassium Chloride Carbon Dioxide Anion Gap BUN Creatinine Estimated GFR (MDRD) Glucose Calcium Total Bilirubin AST ALT Alkaline Phosphatase Total Protein Albumin Globulin Albumin/Globulin Ratio Lipase Urine Color Urine Clarity Urine pH Ur Specific [place] Urine Protein Urine Glucose (UA) Urine Ketones Urine Occult Blood Urine Nitrite Urine Bilirubin Urine Urobilinogen Ur Leukocyte Esterase Ur Microscopic Review Urine Culture Comments Last Dose Date UNK Last Dose Time UNK Valproic Acid 44.0 - Rads (name of study) CT Head Radiology: EMP read contemporaneously (Sinus dz, otherwise NAD) PD MEDICAL DECISION MAKING - ED course Complexity details: reviewed old records (Discharge summary from [place] was received and reviewed. She had a normal brain MRI with ongoing symptoms, making ischemia unlikely as a cause for her presentation. She has chronic left ICA stenosis and was started on aspirin and a statin for primary prevention. As I note here she has an inconsistent exam with give way weakness on the left side suggesting a psychiatric cause.) ED course: This is a 53-year-old woman with recently diagnosed likely conversion disorder who presents with a likely exacerbation of same with inconsistent neurologic examination. She was reassured that the previous extensive workup at [place] was negative for stroke. She is already on antibiotics for the sinus disease. Departure - Departure Disposition: 01 Home, Self Care Clinical Impression: Tobacco dependence, Conversion disorder Chronic sinusitis Qualifiers: Sinusitis location: maxillary Qualified Code(s): J32.0 - Chronic maxillary sinusitis Condition: Good Record reviewed to determine appropriate education?: Yes Comments: As discussed, your previous thorough workup at [facility] suggests and confirms that your symptoms are not related to stroke. Return for new or worsening symptoms. Follow-up with your regular physician and her psychiatric provider.
[2018-12-01 12:24] LABS: RBC MORPHOLOGY (MULTIPLE) 2+ ANISOCYTOSIS (NORMAL)
[2018-12-01 12:40] LABS: ALBUMIN 3.3 g/dL (3.2-5.5); ALBUMIN/GLOBULIN RATIO 0.9 (1.0-2.2); BILIRUBIN,TOTAL 0.5 mg/dL (0.2-1.0); CALCIUM 8.9 mg/dL (8.5-10.3); CREATININE 0.6 mg/dL (0.4-1.0)
--- NOTE | 2018-12-01 12:45 | CT Report ---
Reason: CVA sx Procedure Date: 12/01/2018 Accession Number: [id number] / [id number] Procedure: CT - HEAD WO CPT Code: FULL RESULT: EXAM: CT HEAD EXAM DATE: 12/01/2018 12:20 PM. CLINICAL HISTORY: CVA sx. COMPARISON: HEAD W/O 11/22/2018 10:51 PM. TECHNIQUE: Multiaxial CT images were obtained from the foramen magnum to the vertex. Reformats: Sagittal and coronal. IV contrast: None. In accordance with CT protocol optimization, one or more of the following dose reduction techniques were utilized for this exam: automated exposure control, adjustment of mA and/or KV based on patient size, or use of iterative reconstructive technique. FINDINGS: Parenchyma: No intraparenchymal hemorrhage. No evidence of mass, midline shift, or CT findings of infarction. Extraaxial Spaces: No subdural or epidural collections identified. Ventricles: Normal in size and position. Sinuses and Orbits: Extensive mucosal disease of the visualized paranasal sinuses particularly the bilateral maxillary sinuses. Bones: No evidence of fracture or calvarial defect. Other: None. IMPRESSION: 1. No CT evidence for acute intracranial injury. 2. Extensive mucosal disease paranasal sinuses, new since prior exam of 11/22/18. [facility] The call report notification system was initiated by Dr. Britney Beltran at 12:40 PM on 12/01/2018. The above critical test findings were discussed with Robert Patterson by Dr. Britney Beltran at 12:43 PM on 12/01/2018.
== END 2018-12-01 13:24 | disposition home or self-care (01) ==
LOC: ED 10:42
DX: F44.6 Conversion disorder with sensory symptom or deficit (principal); F17.200 Nicotine dependence, unspecified, uncomplicated; J32.9 Chronic sinusitis, unspecified; E11.9 Type 2 diabetes mellitus without complications; Z79.84 Long term (current) use of oral hypoglycemic drugs
CPT/HCPCS: 36415; 70450; 80053; 80164; 81001; 81003; 83690; 85025; 87086; 96374; 99284

== ENCOUNTER 2018-12-06 14:01 | Emergency (ER) | payer MEDICARE, MEDICAID ==
[2018-12-06 14:11] VITALS: BP 148/89
--- NOTE | 2018-12-06 14:24 | ED Physician Documentation ---
PD HPI DYSPNEA - Stated complaint Stated Complaint: COUGH/SOA - Chief complaint Chief Complaint: Resp - History obtained from History obtained from: Patient - History of Present Illness Timing - onset: How many days ago (few) Timing - duration: Days (few) Timing - details: Gradual onset, Waxing and waning Inciting event(s): URI (ongoing productive cough) Improved by: Inhaler/neb Worsened by: Coughing Associated symptoms: Cough, Wheezing, Chest pain / discomfort. No: Fever, Bilateral edema Review of Systems Constitutional: denies: Fever Nose: reports: Congestion Cardiac: reports: Chest pain / pressure (with coughing) Respiratory: reports: Cough, Wheezing PD PAST MEDICAL HISTORY - Past Medical History Cardiovascular: Angina, Other Respiratory: COPD, Pneumonia Neuro: CVA, Seizure disorder Endocrine/Autoimmune: Type 2 diabetes GI: GERD, Hiatal hernia RADIATOR SPECIALIST: None : None HEENT: None Psych: Depression, Bipolar disorder, Schizophrenia, Post traumatic stress disorder Musculoskeletal: None Derm: None - Past Surgical History Past Surgical History: Yes General: Bowel surgery Ortho: Other /RADIATOR SPECIALIST: 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 HEENT: Cataracts - Present Medications Home Medications: Ambulatory Orders Medication Instructions Recorded Confirmed metFORMIN [Glucophage] 500 mg ORAL TID 09/06/18 11/22/18 Divalproex ER [Depakote ER] 750 mg PO BID #30 tablet 09/29/18 11/22/18 Mirtazapine [Remeron] 15 mg ORAL QPM #5 tablet 09/29/18 11/22/18 OLANZapine [Olanzapine] 10 mg ORAL BID #10 tablet 09/29/18 11/22/18 Prazosin HCl 1 mg PO QPM #5 capsule 09/29/18 11/22/18 clonazePAM [Clonazepam] 1 mg ORAL BID #10 tablet 09/29/18 11/22/18 Albuterol Sulf [Ventolin Hfa 1 - 2 puffs INH Q4HR PRN #1 inhaler 10/15/18 11/22/18 Inhaler] Ondansetron Odt [Zofran] 4 mg TL Q6H PRN #10 tablet 10/15/18 11/22/18 Promethazine [Phenergan] 25 mg PO Q6H PRN #10 tab 10/22/18 11/22/18 Baclofen 5 mg PO BID 10/28/18 11/22/18 Albuterol 2.5 mg INH Q4H PRN #30 neb 11/11/18 11/22/18 Albuterol Sulf [Ventolin Hfa 2 - 3 puffs INH Q4HR PRN #1 inhaler 11/11/18 11/22/18 Inhaler] Benzonatate [Tessalon Perle] 100 mg PO TID PRN #25 capsule 11/11/18 11/22/18 Dexamethasone [Decadron] 4 mg PO DAILY #5 tablet 11/11/18 11/22/18 Oseltamivir [Tamiflu] 75 mg PO BID #10 capsule 11/24/18 Benzonatate [Tessalon Perle] 100 mg PO TID PRN #30 capsule 11/26/18 Dexamethasone [Decadron] 4 mg PO DAILY #5 tablet 11/26/18 Albuterol Sulf [Ventolin Hfa 1 - 2 puffs INH Q4HR PRN #1 inhaler 12/06/18 Inhaler] Dexamethasone [Decadron] 4 mg PO DAILY #5 tablet 12/06/18 Doxycycline Hyclate 100 mg PO BID #14 capsule 12/06/18 guaiFENesin/CODEINE [Robitussin AC] 10 ml PO Q6H PRN #240 ml 12/06/18 - Allergies Allergies/Adverse Reactions: Allergies Allergy/AdvReac Type Severity Reaction Status Date / Time azithromycin Allergy Severe Hives Verified 12/06/18 14:10 haloperidol Allergy Severe Anaphylaxis Verified 12/06/18 14:10 Penicillins Allergy Severe Anaphylaxis Verified 12/06/18 14:10 amoxicillin [Amoxicillin] Allergy Intermediate Rash Verified 12/06/18 14:10 grapefruit Allergy Intermediate Rash Verified 12/06/18 14:10 iodine Allergy Intermediate Rash Verified 12/06/18 14:10 Sulfa (Sulfonamide Allergy Intermediate Rash Verified 12/06/18 14:10 Antibiotics) haloperidol lactate * AdvReac Rash Verified 12/06/18 14:10 [From Haldol] - Social History Does the pt smoke?: Yes Smoking Status: Current every day smoker Does the pt drink ETOH?: No Does the pt have substance abuse?: No - Immunizations Immunizations are current?: No Immunizations: TDAP >10years/unknown - POLST Patient has POLST: No PD ED PE NORMAL - Vitals Vital signs reviewed: Yes - General General: Alert and oriented X 3, No acute distress, Well developed/nourished - HEENT HEENT: Pharynx benign - Neck Neck: Supple, no meningeal sign, No adenopathy - Cardiac Cardiac: RRR, No murmur - Respiratory Respiratory: No: Clear bilaterally (diffuse moderate wheezing. No coarse sounds. ) - Back Back: No CVA TTP - Derm Derm: Normal color, Warm and dry - Neuro Neuro: Alert and oriented X 3, No motor deficit, Normal speech Results - Vitals Vitals: Vital Signs - 24 hr 12/06/18 14:09 Temperature 36.7 C Heart Rate 87 Respiratory 20 Rate Blood Pressure 148/89 H O2 Saturation 97 Oxygen O2 Source [With Activity] Room air O2 Source [Without Activity] Room air O2 Source Room air PD MEDICAL DECISION MAKING - ED course Complexity details: considered differential (feels better with neb. ), d/w patient Departure - Departure Disposition: 01 Home, Self Care Clinical Impression: Lower respiratory infection (e.g., bronchitis, pneumonia, pneumonitis, pulmonitis), Asthma Condition: Stable Record reviewed to determine appropriate education?: Yes Instructions: ED Bronchitis Asthmatic Follow-Up: Patricia Hunter DNP [Primary Care Provider] - Prescriptions: Albuterol Sulf [Ventolin Hfa Inhaler] 1 - 2 puffs INH Q4HR PRN #1 inhaler PRN Reason: Shortness Of Air/Wheezing Dexamethasone [Decadron] 4 mg PO DAILY #5 tablet Doxycycline Hyclate 100 mg PO BID #14 capsule guaiFENesin/CODEINE [Robitussin AC] 10 ml PO Q6H PRN #240 ml PRN Reason: Cough Comments: Continue usual medications. Decadron daily for 5 more days to decrease of bronchial inflammation. Doxycycline twice daily for a week for presumed bacterial infection. Use your albuterol inhaler 2-3 puffs 4 times a day and extra times as needed for wheezing. Codeine cough medicine as needed for cough. Recheck if not improving over the next few days. Discharge Date/Time: 12/06/18 15:44
[2018-12-06] MEDS ORDERED: IPRATROPIUM/ALBUTEROL 3 ML NEB INH STA (14:39)
[2018-12-06] MEDS ORDERED: DEXAMETHASONE 10 MG/ML VIAL PO STA (14:39)
[2018-12-06] MEDS ORDERED: HYDROcod/ACETAM 5/325 MG TABLET PO STA (14:39)
[2018-12-06] MEDS ORDERED: DOXYCYCLINE 100 MG TABLET PO STA (14:39)
[2018-12-06] MEDS ORDERED: BENZONATATE 100 MG CAPSULE PO STA (14:40)
[2018-12-06] MEDS ORDERED: CHERRY SYRUP 10 ML UDC PO ONE (14:50)
== END 2018-12-06 15:44 | disposition home or self-care (01) ==
LOC: ED 14:01
DX: J44.0 Chronic obstructive pulmonary disease with (acute) lower respiratory infection (principal); J22 Unspecified acute lower respiratory infection; F17.200 Nicotine dependence, unspecified, uncomplicated; E11.9 Type 2 diabetes mellitus without complications; Z79.84 Long term (current) use of oral hypoglycemic drugs
CPT/HCPCS: 94640; 94664; 99283; A9270

== ENCOUNTER 2018-12-31 19:59 | Outpatient (CLI) | payer MEDICARE, MEDICAID | END 2018-12-31 20:00 | disposition critical access hospital (66) | LOC: EMS 19:59 | PROVIDERS: ATTEND Surgery | DX: R07.9 Chest pain, unspecified (principal) | CPT/HCPCS: A0425; A0429 ==

== ENCOUNTER 2018-12-31 20:17 | Emergency (ER) | payer MEDICARE, MEDICAID ==
--- NOTE | 2018-12-31 20:33 | ED Physician Documentation ---
PD HPI URI - Stated complaint Stated Complaint: CP,COUGH,CHILLS - History obtained from History obtained from: Patient - History of Present Illness Timing - onset: Today (this morning about 6 am, and has had the pain waxing and waning through the day) Timing duration: Hours (14) Timing details: Abrupt onset, Still present, Waxing and waning Associated symptoms: Dry cough. No: Fever Contributing factors: No: Sick contact, Travel, Immunocompromised Improves by: Rest Worsened by: Breathing, Position Similar symptoms before: No diagnosis Review of Systems Constitutional: reports: Fever Nose: reports: Congestion. denies: Rhinorrhea / runny nose Cardiac: reports: Chest pain / pressure (left chest). denies: Palpitations, Pedal edema, Calf pain Respiratory: reports: Cough. denies: Dyspnea, Wheezing GI: denies: Vomiting, Diarrhea Musculoskeletal: denies: Extremity swelling PD PAST MEDICAL HISTORY - Past Medical History Cardiovascular: Angina, Other Respiratory: COPD, Pneumonia Neuro: CVA, Seizure disorder Endocrine/Autoimmune: Type 2 diabetes GI: GERD, Hiatal hernia LEGAL OFFICER: None : None HEENT: None Psych: Depression, Bipolar disorder, Schizophrenia, Post traumatic stress disorder Musculoskeletal: None Derm: None - Past Surgical History Past Surgical History: Yes General: Bowel surgery Ortho: Other /LEGAL OFFICER: 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 HEENT: Cataracts - Present Medications Home Medications: Ambulatory Orders Medication Instructions Recorded Confirmed metFORMIN [Glucophage] 500 mg ORAL TID 09/06/18 11/22/18 Divalproex ER [Depakote ER] 750 mg PO BID #30 tablet 09/29/18 11/22/18 Mirtazapine [Remeron] 15 mg ORAL QPM #5 tablet 09/29/18 11/22/18 OLANZapine [Olanzapine] 10 mg ORAL BID #10 tablet 09/29/18 11/22/18 Prazosin HCl 1 mg PO QPM #5 capsule 09/29/18 11/22/18 clonazePAM [Clonazepam] 1 mg ORAL BID #10 tablet 09/29/18 11/22/18 Albuterol Sulf [Ventolin Hfa 1 - 2 puffs INH Q4HR PRN #1 inhaler 10/15/18 11/22/18 Inhaler] Ondansetron Odt [Zofran] 4 mg TL Q6H PRN #10 tablet 10/15/18 11/22/18 Promethazine [Phenergan] 25 mg PO Q6H PRN #10 tab 10/22/18 11/22/18 Baclofen 5 mg PO BID 10/28/18 11/22/18 Albuterol 2.5 mg INH Q4H PRN #30 neb 11/11/18 11/22/18 Albuterol Sulf [Ventolin Hfa 2 - 3 puffs INH Q4HR PRN #1 inhaler 11/11/18 11/22/18 Inhaler] Benzonatate [Tessalon Perle] 100 mg PO TID PRN #25 capsule 11/11/18 11/22/18 Dexamethasone [Decadron] 4 mg PO DAILY #5 tablet 11/11/18 11/22/18 Oseltamivir [Tamiflu] 75 mg PO BID #10 capsule 11/24/18 Benzonatate [Tessalon Perle] 100 mg PO TID PRN #30 capsule 11/26/18 Dexamethasone [Decadron] 4 mg PO DAILY #5 tablet 11/26/18 Albuterol Sulf [Ventolin Hfa 1 - 2 puffs INH Q4HR PRN #1 inhaler 12/06/18 Inhaler] Dexamethasone [Decadron] 4 mg PO DAILY #5 tablet 12/06/18 Doxycycline Hyclate 100 mg PO BID #14 capsule 12/06/18 guaiFENesin/CODEINE [Robitussin AC] 10 ml PO Q6H PRN #240 ml 12/06/18 Naproxen 375 mg PO BID #20 tablet 12/31/18 Tramadol HCl 50 mg PO Q6H PRN #15 tablet 12/31/18 - Allergies Allergies/Adverse Reactions: Allergies Allergy/AdvReac Type Severity Reaction Status Date / Time azithromycin Allergy Severe Hives Verified 12/31/18 20:33 haloperidol Allergy Severe Anaphylaxis Verified 12/31/18 20:33 Penicillins Allergy Severe Anaphylaxis Verified 12/31/18 20:33 amoxicillin [Amoxicillin] Allergy Intermediate Rash Verified 12/31/18 20:33 grapefruit Allergy Intermediate Rash Verified 12/31/18 20:33 iodine Allergy Intermediate Rash Verified 12/31/18 20:33 Sulfa (Sulfonamide Allergy Intermediate Rash Verified 12/31/18 20:33 Antibiotics) haloperidol lactate * AdvReac Rash Verified 12/31/18 20:33 [From Haldol] - Social History Does the pt smoke?: Yes Smoking Status: Current every day smoker Does the pt drink ETOH?: No Does the pt have substance abuse?: No - Immunizations Immunizations are current?: No Immunizations: TDAP >10years/unknown - POLST Patient has POLST: No PD ED PE NORMAL - Vitals Vital signs reviewed: Yes - General General: Alert and oriented X 3, No acute distress, Well developed/nourished - HEENT HEENT: Ears normal, Pharynx benign - Neck Neck: Supple, no meningeal sign, No adenopathy, No JVD - Cardiac Cardiac: RRR, No murmur - Respiratory Respiratory: Clear bilaterally - Abdomen Abdomen: Soft, Non tender - Derm Derm: Normal color, Warm and dry - Extremities Extremities: No tenderness to palpate, No edema - Neuro Neuro: Alert and oriented X 3, No motor deficit, Normal speech Results - Vitals Vitals: Vital Signs - 24 hr 12/31/18 12/31/18 12/31/18 20:28 21:02 22:55 Temperature 36.4 C L 36.8 C Heart Rate 98 66 Respiratory 18 16 Rate Blood Pressure 131/82 H 134/72 H Blood Pressure 131/82 H [Right] O2 Saturation 97 98 Oxygen O2 Source [With Activity] Room air O2 Source [Without Activity] Room air O2 Source Room air - EKG (time done) 22:16 Rate: Rate (enter#) (79) Rhythm: NSR Gates: Normal Intervals: Normal IA QRS: Poor R wave progression Ischemia: Normal ST segments. No: ST elevation c/w ischemia, ST depression - Labs Labs: Laboratory Tests 12/31/18 12/31/18 12/31/18 21:37 21:37 21:37 WBC 15.6 H RBC 4.60 Hgb 12.5 Hct 38.4 MCV 83.4 MCH 27.2 MCHC 32.6 RDW 17.1 H Plt Count 327 MPV 8.8 Neut # (Auto) Not Reportable Lymph # (Auto) Not Reportable Sutter # (Auto) Not Reportable Eos # (Auto) Not Reportable Baso # (Auto) Not Reportable Absolute Nucleated RBC Not Reportable Total Counted 100 Band Neuts % (Manual) 1 Abnorm Lymph % (Manual) 0 Nucleated RBC % Not Reportable Neutrophils # (Manual) 11.9 H Lymphocytes # (Manual) 3.0 Monocytes # (Manual) 0.5 Eosinophils # (Manual) 0.2 Basophils # (Manual) 0.2 H Differential Comment MANUAL DIFFERENTIAL Manual Slide Review Indicated WBC Morphology NORMAL APPEARANCE Platelet Estimate NORMAL (130-450,000) Platelet Morphology NORMAL APPEARANCE RBC Morph Micro Appear 1+ ANISOCYTOSIS Sodium 140 Potassium 3.7 Chloride 104 Carbon Dioxide 24 Anion Gap 12.0 BUN 7 Creatinine 0.7 Estimated GFR (MDRD) 87 L Glucose 112 H Calcium 8.7 Magnesium 2.0 Total Bilirubin 0.3 AST 17 ALT 14 Alkaline Phosphatase 65 Troponin I < 0.04 B-Natriuretic Peptide Total Protein 6.9 Albumin 3.3 Globulin 3.6 Albumin/Globulin Ratio 0.9 L Lipase 19 L 12/31/18 21:37 WBC RBC Hgb Hct MCV MCH MCHC RDW Plt Count MPV Neut # (Auto) Lymph # (Auto) Sutter # (Auto) Eos # (Auto) Baso # (Auto) Absolute Nucleated RBC Total Counted Band Neuts % (Manual) Abnorm Lymph % (Manual) Nucleated RBC % Neutrophils # (Manual) Lymphocytes # (Manual) Monocytes # (Manual) Eosinophils # (Manual) Basophils # (Manual) Differential Comment Manual Slide Review WBC Morphology Platelet Estimate Platelet Morphology RBC Morph Micro Appear Sodium Potassium Chloride Carbon Dioxide Anion Gap BUN Creatinine Estimated GFR (MDRD) Glucose Calcium Magnesium Total Bilirubin AST ALT Alkaline Phosphatase Troponin I B-Natriuretic Peptide 24 Total Protein Albumin Globulin Albumin/Globulin Ratio Lipase - Rads (name of study) chest xray Radiology: Prelim report reviewed (no acute), See rad report PD MEDICAL DECISION MAKING - ED course Complexity details: reviewed results, considered differential, d/w patient Departure - Departure Disposition: 01 Home, Self Care Clinical Impression: Left-sided chest pain Condition: Stable Record reviewed to determine appropriate education?: Yes Instructions: ED Strain Chest Wall Follow-Up: Patricia Hunter DNP [Primary Care Provider] - Prescriptions: Naproxen 375 mg PO BID #20 tablet Tramadol HCl 50 mg PO Q6H PRN #15 tablet PRN Reason: Pain Comments: Your ECG, Chest xray and blood tests are normal here. No signs of heart attack, heart failure or acute lung problems. I presume your pain is musculoskeletal. Take Naproxen twice daily with food for a week. Add Tylenol or Tramadol as needed. Discharge Date/Time: 12/31/18:57
[2018-12-31] MEDS ORDERED: MORPHINE 10 MG/ML VIAL IVP STA (20:42)
[2018-12-31] MEDS ORDERED: KETOROLAC 15 MG/ML VIAL IVP STA (20:42)
--- NOTE | 2018-12-31 21:22 | XRAY Report ---
Reason: left upper chest pain Procedure Date: 12/31/2018 Accession Number: [id number] / [id number] Procedure: XR - Chest 2 View X-Ray CPT Code: 46614 FULL RESULT: EXAM: CHEST RADIOGRAPHY EXAM DATE: 12/31/2018 09:02 PM. CLINICAL HISTORY: Left upper chest pain. COMPARISON: CHEST 2 VIEW 11/26/2018 8:35 PM. TECHNIQUE: 2 views. FINDINGS: Lungs/Pleura: There is central perihilar interstitial prominence which is unchanged. Lung volumes are stable and symmetric. No developing consolidation. Negative for pleural effusion and pneumothorax. Mediastinum: Heart and mediastinal contours are unremarkable. Other: None. IMPRESSION: No change. Central airway inflammation versus mild perihilar edema unchanged. RADIA
[2018-12-31 21:46] LABS: BASOPHILS % (AUTO) 0.8 %; EOSINOPHILS % (AUTO) 1.9 %; HGB - HEMOGLOBIN 12.5 g/dL (12.0-16.0); LYMPHOCYTES % (AUTO) 24.5 %; MEAN CORPUSCULAR HEMOGLOBIN 27.2 pg (27.0-31.0); MEAN CORPUSCULAR HGB CONC 32.6 g/dL (32.0-36.0); MEAN CORPUSCULAR VOLUME 83.4 fL (81.0-99.0); MEAN PLATELET VOLUME 8.8 fL (7.9-10.8); MONOCYTES % (AUTO) 11.1 %; NEUTROPHILS % (AUTO) 61.7 %; PLT - PLATELET COUNT 327 10^3/uL (130-450); RED CELL DISTRIBUTION WIDTH 17.1 % (12.0-15.0); WHITE BLOOD COUNT 15.6 x10^3/uL (4.8-10.8)
[2018-12-31 21:48] LABS: ABNORMAL LYMPHS % (MANUAL) 0 %
[2018-12-31 21:59] LABS: ALBUMIN 3.3 g/dL (3.2-5.5); ALBUMIN/GLOBULIN RATIO 0.9 (1.0-2.2); BILIRUBIN,TOTAL 0.3 mg/dL (0.2-1.0); CALCIUM 8.7 mg/dL (8.5-10.3); CREATININE 0.7 mg/dL (0.4-1.0); TOTAL PROTEIN 6.9 g/dL (6.7-8.2)
[2018-12-31 22:01] LABS: BAND NEUTROPHILS % (MANUAL) 1 %; BASOPHILS # (MANUAL) 0.2 10^3/uL (0-0.1); BASOPHILS % (MANUAL) 1 %; EOSINOPHILS # (MANUAL) 0.2 10^3/uL (0-0.7); LYMPHOCYTES % (MANUAL) 19 %; MONOCYTES # (MANUAL) 0.5 10^3/uL (0.0-1.0); NEUTROPHILS # (MANUAL) 11.9 10^3/uL (1.5-6.6); NEUTROPHILS % (MANUAL) 75 %; PLATELET ESTIMATE, MANUAL NORMAL (130-450,000) (NORMAL); PLATELET MORPHOLOGY NORMAL APPEARANCE (NORMAL); RBC MORPHOLOGY (MULTIPLE) 1+ ANISOCYTOSIS (NORMAL)
[2018-12-31 22:02] LABS: DIFFERENTIAL COMMENT MANUAL DIFFERENTIAL
[2018-12-31] MEDS ORDERED: HYDROmorphone 1 MG/ML CARPUJECT IVP STA (22:14)
[2018-12-31 22:55] VITALS: BP 134/72
== END 2018-12-31 22:57 | disposition home or self-care (01) ==
LOC: EDUNIT# → ED 20:17
DX: R07.9 Chest pain, unspecified (principal); E11.9 Type 2 diabetes mellitus without complications; Z79.84 Long term (current) use of oral hypoglycemic drugs; F17.200 Nicotine dependence, unspecified, uncomplicated; Z86.73 Personal history of transient ischemic attack (TIA), and cerebral infarction without residual deficits
CPT/HCPCS: 36415; 71046; 80053; 83690; 83735; 83880; 84484; 85025; 93005; 96374; 96375; 99283; 99284; J1170

== ENCOUNTER 2019-01-01 09:40 | Outpatient (CLI) | payer MEDICARE, MEDICAID ==
[2019-01-01 10:14] LABS: CHOLESTEROL 134 mg/dL; HDL CHOLESTEROL 45 mg/dL; LDL CHOLESTEROL,CALCULATED 60 mg/dL; LDL/HDL RATIO 1.3 (<4.4); VLDL CHOLESTEROL 29 mg/dL
[2019-01-01 10:25] LABS: HB2 TOTAL 14.2 g/dL; HEMOGLOBIN A1C 0.58 g/dL; HEMOGLOBIN A1C % 5.9 % (4.6-6.2)
== END 2019-01-01 09:41 | disposition home or self-care (01) ==
LOC: LAB 09:40
PROVIDERS: ATTEND Licensed Practical Nurse
DX: F20.9 Schizophrenia, unspecified (principal); Z79.899 Other long term (current) drug therapy
CPT/HCPCS: 36415; 80061; 83036; 83721

== ENCOUNTER 2019-01-12 16:59 | Outpatient (CLI) | payer MEDICARE, MEDICAID | END 2019-01-12 17:00 | disposition critical access hospital (66) | LOC: EMS 16:59 | PROVIDERS: ATTEND Surgery | DX: M54.5 Low back pain (principal); R06.02 Shortness of breath | CPT/HCPCS: A0425; A0427 ==

== ENCOUNTER 2019-01-12 17:17 | Emergency (ER) | payer MEDICARE, MEDICAID ==
[2019-01-12 17:51] LABS: BILIRUBIN,URINE NEGATIVE (NEGATIVE); GLUCOSE, URINE (UA) NEGATIVE (NEGATIVE); KETONES,URINE (UA) NEGATIVE (NEGATIVE); LEUKOCYTE ESTERASE, URINE NEGATIVE (NEGATIVE); NITRITE,URINE NEGATIVE (NEGATIVE); OCCULT BLOOD,URINE NEGATIVE (NEGATIVE); PH,URINE 5.5 PH (5.0-7.5); PROTEIN,URINE NEGATIVE (NEGATIVE); UROBILINOGEN,URINE 0.2 (NORMAL) E.U./dL (NORMAL)
[2019-01-12 17:55] LABS: CLARITY,URINE CLEAR (CLEAR)
--- NOTE | 2019-01-12 18:11 | ED Physician Documentation ---
PD HPI BACK PAIN - Stated complaint Stated Complaint: LOW BACK PX - Chief complaint Chief Complaint: General - History obtained from History obtained from: Patient - History of Present Illness Timing - onset: Today Timing - details: Gradual onset, Still present (has ongoing back pain and has Rx for Tramadol, per patient. She is out of the Tramadol today (last dose earlier) and back hurting more. Also having increase in her baseline wheezing and cough.) Location: Mid, Lower Quality: Pain, Aching, Similar to prior episodes Associated symptoms: No: Fever, Weakness, Numbness, Incontinent of urine Improves with: Rest, Meds Worsened by: Movement Contributing factors: No: Lifting, Twisting, Trauma Similar symptoms before: Diagnosis (ongoing back pain) Review of Systems Constitutional: denies: Fever, Chills Nose: denies: Rhinorrhea / runny nose, Congestion Throat: denies: Sore throat Cardiac: denies: Chest pain / pressure, Palpitations Respiratory: reports: Dyspnea, Cough, Wheezing GI: denies: Abdominal Pain, Nausea, Vomiting, Diarrhea Skin: denies: Rash, Lesions Musculoskeletal: reports: Back pain. denies: Neck pain Neurologic: denies: Focal weakness, Numbness PD PAST MEDICAL HISTORY - Past Medical History Cardiovascular: Angina, Other Respiratory: COPD, Pneumonia Neuro: CVA, Seizure disorder Endocrine/Autoimmune: Type 2 diabetes GI: GERD, Hiatal hernia WINDOWS CONSULTANT: None : None HEENT: None Psych: Depression, Bipolar disorder, Schizophrenia, Post traumatic stress disorder Musculoskeletal: None Derm: None - Past Surgical History Past Surgical History: Yes General: Bowel surgery Ortho: Other /WINDOWS CONSULTANT: 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 HEENT: Cataracts - Present Medications Home Medications: Ambulatory Orders Medication Instructions Recorded Confirmed metFORMIN [Glucophage] 500 mg ORAL TID 09/06/18 11/22/18 Divalproex ER [Depakote ER] 750 mg PO BID #30 tablet 09/29/18 11/22/18 Mirtazapine [Remeron] 15 mg ORAL QPM #5 tablet 09/29/18 11/22/18 OLANZapine [Olanzapine] 10 mg ORAL BID #10 tablet 09/29/18 11/22/18 Prazosin HCl 1 mg PO QPM #5 capsule 09/29/18 11/22/18 clonazePAM [Clonazepam] 1 mg ORAL BID #10 tablet 09/29/18 11/22/18 Albuterol Sulf [Ventolin Hfa 1 - 2 puffs INH Q4HR PRN #1 inhaler 10/15/18 11/22/18 Inhaler] Ondansetron Odt [Zofran] 4 mg TL Q6H PRN #10 tablet 10/15/18 11/22/18 Promethazine [Phenergan] 25 mg PO Q6H PRN #10 tab 10/22/18 11/22/18 Baclofen 5 mg PO BID 10/28/18 11/22/18 Albuterol 2.5 mg INH Q4H PRN #30 neb 11/11/18 11/22/18 Albuterol Sulf [Ventolin Hfa 2 - 3 puffs INH Q4HR PRN #1 inhaler 11/11/18 11/22/18 Inhaler] Benzonatate [Tessalon Perle] 100 mg PO TID PRN #25 capsule 11/11/18 11/22/18 Dexamethasone [Decadron] 4 mg PO DAILY #5 tablet 11/11/18 11/22/18 Oseltamivir [Tamiflu] 75 mg PO BID #10 capsule 11/24/18 Benzonatate [Tessalon Perle] 100 mg PO TID PRN #30 capsule 11/26/18 Dexamethasone [Decadron] 4 mg PO DAILY #5 tablet 11/26/18 Albuterol Sulf [Ventolin Hfa 1 - 2 puffs INH Q4HR PRN #1 inhaler 12/06/18 Inhaler] Dexamethasone [Decadron] 4 mg PO DAILY #5 tablet 12/06/18 Doxycycline Hyclate 100 mg PO BID #14 capsule 12/06/18 guaiFENesin/CODEINE [Robitussin AC] 10 ml PO Q6H PRN #240 ml 12/06/18 Naproxen 375 mg PO BID #20 tablet 12/31/18 Tramadol HCl 50 mg PO Q6H PRN #15 tablet 12/31/18 Benzonatate [Tessalon Perle] 100 mg PO TID PRN #20 capsule 01/12/19 Dexamethasone [Decadron] 4 mg PO DAILY #5 tablet 01/12/19 Tramadol HCl 50 mg PO Q6H PRN #20 tablet 01/12/19 - Allergies Allergies/Adverse Reactions: Allergies Allergy/AdvReac Type Severity Reaction Status Date / Time azithromycin Allergy Severe Hives Verified 12/31/18 20:33 haloperidol Allergy Severe Anaphylaxis Verified 12/31/18 20:33 Penicillins Allergy Severe Anaphylaxis Verified 12/31/18 20:33 amoxicillin [Amoxicillin] Allergy Intermediate Rash Verified 12/31/18 20:33 grapefruit Allergy Intermediate Rash Verified 12/31/18 20:33 iodine Allergy Intermediate Rash Verified 12/31/18 20:33 Sulfa (Sulfonamide Allergy Intermediate Rash Verified 12/31/18 20:33 Antibiotics) haloperidol lactate * AdvReac Rash Verified 12/31/18 20:33 [From Haldol] - Social History Does the pt smoke?: Yes Smoking Status: Current every day smoker Does the pt drink ETOH?: No Does the pt have substance abuse?: No - Immunizations Immunizations are current?: No Immunizations: TDAP >10years/unknown - POLST Patient has POLST: No PD ED PE NORMAL - Vitals Vital signs reviewed: Yes - General General: Alert and oriented X 3, No acute distress, Well developed/nourished - HEENT HEENT: Pharynx benign - Neck Neck: Supple, no meningeal sign, No adenopathy - Cardiac Cardiac: RRR, No murmur - Respiratory Respiratory: Other (some wheezing noted bilaterally. No work of breathing. ) - Abdomen Abdomen: Soft, Non tender - Back Back: No CVA TTP, No spinal TTP (but is tender in paravertebral muscles in TL area. ) - Derm Derm: Normal color, Warm and dry - Extremities Extremities: No deformity, No tenderness to palpate, Normal ROM s pain, No edema, No calf tenderness / cord - Neuro Neuro: Alert and oriented X 3, No motor deficit, No sensory deficit, Normal speech Results - Vitals Vitals: Vital Signs - 24 hr 01/12/19 01/12/19 17:36 19:21 Temperature 36.7 C 35.9 C L Heart Rate 93 81 Respiratory 14 14 Rate Blood Pressure 125/79 142/89 H O2 Saturation 96 97 Oxygen O2 Source [With Activity] Room air O2 Source [Without Activity] Room air O2 Source Room air - Labs Labs: Laboratory Tests 01/12/19 17:45 Urine Color YELLOW Urine Clarity CLEAR Urine pH 5.5 Ur Specific [place] 1.010 Urine Protein NEGATIVE Urine Glucose (UA) NEGATIVE Urine Ketones NEGATIVE Urine Occult Blood NEGATIVE Urine Nitrite NEGATIVE Urine Bilirubin NEGATIVE Urine Urobilinogen 0.2 (NORMAL) Ur Leukocyte Esterase NEGATIVE Ur Microscopic Review NOT INDICATED Urine Culture Comments NOT INDICATED Departure - Departure Disposition: 01 Home, Self Care Clinical Impression: Cough, Wheezing Acute thoracic back pain Qualifiers: Back pain laterality: unspecified Qualified Code(s): M54.6 - Pain in thoracic spine Condition: Stable Record reviewed to determine appropriate education?: Yes Instructions: ED Neck Back Pain General Follow-Up: Alethea Bolanos ARNP [Primary Care Provider] - Prescriptions: Benzonatate [Tessalon Perle] 100 mg PO TID PRN #20 capsule PRN Reason: Cough Dexamethasone [Decadron] 4 mg PO DAILY #5 tablet Tramadol HCl 50 mg PO Q6H PRN #20 tablet PRN Reason: Pain Comments: Continue your albuterol inhaler 2 to 3 puffs every 4 hours if needed for cough and wheezing. Add Tessalon if needed for cough. Decadron steroid daily for 5 more days to help with wheezing and cough symptoms. For your back use the hydrocodone every 4 to 4 to 6 hours tonight and then I wrote a prescription for more tramadol to continue with through the next several days this coming week. Follow-up with your primary care regarding ongoing symptoms. Discharge Date/Time: 01/12/19 19:22
[2019-01-12] MEDS ORDERED: KETOROLAC 30 MG/ML VIAL IM STA (18:33)
[2019-01-12] MEDS ORDERED: DEXAMETHASONE 10 MG/ML VIAL PO STA (18:33)
[2019-01-12] MEDS ORDERED: CHERRY SYRUP 10 ML UDC PO ONE (18:33)
[2019-01-12] MEDS ORDERED: HYDROcod/ACETAM 5/325 MG TABLET PO STA (18:33)
--- NOTE | 2019-01-12 18:59 | XRAY Report ---
Reason: dyspnea/ cough; lower thoracic pain Procedure Date: 01/12/2019 Accession Number: [id number] / [id number] Procedure: XR - Chest 2 View X-Ray CPT Code: 67790 FULL RESULT: EXAM: CHEST RADIOGRAPHY EXAM DATE: 01/12/2019 06:46 PM. CLINICAL HISTORY: Dyspnea. Cough. Lower thoracic pain. COMPARISON: CHEST 2 VIEW 12/31/2018 8:52 PM. TECHNIQUE: 2 views. FINDINGS: Lungs/Pleura: Mild bronchial thickening. No dense consolidation. Lung volumes increased. No pleural effusions. No pneumothorax. Mediastinum: Heart size is normal. Aorta is mildly tortuous. Other: Degenerative changes of the thoracic spine. IMPRESSION: 1. Mild bronchial thickening which can be seen with bronchitis although improved compared to 12/31/2018. No dense consolidation. RADIA
[2019-01-12] MEDS ORDERED: HYDROcod/ACET 5/325 Prepack 4 PO STA (19:06)
[2019-01-12] MEDS ORDERED: BENZONATATE 100 MG CAPSULE PO STA (19:15)
[2019-01-12 19:23] VITALS: BP 142/89
== END 2019-01-12 19:22 | disposition home or self-care (01) ==
LOC: EDUNIT# → ED 17:17
DX: M54.6 Pain in thoracic spine (principal); R06.2 Wheezing; R05 Cough; E11.9 Type 2 diabetes mellitus without complications; F17.200 Nicotine dependence, unspecified, uncomplicated
CPT/HCPCS: 71046; 81003; 96372; 99283; A9270; 81001; 87086

== ENCOUNTER 2019-01-19 19:31 | Outpatient (CLI) | payer MEDICARE, MEDICAID | END 2019-01-19 19:32 | disposition critical access hospital (66) | LOC: EMS 19:31 | PROVIDERS: ATTEND Surgery | DX: R45.851 Suicidal ideations (principal) | CPT/HCPCS: A0425; A0429 ==

== ENCOUNTER 2019-01-19 19:48 | Emergency (ER) | payer MEDICARE, MEDICAID ==
--- NOTE | 2019-01-19 20:11 | ED Physician Documentation ---
PD HPI MHE - Stated complaint Stated Complaint: SI - Chief complaint Chief Complaint: MHE - History obtained from History obtained from: Patient, EMS - History of Present Illness Primary symptom: Suicidal ideation, Depression Timing - onset: Chronic Contributing factors: Other (depressed because it is Mothers Day; her mother has and she gets depressed this day because it is a reminder of her late mother. she endorses vague suicidal thoughts, mostly that she doesnt feel safe (per patient)) Recently seen: Emergency Dept (well known to this ED because of frequent visits) Review of Systems Cardiac: reports: Reviewed and negative Respiratory: reports: Reviewed and negative GI: reports: Reviewed and negative Psychiatric: reports: Depressed, Suicidal (uncertain intent, as she denies plan and only speaks of general feeling of depression making her feel not safe), Anxiety. denies: Homicidal, Hallucinations, Delusions PD PAST MEDICAL HISTORY - Past Medical History Past Medical History: Yes Cardiovascular: Angina, Other Respiratory: COPD, Pneumonia Neuro: CVA, Seizure disorder Endocrine/Autoimmune: Type 2 diabetes GI: GERD, Hiatal hernia STEM ROLLER: None : None HEENT: None Psych: Depression, Bipolar disorder, Schizophrenia, Post traumatic stress disorder Musculoskeletal: None Derm: None - Past Surgical History Past Surgical History: Yes General: Bowel surgery Ortho: Other /STEM ROLLER: 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 HEENT: Cataracts - Present Medications Home Medications: Ambulatory Orders Medication Instructions Recorded Confirmed metFORMIN [Glucophage] 500 mg ORAL TID 09/06/18 11/22/18 Divalproex ER [Depakote ER] 750 mg PO BID #30 tablet 09/29/18 11/22/18 Mirtazapine [Remeron] 15 mg ORAL QPM #5 tablet 09/29/18 11/22/18 OLANZapine [Olanzapine] 10 mg ORAL BID #10 tablet 09/29/18 11/22/18 Prazosin HCl 1 mg PO QPM #5 capsule 09/29/18 11/22/18 clonazePAM [Clonazepam] 1 mg ORAL BID #10 tablet 09/29/18 11/22/18 Albuterol Sulf [Ventolin Hfa 1 - 2 puffs INH Q4HR PRN #1 inhaler 10/15/18 11/22/18 Inhaler] Ondansetron Odt [Zofran] 4 mg TL Q6H PRN #10 tablet 10/15/18 11/22/18 Promethazine [Phenergan] 25 mg PO Q6H PRN #10 tab 10/22/18 11/22/18 Baclofen 5 mg PO BID 10/28/18 11/22/18 Albuterol 2.5 mg INH Q4H PRN #30 neb 11/11/18 11/22/18 Albuterol Sulf [Ventolin Hfa 2 - 3 puffs INH Q4HR PRN #1 inhaler 11/11/18 11/22/18 Inhaler] Benzonatate [Tessalon Perle] 100 mg PO TID PRN #25 capsule 11/11/18 11/22/18 Dexamethasone [Decadron] 4 mg PO DAILY #5 tablet 11/11/18 11/22/18 Oseltamivir [Tamiflu] 75 mg PO BID #10 capsule 11/24/18 Benzonatate [Tessalon Perle] 100 mg PO TID PRN #30 capsule 11/26/18 Dexamethasone [Decadron] 4 mg PO DAILY #5 tablet 11/26/18 Albuterol Sulf [Ventolin Hfa 1 - 2 puffs INH Q4HR PRN #1 inhaler 12/06/18 Inhaler] Dexamethasone [Decadron] 4 mg PO DAILY #5 tablet 12/06/18 Doxycycline Hyclate 100 mg PO BID #14 capsule 12/06/18 guaiFENesin/CODEINE [Robitussin AC] 10 ml PO Q6H PRN #240 ml 12/06/18 Naproxen 375 mg PO BID #20 tablet 12/31/18 Tramadol HCl 50 mg PO Q6H PRN #15 tablet 12/31/18 Benzonatate [Tessalon Perle] 100 mg PO TID PRN #20 capsule 01/12/19 Dexamethasone [Decadron] 4 mg PO DAILY #5 tablet 01/12/19 Tramadol HCl 50 mg PO Q6H PRN #20 tablet 01/12/19 LORazepam [Lorazepam] 0.5 - 1 mg PO BID PRN #10 tablet 01/20/19 - Allergies Allergies/Adverse Reactions: Allergies Allergy/AdvReac Type Severity Reaction Status Date / Time azithromycin Allergy Severe Hives Verified 12/31/18 20:33 haloperidol Allergy Severe Anaphylaxis Verified 12/31/18 20:33 Penicillins Allergy Severe Anaphylaxis Verified 12/31/18 20:33 amoxicillin [Amoxicillin] Allergy Intermediate Rash Verified 12/31/18 20:33 grapefruit Allergy Intermediate Rash Verified 12/31/18 20:33 iodine Allergy Intermediate Rash Verified 12/31/18 20:33 Sulfa (Sulfonamide Allergy Intermediate Rash Verified 12/31/18 20:33 Antibiotics) haloperidol lactate * AdvReac Rash Verified 12/31/18 20:33 [From Haldol] - Social History Does the pt smoke?: Yes Smoking Status: Current every day smoker Does the pt drink ETOH?: No Does the pt have substance abuse?: No - Immunizations Immunizations are current?: No Immunizations: TDAP >10years/unknown - POLST Patient has POLST: No PD ED PE NORMAL - Vitals Vital signs reviewed: Yes - General General: Alert and oriented X 3, No acute distress, Well developed/nourished - HEENT HEENT: Moist mucous membranes - Cardiac Cardiac: RRR, No murmur - Respiratory Respiratory: No respiratory distress, Clear bilaterally - Abdomen Abdomen: Soft, Non tender - Neuro Neuro: Alert and oriented X 3 PD ED PE EXPANDED - Psych Psych: Depressed (mildly depressed mood, although she is joking with staff at times and smiling). No: Intoxicated / AOB, Tearful, Withdrawn (frequently talking to staff, often initiating conversation herself) Results - Vitals Vitals: Oxygen O2 Source [With Activity] Room air O2 Source [Without Activity] Room air O2 Source Room air - Labs Labs: Laboratory Tests 01/19/19 01/19/19 01/19/19 21:05 21:05 21:05 WBC 19.7 H RBC 4.48 Hgb 12.1 Hct 37.2 MCV 83.2 MCH 27.0 MCHC 32.5 RDW 17.6 H Plt Count 358 MPV 9.3 Neut # (Auto) Not Reportable Lymph # (Auto) Not Reportable Allen # (Auto) Not Reportable Eos # (Auto) Not Reportable Baso # (Auto) Not Reportable Absolute Nucleated RBC Not Reportable Total Counted 100 Band Neuts % (Manual) 0 Abnorm Lymph % (Manual) 0 Myelocytes % 1 H Nucleated RBC % Not Reportable Neutrophils # (Manual) 11.2 H Lymphocytes # (Manual) 6.7 H Monocytes # (Manual) 1.2 H Eosinophils # (Manual) 0.4 Basophils # (Manual) 0.0 Differential Comment MANUAL DIFFERENTIAL Manual Slide Review Indicated WBC Morphology NORMAL APPEARANCE Platelet Estimate NORMAL (130-450,000) Platelet Morphology NORMAL APPEARANCE RBC Morph Micro Appear 1+ TARGET CELLS Sodium 139 Potassium 4.2 Chloride 100 L Carbon Dioxide 25 Anion Gap 14.0 H BUN 19 Creatinine 0.7 Estimated GFR (MDRD) 87 L Glucose 104 H Calcium 8.7 Urine Color Urine Clarity Urine pH Ur Specific [place] Urine Protein Urine Glucose (UA) Urine Ketones Urine Occult Blood Urine Nitrite Urine Bilirubin Urine Urobilinogen Ur Leukocyte Esterase Ur Microscopic Review Urine Culture Comments Last Dose Date UNK Last Dose Time UNK Salicylates < 6.0 Urine Opiates Screen Ur Oxycodone Screen Urine Methadone Screen Ur Propoxyphene Screen Acetaminophen 21 Ur Barbiturates Screen Valproic Acid 48.9 Ur Tricyclics Screen Ur Phencyclidine Scrn Ur Amphetamine Screen U Methamphetamines Scrn U Benzodiazepines Scrn Urine Cocaine Screen U Cannabinoids Screen Ethyl Alcohol < 5.0 01/19/19 22:30 WBC RBC Hgb Hct MCV MCH MCHC RDW Plt Count MPV Neut # (Auto) Lymph # (Auto) Allen # (Auto) Eos # (Auto) Baso # (Auto) Absolute Nucleated RBC Total Counted Band Neuts % (Manual) Abnorm Lymph % (Manual) Myelocytes % Nucleated RBC % Neutrophils # (Manual) Lymphocytes # (Manual) Monocytes # (Manual) Eosinophils # (Manual) Basophils # (Manual) Differential Comment Manual Slide Review WBC Morphology Platelet Estimate Platelet Morphology RBC Morph Micro Appear Sodium Potassium Chloride Carbon Dioxide Anion Gap BUN Creatinine Estimated GFR (MDRD) Glucose Calcium Urine Color YELLOW Urine Clarity CLEAR Urine pH 5.5 Ur Specific [place] 1.025 Urine Protein NEGATIVE Urine Glucose (UA) NEGATIVE Urine Ketones TRACE Urine Occult Blood NEGATIVE Urine Nitrite NEGATIVE Urine Bilirubin NEGATIVE Urine Urobilinogen 0.2 (NORMAL) Ur Leukocyte Esterase NEGATIVE Ur Microscopic Review NOT INDICATED Urine Culture Comments NOT INDICATED Last Dose Date Last Dose Time Salicylates Urine Opiates Screen NEGATIVE Ur Oxycodone Screen NEGATIVE Urine Methadone Screen NEGATIVE Ur Propoxyphene Screen NEGATIVE Acetaminophen Ur Barbiturates Screen NEGATIVE Valproic Acid Ur Tricyclics Screen NEGATIVE Ur Phencyclidine Scrn NEGATIVE Ur Amphetamine Screen NEGATIVE U Methamphetamines Scrn NEGATIVE U Benzodiazepines Scrn NEGATIVE Urine Cocaine Screen NEGATIVE U Cannabinoids Screen NEGATIVE Ethyl Alcohol PD MEDICAL DECISION MAKING - ED course Complexity details: reviewed old records, reviewed results, re-evaluated patient, considered differential, d/w patient ED course: cleared for d/c by telepsych consult. I am familiar with this patient from several previous encounters and her behavior and mood is not particularly diffe rent from what I have observed to be her baseline; telepsych obtained because she is endorsing feeling unsafe at home, but early in ED stay, she relented and requested discharge home. she was agreeable to staying until evaluation was completed, and seemed to be in good spirits by the time she was discharged. she expressed to me that she was comfortable with discharge and did not have any further thoughts of self-harm Departure - Departure Disposition: 01 Home, Self Care Clinical Impression: Depression, Anxiety Condition: Good Instructions: ED Stress React, ED Depression Follow-Up: Alethea Bolanos ARNP [Primary Care Provider] - Prescriptions: LORazepam [Lorazepam] 0.5 - 1 mg PO BID PRN #10 tablet PRN Reason: Anxiety Discharge Date/Time: 01/20/19 03:28
[2019-01-19] MEDS ORDERED: ZINC OXIDE 20% OINT 28.35 GM TUBE TOP STA (20:32)
[2019-01-19 21:10] LABS: BASOPHILS % (AUTO) 0.9 %; EOSINOPHILS % (AUTO) 0.9 %; HGB - HEMOGLOBIN 12.1 g/dL (12.0-16.0); MEAN CORPUSCULAR HGB CONC 32.5 g/dL (32.0-36.0); MEAN CORPUSCULAR VOLUME 83.2 fL (81.0-99.0); MEAN PLATELET VOLUME 9.3 fL (7.9-10.8); MONOCYTES % (AUTO) 13.6 %; NEUTROPHILS % (AUTO) 47.6 %; PLT - PLATELET COUNT 358 10^3/uL (130-450); RED BLOOD COUNT 4.48 10^6/uL (4.20-5.40); RED CELL DISTRIBUTION WIDTH 17.6 % (12.0-15.0); WHITE BLOOD COUNT 19.7 x10^3/uL (4.8-10.8)
[2019-01-19 21:15] LABS: ABNORMAL LYMPHS % (MANUAL) 0 %; BAND NEUTROPHILS % (MANUAL) 0 %
[2019-01-19 21:25] LABS: ACETAMINOPHEN 21 ug/mL (10-30); BUN - BLOOD UREA NITROGEN 19 mg/dL (6-20); CALCIUM 8.7 mg/dL (8.5-10.3); CARBON DIOXIDE - CO2 25 mmol/L (21-32); CHLORIDE 100 mmol/L (101-111); CREATININE 0.7 mg/dL (0.4-1.0); GFR - MDRD 87 (>89); GLUCOSE 104 mg/dL (70-100); SALICYLATE < 6.0 mg/dL; SODIUM 139 mmol/L (135-145); VALPROIC ACID (DEPAKOTE) 48.9 ug/mL
[2019-01-19] MEDS ORDERED: LORazepam 0.5 MG TABLET PO STA (21:25)
[2019-01-19 21:29] LABS: EOSINOPHILS # (MANUAL) 0.4 10^3/uL (0-0.7); LYMPHOCYTES # (MANUAL) 6.7 10^3/uL (1.5-3.5); LYMPHOCYTES % (MANUAL) 34 %; MONOCYTES # (MANUAL) 1.2 10^3/uL (0.0-1.0); MYELOCYTES % (MANUAL) 1 %; NEUTROPHILS # (MANUAL) 11.2 10^3/uL (1.5-6.6); NEUTROPHILS % (MANUAL) 57 %
[2019-01-19 21:30] LABS: DIFFERENTIAL COMMENT MANUAL DIFFERENTIAL; PLATELET ESTIMATE, MANUAL NORMAL (130-450,000) (NORMAL); PLATELET MORPHOLOGY NORMAL APPEARANCE (NORMAL)
[2019-01-19 22:32] LABS: MUDS CUTOFF CONCENTRATIONS CUTOFF CONC BELOW:
[2019-01-19 22:52] LABS: BILIRUBIN,URINE NEGATIVE (NEGATIVE); GLUCOSE, URINE (UA) NEGATIVE (NEGATIVE); KETONES,URINE (UA) TRACE mg/dL (NEGATIVE); LEUKOCYTE ESTERASE, URINE NEGATIVE (NEGATIVE); NITRITE,URINE NEGATIVE (NEGATIVE); OCCULT BLOOD,URINE NEGATIVE (NEGATIVE); PH,URINE 5.5 PH (5.0-7.5); PROTEIN,URINE NEGATIVE (NEGATIVE); UROBILINOGEN,URINE 0.2 (NORMAL) E.U./dL (NORMAL)
[2019-01-19 22:55] LABS: CLARITY,URINE CLEAR (CLEAR)
[2019-01-19 23:02] LABS: AMPHETAMINE SCREEN,URINE NEGATIVE (NEGATIVE); BENZODIAZEPINES SCREEN, URINE NEGATIVE (NEGATIVE); COCAINE SCREEN URINE NEGATIVE (NEGATIVE); METHADONE SCREEN, URINE NEGATIVE (NEGATIVE); METHAMPHETAMINES SCREEN, URINE NEGATIVE (NEGATIVE); OPIATE SCREEN, URINE NEGATIVE (NEGATIVE); OXYCODONE SCREEN, URINE NEGATIVE (NEGATIVE); PROPOXYPHENE SCREEN, URINE NEGATIVE (NEGATIVE); TRICYCLIC ANTIDEPRESSANT,URINE NEGATIVE (NEGATIVE)
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
[2019-01-20 03:27] VITALS: BP 112/84
== END 2019-01-20 03:28 | disposition home or self-care (01) ==
LOC: EDUNIT# → ED 19:48
DX: F32.9 Major depressive disorder, single episode, unspecified (principal); F41.9 Anxiety disorder, unspecified; R45.851 Suicidal ideations; F20.9 Schizophrenia, unspecified; F43.10 Post-traumatic stress disorder, unspecified; E11.9 Type 2 diabetes mellitus without complications; Z79.84 Long term (current) use of oral hypoglycemic drugs; F17.200 Nicotine dependence, unspecified, uncomplicated
CPT/HCPCS: 36415; 80048; 80164; 81003; 85025; 99283; A9270; Q3014; 80306; 80307; 80320; 80329; 81001; 87086

== ENCOUNTER 2019-01-31 21:04 | Outpatient (CLI) | payer MEDICARE, MEDICAID | END 2019-01-31 21:05 | disposition critical access hospital (66) | LOC: EMS 21:04 | PROVIDERS: ATTEND Surgery | DX: R10.30 Lower abdominal pain, unspecified (principal); R19.7 Diarrhea, unspecified; R30.9 Painful micturition, unspecified | CPT/HCPCS: A0425; A0429 ==

== ENCOUNTER 2019-01-31 21:21 | Emergency (ER) | payer MEDICARE, MEDICAID ==
[2019-01-31 21:34] LABS: BILIRUBIN,URINE NEGATIVE (NEGATIVE); GLUCOSE, URINE (UA) NEGATIVE (NEGATIVE); KETONES,URINE (UA) TRACE mg/dL (NEGATIVE); LEUKOCYTE ESTERASE, URINE NEGATIVE (NEGATIVE); NITRITE,URINE NEGATIVE (NEGATIVE); OCCULT BLOOD,URINE NEGATIVE (NEGATIVE); PH,URINE 5.5 PH (5.0-7.5); PROTEIN,URINE NEGATIVE (NEGATIVE); UROBILINOGEN,URINE 0.2 (NORMAL) E.U./dL (NORMAL)
[2019-01-31 21:35] LABS: CLARITY,URINE CLEAR (CLEAR)
--- NOTE | 2019-02-01 00:07 | ED Physician Documentation ---
History of Present Illness - Stated complaint Stated Complaint: ABD PAIN - Chief complaint Chief Complaint: UTI - History obtained from History obtained from: Patient - History of Present Illness Timing: How many days ago (3) Pain level now: 9 Improved by: rest Worsened by: movement, palpation - Additonal information Additional information: c/o 3 days of gradual onset, gradually progressive generalized abdominal cramping associated with nausea, vomiting, and diarrhea. Review of Systems Constitutional: denies: Fever, Chills, Sweats Cardiac: reports: Reviewed and negative Respiratory: reports: Reviewed and negative GI: reports: Abdominal Pain, Nausea, Vomiting, Diarrhea : reports: Dysuria. 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 : None HEENT: None Psych: Depression, Bipolar disorder, Schizophrenia, Post traumatic stress disorder Musculoskeletal: None Derm: None - Past Surgical History Past Surgical History: Yes General: Bowel surgery Ortho: Other /ASSEMBLER MOVEMENT: 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 HEENT: Cataracts - Present Medications Home Medications: Ambulatory Orders Medication Instructions Recorded Confirmed metFORMIN [Glucophage] 500 mg ORAL TID 09/06/18 11/22/18 Divalproex ER [Depakote ER] 750 mg PO BID #30 tablet 09/29/18 11/22/18 Mirtazapine [Remeron] 15 mg ORAL QPM #5 tablet 09/29/18 11/22/18 OLANZapine [Olanzapine] 10 mg ORAL BID #10 tablet 09/29/18 11/22/18 Prazosin HCl 1 mg PO QPM #5 capsule 09/29/18 11/22/18 clonazePAM [Clonazepam] 1 mg ORAL BID #10 tablet 09/29/18 11/22/18 Albuterol Sulf [Ventolin Hfa 1 - 2 puffs INH Q4HR PRN #1 inhaler 10/15/18 11/22/18 Inhaler] Ondansetron Odt [Zofran] 4 mg TL Q6H PRN #10 tablet 10/15/18 11/22/18 Promethazine [Phenergan] 25 mg PO Q6H PRN #10 tab 10/22/18 11/22/18 Baclofen 5 mg PO BID 10/28/18 11/22/18 Albuterol 2.5 mg INH Q4H PRN #30 neb 11/11/18 11/22/18 Albuterol Sulf [Ventolin Hfa 2 - 3 puffs INH Q4HR PRN #1 inhaler 11/11/18 11/22/18 Inhaler] Benzonatate [Tessalon Perle] 100 mg PO TID PRN #25 capsule 11/11/18 11/22/18 dexAMETHasone [Decadron] 4 mg PO DAILY #5 tablet 11/11/18 11/22/18 Oseltamivir [Tamiflu] 75 mg PO BID #10 capsule 11/24/18 Benzonatate [Tessalon Perle] 100 mg PO TID PRN #30 capsule 11/26/18 dexAMETHasone [Decadron] 4 mg PO DAILY #5 tablet 11/26/18 Albuterol Sulf [Ventolin Hfa 1 - 2 puffs INH Q4HR PRN #1 inhaler 12/06/18 Inhaler] Doxycycline Hyclate 100 mg PO BID #14 capsule 12/06/18 dexAMETHasone [Decadron] 4 mg PO DAILY #5 tablet 12/06/18 guaiFENesin/CODEINE [Robitussin AC] 10 ml PO Q6H PRN #240 ml 12/06/18 Naproxen 375 mg PO BID #20 tablet 12/31/18 Tramadol HCl 50 mg PO Q6H PRN #15 tablet 12/31/18 Benzonatate [Tessalon Perle] 100 mg PO TID PRN #20 capsule 01/12/19 Tramadol HCl 50 mg PO Q6H PRN #20 tablet 01/12/19 dexAMETHasone [Decadron] 4 mg PO DAILY #5 tablet 01/12/19 LORazepam [Lorazepam] 0.5 - 1 mg PO BID PRN #10 tablet 01/20/19 Diphenoxylate/Atropine [Lomotil] 1 each PO QID PRN #10 tablet 02/01/19 Ondansetron Odt [Zofran] 4 mg TL Q6H PRN #10 tablet 02/01/19 - Allergies Allergies/Adverse Reactions: Allergies Allergy/AdvReac Type Severity Reaction Status Date / Time azithromycin Allergy Severe Hives Verified 12/31/18 20:33 haloperidol Allergy Severe Anaphylaxis Verified 12/31/18 20:33 Penicillins Allergy Severe Anaphylaxis Verified 12/31/18 20:33 amoxicillin [Amoxicillin] Allergy Intermediate Rash Verified 12/31/18 20:33 grapefruit Allergy Intermediate Rash Verified 12/31/18 20:33 iodine Allergy Intermediate Rash Verified 12/31/18 20:33 Sulfa (Sulfonamide Allergy Intermediate Rash Verified 12/31/18 20:33 Antibiotics) haloperidol lactate * AdvReac Rash Verified 12/31/18 20:33 [From Haldol] - Social History Does the pt smoke?: Yes Smoking Status: Current every day smoker Does the pt drink ETOH?: No Does the pt have substance abuse?: No - Immunizations Immunizations are current?: No Immunizations: TDAP >10years/unknown - POLST Patient has POLST: No PD ED PE NORMAL - Vitals Vital signs reviewed: Yes - General General: Alert and oriented X 3, No acute distress, Well developed/nourished - HEENT HEENT: Moist mucous membranes - Cardiac Cardiac: RRR, No murmur - Respiratory Respiratory: No respiratory distress, Clear bilaterally - Abdomen Abdomen: Soft, Non tender, Non distended - Back Back: No CVA TTP - Derm Derm: No rash Results - Vitals Vitals: Vital Signs - 24 hr 01/31/19 02/01/19 21:22 01:43 Temperature 36 C L 36.6 C Heart Rate 97 90 Respiratory 18 18 Rate Blood Pressure 137/102 H 130/90 H O2 Saturation 96 96 Oxygen O2 Source [With Activity] Room air O2 Source [Without Activity] Room air O2 Source Room air - Labs Labs: Laboratory Tests 01/31/19 21:30 Urine Color YELLOW Urine Clarity CLEAR Urine pH 5.5 Ur Specific [place] >=1.030 H Urine Protein NEGATIVE Urine Glucose (UA) NEGATIVE Urine Ketones TRACE Urine Occult Blood NEGATIVE Urine Nitrite NEGATIVE Urine Bilirubin NEGATIVE Urine Urobilinogen 0.2 (NORMAL) Ur Leukocyte Esterase NEGATIVE Ur Microscopic Review NOT INDICATED Urine Culture Comments NOT INDICATED PD MEDICAL DECISION MAKING - ED course Complexity details: reviewed old records, re-evaluated patient, considered differential, d/w patient ED course: Frequent ED visits (1 or more [facility] ED visits every month since January 2018). She is in NAD during ED stay and reports improvement after IM toradol and PO lomotil, zofran, and vicodin. Departure - Departure Disposition: 01 Home, Self Care Clinical Impression: Vomiting and diarrhea Condition: Good Instructions: ED Diet Vomiting Diarrhea, ED Vomiting Diarrhea Nonspecific Ad Follow-Up: Alethea Bolanos ARNP [Primary Care Provider] - (3-4 days if symptoms persist) Prescriptions: Diphenoxylate/Atropine [Lomotil] 1 each PO QID PRN #10 tablet PRN Reason: Diarrhea Ondansetron Odt [Zofran] 4 mg TL Q6H PRN #10 tablet PRN Reason: Nausea / Vomiting Discharge Date/Time: 02/01/19 01:43
[2019-02-01] MEDS ORDERED: DIPHENOX/ATROPINE 2.5/0.025 MG TABLET PO STA ×2 (00:18→01:37)
[2019-02-01] MEDS ORDERED: ONDANSETRON ODT 4 MG TABLET TL STA (00:18)
[2019-02-01] MEDS ORDERED: KETOROLAC 60 MG/2 ML VIAL IM STA (00:18)
[2019-02-01] MEDS ORDERED: HYDROcod/ACETAM 5/325 MG TABLET PO STA (01:37)
[2019-02-01 01:45] VITALS: BP 130/90
== END 2019-02-01 01:43 | disposition home or self-care (01) ==
LOC: EDUNIT# → ED 21:21
DX: R11.2 Nausea with vomiting, unspecified (principal); R19.7 Diarrhea, unspecified; R10.84 Generalized abdominal pain; R30.0 Dysuria; E11.9 Type 2 diabetes mellitus without complications; Z79.84 Long term (current) use of oral hypoglycemic drugs; F17.200 Nicotine dependence, unspecified, uncomplicated
CPT/HCPCS: 81003; 96372; 99283; A9270; Q0162; 81001; 87086

== ENCOUNTER 2019-02-05 17:38 | Outpatient (CLI) | payer MEDICARE, MEDICAID | END 2019-02-05 17:39 | disposition critical access hospital (66) | LOC: EMS 17:38 | PROVIDERS: ATTEND Surgery | DX: R45.851 Suicidal ideations (principal) | CPT/HCPCS: A0425; A0429 ==

== ENCOUNTER 2019-02-05 17:57 | Emergency (ER) | payer MEDICARE, MEDICAID ==
[2019-02-05 18:13] LABS: MUDS CUTOFF CONCENTRATIONS CUTOFF CONC BELOW:
[2019-02-05 18:24] LABS: BILIRUBIN,URINE NEGATIVE (NEGATIVE); CLARITY,URINE CLOUDY (CLEAR); GLUCOSE, URINE (UA) NEGATIVE (NEGATIVE); KETONES,URINE (UA) NEGATIVE (NEGATIVE); LEUKOCYTE ESTERASE, URINE NEGATIVE (NEGATIVE); NITRITE,URINE NEGATIVE (NEGATIVE); OCCULT BLOOD,URINE NEGATIVE (NEGATIVE); PH,URINE 5.5 PH (5.0-7.5); PROTEIN,URINE NEGATIVE (NEGATIVE); UROBILINOGEN,URINE 0.2 (NORMAL) E.U./dL (NORMAL)
[2019-02-05 18:34] LABS: AMPHETAMINE SCREEN,URINE NEGATIVE (NEGATIVE); COCAINE SCREEN URINE NEGATIVE (NEGATIVE); METHAMPHETAMINES SCREEN, URINE NEGATIVE (NEGATIVE); OPIATE SCREEN, URINE NEGATIVE (NEGATIVE)
[2019-02-05 18:35] LABS: BENZODIAZEPINES SCREEN, URINE POSITIVE (NEGATIVE); METHADONE SCREEN, URINE NEGATIVE (NEGATIVE); OXYCODONE SCREEN, URINE NEGATIVE (NEGATIVE); PROPOXYPHENE SCREEN, URINE NEGATIVE (NEGATIVE); TRICYCLIC ANTIDEPRESSANT,URINE NEGATIVE (NEGATIVE)
[2019-02-05 18:36] LABS: EOSINOPHILS % (AUTO) 1.7 %; LYMPHOCYTES % (AUTO) 41.4 %; MEAN CORPUSCULAR HEMOGLOBIN 26.5 pg (27.0-31.0); MEAN CORPUSCULAR HGB CONC 31.2 g/dL (32.0-36.0); MEAN CORPUSCULAR VOLUME 84.8 fL (81.0-99.0); MEAN PLATELET VOLUME 9.6 fL (7.9-10.8); MONOCYTES % (AUTO) 13.1 %; NEUTROPHILS % (AUTO) 42.8 %; PLT - PLATELET COUNT 269 10^3/uL (130-450); RED BLOOD COUNT 4.54 10^6/uL (4.20-5.40); RED CELL DISTRIBUTION WIDTH 18.7 % (12.0-15.0); WHITE BLOOD COUNT 13.4 x10^3/uL (4.8-10.8)
[2019-02-05 18:41] LABS: ABNORMAL LYMPHS % (MANUAL) 0 %; BAND NEUTROPHILS % (MANUAL) 0 %
[2019-02-05 18:45] LABS: AMORPHOUS SEDIMENT,UR Few /LPF; BACTERIA,URINE Many /HPF (None Seen); RBC,URINE 0-5 /HPF (0-5); SQUAMOUS EPITHELIAL CELL,UR MOD Squamous (<= Few)
[2019-02-05 18:53] LABS: ACETAMINOPHEN 19 ug/mL (10-30); ALBUMIN 3.7 g/dL (3.2-5.5); ALBUMIN/GLOBULIN RATIO 1.1 (1.0-2.2); ALKALINE PHOSPHATASE 59 IU/L (42-121); ALT ALANINE AMINOTRANSFERASE 12 IU/L (10-60); AST ASPARTATE AMINOTRANSFERASE 22 IU/L (10-42); BILIRUBIN,TOTAL 0.4 mg/dL (0.2-1.0); BUN - BLOOD UREA NITROGEN 19 mg/dL (6-20); CALCIUM 8.7 mg/dL (8.5-10.3); CARBON DIOXIDE - CO2 22 mmol/L (21-32); CHLORIDE 104 mmol/L (101-111); CREATININE 0.7 mg/dL (0.4-1.0); GFR - MDRD 87 (>89); GLUCOSE 89 mg/dL (70-100); LIPASE 19 U/L (22-51); SALICYLATE < 6.0 mg/dL; SODIUM 137 mmol/L (135-145)
[2019-02-05 18:56] LABS: EOSINOPHILS # (MANUAL) 0.3 10^3/uL (0-0.7); LYMPHOCYTES # (MANUAL) 5.2 10^3/uL (1.5-3.5); LYMPHOCYTES % (MANUAL) 39 %; MONOCYTES # (MANUAL) 1.6 10^3/uL (0.0-1.0); NEUTROPHILS # (MANUAL) 6.3 10^3/uL (1.5-6.6); NEUTROPHILS % (MANUAL) 47 %; PLATELET ESTIMATE, MANUAL NORMAL (130-450,000) (NORMAL); PLATELET MORPHOLOGY NORMAL APPEARANCE (NORMAL)
[2019-02-05 18:57] LABS: DIFFERENTIAL COMMENT MANUAL DIFFERENTIAL
--- NOTE | 2019-02-05 18:59 | ED Physician Documentation ---
PD HPI MHE - Stated complaint Stated Complaint: MHE - Chief complaint Chief Complaint: MHE - History obtained from History obtained from: Patient - History of Present Illness Primary symptom: Suicidal ideation. No: Suicide attempt, Self harm - cut, Off meds Timing - onset: Today (she had ongoing depression and episodic suicidal thoughts, with poor impulse control. So sometimes acts on thoughts in the past. Today she says she does not feel like hurting herself at this time but is having ideations. She feels she needs "something to help me relax until tomorrow" when she has appt with PCP, and is going to ask about antidepressants. She said one of the staff at the care facility she is at thought an antidepressant would be a good idea.) Contributing factors: No: Off meds, Out of meds Similar symptoms before: Diagnosis (depression, bipolar, anxiety) Recently seen: Emergency Dept (often seen in the ER for depression, suicidal ideation, intoxication, self harm and various medical issues, including asthma. She denies current symptoms of breathing.) Review of Systems Constitutional: denies: Fever Nose: denies: Rhinorrhea / runny nose, Congestion Throat: denies: Sore throat Respiratory: denies: Dyspnea, Cough, Wheezing GI: denies: Nausea, Vomiting, Diarrhea : denies: Dysuria, Frequency PD PAST MEDICAL HISTORY - Past Medical History Past Medical History: Yes Cardiovascular: Angina, Other Respiratory: COPD, Pneumonia Neuro: CVA, Seizure disorder Endocrine/Autoimmune: Type 2 diabetes GI: GERD, Hiatal hernia SAUSAGE COOKER: None : None HEENT: None Psych: Depression, Bipolar disorder, Schizophrenia, Post traumatic stress disorder Musculoskeletal: None Derm: None - Past Surgical History Past Surgical History: Yes General: Bowel surgery Ortho: Other /SAUSAGE COOKER: 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 HEENT: Cataracts - Present Medications Home Medications: Ambulatory Orders Medication Instructions Recorded Confirmed metFORMIN [Glucophage] 500 mg ORAL TID 09/06/18 11/22/18 Divalproex ER [Depakote ER] 750 mg PO BID #30 tablet 09/29/18 11/22/18 Mirtazapine [Remeron] 15 mg ORAL QPM #5 tablet 09/29/18 11/22/18 OLANZapine [Olanzapine] 10 mg ORAL BID #10 tablet 09/29/18 11/22/18 Prazosin HCl 1 mg PO QPM #5 capsule 09/29/18 11/22/18 clonazePAM [Clonazepam] 1 mg ORAL BID #10 tablet 09/29/18 11/22/18 Albuterol Sulf [Ventolin Hfa 1 - 2 puffs INH Q4HR PRN #1 inhaler 10/15/18 11/22/18 Inhaler] Ondansetron Odt [Zofran] 4 mg TL Q6H PRN #10 tablet 10/15/18 11/22/18 Promethazine [Phenergan] 25 mg PO Q6H PRN #10 tab 10/22/18 11/22/18 Baclofen 5 mg PO BID 10/28/18 11/22/18 Albuterol 2.5 mg INH Q4H PRN #30 neb 11/11/18 11/22/18 Albuterol Sulf [Ventolin Hfa 2 - 3 puffs INH Q4HR PRN #1 inhaler 11/11/18 11/22/18 Inhaler] Benzonatate [Tessalon Perle] 100 mg PO TID PRN #25 capsule 11/11/18 11/22/18 dexAMETHasone [Decadron] 4 mg PO DAILY #5 tablet 11/11/18 11/22/18 Oseltamivir [Tamiflu] 75 mg PO BID #10 capsule 11/24/18 Benzonatate [Tessalon Perle] 100 mg PO TID PRN #30 capsule 11/26/18 dexAMETHasone [Decadron] 4 mg PO DAILY #5 tablet 11/26/18 Albuterol Sulf [Ventolin Hfa 1 - 2 puffs INH Q4HR PRN #1 inhaler 12/06/18 Inhaler] Doxycycline Hyclate 100 mg PO BID #14 capsule 12/06/18 dexAMETHasone [Decadron] 4 mg PO DAILY #5 tablet 12/06/18 guaiFENesin/CODEINE [Robitussin AC] 10 ml PO Q6H PRN #240 ml 12/06/18 Naproxen 375 mg PO BID #20 tablet 12/31/18 Tramadol HCl 50 mg PO Q6H PRN #15 tablet 12/31/18 Benzonatate [Tessalon Perle] 100 mg PO TID PRN #20 capsule 01/12/19 Tramadol HCl 50 mg PO Q6H PRN #20 tablet 01/12/19 dexAMETHasone [Decadron] 4 mg PO DAILY #5 tablet 01/12/19 LORazepam [Lorazepam] 0.5 - 1 mg PO BID PRN #10 tablet 01/20/19 Diphenoxylate/Atropine [Lomotil] 1 each PO QID PRN #10 tablet 02/01/19 Ondansetron Odt [Zofran] 4 mg TL Q6H PRN #10 tablet 02/01/19 - Allergies Allergies/Adverse Reactions: Allergies Allergy/AdvReac Type Severity Reaction Status Date / Time azithromycin Allergy Severe Hives Verified 02/05/19 18:05 haloperidol Allergy Severe Anaphylaxis Verified 02/05/19 18:05 Penicillins Allergy Severe Anaphylaxis Verified 02/05/19 18:05 amoxicillin [Amoxicillin] Allergy Intermediate Rash Verified 02/05/19 18:05 grapefruit Allergy Intermediate Rash Verified 02/05/19 18:05 iodine Allergy Intermediate Rash Verified 02/05/19 18:05 Sulfa (Sulfonamide Allergy Intermediate Rash Verified 02/05/19 18:05 Antibiotics) haloperidol lactate * AdvReac Rash Verified 02/05/19 18:05 [From Haldol] bee sting Allergy Anaphylaxis Uncoded 02/05/19 18:05 - Social History Does the pt smoke?: Yes Smoking Status: Current every day smoker Does the pt drink ETOH?: No Does the pt have substance abuse?: No - Immunizations Immunizations are current?: No Immunizations: TDAP >10years/unknown - POLST Patient has POLST: No PD ED PE NORMAL - Vitals Vital signs reviewed: Yes - General General: Alert and oriented X 3, No acute distress, Well developed/nourished - Neck Neck: Supple, no meningeal sign, No adenopathy - Cardiac Cardiac: RRR, No murmur - Respiratory Respiratory: Clear bilaterally - Abdomen Abdomen: Soft, Non tender - Derm Derm: Normal color, Warm and dry - Neuro Neuro: Alert and oriented X 3, No motor deficit, Normal speech - Psych Psych: Normal mood, Normal affect Results - Vitals Vitals: Vital Signs - 24 hr 02/05/19 02/05/19 02/05/19 18:00 19:36 20:15 Temperature 36.6 C Heart Rate 103 H 88 87 Respiratory 16 16 14 Rate Blood Pressure 127/75 102/62 101/85 H O2 Saturation 100 98 97 Oxygen O2 Source [With Activity] Room air O2 Source [Without Activity] Room air O2 Source Room air - Labs Labs: Laboratory Tests 02/05/19 02/05/19 02/05/19 18:10 18:21 18:21 WBC 13.4 H RBC 4.54 Hgb 12.0 Hct 38.5 MCV 84.8 MCH 26.5 L MCHC 31.2 L RDW 18.7 H Plt Count 269 MPV 9.6 Neut # (Auto) Not Reportable Lymph # (Auto) Not Reportable Barber # (Auto) Not Reportable Eos # (Auto) Not Reportable Baso # (Auto) Not Reportable Absolute Nucleated RBC Not Reportable Total Counted 100 Band Neuts % (Manual) 0 Abnorm Lymph % (Manual) 0 Nucleated RBC % Not Reportable Neutrophils # (Manual) 6.3 Lymphocytes # (Manual) 5.2 H Monocytes # (Manual) 1.6 H Eosinophils # (Manual) 0.3 Basophils # (Manual) 0.0 Differential Comment MANUAL DIFFERENTIAL WBC Morphology NORMAL APPEARANCE Platelet Estimate NORMAL (130-450,000) Platelet Morphology NORMAL APPEARANCE RBC Morph Micro Appear 1+ HYPOCHROMASIA Sodium 137 Potassium 3.7 Chloride 104 Carbon Dioxide 22 Anion Gap 11.0 BUN 19 Creatinine 0.7 Estimated GFR (MDRD) 87 L Glucose 89 Calcium 8.7 Total Bilirubin 0.4 AST 22 ALT 12 Alkaline Phosphatase 59 Total Protein 7.0 Albumin 3.7 Globulin 3.3 Albumin/Globulin Ratio 1.1 Lipase 19 L TSH Urine Color YELLOW Urine Clarity CLOUDY Urine pH 5.5 Ur Specific [place] 1.025 Urine Protein NEGATIVE Urine Glucose (UA) NEGATIVE Urine Ketones NEGATIVE Urine Occult Blood NEGATIVE Urine Nitrite NEGATIVE Urine Bilirubin NEGATIVE Urine Urobilinogen 0.2 (NORMAL) Ur Leukocyte Esterase NEGATIVE Urine RBC 0-5 Urine WBC 0-3 Ur Squamous Epith Cells MOD Squamous H Amorphous Sediment Few Urine Bacteria Many H Ur Microscopic Review INDICATED Urine Culture Comments NOT INDICATED Salicylates < 6.0 Urine Opiates Screen NEGATIVE Ur Oxycodone Screen NEGATIVE Urine Methadone Screen NEGATIVE Ur Propoxyphene Screen NEGATIVE Acetaminophen 19 Ur Barbiturates Screen NEGATIVE Ur Tricyclics Screen NEGATIVE Ur Phencyclidine Scrn NEGATIVE Ur Amphetamine Screen NEGATIVE U Methamphetamines Scrn NEGATIVE U Benzodiazepines Scrn POSITIVE H Urine Cocaine Screen NEGATIVE U Cannabinoids Screen NEGATIVE Ethyl Alcohol < 5.0 02/05/19 18:21 WBC RBC Hgb Hct MCV MCH MCHC RDW Plt Count MPV Neut # (Auto) Lymph # (Auto) Barber # (Auto) Eos # (Auto) Baso # (Auto) Absolute Nucleated RBC Total Counted Band Neuts % (Manual) Abnorm Lymph % (Manual) Nucleated RBC % Neutrophils # (Manual) Lymphocytes # (Manual) Monocytes # (Manual) Eosinophils # (Manual) Basophils # (Manual) Differential Comment WBC Morphology Platelet Estimate Platelet Morphology RBC Morph Micro Appear Sodium Potassium Chloride Carbon Dioxide Anion Gap BUN Creatinine Estimated GFR (MDRD) Glucose Calcium Total Bilirubin AST ALT Alkaline Phosphatase Total Protein Albumin Globulin Albumin/Globulin Ratio Lipase TSH 4.33 Urine Color Urine Clarity Urine pH Ur Specific [place] Urine Protein Urine Glucose (UA) Urine Ketones Urine Occult Blood Urine Nitrite Urine Bilirubin Urine Urobilinogen Ur Leukocyte Esterase Urine RBC Urine WBC Ur Squamous Epith Cells Amorphous Sediment Urine Bacteria Ur Microscopic Review Urine Culture Comments Salicylates Urine Opiates Screen Ur Oxycodone Screen Urine Methadone Screen Ur Propoxyphene Screen Acetaminophen Ur Barbiturates Screen Ur Tricyclics Screen Ur Phencyclidine Scrn Ur Amphetamine Screen U Methamphetamines Scrn U Benzodiazepines Scrn Urine Cocaine Screen U Cannabinoids Screen Ethyl Alcohol PD MEDICAL DECISION MAKING - ED course Complexity details: considered differential (she felt she needed just some med to help her relax more into tomorrow when has appt with PCP. Wants to consider antidepressant. I talked with her and considered extra dose of Ativan, or also current articles about low dose ketamine (0.1-0.3 mg/kg) for anxiolysis and depression. She said she would like to try that. Gave her approx 0.2 mg/kg IM and she said she was feeling more relaxed and able to head back home, verbally promising to call for help or Crisis Line if she needed and not to hurt herself. ), d/w patient Departure - Departure Disposition: Home, Self Care Clinical Impression: Passive suicidal ideations Depression Qualifiers: Depression Type: dysthymia Qualified Code(s): F34.1 - Dysthymic disorder Condition: Stable Record reviewed to determine appropriate education?: Yes Instructions: ED Depression Follow-Up: Alethea Bolanos ARNP [Primary Care Provider] - Comments: Follow-up with your primary care tomorrow as planned. He can discuss with her the idea of adding an antidepressant. For now continue usual medications. Stay well-hydrated no alcohol. Discharge Date/Time: 02/05/19 20:20
[2019-02-05] MEDS ORDERED: KETAMINE 500 MG/10 ML VIAL IM STA (19:16)
[2019-02-05 20:16] VITALS: BP 101/85
== END 2019-02-05 20:20 | disposition home or self-care (01) ==
LOC: EDUNIT# → ED 17:57
DX: F34.1 Dysthymic disorder (principal); R45.851 Suicidal ideations; F31.9 Bipolar disorder, unspecified; F20.9 Schizophrenia, unspecified; E11.9 Type 2 diabetes mellitus without complications; Z79.84 Long term (current) use of oral hypoglycemic drugs; F17.200 Nicotine dependence, unspecified, uncomplicated
CPT/HCPCS: 36415; 80053; 80306; 80307; 80320; 80329; 81001; 81003; 83690; 84443; 85025; 87086; 96372; 99283; 99284

== ENCOUNTER 2019-02-07 08:00 | Outpatient (CLI) | payer MEDICARE, MEDICAID ==
[2019-02-07 12:29] LABS: BASOPHILS # (AUTO) 0.1 10^3/uL (0.0-0.1); BASOPHILS % (AUTO) 0.7 %; EOSINOPHILS # (AUTO) 0.3 10^3/uL (0.0-0.7); HGB - HEMOGLOBIN 12.3 g/dL (12.0-16.0); LYMPHOCYTES # (AUTO) 4.3 10^3/uL (1.5-3.5); LYMPHOCYTES % (AUTO) 39.8 %; MEAN CORPUSCULAR HEMOGLOBIN 26.6 pg (27.0-31.0); MEAN CORPUSCULAR HGB CONC 31.7 g/dL (32.0-36.0); MEAN CORPUSCULAR VOLUME 83.9 fL (81.0-99.0); MEAN PLATELET VOLUME 10.2 fL (7.9-10.8); MONOCYTES # (AUTO) 1.7 10^3/uL (0.0-1.0); MONOCYTES % (AUTO) 15.8 %; NEUTROPHILS # (AUTO) 4.4 10^3/uL (1.5-6.6); NEUTROPHILS % (AUTO) 40.7 %; PLT - PLATELET COUNT 346 10^3/uL (130-450); RED BLOOD COUNT 4.64 10^6/uL (4.20-5.40); RED CELL DISTRIBUTION WIDTH 18.5 % (12.0-15.0); WHITE BLOOD COUNT 10.8 x10^3/uL (4.8-10.8)
== END 2019-02-07 23:59 | disposition home or self-care (01) ==
LOC: LAB.N 08:00
PROVIDERS: ATTEND Nurse Practitioner Gerontology
DX: J44.9 Chronic obstructive pulmonary disease, unspecified (principal)
CPT/HCPCS: 36415; 85025

== ENCOUNTER 2019-02-07 11:07 | Outpatient (CLI) | payer MEDICARE, MEDICAID | END 2019-02-07 11:08 | disposition critical access hospital (66) | LOC: EMS 11:07 | PROVIDERS: ATTEND Surgery | DX: Z76.89 Persons encountering health services in other specified circumstances (principal) | CPT/HCPCS: A0425; A0429 ==

== ENCOUNTER 2019-02-07 11:26 | Emergency (ER) | payer MEDICARE, MEDICAID ==
[2019-02-07 11:34] VITALS: BP 123/81
[2019-02-07] MEDS ORDERED: predniSONE 20 MG TABLET PO STA (11:47)
[2019-02-07] MEDS ORDERED: IPRATROPIUM/ALBUTEROL 3 ML NEB INH STA (11:47)
--- NOTE | 2019-02-07 12:14 | XRAY Report ---
Reason: cough Procedure Date: 02/07/2019 Accession Number: [id number] / [id number] Procedure: XR - Chest 2 View X-Ray CPT Code: 52398 FULL RESULT: EXAM: CHEST RADIOGRAPHY EXAM DATE: 02/07/2019 11:57 AM. CLINICAL HISTORY: Cough. COMPARISON: CHEST 2 VIEW 01/12/2019 6:40 PM. TECHNIQUE: 2 views. FINDINGS: Lungs/Pleura: Right middle lobe infiltrate. Peribronchial thickening bilaterally. Left basilar atelectasis or infiltrate. Decreased lung volumes. No effusion. No pneumothorax. Mediastinum: Heart and mediastinal contours are unremarkable. Other: None. IMPRESSION: 1. Right middle lobe infiltrate. 2. Left basal infiltrate or atelectasis. RADIA
--- NOTE | 2019-02-07 12:29 | ED Physician Documentation ---
History of Present Illness - Stated complaint Stated Complaint: CHEST X RAY - Chief complaint Chief Complaint: Resp - History obtained from History obtained from: Patient - History of Present Illness Timing: How many days ago (2) Severity Comments: mild sob, wheezing, increased cough productive of yellow sputum Quality: cough productive of yellow sputum Radiates to: no pain Improved by: nothing Worsened by: nothing Associated symptoms: no fever. reports cough, wheezing and sob - Treatment prior to arrival Treatment prior to arrival: none Review of Systems Ten Systems: 10 systems reviewed and negative Constitutional: denies: Fever, Chills Cardiac: denies: Chest pain / pressure, Palpitations Respiratory: reports: Dyspnea, Cough, Wheezing GI: denies: Abdominal Pain, Nausea, Vomiting Skin: denies: Rash Neurologic: reports: Reviewed and negative PD PAST MEDICAL HISTORY - Past Medical History Past Medical History: Yes Cardiovascular: Angina, Other Respiratory: COPD, Pneumonia Neuro: CVA, Seizure disorder Endocrine/Autoimmune: Type 2 diabetes GI: GERD, Hiatal hernia MASTER ESTHETICIAN: None : None HEENT: None Psych: Depression, Bipolar disorder, Schizophrenia, Post traumatic stress disorder Musculoskeletal: None Derm: None - Past Surgical History Past Surgical History: Yes General: Bowel surgery Ortho: Other /MASTER ESTHETICIAN: 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 HEENT: Cataracts - Present Medications Home Medications: Ambulatory Orders Medication Instructions Recorded Confirmed metFORMIN [Glucophage] 500 mg ORAL TID 09/06/18 11/22/18 Divalproex ER [Depakote ER] 750 mg PO BID #30 tablet 09/29/18 11/22/18 Mirtazapine [Remeron] 15 mg ORAL QPM #5 tablet 09/29/18 11/22/18 OLANZapine [Olanzapine] 10 mg ORAL BID #10 tablet 09/29/18 11/22/18 Prazosin HCl 1 mg PO QPM #5 capsule 09/29/18 11/22/18 clonazePAM [Clonazepam] 1 mg ORAL BID #10 tablet 09/29/18 11/22/18 Albuterol Sulf [Ventolin Hfa 1 - 2 puffs INH Q4HR PRN #1 inhaler 10/15/18 11/22/18 Inhaler] Ondansetron Odt [Zofran] 4 mg TL Q6H PRN #10 tablet 10/15/18 11/22/18 Promethazine [Phenergan] 25 mg PO Q6H PRN #10 tab 10/22/18 11/22/18 Baclofen 5 mg PO BID 10/28/18 11/22/18 Albuterol 2.5 mg INH Q4H PRN #30 neb 11/11/18 11/22/18 Albuterol Sulf [Ventolin Hfa 2 - 3 puffs INH Q4HR PRN #1 inhaler 11/11/18 11/22/18 Inhaler] Benzonatate [Tessalon Perle] 100 mg PO TID PRN #25 capsule 11/11/18 11/22/18 dexAMETHasone [Decadron] 4 mg PO DAILY #5 tablet 11/11/18 11/22/18 Oseltamivir [Tamiflu] 75 mg PO BID #10 capsule 11/24/18 Benzonatate [Tessalon Perle] 100 mg PO TID PRN #30 capsule 11/26/18 dexAMETHasone [Decadron] 4 mg PO DAILY #5 tablet 11/26/18 Albuterol Sulf [Ventolin Hfa 1 - 2 puffs INH Q4HR PRN #1 inhaler 12/06/18 Inhaler] Doxycycline Hyclate 100 mg PO BID #14 capsule 12/06/18 dexAMETHasone [Decadron] 4 mg PO DAILY #5 tablet 12/06/18 guaiFENesin/CODEINE [Robitussin AC] 10 ml PO Q6H PRN #240 ml 12/06/18 Naproxen 375 mg PO BID #20 tablet 12/31/18 Tramadol HCl 50 mg PO Q6H PRN #15 tablet 12/31/18 Benzonatate [Tessalon Perle] 100 mg PO TID PRN #20 capsule 01/12/19 Tramadol HCl 50 mg PO Q6H PRN #20 tablet 01/12/19 dexAMETHasone [Decadron] 4 mg PO DAILY #5 tablet 01/12/19 LORazepam [Lorazepam] 0.5 - 1 mg PO BID PRN #10 tablet 01/20/19 Diphenoxylate/Atropine [Lomotil] 1 each PO QID PRN #10 tablet 02/01/19 Ondansetron Odt [Zofran] 4 mg TL Q6H PRN #10 tablet 02/01/19 Doxycycline Hyclate 100 mg PO BID #20 capsule 02/07/19 predniSONE [Prednisone] 40 mg PO DAILY #10 tablet 02/07/19 - Allergies Allergies/Adverse Reactions: Allergies Allergy/AdvReac Type Severity Reaction Status Date / Time azithromycin Allergy Severe Hives Verified 02/07/19 11:34 haloperidol Allergy Severe Anaphylaxis Verified 02/07/19 11:34 Penicillins Allergy Severe Anaphylaxis Verified 02/07/19 11:34 amoxicillin [Amoxicillin] Allergy Intermediate Rash Verified 02/07/19 11:34 grapefruit Allergy Intermediate Rash Verified 02/07/19 11:34 iodine Allergy Intermediate Rash Verified 02/07/19 11:34 Sulfa (Sulfonamide Allergy Intermediate Rash Verified 02/07/19 11:34 Antibiotics) haloperidol lactate * AdvReac Rash Verified 02/07/19 11:34 [From Haldol] bee sting Allergy Anaphylaxis Uncoded 02/07/19 11:34 - Social History Does the pt smoke?: Yes Smoking Status: Current every day smoker Does the pt drink ETOH?: No Does the pt have substance abuse?: No - Immunizations Immunizations are current?: No Immunizations: TDAP >10years/unknown - POLST Patient has POLST: No PD ED PE NORMAL - Vitals Vital signs reviewed: Yes - General General: Alert and oriented X 3, No acute distress - HEENT HEENT: Atraumatic - Neck Neck: Supple, no meningeal sign - Cardiac Cardiac: RRR, No murmur, No gallop, No rub, Strong equal pulses - Respiratory Respiratory: No respiratory distress, Other (bilateral diffuse wheezing, speaking in full sentences however and comfortable appearing) - Abdomen Abdomen: Soft, Non tender, Non distended - Female Female : Deferred - Rectal Rectal: Deferred - Derm Derm: Normal color, Warm and dry - Extremities Extremities: No deformity - Neuro Neuro: Alert and oriented X 3 Eye Opening: Spontaneous Motor: Obeys Commands Verbal: Oriented GCS Score: 15 - Psych Psych: Normal mood, Normal affect Results - Vitals Vitals: Vital Signs - 24 hr 02/07/19 02/07/19 11:31 12:10 Temperature 36.1 C L Heart Rate 77 70 Respiratory 18 14 Rate Blood Pressure 123/81 H O2 Saturation 96 Oxygen O2 Source [With Activity] Room air O2 Source [Without Activity] Room air O2 Source Room air - Rads (name of study) No standard instances Radiology: Final report received (Pneumonia present ) PD MEDICAL DECISION MAKING - ED course Complexity details: reviewed old records, reviewed results, re-evaluated patient, considered differential, d/w patient ED course: 54 y/o F with wheezing, sob, cough, ongoing for a couple of days. Hx of COPD, sent to ED for CXR by her nursing facility doctor. Well appearing, comfortable, wheezing on exam, afebrile. DDx includes COPD exacerbation, URI, pneumonia, bronchitis, CHF, pleural effusion. CXR shows likely pneumonia. likely community acquired as pt denies recent hospitalization. Will start doxycycline and meds for COPD exacerbation - course of steroids. Pt has inhaler at home.. Her O2 sats are normal and she is stable for outpt f/u and discharge. Departure - Departure Disposition: Home, Self Care Clinical Impression: Mild chronic obstructive pulmonary disease Pneumonia Qualifiers: Pneumonia type: due to unspecified organism Laterality: right Lung location: middle lobe of lung Qualified Code(s): J18.1 - Lobar pneumonia, unspecified organism Condition: Stable Instructions: Pneumonia Dc Follow-Up: your,doctor [Other] - Within 1 week Prescriptions: Doxycycline Hyclate 100 mg PO BID #20 capsule predniSONE [Prednisone] 40 mg PO DAILY #10 tablet Comments: Your chest xray showed a possible pneumonia. Start the prescribed antibiotics and the course of prescribed steroids. follow up with your regular doctor. Return to the ED if worsening sob or new concerns.
[2019-02-07] MEDS ORDERED: DOXYCYCLINE 100 MG TABLET PO STA (12:30)
== END 2019-02-07 12:41 | disposition home or self-care (01) ==
LOC: EDUNIT# → ED 11:26
DX: J18.1 Lobar pneumonia, unspecified organism (principal); J44.9 Chronic obstructive pulmonary disease, unspecified; E11.9 Type 2 diabetes mellitus without complications; Z79.84 Long term (current) use of oral hypoglycemic drugs; F17.200 Nicotine dependence, unspecified, uncomplicated
CPT/HCPCS: 36415; 71046; 85025; 94640; 99283; A9270; J7512

== ENCOUNTER 2019-02-16 17:55 | Outpatient (CLI) | payer MEDICARE, MEDICAID | END 2019-02-16 17:56 | disposition critical access hospital (66) | LOC: EMS 17:55 | PROVIDERS: ATTEND Surgery | DX: R51 Headache (principal); R05 Cough | CPT/HCPCS: A0425; A0429 ==

== ENCOUNTER 2019-02-16 18:13 | Emergency (ER) | payer MEDICARE, MEDICAID ==
[2019-02-16 19:35] LABS: BASOPHILS # (AUTO) 0.1 10^3/uL (0.0-0.1); BASOPHILS % (AUTO) 0.9 %; EOSINOPHILS # (AUTO) 0.4 10^3/uL (0.0-0.7); EOSINOPHILS % (AUTO) 3.5 %; HGB - HEMOGLOBIN 11.7 g/dL (12.0-16.0); LYMPHOCYTES % (AUTO) 32.7 %; MEAN CORPUSCULAR HEMOGLOBIN 26.7 pg (27.0-31.0); MEAN CORPUSCULAR HGB CONC 31.7 g/dL (32.0-36.0); MEAN CORPUSCULAR VOLUME 84.1 fL (81.0-99.0); MONOCYTES # (AUTO) 1.5 10^3/uL (0.0-1.0); MONOCYTES % (AUTO) 12.4 %; NEUTROPHILS # (AUTO) 6.2 10^3/uL (1.5-6.6); NEUTROPHILS % (AUTO) 50.5 %; PLT - PLATELET COUNT 366 10^3/uL (130-450); RED BLOOD COUNT 4.38 10^6/uL (4.20-5.40); RED CELL DISTRIBUTION WIDTH 19.2 % (12.0-15.0); WHITE BLOOD COUNT 12.2 x10^3/uL (4.8-10.8)
[2019-02-16 19:44] LABS: ALBUMIN 3.6 g/dL (3.2-5.5); ALBUMIN/GLOBULIN RATIO 1.2 (1.0-2.2); BILIRUBIN,TOTAL 0.7 mg/dL (0.2-1.0); CREATININE 0.7 mg/dL (0.4-1.0); TOTAL PROTEIN 6.7 g/dL (6.7-8.2)
[2019-02-16 19:52] LABS: CALCIUM 8.8 mg/dL (8.5-10.3)
[2019-02-16 19:58] LABS: PLATELET MORPHOLOGY 1+ GIANT PLATELETS (NORMAL)
[2019-02-16 19:59] LABS: PLATELET ESTIMATE, MANUAL NORMAL (130-450,000) (NORMAL)
[2019-02-16 20:58] LABS: BILIRUBIN,URINE NEGATIVE (NEGATIVE); GLUCOSE, URINE (UA) NEGATIVE (NEGATIVE); KETONES,URINE (UA) TRACE mg/dL (NEGATIVE); LEUKOCYTE ESTERASE, URINE NEGATIVE (NEGATIVE); NITRITE,URINE NEGATIVE (NEGATIVE); OCCULT BLOOD,URINE NEGATIVE (NEGATIVE); PROTEIN,URINE NEGATIVE (NEGATIVE); UROBILINOGEN,URINE 0.2 (NORMAL) E.U./dL (NORMAL)
[2019-02-16 21:10] LABS: CLARITY,URINE CLEAR (CLEAR)
--- NOTE | 2019-02-16 21:53 | ED Physician Documentation ---
PD HPI HEADACHE - Stated complaint Stated Complaint: MIGRAINE - Chief complaint Chief Complaint: General - History obtained from History obtained from: Patient - History of Present Illness Timing - onset: Today Timing - onset during: Light activity Timing - details: Gradual onset, Still present Worst headache ever?: No: Worst headache ever? Location: Front, Left Quality: Throbbing, Aching Associated symptoms: Nausea. No: Fever, Stiff neck, Weakness, Numbness Improved by: No: Meds (tylenol and zofran did not help) Worsened by: Light Contributing factors: No: Recent illness, Trauma Similar symptoms before: Diagnosis (migraines intermittently, though more frequent lately.) Recently seen: Emergency Dept Review of Systems Constitutional: denies: Fever, Chills, Myalgias Throat: denies: Sore throat Respiratory: denies: Cough GI: reports: Nausea, Vomiting. denies: Abdominal Pain Musculoskeletal: reports: Extremity swelling (for a week, both legs from knees to feet.) Neurologic: reports: Generalized weakness, Headache. denies: Focal weakness, Numbness, Altered mental status, Head injury PD PAST MEDICAL HISTORY - Past Medical History Cardiovascular: Angina, Other (no history of CHF ) Respiratory: COPD, Pneumonia Neuro: CVA, Migraines, Seizure disorder Endocrine/Autoimmune: Type 2 diabetes GI: GERD, Hiatal hernia RELIABILITY SPECIALIST: None : None HEENT: None Psych: Depression, Bipolar disorder, Schizophrenia, Post traumatic stress disorder Musculoskeletal: None Derm: None - Past Surgical History Past Surgical History: Yes General: Bowel surgery Ortho: Other /RELIABILITY SPECIALIST: 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 HEENT: Cataracts - Present Medications Home Medications: Ambulatory Orders Medication Instructions Recorded Confirmed metFORMIN [Glucophage] 500 mg ORAL TID 09/06/18 11/22/18 Divalproex ER [Depakote ER] 750 mg PO BID #30 tablet 09/29/18 11/22/18 Mirtazapine [Remeron] 15 mg ORAL QPM #5 tablet 09/29/18 11/22/18 OLANZapine [Olanzapine] 10 mg ORAL BID #10 tablet 09/29/18 11/22/18 Prazosin HCl 1 mg PO QPM #5 capsule 09/29/18 11/22/18 clonazePAM [Clonazepam] 1 mg ORAL BID #10 tablet 09/29/18 11/22/18 Albuterol Sulf [Ventolin Hfa 1 - 2 puffs INH Q4HR PRN #1 inhaler 10/15/18 11/22/18 Inhaler] Ondansetron Odt [Zofran] 4 mg TL Q6H PRN #10 tablet 10/15/18 11/22/18 Promethazine [Phenergan] 25 mg PO Q6H PRN #10 tab 10/22/18 11/22/18 Baclofen 5 mg PO BID 10/28/18 11/22/18 Albuterol 2.5 mg INH Q4H PRN #30 neb 11/11/18 11/22/18 Albuterol Sulf [Ventolin Hfa 2 - 3 puffs INH Q4HR PRN #1 inhaler 11/11/18 11/22/18 Inhaler] Benzonatate [Tessalon Perle] 100 mg PO TID PRN #25 capsule 11/11/18 11/22/18 dexAMETHasone [Decadron] 4 mg PO DAILY #5 tablet 11/11/18 11/22/18 Oseltamivir [Tamiflu] 75 mg PO BID #10 capsule 11/24/18 Benzonatate [Tessalon Perle] 100 mg PO TID PRN #30 capsule 11/26/18 dexAMETHasone [Decadron] 4 mg PO DAILY #5 tablet 11/26/18 Albuterol Sulf [Ventolin Hfa 1 - 2 puffs INH Q4HR PRN #1 inhaler 12/06/18 Inhaler] Doxycycline Hyclate 100 mg PO BID #14 capsule 12/06/18 dexAMETHasone [Decadron] 4 mg PO DAILY #5 tablet 12/06/18 guaiFENesin/CODEINE [Robitussin AC] 10 ml PO Q6H PRN #240 ml 12/06/18 Naproxen 375 mg PO BID #20 tablet 12/31/18 Tramadol HCl 50 mg PO Q6H PRN #15 tablet 12/31/18 Benzonatate [Tessalon Perle] 100 mg PO TID PRN #20 capsule 01/12/19 Tramadol HCl 50 mg PO Q6H PRN #20 tablet 01/12/19 dexAMETHasone [Decadron] 4 mg PO DAILY #5 tablet 01/12/19 LORazepam [Lorazepam] 0.5 - 1 mg PO BID PRN #10 tablet 01/20/19 Diphenoxylate/Atropine [Lomotil] 1 each PO QID PRN #10 tablet 02/01/19 Ondansetron Odt [Zofran] 4 mg TL Q6H PRN #10 tablet 02/01/19 Doxycycline Hyclate 100 mg PO BID #20 capsule 02/07/19 predniSONE [Prednisone] 40 mg PO DAILY #10 tablet 02/07/19 - Allergies Allergies/Adverse Reactions: Allergies Allergy/AdvReac Type Severity Reaction Status Date / Time azithromycin Allergy Severe Hives Verified 02/07/19 11:34 haloperidol Allergy Severe Anaphylaxis Verified 02/07/19 11:34 Penicillins Allergy Severe Anaphylaxis Verified 02/07/19 11:34 amoxicillin [Amoxicillin] Allergy Intermediate Rash Verified 02/07/19 11:34 grapefruit Allergy Intermediate Rash Verified 02/07/19 11:34 iodine Allergy Intermediate Rash Verified 02/07/19 11:34 Sulfa (Sulfonamide Allergy Intermediate Rash Verified 02/07/19 11:34 Antibiotics) shellfish derived Allergy Unknown Verified 02/16/19 18:27 haloperidol lactate * AdvReac Rash Verified 02/07/19 11:34 [From Haldol] bee sting Allergy Anaphylaxis Uncoded 02/07/19 11:34 - Social History Does the pt smoke?: Yes Smoking Status: Current every day smoker Does the pt drink ETOH?: No Does the pt have substance abuse?: No - Immunizations Immunizations are current?: No Immunizations: TDAP >10years/unknown - POLST Patient has POLST: No PD ED PE NORMAL - Vitals Vital signs reviewed: Yes - General General: Alert and oriented X 3, No acute distress, Well developed/nourished - HEENT HEENT: Atraumatic, Pharynx benign - Neck Neck: Supple, no meningeal sign, No adenopathy - Cardiac Cardiac: RRR, No murmur - Respiratory Respiratory: No respiratory distress, Clear bilaterally - Abdomen Abdomen: Soft, Non tender - Back Back: No CVA TTP - Derm Derm: Normal color, Warm and dry - Extremities Extremities: No calf tenderness / cord, Other (1+ edema pitting in both lower legs. No redness. 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, No motor deficit, No sensory deficit, Normal speech Eye Opening: Spontaneous Motor: Obeys Commands Verbal: Oriented GCS Score: 15 Results - Vitals Vitals: Vital Signs - 24 hr 02/16/19 02/16/19 02/16/19 18:22 19:57 21:51 Temperature 36.7 C 36.8 C 36.3 C L Heart Rate 76 75 73 Respiratory 16 16 16 Rate Blood Pressure 122/76 120/68 126/73 O2 Saturation 94 96 94 02/16/19 02/16/19 02/17/19 23:00 23:14 01:00 Temperature 36.5 C Heart Rate 69 72 Respiratory 16 16 Rate Blood Pressure 147/68 H 138/71 H O2 Saturation 93 94 Oxygen O2 Source [With Activity] Room air O2 Source [Without Activity] Room air O2 Source Room air - Labs Labs: Laboratory Tests 02/16/19 02/16/19 02/16/19 18:30 18:40 18:40 WBC 12.2 H RBC 4.38 Hgb 11.7 L Hct 36.9 L MCV 84.1 MCH 26.7 L MCHC 31.7 L RDW 19.2 H Plt Count 366 MPV 9.0 Neut # (Auto) 6.2 Lymph # (Auto) 4.[address] # (Auto) 1.5 H Eos # (Auto) 0.4 Baso # (Auto) 0.1 Absolute Nucleated RBC 0.01 Nucleated RBC % 0.1 Manual Slide Review Indicated Platelet Estimate NORMAL (130-450,000) Platelet Morphology 1+ GIANT PLATELETS RBC Morph Micro Appear 1+ TEARDROP CELLS Sodium Potassium Chloride Carbon Dioxide Anion Gap BUN Creatinine Estimated GFR (MDRD) Glucose Calcium Magnesium 2.2 Total Bilirubin AST ALT Alkaline Phosphatase Troponin I B-Natriuretic Peptide Total Protein Albumin Globulin Albumin/Globulin Ratio Lipase Urine Color YELLOW Urine Clarity CLEAR Urine pH 6.0 Ur Specific [place] 1.020 Urine Protein NEGATIVE Urine Glucose (UA) NEGATIVE Urine Ketones TRACE Urine Occult Blood NEGATIVE Urine Nitrite NEGATIVE Urine Bilirubin NEGATIVE Urine Urobilinogen 0.2 (NORMAL) Ur Leukocyte Esterase NEGATIVE Ur Microscopic Review NOT INDICATED Urine Culture Comments NOT INDICATED 02/16/19 02/16/19 02/16/19 18:40 18:40 19:30 WBC RBC Hgb Hct MCV MCH MCHC RDW Plt Count MPV Neut # (Auto) Lymph # (Auto) [place] # (Auto) Eos # (Auto) Baso # (Auto) Absolute Nucleated RBC Nucleated RBC % Manual Slide Review Platelet Estimate Platelet Morphology RBC Morph Micro Appear Sodium 142 Potassium 4.2 Chloride 108 Carbon Dioxide 25 Anion Gap 9.0 BUN 18 Creatinine 0.7 Estimated GFR (MDRD) 87 L Glucose 95 Calcium 8.8 Magnesium Total Bilirubin 0.7 AST 19 ALT 15 Alkaline Phosphatase 53 Troponin I < 0.04 B-Natriuretic Peptide 102 H Total Protein 6.7 Albumin 3.6 Globulin 3.1 Albumin/Globulin Ratio 1.2 Lipase 19 L Urine Color Urine Clarity Urine pH Ur Specific [place] Urine Protein Urine Glucose (UA) Urine Ketones Urine Occult Blood Urine Nitrite Urine Bilirubin Urine Urobilinogen Ur Leukocyte Esterase Ur Microscopic Review Urine Culture Comments PD MEDICAL DECISION MAKING - ED course Complexity details: re-evaluated patient (headache improved with IV meds. Has history of migraines and no red flags. Hard to tell with her if just secondary gain of some pain meds, but will assume migraines. They leg edema is new for her but not looking like CHF generally, so presume is dependent edema, though she says she rests with her legs elevated. No new meds to likely have cause (such as calcium tiffanie).), considered differential, d/w patient Departure - Departure Disposition: 01 Home, Self Care Clinical Impression: Bilateral leg edema Migraine Qualifiers: Migraine type: without aura Status migrainosus presence: without status migrainosus Intractability: not intractable Qualified Code(s): G43.009 - Migraine without aura, not intractable, without status migrainosus Clinical Impression: (Ruled Out): CHF (congestive heart failure) Condition: Stable Record reviewed to determine appropriate education?: Yes Instructions: ED Edema Legs Bilateral Comments: Your kidney function and chest x-ray and other blood tests are good and so it does not look like your leg swelling is from fluid overload or heart failure. Presume its a local effect on the legs and have you continue elevating them when rested and adding in compressive stockings during the day for the next couple weeks. Regarding your migraine, stay well-hydrated and use your usual medications at home. Tylenol if needed for headache and Zofran if needed for nausea. Return as needed. Discharge Date/Time: 02/17/19 02:48
[2019-02-16] MEDS ORDERED: diphenhydrAMINE INJ 50 MG/ML VIAL IVP STA (22:33)
[2019-02-16] MEDS ORDERED: KETOROLAC 15 MG/ML VIAL IVP STA (22:33)
[2019-02-16] MEDS ORDERED: PROCHLORPERAZINE 10 MG/2 ML VIAL IVP STA (22:33)
[2019-02-16] MEDS ORDERED: MORPHINE 10 MG/ML VIAL IVP STA (22:34)
--- NOTE | 2019-02-16 22:52 | XRAY Report ---
Reason: leg edema, some dyspnea Procedure Date: 02/16/2019 Accession Number: [id number] / [id number] Procedure: XR - Chest 1 View X-Ray CPT Code: 13487 FULL RESULT: EXAM: CHEST RADIOGRAPHY EXAM DATE: 02/16/2019 10:38 PM. CLINICAL HISTORY: Leg edema, some dyspnea. COMPARISON: CHEST 2 VIEW 02/07/2019 11:57 AM. TECHNIQUE: 1 view. FINDINGS: Lungs/Pleura: No alveolar consolidation or pleural effusion seen. Mild bronchial wall thickening. No pneumothorax. Mediastinum: Within exam limitations, the cardiomediastinal contour is normal. Other: None. IMPRESSION: 1. Mild bronchial wall thickening. This can be seen with bronchitis or reactive airways disease. RADIA
[2019-02-17] MEDS ORDERED: HYDROmorphone 1 MG/ML CARPUJECT IVP STA (00:24)
[2019-02-17 01:22] VITALS: BP 138/71
== END 2019-02-17 02:48 | disposition home or self-care (01) ==
LOC: ED 18:13
DX: G43.009 Migraine without aura, not intractable, without status migrainosus (principal); R60.0 Localized edema; E11.9 Type 2 diabetes mellitus without complications; Z79.84 Long term (current) use of oral hypoglycemic drugs; F17.200 Nicotine dependence, unspecified, uncomplicated
CPT/HCPCS: 36415; 71045; 80053; 81003; 83690; 83735; 83880; 84484; 85025; 96374; 96375; 99284; J1170; J1200; 81001; 87086

== ENCOUNTER 2019-02-20 22:39 | Outpatient (CLI) | payer MEDICARE, MEDICAID | END 2019-02-20 22:40 | disposition critical access hospital (66) | LOC: EMS 22:39 | PROVIDERS: ATTEND Surgery | DX: R56.9 Unspecified convulsions (principal); R51 Headache | CPT/HCPCS: A0425; A0429 ==

== ENCOUNTER 2019-02-20 22:55 | Emergency (ER) | payer MEDICARE, MEDICAID ==
--- NOTE | 2019-02-20 23:07 | ED Physician Documentation ---
PD HPI SEIZURE - Stated complaint Stated Complaint: SZ - Chief complaint Chief Complaint: Neuro - History obtained from History obtained from: Patient, EMS - History of Present Illness Timing - onset: Today Number of seizures: Multiple, Lasted - seconds Description of seizure activity: Generalized - Additional information Additional information: This is a 54-year-old woman who is well-known to this emergency department who has a history of seizures and lives in a long-term. Apparently she had 2 witnessed seizures by EMS in route. Patient is complaining of a headache and does not know where she is. She thinks that it is Sunday although it is actually and thinks the date is February 17. She is unable to provide any history for me just stating that she does not know. Review of Systems Unable to obtain: AMS, Confused Neurologic: reports: Headache PD PAST MEDICAL HISTORY - Past Medical History Cardiovascular: Angina, Other (no history of CHF ) Respiratory: COPD, Pneumonia Neuro: CVA, Migraines, Seizure disorder Endocrine/Autoimmune: Type 2 diabetes GI: GERD, Hiatal hernia FIRE WATCHER: None : None HEENT: None Psych: Depression, Bipolar disorder, Schizophrenia, Post traumatic stress disorder Musculoskeletal: None Derm: None - Past Surgical History Past Surgical History: Yes General: Bowel surgery Ortho: Other /FIRE WATCHER: 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 HEENT: Cataracts - Present Medications Home Medications: Ambulatory Orders Medication Instructions Recorded Confirmed metFORMIN [Glucophage] 500 mg ORAL TID 09/06/18 11/22/18 Divalproex ER [Depakote ER] 750 mg PO BID #30 tablet 09/29/18 11/22/18 Mirtazapine [Remeron] 15 mg ORAL QPM #5 tablet 09/29/18 11/22/18 OLANZapine [Olanzapine] 10 mg ORAL BID #10 tablet 09/29/18 11/22/18 Prazosin HCl 1 mg PO QPM #5 capsule 09/29/18 11/22/18 clonazePAM [Clonazepam] 1 mg ORAL BID #10 tablet 09/29/18 11/22/18 Albuterol Sulf [Ventolin Hfa 1 - 2 puffs INH Q4HR PRN #1 inhaler 10/15/18 Inhaler] Ondansetron Odt [Zofran] 4 mg TL Q6H PRN #10 tablet 10/15/18 11/22/18 Promethazine [Phenergan] 25 mg PO Q6H PRN #10 tab 10/22/18 11/22/18 Baclofen 5 mg PO BID 10/28/18 11/22/18 Albuterol 2.5 mg INH Q4H PRN #30 neb 11/11/18 11/22/18 Albuterol Sulf [Ventolin Hfa 2 - 3 puffs INH Q4HR PRN #1 inhaler 11/11/18 11/22/18 Inhaler] Benzonatate [Tessalon Perle] 100 mg PO TID PRN #25 capsule 11/11/18 11/22/18 dexAMETHasone [Decadron] 4 mg PO DAILY #5 tablet 11/11/18 11/22/18 Oseltamivir [Tamiflu] 75 mg PO BID #10 capsule 11/24/18 Benzonatate [Tessalon Perle] 100 mg PO TID PRN #30 capsule 11/26/18 dexAMETHasone [Decadron] 4 mg PO DAILY #5 tablet 11/26/18 Albuterol Sulf [Ventolin Hfa 1 - 2 puffs INH Q4HR PRN #1 inhaler 12/06/18 Inhaler] Doxycycline Hyclate 100 mg PO BID #14 capsule 12/06/18 dexAMETHasone [Decadron] 4 mg PO DAILY #5 tablet 12/06/18 guaiFENesin/CODEINE [Robitussin AC] 10 ml PO Q6H PRN #240 ml 12/06/18 Naproxen 375 mg PO BID #20 tablet 12/31/18 Tramadol HCl 50 mg PO Q6H PRN #15 tablet 12/31/18 Benzonatate [Tessalon Perle] 100 mg PO TID PRN #20 capsule 01/12/19 Tramadol HCl 50 mg PO Q6H PRN #20 tablet 01/12/19 dexAMETHasone [Decadron] 4 mg PO DAILY #5 tablet 01/12/19 LORazepam [Lorazepam] 0.5 - 1 mg PO BID PRN #10 tablet 01/20/19 Diphenoxylate/Atropine [Lomotil] 1 each PO QID PRN #10 tablet 02/01/19 Ondansetron Odt [Zofran] 4 mg TL Q6H PRN #10 tablet 02/01/19 Doxycycline Hyclate 100 mg PO BID #20 capsule 02/07/19 predniSONE [Prednisone] 40 mg PO DAILY #10 tablet 02/07/19 - Allergies Allergies/Adverse Reactions: Allergies Allergy/AdvReac Type Severity Reaction Status Date / Time azithromycin Allergy Severe Hives Verified 02/20/19 23:01 haloperidol Allergy Severe Anaphylaxis Verified 02/20/19 23:01 Penicillins Allergy Severe Anaphylaxis Verified 02/20/19 23:01 amoxicillin [Amoxicillin] Allergy Intermediate Rash Verified 02/20/19 23:01 grapefruit Allergy Intermediate Rash Verified 02/20/19 23:01 iodine Allergy Intermediate Rash Verified 02/20/19 23:01 Sulfa (Sulfonamide Allergy Intermediate Rash Verified 02/20/19 23:01 Antibiotics) shellfish derived Allergy Unknown Verified 02/20/19 23:01 haloperidol lactate * AdvReac Rash Verified 02/20/19 23:01 [From Haldol] bee sting Allergy Anaphylaxis Uncoded 02/20/19 23:01 - Social History Does the pt smoke?: Yes Smoking Status: Current every day smoker Does the pt drink ETOH?: No Does the pt have substance abuse?: No - Immunizations Immunizations are current?: No Immunizations: TDAP >10years/unknown - POLST Patient has POLST: No PD ED PE NORMAL - Vitals Vital signs reviewed: Yes - General General: No acute distress, Well developed/nourished - HEENT HEENT: Atraumatic, PERRL, EOMI, Moist mucous membranes - Neck Neck: No adenopathy - Cardiac Cardiac: RRR, No murmur - Respiratory Respiratory: No respiratory distress, Other (Patient is wheezing diffusely throughout the lung powers.) - Abdomen Abdomen: Normal bowel sounds, Soft, Non tender, Non distended - Derm Derm: Normal color, Warm and dry, No rash - Neuro Neuro: No motor deficit, No sensory deficit, Normal speech Eye Opening: Spontaneous Motor: Obeys Commands Verbal: Confused GCS Score: 14 Results - Vitals Vitals: Vital Signs - 24 hr 02/20/19 02/20/19 02/20/19 22:57 23:01 23:40 Temperature 36.5 C Heart Rate 107 H 102 H 106 H Respiratory 14 16 14 Rate Blood Pressure 132/92 H 134/87 H O2 Saturation 96 95 02/21/19 02/21/19 01:01 03:00 Temperature Heart Rate 76 77 Respiratory 16 13 Rate Blood Pressure 120/87 H 104/68 O2 Saturation 94 93 Oxygen O2 Source [With Activity] Room air O2 Source [Without Activity] Room air O2 Source Room air - Labs Labs: Laboratory Tests 02/20/19 02/20/19 02/20/19 23:18 23:40 23:40 WBC 15.5 H RBC 4.43 Hgb 12.0 Hct 37.3 MCV 84.3 MCH 27.2 MCHC 32.3 RDW 19.7 H Plt Count 345 MPV 9.6 Neut # (Auto) Not Reportable Lymph # (Auto) Not Reportable [place] # (Auto) Not Reportable Eos # (Auto) Not Reportable Baso # (Auto) Not Reportable Absolute Nucleated RBC Not Reportable Total Counted 100 Band Neuts % (Manual) 0 Abnorm Lymph % (Manual) 0 Nucleated RBC % Not Reportable Neutrophils # (Manual) 9.5 H Lymphocytes # (Manual) 3.9 H Monocytes # (Manual) 2.0 H Eosinophils # (Manual) 0.2 Basophils # (Manual) 0.0 Differential Comment MANUAL DIFFERENTIAL Platelet Estimate NORMAL (130-450,000) RBC Morph Micro Appear NORMAL APPEARANCE Sodium 142 Potassium 3.5 Chloride 106 Carbon Dioxide 24 Anion Gap 12.0 BUN 12 Creatinine 0.7 Estimated GFR (MDRD) 87 L Glucose 114 H Calcium 8.8 Total Bilirubin 0.3 AST 22 ALT 15 Alkaline Phosphatase 59 Total Protein 6.7 Albumin 3.6 Globulin 3.1 Albumin/Globulin Ratio 1.2 Lipase 19 L Urine Color YELLOW Urine Clarity CLEAR Urine pH 6.0 Ur Specific [place] 1.015 Urine Protein NEGATIVE Urine Glucose (UA) NEGATIVE Urine Ketones NEGATIVE Urine Occult Blood NEGATIVE Urine Nitrite NEGATIVE Urine Bilirubin NEGATIVE Urine Urobilinogen 0.2 (NORMAL) Ur Leukocyte Esterase NEGATIVE Ur Microscopic Review NOT INDICATED Urine Culture Comments NOT INDICATED Last Dose Date 02/20 Last Dose Time UNK Urine Opiates Screen NEGATIVE Ur Oxycodone Screen NEGATIVE Urine Methadone Screen NEGATIVE Ur Propoxyphene Screen NEGATIVE Ur Barbiturates Screen NEGATIVE Valproic Acid 24.7 Ur Tricyclics Screen NEGATIVE Ur Phencyclidine Scrn NEGATIVE Ur Amphetamine Screen NEGATIVE U Methamphetamines Scrn NEGATIVE U Benzodiazepines Scrn POSITIVE H Urine Cocaine Screen NEGATIVE U Cannabinoids Screen NEGATIVE Ethyl Alcohol < 5.0 PD MEDICAL DECISION MAKING - ED course Complexity details: re-evaluated patient, d/w patient, d/w family ED course: Patient's Depakote level was sub therapeutic and she was given 500mg Valproic acid IV. She tells me that the alf hands out her medication and that she has been taking it. WBC is elevated, likely due to seizure activity. CT head is neg. Patient received Toradol for ERICKSON and was sleeping soundly. When I went in to discuss her labs she stated that she has been referred to [facility] for her headaches as well as chronic back pain, so this is not a new problem for her. She is given 50mg Benadryl for the headache tonight. Plan to D/C back to alf. Departure - Departure Disposition: , Self Care Clinical Impression: Seizure Condition: Good Instructions: ED Seizure Recurrent Follow-Up: Lloyd Justin PA-C [Primary Care Provider] - Comments: Kami's depakote level was only 25. Please ensure that she is taking her Depakote and if she is, she may need to see her doctor or Neurologist about adjusting the dose to prevent breakthrough seizures. Follow-up also with pain management as recommended by her doctor.
[2019-02-20] MEDS ORDERED: ALBUTEROL NEB 2.5 MG/3 ML INH STA (23:30)
[2019-02-20 23:43] LABS: MUDS CUTOFF CONCENTRATIONS CUTOFF CONC BELOW:
[2019-02-20 23:47] LABS: BILIRUBIN,URINE NEGATIVE (NEGATIVE); CLARITY,URINE CLEAR (CLEAR); GLUCOSE, URINE (UA) NEGATIVE (NEGATIVE); KETONES,URINE (UA) NEGATIVE (NEGATIVE); LEUKOCYTE ESTERASE, URINE NEGATIVE (NEGATIVE); NITRITE,URINE NEGATIVE (NEGATIVE); OCCULT BLOOD,URINE NEGATIVE (NEGATIVE); PROTEIN,URINE NEGATIVE (NEGATIVE); UROBILINOGEN,URINE 0.2 (NORMAL) E.U./dL (NORMAL)
[2019-02-20 23:51] LABS: BASOPHILS % (AUTO) 0.9 %; EOSINOPHILS % (AUTO) 1.8 %; LYMPHOCYTES % (AUTO) 31.2 %; MEAN CORPUSCULAR HEMOGLOBIN 27.2 pg (27.0-31.0); MEAN CORPUSCULAR HGB CONC 32.3 g/dL (32.0-36.0); MEAN CORPUSCULAR VOLUME 84.3 fL (81.0-99.0); MEAN PLATELET VOLUME 9.6 fL (7.9-10.8); MONOCYTES % (AUTO) 15.4 %; NEUTROPHILS % (AUTO) 50.7 %; PLT - PLATELET COUNT 345 10^3/uL (130-450); RED BLOOD COUNT 4.43 10^6/uL (4.20-5.40); RED CELL DISTRIBUTION WIDTH 19.7 % (12.0-15.0); WHITE BLOOD COUNT 15.5 x10^3/uL (4.8-10.8)
[2019-02-20 23:53] LABS: ABNORMAL LYMPHS % (MANUAL) 0 %; BAND NEUTROPHILS % (MANUAL) 0 %
[2019-02-20 23:57] LABS: AMPHETAMINE SCREEN,URINE NEGATIVE (NEGATIVE); BENZODIAZEPINES SCREEN, URINE POSITIVE (NEGATIVE); COCAINE SCREEN URINE NEGATIVE (NEGATIVE); METHADONE SCREEN, URINE NEGATIVE (NEGATIVE); METHAMPHETAMINES SCREEN, URINE NEGATIVE (NEGATIVE); OPIATE SCREEN, URINE NEGATIVE (NEGATIVE); OXYCODONE SCREEN, URINE NEGATIVE (NEGATIVE); PROPOXYPHENE SCREEN, URINE NEGATIVE (NEGATIVE); TRICYCLIC ANTIDEPRESSANT,URINE NEGATIVE (NEGATIVE)
[2019-02-21 00:03] LABS: ALBUMIN 3.6 g/dL (3.2-5.5); ALBUMIN/GLOBULIN RATIO 1.2 (1.0-2.2); ALKALINE PHOSPHATASE 59 IU/L (42-121); ALT ALANINE AMINOTRANSFERASE 15 IU/L (10-60); AST ASPARTATE AMINOTRANSFERASE 22 IU/L (10-42); BILIRUBIN,TOTAL 0.3 mg/dL (0.2-1.0); BUN - BLOOD UREA NITROGEN 12 mg/dL (6-20); CALCIUM 8.8 mg/dL (8.5-10.3); CARBON DIOXIDE - CO2 24 mmol/L (21-32); CHLORIDE 106 mmol/L (101-111); CREATININE 0.7 mg/dL (0.4-1.0); GFR - MDRD 87 (>89); GLUCOSE 114 mg/dL (70-100); LIPASE 19 U/L (22-51); SODIUM 142 mmol/L (135-145); TOTAL PROTEIN 6.7 g/dL (6.7-8.2); VALPROIC ACID (DEPAKOTE) 24.7 ug/mL
--- NOTE | 2019-02-21 00:08 | CT Report ---
Reason: headache; altered mental status Procedure Date: 02/20/2019 Accession Number: [id number] / [id number] Procedure: CT - HEAD WO CPT Code: FULL RESULT: EXAM: CT HEAD EXAM DATE: 02/20/2019 11:56 PM. CLINICAL HISTORY: Headache; altered mental status. COMPARISON: HEAD W/O 12/01/2018 12:14 PM HEAD W/O 11/22/2018 10:51 PM. TECHNIQUE: Multiaxial CT images were obtained from the foramen magnum to the vertex. Reformats: Sagittal and coronal. IV contrast: None. In accordance with CT protocol optimization, one or more of the following dose reduction techniques were utilized for this exam: automated exposure control, adjustment of mA and/or KV based on patient size, or use of iterative reconstructive technique. FINDINGS: Parenchyma: No intraparenchymal hemorrhage. No evidence of mass, midline shift, or CT findings of infarction. Lora-white differentiation is distinct. Extraaxial Spaces: Normal for age. No subdural or epidural collections identified. Ventricles: Normal in size and position. Sinuses and Orbits: Imaged paranasal sinuses, orbits, and mastoids show no significant abnormality. Bones: No evidence of fracture or calvarial defect. Other: None. IMPRESSION: Normal head CT. RADIA
[2019-02-21 00:23] LABS: DIFFERENTIAL COMMENT MANUAL DIFFERENTIAL; EOSINOPHILS # (MANUAL) 0.2 10^3/uL (0-0.7); LYMPHOCYTES # (MANUAL) 3.9 10^3/uL (1.5-3.5); LYMPHOCYTES % (MANUAL) 25 %; NEUTROPHILS # (MANUAL) 9.5 10^3/uL (1.5-6.6); NEUTROPHILS % (MANUAL) 61 %; PLATELET ESTIMATE, MANUAL NORMAL (130-450,000) (NORMAL); RBC MORPHOLOGY (MULTIPLE) NORMAL APPEARANCE (NORMAL)
[2019-02-21] MEDS ORDERED: VALPROATE INJ 500 MG in SODIUM CHLORIDE 0.9% 100ML 100 ML IV STA (00:41)
[2019-02-21] MEDS ORDERED: KETOROLAC 30 MG/ML VIAL IVP STA (00:43)
[2019-02-21] MEDS ORDERED: diphenhydrAMINE INJ 50 MG/ML VIAL IVP STA (02:43)
[2019-02-21 05:48] VITALS: BP 108/57
== END 2019-02-21 05:59 | disposition home or self-care (01) ==
LOC: EDUNIT# → ED 22:55
DX: G40.909 Epilepsy, unspecified, not intractable, without status epilepticus (principal); D72.829 Elevated white blood cell count, unspecified; R51 Headache; E11.9 Type 2 diabetes mellitus without complications; Z79.84 Long term (current) use of oral hypoglycemic drugs; J44.9 Chronic obstructive pulmonary disease, unspecified; F17.200 Nicotine dependence, unspecified, uncomplicated
CPT/HCPCS: 36415; 70450; 80053; 80164; 81003; 83690; 85025; 94640; 96365; 96375; 99284; J1200; 80306; 80320; 81001; 87086

== ENCOUNTER 2019-03-05 19:21 | Outpatient (CLI) | payer MEDICARE, MEDICAID | END 2019-03-05 19:22 | disposition critical access hospital (66) | LOC: EMS 19:21 | PROVIDERS: ATTEND Surgery | DX: R07.9 Chest pain, unspecified (principal); M54.9 Dorsalgia, unspecified; R13.10 Dysphagia, unspecified | CPT/HCPCS: A0425; A0427 ==

== ENCOUNTER 2019-03-05 19:37 | Emergency (ER) | payer MEDICARE, MEDICAID ==
[2019-03-05 20:12] LABS: BASOPHILS # (AUTO) 0.1 10^3/uL (0.0-0.1); BASOPHILS % (AUTO) 0.8 %; EOSINOPHILS # (AUTO) 0.3 10^3/uL (0.0-0.7); EOSINOPHILS % (AUTO) 2.2 %; LYMPHOCYTES # (AUTO) 5.4 10^3/uL (1.5-3.5); MEAN CORPUSCULAR HEMOGLOBIN 26.5 pg (27.0-31.0); MEAN CORPUSCULAR VOLUME 85.6 fL (81.0-99.0); MEAN PLATELET VOLUME 11.5 fL (7.9-10.8); MONOCYTES % (AUTO) 14.9 %; NEUTROPHILS # (AUTO) 5.6 10^3/uL (1.5-6.6); NEUTROPHILS % (AUTO) 41.7 %; PLT - PLATELET COUNT 351 10^3/uL (130-450); RED BLOOD COUNT 4.52 10^6/uL (4.20-5.40); RED CELL DISTRIBUTION WIDTH 19.8 % (12.0-15.0); WHITE BLOOD COUNT 13.4 x10^3/uL (4.8-10.8)
[2019-03-05 20:16] LABS: ALBUMIN 3.6 g/dL (3.2-5.5); ALBUMIN/GLOBULIN RATIO 1.1 (1.0-2.2); BILIRUBIN,TOTAL 0.6 mg/dL (0.2-1.0); CREATININE 0.8 mg/dL (0.4-1.0)
[2019-03-05 20:42] LABS: DIFFERENTIAL COMMENT MANUAL=AUTO DIFF; PLATELET ESTIMATE, MANUAL NORMAL (130-450,000) (NORMAL); PLATELET MORPHOLOGY NORMAL APPEARANCE (NORMAL)
--- NOTE | 2019-03-05 20:48 | ED Physician Documentation ---
PD HPI CHEST PAIN - Stated complaint Stated Complaint: CHEST/BACK PAIN - Chief complaint Chief Complaint: Cardiac - History obtained from History obtained from: Patient - History of Present Illness Timing - onset: Other (chest pain started earlier today, back pain x 1 week, odynophagia x yesterday) Timing - details: Still present, Waxing and waning Pain level now: 6 Quality: Pain Location: Substernal, Left chest Radiation: Other (chest pain does not radiate; her back pain feels like her recurrent/chronic pain and not radiating chest pain) Improved by: Rest Worsened by: Exertion, Inspiration Associated symptoms: Shortness of air Recently seen: Emergency Dept (Frequent [facility] ED visits (this is her [facility] ED visit of 2019, third this month)) - Additional information Additional information: c/o chest pain, episodic since earlier this afternoon. Also c/o back pain x 1 week which feels like her recurrent, chronic back pain. Pain when she swallows since yesterday Review of Systems Constitutional: denies: Fever, Chills, Sweats Throat: denies: Sore throat (odynophagia but no pain when not swallowing) Cardiac: reports: Chest pain / pressure. denies: Palpitations, Pedal edema, Calf pain Respiratory: reports: Dyspnea, Wheezing. denies: Cough GI: reports: Reviewed and negative Musculoskeletal: reports: Back pain. 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 OPERATIONS SPECIALIST: None : None HEENT: None Psych: Depression, Bipolar disorder, Schizophrenia, Post traumatic stress disorder Musculoskeletal: None Derm: None - Past Surgical History Past Surgical History: Yes General: Bowel surgery Ortho: Other /LEARNING OPERATIONS SPECIALIST: 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 HEENT: Cataracts - Present Medications Home Medications: Ambulatory Orders Medication Instructions Recorded Confirmed metFORMIN [Glucophage] 500 mg ORAL TID 09/06/18 11/22/18 Divalproex ER [Depakote ER] 750 mg PO BID #30 tablet 09/29/18 11/22/18 Mirtazapine [Remeron] 15 mg ORAL QPM #5 tablet 09/29/18 11/22/18 OLANZapine [Olanzapine] 10 mg ORAL BID #10 tablet 09/29/18 11/22/18 Prazosin HCl 1 mg PO QPM #5 capsule 09/29/18 11/22/18 clonazePAM [Clonazepam] 1 mg ORAL BID #10 tablet 09/29/18 11/22/18 Albuterol Sulf [Ventolin Hfa 1 - 2 puffs INH Q4HR PRN #1 inhaler 10/15/18 11/22/18 Inhaler] Ondansetron Odt [Zofran] 4 mg TL Q6H PRN #10 tablet 10/15/18 11/22/18 Promethazine [Phenergan] 25 mg PO Q6H PRN #10 tab 10/22/18 11/22/18 Baclofen 5 mg PO BID 10/28/18 11/22/18 Albuterol 2.5 mg INH Q4H PRN #30 neb 11/11/18 11/22/18 Albuterol Sulf [Ventolin Hfa 2 - 3 puffs INH Q4HR PRN #1 inhaler 11/11/18 11/22/18 Inhaler] Benzonatate [Tessalon Perle] 100 mg PO TID PRN #25 capsule 11/11/18 11/22/18 dexAMETHasone [Decadron] 4 mg PO DAILY #5 tablet 11/11/18 11/22/18 Oseltamivir [Tamiflu] 75 mg PO BID #10 capsule 11/24/18 Benzonatate [Tessalon Perle] 100 mg PO TID PRN #30 capsule 11/26/18 dexAMETHasone [Decadron] 4 mg PO DAILY #5 tablet 11/26/18 Albuterol Sulf [Ventolin Hfa 1 - 2 puffs INH Q4HR PRN #1 inhaler 12/06/18 Inhaler] Doxycycline Hyclate 100 mg PO BID #14 capsule 12/06/18 dexAMETHasone [Decadron] 4 mg PO DAILY #5 tablet 12/06/18 guaiFENesin/CODEINE [Robitussin AC] 10 ml PO Q6H PRN #240 ml 12/06/18 Naproxen 375 mg PO BID #20 tablet 12/31/18 Tramadol HCl 50 mg PO Q6H PRN #15 tablet 12/31/18 Benzonatate [Tessalon Perle] 100 mg PO TID PRN #20 capsule 01/12/19 Tramadol HCl 50 mg PO Q6H PRN #20 tablet 01/12/19 dexAMETHasone [Decadron] 4 mg PO DAILY #5 tablet 01/12/19 LORazepam [Lorazepam] 0.5 - 1 mg PO BID PRN #10 tablet 01/20/19 Diphenoxylate/Atropine [Lomotil] 1 each PO QID PRN #10 tablet 02/01/19 Ondansetron Odt [Zofran] 4 mg TL Q6H PRN #10 tablet 02/01/19 Doxycycline Hyclate 100 mg PO BID #20 capsule 02/07/19 predniSONE [Prednisone] 40 mg PO DAILY #10 tablet 02/07/19 Azithromycin [Zithromax] 250 mg PO DAILY #4 tablet 03/06/19 - Allergies Allergies/Adverse Reactions: Allergies Allergy/AdvReac Type Severity Reaction Status Date / Time azithromycin Allergy Severe Hives Verified 03/05/19 19:47 haloperidol Allergy Severe Anaphylaxis Verified 03/05/19 19:47 Penicillins Allergy Severe Anaphylaxis Verified 03/05/19 19:47 amoxicillin [Amoxicillin] Allergy Intermediate Rash Verified 03/05/19 19:47 grapefruit Allergy Intermediate Rash Verified 03/05/19 19:47 iodine Allergy Intermediate Rash Verified 03/05/19 19:47 Sulfa (Sulfonamide Allergy Intermediate Rash Verified 03/05/19 19:47 Antibiotics) shellfish derived Allergy Unknown Verified 03/05/19 19:47 haloperidol lactate * AdvReac Rash Verified 03/05/19 19:47 [From Haldol] bee sting Allergy Anaphylaxis Uncoded 03/05/19 19:47 - Social History Does the pt smoke?: Yes Smoking Status: Current every day smoker Does the pt drink ETOH?: No Does the pt have substance abuse?: No - Immunizations Immunizations are current?: No Immunizations: TDAP >10years/unknown - POLST Patient has POLST: No PD ED PE NORMAL - Vitals Vital signs reviewed: Yes - General General: Alert and oriented X 3, No acute distress, Well developed/nourished - HEENT HEENT: Moist mucous membranes - Neck Neck: Supple, no meningeal sign - Cardiac Cardiac: RRR, No murmur - Respiratory Respiratory: No respiratory distress - Abdomen Abdomen: Soft, Non tender, Non distended - Derm Derm: Normal color, Warm and dry - Extremities Extremities: No edema PD ED PE EXPANDED - Respiratory Respiratory: Wheezing (diffuse I/E bilateral wheezing) Results - Vitals Vitals: Vital Signs - 24 hr 03/05/19 03/05/19 03/05/19 19:40 21:18 21:42 Temperature 36.8 C Heart Rate 92 78 71 Respiratory 16 16 14 Rate Blood Pressure 123/75 111/59 L O2 Saturation 93 98 03/05/19 03/06/19 03/06/19 23:55 00:03 02:14 Temperature Heart Rate 75 76 73 Respiratory 14 14 12 Rate Blood Pressure 119/70 106/66 O2 Saturation 99 91 L Oxygen O2 Source [] Room air O2 Source [] Room air O2 Source Room air - EKG (time done) No standard instances Rate: Rate (enter#) (88) Rhythm: NSR [place]: LAD Intervals: Normal MT QRS: Normal Ischemia: Normal ST segments - Labs Labs: Laboratory Tests 03/05/19 03/05/19 03/05/19 19:59 19:59 19:59 WBC 13.4 H RBC 4.52 Hgb 12.0 Hct 38.7 MCV 85.6 MCH 26.5 L MCHC 31.0 L RDW 19.8 H Plt Count 351 MPV 11.5 H Neut # (Auto) 5.6 Lymph # (Auto) 5.4 H [place] # (Auto) 2.0 H Eos # (Auto) 0.3 Baso # (Auto) 0.1 Absolute Nucleated RBC 0.00 Band Neuts % (Manual) Not Reportable Abnorm Lymph % (Manual) Not Reportable Nucleated RBC % 0.0 Neutrophils # (Manual) Not Reportable Lymphocytes # (Manual) Not Reportable Monocytes # (Manual) Not Reportable Eosinophils # (Manual) Not Reportable Basophils # (Manual) Not Reportable Differential Comment MANUAL=AUTO DIFF Manual Slide Review Indicated Platelet Estimate NORMAL (130-450,000) Platelet Morphology NORMAL APPEARANCE RBC Morph Micro Appear 3+ ANISOCYTOSIS Sodium 138 Potassium 3.9 Chloride 101 Carbon Dioxide 23 Anion Gap 14.0 H BUN 16 Creatinine 0.8 Estimated GFR (MDRD) 74 L Glucose 100 Calcium 9.0 Total Bilirubin 0.6 AST 16 ALT 15 Alkaline Phosphatase 58 Troponin I < 0.04 Total Protein 7.0 Albumin 3.6 Globulin 3.4 Albumin/Globulin Ratio 1.1 Lipase 20 L - Rads (name of study) chest xray Radiology: Prelim report reviewed, See rad report PD MEDICAL DECISION MAKING - ED course Complexity details: reviewed old records, reviewed results, re-evaluated patient, considered differential, d/w patient ED course: Improved with duoneb followed by xopenex. Given vicodin x 2 tablets for back pain. Zithromax for possible early infiltrate on CXR Departure - Departure Disposition: Home, Self Care Clinical Impression: Bronchitis, Asthma Condition: Good Health Concerns: shortness of breath, chest pain Plan of Treatment: antibiotic as prescribed Care Goals: resolution of symptoms Assessment: see diagnoses Instructions: ED Upper Resp Infec Abx Tx, ED Chest Pain Atypical Unkn Cause Prescriptions: Azithromycin [Zithromax] 250 mg PO DAILY #4 tablet Discharge Date/Time: 03/06/19 02:40
[2019-03-05] MEDS ORDERED: HYDROcod/ACETAM 5/325 MG TABLET PO STA ×2 (21:05→23:15)
[2019-03-05] MEDS ORDERED: IPRATROPIUM/ALBUTEROL 3 ML NEB INH STA (21:05)
[2019-03-05] MEDS ORDERED: KETOROLAC 30 MG/ML VIAL IVP STA (21:05)
--- NOTE | 2019-03-05 22:11 | XRAY Report ---
Reason: Chest Pain Procedure Date: 03/05/2019 Accession Number: [id number] / [id number] Procedure: XR - Chest 1 View X-Ray CPT Code: 34339 FULL RESULT: EXAM: CHEST RADIOGRAPHY EXAM DATE: 03/05/2019 08:45 PM. CLINICAL HISTORY: Chest Pain. COMPARISON: CHEST 1 VIEW 02/16/2019 10:27 PM. TECHNIQUE: 1 view. FINDINGS: Lungs/Pleura: Hemidiaphragm with mild adjoining density. No effusion or pneumothorax. No pulmonary edema. Mediastinum: Heart and mediastinal contours are unremarkable. Other: None. IMPRESSION: Elevated left hemidiaphragm and adjoining likely atelectasis. Developing infection not completely excluded. RADIA
[2019-03-05] MEDS ORDERED: AZITHROMYCIN 250 MG TABLET PO STA (23:15)
[2019-03-05] MEDS ORDERED: LEVALBUTEROL 1.25 MG/3 ML NEB INH STA (23:15)
[2019-03-05] MEDS ORDERED: DEXAMETHASONE 10 MG/ML VIAL IVP STA (23:17)
[2019-03-06 02:15] VITALS: BP 106/66
== END 2019-03-06 02:40 | disposition home or self-care (01) ==
LOC: EDUNIT# → ED 19:37
DX: J45.901 Unspecified asthma with (acute) exacerbation (principal); E11.9 Type 2 diabetes mellitus without complications; Z86.73 Personal history of transient ischemic attack (TIA), and cerebral infarction without residual deficits; Z79.84 Long term (current) use of oral hypoglycemic drugs; F17.200 Nicotine dependence, unspecified, uncomplicated
CPT/HCPCS: 71045; 80053; 83690; 84484; 85025; 93005; 94640; 96374; 96375; 99284; A9270

== ENCOUNTER 2019-03-06 18:40 | Outpatient (CLI) | payer MEDICARE, MEDICAID | END 2019-03-06 18:41 | disposition critical access hospital (66) | LOC: EMS 18:40 | PROVIDERS: ATTEND Surgery | DX: R45.851 Suicidal ideations (principal) | CPT/HCPCS: A0425; A0429 ==

== ENCOUNTER 2019-03-06 18:58 | Emergency (ER) | payer MEDICARE, MEDICAID ==
[2019-03-06 19:31] LABS: BASOPHILS # (AUTO) 0.1 10^3/uL (0.0-0.1); BASOPHILS % (AUTO) 0.3 %; HGB - HEMOGLOBIN 11.7 g/dL (12.0-16.0); LYMPHOCYTES # (AUTO) 3.9 10^3/uL (1.5-3.5); MEAN CORPUSCULAR HEMOGLOBIN 26.9 pg (27.0-31.0); MEAN CORPUSCULAR HGB CONC 31.7 g/dL (32.0-36.0); MEAN CORPUSCULAR VOLUME 84.8 fL (81.0-99.0); MEAN PLATELET VOLUME 11.3 fL (7.9-10.8); MONOCYTES # (AUTO) 2.1 10^3/uL (0.0-1.0); MONOCYTES % (AUTO) 12.8 %; PLT - PLATELET COUNT 356 10^3/uL (130-450); RED BLOOD COUNT 4.35 10^6/uL (4.20-5.40); RED CELL DISTRIBUTION WIDTH 19.3 % (12.0-15.0); WHITE BLOOD COUNT 16.1 x10^3/uL (4.8-10.8)
[2019-03-06 19:58] LABS: MUDS CUTOFF CONCENTRATIONS CUTOFF CONC BELOW:
[2019-03-06 20:00] LABS: ACETAMINOPHEN < 10 ug/mL (10-30); ALBUMIN 3.7 g/dL (3.2-5.5); ALBUMIN/GLOBULIN RATIO 1.2 (1.0-2.2); ALKALINE PHOSPHATASE 52 IU/L (42-121); ALT ALANINE AMINOTRANSFERASE 15 IU/L (10-60); AST ASPARTATE AMINOTRANSFERASE 18 IU/L (10-42); BILIRUBIN,TOTAL 0.4 mg/dL (0.2-1.0); BUN - BLOOD UREA NITROGEN 17 mg/dL (6-20); CALCIUM 9.3 mg/dL (8.5-10.3); CARBON DIOXIDE - CO2 23 mmol/L (21-32); CHLORIDE 105 mmol/L (101-111); CREATININE 0.8 mg/dL (0.4-1.0); GFR - MDRD 74 (>89); GLUCOSE 111 mg/dL (70-100); LIPASE 19 U/L (22-51); SALICYLATE < 6.0 mg/dL; SODIUM 138 mmol/L (135-145); TOTAL PROTEIN 6.9 g/dL (6.7-8.2)
[2019-03-06 20:01] LABS: BILIRUBIN,URINE NEGATIVE (NEGATIVE); GLUCOSE, URINE (UA) NEGATIVE (NEGATIVE); KETONES,URINE (UA) NEGATIVE (NEGATIVE); LEUKOCYTE ESTERASE, URINE NEGATIVE (NEGATIVE); NITRITE,URINE NEGATIVE (NEGATIVE); OCCULT BLOOD,URINE NEGATIVE (NEGATIVE); PROTEIN,URINE NEGATIVE (NEGATIVE); UROBILINOGEN,URINE 0.2 (NORMAL) E.U./dL (NORMAL)
[2019-03-06] MEDS ORDERED: BUTALB/ACETAM/CAFF 50/325/40MG TABLET PO STA (20:02)
[2019-03-06 20:06] LABS: CLARITY,URINE CLEAR (CLEAR)
[2019-03-06 20:13] LABS: AMPHETAMINE SCREEN,URINE NEGATIVE (NEGATIVE); BENZODIAZEPINES SCREEN, URINE POSITIVE (NEGATIVE); COCAINE SCREEN URINE NEGATIVE (NEGATIVE); METHADONE SCREEN, URINE NEGATIVE (NEGATIVE); METHAMPHETAMINES SCREEN, URINE NEGATIVE (NEGATIVE); OPIATE SCREEN, URINE POSITIVE (NEGATIVE); OXYCODONE SCREEN, URINE NEGATIVE (NEGATIVE); PROPOXYPHENE SCREEN, URINE NEGATIVE (NEGATIVE); TRICYCLIC ANTIDEPRESSANT,URINE NEGATIVE (NEGATIVE)
[2019-03-06 20:28] LABS: PLATELET ESTIMATE, MANUAL NORMAL (130-450,000) (NORMAL); PLATELET MORPHOLOGY 1+ LARGE PLATELETS (NORMAL)
[2019-03-06 20:29] LABS: DIFFERENTIAL COMMENT MANUAL=AUTO DIFF
--- NOTE | 2019-03-06 20:30 | ED Physician Documentation ---
PD HPI MHE - Stated complaint Stated Complaint: SI - Chief complaint Chief Complaint: General - History obtained from History obtained from: Patient, EMS - History of Present Illness Primary symptom: Suicidal ideation Timing - onset: Today Pain level max: 0 Pain level now: 0 - Additional information Additional information: 54-year-old female with a long history of depression presents to the emergency department with suicidal ideation. She plans to cut her throat. Does not feel safe at home. Upcoming anniversary of her daughter's , she would have been 24. Patient states she cannot contract for safety and would like to be hospitalized for suicidal ideation and depression Review of Systems Ten Systems: 10 systems reviewed and negative Constitutional: denies: Fever, Chills Ears: denies: Ear pain Nose: denies: Rhinorrhea / runny nose, Congestion Throat: denies: Sore throat Cardiac: denies: Chest pain / pressure Respiratory: denies: Cough GI: denies: Abdominal Pain, Nausea, Vomiting, Diarrhea Skin: denies: Rash Musculoskeletal: denies: Neck pain, Back pain Neurologic: reports: Headache (01/17, holocranial) PD PAST MEDICAL HISTORY - Past Medical History Cardiovascular: Angina, Other Respiratory: COPD, Pneumonia Neuro: CVA, Migraines, Seizure disorder Endocrine/Autoimmune: Type 2 diabetes GI: GERD, Hiatal hernia 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 : None HEENT: None Psych: Depression, Bipolar disorder, Schizophrenia, Post traumatic stress disorder, Other Musculoskeletal: None Derm: None Other Past Medical History: SI - Past Surgical History Past Surgical History: Yes General: Bowel surgery Ortho: Other /BUS REPAIR SUPERVISOR: 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 HEENT: Cataracts - Present Medications Home Medications: Ambulatory Orders Medication Instructions Recorded Confirmed metFORMIN [Glucophage] 500 mg ORAL TID 09/06/18 11/22/18 Divalproex ER [Depakote ER] 750 mg PO BID #30 tablet 09/29/18 11/22/18 Mirtazapine [Remeron] 15 mg ORAL QPM #5 tablet 09/29/18 11/22/18 OLANZapine [Olanzapine] 10 mg ORAL BID #10 tablet 09/29/18 11/22/18 Prazosin HCl 1 mg PO QPM #5 capsule 09/29/18 11/22/18 clonazePAM [Clonazepam] 1 mg ORAL BID #10 tablet 09/29/18 11/22/18 Albuterol Sulf [Ventolin Hfa 1 - 2 puffs INH Q4HR PRN #1 inhaler 10/15/18 11/22/18 Inhaler] Ondansetron Odt [Zofran] 4 mg TL Q6H PRN #10 tablet 10/15/18 11/22/18 Promethazine [Phenergan] 25 mg PO Q6H PRN #10 tab 10/22/18 11/22/18 Baclofen 5 mg PO BID 10/28/18 11/22/18 Albuterol 2.5 mg INH Q4H PRN #30 neb 11/11/18 11/22/18 Albuterol Sulf [Ventolin Hfa 2 - 3 puffs INH Q4HR PRN #1 inhaler 11/11/18 11/22/18 Inhaler] Benzonatate [Tessalon Perle] 100 mg PO TID PRN #25 capsule 11/11/18 11/22/18 dexAMETHasone [Decadron] 4 mg PO DAILY #5 tablet 11/11/18 11/22/18 Oseltamivir [Tamiflu] 75 mg PO BID #10 capsule 11/24/18 Benzonatate [Tessalon Perle] 100 mg PO TID PRN #30 capsule 11/26/18 dexAMETHasone [Decadron] 4 mg PO DAILY #5 tablet 11/26/18 Albuterol Sulf [Ventolin Hfa 1 - 2 puffs INH Q4HR PRN #1 inhaler 12/06/18 Inhaler] Doxycycline Hyclate 100 mg PO BID #14 capsule 12/06/18 dexAMETHasone [Decadron] 4 mg PO DAILY #5 tablet 12/06/18 guaiFENesin/CODEINE [Robitussin AC] 10 ml PO Q6H PRN #240 ml 12/06/18 Naproxen 375 mg PO BID #20 tablet 12/31/18 Tramadol HCl 50 mg PO Q6H PRN #15 tablet 12/31/18 Benzonatate [Tessalon Perle] 100 mg PO TID PRN #20 capsule 01/12/19 Tramadol HCl 50 mg PO Q6H PRN #20 tablet 01/12/19 dexAMETHasone [Decadron] 4 mg PO DAILY #5 tablet 01/12/19 LORazepam [Lorazepam] 0.5 - 1 mg PO BID PRN #10 tablet 01/20/19 Diphenoxylate/Atropine [Lomotil] 1 each PO QID PRN #10 tablet 02/01/19 Ondansetron Odt [Zofran] 4 mg TL Q6H PRN #10 tablet 02/01/19 Doxycycline Hyclate 100 mg PO BID #20 capsule 02/07/19 predniSONE [Prednisone] 40 mg PO DAILY #10 tablet 02/07/19 Azithromycin [Zithromax] 250 mg PO DAILY #4 tablet 03/06/19 - Allergies Allergies/Adverse Reactions: Allergies Allergy/AdvReac Type Severity Reaction Status Date / Time azithromycin Allergy Severe Hives Verified 03/06/19 19:10 haloperidol Allergy Severe Anaphylaxis Verified 03/06/19 19:10 Penicillins Allergy Severe Anaphylaxis Verified 03/06/19 19:10 amoxicillin [Amoxicillin] Allergy Intermediate Rash Verified 03/06/19 19:10 grapefruit Allergy Intermediate Rash Verified 03/06/19 19:10 iodine Allergy Intermediate Rash Verified 03/06/19 19:10 Sulfa (Sulfonamide Allergy Intermediate Rash Verified 03/06/19 19:10 Antibiotics) shellfish derived Allergy Unknown Verified 03/06/19 19:10 haloperidol lactate * AdvReac Rash Verified 03/06/19 19:10 [From Haldol] bee sting Allergy Anaphylaxis Uncoded 03/06/19 19:10 - Social History Does the pt smoke?: Yes Smoking Status: Current every day smoker Does the pt drink ETOH?: No Does the pt have substance abuse?: No - Immunizations Immunizations are current?: No Immunizations: TDAP >10years/unknown - POLST Patient has POLST: No PD ED PE NORMAL - Vitals Vital signs reviewed: Yes - General General: Alert and oriented X 3, No acute distress, Well developed/nourished - HEENT HEENT: PERRL, Moist mucous membranes - Neck Neck: Supple, no meningeal sign - Cardiac Cardiac: RRR, Strong equal pulses - Respiratory Respiratory: No respiratory distress, Clear bilaterally - Abdomen Abdomen: Soft, Non tender, Non distended - Derm Derm: Warm and dry - Extremities Extremities: No edema - Neuro Neuro: Alert and oriented X 3 - Psych Psych: Normal mood, Normal affect Results - Vitals Vitals: Vital Signs - 24 hr 03/06/19 19:05 Temperature 37.2 C Heart Rate 91 Respiratory 16 Rate Blood Pressure 137/73 H O2 Saturation 92 Oxygen O2 Source [With Activity] Room air O2 Source [Without Activity] Room air O2 Source Room air - Labs Labs: Laboratory Tests 03/06/19 03/06/19 03/06/19 19:26 19:26 19:26 WBC 16.1 H RBC 4.35 Hgb 11.7 L Hct 36.9 L MCV 84.8 MCH 26.9 L MCHC 31.7 L RDW 19.3 H Plt Count 356 MPV 11.3 H Neut # (Auto) 10.0 H Lymph # (Auto) 3.9 H [place] # (Auto) 2.1 H Eos # (Auto) 0.0 Baso # (Auto) 0.1 Absolute Nucleated RBC 0.00 Band Neuts % (Manual) Not Reportable Abnorm Lymph % (Manual) Not Reportable Nucleated RBC % 0.0 Neutrophils # (Manual) Not Reportable Lymphocytes # (Manual) Not Reportable Monocytes # (Manual) Not Reportable Eosinophils # (Manual) Not Reportable Basophils # (Manual) Not Reportable Differential Comment MANUAL=AUTO DIFF Manual Slide Review Indicated WBC Morphology NORMAL APPEARANCE Platelet Estimate NORMAL (130-450,000) Platelet Morphology 1+ LARGE PLATELETS RBC Morph Micro Appear OVALOCYTES Sodium 138 Potassium 4.2 Chloride 105 Carbon Dioxide 23 Anion Gap 10.0 BUN 17 Creatinine 0.8 Estimated GFR (MDRD) 74 L Glucose 111 H Calcium 9.3 Total Bilirubin 0.4 AST 18 ALT 15 Alkaline Phosphatase 52 Total Protein 6.9 Albumin 3.7 Globulin 3.2 Albumin/Globulin Ratio 1.2 Lipase 19 L TSH 1.80 Urine Color Urine Clarity Urine pH Ur Specific [place] Urine Protein Urine Glucose (UA) Urine Ketones Urine Occult Blood Urine Nitrite Urine Bilirubin Urine Urobilinogen Ur Leukocyte Esterase Ur Microscopic Review Urine Culture Comments Salicylates < 6.0 Urine Opiates Screen Ur Oxycodone Screen Urine Methadone Screen Ur Propoxyphene Screen Acetaminophen < 10 L Ur Barbiturates Screen Ur Tricyclics Screen Ur Phencyclidine Scrn Ur Amphetamine Screen U Methamphetamines Scrn U Benzodiazepines Scrn Urine Cocaine Screen U Cannabinoids Screen Ethyl Alcohol < 5.0 03/06/19 19:40 WBC RBC Hgb Hct MCV MCH MCHC RDW Plt Count MPV Neut # (Auto) Lymph # (Auto) [place] # (Auto) Eos # (Auto) Baso # (Auto) Absolute Nucleated RBC Band Neuts % (Manual) Abnorm Lymph % (Manual) Nucleated RBC % Neutrophils # (Manual) Lymphocytes # (Manual) Monocytes # (Manual) Eosinophils # (Manual) Basophils # (Manual) Differential Comment Manual Slide Review WBC Morphology Platelet Estimate Platelet Morphology RBC Morph Micro Appear Sodium Potassium Chloride Carbon Dioxide Anion Gap BUN Creatinine Estimated GFR (MDRD) Glucose Calcium Total Bilirubin AST ALT Alkaline Phosphatase Total Protein Albumin Globulin Albumin/Globulin Ratio Lipase TSH Urine Color YELLOW Urine Clarity CLEAR Urine pH 7.0 Ur Specific [place] 1.010 Urine Protein NEGATIVE Urine Glucose (UA) NEGATIVE Urine Ketones NEGATIVE Urine Occult Blood NEGATIVE Urine Nitrite NEGATIVE Urine Bilirubin NEGATIVE Urine Urobilinogen 0.2 (NORMAL) Ur Leukocyte Esterase NEGATIVE Ur Microscopic Review NOT INDICATED Urine Culture Comments NOT INDICATED Salicylates Urine Opiates Screen POSITIVE H Ur Oxycodone Screen NEGATIVE Urine Methadone Screen NEGATIVE Ur Propoxyphene Screen NEGATIVE Acetaminophen Ur Barbiturates Screen NEGATIVE Ur Tricyclics Screen NEGATIVE Ur Phencyclidine Scrn NEGATIVE Ur Amphetamine Screen NEGATIVE U Methamphetamines Scrn NEGATIVE U Benzodiazepines Scrn POSITIVE H Urine Cocaine Screen NEGATIVE U Cannabinoids Screen NEGATIVE Ethyl Alcohol PD MEDICAL DECISION MAKING - ED course Complexity details: reviewed old records, reviewed results, re-evaluated patient, considered differential, d/w patient ED course: Patient with SI. Wants to be inpatient. Has a plan. Will telepsych. Signed out to oncoming ED Physician. Departure - Departure Clinical Impression: Suicidal behavior Qualifiers: Attempted self-injury: without attempted self-injury Qualified Code(s): R46.89 - Other symptoms and signs involving appearance and behavior Condition: Stable
[2019-03-06] MEDS ORDERED: LORazepam 1 MG TABLET PO STA (22:24)
[2019-03-07] MEDS ORDERED: LORazepam 0.5 MG TABLET PO STA (03:54)
[2019-03-07] MEDS ORDERED: PRAZOSIN 1 MG CAPSULE PO STA (03:55)
[2019-03-07] MEDS ORDERED: OLANZapine ODT 5 MG TABLET TL STA (03:56)
--- NOTE | 2019-03-07 04:24 | TELEPSYCH PHYS NOTE ---
Telepsych Note - CHIEF COMPLAINT/HX OF PRESENT ILLNESS Cheif Complaint and History of Present Illness: Chief Complaint: depression HPI: The patient is a 54-year-old female with a history of Schizophrenia. She presents to the ER complaining of depressed mood and suicidal thoughts. The patient reports that this is the 24th anniversary of the of her daughter. She states that he has thoughts of cutting her throat. - SI/HI/SELF HARM SI/HI/SELF HARM (CURRENT OR HISTORY OF):: SI SI/HI/Self Harm Text (Current or History of):: 2 prior suicide attempts - VIOLENCE/LEGAL/COLLATERAL Violence - Legal - Collateral: Violence: none Legal: none Collateral: none - PSYCHIATRIC HX/TREATMENT HX Psychiatric: Depression, Bipolar disorder, Schizophrenia, Post traumatic stress disorder, Other Psychiatric/Treatment Hx Other: Multiple prior inpatient admissions. - MEDICAL HX Does the pt have a hx of MRSA?: No Neurological History: CVA, Migraines, Seizure disorder Eyes, Ears, Nose, Throat: None Cardiovascular: Angina, Other Respiratory: COPD, Pneumonia Skin: None Endocrine/Autoimmune: Type 2 diabetes Gastrointestinal: GERD, Hiatal hernia Urinary: None Musculoskeletal: None Blood Disorders: None PMH Other: SI - SURGICAL HX General: Bowel surgery Orthopedic: Other Gynecologic: 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 - HOME MEDICATIONS Home Meds (as last confirmed): Patient History Medication Instructions Recorded Confirmed metFORMIN [Glucophage] 500 mg ORAL TID 09/06/18 11/22/18 Baclofen 5 mg PO BID 10/28/18 11/22/18 - ALLERGIES Allergies (as last confirmed): Allergies Allergy/AdvReac Type Severity Reaction Status Date / Time azithromycin Allergy Severe Hives Verified 03/06/19 19:10 haloperidol Allergy Severe Anaphylaxis Verified 03/06/19 19:10 Penicillins Allergy Severe Anaphylaxis Verified 03/06/19 19:10 amoxicillin [Amoxicillin] Allergy Intermediate Rash Verified 03/06/19 19:10 grapefruit Allergy Intermediate Rash Verified 03/06/19 19:10 iodine Allergy Intermediate Rash Verified 03/06/19 19:10 Sulfa (Sulfonamide Allergy Intermediate Rash Verified 03/06/19 19:10 Antibiotics) shellfish derived Allergy Unknown Verified 03/06/19 19:10 haloperidol lactate * AdvReac Rash Verified 03/06/19 19:10 [From Haldol] bee sting Allergy Anaphylaxis Uncoded 03/06/19 19:10 - FAMILY PSYCH/SUICIDE/SOCIAL HX-MENTAL Family - Suicide - Social Hx and Mental Status Exam: Social History: single, lives alone Employment: none Education: HS grad, no college Stressors: of daughter History: none Abuse: none Mental Status Examination: Attitude and behavior: cooperative Speech: WNL Affect and mood: sad affect and mood Association and thought processes: linear Thought content: no delusions, + SI, no HI Perception: no hallucinations Sensorium, memory, and orientation: AAOx3 Intellectual functioning: average Insight and judgment: fair - PATIENT PROBLEM LIST (1) Major depressive disorder, recurrent, unspecified Impression: The patient is a 54-year-old female with a history of Schizophenia who presents to the hospital with depressed mood and SI with plan. She denies psychotic symptoms or HI. Inpatient care recommended. Continue psych meds. - TREATMENT/PHARMACOLOGICAL RECOMMENDATION Treatment - Pharmacological - Therapy Recommendations: Treatment Recommendations: Inpatient care, order Depakote level Pharmacological: Depakote ER 750 mg BID, Remeron 15 mg HS, Olanzapine 10 mg BID, Prazosin 1 mg HS, Klonopin 1 mg BID, Ativan 1 mg BID PRN anxiety Therapy: supportive Level of Care: inpatient - TIME SPENT & PROVIDER LOCATION Telepsych consultation conducted via videoconferencing: Yes List names and roles of persons who participated in consult: Ruslan Diaz M.D. [facility] Telepsych Provider Location: [place] Time Telepsych consult began: 06:03 Time Telepsych consult completed: 06:20
[2019-03-07 04:39] LABS: VALPROIC ACID (DEPAKOTE) 22.1 ug/mL
[2019-03-07] MEDS ORDERED: DIVALPROEX ER 250 MG TABLET PO SCH ×3 (09:00→21:00)
[2019-03-07] MEDS ORDERED: LORazepam 1 MG TABLET PO STA (14:34)
[2019-03-07] MEDS ORDERED: LORazepam 0.5 MG TABLET ONE (14:46)
--- NOTE | 2019-03-07 15:35 | ED Physician Documentation ---
ED Addendum - Addendum Addendum: 03/07/19 15:34 Patient remains in the ED with social work evaluation and otherwise awaiting psychiatric placement. Patient did require dose of Ativan given escalating behavior. Patient does take this as a home medication. Patient did try to elope from the ED, but was easily brought back and returned to her room without issue. EKG was obtained for further placement and indicates sinus rhythm with a rate of 63 and no other acute ischemic changes noted.
[2019-03-07 19:36] VITALS: BP 111/67
--- NOTE | 2019-03-07 19:45 | ED Physician Documentation ---
ED Addendum - Addendum Addendum: 03/07/19 19:45 Evaluated by the DCR and detained to [facility], cobras were completed. She has been cooperative in the department. She is being transferred in stable condition to a higher level psychiatric care. She is stable for transfer.
[2019-03-07] MEDS ORDERED: OLANZapine ODT 5 MG TABLET TL SCH (21:00)
[2019-03-07] MEDS ORDERED: traZODone 50 MG TABLET PO SCH (21:00)
[2019-03-07] MEDS ORDERED: MIRTAZAPINE 15 MG TABLET PO SCH (21:00)
[2019-03-07] MEDS ORDERED: metFORMIN 500 MG TABLET PO SCH (22:00)
[2019-03-08] MEDS ORDERED: ATORVASTATIN 10 MG TABLET PO SCH (09:00)
== END 2019-03-07 20:52 ==
LOC: EDUNIT# → ED 18:58
DX: R45.851 Suicidal ideations (principal); F20.9 Schizophrenia, unspecified; F31.9 Bipolar disorder, unspecified; F43.10 Post-traumatic stress disorder, unspecified; F17.200 Nicotine dependence, unspecified, uncomplicated; E11.9 Type 2 diabetes mellitus without complications; J45.901 Unspecified asthma with (acute) exacerbation; Z79.84 Long term (current) use of oral hypoglycemic drugs; Z91.5 Personal history of self-harm; Z86.73 Personal history of transient ischemic attack (TIA), and cerebral infarction without residual deficits
CPT/HCPCS: 36415; 71045; 80053; 80164; 81003; 83690; 84484; 85025; 93005; 94640; 96374; 96375; 99284; A9270; G0425; J8499; Q3014; 80306; 80307; 80320; 80329; 81001; 84443; 87086

== ENCOUNTER 2019-03-17 17:55 | Outpatient (CLI) | payer MEDICARE, MEDICAID | END 2019-03-17 17:56 | disposition critical access hospital (66) | LOC: EMS 17:55 | PROVIDERS: ATTEND Surgery | DX: M25.551 Pain in right hip (principal); R07.81 Pleurodynia; R42 Dizziness and giddiness | CPT/HCPCS: A0425; A0429 ==

== ENCOUNTER 2019-03-17 18:13 | Emergency (ER) | payer MEDICARE, MEDICAID ==
--- NOTE | 2019-03-17 19:34 | XRAY Report ---
Reason: hip/rib pain p fall Procedure Date: 03/17/2019 Accession Number: [id number] / [id number] Procedure: XR - Hip w/Pelvis 2-3V RT CPT Code: FULL RESULT: EXAM: PELVIS AND RIGHT HIP RADIOGRAPHY EXAM DATE: 03/17/2019 07:17 PM. CLINICAL HISTORY: Fall, pain. COMPARISON: HIP W/PELVIS 2-3V LT 11/23/2017 8:50 PM. TECHNIQUE: Pelvis and right hip, each 1 view. FINDINGS: Bones: Normal. No fractures or bone lesion. Joints: Normal. No dislocation. The hip joint space is preserved. Soft Tissues: Unremarkable. IMPRESSION: Negative study. RADIA
--- NOTE | 2019-03-17 19:44 | XRAY Report ---
Reason: hip/rib pain p fall Procedure Date: 03/17/2019 Accession Number: [id number] / [id number] Procedure: XR - Ribs w/PA Chest RT CPT Code: FULL RESULT: EXAM: RIGHT RIB RADIOGRAPHY EXAM DATE: 03/17/2019 07:17 PM. CLINICAL HISTORY: Hip/rib pain p fall. COMPARISON: CHEST 1 VIEW 03/05/2019 8:18 PM. TECHNIQUE: 1 view of the chest and 2 views of the ribs. FINDINGS: Bones: Mild degenerative changes. No fracture or bone lesion. Lungs: No localized infiltrate, consolidation, effusion, or pneumothorax. Mediastinum: Heart and mediastinal contours are unremarkable. Mild upper lobe vascular fullness secondary to supine technique. Other: None. IMPRESSION: No acute disease. RADIA
[2019-03-17] MEDS ORDERED: KETOROLAC 30 MG/ML VIAL IVP STA (19:51)
[2019-03-17] MEDS ORDERED: diphenhydrAMINE INJ 50 MG/ML VIAL IVP STA (19:51)
[2019-03-17] MEDS ORDERED: METOCLOPRAMIDE 10 MG/2 ML VIAL IVP STA (19:51)
--- NOTE | 2019-03-17 19:54 | ED Physician Documentation ---
History of Present Illness - Stated complaint Stated Complaint: R HIP, RIB PX/ FALL - Chief complaint Chief Complaint: Neuro - History obtained from History obtained from: Patient, EMS - History of Present Illness Timing: Yesterday (She had 2 falls yesterday because she feels lightheaded. She fell off the toilet and injured her right knee and hip. And then fell later and hit her ribs on the wall. There was no head injury but she does complain of a migraine headache. She also complains of pedal edema.) Review of Systems Ten Systems: 10 systems reviewed and negative Constitutional: denies: Fever, Chills Cardiac: denies: Chest pain / pressure, Palpitations Respiratory: denies: Dyspnea, Cough GI: denies: Abdominal Pain, Nausea, Vomiting PD PAST MEDICAL HISTORY - Past Medical History Past Medical History: Yes Cardiovascular: Angina, Other Respiratory: COPD, Pneumonia Neuro: CVA, Migraines, Seizure disorder Endocrine/Autoimmune: Type 2 diabetes GI: GERD, Hiatal hernia WIRE BENDER: None : None HEENT: None Psych: Depression, Bipolar disorder, Schizophrenia, Post traumatic stress disorder, Other Musculoskeletal: None Derm: None - Past Surgical History Past Surgical History: Yes General: Bowel surgery Ortho: Other /WIRE BENDER: 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 HEENT: Cataracts - Present Medications Home Medications: Ambulatory Orders Medication Instructions Recorded Confirmed metFORMIN [Glucophage] 500 mg ORAL TID 09/06/18 11/22/18 Divalproex ER [Depakote ER] 750 mg PO BID #30 tablet 09/29/18 11/22/18 Mirtazapine [Remeron] 15 mg ORAL QPM #5 tablet 09/29/18 11/22/18 Albuterol Sulf [Ventolin Hfa 1 - 2 puffs INH Q4HR PRN #1 inhaler 10/15/18 11/22/18 Inhaler] Baclofen 5 mg PO BID 10/28/18 11/22/18 Benzonatate [Tessalon Perle] 100 mg PO TID PRN #25 capsule 11/11/18 11/22/18 Naproxen 375 mg PO BID #20 tablet 12/31/18 Tramadol HCl 50 mg PO Q6H PRN #15 tablet 12/31/18 LORazepam [Lorazepam] 0.5 - 1 mg PO BID PRN #10 tablet 01/20/19 Diphenoxylate/Atropine [Lomotil] 1 each PO QID PRN #10 tablet 02/01/19 Doxycycline Hyclate 100 mg PO BID #20 capsule 02/07/19 Aspirin 81 mg PO 03/07/19 Atorvastatin [Lipitor] 10 mg ORAL DAILY 03/07/19 03/07/19 Mirtazapine 30 mg ORAL DAILY PM 03/07/19 03/07/19 OLANZapine [Olanzapine] 10 mg ORAL BID 03/07/19 03/07/19 Sitagliptin Phosphate [Januvia] 50 mg PO 03/07/19 metFORMIN [Glucophage] 500 mg PO BIDWM 03/07/19 03/07/19 traZODone [Desyrel] 50 mg PO DAILY PM 03/07/19 03/07/19 Hydrocodone/Acetaminophen 1 - 2 each PO Q6H PRN #5 tablet 03/17/19 [Hydrocodon-Acetaminophen 5-325] - Allergies Allergies/Adverse Reactions: Allergies Allergy/AdvReac Type Severity Reaction Status Date / Time azithromycin Allergy Severe Hives Verified 03/17/19 18:38 haloperidol Allergy Severe Anaphylaxis Verified 03/17/19 18:38 Penicillins Allergy Severe Anaphylaxis Verified 03/17/19 18:38 amoxicillin [Amoxicillin] Allergy Intermediate Rash Verified 03/17/19 18:38 grapefruit Allergy Intermediate Rash Verified 03/17/19 18:38 iodine Allergy Intermediate Rash Verified 03/17/19 18:38 Sulfa (Sulfonamide Allergy Intermediate Rash Verified 03/17/19 18:38 Antibiotics) shellfish derived Allergy Unknown Verified 03/17/19 18:38 haloperidol lactate * AdvReac Rash Verified 03/17/19 18:38 [From Haldol] bee sting Allergy Anaphylaxis Uncoded 03/17/19 18:38 - Social History Does the pt smoke?: Yes Smoking Status: Current every day smoker Does the pt drink ETOH?: Yes Does the pt have substance abuse?: No - Immunizations Immunizations are current?: No Immunizations: TDAP >10years/unknown - POLST Patient has POLST: No PD ED PE NORMAL - Vitals Vital signs reviewed: Yes - General General: Alert and oriented X 3, No acute distress - HEENT HEENT: PERRL, EOMI - Neck Neck: Supple, no meningeal sign, No bony TTP - Cardiac Cardiac: RRR, No murmur - Respiratory Respiratory: No respiratory distress, Other (Quite wheezy, declined a breathing treatment. No specific right rib tenderness.) - Extremities Extremities: Other (There is a little scrape over the right knee, no knee or hip tenderness on the right. She has trace bilateral pitting pedal edema.) - Neuro Neuro: Alert and oriented X 3, canvas baster 2-12 intact, Normal speech Eye Opening: Spontaneous Motor: Obeys Commands Verbal: Oriented GCS Score: 15 Results - Vitals Vitals: Vital Signs - 24 hr 03/17/19 03/17/19 18:32 20:26 Temperature 36.5 C Heart Rate 79 77 Respiratory 18 18 Rate Blood Pressure 133/70 H 152/85 H O2 Saturation 100 98 Oxygen O2 Source [With Activity] Room air O2 Source [Without Activity] Room air O2 Source Room air - Labs Labs: Laboratory Tests 03/17/19 03/17/19 20:05 20:05 WBC 13.0 H RBC 4.37 Hgb 11.9 L Hct 38.2 MCV 87.4 MCH 27.2 MCHC 31.2 L RDW 19.4 H Plt Count 398 MPV 11.0 H Neut # (Auto) Not Reportable Lymph # (Auto) Not Reportable [place] # (Auto) Not Reportable Eos # (Auto) Not Reportable Baso # (Auto) Not Reportable Absolute Nucleated RBC Not Reportable Total Counted 100 Band Neuts % (Manual) 0 Abnorm Lymph % (Manual) 0 Nucleated RBC % Not Reportable Neutrophils # (Manual) 4.9 Lymphocytes # (Manual) 5.3 H Monocytes # (Manual) 1.7 H Eosinophils # (Manual) 0.9 H Basophils # (Manual) 0.1 Differential Comment MANUAL DIFFERENTIAL Manual Slide Review Indicated WBC Morphology NORMAL APPEARANCE Platelet Estimate NORMAL (130-450,000) Platelet Morphology NORMAL APPEARANCE RBC Morph Micro Appear 1+ POLYCHROMASIA Sodium 143 Potassium 3.8 Chloride 109 Carbon Dioxide 25 Anion Gap 9.0 BUN 15 Creatinine 0.8 Estimated GFR (MDRD) 74 L Glucose 123 H Calcium 8.8 Total Bilirubin 0.3 AST 14 ALT 18 Alkaline Phosphatase 62 Total Protein 6.8 Albumin 3.7 Globulin 3.1 Albumin/Globulin Ratio 1.2 Lipase 21 L Last Dose Date UNKNOWN Last Dose Time UNKNOWN Valproic Acid 30.2 PD MEDICAL DECISION MAKING - ED course ED course: 54-year-old woman who is well-known to this emergency department presents after a fall injuring her hip and chest wall. She is dizzy, valproic acid toxicity is considered but not present on labs. She was given medications for migraine headache and pain medication for her injuries. Departure - Departure Disposition: 01 Home, Self Care Clinical Impression: Tobacco dependence Low back strain Qualifiers: Encounter type: initial encounter Qualified Code(s): S39.012A - Strain of mus katie, fascia and tendon of lower back, initial encounter Migraine Qualifiers: Migraine type: without aura Status migrainosus presence: with status migrainosus Intractability: not intractable Qualified Code(s): G43.001 - Migraine without aura, not intractable, with status migrainosus Chest wall contusion Qualifiers: Encounter type: initial encounter Laterality: right Qualified Code(s): S20.211A - Contusion of right front wall of thorax, initial encounter Contusion, hip and thigh Qualifiers: Encounter type: initial encounter Laterality: right Qualified Code(s): S70.01XA - Contusion of right hip, initial encounter; S70.11XA - Contusion of right thigh, initial encounter Condition: Stable Record reviewed to determine appropriate education?: Yes Instructions: ED Contusion Chest Wall Prescriptions: Hydrocodone/Acetaminophen [Hydrocodon-Acetaminophen 5-325] 1 - 2 each PO Q6H PRN #5 tablet PRN Reason: pain Comments: Call your doctor to arrange a follow-up appointment, make the next available appointment. In the interim, return anytime if worse or if new symptoms develop.
[2019-03-17 20:10] LABS: BASOPHILS % (AUTO) 0.9 %; EOSINOPHILS % (AUTO) 3.1 %; HGB - HEMOGLOBIN 11.9 g/dL (12.0-16.0); MEAN CORPUSCULAR HEMOGLOBIN 27.2 pg (27.0-31.0); MEAN CORPUSCULAR HGB CONC 31.2 g/dL (32.0-36.0); MEAN CORPUSCULAR VOLUME 87.4 fL (81.0-99.0); MONOCYTES % (AUTO) 13.3 %; NEUTROPHILS % (AUTO) 44.2 %; PLT - PLATELET COUNT 398 10^3/uL (130-450); RED BLOOD COUNT 4.37 10^6/uL (4.20-5.40); RED CELL DISTRIBUTION WIDTH 19.4 % (12.0-15.0)
[2019-03-17 20:16] LABS: ABNORMAL LYMPHS % (MANUAL) 0 %; BAND NEUTROPHILS % (MANUAL) 0 %
[2019-03-17 20:25] LABS: ALBUMIN 3.7 g/dL (3.2-5.5); ALBUMIN/GLOBULIN RATIO 1.2 (1.0-2.2); ALKALINE PHOSPHATASE 62 IU/L (42-121); ALT ALANINE AMINOTRANSFERASE 18 IU/L (10-60); AST ASPARTATE AMINOTRANSFERASE 14 IU/L (10-42); BILIRUBIN,TOTAL 0.3 mg/dL (0.2-1.0); BUN - BLOOD UREA NITROGEN 15 mg/dL (6-20); CALCIUM 8.8 mg/dL (8.5-10.3); CARBON DIOXIDE - CO2 25 mmol/L (21-32); CHLORIDE 109 mmol/L (101-111); CREATININE 0.8 mg/dL (0.4-1.0); GFR - MDRD 74 (>89); GLUCOSE 123 mg/dL (70-100); LIPASE 21 U/L (22-51); SODIUM 143 mmol/L (135-145); TOTAL PROTEIN 6.8 g/dL (6.7-8.2); VALPROIC ACID (DEPAKOTE) 30.2 ug/mL
[2019-03-17 20:32] LABS: BASOPHILS # (MANUAL) 0.1 10^3/uL (0-0.1); BASOPHILS % (MANUAL) 1 %; EOSINOPHILS # (MANUAL) 0.9 10^3/uL (0-0.7); LYMPHOCYTES # (MANUAL) 5.3 10^3/uL (1.5-3.5); LYMPHOCYTES % (MANUAL) 41 %; MONOCYTES # (MANUAL) 1.7 10^3/uL (0.0-1.0); NEUTROPHILS # (MANUAL) 4.9 10^3/uL (1.5-6.6); NEUTROPHILS % (MANUAL) 38 %
[2019-03-17 20:33] LABS: DIFFERENTIAL COMMENT MANUAL DIFFERENTIAL; PLATELET ESTIMATE, MANUAL NORMAL (130-450,000) (NORMAL); PLATELET MORPHOLOGY NORMAL APPEARANCE (NORMAL)
[2019-03-17] MEDS ORDERED: HYDROmorphone 1 MG/ML CARPUJECT IVP STA (20:50)
[2019-03-17 21:12] VITALS: BP 126/80
== END 2019-03-17 21:22 | disposition home or self-care (01) ==
LOC: EDUNIT# → ED 18:13
DX: S39.012A Strain of muscle, fascia and tendon of lower back, initial encounter (principal); G43.001 Migraine without aura, not intractable, with status migrainosus; S20.211A Contusion of right front wall of thorax, initial encounter; S70.01XA Contusion of right hip, initial encounter; S70.11XA Contusion of right thigh, initial encounter; W18.11XA Fall from or off toilet without subsequent striking against object, initial encounter; Y92.002 Bathroom of unspecified non-institutional (private) residence as the place of occurrence of the external cause; E11.9 Type 2 diabetes mellitus without complications; Z79.84 Long term (current) use of oral hypoglycemic drugs; F17.200 Nicotine dependence, unspecified, uncomplicated
CPT/HCPCS: 71101; 73502; 80053; 80164; 83690; 85025; 96374; 96375; 99284; J1170; J1200; J2765; 36415

== ENCOUNTER 2019-04-02 15:49 | Outpatient (CLI) | payer MEDICARE, MEDICAID ==
--- NOTE | 2019-04-03 09:19 | Mammography Report ---
Reason: ANNUAL SCREENING Procedure Date: 04/02/2019 Accession Number: [id number] / [id number] Procedure: RENATE - Screening Mammo w/Je CPT Code: FULL RESULT: EXAM: Screening Mammo w/Je DATE: 04/02/2019 5:01 PM CLINICAL HISTORY: Screening encounter. Personal history of ovarian and endometrial cancer. Family history of breast cancer in the mother at the age of 29, a maternal aunt at the age of 80 and a maternal grandmother at the age of 54. TECHNIQUE: (B) - Bilateral CC and MLO views were obtained. COMPARISON: 08/23/2017 through 04/02/2015. PARENCHYMAL PATTERN: (D) - The breast(s) demonstrate(s) heterogeneously dense fibroglandular parenchyma. FINDINGS: Coarse typically benign calcifications are present. There are no suspicious masses, calcifications, or areas of distortion. IMPRESSION: Benign findings. BI-RADS category 2. RECOMMENDATION: (ANNUAL) - Recommend routine annual screening mammography. BI-RADS CATEGORY: (2) - Benign Findings. STANDARD QUALIFYING STATEMENTS: 1. This examination was not reviewed with the aid of Computer-Aided Detection (CAD). 2. A negative or benign imaging report should not preclude biopsy if clinically suspicious findings are present. 3. Dense breasts may obscure an underlying neoplasm. 4. This examination was reviewed with the aid of 3D breast imaging (tomosynthesis).
== END 2019-04-02 15:50 | disposition home or self-care (01) ==
LOC: DI 15:49
PROVIDERS: ATTEND Obstetrics & Gynecology
DX: Z12.31 Encounter for screening mammogram for malignant neoplasm of breast (principal); Z80.3 Family history of malignant neoplasm of breast; Z85.43 Personal history of malignant neoplasm of ovary
CPT/HCPCS: 77063; 77067

== ENCOUNTER 2019-04-03 16:57 | Outpatient (CLI) | payer MEDICARE, MEDICAID | END 2019-04-03 16:58 | disposition critical access hospital (66) | LOC: EMS 16:57 | PROVIDERS: ATTEND Surgery | DX: M25.552 Pain in left hip (principal); R56.9 Unspecified convulsions; W19.XXXA Unspecified fall, initial encounter; Y92.092 Bedroom in other non-institutional residence as the place of occurrence of the external cause | CPT/HCPCS: A0425; A0429 ==

== ENCOUNTER 2019-04-03 17:15 | Emergency (ER) | payer MEDICARE, MEDICAID ==
[2019-04-03] MEDS ORDERED: METOCLOPRAMIDE 10 MG/2 ML VIAL IVP STA (18:08)
[2019-04-03] MEDS ORDERED: diphenhydrAMINE 25 MG CAPSULE PO STA (18:09)
[2019-04-03] MEDS ORDERED: ACETAMINOPHEN 325 MG TABLET PO STA (18:11)
--- NOTE | 2019-04-03 18:13 | ED Physician Documentation ---
PD HPI SEIZURE - Stated complaint Stated Complaint: FALL - Chief complaint Chief Complaint: Neuro - History obtained from History obtained from: Patient - History of Present Illness Witnessed: Witnessed Number of seizures: Single (possible seizure, for 2 minutes) Description of seizure activity: Generalized. No: Incontinent Injury during seizure: Other (may have fallen on buttock) Associated symptoms: Headache. No: None, Vision changes, Chest pain, Palpitations, Diaphoresis, Dyspnea, Nausea / vomiting History of seizures: Known seizure disorder Contributing factors: No: Changed meds, Head injury, Substance abuse, EtOH withdrawal, Fever Similar symptoms before: Diagnosis (hx of seizures) Recently seen: Emergency Dept - Treatment prior to arrival Treatment prior to arrival: none Review of Systems Ten Systems: 10 systems reviewed and negative Eyes: reports: Reviewed and negative Cardiac: reports: Reviewed and negative Respiratory: reports: Reviewed and negative GI: reports: Reviewed and negative Skin: reports: Reviewed and negative Musculoskeletal: reports: Joint pain. denies: Neck pain, Back pain, Extremity pain, Extremity swelling, Joint swelling Neurologic: reports: Seizure, Headache. 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 : None HEENT: None Psych: Depression, Bipolar disorder, Schizophrenia, Post traumatic stress disorder, Other Musculoskeletal: None Derm: None - Past Surgical History Past Surgical History: Yes General: Bowel surgery Ortho: Other /CONSUMER SALES REPRESENTATIVE: 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 HEENT: Cataracts - Present Medications Home Medications: Ambulatory Orders Medication Instructions Recorded Confirmed RX: metFORMIN [Glucophage] 500 mg ORAL TID 09/06/18 11/22/18 Mirtazapine [Remeron] 15 mg ORAL QPM #5 tablet 09/29/18 11/22/18 RX: Divalproex ER [Depakote ER] 750 mg PO BID #30 tablet 09/29/18 11/22/18 RX: Albuterol Sulf [Ventolin Hfa 1 - 2 puffs INH Q4HR PRN #1 inhaler 10/15/18 11/22/18 Inhaler] RX: Baclofen 5 mg PO BID 10/28/18 11/22/18 Benzonatate [Tessalon Perle] 100 mg PO TID PRN #25 capsule 11/11/18 11/22/18 RX: Naproxen 375 mg PO BID #20 tablet 12/31/18 RX: Tramadol HCl 50 mg PO Q6H PRN #15 tablet 12/31/18 RX: LORazepam [Lorazepam] 0.5 - 1 mg PO BID PRN #10 tablet 01/20/19 Diphenoxylate/Atropine [Lomotil] 1 each PO QID PRN #10 tablet 02/01/19 RX: Doxycycline Hyclate 100 mg PO BID #20 capsule 02/07/19 Atorvastatin [Lipitor] 10 mg ORAL DAILY 03/07/19 03/07/19 Mirtazapine 30 mg ORAL DAILY PM 03/07/19 03/07/19 OLANZapine [Olanzapine] 10 mg ORAL BID 03/07/19 03/07/19 RX: Aspirin 81 mg PO 03/07/19 Sitagliptin Phosphate [Januvia] 50 mg PO 03/07/19 metFORMIN [Glucophage] 500 mg PO BIDWM 03/07/19 03/07/19 traZODone [Desyrel] 50 mg PO DAILY PM 03/07/19 03/07/19 Hydrocodone/Acetaminophen 1 - 2 each PO Q6H PRN #5 tablet 03/17/19 [Hydrocodon-Acetaminophen 5-325] - Allergies Allergies/Adverse Reactions: Allergies Allergy/AdvReac Type Severity Reaction Status Date / Time azithromycin Allergy Severe Hives Verified 04/03/19 17:27 haloperidol Allergy Severe Anaphylaxis Verified 04/03/19 17:27 Penicillins Allergy Severe Anaphylaxis Verified 04/03/19 17:27 amoxicillin [Amoxicillin] Allergy Intermediate Rash Verified 04/03/19 17:27 grapefruit Allergy Intermediate Rash Verified 04/03/19 17:27 iodine Allergy Intermediate Rash Verified 04/03/19 17:27 Sulfa (Sulfonamide Allergy Intermediate Rash Verified 04/03/19 17:27 Antibiotics) shellfish derived Allergy Unknown Verified 04/03/19 17:27 haloperidol lactate * AdvReac Rash Verified 04/03/19 17:27 [From Haldol] bee sting Allergy Anaphylaxis Uncoded 03/17/19 18:38 - Social History Does the pt smoke?: Yes Smoking Status: Current every day smoker Does the pt drink ETOH?: Yes Does the pt have substance abuse?: No - Immunizations Immunizations are current?: No Immunizations: TDAP >10years/unknown - POLST Patient has POLST: No PD ED PE NORMAL - Vitals Vital signs reviewed: Yes - General General: Alert and oriented X 3, No acute distress, Well developed/nourished - HEENT HEENT: Atraumatic - Neck Neck: Supple, no meningeal sign, No JVD - Cardiac Cardiac: RRR - Respiratory Respiratory: No respiratory distress - Abdomen Abdomen: Soft, Non tender, Non distended - Female Female : Deferred - Rectal Rectal: Deferred - Derm Derm: Normal color, Warm and dry, No rash - Extremities Extremities: No deformity - Neuro Neuro: Alert and oriented X 3 Eye Opening: Spontaneous Motor: Obeys Commands Verbal: Oriented GCS Score: 15 - Psych Psych: Normal mood, Normal affect Results - Vitals Vitals: Vital Signs - 24 hr 04/03/19 04/03/19 04/03/19 17:19 17:26 17:27 Temperature 36.6 C 36.7 C Heart Rate 87 85 Respiratory 18 Rate Blood Pressure 128/71 O2 Saturation 95 97 04/03/19 04/03/19 18:26 19:21 Temperature 36.4 C L Heart Rate 83 80 Respiratory 14 14 Rate Blood Pressure 123/73 111/74 O2 Saturation 94 95 Oxygen O2 Source [With Activity] Room air O2 Source [Without Activity] Room air O2 Source Room air - Labs Labs: Laboratory Tests 04/03/19 04/03/19 18:20 18:20 Sodium 142 Potassium 4.2 Chloride 107 Carbon Dioxide 25 Anion Gap 10.0 BUN 16 Creatinine 0.7 Estimated GFR (MDRD) 87 L Glucose 100 Calcium 9.0 Valproic Acid 29.2 PD MEDICAL DECISION MAKING - ED course Complexity details: considered differential, d/w patient ED course: ddx- seizure disorder, pseudoseizure, depakote toxicity vs subtherapeutic level, electrolyte abnormality, hip contusion, hip fracture. 54 y/o F w/hx of seizure disorder with report of possible seizure today and then on ground complained of hip pain of the L hip. Pt on exam has full ROM of the hip, no shortening, no rotation, no pelvic pain. Given tylenol for hip pain. Doubt fracture. GCS15 and pt returned to baseline, has normal neuro exam and is not on blood thinners so do not feel emergent CT head is indicated. Checking depakote level and electrolytes which are pending. Depakokte level and electrolytes are normal. Pt able to ambulate around the ED here with a walker which is her baseline. She is stable for discharge with her regular seizure prophylaxis. Departure - Departure Disposition: 01 Home, Self Care Clinical Impression: Seizure disorder, Contusion, hip Condition: Stable Record reviewed to determine appropriate education?: Yes Instructions: ED Contusion Hip Follow-Up: Alethea Bolanos ARNP [Primary Care Provider] - Comments: Your examination was suggestive of a left hip contusion. Your labs and Depakote levels were normal. This may have been a break through seizure. You can follow up with your PCP for further management of your seizure disorder. Discharge Date/Time: 04/03/19 19:32
[2019-04-03 18:45] LABS: CREATININE 0.7 mg/dL (0.4-1.0)
[2019-04-03 18:46] LABS: VALPROIC ACID (DEPAKOTE) 29.2 ug/mL
[2019-04-03 19:21] VITALS: BP 111/74
== END 2019-04-03 19:32 | disposition home or self-care (01) ==
LOC: EDUNIT# → ED 17:15
DX: G40.909 Epilepsy, unspecified, not intractable, without status epilepticus (principal); S70.02XA Contusion of left hip, initial encounter; E11.9 Type 2 diabetes mellitus without complications; Z79.84 Long term (current) use of oral hypoglycemic drugs; F17.200 Nicotine dependence, unspecified, uncomplicated
CPT/HCPCS: 36415; 80048; 80164; 96374; 99283; 99284; A9270; J2765

== ENCOUNTER 2019-04-20 14:41 | Outpatient (CLI) | payer MEDICARE, MEDICAID | END 2019-04-20 14:42 | disposition critical access hospital (66) | LOC: EMS 14:41 | PROVIDERS: ATTEND Surgery | DX: M25.551 Pain in right hip (principal); W01.0XXA Fall on same level from slipping, tripping and stumbling without subsequent striking against object, initial encounter; Y92.092 Bedroom in other non-institutional residence as the place of occurrence of the external cause | CPT/HCPCS: A0425; A0429 ==

== ENCOUNTER 2019-04-20 15:03 | Emergency (ER) | payer MEDICARE, MEDICAID ==
[2019-04-20] MEDS ORDERED: KETOROLAC 60 MG/2 ML VIAL IM STA (16:31)
--- NOTE | 2019-04-20 17:40 | XRAY Report ---
Reason: fall hip pain Procedure Date: 04/20/2019 Accession Number: [id number] / [id number] Procedure: XR - Hip w/Pelvis 2-3V RT CPT Code: FULL RESULT: EXAM: RIGHT HIP RADIOGRAPHY EXAM DATE: 04/20/2019 04:55 PM. CLINICAL HISTORY: Fall hip pain. COMPARISON: HIP W/PELVIS 2-3V RT 03/17/2019 7:04 PM. TECHNIQUE: 2 views. FINDINGS: Bones: No fracture or focal bony lesion. Joints: No evidence of dislocation. Soft Tissues: No unexpected soft tissue findings. IMPRESSION: No evidence of fracture or dislocation. RADIA
--- NOTE | 2019-04-20 17:42 | XRAY Report ---
Reason: fall pain to knee Procedure Date: 04/20/2019 Accession Number: [id number] / [id number] Procedure: XR - Knee 4 View RT CPT Code: FULL RESULT: EXAM: RIGHT KNEE RADIOGRAPHY EXAM DATE: 04/20/2019 04:57 PM. CLINICAL HISTORY: Fall pain to knee. COMPARISON: KNEE 4 VIEW BILAT 10/28/2018 5:01 PM. TECHNIQUE: 4 views. FINDINGS: Bones: No evidence of acute fracture. Stable sclerotic focus within medial tibia. This could represent a bone infarct. Joints: No evidence of dislocation. Soft Tissues: No unexpected soft tissue findings. IMPRESSION: No evidence of fracture or dislocation. RADIA
--- NOTE | 2019-04-20 17:43 | XRAY Report ---
Reason: fall pain to lateral malleolus Procedure Date: 04/20/2019 Accession Number: [id number] / [id number] Procedure: XR - Ankle 3 View RT CPT Code: FULL RESULT: EXAM: RIGHT ANKLE RADIOGRAPHY EXAM DATE: 04/20/2019 04:49 PM. CLINICAL HISTORY: Fall pain to lateral malleolus. COMPARISON: None. TECHNIQUE: 3 views. FINDINGS: Bones: No acute fracture or focal bony lesion. Sclerotic focus within the distal tibial diaphysis probably represents a bone infarct. Joints: No evidence of dislocation. Soft Tissues: No unexpected soft tissue findings. IMPRESSION: No evidence of fracture or dislocation. RADIA
--- NOTE | 2019-04-20 18:09 | ED Physician Documentation ---
PD HPI LOWER EXT INJURY - Stated complaint Stated Complaint: FALL - Chief complaint Chief Complaint: Ext Problem - History obtained from History obtained from: Patient, EMS - History of Present Illness PD HPI LOW EXT INJURY LOCATION: Right, Hip, Knee, Ankle Type of injury: Fall Where injury occurred: Home Timing - onset: Today Timing - duration: Minutes Timing - details: Abrupt onset, Still present Improved by: Rest, Immobilization Worsened by: Moving, Palpating Associated symptoms: No: Weakness, Numbness, Tingling, Swelling Contributing factors: No: Anticoagulated Similar symptoms before: Diagnosis (hip contusion) Recently seen: Emergency Dept - Additional information Additional information: 54-year-old schzioaffective female well-known to this emergency department tripped using her walker and has fallen onto her right side she is complaining of pain in her right hip knee and ankle. Review of Systems Constitutional: denies: Fever Eyes: denies: Decreased vision Nose: denies: Congestion Throat: denies: Sore throat Respiratory: denies: Cough GI: denies: Vomiting Musculoskeletal: reports: Extremity pain, Pain with weight bearing. denies: Neck pain, Back pain Neurologic: denies: Generalized weakness, Focal weakness, Numbness PD PAST MEDICAL HISTORY - Past Medical History Cardiovascular: Angina, Other Respiratory: COPD, Pneumonia Neuro: CVA, Migraines, Seizure disorder Endocrine/Autoimmune: Type 2 diabetes GI: GERD, Hiatal hernia CAT BREEDER: None : None HEENT: None Psych: Depression, Bipolar disorder, Schizophrenia, Post traumatic stress disorder, Other Musculoskeletal: None Derm: None - Past Surgical History Past Surgical History: Yes General: Bowel surgery Ortho: Other /CAT BREEDER: 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 HEENT: Cataracts - Present Medications Home Medications: Ambulatory Orders Medication Instructions Recorded Confirmed metFORMIN [Glucophage] 500 mg ORAL TID 09/06/18 11/22/18 Divalproex ER [Depakote ER] 750 mg PO BID #30 tablet 09/29/18 11/22/18 Mirtazapine [Remeron] 15 mg ORAL QPM #5 tablet 09/29/18 11/22/18 Albuterol Sulf [Ventolin Hfa 1 - 2 puffs INH Q4HR PRN #1 inhaler 10/15/18 11/22/18 Inhaler] Baclofen 5 mg PO BID 10/28/18 11/22/18 Benzonatate [Tessalon Perle] 100 mg PO TID PRN #25 capsule 11/11/18 11/22/18 Naproxen 375 mg PO BID #20 tablet 12/31/18 Tramadol HCl 50 mg PO Q6H PRN #15 tablet 12/31/18 LORazepam [Lorazepam] 0.5 - 1 mg PO BID PRN #10 tablet 01/20/19 Diphenoxylate/Atropine [Lomotil] 1 each PO QID PRN #10 tablet 02/01/19 Doxycycline Hyclate 100 mg PO BID #20 capsule 02/07/19 Aspirin 81 mg PO 03/07/19 Atorvastatin [Lipitor] 10 mg ORAL DAILY 03/07/19 03/07/19 Mirtazapine 30 mg ORAL DAILY PM 03/07/19 03/07/19 OLANZapine [Olanzapine] 10 mg ORAL BID 03/07/19 03/07/19 Sitagliptin Phosphate [Januvia] 50 mg PO 03/07/19 metFORMIN [Glucophage] 500 mg PO BIDWM 03/07/19 03/07/19 traZODone [Desyrel] 50 mg PO DAILY PM 03/07/19 03/07/19 Hydrocodone/Acetaminophen 1 - 2 each PO Q6H PRN #5 tablet 03/17/19 [Hydrocodon-Acetaminophen 5-325] - Allergies Allergies/Adverse Reactions: Allergies Allergy/AdvReac Type Severity Reaction Status Date / Time azithromycin Allergy Severe Hives Verified 04/20/19 15:14 haloperidol Allergy Severe Anaphylaxis Verified 04/20/19 15:14 Penicillins Allergy Severe Anaphylaxis Verified 04/20/19 15:14 amoxicillin [Amoxicillin] Allergy Intermediate Rash Verified 04/20/19 15:14 grapefruit Allergy Intermediate Rash Verified 04/20/19 15:14 iodine Allergy Intermediate Rash Verified 04/20/19 15:14 Sulfa (Sulfonamide Allergy Intermediate Rash Verified 04/20/19 15:14 Antibiotics) shellfish derived Allergy Unknown Verified 04/20/19 15:14 haloperidol lactate * AdvReac Rash Verified 04/20/19 15:14 [From Haldol] bee sting Allergy Anaphylaxis Uncoded 04/20/19 15:14 - Social History Does the pt smoke?: Yes Smoking Status: Current every day smoker Does the pt drink ETOH?: Yes Does the pt have substance abuse?: No - Immunizations Immunizations are current?: No Immunizations: TDAP >10years/unknown - POLST Patient has POLST: No PD ED PE NORMAL - Vitals Vital signs reviewed: Yes (hypertenisve ) - General General: Alert and oriented X 3, No acute distress, Well developed/nourished - HEENT HEENT: Atraumatic, PERRL, EOMI, Other (edentulous ) - Respiratory Respiratory: No respiratory distress - Derm Derm: Normal color, Warm and dry, No rash - Extremities Extremities: No deformity, No edema, Other (There is pain to palpation of the right trochanter and pain with ROM of the hip. There is pain to palpation of the right knee without swelling. the ligaments are stable to testing and there is no obvious joint effusion. There is mild tenderness without swelling to the right lateral malleolus ) - Neuro Neuro: No motor deficit, No sensory deficit Eye Opening: Spontaneous Motor: Obeys Commands Verbal: Oriented GCS Score: 15 - Psych Psych: Normal mood, Normal affect Results - Vitals Vitals: Vital Signs - 24 hr 04/20/19 15:08 Temperature 36.8 C Heart Rate 93 Respiratory 18 Rate Blood Pressure 134/74 H O2 Saturation 99 Oxygen O2 Source [With Activity] Room air O2 Source [Without Activity] Room air O2 Source Room air - Rads (name of study) hip Radiology: Prelim report reviewed (Impression: No evidence of fracture or dislocation.), EMP read indepedently, See rad report knee Radiology: Prelim report reviewed (Impression: No evidence of fracture or dislocation.), EMP read indepedently, See rad report ankle Radiology: Prelim report reviewed (Impression: No evidence of fracture or dislocation.), EMP read indepedently, See rad report PD MEDICAL DECISION MAKING - ED course Complexity details: reviewed results, re-evaluated patient, considered differential, d/w patient ED course: 54-year-old female with a fall onto her right side complains of pain to her whole right side especially to the hip knee and ankle. Her upper extremities are without obvious injury examination of the right wrist elbow and shoulder are with full range of motion and no swelling. The exam of the right lower extremity shows some pain to the trochanter and soft tissues of the right hip as well as pain to the right knee without ligamentous injury and pain to the ankle without swelling. X-rays are without evidence of fracture the patient is placed into a knee immobilizer she is administered Toradol 60 mg IM. Departure - Departure Disposition: 01 Home, Self Care Clinical Impression: Contusion of right hip region Right knee sprain Qualifiers: Encounter type: initial encounter Involved ligament of knee: unspecified ligament Qualified Code(s): S83.91XA - Sprain of unspecified site of right knee, initial encounter Contusion of right ankle Qualifiers: Encounter type: initial encounter Qualified Code(s): S90.01XA - Contusion of right ankle, initial encounter Condition: Stable Instructions: ED Contusion Foot, ED Sprain Knee, ED Contusion Hip Follow-Up: Alethea Bolanos ARNP [Primary Care Provider] -
[2019-04-20 18:42] VITALS: BP 115/76
== END 2019-04-20 18:40 | disposition home or self-care (01) ==
LOC: ED 15:03
DX: S83.91XA Sprain of unspecified site of right knee, initial encounter (principal); S70.01XA Contusion of right hip, initial encounter; S90.01XA Contusion of right ankle, initial encounter; W01.0XXA Fall on same level from slipping, tripping and stumbling without subsequent striking against object, initial encounter; Y93.01 Activity, walking, marching and hiking; Y92.009 Unspecified place in unspecified non-institutional (private) residence as the place of occurrence of the external cause; F25.9 Schizoaffective disorder, unspecified; E11.9 Type 2 diabetes mellitus without complications; Z79.84 Long term (current) use of oral hypoglycemic drugs; Z79.82 Long term (current) use of aspirin; F17.200 Nicotine dependence, unspecified, uncomplicated
CPT/HCPCS: 96372; 99284

== ENCOUNTER 2019-04-29 16:24 | Outpatient (CLI) | payer MEDICARE, MEDICAID | END 2019-04-29 16:25 | disposition critical access hospital (66) | LOC: EMS 16:24 | PROVIDERS: ATTEND Surgery | DX: M54.9 Dorsalgia, unspecified (principal); M54.2 Cervicalgia; W01.0XXA Fall on same level from slipping, tripping and stumbling without subsequent striking against object, initial encounter; Y92.092 Bedroom in other non-institutional residence as the place of occurrence of the external cause | CPT/HCPCS: A0425; A0429 ==

== ENCOUNTER 2019-04-29 16:42 | Emergency (ER) | payer MEDICARE, MEDICAID ==
[2019-04-29 16:50] VITALS: BP 130/92
--- NOTE | 2019-04-29 17:17 | ED Physician Documentation ---
History of Present Illness - Stated complaint Stated Complaint: GLF - Chief complaint Chief Complaint: Back Pain - Additonal information Additional information: This is a 54-year-old female with a history of diabetes, HTN, seizure disorder, who presents with head and neck pain after a fall. Patient states that she was getting up in her room when she tripped over her sheets and she fell hitting her forehead. She has a headache, she also has some pain in her neck. She states that she has some soreness in her arms and back all over but her head and neck are most severe. She does have a history of a seizure disorder, she does not think she lost consciousness, does not think this was a seizure. She denies urinary incontinence or bleeding from her mouth Review of Systems Constitutional: denies: Fever Throat: denies: Dental pain / toothache Cardiac: denies: Chest pain / pressure Respiratory: denies: Dyspnea GI: denies: Abdominal Pain Musculoskeletal: reports: Neck pain Neurologic: denies: Generalized weakness PD PAST MEDICAL HISTORY - Past Medical History Cardiovascular: Angina, Other Respiratory: COPD, Pneumonia Neuro: CVA, Migraines, Seizure disorder Endocrine/Autoimmune: Type 2 diabetes GI: GERD, Hiatal hernia HOME APPRAISER: None : None HEENT: None Psych: Depression, Bipolar disorder, Schizophrenia, Post traumatic stress disorder, Other Musculoskeletal: None Derm: None - Past Surgical History Past Surgical History: Yes General: Bowel surgery Ortho: Other /HOME APPRAISER: 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 HEENT: Cataracts - Present Medications Home Medications: Ambulatory Orders Medication Instructions Recorded Confirmed RX: metFORMIN [Glucophage] 500 mg ORAL TID 09/06/18 11/22/18 Mirtazapine [Remeron] 15 mg ORAL QPM #5 tablet 09/29/18 11/22/18 RX: Divalproex ER [Depakote ER] 750 mg PO BID #30 tablet 09/29/18 11/22/18 RX: Albuterol Sulf [Ventolin Hfa 1 - 2 puffs INH Q4HR PRN #1 inhaler 10/15/18 11/22/18 Inhaler] RX: Baclofen 5 mg PO BID 10/28/18 11/22/18 Benzonatate [Tessalon Perle] 100 mg PO TID PRN #25 capsule 11/11/18 11/22/18 RX: Naproxen 375 mg PO BID #20 tablet 12/31/18 RX: Tramadol HCl 50 mg PO Q6H PRN #15 tablet 12/31/18 RX: LORazepam [Lorazepam] 0.5 - 1 mg PO BID PRN #10 tablet 01/20/19 Diphenoxylate/Atropine [Lomotil] 1 each PO QID PRN #10 tablet 02/01/19 RX: Doxycycline Hyclate 100 mg PO BID #20 capsule 02/07/19 Atorvastatin [Lipitor] 10 mg ORAL DAILY 03/07/19 03/07/19 Mirtazapine 30 mg ORAL DAILY PM 03/07/19 03/07/19 OLANZapine [Olanzapine] 10 mg ORAL BID 03/07/19 03/07/19 RX: Aspirin 81 mg PO 03/07/19 Sitagliptin Phosphate [Januvia] 50 mg PO 03/07/19 metFORMIN [Glucophage] 500 mg PO BIDWM 03/07/19 03/07/19 traZODone [Desyrel] 50 mg PO DAILY PM 03/07/19 03/07/19 Hydrocodone/Acetaminophen 1 - 2 each PO Q6H PRN #5 tablet 03/17/19 [Hydrocodon-Acetaminophen 5-325] - Allergies Allergies/Adverse Reactions: Allergies Allergy/AdvReac Type Severity Reaction Status Date / Time azithromycin Allergy Severe Hives Verified 04/29/19 16:50 haloperidol Allergy Severe Anaphylaxis Verified 04/29/19 16:50 Penicillins Allergy Severe Anaphylaxis Verified 04/29/19 16:50 amoxicillin [Amoxicillin] Allergy Intermediate Rash Verified 04/29/19 16:50 grapefruit Allergy Intermediate Rash Verified 04/29/19 16:50 iodine Allergy Intermediate Rash Verified 04/29/19 16:50 Sulfa (Sulfonamide Allergy Intermediate Rash Verified 04/29/19 16:50 Antibiotics) shellfish derived Allergy Unknown Verified 04/29/19 16:50 haloperidol lactate * AdvReac Rash Verified 04/29/19 16:50 [From Haldol] bee sting Allergy Anaphylaxis Uncoded 04/29/19 16:50 - Social History Does the pt smoke?: Yes Smoking Status: Current every day smoker Does the pt drink ETOH?: Yes Does the pt have substance abuse?: No - Immunizations Immunizations are current?: No Immunizations: TDAP >10years/unknown - POLST Patient has POLST: No PD ED PE NORMAL - Vitals Vital signs reviewed: Yes - General General: Alert and oriented X 3 - HEENT HEENT: Other (Very small area of erythema, 1cm x 1cm in diameter, over the forehead. No other signs of trauma.) - Neck Neck: Other (Mild C6-7 tenderness to palpation in the midline. Atraumatic in appearance.) - Cardiac Cardiac: RRR - Respiratory Respiratory: No respiratory distress, Clear bilaterally - Abdomen Abdomen: Normal bowel sounds, Soft, Non tender, Non distended - Back Back: No spinal TTP, Other (Atraumatic in appearance. Slight T spine paraspinous tenderness.) - Derm Derm: Warm and dry - Extremities Extremities: No deformity - Neuro Neuro: Alert and oriented X 3 - Psych Psych: Normal mood, Normal affect Results - Vitals Vitals: Vital Signs - 24 hr 04/29/19 16:46 Temperature 36.7 C Heart Rate 73 Respiratory 19 Rate Blood Pressure 130/92 H O2 Saturation 93 Oxygen O2 Source [With Activity] Room air O2 Source [Without Activity] Room air O2 Source Room air PD MEDICAL DECISION MAKING - ED course Complexity details: considered differential (Head injury, concussion, ICH, fracture, spine injury, sprain, strain, contusion) ED course: On exam patient is in c-spine precuations. She does have C spine tenderness and head tenderness. No significant T or L pain or tenderness. CT head and C spine performed and show no acute abnormality. Her c-collar was cleared and she has excellent ROM of her neck, no midline tenderness, no neuro deficit. Her extremities are atraumatic. The fall was mechanical. She is now ambulatory, ruben erating PO, feeling very well, and desiring to go home. Return precuations discussed and PCP follow up instructed. Pt agreed and was discharged home. Departure - Departure Disposition: Home, Self Care Clinical Impression: Head contusion Qualifiers: Encounter type: initial encounter Contusion of head detail: scalp Qualified Code(s): S00.03XA - Contusion of scalp, initial encounter Condition: Good Instructions: ED Head Injury Closed Follow-Up: Alethea Bolanos ARNP [Primary Care Provider] - Within 1 week Comments: You were seen today for head and neck pain after a fall. Your imaging does not show signs of a fracture. You may take [id number] pain control medications, rest, and ice these areas. Follow-up with your primary care provider Discharge Date/Time: 04/29/19 18:46
--- NOTE | 2019-04-29 18:12 | CT Report ---
Reason: Fall, headache and neck pain Procedure Date: 04/29/2019 Accession Number: [id number] / [id number] Procedure: CT - CERVICAL SPINE WO CPT Code: FULL RESULT: EXAM: CT CERVICAL SPINE WITHOUT CONTRAST DATE: 04/29/2019 05:36 PM. HISTORY: 54-year-old presenting after a fall with headache and neck pain. Evaluate for cervical pathology. COMPARISONS: CT head 04/29/2019, 02/20/2019; CTA neck 11/19/2018. TECHNIQUE: Thin-section axial images were acquired of the cervical spine without contrast. Post-processing: Coronal and sagittal reformats. Other: None. In accordance with CT protocol optimization, one or more of the following dose reduction techniques were utilized for this exam: automated exposure control, adjustment of mA and/or KV based on patient size, or use of iterative reconstructive technique. FINDINGS: Alignment: Straightening of the normal cervical lordosis. No scoliosis or spondylolisthesis. Bones: No fracture or bone lesion. Interspace Levels/Facets: C1-C2: Unremarkable. C2-C3: Mild endplate degenerative change with mild to moderate loss of disk height. There is vacuum disk phenomenon. Small to moderate right subarticular disk osteophyte complex. Bilateral uncovertebral osteophyte and arthritic facet disease. Mild spinal canal stenosis and effacement of the right lateral recess. Severe right neural foraminal narrowing. C3-C4: Small broad-based disk osteophyte complex. Bilateral uncovertebral and arthritic facet disease. Mild spinal canal stenosis. Mild to moderate left neural foraminal narrowing. C4-C5: Small broad-based disk osteophyte complex. Bilateral uncovertebral osteophyte and arthritic facet disease. Mild spinal canal stenosis. Mild bilateral neural foraminal narrowing. C5-C6: Mild to moderately degenerative change with moderate loss of disk height. Small to moderate broad-based disk osteophyte complex. Bilateral uncovertebral osteophyte and arthritic facet disease. Mild to moderate spinal canal stenosis. Severe right and moderate left neural foraminal narrowing. C6-C7: Mild to moderate endplate degenerative change with mild to moderate loss of disk height. Small broad-based disk osteophyte complex. Bilateral uncovertebral osteophyte and arthritic facet disease. Mild spinal canal stenosis. Mild right and mild to moderate left neural foraminal narrowing. C7-T1: Anterior spurring. Mild to moderate endplate degenerative change, Schmorl's node formation, and mild to moderate loss of disk height. Bilateral arthritic facet disease. No spinal canal stenosis. No definite neural foraminal narrowing. Musculature: Normal. No fatty atrophy. Other: The paravertebral and prevertebral soft tissues are unremarkable. There is effacement of the left piriform sinus which may be physiologic. Otherwise visualized pharynx and larynx appear normal. Visualized thyroid appears normal. Moderate bilateral emphysematous changes seen. IMPRESSION: 1. No definite acute fracture or traumatic subluxation seen. 2. Multilevel degenerative changes, as detailed above. [facility]
--- NOTE | 2019-04-29 18:16 | CT Report ---
Reason: Fall, headache and neck pain Procedure Date: 04/29/2019 Accession Number: [id number] / [id number] Procedure: CT - HEAD WO CPT Code: FULL RESULT: EXAM: CT HEAD EXAM DATE: 04/29/2019 05:36 PM. CLINICAL HISTORY: 54-year-old presenting after a fall with headache and neck pain. Evaluate for intracranial pathology. COMPARISON: HEAD W/O 02/20/2019 11:46 PM. TECHNIQUE: Multiaxial CT images were obtained from the foramen magnum to the vertex. Reformats: Sagittal and coronal. IV contrast: None. In accordance with CT protocol optimization, one or more of the following dose reduction techniques were utilized for this exam: automated exposure control, adjustment of mA and/or KV based on patient size, or use of iterative reconstructive technique. FINDINGS: Parenchyma: No intraparenchymal hemorrhage. No evidence of mass, midline shift, or CT findings of infarction. Lora-white differentiation is distinct. Mild bilateral areas of white matter hypoattenuation seen that appear similar CT head 02/20/2019. Extraaxial Spaces: Normal for age. No subdural or epidural collections identified. Ventricles: Normal in size and position. Sinuses and Orbits: Changes of bilateral lens replacement. Visualized paranasal sinuses, mastoid air cells and middle ear cavities are clear. Bones: No evidence of fracture or calvarial defect. Other: Vascular calcifications Of the cavernous and supraclinoid ICA segments. IMPRESSION: 1. No definite acute intracranial pathology seen; specifically, no acute infarct, acute intracranial hemorrhage, mass, hydrocephalus, or midline shift. 2. No definite calvarial fracture. 3. White matter changes seen that appears similar CT head 02/20/2019 and while nonspecific, may represent sequela of chronic small vessel ischemic disease. [facility]
== END 2019-04-29 18:46 | disposition home or self-care (01) ==
LOC: EDUNIT# → ED 16:42
DX: S00.83XA Contusion of other part of head, initial encounter (principal); W01.0XXA Fall on same level from slipping, tripping and stumbling without subsequent striking against object, initial encounter; Y93.89 Activity, other specified; Y92.003 Bedroom of unspecified non-institutional (private) residence as the place of occurrence of the external cause; M50.30 Other cervical disc degeneration, unspecified cervical region; M48.02 Spinal stenosis, cervical region; E11.9 Type 2 diabetes mellitus without complications; Z79.84 Long term (current) use of oral hypoglycemic drugs; I10 Essential (primary) hypertension; G40.909 Epilepsy, unspecified, not intractable, without status epilepticus; Z79.82 Long term (current) use of aspirin; F17.200 Nicotine dependence, unspecified, uncomplicated
CPT/HCPCS: 70450; 72125; 99282; 99284

== ENCOUNTER 2019-05-15 16:18 | Outpatient (CLI) | payer MEDICARE, MEDICAID | END 2019-05-15 16:19 | disposition critical access hospital (66) | LOC: EMS 16:18 | PROVIDERS: ATTEND Surgery | DX: R51 Headache (principal) | CPT/HCPCS: A0425; A0429 ==

== ENCOUNTER 2019-05-15 16:40 | Emergency (ER) | payer MEDICARE, MEDICAID ==
[2019-05-15] MEDS ORDERED: diphenhydrAMINE 25 MG CAPSULE PO STA (17:00)
--- NOTE | 2019-05-15 18:20 | ED Physician Documentation ---
History of Present Illness - Stated complaint Stated Complaint: MIGRAINE - Chief complaint Chief Complaint: Neuro - Additonal information Additional information: This is a 54-year-old female who is well-known to this emergency department, she has a history of diabetes, seizure disorder, migraines, and she presents today with a migraine headache. She states this began at 9 AM, was gradual in onset has been getting worse throughout the day. She tried taking 1000 mg of acetaminophen with no improvement. She has some light sensitivity and nausea. She denies weakness numbness or tingling. She states this feels like her typical migraine except it is little more severe. She denies any head trauma. Review of Systems Constitutional: denies: Fever Eyes: reports: Photophobia Cardiac: denies: Chest pain / pressure Respiratory: denies: Dyspnea GI: denies: Abdominal Pain Musculoskeletal: denies: Neck pain Neurologic: reports: Headache. denies: Generalized weakness PD PAST MEDICAL HISTORY - Past Medical History Cardiovascular: Angina, Other Respiratory: COPD, Pneumonia Neuro: CVA, Migraines, Seizure disorder Endocrine/Autoimmune: Type 2 diabetes GI: GERD, Hiatal hernia TILE BURNER: None : None HEENT: None Psych: Depression, Bipolar disorder, Schizophrenia, Post traumatic stress disorder, Other Musculoskeletal: None Derm: None - Past Surgical History Past Surgical History: Yes General: Bowel surgery Ortho: Other /TILE BURNER: 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 HEENT: Cataracts - Present Medications Home Medications: Ambulatory Orders Medication Instructions Recorded Confirmed metFORMIN [Glucophage] 500 mg ORAL TID 09/06/18 11/22/18 Divalproex ER [Depakote ER] 750 mg PO BID #30 tablet 09/29/18 11/22/18 Mirtazapine [Remeron] 15 mg ORAL QPM #5 tablet 09/29/18 11/22/18 Albuterol Sulf [Ventolin Hfa 1 - 2 puffs INH Q4HR PRN #1 inhaler 10/15/18 11/22/18 Inhaler] Baclofen 5 mg PO BID 10/28/18 11/22/18 Benzonatate [Tessalon Perle] 100 mg PO TID PRN #25 capsule 11/11/18 11/22/18 Naproxen 375 mg PO BID #20 tablet 12/31/18 Tramadol HCl 50 mg PO Q6H PRN #15 tablet 12/31/18 LORazepam [Lorazepam] 0.5 - 1 mg PO BID PRN #10 tablet 01/20/19 Diphenoxylate/Atropine [Lomotil] 1 each PO QID PRN #10 tablet 02/01/19 Doxycycline Hyclate 100 mg PO BID #20 capsule 02/07/19 Aspirin 81 mg PO 03/07/19 Atorvastatin [Lipitor] 10 mg ORAL DAILY 03/07/19 03/07/19 Mirtazapine 30 mg ORAL DAILY PM 03/07/19 03/07/19 OLANZapine [Olanzapine] 10 mg ORAL BID 03/07/19 03/07/19 Sitagliptin Phosphate [Januvia] 50 mg PO 03/07/19 metFORMIN [Glucophage] 500 mg PO BIDWM 03/07/19 03/07/19 traZODone [Desyrel] 50 mg PO DAILY PM 03/07/19 03/07/19 Hydrocodone/Acetaminophen 1 - 2 each PO Q6H PRN #5 tablet 03/17/19 [Hydrocodon-Acetaminophen 5-325] SUMAtriptan succinate [Sumatriptan 6 mg SQ DAILY PRN #2 units 05/15/19 Succinate] - Allergies Allergies/Adverse Reactions: Allergies Allergy/AdvReac Type Severity Reaction Status Date / Time azithromycin Allergy Severe Hives Verified 04/29/19 16:50 haloperidol Allergy Severe Anaphylaxis Verified 04/29/19 16:50 Penicillins Allergy Severe Anaphylaxis Verified 04/29/19 16:50 amoxicillin [Amoxicillin] Allergy Intermediate Rash Verified 04/29/19 16:50 grapefruit Allergy Intermediate Rash Verified 04/29/19 16:50 iodine Allergy Intermediate Rash Verified 04/29/19 16:50 Sulfa (Sulfonamide Allergy Intermediate Rash Verified 04/29/19 16:50 Antibiotics) shellfish derived Allergy Unknown Verified 04/29/19 16:50 haloperidol lactate * AdvReac Rash Verified 04/29/19 16:50 [From Haldol] bee sting Allergy Anaphylaxis Uncoded 04/29/19 16:50 - Social History Does the pt smoke?: Yes Smoking Status: Current every day smoker Does the pt drink ETOH?: Yes Does the pt have substance abuse?: No - Immunizations Immunizations are current?: No Immunizations: TDAP >10years/unknown - POLST Patient has POLST: No PD ED PE NORMAL - Vitals Vital signs reviewed: Yes - General General: Alert and oriented X 3 - HEENT HEENT: Atraumatic, PERRL - Neck Neck: Supple, no meningeal sign - Cardiac Cardiac: RRR - Respiratory Respiratory: No respiratory distress, Clear bilaterally - Abdomen Abdomen: Soft, Non tender, Non distended - Derm Derm: Warm and dry - Extremities Extremities: No deformity - Neuro Neuro: Alert and oriented X 3, rail transportation tabeler 2-12 intact, No motor deficit, No sensory deficit, Normal speech - Psych Psych: Normal mood, Normal affect Results - Vitals Vitals: Vital Signs - 24 hr 05/15/19 05/15/19 05/15/19 16:49 17:29 19:58 Temperature 36.4 C L 36.4 C L 36.9 C Heart Rate 83 90 77 Respiratory 18 18 16 Rate Blood Pressure 119/67 134/73 H 146/80 H O2 Saturation 93 93 91 L Oxygen O2 Source [With Activity] Room air O2 Source [Without Activity] Room air O2 Source Room air PD MEDICAL DECISION MAKING - ED course Complexity details: considered differential (migraine, tension headache, intracranial increased pressure, ICH) ED course: Pt has a non-focal neurologic exam, and presents with a headache that is identical in character to her typical migraine, and without red flag symptoms. IV inserted, patient was given toradol, reglan, benadryl with minimal relief. She states that sumatriptan usually helps so was given a dose of this and had complete resolution of her headache. She is well appearing on repeat exam. I discussed return precuations and follow up. She has an appt with a neurologist established. I prescribed a small amount of sumatriptan for her. Patient was subsequently discharged. Departure - Departure Disposition: 01 Home, Self Care Clinical Impression: Migraine Qualifiers: Migraine type: unspecified Status migrainosus presence: without status migrainosus Intractability: not intractable Qualified Code(s): G43.909 - Migraine, unspecified, not intractable, without status migrainosus Condition: Good Instructions: ED Headache Migraine Follow-Up: Alethea Bolanos ARNP [Primary Care Provider] - Within 1 week (For follow up on headaches) Prescriptions: SUMAtriptan succinate [Sumatriptan Succinate] 6 mg SQ DAILY PRN #2 units PRN Reason: Headache Comments: You were seen today for headache, which improved with sumatriptan. I am pr escribing a small amount of the sumatriptan, but please follow-up with your neurologist and your primary care provider on your headaches as soon as possible. If you develop a new or worsening headache, persistent vomiting, or any other concerning symptoms return to the emergency department. Discharge Date/Time: 05/15/19 20:45
[2019-05-15] MEDS ORDERED: KETOROLAC 15 MG/ML VIAL IVP STA (18:26)
[2019-05-15] MEDS ORDERED: METOCLOPRAMIDE 10 MG/2 ML VIAL IVP STA (18:26)
[2019-05-15] MEDS ORDERED: SODIUM CHLORIDE 0.9% 1,000 ML IV ONE (18:26)
[2019-05-15] MEDS ORDERED: SUMAtriptan 6 MG/0.5 ML VIAL SUBQ STA (19:24)
[2019-05-15 19:59] VITALS: BP 146/80
== END 2019-05-15 20:45 | disposition home or self-care (01) ==
LOC: EDUNIT# → ED 16:40
DX: G43.909 Migraine, unspecified, not intractable, without status migrainosus (principal); E11.9 Type 2 diabetes mellitus without complications; Z79.84 Long term (current) use of oral hypoglycemic drugs; G40.909 Epilepsy, unspecified, not intractable, without status epilepticus; F17.200 Nicotine dependence, unspecified, uncomplicated
CPT/HCPCS: 96361; 96372; 96374; 99283; 99284; A9270; J2765

== ENCOUNTER 2019-05-19 12:24 | Outpatient (CLI) | payer MEDICARE, MEDICAID | END 2019-05-19 12:25 | disposition critical access hospital (66) | LOC: EMS 12:24 | PROVIDERS: ATTEND Surgery | DX: R51 Headache (principal); R07.89 Other chest pain | CPT/HCPCS: A0425; A0427 ==

== ENCOUNTER 2019-05-19 13:09 | Emergency (ER) | payer MEDICARE, MEDICAID ==
[2019-05-19 13:38] LABS: BASOPHILS % (AUTO) 0.2 %; HGB - HEMOGLOBIN 11.7 g/dL (12.0-16.0); LYMPHOCYTES # (AUTO) 1.9 10^3/uL (1.5-3.5); LYMPHOCYTES % (AUTO) 15.7 %; MEAN CORPUSCULAR HEMOGLOBIN 26.8 pg (27.0-31.0); MEAN CORPUSCULAR HGB CONC 30.4 g/dL (32.0-36.0); MEAN CORPUSCULAR VOLUME 88.3 fL (81.0-99.0); MEAN PLATELET VOLUME 11.1 fL (7.9-10.8); MONOCYTES # (AUTO) 0.8 10^3/uL (0.0-1.0); MONOCYTES % (AUTO) 6.2 %; NEUTROPHILS # (AUTO) 9.2 10^3/uL (1.5-6.6); NEUTROPHILS % (AUTO) 76.3 %; PLT - PLATELET COUNT 386 10^3/uL (130-450); RED BLOOD COUNT 4.36 10^6/uL (4.20-5.40); RED CELL DISTRIBUTION WIDTH 18.7 % (12.0-15.0); WHITE BLOOD COUNT 12.1 x10^3/uL (4.8-10.8)
[2019-05-19 13:51] LABS: ALBUMIN 3.6 g/dL (3.2-5.5); ALBUMIN/GLOBULIN RATIO 1.1 (1.0-2.2); BILIRUBIN,TOTAL 0.4 mg/dL (0.2-1.0); CALCIUM 8.9 mg/dL (8.5-10.3); CREATININE 0.9 mg/dL (0.4-1.0); TOTAL PROTEIN 6.9 g/dL (6.7-8.2)
--- NOTE | 2019-05-19 14:00 | ED Physician Documentation ---
PD HPI CHEST PAIN - Stated complaint Stated Complaint: ERICKSON/CP - Chief complaint Chief Complaint: Cardiac - History obtained from History obtained from: Patient - History of Present Illness Timing - onset: How many days ago (6) Timing - onset during: Rest Timing - duration: Days (6) Timing - details: Gradual onset, Still present, Waxing and waning Quality: Tightness, Sharp Location: Substernal, Left chest Radiation: Back Improved by: Rest Worsened by: Exertion, Inspiration, Movement, Palpation, Position Associated symptoms: Shortness of air, Cough Similar symptoms before: Diagnosis (chest pain uncertain eitology) Recently seen: Emergency Dept - Additional information Additional information: 54-year-old female is had chest pain for the past 6 days anteriorly and she believes this is related somewhat to her abdominal hernia. She has pain with coughing and movement. She has had a migraine headache as well she is recently been seen in the emergency department treated for the migraine headache. Review of Systems Constitutional: reports: Fatigue. denies: Fever Eyes: denies: Decreased vision Ears: denies: Ear pain Nose: reports: Congestion Throat: denies: Sore throat Cardiac: reports: Chest pain / pressure. denies: Palpitations, Pedal edema, Calf pain Respiratory: reports: Dyspnea, Cough, Wheezing GI: reports: Abdominal Pain, Nausea. denies: Vomiting : denies: Dysuria, Frequency Skin: denies: Rash Musculoskeletal: reports: Back pain. 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: None : None HEENT: None Psych: Depression, Bipolar disorder, Schizophrenia, Post traumatic stress disorder, Other Musculoskeletal: None Derm: None - Past Surgical History Past Surgical History: Yes General: Bowel surgery Ortho: Other /CREEL CLEANER: 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 HEENT: Cataracts - Present Medications Home Medications: Ambulatory Orders Medication Instructions Recorded Confirmed metFORMIN [Glucophage] 500 mg ORAL TID 09/06/18 11/22/18 Divalproex ER [Depakote ER] 750 mg PO BID #30 tablet 09/29/18 11/22/18 Mirtazapine [Remeron] 15 mg ORAL QPM #5 tablet 09/29/18 11/22/18 Albuterol Sulf [Ventolin Hfa 1 - 2 puffs INH Q4HR PRN #1 inhaler 10/15/18 11/22/18 Inhaler] Baclofen 5 mg PO BID 10/28/18 11/22/18 Benzonatate [Tessalon Perle] 100 mg PO TID PRN #25 capsule 11/11/18 11/22/18 Naproxen 375 mg PO BID #20 tablet 12/31/18 Tramadol HCl 50 mg PO Q6H PRN #15 tablet 12/31/18 LORazepam [Lorazepam] 0.5 - 1 mg PO BID PRN #10 tablet 01/20/19 Diphenoxylate/Atropine [Lomotil] 1 each PO QID PRN #10 tablet 02/01/19 Doxycycline Hyclate 100 mg PO BID #20 capsule 02/07/19 Aspirin 81 mg PO 03/07/19 Atorvastatin [Lipitor] 10 mg ORAL DAILY 03/07/19 03/07/19 Mirtazapine 30 mg ORAL DAILY PM 03/07/19 03/07/19 OLANZapine [Olanzapine] 10 mg ORAL BID 03/07/19 03/07/19 Sitagliptin Phosphate [Januvia] 50 mg PO 03/07/19 metFORMIN [Glucophage] 500 mg PO BIDWM 03/07/19 03/07/19 traZODone [Desyrel] 50 mg PO DAILY PM 03/07/19 03/07/19 Hydrocodone/Acetaminophen 1 - 2 each PO Q6H PRN #5 tablet 03/17/19 [Hydrocodon-Acetaminophen 5-325] SUMAtriptan succinate [Sumatriptan 6 mg SQ DAILY PRN #2 units 05/15/19 Succinate] Benzonatate [Tessalon Perle] 100 - 200 mg PO TID PRN #30 capsule 05/19/19 Levofloxacin [Levaquin] 750 mg PO DAILY #10 tablet 05/19/19 SUMAtriptan [Sumatriptan] 20 mg NS ONCE PRN #1 spray 05/19/19 - Allergies Allergies/Adverse Reactions: Allergies Allergy/AdvReac Type Severity Reaction Status Date / Time azithromycin Allergy Severe Hives Verified 04/29/19 16:50 haloperidol Allergy Severe Anaphylaxis Verified 04/29/19 16:50 Penicillins Allergy Severe Anaphylaxis Verified 04/29/19 16:50 amoxicillin [Amoxicillin] Allergy Intermediate Rash Verified 04/29/19 16:50 grapefruit Allergy Intermediate Rash Verified 04/29/19 16:50 iodine Allergy Intermediate Rash Verified 04/29/19 16:50 Sulfa (Sulfonamide Allergy Intermediate Rash Verified 04/29/19 16:50 Antibiotics) shellfish derived Allergy Unknown Verified 04/29/19 16:50 haloperidol lactate * AdvReac Rash Verified 04/29/19 16:50 [From Haldol] bee sting Allergy Anaphylaxis Uncoded 04/29/19 16:50 - Social History Does the pt smoke?: Yes Smoking Status: Current every day smoker Does the pt drink ETOH?: Yes Does the pt have substance abuse?: No - Immunizations Immunizations are current?: No Immunizations: TDAP >10years/unknown - POLST Patient has POLST: No PD ED PE NORMAL - Vitals Vital signs reviewed: Yes (normal ) - General General: No acute distress, Well developed/nourished - HEENT HEENT: Atraumatic, PERRL, EOMI, Ears normal, Other (dry mucous membranes ) - Neck Neck: Supple, no meningeal sign, No bony TTP - Cardiac Cardiac: RRR, No murmur - Respiratory Respiratory: No respiratory distress, Clear bilaterally, Other (There is chest wall tendeness to the costal margin that reproduces the patients symptoms. ) - Abdomen Abdomen: Soft, Other (mid line tenderness without gaurding or rebound tenderness. There is a palpable hernia defect reducible. ) - Back Back: No CVA TTP, No spinal TTP - Derm Derm: Normal color, Warm and dry, No rash - Extremities Extremities: No deformity, No edema - Neuro Neuro: Alert and oriented X 3, health spa manager 2-12 intact, No motor deficit, No sensory deficit, Normal speech Eye Opening: Spontaneous Motor: Obeys Commands Verbal: Oriented GCS Score: 15 - Psych Psych: Normal mood, Normal affect Results - Vitals Vitals: Vital Signs - 24 hr 05/19/19 05/19/19 05/19/19 13:16 13:58 14:01 Temperature 37.4 C 37.4 C Heart Rate 91 80 Respiratory 20 16 Rate Blood Pressure 105/60 104/67 Blood Pressure 109/66 [Right] O2 Saturation 96 93 05/19/19 14:50 Temperature Heart Rate 82 Respiratory 20 Rate Blood Pressure 157/94 H Blood Pressure [Right] O2 Saturation 96 Oxygen O2 Source [With Activity] Room air O2 Source [Without Activity] Room air O2 Source Room air - EKG (time done) 1343 Rate: Rate (enter#) (84) Rhythm: NSR, LAE Levan: LAD Compare to prior EKG: Unchanged from prior EKG (SPT 03-05-19 no sig change) Computer interpretation: Disagree with computer (I do not see lateral ST elevation ) - Labs Labs: Laboratory Tests 05/19/19 05/19/19 05/19/19 13:32 13:32 13:32 WBC 12.1 H RBC 4.36 Hgb 11.7 L Hct 38.5 MCV 88.3 MCH 26.8 L MCHC 30.4 L RDW 18.7 H Plt Count 386 MPV 11.1 H Neut # (Auto) 9.2 H Lymph # (Auto) 1.9 Garfield # (Auto) 0.8 Eos # (Auto) 0.0 Baso # (Auto) 0.0 Absolute Nucleated RBC 0.03 Nucleated RBC % 0.2 Sodium 140 Potassium 4.2 Chloride 104 Carbon Dioxide 25 Anion Gap 11.0 BUN 17 Creatinine 0.9 Estimated GFR (MDRD) 65 L Glucose 172 H Calcium 8.9 Total Bilirubin 0.4 AST 16 ALT 15 Alkaline Phosphatase 55 Troponin I High Sens 3.9 Total Protein 6.9 Albumin 3.6 Globulin 3.3 Albumin/Globulin Ratio 1.1 Lipase 16 L - Rads (name of study) chest Radiology: Prelim report reviewed (Impression: 1. New hazy left lower lung zone opacity, favored to be secondary to overlapping soft tissue given patient rotation, however, recommend correlation with clinical exam. 2. New cardiomegaly.), EMP read indepedently, See rad report PD MEDICAL DECISION MAKING - ED course Complexity details: reviewed old records, reviewed results, re-evaluated patient, considered differential, d/w patient ED course: 54-year-old bipolar schizophrenic female well-known to the emergency department has anterior chest wall pain a cough increased pain in her abdominal hernia and the appearance of a possible infiltrate on her chest x-ray. Her diagnostics are otherwise unremarkable with the exception of mildly elevated white blood cell count. She is treated in the emergency department for the chest pain with Tor adol and Decadron as well as Rocephin and she is given a dose of sumatriptan for migraine headache. She is requesting nasal spray sumatriptan and for treatment of her migraines. Departure - Departure Disposition: 01 Home, Self Care Clinical Impression: Chest wall pain Pneumonia involving left lung Qualifiers: Pneumonia type: due to unspecified organism Lung location: lower lobe of lung Qualified Code(s): J18.1 - Lobar pneumonia, unspecified organism Incisional hernia Qualifiers: Obstruction and gangrene presence: without obstruction or gangrene Qualified Code(s): K43.2 - Incisional hernia without obstruction or gangrene Migraine Qualifiers: Migraine type: without aura Status migrainosus presence: without status migrainosus Intractability: not intractable Qualified Code(s): G43.009 - Migrai ne without aura, not intractable, without status migrainosus Instructions: Hernia, ED Strain Chest Wall, ED Headache Migraine, ED Pneumonia Adult [facility] Group] Alethea Bolanos ARNP [Primary Care Provider] - Prescriptions: Benzonatate [Tessalon Perle] 100 - 200 mg PO TID PRN #30 capsule PRN Reason: Cough Levofloxacin [Levaquin] 750 mg PO DAILY #10 tablet SUMAtriptan [Sumatriptan] 20 mg NS ONCE PRN #1 spray PRN Reason: Migraine
--- NOTE | 2019-05-19 14:10 | XRAY Report ---
Reason: Chest pain Procedure Date: 05/19/2019 Accession Number: [id number] / [id number] Procedure: XR - Chest 1 View X-Ray CPT Code: 27346 FULL RESULT: EXAM: CHEST RADIOGRAPHY EXAM DATE: 05/19/2019 01:39 PM. CLINICAL HISTORY: Chest pain. COMPARISON: [facility] W/PA CHEST RT 03/17/2019 7:04 PM. TECHNIQUE: 1 view. FINDINGS: LUNGS: Reticular opacity seen on prior study aren't not as well-seen on today's study. New hazy left lower lung opacity. Be artifact from overlying soft tissues given patient rotation. PLEURA: No significant pleural effusion. No clinically significant pneumothorax. MEDIASTINUM: Cardiomegaly, new from prior. BONES: The bones are osteopenic. No displaced acute fracture identified. IMPRESSION: 1. New hazy left lower lung zone opacity, favored to be secondary to overlapping soft tissue given patient rotation, however, recommend correlation with clinical exam. 2. New cardiomegaly. RADIA
[2019-05-19] MEDS ORDERED: DEXAMETHASONE 10 MG/ML VIAL IVP STA (14:17)
[2019-05-19] MEDS ORDERED: KETOROLAC 30 MG/ML VIAL IVP STA (14:17)
[2019-05-19] MEDS ORDERED: SUMAtriptan 6 MG/0.5 ML VIAL SUBQ STA (14:18)
[2019-05-19] MEDS ORDERED: cefTRIAXone 1 GM in SODIUM CHLORIDE 0.9% MINIBAG 100 ML IV STA (14:34)
[2019-05-19 15:48] VITALS: BP 149/92
== END 2019-05-19 16:03 | disposition home or self-care (01) ==
LOC: EDUNIT# → ED 13:09
DX: J18.1 Lobar pneumonia, unspecified organism (principal); R07.89 Other chest pain; K43.2 Incisional hernia without obstruction or gangrene; G43.009 Migraine without aura, not intractable, without status migrainosus; E11.9 Type 2 diabetes mellitus without complications; Z79.84 Long term (current) use of oral hypoglycemic drugs; Z79.82 Long term (current) use of aspirin; F17.200 Nicotine dependence, unspecified, uncomplicated; F20.9 Schizophrenia, unspecified
CPT/HCPCS: 36415; 71045; 80053; 83690; 84484; 85025; 93005; 96372; 96374; 96375; 99284

== ENCOUNTER 2019-05-20 13:46 | Emergency (ER) | payer MEDICARE, MEDICAID ==
[2019-05-20] MEDS ORDERED: ONDANSETRON 4 MG/2 ML VIAL IVP STA (15:31)
[2019-05-20] MEDS ORDERED: SODIUM CHLORIDE 0.9% 1,000 ML IV ONE (15:31)
[2019-05-20] MEDS ORDERED: HYDROmorphone 1 MG/ML CARPUJECT IVP STA (15:31)
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
[2019-05-20] MEDS ORDERED: IOVERSOL 320 100 ML VIAL IVP ONE ×3 (16:05→16:57)
[2019-05-20 16:45] LABS: BASOPHILS % (AUTO) 0.2 %; HGB - HEMOGLOBIN 12.1 g/dL (12.0-16.0); LYMPHOCYTES # (AUTO) 3.3 10^3/uL (1.5-3.5); MEAN CORPUSCULAR HEMOGLOBIN 26.7 pg (27.0-31.0); MEAN CORPUSCULAR HGB CONC 31.4 g/dL (32.0-36.0); MONOCYTES # (AUTO) 1.1 10^3/uL (0.0-1.0); MONOCYTES % (AUTO) 6.3 %; NEUTROPHILS # (AUTO) 12.8 10^3/uL (1.5-6.6); NEUTROPHILS % (AUTO) 72.5 %; PLT - PLATELET COUNT 399 10^3/uL (130-450); RED BLOOD COUNT 4.53 10^6/uL (4.20-5.40); RED CELL DISTRIBUTION WIDTH 18.6 % (12.0-15.0); WHITE BLOOD COUNT 17.6 x10^3/uL (4.8-10.8)
[2019-05-20 16:51] LABS: INR 1.1 (0.8-1.2); PT - PROTHROMBIN TIME 12.8 secs (9.9-12.6)
[2019-05-20 17:01] LABS: ALBUMIN 3.7 g/dL (3.2-5.5); ALBUMIN/GLOBULIN RATIO 1.1 (1.0-2.2); ALKALINE PHOSPHATASE 57 IU/L (42-121); ALT ALANINE AMINOTRANSFERASE 16 IU/L (10-60); AST ASPARTATE AMINOTRANSFERASE 15 IU/L (10-42); BILIRUBIN,TOTAL 0.4 mg/dL (0.2-1.0); BUN - BLOOD UREA NITROGEN 17 mg/dL (6-20); CALCIUM 9.2 mg/dL (8.5-10.3); CARBON DIOXIDE - CO2 28 mmol/L (21-32); CHLORIDE 105 mmol/L (101-111); CREATININE 0.8 mg/dL (0.4-1.0); GFR - MDRD 74 (>89); GLUCOSE 127 mg/dL (70-100); LIPASE 16 U/L (22-51); SODIUM 142 mmol/L (135-145); TOTAL PROTEIN 7.2 g/dL (6.7-8.2); VALPROIC ACID (DEPAKOTE) 32.8 ug/mL
--- NOTE | 2019-05-20 17:27 | CT Report ---
Reason: IV only, abd pain Procedure Date: 05/20/2019 Accession Number: [id number] / [id number] Procedure: CT - Abdomen/Pelvis W CPT Code: FULL RESULT: EXAM: CT ABDOMEN AND PELVIS EXAM DATE: 05/20/2019 04:54 PM. CLINICAL HISTORY: Abdominal pain. Hernia pain. COMPARISONS: ABDOMEN/PELVIS W/O 09/08/2018 4:31 PM. TECHNIQUE: Routine helical CT imaging was performed through the abdomen and pelvis. IV contrast: 100 mL Optiray 320. Enteric contrast: No. Reconstructions: Coronal and sagittal. In accordance with CT protocol optimization, one or more of the following dose reduction techniques were utilized for this exam: automated exposure control, adjustment of mA and/or KV based on patient size, or use of iterative reconstructive technique. FINDINGS: Lung Bases: Scattered paraseptal emphysema in the lung bases bilaterally. Liver: Normal. No masses. Gallbladder/Bile Ducts: The gallbladder is surgically absent. Spleen: The spleen is not visualized and may be surgically absent. Possible small splenule or splenic remnant measuring 1.8 cm in diameter in the lateral left upper abdominal quadrant lateral to the splenic flexure of the colon. Pancreas: Normal. Adrenal Glands: Normal. Kidneys: Symmetric renal perfusion. No hydronephrosis or nephrolithiasis. Extrarenal pelves bilaterally. Peritoneal Cavity/Bowel: Nonobstructive bowel gas pattern. The appendix is not visualized. No free air or free fluid. Pelvic Organs: The urinary bladder is unremarkable. The uterus and ovaries are not visualized. Vasculature: Mild scattered calcified atherosclerotic plaque throughout the abdominal aorta without evidence of aneurysm. Bones: No acute abnormality. Dextroconvex curvature of the lumbar spine may be related to positioning. Other: No abdominal wall hernia visualized. There is a rim calcified lesion in the right gluteal subcutaneous fat, which may represent an injection granuloma. IMPRESSION: No acute findings in the abdomen or pelvis. Chronic and incidental findings described above. RADIA
[2019-05-20] MEDS ORDERED: levoFLOXacin 250 MG TABLET PO STA (17:36)
[2019-05-20 17:46] VITALS: BP 137/95
== END 2019-05-20 17:50 | disposition home or self-care (01) ==
LOC: ED 13:46
DX: R10.9 Unspecified abdominal pain (principal); E11.9 Type 2 diabetes mellitus without complications; Z79.84 Long term (current) use of oral hypoglycemic drugs; R06.2 Wheezing; F17.200 Nicotine dependence, unspecified, uncomplicated
CPT/HCPCS: 36415; 74177; 80053; 80164; 83690; 85025; 85610; 96374; 99284; A9270; J1170; Q9967

== ENCOUNTER 2019-05-25 12:44 | Outpatient (CLI) | payer MEDICARE, MEDICAID | END 2019-05-25 12:45 | disposition critical access hospital (66) | LOC: EMS 12:44 | PROVIDERS: ATTEND Surgery | DX: R46.89 Other symptoms and signs involving appearance and behavior (principal) | CPT/HCPCS: A0425; A0429 ==

== ENCOUNTER 2019-05-25 13:01 | Emergency (ER) | payer MEDICARE, MEDICAID ==
[2019-05-25 13:08] VITALS: BP 134/85
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
[2019-05-25 13:23] LABS: BILIRUBIN,URINE NEGATIVE (NEGATIVE); GLUCOSE, URINE (UA) NEGATIVE (NEGATIVE); KETONES,URINE (UA) NEGATIVE (NEGATIVE); LEUKOCYTE ESTERASE, URINE TRACE (NEGATIVE); MUDS CUTOFF CONCENTRATIONS CUTOFF CONC BELOW:; NITRITE,URINE NEGATIVE (NEGATIVE); OCCULT BLOOD,URINE NEGATIVE (NEGATIVE); PROTEIN,URINE NEGATIVE (NEGATIVE); UROBILINOGEN,URINE 0.2 (NORMAL) E.U./dL (NORMAL)
[2019-05-25 13:25] LABS: CLARITY,URINE CLEAR (CLEAR)
[2019-05-25] MEDS ORDERED: KETOROLAC 60 MG/2 ML VIAL IM STA (13:32)
[2019-05-25 13:33] LABS: AMPHETAMINE SCREEN,URINE NEGATIVE (NEGATIVE); BENZODIAZEPINES SCREEN, URINE POSITIVE (NEGATIVE); COCAINE SCREEN URINE NEGATIVE (NEGATIVE); METHADONE SCREEN, URINE NEGATIVE (NEGATIVE); METHAMPHETAMINES SCREEN, URINE NEGATIVE (NEGATIVE); OPIATE SCREEN, URINE NEGATIVE (NEGATIVE); OXYCODONE SCREEN, URINE NEGATIVE (NEGATIVE); PROPOXYPHENE SCREEN, URINE NEGATIVE (NEGATIVE); TRICYCLIC ANTIDEPRESSANT,URINE NEGATIVE (NEGATIVE)
[2019-05-25 13:36] LABS: BACTERIA,URINE Few /HPF (None Seen); RBC,URINE 0-5 /HPF (0-5); SQUAMOUS EPITHELIAL CELL,UR MOD Squamous (<= Few)
[2019-05-25 13:56] LABS: BASOPHILS # (AUTO) 0.1 10^3/uL (0.0-0.1); BASOPHILS % (AUTO) 0.5 %; EOSINOPHILS # (AUTO) 0.3 10^3/uL (0.0-0.7); EOSINOPHILS % (AUTO) 1.7 %; LYMPHOCYTES # (AUTO) 4.4 10^3/uL (1.5-3.5); LYMPHOCYTES % (AUTO) 26.2 %; MEAN CORPUSCULAR HEMOGLOBIN 27.5 pg (27.0-31.0); MEAN CORPUSCULAR HGB CONC 32.3 g/dL (32.0-36.0); MEAN CORPUSCULAR VOLUME 85.3 fL (81.0-99.0); MEAN PLATELET VOLUME 10.8 fL (7.9-10.8); MONOCYTES # (AUTO) 1.6 10^3/uL (0.0-1.0); MONOCYTES % (AUTO) 9.5 %; NEUTROPHILS # (AUTO) 10.2 10^3/uL (1.5-6.6); NEUTROPHILS % (AUTO) 61.1 %; PLT - PLATELET COUNT 311 10^3/uL (130-450); RED BLOOD COUNT 4.36 10^6/uL (4.20-5.40); RED CELL DISTRIBUTION WIDTH 18.6 % (12.0-15.0); WHITE BLOOD COUNT 16.7 x10^3/uL (4.8-10.8)
[2019-05-25 14:11] LABS: ACETAMINOPHEN < 10 ug/mL (10-30); ALBUMIN 3.6 g/dL (3.2-5.5); ALBUMIN/GLOBULIN RATIO 1.3 (1.0-2.2); ALKALINE PHOSPHATASE 53 IU/L (42-121); ALT ALANINE AMINOTRANSFERASE 14 IU/L (10-60); AST ASPARTATE AMINOTRANSFERASE 15 IU/L (10-42); BILIRUBIN,TOTAL 0.4 mg/dL (0.2-1.0); BUN - BLOOD UREA NITROGEN 11 mg/dL (6-20); CALCIUM 8.9 mg/dL (8.5-10.3); CARBON DIOXIDE - CO2 29 mmol/L (21-32); CHLORIDE 104 mmol/L (101-111); CREATININE 0.9 mg/dL (0.4-1.0); GFR - MDRD 65 (>89); GLUCOSE 92 mg/dL (70-100); LIPASE 16 U/L (22-51); SALICYLATE < 6.0 mg/dL; SODIUM 141 mmol/L (135-145); TOTAL PROTEIN 6.4 g/dL (6.7-8.2)
[2019-05-25] MEDS ORDERED: ACETAMINOPHEN 325 MG TABLET PO STA (14:24)
[2019-05-25 14:27] LABS: DIFFERENTIAL COMMENT MANUAL=AUTO DIFF
== END 2019-05-25 14:44 | disposition home or self-care (01) ==
LOC: EDUNIT# → ED 13:01
DX: F22 Delusional disorders (principal); F20.9 Schizophrenia, unspecified; F31.9 Bipolar disorder, unspecified; D72.829 Elevated white blood cell count, unspecified; E11.9 Type 2 diabetes mellitus without complications; Z79.84 Long term (current) use of oral hypoglycemic drugs; Z79.82 Long term (current) use of aspirin; F17.200 Nicotine dependence, unspecified, uncomplicated
CPT/HCPCS: 36415; 81001; 83690; 96372; 99283; A9270; 80053; 80306; 80307; 80320; 80329; 81003; 84443; 85025; 87086

== ENCOUNTER 2019-05-26 08:00 | Outpatient (CLI) | payer MEDICARE, MEDICAID ==
[2019-05-26 18:26] LABS: BASOPHILS # (AUTO) 0.1 10^3/uL (0.0-0.1); BASOPHILS % (AUTO) 0.7 %; EOSINOPHILS # (AUTO) 0.2 10^3/uL (0.0-0.7); EOSINOPHILS % (AUTO) 1.1 %; LYMPHOCYTES # (AUTO) 4.1 10^3/uL (1.5-3.5); LYMPHOCYTES % (AUTO) 24.9 %; MEAN CORPUSCULAR HEMOGLOBIN 26.5 pg (27.0-31.0); MEAN CORPUSCULAR HGB CONC 30.5 g/dL (32.0-36.0); MONOCYTES # (AUTO) 1.5 10^3/uL (0.0-1.0); MONOCYTES % (AUTO) 9.1 %; NEUTROPHILS # (AUTO) 10.5 10^3/uL (1.5-6.6); NEUTROPHILS % (AUTO) 63.2 %; PLT - PLATELET COUNT 331 10^3/uL (130-450); RED BLOOD COUNT 4.53 10^6/uL (4.20-5.40); RED CELL DISTRIBUTION WIDTH 19.4 % (12.0-15.0); WHITE BLOOD COUNT 16.6 x10^3/uL (4.8-10.8)
== END 2019-05-26 23:59 | disposition home or self-care (01) ==
LOC: LAB.N 08:00
PROVIDERS: ATTEND Nurse Practitioner Gerontology
DX: J18.9 Pneumonia, unspecified organism (principal)
CPT/HCPCS: 36415; 85025

== ENCOUNTER 2019-05-26 13:42 | Outpatient (CLI) | payer MEDICARE, MEDICAID ==
--- NOTE | 2019-05-26 15:56 | XRAY Report ---
Reason: pneumonia Procedure Date: 05/26/2019 Accession Number: [id number] / [id number] Procedure: XRN - Chest 2 View X-Ray CPT Code: 92959 FULL RESULT: EXAM: CHEST RADIOGRAPHY EXAM DATE: 05/26/2019 01:59 PM. CLINICAL HISTORY: Pneumonia. COMPARISON: CHEST 1 VIEW 05/19/2019 1:25 PM RIBS W/PA CHEST RT 03/17/2019 7:04 PM. TECHNIQUE: 2 views. FINDINGS: Lungs/Pleura: Increased density at the lung bases bilaterally, question overlying soft tissues versus atelectasis or infiltrate. Clear upper lungs. No pleural effusion or pneumothorax. Mediastinum: Borderline heart size. Other: Mild degenerative change in the spine. IMPRESSION: Increased bibasilar density, question superimposition of soft tissues versus atelectasis/infiltrate. Otherwise negative two-view chest for age. RADIA
== END 2019-05-26 13:43 | disposition home or self-care (01) ==
LOC: DI.N 13:42
PROVIDERS: ATTEND Nurse Practitioner Gerontology
DX: J18.9 Pneumonia, unspecified organism (principal)
CPT/HCPCS: 71046

== ENCOUNTER 2019-05-26 18:19 | Outpatient (CLI) | payer MEDICARE, MEDICAID | END 2019-05-26 18:20 | disposition critical access hospital (66) | LOC: EMS 18:19 | PROVIDERS: ATTEND Surgery | DX: R11.10 Vomiting, unspecified (principal); R06.02 Shortness of breath; R05 Cough | CPT/HCPCS: A0425; A0429 ==

== ENCOUNTER 2019-05-26 18:35 | Emergency (ER) | payer MEDICARE, MEDICAID ==
[2019-05-26] MEDS ORDERED: ONDANSETRON ODT 4 MG TABLET TL STA (18:48)
[2019-05-26] MEDS ORDERED: IPRATROPIUM/ALBUTEROL 3 ML NEB INH STA (19:09)
[2019-05-26] MEDS ORDERED: traMADol 50 MG TABLET PO STA (19:34)
--- NOTE | 2019-05-26 19:42 | ED Physician Documentation ---
History of Present Illness - Stated complaint Stated Complaint: MED REACTION - Chief complaint Chief Complaint: General - History obtained from History obtained from: Patient, EMS - History of Present Illness Timing: Today Pain level max: 5 Pain level now: 5 Improved by: nothing Worsened by: nothing - Additonal information Additional information: 54-year-old female presents to the emergency department stating that she has been treated for pneumonia. She states she is on Levaquin. She states that she saw her doctor today and her white blood cell count is still elevated on her x- ray still shows pneumonia. She states that she vomited today as well and so they told her to come to the emergency department. She has 1 day of Levaquin left. No fevers at home. She also complains of left hip pain. No trauma. Chronic hip pain. 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 : None HEENT: None Psych: Depression, Bipolar disorder, Schizophrenia, Post traumatic stress disorder, Other Musculoskeletal: None Derm: None - Past Surgical History Past Surgical History: Yes General: Bowel surgery Ortho: Other /FILM ARCHIVIST: 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 HEENT: Cataracts - Present Medications Home Medications: Ambulatory Orders Medication Instructions Recorded Confirmed metFORMIN [Glucophage] 500 mg ORAL TID 09/06/18 11/22/18 Divalproex ER [Depakote ER] 750 mg PO BID #30 tablet 09/29/18 11/22/18 Mirtazapine [Remeron] 15 mg ORAL QPM #5 tablet 09/29/18 11/22/18 Albuterol Sulf [Ventolin Hfa 1 - 2 puffs INH Q4HR PRN #1 inhaler 10/15/18 11/22/18 Inhaler] Baclofen 5 mg PO BID 10/28/18 11/22/18 Benzonatate [Tessalon Perle] 100 mg PO TID PRN #25 capsule 11/11/18 11/22/18 Naproxen 375 mg PO BID #20 tablet 12/31/18 Tramadol HCl 50 mg PO Q6H PRN #15 tablet 12/31/18 LORazepam [Lorazepam] 0.5 - 1 mg PO BID PRN #10 tablet 01/20/19 Diphenoxylate/Atropine [Lomotil] 1 each PO QID PRN #10 tablet 02/01/19 Doxycycline Hyclate 100 mg PO BID #20 capsule 02/07/19 Aspirin 81 mg PO 03/07/19 Atorvastatin [Lipitor] 10 mg ORAL DAILY 03/07/19 03/07/19 Mirtazapine 30 mg ORAL DAILY PM 03/07/19 03/07/19 OLANZapine [Olanzapine] 10 mg ORAL BID 03/07/19 03/07/19 Sitagliptin Phosphate [Januvia] 50 mg PO 03/07/19 metFORMIN [Glucophage] 500 mg PO BIDWM 03/07/19 03/07/19 traZODone [Desyrel] 50 mg PO DAILY PM 03/07/19 03/07/19 Hydrocodone/Acetaminophen 1 - 2 each PO Q6H PRN #5 tablet 03/17/19 [Hydrocodon-Acetaminophen 5-325] SUMAtriptan succinate [Sumatriptan 6 mg SQ DAILY PRN #2 units 05/15/19 Succinate] Benzonatate [Tessalon Perle] 100 - 200 mg PO TID PRN #30 capsule 05/19/19 Levofloxacin [Levaquin] 750 mg PO DAILY #10 tablet 05/19/19 SUMAtriptan [Sumatriptan] 20 mg NS ONCE PRN #1 spray 05/19/19 - Allergies Allergies/Adverse Reactions: Allergies Allergy/AdvReac Type Severity Reaction Status Date / Time azithromycin Allergy Severe Hives Verified 05/25/19 13:08 haloperidol Allergy Severe Anaphylaxis Verified 05/25/19 13:08 Penicillins Allergy Severe Anaphylaxis Verified 05/25/19 13:08 amoxicillin [Amoxicillin] Allergy Intermediate Rash Verified 05/25/19 13:08 grapefruit Allergy Intermediate Rash Verified 05/25/19 13:08 iodine Allergy Intermediate Rash Verified 05/25/19 13:08 Sulfa (Sulfonamide Allergy Intermediate Rash Verified 05/25/19 13:08 Antibiotics) shellfish derived Allergy Unknown Verified 05/25/19 13:08 haloperidol lactate * AdvReac Rash Verified 05/25/19 13:08 [From Haldol] bee sting Allergy Anaphylaxis Uncoded 05/25/19 13:08 - Social History Does the pt smoke?: Yes Smoking Status: Current every day smoker Does the pt drink ETOH?: Yes Does the pt have substance abuse?: No - Immunizations Immunizations are current?: No Immunizations: TDAP >10years/unknown - POLST Patient has POLST: No PD ED PE NORMAL - Vitals Vital signs reviewed: Yes - General General: Alert and oriented X 3, No acute distress, Well developed/nourished - HEENT HEENT: PERRL, Moist mucous membranes - Neck Neck: Supple, no meningeal sign - Cardiac Cardiac: RRR, Strong equal pulses - Respiratory Respiratory: No respiratory distress, Other (wheezing B) - Abdomen Abdomen: Soft, Non tender, Non distended - Back Back: No CVA TTP, No spinal TTP - Derm Derm: Warm and dry - Neuro Neuro: Alert and oriented X 3, No motor deficit, No sensory deficit - Psych Psych: Normal mood, Normal affect Results - Vitals Vitals: Vital Signs - 24 hr 05/26/19 05/26/19 05/26/19 18:38 19:19 19:43 Temperature 37 C Heart Rate 88 78 78 Respiratory 20 18 14 Rate Blood Pressure 114/81 H 117/71 O2 Saturation 93 94 Oxygen O2 Source [With Activity] Room air O2 Source [Without Activity] Room air O2 Source Room air PD MEDICAL DECISION MAKING - ED course Complexity details: reviewed old records, considered differential, d/w patient ED course: Patient feels better after nebulizer treatment and tramadol. Tolerating p.o. without difficulty after Zofran. Reviewed her chest x-ray from earlier today and this appears to be more consistent with atelectasis and soft tissue shadows the pneumonia. She is not having fevers. Does have leukocytosis but has a chronic leukocytosis looking back on her lab work. It has actually decreased from last week as well. No hypoxia. No respiratory distress. We will have her finish the Levaquin and follow-up with her doctor. Patient counseled regarding signs and symptoms for which I believe and urgent re-evaluation would be necessary. Patient with good understanding of and agreement to plan and is comfortable going home at this time This document was made in part using voice recognition software. While efforts are made to proofread this document, sound alike and grammatical errors may occur. Departure - Departure Disposition: 01 Home, Self Care Clinical Impression: Hip pain, left Vomiting Qualifiers: Vomiting type: unspecified Vomiting Intractability: non-intractable Nausea presence: with nausea Qualified Code(s): R11.2 - Nausea with vomiting, unspecified Condition: Good Instructions: ED Nausea Vomiting Follow-Up: Alethea Bolanos ARNP [Primary Care Provider] - Within 1 week Comments: Your white blood cell count has decreased since last week. Your chest x-ray appears to have improving pneumonia. Finish the antibiotics and follow-up with your doctor for further care. Discharge Date/Time: 05/26/19 19:49
[2019-05-26 19:44] VITALS: BP 117/71
== END 2019-05-26 19:49 | disposition home or self-care (01) ==
LOC: EDUNIT# → ED 18:35
DX: J18.9 Pneumonia, unspecified organism (principal); M25.552 Pain in left hip; G89.29 Other chronic pain; R11.2 Nausea with vomiting, unspecified; E11.9 Type 2 diabetes mellitus without complications; Z79.84 Long term (current) use of oral hypoglycemic drugs; F17.200 Nicotine dependence, unspecified, uncomplicated
CPT/HCPCS: 36415; 71046; 85025; 94640; 99282; 99283; A9270; Q0162

== ENCOUNTER 2019-06-01 16:03 | Outpatient (CLI) | payer MEDICARE, MEDICAID | END 2019-06-01 16:04 | disposition critical access hospital (66) | LOC: EMS 16:03 | PROVIDERS: ATTEND Surgery | DX: R45.851 Suicidal ideations (principal) | CPT/HCPCS: A0425; A0429 ==

== ENCOUNTER 2019-06-01 16:20 | Emergency (ER) | payer MEDICARE, MEDICAID ==
--- NOTE | 2019-06-01 16:27 | ED Physician Documentation ---
PD HPI MHE - Stated complaint Stated Complaint: SI - History obtained from History obtained from: Patient, EMS - History of Present Illness Primary symptom: Self harm - other, Psychosis Timing - onset: Today Similar symptoms before: Diagnosis Recently seen: Emergency Dept - Additional information Additional information: This is a 54-year-old woman who with underlying psychosis chronic that hears voices on occasion. Today she started hearing them telling her to harm herself so she took a wet paper towel and rubbed it vigorously enough on her right forearm over pre-existing scars that it caused some abrasions. Because she continued to complain of the voices telling her to harm herself the nursing staff where she is called for her to be brought in for evaluation. The patient repeatedly tells me she is not suicidal or homicidal and she does not want to be here. She reports she is taking the medications that are given to her from the nursing staff. She recently finished a course of antibiotics and just started prednisone today for pneumonia and she is using her inhalers. She denies fever or vomiting. She is complaining now of a headache and a little pain in the left lower back. Denies any urinary symptoms of burning or frequency. She did take an Imitrex this morning for her headache but said the nursing staff there cannot give her the shots which worked better than the pills. Review of Systems Constitutional: denies: Fever Eyes: denies: Loss of vision Throat: denies: Sore throat Respiratory: reports: Dyspnea, Cough (Improving after the antibiotics), Wheezing GI: denies: Vomiting : denies: Dysuria, Frequency Skin: reports: Abrasion (s) (Right forearm) Musculoskeletal: reports: Back pain (Left lower back) Psychiatric: reports: Hallucinations (Auditory). denies: Suicidal, Homicidal PD PAST MEDICAL HISTORY - Present Medications Home Medications: Ambulatory Orders Medication Instructions Recorded Confirmed metFORMIN [Glucophage] 500 mg ORAL TID 09/06/18 11/22/18 Divalproex ER [Depakote ER] 750 mg PO BID #30 tablet 09/29/18 11/22/18 Mirtazapine [Remeron] 15 mg ORAL QPM #5 tablet 09/29/18 11/22/18 Albuterol Sulf [Ventolin Hfa 1 - 2 puffs INH Q4HR PRN #1 inhaler 10/15/18 11/22/18 Inhaler] Baclofen 5 mg PO BID 10/28/18 11/22/18 Benzonatate [Tessalon Perle] 100 mg PO TID PRN #25 capsule 11/11/18 11/22/18 Naproxen 375 mg PO BID #20 tablet 12/31/18 Tramadol HCl 50 mg PO Q6H PRN #15 tablet 12/31/18 LORazepam [Lorazepam] 0.5 - 1 mg PO BID PRN #10 tablet 01/20/19 Diphenoxylate/Atropine [Lomotil] 1 each PO QID PRN #10 tablet 02/01/19 Doxycycline Hyclate 100 mg PO BID #20 capsule 02/07/19 Aspirin 81 mg PO 03/07/19 Atorvastatin [Lipitor] 10 mg ORAL DAILY 03/07/19 03/07/19 Mirtazapine 30 mg ORAL DAILY PM 03/07/19 03/07/19 OLANZapine [Olanzapine] 10 mg ORAL BID 03/07/19 03/07/19 Sitagliptin Phosphate [Januvia] 50 mg PO 03/07/19 metFORMIN [Glucophage] 500 mg PO BIDWM 03/07/19 03/07/19 traZODone [Desyrel] 50 mg PO DAILY PM 03/07/19 03/07/19 Hydrocodone/Acetaminophen 1 - 2 each PO Q6H PRN #5 tablet 03/17/19 [Hydrocodon-Acetaminophen 5-325] SUMAtriptan succinate [Sumatriptan 6 mg SQ DAILY PRN #2 units 05/15/19 Succinate] Benzonatate [Tessalon Perle] 100 - 200 mg PO TID PRN #30 capsule 05/19/19 Levofloxacin [Levaquin] 750 mg PO DAILY #10 tablet 05/19/19 SUMAtriptan [Sumatriptan] 20 mg NS ONCE PRN #1 spray 05/19/19 - Allergies Allergies/Adverse Reactions: Allergies Allergy/AdvReac Type Severity Reaction Status Date / Time azithromycin Allergy Severe Hives Verified 05/25/19 13:08 haloperidol Allergy Severe Anaphylaxis Verified 05/25/19 13:08 Penicillins Allergy Severe Anaphylaxis Verified 05/25/19 13:08 amoxicillin [Amoxicillin] Allergy Intermediate Rash Verified 05/25/19 13:08 grapefruit Allergy Intermediate Rash Verified 05/25/19 13:08 iodine Allergy Intermediate Rash Verified 05/25/19 13:08 Sulfa (Sulfonamide Allergy Intermediate Rash Verified 05/25/19 13:08 Antibiotics) shellfish derived Allergy Unknown Verified 05/25/19 13:08 haloperidol lactate * AdvReac Rash Verified 05/25/19 13:08 [From Haldol] bee sting Allergy Anaphylaxis Uncoded 05/25/19 13:08 PD ED PE NORMAL - Vitals Vital signs reviewed: Yes - General General: Alert and oriented X 3, No acute distress, Well developed/nourished - HEENT HEENT: Atraumatic, PERRL, Moist mucous membranes - Cardiac Cardiac: RRR, No murmur - Respiratory Respiratory: No respiratory distress, Other (Wheezing heard bilaterally) - Abdomen Abdomen: Normal bowel sounds, Soft, Non tender - Derm Derm: Normal color, Warm and dry, No rash, Other (There are a multitude of linear well-healed scars across almost the entire surface of both forearms volar and dorsal. 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 Repeatedly stating that she is not suicidal or homicidal) Results - Vitals Vitals: Vital Signs - 24 hr 06/01/19 16:21 Temperature 36.9 C Heart Rate 112 H Respiratory 16 Rate Blood Pressure 141/93 H O2 Saturation 99 Oxygen O2 Source [With Activity] Room air O2 Source [Without Activity] Room air O2 Source Room air PD MEDICAL DECISION MAKING - ED course Complexity details: d/w patient ED course: He patient will be given Imitrex injection since they cannot give the injections at the custodial. She is stating that she is not suicidal or homicidal. She frequently hears these voices. She does have wheezing but has underlying asthma and just started steroids today. I do not see any indication for any further work-up of this at this time. She will be transferred back to the custodial. 1649: Patient reported to nursing staff that the nurse at the custodial was concerned about her "cutting" and she still feels like she needs to find a pop can to cut herself with. I went in and talked with her. This is a long- standing problem with [facility] and I do not feel that she needs psychiatric admission at this point. She is had good relief of controlling the voices with Klonopin in the past so she is given a dose today and plan still to discharge back to the custodial. Departure - Departure Disposition: 01 Home, Self Care Clinical Impression: Hallucinations Headache Qualifiers: Headache type: unspecified Headache chronicity pattern: episodic headache Intractability: not intractable Qualified Code(s): R51 - Headache Instructions: ED Headache Migraine Follow-Up: Alethea Bolanos ARNP [Primary Care Provider] - Comments: Make sure that you take your medications as prescribed including the prednisone that you are just prescribed for your wheezing. Continue to use your inhalers. Follow-up with your primary care provider for reevaluation if your symptoms are not improving.
[2019-06-01] MEDS ORDERED: SUMAtriptan 6 MG/0.5 ML VIAL SUBQ STA (16:32)
[2019-06-01] MEDS ORDERED: clonazePAM 0.5 MG TABLET PO STA (16:48)
[2019-06-01 17:16] VITALS: BP 149/75
== END 2019-06-01 17:22 | disposition home or self-care (01) ==
LOC: EDUNIT# → ED 16:20
DX: R44.0 Auditory hallucinations (principal); R51 Headache; S50.811A Abrasion of right forearm, initial encounter; X83.8XXA Intentional self-harm by other specified means, initial encounter; Y92.10 Unspecified residential institution as the place of occurrence of the external cause
CPT/HCPCS: 96372; 99283; 99284; A9270

== ENCOUNTER 2019-06-06 19:16 | Outpatient (CLI) | payer MEDICARE, MEDICAID | END 2019-06-06 19:17 | disposition critical access hospital (66) | LOC: EMS 19:16 | PROVIDERS: ATTEND Surgery | DX: R51 Headache (principal); R11.2 Nausea with vomiting, unspecified | CPT/HCPCS: A0425; A0429 ==

== ENCOUNTER 2019-06-06 19:38 | Observation (INO) | payer MEDICARE, MEDICAID ==
--- NOTE | 2019-06-06 20:22 | ED Physician Documentation ---
History of Present Illness - Stated complaint Stated Complaint: MIGRAINE - Chief complaint Chief Complaint: Neuro - Additonal information Additional information: This is a 54-year-old female with a history of COPD, schizoaffective disorder, seizure disorder, diabetes, migraines, who presents to the emergency department with a migraine as well as some shortness of breath. Patient states that her migraine began today and is typical for her, it is located over the left side, pulsating, associated photophobia and phonophobia. They tried giving her some Imitrex nasally at the [facility] and this did not help. She states that the pain is severe, currently 10 out of 10. She denies any weakness or numbness, she does have some slight blurring of her vision which she states is typical for her migraines. As a secondary complaint patient states that she feels somewhat short of breath. She quit smoking 3 days ago, has not used her inhalers recently, and she feels wheezy. She has her baseline cough, no change in this, no change in sputum production. No chest pain. She would like a nebulizer treatment. Review of Systems Constitutional: denies: Fever Eyes: reports: Photophobia Ears: reports: Other (Phonophobia) Nose: denies: Rhinorrhea / runny nose Cardiac: denies: Chest pain / pressure Respiratory: reports: Dyspnea GI: denies: Abdominal Pain : denies: Dysuria Skin: denies: Rash Neurologic: reports: Other (Seizure disorder) Endocrine: reports: Other (Hx diabetes) PD PAST MEDICAL HISTORY - Past Medical History Cardiovascular: Angina, Other Respiratory: COPD, Pneumonia Neuro: CVA, Migraines, Seizure disorder Endocrine/Autoimmune: Type 2 diabetes GI: GERD, Hiatal hernia BUSHLER: None : None HEENT: None Psych: Depression, Bipolar disorder, Schizophrenia, Post traumatic stress disorder, Other Musculoskeletal: None Derm: None - Past Surgical History Past Surgical History: Yes General: Bowel surgery Ortho: Other /BUSHLER: 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 HEENT: Cataracts - Present Medications Home Medications: Ambulatory Orders Medication Instructions Recorded Confirmed Divalproex ER [Depakote ER] 750 mg PO BID #30 tablet 09/29/18 11/22/18 Mirtazapine [Remeron] 15 mg ORAL QPM #5 tablet 09/29/18 11/22/18 Albuterol Sulf [Ventolin Hfa 1 - 2 puffs INH Q4HR PRN #1 inhaler 10/15/18 11/22/18 Inhaler] Baclofen 5 mg PO BID 10/28/18 11/22/18 Diphenoxylate/Atropine [Lomotil] 1 each PO QID PRN #10 tablet 02/01/19 Atorvastatin [Lipitor] 10 mg ORAL DAILY 03/07/19 03/07/19 Mirtazapine 30 mg ORAL DAILY PM 03/07/19 03/07/19 OLANZapine [Olanzapine] 10 mg ORAL BID 03/07/19 03/07/19 Sitagliptin Phosphate [Januvia] 50 mg PO 03/07/19 traZODone [Desyrel] 50 mg PO DAILY PM 03/07/19 03/07/19 Hydrocodone/Acetaminophen 1 - 2 each PO Q6H PRN #5 tablet 03/17/19 [Hydrocodon-Acetaminophen 5-325] SUMAtriptan succinate [Sumatriptan 6 mg SQ DAILY PRN #2 units 05/15/19 Succinate] Benzonatate [Tessalon Perle] 100 - 200 mg PO TID PRN #30 capsule 05/19/19 SUMAtriptan [Sumatriptan] 20 mg NS ONCE PRN #1 spray 05/19/19 DULoxetine [Cymbalta] 30 mg PO DAILY 06/01/19 06/01/19 Naproxen Sodium [Naprelan] 375 mg PO 06/01/19 Pantoprazole [Protonix] 0 mg 06/01/19 clonazePAM [Clonazepam] 0 06/01/19 predniSONE [Prednisone] 20 mg PO 06/01/19 - Allergies Allergies/Adverse Reactions: Allergies Allergy/AdvReac Type Severity Reaction Status Date / Time azithromycin Allergy Severe Hives Verified 05/25/19 13:08 haloperidol Allergy Severe Anaphylaxis Verified 05/25/19 13:08 Penicillins Allergy Severe Anaphylaxis Verified 05/25/19 13:08 amoxicillin [Amoxicillin] Allergy Intermediate Rash Verified 05/25/19 13:08 grapefruit Allergy Intermediate Rash Verified 05/25/19 13:08 iodine Allergy Intermediate Rash Verified 05/25/19 13:08 Sulfa (Sulfonamide Allergy Intermediate Rash Verified 05/25/19 13:08 Antibiotics) shellfish derived Allergy Unknown Verified 05/25/19 13:08 haloperidol lactate * AdvReac Rash Verified 05/25/19 13:08 [From Haldol] bee sting Allergy Anaphylaxis Uncoded 05/25/19 13:08 - Social History Does the pt smoke?: Yes Smoking Status: Current every day smoker Does the pt drink ETOH?: Yes Does the pt have substance abuse?: No - Immunizations Immunizations are current?: No Immunizations: TDAP >10years/unknown - POLST Patient has POLST: No PD ED PE NORMAL - Vitals Vital signs reviewed: Yes - General General: Alert and oriented X 3 - HEENT HEENT: Atraumatic, PERRL - Neck Neck: Supple, no meningeal sign - Cardiac Cardiac: RRR, No murmur - Respiratory Respiratory: Other (Diffuse wheezing bilaterally) - Abdomen Abdomen: Normal bowel sounds, Soft, Non tender, Non distended - Derm Derm: Warm and dry - Extremities Extremities: No deformity - Neuro Neuro: Alert and oriented X 3, 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, No motor deficit, No sensory deficit, Other (Speech is fluent and at baseline.) - Psych Psych: Normal mood, Normal affect Results - Vitals Vitals: Vital Signs - 24 hr 06/06/19 06/06/19 06/06/19 19:43 20:25 21:06 Temperature 37.1 C 37.1 C Heart Rate 93 93 86 Respiratory 16 16 18 Rate Blood Pressure 147/78 H 147/78 H O2 Saturation 94 94 06/06/19 06/06/19 06/06/19 21:46 21:53 22:11 Temperature Heart Rate Respiratory Rate Blood Pressure O2 Saturation 89 L 87 L 93 06/06/19 06/06/19 06/07/19 22:19 23:55 00:15 Temperature Heart Rate 74 66 75 Respiratory 20 18 18 Rate Blood Pressure 169/89 H 157/71 H O2 Saturation 95 95 06/07/19 06/07/19 06/07/19 00:18 00:37 01:38 Temperature Heart Rate 81 Respiratory Rate Blood Pressure 152/74 H O2 Saturation 98 89 L 84 L Oxygen O2 Source [With Activity] Room air O2 Source [Without Activity] Room air O2 Source Room air Oxygen Flow Rate 2 - Labs Labs: Laboratory Tests 06/06/19 06/06/19 06/06/19 21:00 21:00 22:10 WBC 16.6 H RBC 4.64 Hgb 12.6 Hct 39.8 MCV 85.8 MCH 27.2 MCHC 31.7 L RDW 18.9 H Plt Count 410 MPV 12.3 H Neut # (Auto) 13.4 H Lymph # (Auto) 2.1 Andrews # (Auto) 0.8 Eos # (Auto) 0.0 Baso # (Auto) 0.1 Absolute Nucleated RBC 0.03 Nucleated RBC % 0.2 Sodium 143 Potassium 4.8 Chloride 108 Carbon Dioxide 27 Anion Gap 8.0 BUN 17 Creatinine 0.7 Estimated GFR (MDRD) 87 L Glucose 134 H Calcium 9.6 Total Bilirubin 0.3 AST 18 ALT 16 Alkaline Phosphatase 55 Total Protein 7.0 Albumin 3.7 Globulin 3.3 Albumin/Globulin Ratio 1.1 Lipase 16 L Urine Color YELLOW Urine Clarity CLEAR Urine pH 7.0 Ur Specific [place] <=1.005 Urine Protein NEGATIVE Urine Glucose (UA) NEGATIVE Urine Ketones NEGATIVE Urine Occult Blood NEGATIVE Urine Nitrite NEGATIVE Urine Bilirubin NEGATIVE Urine Urobilinogen 0.2 (NORMAL) Ur Leukocyte Esterase NEGATIVE Ur Microscopic Review NOT INDICATED Urine Culture Comments NOT INDICATED - Rads (name of study) CXR Radiology: Other (No acute cardiopulmonary abnormality.) PD MEDICAL DECISION MAKING - ED course Complexity details: considered differential (Migraine, tension headache, intracranial hemorrhage/subarachnoid hemorrhage, COPD exacerbation, pneumonia) ED course: On examination patient is nontoxic-appearing, she has a normal neurologic exam. Labs are unremarkable. Patient was given a migraine cocktail and she had mild improvement of her symptoms, she was given sumatriptan and subcutaneously, this did not affect her headache at all. She was also given 1 dose of IV hydromorphone, and this led to further improvement in her symptoms. Her headache has been continuously improving while she has been here, and is consistent with her normal migraines, she has no red flags to suggest head bleed or new intracranial pathology at this time. Regarding patient's shortness of breath, she has diffuse wheezing, Has not been using her inhalers regularly, and has an extensive history of COPD. She previously was on home O2 at 2 L/min 24/7, but she states that she self discontinued this months ago. She is living at [facility] and they do not have oxygen for her there right now. Chest x-ray shows no signs of pneumonia or acute cardiopulmonary abnormality. She was given a breathing treatment and had some improvement of her symptoms, however even after 2 breathing treatments and observation she continued to be hypoxic to 88% while on room air, and when she ambulated she dropped to 84%. She became symptomatic With walking as well. She has no leg swelling or erythema. Given her wheezing and her clinical history, COPD is much more likely than pulmonary embolism. She is not having chest pain at this time. Given her hypoxia she was admitted to the medicine service for observation and consideration of home O2. Please refer to the admitting services notes for further hospital course. Departure - Departure Disposition: ED Place in Observation Clinical Impression: COPD exacerbation, Hypoxia Condition: Stable Discharge Date/Time: 06/07/19 03:30
[2019-06-06] MEDS ORDERED: SODIUM CHLORIDE 0.9% 1,000 ML IV STA (20:43)
[2019-06-06] MEDS ORDERED: KETOROLAC 30 MG/ML VIAL IVP STA (20:44)
[2019-06-06] MEDS ORDERED: ACETAMINOPHEN 325 MG TABLET PO STA (20:44)
[2019-06-06] MEDS ORDERED: diphenhydrAMINE INJ 50 MG/ML VIAL IVP STA (20:45)
[2019-06-06] MEDS ORDERED: METOCLOPRAMIDE 10 MG/2 ML VIAL IVP STA (20:45)
[2019-06-06] MEDS ORDERED: IPRATROPIUM/ALBUTEROL 3 ML NEB INH STA ×2 (20:46→23:41)
[2019-06-06] MEDS ORDERED: DEXAMETHASONE 10 MG/ML VIAL IVP STA (20:46)
--- NOTE | 2019-06-06 21:45 | XRAY Report ---
Reason: Chest Pain Procedure Date: 06/06/2019 Accession Number: [id number] / [id number] Procedure: XR - Chest 1 View X-Ray CPT Code: 13732 FULL RESULT: EXAM: CHEST RADIOGRAPHY EXAM DATE: 06/06/2019 09:26 PM. CLINICAL HISTORY: Chest Pain. COMPARISON: CHEST 2 VIEW 05/26/2019 2:05 PM. TECHNIQUE: 1 view. FINDINGS: Lungs/Pleura: No focal opacities evident. No pleural effusion. No pneumothorax. Mediastinum: Within exam limitations, the cardiomediastinal contour is normal. Other: None. IMPRESSION: Normal single view chest. RADIA
[2019-06-06] MEDS ORDERED: SUMAtriptan 6 MG/0.5 ML VIAL SUBQ STA (21:47)
[2019-06-06 22:16] LABS: BILIRUBIN,URINE NEGATIVE (NEGATIVE); GLUCOSE, URINE (UA) NEGATIVE (NEGATIVE); KETONES,URINE (UA) NEGATIVE (NEGATIVE); LEUKOCYTE ESTERASE, URINE NEGATIVE (NEGATIVE); NITRITE,URINE NEGATIVE (NEGATIVE); OCCULT BLOOD,URINE NEGATIVE (NEGATIVE); PROTEIN,URINE NEGATIVE (NEGATIVE); UROBILINOGEN,URINE 0.2 (NORMAL) E.U./dL (NORMAL)
[2019-06-06 22:18] LABS: CLARITY,URINE CLEAR (CLEAR)
[2019-06-06 23:31] LABS: BASOPHILS # (AUTO) 0.1 10^3/uL (0.0-0.1); BASOPHILS % (AUTO) 0.3 %; HGB - HEMOGLOBIN 12.6 g/dL (12.0-16.0); LYMPHOCYTES # (AUTO) 2.1 10^3/uL (1.5-3.5); LYMPHOCYTES % (AUTO) 12.7 %; MEAN CORPUSCULAR HEMOGLOBIN 27.2 pg (27.0-31.0); MEAN CORPUSCULAR HGB CONC 31.7 g/dL (32.0-36.0); MEAN CORPUSCULAR VOLUME 85.8 fL (81.0-99.0); MEAN PLATELET VOLUME 12.3 fL (7.9-10.8); MONOCYTES # (AUTO) 0.8 10^3/uL (0.0-1.0); MONOCYTES % (AUTO) 4.8 %; NEUTROPHILS # (AUTO) 13.4 10^3/uL (1.5-6.6); NEUTROPHILS % (AUTO) 80.4 %; PLT - PLATELET COUNT 410 10^3/uL (130-450); RED BLOOD COUNT 4.64 10^6/uL (4.20-5.40); RED CELL DISTRIBUTION WIDTH 18.9 % (12.0-15.0); WHITE BLOOD COUNT 16.6 x10^3/uL (4.8-10.8)
[2019-06-06 23:40] LABS: ALBUMIN 3.7 g/dL (3.2-5.5); ALBUMIN/GLOBULIN RATIO 1.1 (1.0-2.2); BILIRUBIN,TOTAL 0.3 mg/dL (0.2-1.0); CALCIUM 9.6 mg/dL (8.5-10.3); CREATININE 0.7 mg/dL (0.4-1.0)
[2019-06-06] MEDS ORDERED: HYDROmorphone 2 MG/ML VIAL IVP STA (23:41)
[2019-06-07] MEDS ORDERED: SODIUM CHLORIDE FLUSH 0.9% 10 ML SYRINGE IVP PRN (02:33)
[2019-06-07] MEDS ORDERED: IPRATROPIUM/ALBUTEROL 3 ML NEB INH PRN ×2 (02:37→14:34)
--- NOTE | 2019-06-07 02:45 | HISTORY & PHYSICAL EXAMINATION ---
Chief Complaint - Chief Complaint Chief Complaint: dyspnea on exertion with hypoxia History of Present Illness - Admitted From Admitted From:: [facility] - History Obtained From Records Reviewed: yes History obtained from: patient - History of Present Illness HPI Comment/Other: Patient seen on 06/07/19 around 02:30am Patient is a 54 y/o female with a significant psychiatric history who presented to the ED from [facility] with initial complain of migraine headaches. This was addressed but then she also complained of dyspnea. She has history of COPD and has been prescribed oxygen in the past. However she decided to stop using it 6 months ago. As a result she no longer has oxygen. She sounds very wheezy. When she attempted to ambulate in the ED her oxygenation dropped to 84% and she became tachypneic and mildly tachycardic. She readily improves to 95% on 2L of nasal canula oxygen. The rest of her history is unremarkable. She will need a deSaturation study for oxygen prescription. History - Past Medical History Cardiovascular: reports: Angina, Other Respiratory: reports: COPD, Pneumonia Neuro: reports: CVA, Migraines, Seizure disorder Endocrine/Autoimmune: reports: Type 2 diabetes GI: reports: GERD, Hiatal hernia FIXTURE DESIGNER: reports: None : reports: None HEENT: reports: None Psych: reports: Depression, Bipolar disorder, Schizophrenia, Post traumatic stress disorder, Other Musculoskeletal: reports: None Derm: reports: None MRSA Hx?: No - Past Surgical History General: reports: Bowel surgery Ortho: reports: Other /FIXTURE DESIGNER: reports: 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 HEENT: reports: Cataracts - Family & Social History Family History Comment/Other: father: CAD. at age 50. uncle: mental health disorder. Other family history of neurofibromatosis, breast cancer and seizures Living arrangement: Assisted living Social History Notes: She smokes cigarettes. She denies alcohol. She has history of using marijuana. 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 - POLST Patient has POLST: No POLST Status: Full Code Meds/Allgy - Home Medications Home Medications: Ambulatory Orders Medication Instructions Recorded Confirmed Divalproex ER [Depakote ER] 750 mg PO BID #30 tablet 09/29/18 11/22/18 Mirtazapine [Remeron] 15 mg ORAL QPM #5 tablet 09/29/18 11/22/18 Albuterol Sulf [Ventolin Hfa 1 - 2 puffs INH Q4HR PRN #1 inhaler 10/15/18 11/22/18 Inhaler] Baclofen 5 mg PO BID 10/28/18 11/22/18 Diphenoxylate/Atropine [Lomotil] 1 each PO QID PRN #10 tablet 02/01/19 Atorvastatin [Lipitor] 10 mg ORAL DAILY 03/07/19 03/07/19 Mirtazapine 30 mg ORAL DAILY PM 03/07/19 03/07/19 OLANZapine [Olanzapine] 10 mg ORAL BID 03/07/19 03/07/19 Sitagliptin Phosphate [Januvia] 50 mg PO 03/07/19 traZODone [Desyrel] 50 mg PO DAILY PM 03/07/19 03/07/19 Hydrocodone/Acetaminophen 1 - 2 each PO Q6H PRN #5 tablet 03/17/19 [Hydrocodon-Acetaminophen 5-325] SUMAtriptan succinate [Sumatriptan 6 mg SQ DAILY PRN #2 units 05/15/19 Succinate] Benzonatate [Tessalon [place]] 100 - 200 mg PO TID PRN #30 capsule 05/19/19 SUMAtriptan [Sumatriptan] 20 mg NS ONCE PRN #1 spray 05/19/19 DULoxetine [Cymbalta] 30 mg PO DAILY 06/01/19 06/01/19 Naproxen Sodium [Naprelan] 375 mg PO 06/01/19 Pantoprazole [Protonix] 0 mg 06/01/19 clonazePAM [Clonazepam] 0 06/01/19 predniSONE [Prednisone] 20 mg PO 06/01/19 - Allergies Allergies/Adverse Reactions: Allergies Allergy/AdvReac Type Severity Reaction Status Date / Time azithromycin Allergy Severe Hives Verified 05/25/19 13:08 haloperidol Allergy Severe Anaphylaxis Verified 05/25/19 13:08 Penicillins Allergy Severe Anaphylaxis Verified 05/25/19 13:08 amoxicillin [Amoxicillin] Allergy Intermediate Rash Verified 05/25/19 13:08 grapefruit Allergy Intermediate Rash Verified 05/25/19 13:08 iodine Allergy Intermediate Rash Verified 05/25/19 13:08 Sulfa (Sulfonamide Allergy Intermediate Rash Verified 05/25/19 13:08 Antibiotics) shellfish derived Allergy Unknown Verified 05/25/19 13:08 haloperidol lactate * AdvReac Rash Verified 05/25/19 13:08 [facility] bee sting Allergy Anaphylaxis Uncoded 05/25/19 13:08 Review of Systems - Constitutional Constitutional: denies: Fatigue, Fever, Chills - Eyes Eyes: denies: Blurred vision, Vision loss, Dipolpia - Ears, Nose & Throat Ears, Nose & Throat: denies: Vertigo, Sore throat, Hoarseness - Cardiovascular Cariovascular: reports: Exertional dyspnea. denies: Chest pain, Edema, Lightheadedness, Syncope - Respiratory Respiratory: reports: Wheezing, SOB with exertion. denies: Cough - Gastrointestinal Gastrointestinal: denies: Abdominal pain, Abdominal distention, Constipation, Diarrhea, Change in bowel habits, Nausea, Vomiting - Genitourinary Genitourinary: denies: Dysuria, Frequency, Urgency, Hematuria - Musculoskeletal Musculoskeletal: denies: Muscle pain, Back pain - Integumentary Integumentary: denies: Rash, Pruritis, Lesions, Dryness - Neurological Neurological: reports: Headache. denies: General weakness, Focal weakness - Psychiatric Psychiatric: reports: Depression, Anxiety - Endocrine Endocrine: denies: Polyuria, Polydypsia - Hematologic/Lymphatic Hematologic/Lymphatic: denies: Anemia, Bruising Prior Level of Functionality: Patient resides at [facility] Exam - Vital Signs Vital Signs: Vital Signs x48h Temp Pulse Resp BP Pulse Ox 06/07/19 02:38 78 20 145/75 H 92 06/07/19 01:38 84 L 06/07/19 00:37 89 L 06/07/19 00:18 81 152/74 H 98 06/07/19 00:15 75 18 06/06/19 23:55 66 18 157/71 H 95 06/06/19 22:19 74 20 169/89 H 95 06/06/19 22:11 93 06/06/19 21:53 87 L 06/06/19 21:46 89 L 06/06/19 21:06 86 18 06/06/19 20:25 37.1 C 93 16 147/78 H 94 06/06/19 19:43 37.1 C 93 16 147/78 H 94 - Physical Exam General Appearance: positive: No acute distress, Alert. negative: Anxious, Lethargic Eyes Bilateral: positive: Normal inspection, PERRL, EOMI ENT: positive: ENT inspection nml, No signs of dehydration Neck: positive: Nml inspection, No JVD, Trachea midline Respiratory: positive: Chest non-tender, Wheezes Cardiovascular: positive: Regular rate & rhythm. negative: No murmur Abdomen: positive: Non-tender, No organomegaly, Nml bowel sounds, No distention Back: positive: Nml inspection Skin: positive: Color nml, No rash, Warm, Dry Extremities: positive: Non-tender, Full ROM, Nml appearance, No pedal edema Neurologic/Psychiatric: positive: Oriented x3, CN's nml (2-12), Motor nml, Sensation nml, Mood/affect nml Conclusion/Plan - Problem List (1) Acute respiratory failure with hypoxemia Conclusion/Plan: Maintain patient on nasal canula oxygen. Desaturation study later today for an home Oxygen prescription (2) Leukocytosis Conclusion/Plan: Likely reactive Patient also takes steroids. Recheck with am labs (3) COPD (chronic obstructive pulmonary disease) Conclusion/Plan: Not in exacerbation Will continue home breathing treatment. Will also add duoneb prn Qualifiers: Qualified Code(s): J44.1 - Chronic obstructive pulmonary disease with (acute) exacerbation (4) Seizure disorder Conclusion/Plan: On depakote (5) Diabetes Conclusion/Plan: On Januvia at home. Will order SSI and accuchecks (6) Depression Conclusion/Plan: On remeron and cymbalta Qualifiers: Depression Type: dysthymia Qualified Code(s): F34.1 - Dysthymic disorder (7) Anxiety Conclusion/Plan: On clonazepam (8) Migraine Conclusion/Plan: Patient uses sumatriptan prn. Given in the ED Given reglan, benadryl, dexamethasone, toradol and dilaudid in the ED Qualifiers: Migraine type: without aura Status migrainosus presence: without status migrainosus Intractability: not intractable Qualified Code(s): G43.009 - Migraine without aura, not intractable, without status migrainosus (9) Hyperlipidemia Conclusion/Plan: On atorvastatin (10) Bipolar disorder Conclusion/Plan: On zyprexa - Lab Results Fish Bones: 06/06/19 21:00 06/06/19 21:00 Core Measures - Anticipated LOS I expect patient to be DC'd or transferred within 96 hours.: Yes
[2019-06-07] MEDS: BUTALB/ACETAM/CAFF 50/325/40MG TABLET PO PRN ×2 (04:37→12:27)
[2019-06-07 05:25] LABS: BASOPHILS % (AUTO) 0.3 %; LYMPHOCYTES % (AUTO) 10.7 %; MEAN CORPUSCULAR HEMOGLOBIN 26.5 pg (27.0-31.0); MEAN CORPUSCULAR VOLUME 85.4 fL (81.0-99.0); MEAN PLATELET VOLUME 10.5 fL (7.9-10.8); MONOCYTES % (AUTO) 1.5 %; NEUTROPHILS % (AUTO) 84.4 %; PLT - PLATELET COUNT 396 10^3/uL (130-450); RED BLOOD COUNT 4.53 10^6/uL (4.20-5.40); RED CELL DISTRIBUTION WIDTH 19.1 % (12.0-15.0)
[2019-06-07 05:31] LABS: ABNORMAL LYMPHS % (MANUAL) 0 %
[2019-06-07 05:33] LABS: CALCIUM 9.1 mg/dL (8.5-10.3); CREATININE 0.7 mg/dL (0.4-1.0)
[2019-06-07 05:56] LABS: BAND NEUTROPHILS % (MANUAL) 2 %; LYMPHOCYTES # (MANUAL) 2.2 10^3/uL (1.5-3.5); LYMPHOCYTES % (MANUAL) 12 %; MONOCYTES # (MANUAL) 0.5 10^3/uL (0.0-1.0)
[2019-06-07 05:58] LABS: DIFFERENTIAL COMMENT MANUAL DIFFERENTIAL; PLATELET ESTIMATE, MANUAL NORMAL (130-450,000) (NORMAL); PLATELET MORPHOLOGY NORMAL APPEARANCE (NORMAL); RBC MORPHOLOGY (MULTIPLE) 1+ HYPOCHROMASIA (NORMAL)
[2019-06-07] MEDS ORDERED: SODIUM CHLORIDE FLUSH 0.9% 10 ML SYRINGE IVP SCH (09:00)
[2019-06-07] MEDS ORDERED: NICOTINE 21 MG PATCH TOP SCH (09:00)
[2019-06-07] MEDS ORDERED: POLYETHYLENE GLYCOL 3350 17 GM PACKET PO SCH (09:00)
[2019-06-07 11:50] VITALS: BP 113/67
--- NOTE | 2019-06-07 12:19 | Discharge Plan ---
"Discharge Plan for SNF / [facility] - Discharge Plan And Transition Orders Problem Reviewed?: Yes Disposition: 03 SNF DC/Xfer Condition: Stable Allergies and Adverse Reactions: Allergies Allergy/AdvReac Type Severity Reaction Status Date / Time azithromycin Allergy Severe Hives Verified 05/25/19 13:08 haloperidol Allergy Severe Anaphylaxis Verified 05/25/19 13:08 Penicillins Allergy Severe Anaphylaxis Verified 05/25/19 13:08 amoxicillin [Amoxicillin] Allergy Intermediate Rash Verified 05/25/19 13:08 grapefruit Allergy Intermediate Rash Verified 05/25/19 13:08 iodine Allergy Intermediate Rash Verified 05/25/19 13:08 Sulfa (Sulfonamide Allergy Intermediate Rash Verified 05/25/19 13:08 Antibiotics) shellfish derived Allergy Unknown Verified 05/25/19 13:08 haloperidol lactate * AdvReac Rash Verified 05/25/19 13:08 [From Haldol] bee sting Allergy Anaphylaxis Uncoded 05/25/19 13:08 Health Concerns: Seen for headaches and oxygen evaluation. You did not qualify for home O2 to be ordered. Plan of Treatment: Resume all your previous medications. See your PCP for further management of headaches. Care Goals: Return to prior level of functioning. Assessment: The plan was reviewed with the patient. - SNF / [facility] Transition Orders Admit to (Facility): [facility] Discharge Diagnosis: 1) Migraine headaches Patient uses sumatriptan prn. Given in the ED as well as reglan, benadryl, dexamethasone, toradol and dilaudid. 2) COPD Resume prior meds. She did not qualify for home O2. 3) Leukocytosis Liklely reactive and from chronic Prednisone use. (4) Seizure disorder (5) Diabetes (6) Depression (7) Anxiety (10) Bipolar disorder (9) Hyperlipidemia Medicare Certification Statement: I certify that Post Hospital long term care is medically necessary on a continuing basis for any of the conditions for which she/he is receiving care during hospitalization. Notify PCP of admission and forward orders to primary provider for signature. Weight on admission and: Monthly Other Notification Orders: Call PCP immediately if patient develops dyspnea, chest pain/tightness or edema. House Bowel Program: Yes Additional Bowel Program Orders: If no BM after 2 days, nurse may give M.O.M. 30ml PO PRN and/or ducolax Supp 1 DC and/or TAMELA 250mg P.O., and/or senna 1-2 tabs PO. On day 3 nurse may give repeat above order until residents constipation is resolved. Annual Influenza Vaccine (between May 11 and December 08): Yes Two-step PPD per [facility] [phone] or approved exception documents: Yes Medication Orders: PLEASE REFER TO THE DISCHARGE MEDICATION LIST. - Diet Type: Diabetic Texture: Regular Liquids: Thin May have monthly special meal: Yes - Therapies | Activity Rehabilitation Potential: Maximize functional status Activity: Activity as Tolerated Follow Up: See your PCP, Alethea Bolanos for any questions and for further treatment of the headaches and COPD."
[2019-06-07] MEDS ORDERED: NAPROXEN 250 MG TABLET PO SCH ×2 (12:26→21:00)
[2019-06-07] MEDS ORDERED: predniSONE 20 MG TABLET PO SCH (13:00)
[2019-06-07] MEDS ORDERED: (Umeclidinium Bromide [Incruse Ellipta] 62.5 MCG) INH SCH (13:52)
[2019-06-07] MEDS ORDERED: BENZONATATE 100 MG CAPSULE PO PRN (14:05)
[2019-06-07] MEDS ORDERED: SUMATRIPTAN 20 MG NAS PRN (14:05)
[2019-06-07] MEDS ORDERED: LORazepam 0.5 MG TABLET PO PRN (14:05)
[2019-06-07] MEDS ORDERED: ONDANSETRON ODT 4 MG TABLET PO PRN (14:05)
[2019-06-07] MEDS ORDERED: DICLOFENAC SODIUM 2 GM TOP PRN (14:05)
[2019-06-07] MEDS ORDERED: PRAZOSIN 1 MG CAPSULE PO PRN (14:05)
[2019-06-07] MEDS ORDERED: DIPHENOX/ATROPINE 2.5/0.025 MG TABLET PO PRN (14:05)
[2019-06-07] MEDS ORDERED: SUMAtriptan 6 MG/0.5 ML VIAL SUBQ PRN (14:30)
[2019-06-07] MEDS ORDERED: HYDROcod/ACETAM 5/325 MG TABLET PO PRN (14:30)
[2019-06-07] MEDS ORDERED: ALBUTEROL NEB 2.5 MG/3 ML INH PRN (14:36)
[2019-06-07] MEDS ORDERED: PRAZOSIN 1 MG CAPSULE PO SCH (21:00)
[2019-06-07] MEDS ORDERED: MIRTAZAPINE 15 MG TABLET PO SCH (21:00)
[2019-06-07] MEDS ORDERED: ATORVASTATIN 10 MG TABLET PO SCH (21:00)
[2019-06-07] MEDS ORDERED: BACLOFEN 10 MG TABLET PO SCH ×2 (21:00)
[2019-06-07] MEDS ORDERED: OLANZapine ODT 5 MG TABLET TL SCH (21:00)
[2019-06-07] MEDS ORDERED: DULoxetine 30 MG CAPSULE PO SCH (21:00)
[2019-06-07] MEDS ORDERED: DIVALPROEX DR 250 MG TABLET PO SCH (21:00)
[2019-06-07] MEDS ORDERED: traZODone 50 MG TABLET PO SCH (21:00)
[2019-06-07] MEDS ORDERED: clonazePAM 0.5 MG TABLET PO SCH (21:00)
[2019-06-08] MEDS ORDERED: PANTOPRAZOLE 40 MG TABLET PO SCH (07:00)
[2019-06-08] MEDS ORDERED: clonazePAM 0.5 MG TABLET PO SCH (08:00)
[2019-06-08] MEDS ORDERED: ASPIRIN EC 81 MG TABLET PO SCH (09:00)
[2019-06-08] MEDS ORDERED: OLANZapine ODT 5 MG TABLET TL SCH (09:00)
--- NOTE | 2019-06-11 11:03 | PROVIDER PROGRESS NOTE ---
Assessment/Plan - Problem List (1) Acute respiratory failure with hypoxemia Assessment/Plan: She stabilized overnight on supplemental oxygen and her COPD meds were continued. A desaturation study was done by RT to evaluate for a home Oxygen prescription, and she did not qualify fo home O2, as she maintained sats >92% at rest and with walking. She was discharged in stable condition to her Assisted Living residence on 06/07/19. (2) Leukocytosis Assessment/Plan: This was likely reactive since the patient also takes steroids and there were no signs of infection. (3) COPD (chronic obstructive pulmonary disease) Qualifiers: COPD type: unspecified COPD Qualified Code(s): J44.9 - Chronic obstructive pulmonary disease, unspecified Assessment/Plan: She was not in exacerbation. We continued her home breathing treatments. (4) Seizure disorder Assessment/Plan: Depakote continued (5) Diabetes Qualifiers: Diabetes mellitus type: type 2 Assessment/Plan: On Januvia at home. SS Insulin, carb-controlled diet and accuchecks while here. (6) Depression Assessment/Plan: She was continued on remeron and cymbalta (7) Anxiety Assessment/Plan: On clonazepam (8) Migraine Qualifiers: Migraine type: without aura Status migrainosus presence: without status migrainosus Intractability: not intractable Qualified Code(s): G43.009 - Migraine without aura, not intractable, without status migrainosus Assessment/Plan: Patient uses sumatriptan prn. Given reglan, benadryl, dexamethasone, toradol and dilaudid in the ED (9) Hyperlipidemia Assessment/Plan: On atorvastatin (10) Bipolar disorder Assessment/Plan: On zyprexa - Lab Result Fish Bone Diagrams: 06/07/19 05:14 06/07/19 05:14 - Additional Planning Time Spent: 15-30 minutes Subjective - Subjective Patient Reports: Feeling Better Objective Vital Signs: Oxygen O2 Source [With Activity] Room air O2 Source [Without Activity] Room air O2 Source Room air Oxygen Flow Rate 2 General: Alert HEENT: Mucous membr. moist/pink Neck: Supple, No JVD Neuro: Disoriented Cardiovascular: Regular rate Respiratory: No respiratory distress, Other (Has a wet cough) Abdomen: Soft Extremities: No edema - Results Results: Laboratory Results WBC 18.0 x10^3/uL (4.8-10.8) H 06/07/19 05:14 RBC 4.53 10^6/uL (4.20-5.40) 06/07/19 05:14 Hgb 12.0 g/dL (12.0-16.0) 06/07/19 05:14 Hct 38.7 % (37.0-47.0) 06/07/19 05:14 MCV 85.4 fL (81.0-99.0) 06/07/19 05:14 MCH 26.5 pg (27.0-31.0) L 06/07/19 05:14 MCHC 31.0 g/dL (32.0-36.0) L 06/07/19 05:14 RDW 19.1 % (12.0-15.0) H 06/07/19 05:14 Plt Count 396 10^3/uL (130-450) 06/07/19 05:14 MPV 10.5 fL (7.9-10.8) 06/07/19 05:14 Neut # (Auto) Not Reportable 06/07/19 05:14 Lymph # (Auto) Not Reportable 06/07/19 05:14 [place] # (Auto) Not Reportable 06/07/19 05:14 Eos # (Auto) Not Reportable 06/07/19 05:14 Baso # (Auto) Not Reportable 06/07/19 05:14 Absolute Nucleated RBC Not Reportable 06/07/19 05:14 Total Counted 100 06/07/19 05:14 Band Neuts % (Manual) 2 % (0-10) 06/07/19 05:14 Abnorm Lymph % (Manual) 0 % 06/07/19 05:14 Nucleated RBC % Not Reportable 06/07/19 05:14 Neutrophils # (Manual) 15.3 10^3/uL (1.5-6.6) H 06/07/19 05:14 Lymphocytes # (Manual) 2.2 10^3/uL (1.5-3.5) 06/07/19 05:14 Monocytes # (Manual) 0.5 10^3/uL (0.0-1.0) 06/07/19 05:14 Eosinophils # (Manual) 0.0 10^3/uL (0-0.7) 06/07/19 05:14 Basophils # (Manual) 0.0 10^3/uL (0-0.1) 06/07/19 05:14 Differential Comment MANUAL DIFFERENTIAL 06/07/19 05:14 WBC Morphology NORMAL APPEARANCE (NORMAL) 06/07/19 05:14 Platelet Estimate NORMAL (130-450,000) (NORMAL) 06/07/19 05:14 Platelet Morphology NORMAL APPEARANCE (NORMAL) 06/07/19 05:14 RBC Morph Micro Appear 1+ HYPOCHROMASIA (NORMAL) 06/07/19 05:14 Sodium 146 mmol/L (135-145) H 06/07/19 05:14 Potassium 4.5 mmol/L (3.5-5.0) 06/07/19 05:14 Chloride 111 mmol/L (101-111) 06/07/19 05:14 Carbon Dioxide 26 mmol/L (21-32) 06/07/19 05:14 Anion Gap 9.0 (6-13) 06/07/19 05:14 BUN 15 mg/dL (6-20) 06/07/19 05:14 Creatinine 0.7 mg/dL (0.4-1.0) 06/07/19 05:14 Estimated GFR (MDRD) 87 (>89) L 06/07/19 05:14 Glucose 218 mg/dL (70-100) H 06/07/19 05:14 Calcium 9.1 mg/dL (8.5-10.3) 06/07/19 05:14 Total Bilirubin 0.3 mg/dL (0.2-1.0) 06/06/19 21:00 AST 18 IU/L (10-42) 06/06/19 21:00 ALT 16 IU/L (10-60) 06/06/19 21:00 Alkaline Phosphatase 55 IU/L (42-121) 06/06/19 21:00 Total Protein 7.0 g/dL (6.7-8.2) 06/06/19 21:00 Albumin 3.7 g/dL (3.2-5.5) 06/06/19 21:00 Globulin 3.3 g/dL (2.1-4.2) 06/06/19 21:00 Albumin/Globulin Ratio 1.1 (1.0-2.2) 06/06/19 21:00 Lipase 16 U/L (22-51) L 06/06/19 21:00 Urine Color YELLOW 06/06/19 22:10 Urine Clarity CLEAR (CLEAR) 06/06/19 22:10 Urine pH 7.0 PH (5.0-7.5) 06/06/19 22:10 Ur Specific [place] <=1.005 (1.002-1.030) 06/06/19 22:10 Urine Protein NEGATIVE mg/dL (NEGATIVE) 06/06/19 22:10 Urine Glucose (UA) NEGATIVE mg/dL (NEGATIVE) 06/06/19 22:10 Urine Ketones NEGATIVE mg/dL (NEGATIVE) 06/06/19 22:10 Urine Occult Blood NEGATIVE (NEGATIVE) 06/06/19 22:10 Urine Nitrite NEGATIVE (NEGATIVE) 06/06/19 22:10 Urine Bilirubin NEGATIVE (NEGATIVE) 06/06/19 22:10 Urine Urobilinogen 0.2 (NORMAL) E.U./dL (NORMAL) 06/06/19 22:10 Ur Leukocyte Esterase NEGATIVE (NEGATIVE) 06/06/19 22:10 Ur Microscopic Review NOT INDICATED 06/06/19 22:10 Urine Culture Comments NOT INDICATED 06/06/19 22:10 - Procedures Procedures: Procedures ANESTH INJEC PERIPH NERV (06/29/14) COLONOSCOPY (05/21/15) EXCISION OF LOWER ESOPHAGUS, ENDO, DIAGN (03/17/16) EXCISION OF STOMACH, ENDO, DIAGN (03/17/16) EXCISION OF UPPER ESOPHAGUS, ENDO, DIAGN (03/17/16) OTH CHEST CAGE OSTECTOMY (04/29/15) RESPIRATORY VENTILATION, LESS THAN 24 CONSECUTIVE HOURS (06/22/15) ABX Reporting Has patient been on IV antibiotics over the past 48 hours?: No
== END 2019-06-07 14:30 ==
LOC: EDBD → ED 19:38 → MS3 06-07 02:33
PROVIDERS: ADMIT Internal Medicine; ATTEND Nurse Practitioner Gerontology
DX: J96.01 Acute respiratory failure with hypoxia (principal); D72.829 Elevated white blood cell count, unspecified; J44.9 Chronic obstructive pulmonary disease, unspecified; G43.009 Migraine without aura, not intractable, without status migrainosus; G40.909 Epilepsy, unspecified, not intractable, without status epilepticus; F34.1 Dysthymic disorder; F41.9 Anxiety disorder, unspecified; F31.9 Bipolar disorder, unspecified; F20.9 Schizophrenia, unspecified; F43.10 Post-traumatic stress disorder, unspecified; F17.210 Nicotine dependence, cigarettes, uncomplicated; E11.9 Type 2 diabetes mellitus without complications; E78.5 Hyperlipidemia, unspecified; I20.9 Angina pectoris, unspecified; K21.9 Gastro-esophageal reflux disease without esophagitis; K44.9 Diaphragmatic hernia without obstruction or gangrene; Z79.51 Long term (current) use of inhaled steroids; Z79.891 Long term (current) use of opiate analgesic; Z79.52 Long term (current) use of systemic steroids; Z87.01 Personal history of pneumonia (recurrent); Z86.73 Personal history of transient ischemic attack (TIA), and cerebral infarction without residual deficits
CPT/HCPCS: 36415; 71045; 80048; 80053; 81003; 83690; 85025; 94640; 94761; 96361; 96372; 96374; 96375; 99285; A9270; G0378; J1170; J1200; J2765; J7512; 81001; 87086

== ENCOUNTER 2019-06-15 00:34 | Outpatient (CLI) | payer MEDICARE, MEDICAID | END 2019-06-15 00:35 | disposition critical access hospital (66) | LOC: EMS 00:34 | PROVIDERS: ATTEND Surgery | DX: M25.561 Pain in right knee (principal); R11.10 Vomiting, unspecified; W18.30XA Fall on same level, unspecified, initial encounter; Y92.091 Bathroom in other non-institutional residence as the place of occurrence of the external cause | CPT/HCPCS: A0425; A0429 ==

== ENCOUNTER 2019-06-15 00:51 | Emergency (ER) | payer MEDICARE, MEDICAID ==
[2019-06-15] MEDS ORDERED: ONDANSETRON ODT 4 MG TABLET TL STA (02:39)
--- NOTE | 2019-06-15 03:43 | ED Physician Documentation ---
History of Present Illness - Stated complaint Stated Complaint: FELL - RIGHT KNEE PAIN, VOMITING - Chief complaint Chief Complaint: Trauma Ext - History obtained from History obtained from: Patient - History of Present Illness Timing: Other (various timeframes for multiple c/o) Pain level now: 8 Improved by: rest Worsened by: movement, ambulation - Additonal information Additional information: multiple c/o. patient has over [facility] ED visits over past 12 months. c/o right knee pain due to trip and fall earlier today c/o several days of increasing dyspnea and wheezing c/o left chest pain x 2-3 days c/o nausea, vomiting x 3 days Review of Systems Constitutional: reports: Reviewed and negative Cardiac: reports: Chest pain / pressure. denies: Palpitations Respiratory: reports: Dyspnea, Cough, Wheezing GI: reports: Nausea, Vomiting. 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 : None HEENT: None Psych: Depression, Bipolar disorder, Schizophrenia, Post traumatic stress disorder, Other Musculoskeletal: None Derm: None - Past Surgical History Past Surgical History: Yes General: Bowel surgery Ortho: Other /[employer] SAFETY PROGRAM COORDINATOR: 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 HEENT: Cataracts - Present Medications Home Medications: Ambulatory Orders Medication Instructions Recorded Confirmed Atorvastatin [Lipitor] 10 mg PO QPM 03/07/19 06/07/19 OLANZapine [Olanzapine] 10 mg PO DAILY 03/07/19 06/07/19 Sitagliptin Phosphate [Januvia] 50 mg PO DAILY 03/07/19 06/07/19 traZODone [Desyrel] 200 mg PO QPM 03/07/19 06/07/19 SUMAtriptan succinate [Sumatriptan 6 mg SQ DAILY PRN #2 units 05/15/19 06/07/19 Succinate] DULoxetine [Cymbalta] 30 mg PO BID 06/01/19 06/07/19 clonazePAM [Clonazepam] 0.5 mg PO 0800,1200 06/01/19 06/07/19 predniSONE [Prednisone] 20 mg PO [id number] 06/01/19 06/07/19 Albuterol Sulf [Ventolin Hfa 2 puffs INH Q4HR PRN 06/07/19 06/07/19 Inhaler] Aspirin [Aspirin EC] 81 mg PO DAILY 06/07/19 06/07/19 Baclofen 10 mg PO BID 06/07/19 06/07/19 Benzonatate 200 mg PO Q8H PRN 06/07/19 06/07/19 Diclofenac Sodium [Voltaren] 2 gm TOP QID PRN 06/07/19 06/07/19 Diphenoxylate/Atropine [Lomotil] 1 tab PO QID PRN 06/07/19 06/07/19 Divalproex Sodium 750 mg PO BID 06/07/19 06/07/19 Hydrocodone/Acetaminophen 1 tab PO Q8H PRN 06/07/19 06/07/19 [Hydrocodone-Acetamin 5-325 mg] LORazepam [Lorazepam] 0.5 mg PO BID PRN 06/07/19 06/07/19 Mirtazapine [Remeron] 45 mg PO QPM 06/07/19 06/07/19 Naproxen 375 mg PO BID 06/07/19 06/07/19 OLANZapine [Olanzapine] 20 mg PO QPM 06/07/19 06/07/19 Ondansetron [Ondansetron Odt] 4 mg PO Q6H PRN 06/07/19 06/07/19 Pantoprazole Sodium [Protonix] 40 mg PO QDAC 06/07/19 06/07/19 Prazosin HCl 1 mg PO BID 06/07/19 06/07/19 Prazosin HCl 1 mg PO DAILY PRN 06/07/19 06/07/19 SUMAtriptan [Sumatriptan] 20 mg ABE DAILY PRN 06/07/19 06/07/19 Umeclidinium [place] [Incruse 62.5 mcg INH DAILY 06/07/19 06/07/19 Ellipta] clonazePAM [Clonazepam] 1 mg PO QPM 06/07/19 06/07/19 Ondansetron Odt [Zofran] 4 mg TL Q6H PRN #10 tablet 06/15/19 predniSONE [Prednisone] 40 mg PO DAILY #8 tablet 06/15/19 - Allergies Allergies/Adverse Reactions: Allergies Allergy/AdvReac Type Severity Reaction Status Date / Time azithromycin Allergy Severe Hives Verified 05/25/19 13:08 haloperidol Allergy Severe Anaphylaxis Verified 05/25/19 13:08 Penicillins Allergy Severe Anaphylaxis Verified 05/25/19 13:08 amoxicillin [Amoxicillin] Allergy Intermediate Rash Verified 05/25/19 13:08 grapefruit Allergy Intermediate Rash Verified 05/25/19 13:08 iodine Allergy Intermediate Rash Verified 05/25/19 13:08 Sulfa (Sulfonamide Allergy Intermediate Rash Verified 05/25/19 13:08 Antibiotics) bee venom protein (honey bee) Allergy Anaphylaxis Verified 06/07/19 14:21 shellfish derived Allergy Unknown Verified 05/25/19 13:08 haloperidol lactate * AdvReac Rash Verified 05/25/19 13:08 [From Haldol] - Social History Does the pt smoke?: Yes Smoking Status: Former smoker Does the pt drink ETOH?: Yes Does the pt have substance abuse?: No - Immunizations Immunizations are current?: No Immunizations: TDAP >10years/unknown - POLST Patient has POLST: No POLST Status: Full Code PD ED PE NORMAL - Vitals Vital signs reviewed: Yes - General General: Alert and oriented X 3, No acute distress, Well developed/nourished - HEENT HEENT: Moist mucous membranes - Neck Neck: Supple, no meningeal sign - Cardiac Cardiac: RRR, No murmur - Respiratory Respiratory: No respiratory distress - Abdomen Abdomen: Soft, Non tender - Derm Derm: Normal color, Warm and dry - Extremities Extremities: No edema PD ED PE EXPANDED - Respiratory Respiratory: Wheezing Results - Vitals Vitals: Oxygen O2 Source [With Activity] Room air O2 Source [Without Activity] Room air O2 Source Room air - EKG (time done) No standard instances Rate: Rate (enter#) (70) Rhythm: NSR [place]: LAD (borderline) Intervals: Normal [place] QRS: Normal Ischemia: Normal ST segments Computer interpretation: Disagree with computer (no ST elevation) - Labs Labs: Laboratory Tests 06/15/19 06/15/19 06/15/19 04:10 04:10 04:10 WBC 12.9 H RBC 4.40 Hgb 12.0 Hct 38.0 MCV 86.4 MCH 27.3 MCHC 31.6 L RDW 18.6 H Plt Count 381 MPV 10.6 Neut # (Auto) 5.9 Lymph # (Auto) 4.8 H [place] # (Auto) 1.7 H Eos # (Auto) 0.3 Baso # (Auto) 0.1 Absolute Nucleated RBC 0.00 Band Neuts % (Manual) Not Reportable Abnorm Lymph % (Manual) Not Reportable Nucleated RBC % 0.0 Neutrophils # (Manual) Not Reportable Lymphocytes # (Manual) Not Reportable Monocytes # (Manual) Not Reportable Eosinophils # (Manual) Not Reportable Basophils # (Manual) Not Reportable Differential Comment MANUAL=AUTO DIFF WBC Morphology NORMAL SAM Platelet Estimate NORMAL (130-450,000) RBC Morph Micro Appear NORMAL APPEARANCE Sodium 142 Potassium 4.5 Chloride 103 Carbon Dioxide 29 Anion Gap 10.0 BUN 16 Creatinine 0.8 Estimated GFR (MDRD) 74 L Glucose 112 H Calcium 9.3 Total Bilirubin 0.3 AST 17 ALT 20 Alkaline Phosphatase 55 Troponin I High Sens 5.1 Total Protein 6.5 L Albumin 3.6 Globulin 2.9 Albumin/Globulin Ratio 1.2 Lipase 18 L - Rads (name of study) chest xray Radiology: Prelim report reviewed, See rad report right knee xrays Radiology: Prelim report reviewed, See rad report PD MEDICAL DECISION MAKING - ED course Complexity details: reviewed old records, reviewed results, re-evaluated patient, considered differential, d/w patient Departure - Departure Disposition: 01 Home, Self Care Clinical Impression: COPD exacerbation Knee sprain Qualifiers: Encounter type: initial encounter Involved ligament of knee: unspecified ligament Laterality: right Qualified Code(s): S83.91XA - Sprain of unspecified site of right knee, initial encounter Condition: Good Instructions: ED COPD Flare, ED Sprain Knee Follow-Up: Alethea Bolanos ARNP [Primary Care Provider] - Prescriptions: Ondansetron Odt [Zofran] 4 mg TL Q6H PRN #10 tablet PRN Reason: Nausea / Vomiting predniSONE [Prednisone] 40 mg PO DAILY #8 tablet Discharge Date/Time: 06/15/19 07:14
[2019-06-15] MEDS ORDERED: SUMAtriptan 6 MG/0.5 ML VIAL SUBQ STA (04:07)
[2019-06-15] MEDS ORDERED: ONDANSETRON 4 MG/2 ML VIAL IVP STA (04:07)
[2019-06-15] MEDS ORDERED: SODIUM CHLORIDE 0.9% 1,000 ML IV STA (04:07)
[2019-06-15] MEDS ORDERED: KETOROLAC 30 MG/ML VIAL IVP STA (04:07)
[2019-06-15] MEDS ORDERED: IPRATROPIUM/ALBUTEROL 3 ML NEB INH STA (04:08)
[2019-06-15 04:25] LABS: MEAN PLATELET VOLUME 10.6 fL (7.9-10.8)
[2019-06-15 04:28] LABS: BASOPHILS # (AUTO) 0.1 10^3/uL (0.0-0.1); BASOPHILS % (AUTO) 0.8 %; EOSINOPHILS # (AUTO) 0.3 10^3/uL (0.0-0.7); EOSINOPHILS % (AUTO) 2.6 %; LYMPHOCYTES # (AUTO) 4.8 10^3/uL (1.5-3.5); LYMPHOCYTES % (AUTO) 36.8 %; MEAN CORPUSCULAR HEMOGLOBIN 27.3 pg (27.0-31.0); MEAN CORPUSCULAR HGB CONC 31.6 g/dL (32.0-36.0); MEAN CORPUSCULAR VOLUME 86.4 fL (81.0-99.0); MONOCYTES # (AUTO) 1.7 10^3/uL (0.0-1.0); MONOCYTES % (AUTO) 13.4 %; NEUTROPHILS # (AUTO) 5.9 10^3/uL (1.5-6.6); NEUTROPHILS % (AUTO) 45.5 %; PLT - PLATELET COUNT 381 10^3/uL (130-450); RED CELL DISTRIBUTION WIDTH 18.6 % (12.0-15.0); WHITE BLOOD COUNT 12.9 x10^3/uL (4.8-10.8)
[2019-06-15 04:39] LABS: ALBUMIN 3.6 g/dL (3.2-5.5); ALBUMIN/GLOBULIN RATIO 1.2 (1.0-2.2); BILIRUBIN,TOTAL 0.3 mg/dL (0.2-1.0); CALCIUM 9.3 mg/dL (8.5-10.3); CREATININE 0.8 mg/dL (0.4-1.0); TOTAL PROTEIN 6.5 g/dL (6.7-8.2)
[2019-06-15 05:09] LABS: DIFFERENTIAL COMMENT MANUAL=AUTO DIFF; PLATELET ESTIMATE, MANUAL NORMAL (130-450,000) (NORMAL); RBC MORPHOLOGY (MULTIPLE) NORMAL APPEARANCE (NORMAL)
--- NOTE | 2019-06-15 05:26 | XRAY Report ---
Reason: fall, knee pain Procedure Date: 06/15/2019 Accession Number: [id number] / [id number] Procedure: XR - Knee 3 View RT CPT Code: FULL RESULT: EXAM: RIGHT KNEE RADIOGRAPHY EXAM DATE: 06/15/2019 04:49 AM. CLINICAL HISTORY: Fall, knee pain. COMPARISON: KNEE 4 VIEW RT 04/20/2019 4:57 PM. TECHNIQUE: 3 views. FINDINGS: Bones: No evidence of fracture. [place] sclerotic focus in the proximal tibia, compatible with previous bone infarction. Joints: Normal. No effusion. No subluxations. Soft Tissues: Normal. No soft tissue swelling. IMPRESSION: No evidence of acute fracture. No significant interval change. RADIA
--- NOTE | 2019-06-15 05:34 | XRAY Report ---
Reason: chest pain Procedure Date: 06/15/2019 Accession Number: [id number] / [id number] Procedure: XR - Chest 2 View X-Ray CPT Code: 79032 FULL RESULT: EXAM: CHEST RADIOGRAPHY EXAM DATE: 06/15/2019 05:24 AM. CLINICAL HISTORY: Chest pain. COMPARISON: CHEST 1 VIEW 06/06/2019 9:19 PM ABDOMEN/PELVIS W/ 05/20/2019 4:51 PM CHEST ANGIO 06/17/2013 6:24 PM CHEST 2 VIEW 05/26/2019 2:05 PM. TECHNIQUE: 2 views. FINDINGS: Lungs/Pleura: No focal pneumonia or edema evident. No gross pneumothorax or pleural effusion. Mediastinum: Mild cardiomegaly. Stable aortic contour. Other: None. IMPRESSION: Mild cardiomegaly without overt heart failure. RADIA
[2019-06-15] MEDS ORDERED: HYDROcod/ACETAM 5/325 MG TABLET PO STA (06:54)
[2019-06-15 07:13] VITALS: BP 107/75
== END 2019-06-15 07:14 | disposition home or self-care (01) ==
LOC: EDUNIT# → ED 00:51
DX: S83.91XA Sprain of unspecified site of right knee, initial encounter (principal); W18.30XA Fall on same level, unspecified, initial encounter; Y93.01 Activity, walking, marching and hiking; J44.1 Chronic obstructive pulmonary disease with (acute) exacerbation; E11.9 Type 2 diabetes mellitus without complications; Z87.891 Personal history of nicotine dependence
CPT/HCPCS: 36415; 71046; 73562; 80053; 83690; 84484; 85025; 94640; 96361; 96372; 96374; 96375; 99284; A9270; Q0162; 93005

== ENCOUNTER 2019-06-21 16:38 | Outpatient (CLI) | payer MEDICARE | END 2019-06-21 16:39 | disposition home or self-care (01) | LOC: EMS 16:38 | PROVIDERS: ATTEND Surgery | DX: M25.561 Pain in right knee (principal); W01.0XXA Fall on same level from slipping, tripping and stumbling without subsequent striking against object, initial encounter; Y92.092 Bedroom in other non-institutional residence as the place of occurrence of the external cause | CPT/HCPCS: A0425; A0429 ==

== ENCOUNTER 2019-06-21 16:57 | Emergency (ER) | payer MEDICAID, MEDICARE ==
[2019-06-21 17:05] VITALS: BP 151/97
[2019-06-21] MEDS ORDERED: ACETAMINOPHEN 325 MG TABLET PO STA (17:13)
--- NOTE | 2019-06-21 17:26 | ED Physician Documentation ---
PD HPI LOWER EXT INJURY - Stated complaint Stated Complaint: R KNEE PAIN - Chief complaint Chief Complaint: Trauma Ext - History obtained from History obtained from: Patient - History of Present Illness PD HPI LOW EXT INJURY LOCATION: Right, Knee Type of injury: Fall Where injury occurred: Home (her nursing facility) Timing - onset: How many hours ago (2) Timing - duration: Hours Timing - details: Abrupt onset Severity Comments: moderate pain Improved by: Rest Worsened by: Moving, Palpating, Other (ambulating) Associated symptoms: Swelling. No: Weakness, Numbness, Tingling Contributing factors: No: Anticoagulated, Prior ortho surgery, Prosthetic joint, Work related Recently seen: Emergency Dept - Treatment prior to arrival Treatment prior to arrival: placed in splint by EMS Review of Systems Ten Systems: 10 systems reviewed and negative Constitutional: denies: Fever, Chills Cardiac: reports: Reviewed and negative Respiratory: reports: Reviewed and negative GI: reports: Reviewed and negative Skin: reports: Other (bruise to R knee) Musculoskeletal: reports: Joint pain, Joint swelling. 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 : None HEENT: None Psych: Depression, Bipolar disorder, Schizophrenia, Post traumatic stress disorder, Other Musculoskeletal: None Derm: None - Past Surgical History Past Surgical History: Yes General: Bowel surgery Ortho: Other /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 COMPOUNDER MIXER: 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 HEENT: Cataracts - Present Medications Home Medications: Ambulatory Orders Medication Instructions Recorded Confirmed Atorvastatin [Lipitor] 10 mg PO QPM 03/07/19 06/07/19 OLANZapine [Olanzapine] 10 mg PO DAILY 03/07/19 06/07/19 Sitagliptin Phosphate [Januvia] 50 mg PO DAILY 03/07/19 06/07/19 traZODone [Desyrel] 200 mg PO QPM 03/07/19 06/07/19 SUMAtriptan succinate [Sumatriptan 6 mg SQ DAILY PRN #2 units 05/15/19 06/07/19 Succinate] DULoxetine [Cymbalta] 30 mg PO BID 06/01/19 06/07/19 clonazePAM [Clonazepam] 0.5 mg PO 0800,1200 06/01/19 06/07/19 predniSONE [Prednisone] 20 mg PO [id number] 06/01/19 06/07/19 Albuterol Sulf [Ventolin Hfa 2 puffs INH Q4HR PRN 06/07/19 06/07/19 Inhaler] Aspirin [Aspirin EC] 81 mg PO DAILY 06/07/19 06/07/19 Baclofen 10 mg PO BID 06/07/19 06/07/19 Benzonatate 200 mg PO Q8H PRN 06/07/19 06/07/19 Diclofenac Sodium [Voltaren] 2 gm TOP QID PRN 06/07/19 06/07/19 Diphenoxylate/Atropine [Lomotil] 1 tab PO QID PRN 06/07/19 06/07/19 Divalproex Sodium 750 mg PO BID 06/07/19 06/07/19 Hydrocodone/Acetaminophen 1 tab PO Q8H PRN 06/07/19 06/07/19 [Hydrocodone-Acetamin 5-325 mg] LORazepam [Lorazepam] 0.5 mg PO BID PRN 06/07/19 06/07/19 Mirtazapine [Remeron] 45 mg PO QPM 06/07/19 06/07/19 Naproxen 375 mg PO BID 06/07/19 06/07/19 OLANZapine [Olanzapine] 20 mg PO QPM 06/07/19 06/07/19 Ondansetron [Ondansetron Odt] 4 mg PO Q6H PRN 06/07/19 06/07/19 Pantoprazole Sodium [Protonix] 40 mg PO QDAC 06/07/19 06/07/19 Prazosin HCl 1 mg PO BID 06/07/19 06/07/19 Prazosin HCl 1 mg PO DAILY PRN 06/07/19 06/07/19 SUMAtriptan [Sumatriptan] 20 mg ABE DAILY PRN 06/07/19 06/07/19 Umeclidinium [place] [Incruse 62.5 mcg INH DAILY 06/07/19 06/07/19 Ellipta] clonazePAM [Clonazepam] 1 mg PO QPM 06/07/19 06/07/19 Ondansetron Odt [Zofran] 4 mg TL Q6H PRN #10 tablet 06/15/19 predniSONE [Prednisone] 40 mg PO DAILY #8 tablet 06/15/19 - Allergies Allergies/Adverse Reactions: Allergies Allergy/AdvReac Type Severity Reaction Status Date / Time azithromycin Allergy Severe Hives Verified 05/25/19 13:08 haloperidol Allergy Severe Anaphylaxis Verified 05/25/19 13:08 Penicillins Allergy Severe Anaphylaxis Verified 05/25/19 13:08 amoxicillin [Amoxicillin] Allergy Intermediate Rash Verified 05/25/19 13:08 grapefruit Allergy Intermediate Rash Verified 05/25/19 13:08 iodine Allergy Intermediate Rash Verified 05/25/19 13:08 Sulfa (Sulfonamide Allergy Intermediate Rash Verified 05/25/19 13:08 Antibiotics) bee venom protein (honey bee) Allergy Anaphylaxis Verified 06/07/19 14:21 shellfish derived Allergy Unknown Verified 05/25/19 13:08 haloperidol lactate * AdvReac Rash Verified 05/25/19 13:08 [From Haldol] - Social History Does the pt smoke?: Yes Smoking Status: Current every day smoker Does the pt drink ETOH?: No Does the pt have substance abuse?: No - Immunizations Immunizations are current?: No Immunizations: TDAP >10years/unknown - POLST Patient has POLST: No POLST Status: Full Code PD ED PE NORMAL - Vitals Vital signs reviewed: Yes - General General: Alert and oriented X 3, No acute distress, Well developed/nourished - HEENT HEENT: Atraumatic - Neck Neck: Supple, no meningeal sign, No JVD - Cardiac Cardiac: RRR, No murmur, No gallop, No rub - Respiratory Respiratory: No respiratory distress - Abdomen Abdomen: Soft, Non tender, Non distended - Female Female : Deferred - Rectal Rectal: Deferred - Derm Derm: Normal color, Warm and dry, No rash, Other (mild ecchymosis to R knee) - Extremities Extremities: No deformity, Normal ROM s pain, No edema, No calf tenderness / cord, Other (patient tolerates weight bearing ) - Neuro Neuro: Alert and oriented X 3, No motor deficit, No sensory deficit Eye Opening: Spontaneous Motor: Obeys Commands Verbal: Oriented GCS Score: 15 - Psych Psych: Normal mood, Normal affect PD ED PE EXPANDED - Cardiac Cardiac: No: Chest wall TTP - Extremities Extremities: Tenderness (to R knee), Swelling, Bruising. No: Deformity, Limited ROM, Abrasion, Laceration, Ligament laxity Results - Vitals Vitals: Vital Signs - 24 hr 06/21/19 16:58 Heart Rate 97 Respiratory 20 Rate Blood Pressure 151/97 H O2 Saturation 98 Oxygen O2 Source [] Room air O2 Source [] Room air O2 Source Room air - Rads (name of study) R knee xray Radiology: EMP read indepedently (negative for acute injury) PD MEDICAL DECISION MAKING - ED course Complexity details: reviewed results, re-evaluated patient, considered differential, d/w patient ED course: ddx- contusion, fracture, patellar injury, sprain of knee 54 y/o F with hx and exam as documented, has as a patellar contusion but no evidence of fracture or abnormality No other injuries, pt tripped and fell on R knee only. Xray negative. She is able to bear weight with assistance which is her baseline ambulatory status. Continue supportive care at home. Departure - Departure Disposition: 01 Home, Self Care Clinical Impression: Knee contusion Qualifiers: Encounter type: initial encounter Laterality: right Qualified Code(s): S80.01XA - Contusion of right knee, initial encounter Condition: Stable Record reviewed to determine appropriate education?: Yes Instructions: ED Contusion Lower Ext Follow-Up: Alethea Bolanos ARNP [Primary Care Provider] - As Needed Comments: Your xray today was negative for acute fracture or abnormality. You have a bruise on your knee. You can use ice and tylenol as needed for pain. Follow up with your doctor if symptoms persist. You can bear weight on your leg with assistance.
--- NOTE | 2019-06-21 18:20 | XRAY Report ---
Reason: fell on knee, patellar pain Procedure Date: 06/21/2019 Accession Number: [id number] / [id number] Procedure: XR - Knee 4 View RT CPT Code: FULL RESULT: EXAM: RIGHT KNEE RADIOGRAPHY EXAM DATE: 06/21/2019 05:40 PM. CLINICAL HISTORY: Fell on knee, patellar pain. COMPARISON: KNEE 3 VIEW RT 06/15/2019 4:49 AM. TECHNIQUE: 3 views. FINDINGS: Bones: No fractures of dislocations. Stable bone infarction proximal tibia. Joints: No effusion. No subluxations. Soft Tissues: No soft tissue swelling. IMPRESSION: No evidence for acute osseous injury. RADIA
== END 2019-06-21 18:07 | disposition home or self-care (01) ==
LOC: EDUNIT# → ED 16:57
DX: S80.01XA Contusion of right knee, initial encounter (principal); W01.0XXA Fall on same level from slipping, tripping and stumbling without subsequent striking against object, initial encounter; Y92.099 Unspecified place in other non-institutional residence as the place of occurrence of the external cause; E11.9 Type 2 diabetes mellitus without complications; Z79.84 Long term (current) use of oral hypoglycemic drugs; F17.200 Nicotine dependence, unspecified, uncomplicated; Z79.82 Long term (current) use of aspirin
CPT/HCPCS: 73564; 99283; 99284; A9270

== ENCOUNTER 2019-06-22 09:33 | Outpatient (CLI) | payer MEDICARE, MEDICAID | END 2019-06-22 09:34 | disposition critical access hospital (66) | LOC: EMS 09:33 | PROVIDERS: ATTEND Surgery | DX: R56.9 Unspecified convulsions (principal); R51 Headache; R11.10 Vomiting, unspecified; W19.XXXA Unspecified fall, initial encounter; Y92.099 Unspecified place in other non-institutional residence as the place of occurrence of the external cause; S30.811A Abrasion of abdominal wall, initial encounter; S70.312A Abrasion, left thigh, initial encounter; S70.311A Abrasion, right thigh, initial encounter; R44.0 Auditory hallucinations; X78.0XXA Intentional self-harm by sharp glass, initial encounter; Y92.009 Unspecified place in unspecified non-institutional (private) residence as the place of occurrence of the external cause | CPT/HCPCS: A0425; A0427; A0429 ==

== ENCOUNTER 2019-06-22 09:49 | Emergency (ER) | payer MEDICARE, MEDICAID ==
[2019-06-22] MEDS ORDERED: METOCLOPRAMIDE 10 MG/2 ML VIAL IVP STA (10:02)
[2019-06-22] MEDS ORDERED: diphenhydrAMINE INJ 50 MG/ML VIAL IVP STA (10:03)
--- NOTE | 2019-06-22 10:03 | ED Physician Documentation ---
PD HPI HEAD INJURY - Stated complaint Stated Complaint: SZ - History obtained from History obtained from: Patient, EMS - History of Present Illness Mechanism of head injury: Fell Where head injury occurred: Home (assisted living facility) Timing - onset: Today (just prior to arrival) Severity Comments: moderate frontal headache Quality of pain: Pain Associated symptoms: LOC, Nausea / vomiting, Neck pain, Seizures Symptoms improve with: Nothing Contributing factors: No: Anticoagulated, Intoxicated Similar symptoms before: Diagnosis (hx of prior seizures on depakote) Recently seen: Emergency Dept (yesterday for knee pain and a fall) - Treatment prior to arrival Treatment prior to arrival: C-collar placed by EMS - Additional information Additional information: Pt reports nausea and headache. Denies back pain, abdominal pain or chest pain. States she had a seizure prior to the fall. 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 : None HEENT: None Psych: Depression, Bipolar disorder, Schizophrenia, Post traumatic stress disorder, Other Musculoskeletal: None Derm: None - Past Surgical History Past Surgical History: Yes General: Bowel surgery Ortho: Other /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 SPECIALIST: 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 HEENT: Cataracts - Present Medications Home Medications: Ambulatory Orders Medication Instructions Recorded Confirmed Atorvastatin [Lipitor] 10 mg PO QPM 03/07/19 06/07/19 OLANZapine [Olanzapine] 10 mg PO DAILY 03/07/19 06/07/19 Sitagliptin Phosphate [Januvia] 50 mg PO DAILY 03/07/19 06/07/19 traZODone [Desyrel] 200 mg PO QPM 03/07/19 06/07/19 SUMAtriptan succinate [Sumatriptan 6 mg SQ DAILY PRN #2 units 05/15/19 06/07/19 Succinate] DULoxetine [Cymbalta] 30 mg PO BID 06/01/19 06/07/19 clonazePAM [Clonazepam] 0.5 mg PO 0800,1200 06/01/19 06/07/19 predniSONE [Prednisone] 20 mg PO [id number] 06/01/19 06/07/19 Albuterol Sulf [Ventolin Hfa 2 puffs INH Q4HR PRN 06/07/19 06/07/19 Inhaler] Aspirin [Aspirin EC] 81 mg PO DAILY 06/07/19 06/07/19 Baclofen 10 mg PO BID 06/07/19 06/07/19 Benzonatate 200 mg PO Q8H PRN 06/07/19 06/07/19 Diclofenac Sodium [Voltaren] 2 gm TOP QID PRN 06/07/19 06/07/19 Diphenoxylate/Atropine [Lomotil] 1 tab PO QID PRN 06/07/19 06/07/19 Divalproex Sodium 750 mg PO BID 06/07/19 06/07/19 Hydrocodone/Acetaminophen 1 tab PO Q8H PRN 06/07/19 06/07/19 [Hydrocodone-Acetamin 5-325 mg] LORazepam [Lorazepam] 0.5 mg PO BID PRN 06/07/19 06/07/19 Mirtazapine [Remeron] 45 mg PO QPM 06/07/19 06/07/19 Naproxen 375 mg PO BID 06/07/19 06/07/19 OLANZapine [Olanzapine] 20 mg PO QPM 06/07/19 06/07/19 Ondansetron [Ondansetron Odt] 4 mg PO Q6H PRN 06/07/19 06/07/19 Pantoprazole Sodium [Protonix] 40 mg PO QDAC 06/07/19 06/07/19 Prazosin HCl 1 mg PO BID 06/07/19 06/07/19 Prazosin HCl 1 mg PO DAILY PRN 06/07/19 06/07/19 SUMAtriptan [Sumatriptan] 20 mg ABE DAILY PRN 06/07/19 06/07/19 Umeclidinium [place] [Incruse 62.5 mcg INH DAILY 06/07/19 06/07/19 Ellipta] clonazePAM [Clonazepam] 1 mg PO QPM 06/07/19 06/07/19 Ondansetron Odt [Zofran] 4 mg TL Q6H PRN #10 tablet 06/15/19 predniSONE [Prednisone] 40 mg PO DAILY #8 tablet 06/15/19 - Allergies Allergies/Adverse Reactions: Allergies Allergy/AdvReac Type Severity Reaction Status Date / Time azithromycin Allergy Severe Hives Verified 06/22/19 10:04 haloperidol Allergy Severe Anaphylaxis Verified 06/22/19 10:04 Penicillins Allergy Severe Anaphylaxis Verified 06/22/19 10:04 amoxicillin [Amoxicillin] Allergy Intermediate Rash Verified 06/22/19 10:04 grapefruit Allergy Intermediate Rash Verified 06/22/19 10:04 iodine Allergy Intermediate Rash Verified 06/22/19 10:04 Sulfa (Sulfonamide Allergy Intermediate Rash Verified 06/22/19 10:04 Antibiotics) bee venom protein (honey bee) Allergy Anaphylaxis Verified 06/22/19 10:04 shellfish derived Allergy Unknown Verified 06/22/19 10:04 haloperidol lactate * AdvReac Rash Verified 06/22/19 10:04 [From Haldol] - Social History Does the pt smoke?: Yes Smoking Status: Current every day smoker Does the pt drink ETOH?: No Does the pt have substance abuse?: No - Immunizations Immunizations are current?: No Immunizations: TDAP >10years/unknown - POLST Patient has POLST: No POLST Status: Full Code PD ED PE NORMAL - Vitals Vital signs reviewed: Yes - General General: Alert and oriented X 3, No acute distress, Well developed/nourished, Other (appears uncomfortable ) - HEENT HEENT: PERRL, EOMI, Moist mucous membranes, Pharynx benign - Neck Neck: Supple, no meningeal sign, No JVD, Other (patient in c-collar ) - Cardiac Cardiac: RRR - Respiratory Respiratory: No respiratory distress, Clear bilaterally - Abdomen Abdomen: Soft, Non tender, Non distended - Female Female : Deferred - Rectal Rectal: Deferred - Back Back: No spinal TTP - Derm Derm: Normal color, Warm and dry, No rash - Extremities Extremities: No deformity, No tenderness to palpate, Normal ROM s pain, No edema, No calf tenderness / cord - Neuro Neuro: Alert and oriented X 3, No motor deficit, No sensory deficit, Normal speech Eye Opening: Spontaneous Motor: Obeys Commands Verbal: Oriented GCS Score: 15 - Psych Psych: Normal mood, Normal affect Results - Vitals Vitals: Vital Signs - 24 hr 06/22/19 06/22/19 09:58 12:22 Temperature 36.6 C 36.8 C Heart Rate 87 78 Respiratory 16 12 Rate Blood Pressure 144/85 H 135/77 H O2 Saturation 95 96 Oxygen O2 Source [] Room air O2 Source [] Room air O2 Source Room air - EKG (time done) 10:26 Rate: Rate (enter#) Rhythm: NSR [place]: LAD Intervals: Normal ID, QRS normal Ischemia: Normal ST segments Computer interpretation: Agree with computer - Labs Labs: Laboratory Tests 06/22/19 06/22/19 06/22/19 11:00 11:00 11:00 WBC 11.5 H RBC 4.56 Hgb 12.5 Hct 39.8 MCV 87.3 MCH 27.4 MCHC 31.4 L RDW 19.6 H Plt Count 277 MPV 11.7 H Neut # (Auto) 5.9 Lymph # (Auto) 3.7 H [place] # (Auto) 1.5 H Eos # (Auto) 0.2 Baso # (Auto) 0.1 Absolute Nucleated RBC 0.00 Nucleated RBC % 0.0 Sodium 140 Potassium 4.5 Chloride 106 Carbon Dioxide 25 Anion Gap 9.0 BUN 17 Creatinine 0.9 Estimated GFR (MDRD) 65 L Glucose 109 H Calcium 9.1 Total Bilirubin 0.5 AST 16 ALT 17 Alkaline Phosphatase 51 Total Protein 7.0 Albumin 3.7 Globulin 3.3 Albumin/Globulin Ratio 1.1 Lipase 21 L Last Dose Date UNK Last Dose Time UNK Valproic Acid 40.0 - Rads (name of study) CT head Radiology: Final report received, See rad report (negative ) CT Cervical spine Radiology: Final report received, See rad report (negative) PD MEDICAL DECISION MAKING - ED course Complexity details: reviewed results, re-evaluated patient, considered differential, d/w patient ED course: ddx - ICH, concussion, closed head injury, seizure, pseudoseizure, syncope, arrhythmia 54 y/o F with multiple visits for nonepileptic seizures on depakote and poorly compliant with possible seizure today, fell and hit her head, arrived in a c- collar and was vomiting on arrival. GCS15, pt is not anticoagulated. CT head and Cspine negative thus cleared her C-collar. She was given antiemetics and analgesics for her headache with some improvement. Pt is no longer vomiting, tolerating pO and ambulating. Her depakote was subtherapeutic thus she was given a loading dose here and can continue her regular meds at home. Discussed results and pt is stable for discharge. Departure - Departure Disposition: 01 Home, Self Care Clinical Impression: Seizure Headache Qualifiers: Headache type: post-traumatic Headache chronicity pattern: acute headache Intractability: not intractable Qualified Code(s): G44.319 - Acute post- traumatic headache, not intractable Condition: Stable Record reviewed to determine appropriate education?: Yes Instructions: ED Head Injury Closed Follow-Up: Alethea Bolanos ARNP [Primary Care Provider] - As Needed Comments: You were evaluated for a head injury after a possible seizure and a fall. Your head and cervical spine CT scans were normal. You may have a concussion and can take tylenol and ibuprofen as needed for head pain. Your valproic acid level was less than therapuetic thus you were given a dose of this medication. You are stable to return home
--- NOTE | 2019-06-22 11:07 | CT Report ---
Reason: fall, head trauma Procedure Date: 06/22/2019 Accession Number: [id number] / [id number] Procedure: CT - CERVICAL SPINE WO CPT Code: FULL RESULT: EXAM: CT CERVICAL SPINE WITHOUT CONTRAST DATE: 06/22/2019 10:16 AM. HISTORY: Fall, head trauma. COMPARISONS: CERVICAL SPINE W/O 04/29/2019 5:31 PM. TECHNIQUE: Thin-section axial images were acquired of the cervical spine without contrast. Post-processing: Coronal and sagittal reformats. Other: None. In accordance with CT protocol optimization, one or more of the following dose reduction techniques were utilized for this exam: automated exposure control, adjustment of mA and/or KV based on patient size, or use of iterative reconstructive technique. FINDINGS: Alignment: No scoliosis or spondylolisthesis. Bones: No visible fracture. Interspace Levels/Facets: C2-C3: There is a large right paracentral disk osteophyte complex causing mild canal narrowing, deviating the cord towards the left. There is moderate right foraminal narrowing. The left neural foramen is patent. Mild disk space narrowing with endplate osteophyte formation at C6-C7 and C7-T1. Minimal mild canal narrowing at C5-C6 and C6-C7. Moderate right and mild left foraminal narrowing at C5-C6. Mild bilateral foraminal narrowing at C6-C7. Musculature: Normal. No fatty atrophy. Other: The paravertebral and prevertebral soft tissues are unremarkable.The lung apices are clear. IMPRESSION: 1. No visible fracture. Mild degenerative change. 2. No significant change since the prior study. RADIA
--- NOTE | 2019-06-22 11:08 | CT Report ---
Reason: head trauma, fall, vomiting Procedure Date: 06/22/2019 Accession Number: [id number] / [id number] Procedure: CT - HEAD WO CPT Code: FULL RESULT: EXAM: CT HEAD EXAM DATE: 06/22/2019 10:27 AM. CLINICAL HISTORY: Trauma. COMPARISON: CERVICAL SPINE W/O 04/29/2019 5:31 PM. TECHNIQUE: Multiaxial CT images were obtained from the foramen magnum to the vertex. Reformats: Sagittal and coronal. IV contrast: None. In accordance with CT protocol optimization, one or more of the following dose reduction techniques were utilized for this exam: automated exposure control, adjustment of mA and/or KV based on patient size, or use of iterative reconstructive technique. FINDINGS: Parenchyma: No intraparenchymal hemorrhage. No evidence of mass, midline shift, or CT findings of infarction. Lora-white differentiation is distinct. Extraaxial Spaces: Normal for age. No subdural or epidural collections identified. Ventricles: Normal in size and position. Sinuses and Orbits: Imaged paranasal sinuses, orbits, and mastoids show no significant abnormality. Bones: No evidence of fracture or calvarial defect. Other: None. IMPRESSION: Normal head CT. RADIA
[2019-06-22] MEDS ORDERED: SODIUM CHLORIDE 0.9% 1,000 ML IV ONE (11:20)
[2019-06-22] MEDS ORDERED: KETOROLAC 30 MG/ML VIAL IVP STA (11:20)
[2019-06-22 11:23] LABS: BASOPHILS # (AUTO) 0.1 10^3/uL (0.0-0.1); HGB - HEMOGLOBIN 12.5 g/dL (12.0-16.0); LYMPHOCYTES % (AUTO) 32.4 %; MEAN PLATELET VOLUME 11.7 fL (7.9-10.8)
[2019-06-22 11:32] LABS: EOSINOPHILS # (AUTO) 0.2 10^3/uL (0.0-0.7); EOSINOPHILS % (AUTO) 1.7 %; LYMPHOCYTES # (AUTO) 3.7 10^3/uL (1.5-3.5); MEAN CORPUSCULAR HEMOGLOBIN 27.4 pg (27.0-31.0); MEAN CORPUSCULAR HGB CONC 31.4 g/dL (32.0-36.0); MEAN CORPUSCULAR VOLUME 87.3 fL (81.0-99.0); MONOCYTES # (AUTO) 1.5 10^3/uL (0.0-1.0); MONOCYTES % (AUTO) 12.9 %; NEUTROPHILS # (AUTO) 5.9 10^3/uL (1.5-6.6); PLT - PLATELET COUNT 277 10^3/uL (130-450); RED BLOOD COUNT 4.56 10^6/uL (4.20-5.40); RED CELL DISTRIBUTION WIDTH 19.6 % (12.0-15.0); WHITE BLOOD COUNT 11.5 x10^3/uL (4.8-10.8)
[2019-06-22 11:34] LABS: ALBUMIN 3.7 g/dL (3.2-5.5); ALBUMIN/GLOBULIN RATIO 1.1 (1.0-2.2); BILIRUBIN,TOTAL 0.5 mg/dL (0.2-1.0); CALCIUM 9.1 mg/dL (8.5-10.3); CREATININE 0.9 mg/dL (0.4-1.0)
[2019-06-22] MEDS ORDERED: VALPROATE INJ 500 MG in SODIUM CHLORIDE 0.9% 100ML 100 ML IV STA (12:07)
[2019-06-22 12:22] VITALS: BP 135/77
== END 2019-06-22 13:59 | disposition home or self-care (01) ==
LOC: EDUNIT# → ED 09:49
DX: R56.9 Unspecified convulsions (principal); G44.319 Acute post-traumatic headache, not intractable; W19.XXXA Unspecified fall, initial encounter; Y92.099 Unspecified place in other non-institutional residence as the place of occurrence of the external cause; M48.02 Spinal stenosis, cervical region; E11.9 Type 2 diabetes mellitus without complications; Z79.84 Long term (current) use of oral hypoglycemic drugs; F17.200 Nicotine dependence, unspecified, uncomplicated; Z79.82 Long term (current) use of aspirin
CPT/HCPCS: 36415; 70450; 72125; 80053; 80164; 83690; 85025; 93005; 96365; 96375; 99284

== ENCOUNTER 2019-06-22 19:17 | Outpatient (CLI) | payer MEDICARE, MEDICAID | END 2019-06-22 19:18 | disposition critical access hospital (66) | LOC: EMS 19:17 | PROVIDERS: ATTEND Surgery | DX: S30.811A Abrasion of abdominal wall, initial encounter (principal); S70.312A Abrasion, left thigh, initial encounter; S70.311A Abrasion, right thigh, initial encounter; R44.0 Auditory hallucinations; X78.0XXA Intentional self-harm by sharp glass, initial encounter; Y92.099 Unspecified place in other non-institutional residence as the place of occurrence of the external cause ==

== ENCOUNTER 2019-06-22 19:36 | Emergency (ER) | payer MEDICARE, MEDICAID ==
[2019-06-22 19:45] VITALS: BP 103/65
[2019-06-22 20:01] LABS: BASOPHILS % (AUTO) 0.8 %; EOSINOPHILS % (AUTO) 1.8 %; HGB - HEMOGLOBIN 11.6 g/dL (12.0-16.0); LYMPHOCYTES % (AUTO) 32.2 %; MEAN CORPUSCULAR HEMOGLOBIN 27.6 pg (27.0-31.0); MEAN CORPUSCULAR HGB CONC 31.5 g/dL (32.0-36.0); MEAN CORPUSCULAR VOLUME 87.6 fL (81.0-99.0); MEAN PLATELET VOLUME 10.9 fL (7.9-10.8); MONOCYTES % (AUTO) 14.4 %; NEUTROPHILS % (AUTO) 49.9 %; PLT - PLATELET COUNT 265 10^3/uL (130-450); RED CELL DISTRIBUTION WIDTH 19.2 % (12.0-15.0); WHITE BLOOD COUNT 12.8 x10^3/uL (4.8-10.8)
[2019-06-22] MEDS ORDERED: diazePAM 5 MG TABLET PO STA (20:09)
--- NOTE | 2019-06-22 20:12 | ED Physician Documentation ---
PD HPI MHE - Stated complaint Stated Complaint: ABD/THIGH LACS - Chief complaint Chief Complaint: MHE - History obtained from History obtained from: Patient, EMS - History of Present Illness Primary symptom: Other (She cut herself with a sharp piece of glass tonight. There was no suicidal or homicidal intent. She has no specific complaints otherwise. 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 : None HEENT: None Psych: Depression, Bipolar disorder, Schizophrenia, Post traumatic stress disorder, Other Musculoskeletal: None Derm: None - Past Surgical History Past Surgical History: Yes General: Bowel surgery Ortho: Other /ARBORIST CLIMBER: 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 HEENT: Cataracts - Present Medications Home Medications: Ambulatory Orders Medication Instructions Recorded Confirmed Atorvastatin [Lipitor] 10 mg PO QPM 03/07/19 06/07/19 OLANZapine [Olanzapine] 10 mg PO DAILY 03/07/19 06/07/19 Sitagliptin Phosphate [Januvia] 50 mg PO DAILY 03/07/19 06/07/19 traZODone [Desyrel] 200 mg PO QPM 03/07/19 06/07/19 SUMAtriptan succinate [Sumatriptan 6 mg SQ DAILY PRN #2 units 05/15/19 06/07/19 Succinate] DULoxetine [Cymbalta] 30 mg PO BID 06/01/19 06/07/19 clonazePAM [Clonazepam] 0.5 mg PO 0800,1200 06/01/19 06/07/19 predniSONE [Prednisone] 20 mg PO [id number] 06/01/19 06/07/19 Albuterol Sulf [Ventolin Hfa 2 puffs INH Q4HR PRN 06/07/19 06/07/19 Inhaler] Aspirin [Aspirin EC] 81 mg PO DAILY 06/07/19 06/07/19 Baclofen 10 mg PO BID 06/07/19 06/07/19 Benzonatate 200 mg PO Q8H PRN 06/07/19 06/07/19 Diclofenac Sodium [Voltaren] 2 gm TOP QID PRN 06/07/19 06/07/19 Diphenoxylate/Atropine [Lomotil] 1 tab PO QID PRN 06/07/19 06/07/19 Divalproex Sodium 750 mg PO BID 06/07/19 06/07/19 Hydrocodone/Acetaminophen 1 tab PO Q8H PRN 06/07/19 06/07/19 [Hydrocodone-Acetamin 5-325 mg] LORazepam [Lorazepam] 0.5 mg PO BID PRN 06/07/19 06/07/19 Mirtazapine [Remeron] 45 mg PO QPM 06/07/19 06/07/19 Naproxen 375 mg PO BID 06/07/19 06/07/19 OLANZapine [Olanzapine] 20 mg PO QPM 06/07/19 06/07/19 Ondansetron [Ondansetron Odt] 4 mg PO Q6H PRN 06/07/19 06/07/19 Pantoprazole Sodium [Protonix] 40 mg PO QDAC 06/07/19 06/07/19 Prazosin HCl 1 mg PO BID 06/07/19 06/07/19 Prazosin HCl 1 mg PO DAILY PRN 06/07/19 06/07/19 SUMAtriptan [Sumatriptan] 20 mg ABE DAILY PRN 06/07/19 06/07/19 Umeclidinium [place] [Incruse 62.5 mcg INH DAILY 06/07/19 06/07/19 Ellipta] clonazePAM [Clonazepam] 1 mg PO QPM 06/07/19 06/07/19 Ondansetron Odt [Zofran] 4 mg TL Q6H PRN #10 tablet 06/15/19 predniSONE [Prednisone] 40 mg PO DAILY #8 tablet 06/15/19 - Allergies Allergies/Adverse Reactions: Allergies Allergy/AdvReac Type Severity Reaction Status Date / Time azithromycin Allergy Severe Hives Verified 06/22/19 10:04 haloperidol Allergy Severe Anaphylaxis Verified 06/22/19 10:04 Penicillins Allergy Severe Anaphylaxis Verified 06/22/19 10:04 amoxicillin [Amoxicillin] Allergy Intermediate Rash Verified 06/22/19 10:04 grapefruit Allergy Intermediate Rash Verified 06/22/19 10:04 iodine Allergy Intermediate Rash Verified 06/22/19 10:04 Sulfa (Sulfonamide Allergy Intermediate Rash Verified 06/22/19 10:04 Antibiotics) bee venom protein (honey bee) Allergy Anaphylaxis Verified 06/22/19 10:04 shellfish derived Allergy Unknown Verified 06/22/19 10:04 haloperidol lactate * AdvReac Rash Verified 06/22/19 10:04 [From Haldol] - Social History Does the pt smoke?: Yes Smoking Status: Current every day smoker Does the pt drink ETOH?: No Does the pt have substance abuse?: No - Immunizations Immunizations are current?: No Immunizations: TDAP >10years/unknown - POLST Patient has POLST: No POLST Status: Full Code PD ED PE NORMAL - Vitals Vital signs reviewed: Yes - General General: Alert and oriented X 3, No acute distress - Abdomen Abdomen: Soft, Non tender - Derm Derm: Other (Shallow scratches on the lower abdominal wall and the both thighs.) - Neuro Neuro: Alert and oriented X 3, Normal speech Results - Vitals Vitals: Vital Signs - 24 hr 06/22/19 19:40 Temperature 37.2 C Heart Rate 88 Respiratory 18 Rate Blood Pressure 103/65 O2 Saturation 95 Oxygen O2 Source [With Activity] Room air O2 Source [Without Activity] Room air O2 Source Room air PD MEDICAL DECISION MAKING - ED course ED course: She is not suicidal. I offered Voluntary hospitalization for psychiatric stabilization which she refused. No indication for involuntary treatment. Departure - Departure Disposition: 01 Home, Self Care Clinical Impression: Superficial laceration Condition: Good Record reviewed to determine appropriate education?: Yes Instructions: ED Abrasion Comments: Follow-up with your psychiatrist, next available appointment. The scratches are quite shallow and require no specific wound care other than soap and water daily.
[2019-06-22 20:15] LABS: ACETAMINOPHEN 18 ug/mL (10-30); ALBUMIN 3.5 g/dL (3.2-5.5); ALBUMIN/GLOBULIN RATIO 1.3 (1.0-2.2); ALKALINE PHOSPHATASE 50 IU/L (42-121); ALT ALANINE AMINOTRANSFERASE 16 IU/L (10-60); AST ASPARTATE AMINOTRANSFERASE 16 IU/L (10-42); BILIRUBIN,TOTAL 0.4 mg/dL (0.2-1.0); BUN - BLOOD UREA NITROGEN 18 mg/dL (6-20); CALCIUM 8.6 mg/dL (8.5-10.3); CARBON DIOXIDE - CO2 27 mmol/L (21-32); CHLORIDE 107 mmol/L (101-111); CREATININE 0.8 mg/dL (0.4-1.0); GFR - MDRD 74 (>89); GLUCOSE 112 mg/dL (70-100); LIPASE 17 U/L (22-51); SALICYLATE < 6.0 mg/dL; SODIUM 143 mmol/L (135-145); TOTAL PROTEIN 6.2 g/dL (6.7-8.2)
[2019-06-22 20:20] LABS: VALPROIC ACID (DEPAKOTE) 35.5 ug/mL
[2019-06-22] MEDS ORDERED: BACITRACIN ZINC OINT 14 GM TOP STA (20:30)
[2019-06-22 20:34] LABS: ABNORMAL LYMPHS % (MANUAL) 0 %
[2019-06-22] MEDS ORDERED: BACITRACIN ZINC OINT 14 GM TOP ONE (20:37)
[2019-06-22 20:57] LABS: BAND NEUTROPHILS % (MANUAL) 1 %; EOSINOPHILS # (MANUAL) 0.3 10^3/uL (0-0.7); LYMPHOCYTES # (MANUAL) 2.9 10^3/uL (1.5-3.5); LYMPHOCYTES % (MANUAL) 23 %; MONOCYTES # (MANUAL) 1.3 10^3/uL (0.0-1.0)
[2019-06-22 20:58] LABS: PLATELET ESTIMATE, MANUAL NORMAL (130-450,000) (NORMAL); PLATELET MORPHOLOGY NORMAL APPEARANCE (NORMAL)
[2019-06-22 21:03] LABS: DIFFERENTIAL COMMENT MANUAL DIFFERENTIAL
== END 2019-06-22 21:00 | disposition home or self-care (01) ==
LOC: ED 19:36
DX: S31.119A Laceration without foreign body of abdominal wall, unspecified quadrant without penetration into peritoneal cavity, initial encounter (principal); S71.112A Laceration without foreign body, left thigh, initial encounter; S71.111A Laceration without foreign body, right thigh, initial encounter; X78.0XXA Intentional self-harm by sharp glass, initial encounter; F20.9 Schizophrenia, unspecified; F31.9 Bipolar disorder, unspecified; R56.9 Unspecified convulsions; G44.319 Acute post-traumatic headache, not intractable; W19.XXXA Unspecified fall, initial encounter; Y92.099 Unspecified place in other non-institutional residence as the place of occurrence of the external cause; M48.02 Spinal stenosis, cervical region; E11.9 Type 2 diabetes mellitus without complications; Z79.84 Long term (current) use of oral hypoglycemic drugs; F17.200 Nicotine dependence, unspecified, uncomplicated; Z79.82 Long term (current) use of aspirin
CPT/HCPCS: 36415; 70450; 72125; 80053; 80164; 83690; 84443; 85025; 93005; 96365; 96375; 99282; 99283; 99284; A9270; J1200; J2765; 80307; 80320; 80329

== ENCOUNTER 2019-06-23 16:22 | Outpatient (CLI) | payer MEDICARE, MEDICAID | END 2019-06-23 16:23 | disposition critical access hospital (66) | LOC: EMS 16:22 | PROVIDERS: ATTEND Surgery | DX: R45.851 Suicidal ideations (principal) | CPT/HCPCS: A0425; A0429 ==

== ENCOUNTER 2019-06-23 16:41 | Emergency (ER) | payer MEDICARE, MEDICAID ==
[2019-06-23] MEDS ORDERED: diazePAM 5 MG TABLET PO STA (16:52)
--- NOTE | 2019-06-23 16:54 | ED Physician Documentation ---
PD HPI MHE - Stated complaint Stated Complaint: MHE - Chief complaint Chief Complaint: MHE - History obtained from History obtained from: Patient, EMS - History of Present Illness Primary symptom: Suicidal ideation (She wrapped in Anton bandage around her neck this morning. She would like to be hospitalized for suicidal ideation. Of note and I discussed this with her last night, she has had increasing emergency department visits over the last few days, this is her fourth visit in 3 days and fifth visit in a little over a week. She denies any unprescribed substance use today. 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 : None HEENT: None Psych: Depression, Bipolar disorder, Schizophrenia, Post traumatic stress disorder, Other Musculoskeletal: None Derm: None - Past Surgical History Past Surgical History: Yes General: Bowel surgery Ortho: Other /ICE RESURFACING MACHINE OPERATORS: 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 HEENT: Cataracts - Present Medications Home Medications: Ambulatory Orders Medication Instructions Recorded Confirmed Atorvastatin [Lipitor] 10 mg PO QPM 03/07/19 06/23/19 OLANZapine [Olanzapine] 10 mg PO DAILY 03/07/19 06/23/19 Sitagliptin Phosphate [Januvia] 50 mg PO DAILY 03/07/19 06/23/19 traZODone [Desyrel] 200 mg PO QPM 03/07/19 06/23/19 SUMAtriptan succinate [Sumatriptan 6 mg SQ DAILY PRN #2 units 05/15/19 06/23/19 Succinate] DULoxetine [Cymbalta] 30 mg PO BID 06/01/19 06/23/19 clonazePAM [Clonazepam] 0.5 mg PO 0800,1200 06/01/19 06/23/19 Aspirin [Aspirin EC] 81 mg PO DAILY 06/07/19 06/23/19 Baclofen 10 mg PO BID 06/07/19 06/23/19 Benzonatate 200 mg PO Q8H PRN 06/07/19 06/23/19 Divalproex Sodium 750 mg PO BID 06/07/19 06/23/19 Hydrocodone/Acetaminophen 1 tab PO Q8H PRN 06/07/19 06/23/19 [Hydrocodone-Acetamin 5-325 mg] LORazepam [Lorazepam] 0.5 mg PO BID PRN 06/07/19 06/23/19 Mirtazapine [Remeron] 45 mg PO QPM 06/07/19 06/23/19 Naproxen 375 mg PO BID 06/07/19 06/23/19 OLANZapine [Olanzapine] 20 mg PO QPM 06/07/19 06/23/19 Ondansetron [Ondansetron Odt] 4 mg PO Q6H PRN 06/07/19 06/23/19 Pantoprazole Sodium [Protonix] 40 mg PO QDAC 06/07/19 06/23/19 Prazosin HCl 1 mg PO BID 06/07/19 06/23/19 Prazosin HCl 1 mg PO DAILY PRN 06/07/19 06/23/19 SUMAtriptan [Sumatriptan] 20 mg ABE DAILY PRN 06/07/19 06/23/19 clonazePAM [Clonazepam] 1 mg PO QPM 06/07/19 06/23/19 - Allergies Allergies/Adverse Reactions: Allergies Allergy/AdvReac Type Severity Reaction Status Date / Time azithromycin Allergy Severe Hives Verified 06/22/19 10:04 haloperidol Allergy Severe Anaphylaxis Verified 06/22/19 10:04 Penicillins Allergy Severe Anaphylaxis Verified 06/22/19 10:04 amoxicillin [Amoxicillin] Allergy Intermediate Rash Verified 06/22/19 10:04 grapefruit Allergy Intermediate Rash Verified 06/22/19 10:04 iodine Allergy Intermediate Rash Verified 06/22/19 10:04 Sulfa (Sulfonamide Allergy Intermediate Rash Verified 06/22/19 10:04 Antibiotics) bee venom protein (honey bee) Allergy Anaphylaxis Verified 06/22/19 10:04 shellfish derived Allergy Unknown Verified 06/22/19 10:04 haloperidol lactate * AdvReac Rash Verified 06/22/19 10:04 [From Haldol] - Social History Does the pt smoke?: Yes Smoking Status: Current every day smoker Does the pt drink ETOH?: No Does the pt have substance abuse?: No - Immunizations Immunizations are current?: No Immunizations: TDAP >10years/unknown - POLST Patient has POLST: No POLST Status: Full Code PD ED PE NORMAL - Vitals Vital signs reviewed: Yes - General General: Alert and oriented X 3, No acute distress - HEENT HEENT: PERRL, EOMI - Neck Neck: Supple, no meningeal sign, No bony TTP, Other (No sams or bruits on the neck) - Cardiac Cardiac: RRR, No murmur - Respiratory Respiratory: No respiratory distress, Clear bilaterally - Abdomen Abdomen: Soft, Non tender - Derm Derm: Normal color, Warm and dry, Other (Lots of well-healed lacerations on the thighs/abd wall) - Extremities Extremities: No edema, No calf tenderness / cord - Neuro Neuro: Alert and oriented X 3, No motor deficit, No sensory deficit, Normal speech Results - Vitals Vitals: Vital Signs - 24 hr 06/23/19 06/24/19 06/24/19 16:42 11:34 12:48 Temperature 37.0 C 36.6 C Heart Rate 88 68 81 Respiratory 16 18 18 Rate Blood Pressure 119/102 H 132/82 H 140/72 H O2 Saturation 97 96 95 06/24/19 14:38 Temperature 36.7 C Heart Rate 82 Respiratory 17 Rate Blood Pressure 168/70 H O2 Saturation 99 Oxygen O2 Source [With Activity] Room air O2 Source [Without Activity] Room air O2 Source Room air - Labs Labs: Laboratory Tests 06/23/19 06/23/19 06/23/19 16:52 17:00 17:00 WBC 11.8 H RBC 4.34 Hgb 12.0 Hct 38.1 MCV 87.8 MCH 27.6 MCHC 31.5 L RDW 19.3 H Plt Count 277 MPV 11.1 H Neut # (Auto) 5.8 Lymph # (Auto) 4.0 H [place] # (Auto) 1.5 H Eos # (Auto) 0.3 Baso # (Auto) 0.1 Absolute Nucleated RBC 0.00 Nucleated RBC % 0.0 Sodium 142 Potassium 4.5 Chloride 106 Carbon Dioxide 24 Anion Gap 12.0 BUN 15 Creatinine 0.8 Estimated GFR (MDRD) 74 L Glucose 107 H Calcium 8.9 Total Bilirubin 0.4 AST 16 ALT 16 Alkaline Phosphatase 51 Total Protein 6.6 L Albumin 3.6 Globulin 3.0 Albumin/Globulin Ratio 1.2 Lipase 19 L TSH Last Dose Date Last Dose Time Salicylates < 6.0 Urine Opiates Screen NEGATIVE Ur Oxycodone Screen NEGATIVE Urine Methadone Screen NEGATIVE Ur Propoxyphene Screen NEGATIVE Acetaminophen < 10 L Ur Barbiturates Screen NEGATIVE Valproic Acid Ur Tricyclics Screen NEGATIVE Ur Phencyclidine Scrn NEGATIVE Ur Amphetamine Screen NEGATIVE U Methamphetamines Scrn NEGATIVE U Benzodiazepines Scrn POSITIVE H Urine Cocaine Screen NEGATIVE U Cannabinoids Screen NEGATIVE Ethyl Alcohol < 5.0 06/23/19 06/23/19 17:00 17:00 WBC RBC Hgb Hct MCV MCH MCHC RDW Plt Count MPV Neut # (Auto) Lymph # (Auto) [place] # (Auto) Eos # (Auto) Baso # (Auto) Absolute Nucleated RBC Nucleated RBC % Sodium Potassium Chloride Carbon Dioxide Anion Gap BUN Creatinine Estimated GFR (MDRD) Glucose Calcium Total Bilirubin AST ALT Alkaline Phosphatase Total Protein Albumin Globulin Albumin/Globulin Ratio Lipase TSH 4.38 Last Dose Date UNKNOWN Last Dose Time UNKNOWN Salicylates Urine Opiates Screen Ur Oxycodone Screen Urine Methadone Screen Ur Propoxyphene Screen Acetaminophen Ur Barbiturates Screen Valproic Acid 51.8 Ur Tricyclics Screen Ur Phencyclidine Scrn Ur Amphetamine Screen U Methamphetamines Scrn U Benzodiazepines Scrn Urine Cocaine Screen U Cannabinoids Screen Ethyl Alcohol PD MEDICAL DECISION MAKING - ED course ED course: Seen by tele-psychiatry, inpatient treatment recommended. Subsequently after a delay, the next day she was accepted it to [facility], cobras were completed. She is stable for transport for psychiatric care. Departure - Departure Disposition: 65 Psych Hosp/Unit DC/Xfer Clinical Impression: Suicide attempt, Suicidal ideation Condition: Stable Discharge Date/Time: 06/24/19 15:32
[2019-06-23 16:58] LABS: MUDS CUTOFF CONCENTRATIONS CUTOFF CONC BELOW:
[2019-06-23 17:10] LABS: BASOPHILS # (AUTO) 0.1 10^3/uL (0.0-0.1); BASOPHILS % (AUTO) 0.8 %; EOSINOPHILS # (AUTO) 0.3 10^3/uL (0.0-0.7); EOSINOPHILS % (AUTO) 2.4 %; MEAN CORPUSCULAR HEMOGLOBIN 27.6 pg (27.0-31.0); MEAN CORPUSCULAR HGB CONC 31.5 g/dL (32.0-36.0); MEAN CORPUSCULAR VOLUME 87.8 fL (81.0-99.0); MEAN PLATELET VOLUME 11.1 fL (7.9-10.8); MONOCYTES # (AUTO) 1.5 10^3/uL (0.0-1.0); MONOCYTES % (AUTO) 12.7 %; NEUTROPHILS # (AUTO) 5.8 10^3/uL (1.5-6.6); NEUTROPHILS % (AUTO) 49.3 %; PLT - PLATELET COUNT 277 10^3/uL (130-450); RED BLOOD COUNT 4.34 10^6/uL (4.20-5.40); RED CELL DISTRIBUTION WIDTH 19.3 % (12.0-15.0); WHITE BLOOD COUNT 11.8 x10^3/uL (4.8-10.8)
[2019-06-23 17:21] LABS: AMPHETAMINE SCREEN,URINE NEGATIVE (NEGATIVE); BENZODIAZEPINES SCREEN, URINE POSITIVE (NEGATIVE); COCAINE SCREEN URINE NEGATIVE (NEGATIVE); METHADONE SCREEN, URINE NEGATIVE (NEGATIVE); METHAMPHETAMINES SCREEN, URINE NEGATIVE (NEGATIVE); OPIATE SCREEN, URINE NEGATIVE (NEGATIVE); OXYCODONE SCREEN, URINE NEGATIVE (NEGATIVE); PROPOXYPHENE SCREEN, URINE NEGATIVE (NEGATIVE); TRICYCLIC ANTIDEPRESSANT,URINE NEGATIVE (NEGATIVE)
[2019-06-23] MEDS ORDERED: diphenhydrAMINE INJ 50 MG/ML VIAL IVP STA (17:21)
[2019-06-23] MEDS ORDERED: METOCLOPRAMIDE 10 MG/2 ML VIAL IVP STA (17:21)
[2019-06-23 17:26] LABS: ACETAMINOPHEN < 10 ug/mL (10-30); ALBUMIN 3.6 g/dL (3.2-5.5); ALBUMIN/GLOBULIN RATIO 1.2 (1.0-2.2); ALKALINE PHOSPHATASE 51 IU/L (42-121); ALT ALANINE AMINOTRANSFERASE 16 IU/L (10-60); AST ASPARTATE AMINOTRANSFERASE 16 IU/L (10-42); BILIRUBIN,TOTAL 0.4 mg/dL (0.2-1.0); BUN - BLOOD UREA NITROGEN 15 mg/dL (6-20); CALCIUM 8.9 mg/dL (8.5-10.3); CARBON DIOXIDE - CO2 24 mmol/L (21-32); CHLORIDE 106 mmol/L (101-111); CREATININE 0.8 mg/dL (0.4-1.0); GFR - MDRD 74 (>89); GLUCOSE 107 mg/dL (70-100); LIPASE 19 U/L (22-51); SALICYLATE < 6.0 mg/dL; SODIUM 142 mmol/L (135-145); TOTAL PROTEIN 6.6 g/dL (6.7-8.2)
[2019-06-23 17:30] LABS: VALPROIC ACID (DEPAKOTE) 51.8 ug/mL
[2019-06-23] MEDS ORDERED: KETOROLAC 30 MG/ML VIAL IVP STA (18:06)
[2019-06-23] MEDS ORDERED: OLANZapine ODT 5 MG TABLET TL STA (18:08)
[2019-06-23] MEDS ORDERED: BACLOFEN 10 MG TABLET PO STA (18:08)
[2019-06-23] MEDS ORDERED: VALPROATE 250 MG/5 ML SOLUTION UDC PO STA (18:08)
[2019-06-23] MEDS ORDERED: traZODone 50 MG TABLET PO STA (18:08)
[2019-06-23] MEDS ORDERED: DULoxetine 30 MG CAPSULE PO STA (18:08)
[2019-06-23] MEDS ORDERED: MIRTAZAPINE 15 MG TABLET PO STA (18:08)
[2019-06-23] MEDS ORDERED: PROMETHAZINE INJ 25 MG in SODIUM CHLORIDE 0.9% 50 ML IV STA (19:13)
[2019-06-23] MEDS ORDERED: SUMAtriptan 6 MG/0.5 ML VIAL SUBQ STA (20:47)
[2019-06-23] MEDS ORDERED: ACETAMINOPHEN 325 MG TABLET PO STA (20:48)
[2019-06-24] MEDS ORDERED: LORazepam 1 MG TABLET PO STA (00:12)
--- NOTE | 2019-06-24 01:03 | TELEPSYCH PHYS NOTE ---
Telepsych Note - CHIEF COMPLAINT/HX OF PRESENT ILLNESS Cheif Complaint and History of Present Illness: Name: Kami Plaza : 63 Date: 06/24/19 Time: 2:10am Location of patient: [facility] ED Location of doctor: [facility] This evaluation was conducted via telepsychiatry with the assistance of onsite staff Chief Complaint: depression/ SI History of Present Illness: Pt seen by televideo with help from the onsite staff. Pt is a 54 yo female with hx of Schizoaffective Disorder, TBI with resultant personality changes. 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 This is the pts 4th ED visit in the past 3 days due to various complaints. Per staff, she has a pattern of multiple ED visits then suicidality and serious suicide attempts including requiring intubation and ICU admission. Pt returns to the ED, referred by her BLANE due to SI, plan and gesture. Pt reportedly tied an adolfo bandage around her neck with thoughts of ending her life. Chart reviewed and appreciated. Pt seen and evaluated. Pt states she is very depressed and feels suicidal. States she has been feeling more depressed for the past 2 weeks and increasingly suicidal for the past 3 days. Notes a potential plan to either hang or choke herself. States she has also been cutting herself on her arms and thighs. Pt reports no specific triggers and states she has been compliant with her outpt treatment and medications. Pt notes she has been experiencing CAHs of demons telling her to kill herself. States the demons scare her and force her to do bath things. States she is scared of the demons and herself. States she is pretty certain that if she left the hospital she would again try to kill herself. On ROS, pt notes AH of demons. Denies VH. She is paranoid and delusional. Pt is presenting with mood and psychotic decompensation. She has multiple risk factors and poor coping. She presents as a danger to herself requiring acute inpt psychiatric admission for safety, stabilization and treatment. Collateral: Discussed case with staff and chart review. No family available at the time of the evaluation. SI/ Self harm: Notes current SI. Hx of multiple suicide attempts, self injurious behaviors. Including requiring intubation and ICU admission. HI/Violence: denies Trauma history: TBI Access to weapons: none reported Legal: not reported Psychiatric History/Treatment History: previous admissions. Reports compliance with her outpt treatment. Drug/Alcohol History: denies Medical History: see chart Medications & Freq: see chart Allergies: see chart Sleep: unclear Family Psych History/History of suicide unknown Social History: lives with parents. Stressors: see HPI Strengths/supports: limited Appearance and attire: hospital attire Attitude and behavior: cooperative Affect and mood: depressed scared / reactive Association and thought processes: limited Thought content: paranoid and delusional. + SI with plan. Denies HI. Perception: + AHs, denies VHs. Sensorium, memory, and orientation: grossly oriented Intellectual functioning: unable to assess Insight and judgment: impaired. - SI/HI/SELF HARM SI/HI/SELF HARM (CURRENT OR HISTORY OF):: SI - PSYCHIATRIC HX/TREATMENT HX Psychiatric: Depression, Bipolar disorder, Schizophrenia, Post traumatic stress disorder, Other - MEDICAL HX Does the pt have a hx of MRSA?: No Neurological History: CVA, Migraines, Seizure disorder Eyes, Ears, Nose, Throat: None Cardiovascular: Angina, Other Respiratory: COPD, Pneumonia Skin: None Endocrine/Autoimmune: Type 2 diabetes Gastrointestinal: GERD, Hiatal hernia Urinary: None Musculoskeletal: None Blood Disorders: None - SURGICAL HX General: Bowel surgery Orthopedic: Other Gynecologic: 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 - HOME MEDICATIONS Home Meds (as last confirmed): Patient History Medication Instructions Recorded Confirmed Atorvastatin [Lipitor] 10 mg PO QPM 03/07/19 06/23/19 OLANZapine [Olanzapine] 10 mg PO DAILY 03/07/19 06/23/19 Sitagliptin Phosphate [Januvia] 50 mg PO DAILY 03/07/19 06/23/19 traZODone [Desyrel] 200 mg PO QPM 03/07/19 06/23/19 DULoxetine [Cymbalta] 30 mg PO BID 06/01/19 06/23/19 clonazePAM [Clonazepam] 0.5 mg PO 0800,1200 06/01/19 06/23/19 Aspirin [Aspirin EC] 81 mg PO DAILY 06/07/19 06/23/19 Baclofen 10 mg PO BID 06/07/19 06/23/19 Benzonatate 200 mg PO Q8H PRN 06/07/19 06/23/19 Divalproex Sodium 750 mg PO BID 06/07/19 06/23/19 Hydrocodone/Acetaminophen 1 tab PO Q8H PRN 06/07/19 06/23/19 [Hydrocodone-Acetamin 5-325 mg] LORazepam [Lorazepam] 0.5 mg PO BID PRN 06/07/19 06/23/19 Mirtazapine [Remeron] 45 mg PO QPM 06/07/19 06/23/19 Naproxen 375 mg PO BID 06/07/19 06/23/19 OLANZapine [Olanzapine] 20 mg PO QPM 06/07/19 06/23/19 Ondansetron [Ondansetron Odt] 4 mg PO Q6H PRN 06/07/19 06/23/19 Pantoprazole Sodium [Protonix] 40 mg PO QDAC 06/07/19 06/23/19 Prazosin HCl 1 mg PO BID 06/07/19 06/23/19 Prazosin HCl 1 mg PO DAILY PRN 06/07/19 06/23/19 SUMAtriptan [Sumatriptan] 20 mg ABE DAILY PRN 06/07/19 06/23/19 clonazePAM [Clonazepam] 1 mg PO QPM 06/07/19 06/23/19 - ALLERGIES Allergies (as last confirmed): Allergies Allergy/AdvReac Type Severity Reaction Status Date / Time azithromycin Allergy Severe Hives Verified 06/22/19 10:04 haloperidol Allergy Severe Anaphylaxis Verified 06/22/19 10:04 Penicillins Allergy Severe Anaphylaxis Verified 06/22/19 10:04 amoxicillin [Amoxicillin] Allergy Intermediate Rash Verified 06/22/19 10:04 grapefruit Allergy Intermediate Rash Verified 06/22/19 10:04 iodine Allergy Intermediate Rash Verified 06/22/19 10:04 Sulfa (Sulfonamide Allergy Intermediate Rash Verified 06/22/19 10:04 Antibiotics) bee venom protein (honey bee) Allergy Anaphylaxis Verified 06/22/19 10:04 shellfish derived Allergy Unknown Verified 06/22/19 10:04 haloperidol lactate * AdvReac Rash Verified 06/22/19 10:04 [From Haldol] - TREATMENT/PHARMACOLOGICAL RECOMMENDATION Treatment - Pharmacological - Therapy Recommendations: Diagnosis: Other psychotic disorder, Major Neurocognitive Disorder. Assessment/Risk Assessment: Pt is presenting with mood and psychotic decompensation. She has multiple risk factors and poor coping. She presents as a danger to herself requiring acute inpt psychiatric admission for safety, stabilization and treatment. Treatment Recommendations: Pt requires acute inpt psychiatric admission For safety, stabilization and treatment Pt is voluntary for inpt treatment. Please confirm and continue the pts home medication regimen while awaiting placement. - TIME SPENT & PROVIDER LOCATION Telepsych consultation conducted via videoconferencing: Yes List names and roles of persons who participated in consult: carmen plaza Telepsych Provider Location: [place] Time Telepsych consult began: 02:10 Time Telepsych consult completed: 02:22
--- NOTE | 2019-06-24 08:37 | ED Physician Documentation ---
ED Addendum - Addendum Addendum: Patient signed out to me. This is a 54-year-old female who is well-known to me, she has a history of a traumatic brain injury and migraines, she presented with suicidal ideation and wrapping an Anton bandage around her neck. She is currently pending review for possible transfer to [facility]. During my shift patient had no acute events, was well-appearing. [facility] declined patient but [facility] accepted. She was pending transfer to [facility] at the time of sign-out. Dr. Granda re-assumed care. 06/24/19 08:36 06/26/19 14:00
[2019-06-24] MEDS ORDERED: ACETAMINOPHEN 500 MG TABLET PO PRN (11:45)
[2019-06-24] MEDS ORDERED: BENZONATATE 100 MG CAPSULE PO PRN (11:50)
[2019-06-24] MEDS ORDERED: clonazePAM 0.5 MG TABLET PO PRN (11:51)
[2019-06-24] MEDS ORDERED: HYDROcod/ACETAM 5/325 MG TABLET PO PRN (11:59)
[2019-06-24] MEDS ORDERED: LORazepam 0.5 MG TABLET PO PRN (12:00)
[2019-06-24] MEDS ORDERED: clonazePAM 0.5 MG TABLET PO SCH (12:00)
[2019-06-24] MEDS ORDERED: traZODone 50 MG TABLET PO PRN (12:04)
[2019-06-24] MEDS ORDERED: DIPHENOX/ATROPINE 2.5/0.025 MG TABLET PO PRN (12:05)
[2019-06-24] MEDS ORDERED: ONDANSETRON ODT 4 MG TABLET TL PRN (12:05)
[2019-06-24] MEDS ORDERED: PRAZOSIN 1 MG CAPSULE PO PRN (12:09)
[2019-06-24] MEDS ORDERED: ALBUTEROL INH PRN (12:23)
[2019-06-24] MEDS ORDERED: DICLOFENAC 1% TOP PRN (12:25)
[2019-06-24] MEDS ORDERED: RIZATRIPTAN 10 MG PO PRN (12:27)
[2019-06-24] MEDS ORDERED: PANTOPRAZOLE 40 MG TABLET PO SCH (12:30)
[2019-06-24] MEDS ORDERED: PRAZOSIN 1 MG CAPSULE PO SCH ×2 (12:30→21:00)
[2019-06-24] MEDS ORDERED: OLANZapine ODT 5 MG TABLET TL SCH ×2 (12:30→21:00)
[2019-06-24] MEDS ORDERED: ASPIRIN EC 81 MG TABLET PO SCH (12:30)
[2019-06-24] MEDS ORDERED: NICOTINE 14 MG PATCH TOP SCH (12:30)
[2019-06-24] MEDS ORDERED: DIVALPROEX DR 250 MG TABLET PO SCH (12:30)
[2019-06-24] MEDS ORDERED: DULoxetine 30 MG CAPSULE PO SCH (12:30)
[2019-06-24] MEDS ORDERED: BACLOFEN 10 MG TABLET PO SCH (12:30)
[2019-06-24 14:39] VITALS: BP 168/70
[2019-06-24] MEDS ORDERED: MIRTAZAPINE 15 MG TABLET PO SCH (21:00)
[2019-06-24] MEDS ORDERED: ATORVASTATIN 10 MG TABLET PO SCH (21:00)
[2019-06-24] MEDS ORDERED: NAPROXEN 375 MG PO SCH (21:00)
[2019-06-24] MEDS ORDERED: traZODone 50 MG TABLET PO SCH (21:00)
[2019-06-25] MEDS ORDERED: [UNRECOGNIZED DRUG - OTHER] INH SCH (09:00)
[2019-07-16] MEDS ORDERED: NICOTINE 7 MG PATCH TOP SCH (09:00)
== END 2019-06-24 15:32 ==
LOC: EDUNIT# → ED 16:41
DX: F32.9 Major depressive disorder, single episode, unspecified (principal); R45.851 Suicidal ideations; F25.9 Schizoaffective disorder, unspecified; Z87.820 Personal history of traumatic brain injury; F01.50 Vascular dementia, unspecified severity, without behavioral disturbance, psychotic disturbance, mood disturbance, and anxiety; E11.9 Type 2 diabetes mellitus without complications; Z79.84 Long term (current) use of oral hypoglycemic drugs; F17.200 Nicotine dependence, unspecified, uncomplicated; Z79.82 Long term (current) use of aspirin
CPT/HCPCS: 36415; 80053; 80164; 83690; 84443; 85025; 96365; 96372; 96375; 99285; A9270; J1200; J2765; J3490; J7040; J8499; 80306; 80307; 80320; 80329

== ENCOUNTER 2019-07-04 15:18 | Outpatient (CLI) | payer MEDICARE, MEDICAID | END 2019-07-04 15:19 | disposition critical access hospital (66) | LOC: EMS 15:18 | PROVIDERS: ATTEND Surgery | DX: R06.00 Dyspnea, unspecified (principal) | CPT/HCPCS: A0425; A0429 ==

== ENCOUNTER 2019-07-04 15:40 | Emergency (ER) | payer MEDICARE, MEDICAID ==
[2019-07-04] MEDS ORDERED: KETOROLAC 60 MG/2 ML VIAL IM STA (16:05)
[2019-07-04] MEDS ORDERED: DEXAMETHASONE 10 MG/ML VIAL PO STA (16:06)
[2019-07-04] MEDS ORDERED: CHERRY SYRUP 10 ML UDC PO ONE (16:06)
[2019-07-04] MEDS ORDERED: IPRATROPIUM/ALBUTEROL 3 ML NEB INH STA (16:06)
[2019-07-04] MEDS ORDERED: ONDANSETRON ODT 4 MG TABLET TL STA (16:06)
--- NOTE | 2019-07-04 16:14 | ED Physician Documentation ---
History of Present Illness - Stated complaint Stated Complaint: SOA - Chief complaint Chief Complaint: Resp - History obtained from History obtained from: Patient, EMS - History of Present Illness Timing: Chronic Pain level max: 5 Pain level now: 5 - Additonal information Additional information: 54-year-old female presents to the emergency department stating that she feels mildly short of breath today. She states she also has some nausea. Has chronic back pain. States she had a migraine headache earlier and is afraid that it "may come back". No fevers. Mild cough. No change from baseline. Nothing makes it better or worse. 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 : None HEENT: None Psych: Depression, Bipolar disorder, Schizophrenia, Post traumatic stress disorder, Other Musculoskeletal: None Derm: None - Past Surgical History Past Surgical History: Yes General: Bowel surgery Ortho: Other /[employer]ITION [employer]SEM[employer]Y [employer] LABORER: 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 HEENT: Cataracts - Present Medications Home Medications: Ambulatory Orders Medication Instructions Recorded Confirmed Atorvastatin [Lipitor] 10 mg PO QPM 03/07/19 06/23/19 OLANZapine [Olanzapine] 10 mg PO DAILY 03/07/19 06/23/19 Sitagliptin Phosphate [Januvia] 50 mg PO DAILY 03/07/19 06/23/19 traZODone [Desyrel] 200 mg PO QPM 03/07/19 06/23/19 SUMAtriptan succinate [Sumatriptan 6 mg SQ DAILY PRN #2 units 05/15/19 06/23/19 Succinate] DULoxetine [Cymbalta] 30 mg PO BID 06/01/19 06/23/19 clonazePAM [Clonazepam] 0.5 mg PO 0800,1200 06/01/19 06/23/19 Aspirin [Aspirin EC] 81 mg PO DAILY 06/07/19 06/23/19 Baclofen 10 mg PO BID 06/07/19 06/23/19 Benzonatate 200 mg PO Q8H PRN 06/07/19 06/23/19 Divalproex Sodium 750 mg PO BID 06/07/19 06/23/19 Hydrocodone/Acetaminophen 1 tab PO Q8H PRN 06/07/19 06/23/19 [Hydrocodone-Acetamin 5-325 mg] LORazepam [Lorazepam] 0.5 mg PO BID PRN 06/07/19 06/23/19 Mirtazapine [Remeron] 45 mg PO QPM 06/07/19 06/23/19 Naproxen 375 mg PO BID 06/07/19 06/23/19 OLANZapine [Olanzapine] 20 mg PO QPM 06/07/19 06/23/19 Ondansetron [Ondansetron Odt] 4 mg PO Q6H PRN 06/07/19 06/23/19 Pantoprazole Sodium [Protonix] 40 mg PO QDAC 06/07/19 06/23/19 Prazosin HCl 1 mg PO BID 06/07/19 06/23/19 Prazosin HCl 1 mg PO DAILY PRN 06/07/19 06/23/19 SUMAtriptan [Sumatriptan] 20 mg ABE DAILY PRN 06/07/19 06/23/19 clonazePAM [Clonazepam] 1 mg PO QPM 06/07/19 06/23/19 - Allergies Allergies/Adverse Reactions: Allergies Allergy/AdvReac Type Severity Reaction Status Date / Time azithromycin Allergy Severe Hives Verified 06/22/19 10:04 haloperidol Allergy Severe Anaphylaxis Verified 06/22/19 10:04 Penicillins Allergy Severe Anaphylaxis Verified 06/22/19 10:04 amoxicillin [Amoxicillin] Allergy Intermediate Rash Verified 06/22/19 10:04 grapefruit Allergy Intermediate Rash Verified 06/22/19 10:04 iodine Allergy Intermediate Rash Verified 06/22/19 10:04 Sulfa (Sulfonamide Allergy Intermediate Rash Verified 06/22/19 10:04 Antibiotics) bee venom protein (honey bee) Allergy Anaphylaxis Verified 06/22/19 10:04 shellfish derived Allergy Unknown Verified 06/22/19 10:04 haloperidol lactate * AdvReac Rash Verified 06/22/19 10:04 [From Haldol] - Social History Does the pt smoke?: Yes Smoking Status: Current every day smoker Does the pt drink ETOH?: No Does the pt have substance abuse?: No - Immunizations Immunizations are current?: No Immunizations: TDAP >10years/unknown - POLST Patient has POLST: No POLST Status: Full Code PD ED PE NORMAL - Vitals Vital signs reviewed: Yes - General General: Alert and oriented X 3, Well developed/nourished - HEENT HEENT: PERRL, Ears normal, Moist mucous membranes, Pharynx benign - Neck Neck: Supple, no meningeal sign - Cardiac Cardiac: RRR, No murmur - Respiratory Respiratory: No respiratory distress, Other (Mild wheezing bilaterally) - Abdomen Abdomen: Soft, Non tender, Non distended - Derm Derm: Warm and dry - Extremities Extremities: No edema, No calf tenderness / cord - Neuro Neuro: Alert and oriented X 3 - Psych Psych: Normal mood, Normal affect Results - Vitals Vitals: Vital Signs - 24 hr 07/04/19 07/04/19 07/04/19 15:54 16:21 16:59 Temperature 37 C Heart Rate 92 87 84 Respiratory 18 20 18 Rate Blood Pressure 131/83 H 138/70 H O2 Saturation 98 98 Oxygen O2 Source [With Activity] Room air O2 Source [Without Activity] Room air O2 Source Room air PD MEDICAL DECISION MAKING - ED course Complexity details: reviewed old records, re-evaluated patient, considered differential, d/w patient ED course: 54-year-old female presents to the emergency department with chronic back pain, chronic headaches, chronic COPD. Feels better after Toradol and breathing treatment. No emergency medical condition at this time. Patient counseled regarding signs and symptoms for which I believe and urgent re-evaluation would be necessary. Patient with good understanding of and agreement to plan and is comfortable going home at this time This document was made in part using voice recognition software. While efforts are made to proofread this document, sound alike and grammatical errors may occur. Departure - Departure Disposition: 01 Home, Self Care Clinical Impression: Chronic headache Qualifiers: Headache type: unspecified Intractability: not intractable Qualified Code(s): R51 - Headache COPD (chronic obstructive pulmonary disease) Qualifiers: COPD type: unspecified COPD Qualified Code(s): J44.9 - Chronic obstructive pulmonary disease, unspecified Condition: Good Instructions: ED Reactive Airway Disease Follow-Up: Alethea Bolanos ARNP [Primary Care Provider] - Within 1 week Comments: Return if you worsen. Follow-up with your doctor for further care. Discharge Date/Time: 07/04/19 17:00
[2019-07-04 16:59] VITALS: BP 138/70
== END 2019-07-04 17:00 | disposition home or self-care (01) ==
LOC: EDBD → ED 15:40
DX: R51 Headache (principal); J44.9 Chronic obstructive pulmonary disease, unspecified; E11.9 Type 2 diabetes mellitus without complications; Z79.84 Long term (current) use of oral hypoglycemic drugs; F17.200 Nicotine dependence, unspecified, uncomplicated
CPT/HCPCS: 94640; 94664; 96372; 99283; 99284; A9270; Q0162

== ENCOUNTER 2019-07-08 12:49 | Outpatient (CLI) | payer MEDICARE, MEDICAID | END 2019-07-08 12:50 | disposition critical access hospital (66) | LOC: EMS 12:49 | PROVIDERS: ATTEND Surgery | DX: R45.851 Suicidal ideations (principal) | CPT/HCPCS: A0425; A0429 ==

== ENCOUNTER 2019-07-08 13:08 | Emergency (ER) | payer MEDICARE, MEDICAID ==
--- NOTE | 2019-07-08 13:20 | ED Physician Documentation ---
History of Present Illness - Stated complaint Stated Complaint: MHE - Additonal information Additional information: This is a 54-year-old female who is well-known to me with tree of bipolar, schizophrenia, diabetes, who presents with thoughts of self-harm, and ingesting IcyHot. Patient [facility], and She thinks that they released her to soon. She has had some auditory hallucinations saying that she is worthless and that should harm herself. She is a plan to ingest medications, this morning she states that she ingested may be an 8 the tube to quarter tube of IcyHot, and afterwards she had some vomiting and she is feeling poorly. She did not ingest anything else. She also has plans to stab herself, reportedly she may try to stab herself with a pen but this did not go through her clothes. 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 : None HEENT: None Psych: Depression, Bipolar disorder, Schizophrenia, Post traumatic stress disorder, Other Musculoskeletal: None Derm: None - Past Surgical History Past Surgical History: Yes General: Bowel surgery 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: 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 HEENT: Cataracts - Present Medications Home Medications: Ambulatory Orders Medication Instructions Recorded Confirmed Atorvastatin [Lipitor] 10 mg PO QPM 03/07/19 07/08/19 OLANZapine [Olanzapine] 10 mg PO DAILY 03/07/19 07/08/19 Sitagliptin Phosphate [Januvia] 50 mg PO DAILY 03/07/19 07/08/19 traZODone [Desyrel] 200 mg PO QPM 03/07/19 07/08/19 SUMAtriptan succinate [Sumatriptan 6 mg SQ DAILY PRN #2 units 05/15/19 07/08/19 Succinate] DULoxetine [Cymbalta] 30 mg PO BID 06/01/19 07/08/19 clonazePAM [Clonazepam] 0.5 mg PO 0800,1200 09/22/19 10/29/19 Aspirin [Aspirin EC] 81 mg PO DAILY 06/07/19 07/08/19 Baclofen 10 mg PO BID 06/07/19 07/08/19 Benzonatate 200 mg PO Q8H PRN 06/07/19 07/08/19 Divalproex Sodium 750 mg PO BID 06/07/19 07/08/19 Hydrocodone/Acetaminophen 1 tab PO Q8H PRN 06/07/19 07/08/19 [Hydrocodone-Acetamin 5-325 mg] LORazepam [Lorazepam] 0.5 mg PO BID PRN 06/07/19 07/08/19 Mirtazapine [Remeron] 45 mg PO QPM 06/07/19 07/08/19 Naproxen 375 mg PO BID 06/07/19 07/08/19 OLANZapine [Olanzapine] 20 mg PO QPM 06/07/19 07/08/19 Ondansetron [Ondansetron Odt] 4 mg PO Q6H PRN 06/07/19 07/08/19 Pantoprazole Sodium [Protonix] 40 mg PO QDAC 06/07/19 07/08/19 Prazosin HCl 1 mg PO BID 06/07/19 07/08/19 Prazosin HCl 1 mg PO DAILY PRN 06/07/19 07/08/19 SUMAtriptan [Sumatriptan] 20 mg ABE DAILY PRN 06/07/19 07/08/19 clonazePAM [Clonazepam] 1 mg PO QPM 06/07/19 07/08/19 Albuterol Sulf [Ventolin Hfa 2 puffs INH PRN PRN 07/08/19 07/08/19 Inhaler] Naproxen Sodium [Naprelan] 375 mg PO DAILY 07/08/19 07/08/19 Nicotine 21 mg Patch [Nicoderm] 1 patch TOP Q24H 07/08/19 07/08/19 Perphenazine 8 mg PO DAILY 07/08/19 07/08/19 Perphenazine 16 mg PO DAILY PM 07/08/19 07/08/19 Umeclidinium [place] [Incruse 1 puffs INH DAILY 07/08/19 07/08/19 Ellipta] metFORMIN [Glucophage] 500 mg PO BID 07/08/19 07/08/19 - Allergies Allergies/Adverse Reactions: Allergies Allergy/AdvReac Type Severity Reaction Status Date / Time azithromycin Allergy Severe Hives Verified 07/08/19 13:14 haloperidol Allergy Severe Anaphylaxis Verified 07/08/19 13:14 Penicillins Allergy Severe Anaphylaxis Verified 07/08/19 13:14 amoxicillin [Amoxicillin] Allergy Intermediate Rash Verified 07/08/19 13:14 grapefruit Allergy Intermediate Rash Verified 07/08/19 13:14 iodine Allergy Intermediate Rash Verified 07/08/19 13:14 Sulfa (Sulfonamide Allergy Intermediate Rash Verified 07/08/19 13:14 Antibiotics) bee venom protein (honey bee) Allergy Anaphylaxis Verified 07/08/19 13:14 shellfish derived Allergy Unknown Verified 07/08/19 13:14 haloperidol lactate * AdvReac Rash Verified 07/08/19 13:14 [From Haldol] - Social History Does the pt smoke?: Yes Smoking Status: Current every day smoker Does the pt drink ETOH?: No Does the pt have substance abuse?: No - Immunizations Immunizations are current?: No Immunizations: TDAP >10years/unknown - POLST Patient has POLST: No POLST Status: Full Code PD ED PE NORMAL - Vitals Vital signs reviewed: Yes - General General: Alert and oriented X 3, No acute distress - HEENT HEENT: PERRL - Neck Neck: Supple, no meningeal sign - Cardiac Cardiac: RRR - Respiratory Respiratory: No respiratory distress, Clear bilaterally - Abdomen Abdomen: Normal bowel sounds, Soft, Non tender, Non distended - Derm Derm: Warm and dry - Extremities Extremities: No deformity - Neuro Neuro: Alert and oriented X 3 - Psych Psych: Normal mood, Other (Fairly upbeat and cooperative affect) Results - Vitals Vitals: Oxygen O2 Source [With Activity] Room air O2 Source [Without Activity] Room air O2 Source Room air - Labs Labs: Laboratory Tests 07/08/19 07/08/19 07/08/19 13:25 13:25 14:04 WBC 14.2 H RBC 4.46 Hgb 11.8 L Hct 39.1 MCV 87.7 MCH 26.5 L MCHC 30.2 L RDW 19.7 H Plt Count 368 MPV 10.5 Neut # (Auto) Not Reportable Lymph # (Auto) Not Reportable Wilkes # (Auto) Not Reportable Eos # (Auto) Not Reportable Baso # (Auto) Not Reportable Absolute Nucleated RBC Not Reportable Total Counted 100 Band Neuts % (Manual) 1 Abnorm Lymph % (Manual) 0 Nucleated RBC % Not Reportable Neutrophils # (Manual) 7.1 H Lymphocytes # (Manual) 5.7 H Monocytes # (Manual) 1.3 H Eosinophils # (Manual) 0.0 Basophils # (Manual) 0.1 Nucleated RBCs 2 Differential Comment MANUAL DIFFERENTIAL Platelet Estimate NORMAL (130-450,000) Platelet Morphology NORMAL APPEARANCE RBC Morph Micro Appear 1+ POLYCHROMASIA Sodium Potassium Chloride Carbon Dioxide Anion Gap BUN Creatinine Estimated GFR (MDRD) Glucose Calcium Total Bilirubin AST ALT Alkaline Phosphatase Total Protein Albumin Globulin Albumin/Globulin Ratio Lipase TSH Urine Color YELLOW Urine Clarity SL. CLOUDY Urine pH 5.5 Ur Specific Marcella >=1.030 H Urine Protein NEGATIVE Urine Glucose (UA) NEGATIVE Urine Ketones TRACE Urine Occult Blood NEGATIVE Urine Nitrite NEGATIVE Urine Bilirubin NEGATIVE Urine Urobilinogen 0.2 (NORMAL) Ur Leukocyte Esterase NEGATIVE Urine RBC None Seen Urine WBC 0-3 Ur Squamous Epith Cells MANY Squamous H Urine Bacteria Few Ur Microscopic Review INDICATED Urine Culture Comments NOT INDICATED Urine HCG, Qual NEGATIVE Salicylates Urine Opiates Screen NEGATIVE Ur Oxycodone Screen NEGATIVE Urine Methadone Screen NEGATIVE Ur Propoxyphene Screen NEGATIVE Acetaminophen Ur Barbiturates Screen NEGATIVE Ur Tricyclics Screen NEGATIVE Ur Phencyclidine Scrn NEGATIVE Ur Amphetamine Screen NEGATIVE U Methamphetamines Scrn NEGATIVE U Benzodiazepines Scrn POSITIVE H Urine Cocaine Screen NEGATIVE U Cannabinoids Screen NEGATIVE Ethyl Alcohol 07/08/19 07/08/19 07/08/19 14:04 14:04 17:41 WBC RBC Hgb Hct MCV MCH MCHC RDW Plt Count MPV Neut # (Auto) Lymph # (Auto) Wilkes # (Auto) Eos # (Auto) Baso # (Auto) Absolute Nucleated RBC Total Counted Band Neuts % (Manual) Abnorm Lymph % (Manual) Nucleated RBC % Neutrophils # (Manual) Lymphocytes # (Manual) Monocytes # (Manual) Eosinophils # (Manual) Basophils # (Manual) Nucleated RBCs Differential Comment Platelet Estimate Platelet Morphology RBC Morph Micro Appear Sodium 143 Potassium 4.5 Chloride 109 Carbon Dioxide 26 Anion Gap 8.0 BUN 15 Creatinine 0.7 Estimated GFR (MDRD) 87 L Glucose 97 Calcium 8.9 Total Bilirubin 0.5 AST 16 ALT 15 Alkaline Phosphatase 54 Total Protein 6.5 L Albumin 3.7 Globulin 2.8 Albumin/Globulin Ratio 1.3 Lipase 19 L TSH 4.67 Urine Color Urine Clarity Urine pH Ur Specific Marcella Urine Protein Urine Glucose (UA) Urine Ketones Urine Occult Blood Urine Nitrite Urine Bilirubin Urine Urobilinogen Ur Leukocyte Esterase Urine RBC Urine WBC Ur Squamous Epith Cells Urine Bacteria Ur Microscopic Review Urine Culture Comments Urine HCG, Qual Salicylates < 6.0 < 6.0 Urine Opiates Screen Ur Oxycodone Screen Urine Methadone Screen Ur Propoxyphene Screen Acetaminophen < 10 L < 10 L Ur Barbiturates Screen Ur Tricyclics Screen Ur Phencyclidine Scrn Ur Amphetamine Screen U Methamphetamines Scrn U Benzodiazepines Scrn Urine Cocaine Screen U Cannabinoids Screen Ethyl Alcohol < 5.0 PD MEDICAL DECISION MAKING - ED course Complexity details: considered differential (SI, salicylate toxicitiy, alcohol/substance use, depression, personality disorder) ED course: Pt presents with ingestion of icy hot and SI. She is well appearing without vomiting on exam. She was given zofran. Labs including serial salicylate levels recommended by poison control are unrevealing, she has a chronic leukocytosis, patient was medically cleared. Social work evaluated [place] [facility] [place] via B[place]. She understands the plan and is voluntary. Departure - Departure Disposition: 65 Psych Hosp/Unit DC/Xfer Clinical Impression: Suicidal ideation Condition: Good Discharge Date/Time: 07/08/19 22:42
[2019-07-08] MEDS ORDERED: ONDANSETRON ODT 4 MG TABLET TL STA (13:35)
[2019-07-08 13:59] LABS: MUDS CUTOFF CONCENTRATIONS CUTOFF CONC BELOW:
[2019-07-08 14:04] LABS: BILIRUBIN,URINE NEGATIVE (NEGATIVE); GLUCOSE, URINE (UA) NEGATIVE (NEGATIVE); KETONES,URINE (UA) TRACE mg/dL (NEGATIVE); LEUKOCYTE ESTERASE, URINE NEGATIVE (NEGATIVE); NITRITE,URINE NEGATIVE (NEGATIVE); OCCULT BLOOD,URINE NEGATIVE (NEGATIVE); PH,URINE 5.5 PH (5.0-7.5); PROTEIN,URINE NEGATIVE (NEGATIVE); UROBILINOGEN,URINE 0.2 (NORMAL) E.U./dL (NORMAL)
[2019-07-08 14:05] LABS: CLARITY,URINE SL. CLOUDY (CLEAR); HCG UR QUAL NEGATIVE
[2019-07-08 14:09] LABS: BACTERIA,URINE Few /HPF (None Seen); RBC,URINE None Seen /HPF (0-5); SQUAMOUS EPITHELIAL CELL,UR MANY Squamous (<= Few)
[2019-07-08 14:14] LABS: AMPHETAMINE SCREEN,URINE NEGATIVE (NEGATIVE); BENZODIAZEPINES SCREEN, URINE POSITIVE (NEGATIVE); COCAINE SCREEN URINE NEGATIVE (NEGATIVE); METHADONE SCREEN, URINE NEGATIVE (NEGATIVE); METHAMPHETAMINES SCREEN, URINE NEGATIVE (NEGATIVE); OPIATE SCREEN, URINE NEGATIVE (NEGATIVE); OXYCODONE SCREEN, URINE NEGATIVE (NEGATIVE); PROPOXYPHENE SCREEN, URINE NEGATIVE (NEGATIVE); TRICYCLIC ANTIDEPRESSANT,URINE NEGATIVE (NEGATIVE)
[2019-07-08 14:20] LABS: HGB - HEMOGLOBIN 11.8 g/dL (12.0-16.0); LYMPHOCYTES % (AUTO) 33.2 %; MEAN CORPUSCULAR HEMOGLOBIN 26.5 pg (27.0-31.0); MEAN CORPUSCULAR HGB CONC 30.2 g/dL (32.0-36.0); MEAN CORPUSCULAR VOLUME 87.7 fL (81.0-99.0); MEAN PLATELET VOLUME 10.5 fL (7.9-10.8); MONOCYTES % (AUTO) 15.2 %; NEUTROPHILS % (AUTO) 47.6 %; PLT - PLATELET COUNT 368 10^3/uL (130-450); RED BLOOD COUNT 4.46 10^6/uL (4.20-5.40); RED CELL DISTRIBUTION WIDTH 19.7 % (12.0-15.0); WHITE BLOOD COUNT 14.2 x10^3/uL (4.8-10.8)
[2019-07-08 14:23] LABS: ABNORMAL LYMPHS % (MANUAL) 0 %
[2019-07-08 14:34] LABS: ACETAMINOPHEN < 10 ug/mL (10-30); ALBUMIN 3.7 g/dL (3.2-5.5); ALBUMIN/GLOBULIN RATIO 1.3 (1.0-2.2); ALKALINE PHOSPHATASE 54 IU/L (42-121); ALT ALANINE AMINOTRANSFERASE 15 IU/L (10-60); AST ASPARTATE AMINOTRANSFERASE 16 IU/L (10-42); BILIRUBIN,TOTAL 0.5 mg/dL (0.2-1.0); BUN - BLOOD UREA NITROGEN 15 mg/dL (6-20); CALCIUM 8.9 mg/dL (8.5-10.3); CARBON DIOXIDE - CO2 26 mmol/L (21-32); CHLORIDE 109 mmol/L (101-111); CREATININE 0.7 mg/dL (0.4-1.0); GFR - MDRD 87 (>89); GLUCOSE 97 mg/dL (70-100); LIPASE 19 U/L (22-51); SALICYLATE < 6.0 mg/dL; SODIUM 143 mmol/L (135-145); TOTAL PROTEIN 6.5 g/dL (6.7-8.2)
[2019-07-08 14:39] LABS: BAND NEUTROPHILS % (MANUAL) 1 %; BASOPHILS # (MANUAL) 0.1 10^3/uL (0-0.1); BASOPHILS % (MANUAL) 1 %; LYMPHOCYTES # (MANUAL) 5.7 10^3/uL (1.5-3.5); LYMPHOCYTES % (MANUAL) 40 %; MONOCYTES # (MANUAL) 1.3 10^3/uL (0.0-1.0)
[2019-07-08 14:41] LABS: DIFFERENTIAL COMMENT MANUAL DIFFERENTIAL; PLATELET ESTIMATE, MANUAL NORMAL (130-450,000) (NORMAL); PLATELET MORPHOLOGY NORMAL APPEARANCE (NORMAL)
[2019-07-08] MEDS ORDERED: METOCLOPRAMIDE 10 MG TABLET PO STA (15:47)
[2019-07-08] MEDS ORDERED: LORazepam 0.5 MG TABLET PO STA ×2 (16:20→19:18)
[2019-07-08] MEDS ORDERED: ONDANSETRON ODT 4 MG TABLET TL PRN (17:51)
[2019-07-08] MEDS ORDERED: SUMAtriptan 6 MG/0.5 ML VIAL SUBQ PRN (17:54)
[2019-07-08] MEDS ORDERED: BENZONATATE 100 MG CAPSULE PO PRN (17:56)
[2019-07-08 17:58] LABS: ACETAMINOPHEN < 10 ug/mL (10-30); SALICYLATE < 6.0 mg/dL
[2019-07-08] MEDS ORDERED: HYDROcod/ACETAM 5/325 MG TABLET PO PRN (17:58)
[2019-07-08] MEDS ORDERED: NICOTINE 21 MG PATCH TOP SCH (18:00)
[2019-07-08] MEDS ORDERED: SUMAtriptan 6 MG/0.5 ML VIAL SUBQ STA (18:13)
[2019-07-08] MEDS ORDERED: ACETAMINOPHEN 325 MG TABLET PO STA (18:13)
[2019-07-08 20:48] VITALS: BP 118/73
[2019-07-08] MEDS ORDERED: MIRTAZAPINE 15 MG TABLET PO SCH (21:00)
[2019-07-08] MEDS ORDERED: DIVALPROEX DR 250 MG TABLET PO SCH (21:00)
[2019-07-08] MEDS ORDERED: BACLOFEN 10 MG TABLET PO SCH (21:00)
[2019-07-08] MEDS ORDERED: clonazePAM 0.5 MG TABLET PO SCH (21:00)
[2019-07-08] MEDS ORDERED: OLANZapine ODT 5 MG TABLET TL SCH (21:00)
[2019-07-08] MEDS ORDERED: metFORMIN 500 MG TABLET PO SCH (21:00)
[2019-07-08] MEDS ORDERED: ATORVASTATIN 10 MG TABLET PO SCH (21:00)
[2019-07-08] MEDS ORDERED: traZODone 50 MG TABLET PO SCH (21:00)
[2019-07-08] MEDS ORDERED: PRAZOSIN 1 MG CAPSULE PO SCH (21:00)
[2019-07-09] MEDS ORDERED: PANTOPRAZOLE 40 MG TABLET PO SCH (07:00)
[2019-07-09] MEDS ORDERED: ASPIRIN EC 81 MG TABLET PO SCH (09:00)
[2019-07-09] MEDS ORDERED: clonazePAM 0.5 MG TABLET PO SCH (09:00)
[2019-07-09] MEDS ORDERED: OLANZapine ODT 5 MG TABLET TL SCH (09:00)
[2019-07-09] MEDS ORDERED: NAPROXEN 250 MG TABLET PO SCH (09:00)
== END 2019-07-08 22:42 ==
LOC: EDUNIT# → ED 13:08
DX: R45.851 Suicidal ideations (principal); E11.9 Type 2 diabetes mellitus without complications; Z79.84 Long term (current) use of oral hypoglycemic drugs; F17.200 Nicotine dependence, unspecified, uncomplicated; Z86.73 Personal history of transient ischemic attack (TIA), and cerebral infarction without residual deficits
CPT/HCPCS: 36415; 80053; 81001; 81025; 83690; 84443; 85025; 93005; 96372; 99283; 99285; A9270; Q0162; 80306; 80307; 80320; 80329; 81003; 87086

== ENCOUNTER 2019-07-19 23:43 | Outpatient (CLI) | payer MEDICARE, MEDICAID | END 2019-07-19 23:44 | disposition critical access hospital (66) | LOC: EMS 23:43 | PROVIDERS: ATTEND Surgery | DX: R45.851 Suicidal ideations (principal) | CPT/HCPCS: A0425; A0429 ==

== ENCOUNTER 2019-07-20 | Emergency (ER) | payer MEDICARE, MEDICAID ==
[2019-07-20 00:09] VITALS: BP 123/97
== END 2019-07-20 01:30 | disposition left against medical advice (07) ==
LOC: EDUNIT# → ED
DX: Z53.21 Procedure and treatment not carried out due to patient leaving prior to being seen by health care provider (principal)

== ENCOUNTER 2019-07-20 11:28 | Outpatient (CLI) | payer MEDICARE, MEDICAID | END 2019-07-20 11:29 | disposition short-term general hospital (02) | LOC: EMS 11:28 | PROVIDERS: ATTEND Surgery | DX: R45.851 Suicidal ideations (principal) | CPT/HCPCS: A0425; A0429; A0888 ==